=== PATIENT | female | born 1995 | race Caucasian/White ===

== ENCOUNTER 2022-10-13 21:14 | Observation (INO) | payer OTHER, MEDICAID, SELFPAY ==
[2022-10-13] VITALS (9 sets, daily range): BP systolic 105–123; BP diastolic 56–71; PULSE 82–90; TEMP 36.8; BMI 47.2
--- NOTE | ~2022-10-13 | US_ITS ---
EXAMINATION: US OB limited DATE: 10/14/2022 11:22 INDICATION: Assess placenta and amniotic fluid index during late second trimester . TECHNIQUE: Real-time ultrasound of the pelvis was performed. The interpreting radiologist was not pre sent for the study. COMPARISON: None. FINDINGS: There is a single living fetus in breech presentation. The placenta is anterior and fundal. he art rate is 148 beats per minute (bpm). The amniotic fluid index is 17.4 cm, which is normal (5th%-95 %: 9.8-21.9 cm at 24 weeks estimated gestational age). IMPRESSION: 1. Single living fetus in breech presentation with heart rate of 148 bpm. 2. Normal amniotic fluid index of 17.4 cm. 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 Single living fetus in breech presentation with heart rate of 148 bpm . 2. Normal amniotic fluid index of 17.4 cm.
--- NOTE | ~2022-10-13 | US_ITS ---
Limited Abdominal Sonogram: Real-time sonographic imaging of the right upper quadrant was performed. Clinical History: Abdominal pain Findings: The liver appears normal with no evidence of mass lesion or bile duct dilatation. Main por jolly vein demonstrates normal direction of flow. The gallbladder is absent, compatible with prior chol ecystectomy. The common bile duct measures 4 mm. The visualized pancreas, aorta, and IVC are unremar kable. Impression: Status post cholecystectomy. No other significant findings. Reviewed, dictated and finalized at location . 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 No other significant findings.
--- NOTE | 2022-10-13 22:28 | OBADM ---
This patient, Violet Cerda, admitted to the OB room OB Post 117 for observation at 2115 for C/O R upper quadrant pain. States had a history of PP Pre-E with last at 4-5 days PP. States had headache yesterday that was alleviated with PO Tylenol. Denies Marino today. Denies visual disturbances. States BP's have been WNL in office. Patient/family oriented to hospital policies and general routines including ID bracelet, bed and alarms, visiting hours, pain management, procedures, bathroom and other care routines, personal items, smoking policy, room service/diet, and visiting hours. Patient/Family are encouraged to report perceived risks to care and to ask questions if they do not understand what they are told or what they should do.
[2022-10-13 23:05] LABS: Appearance Urine Clear (Clear); Bilirubin Urine Negative (Negative); Blood Urine Negative (Negative); Color Urine Yellow (Yellow); Glucose Urine UA Negative (Negative); Ketones Urine Negative (Negative); Leukocyte Esterase Ur Negative LEU/UL (NEGATIVE); Nitrate Urine Negative (Negative); Protein Urine Negative (Negative); Specific Grav Ur 1.015 (1.001-1.035); Urobilinogen Urine 0.2 mg/dL (<2.0)
[2022-10-13 23:13] LABS: Bacteria Urine Trace /hpf; Mucus Urine Rare /lpf; RBC Urine 0-2 /hpf (0-2); Squamous Epithelial Cell Urine Many /hpf (Few); WBC Urine 0-3 /hpf (0-3)
[2022-10-13 23:14] LABS: Add Urine Microscopic? NO
--- NOTE | 2022-10-13 23:29 | PC.NURSE ---
Loki Brush to give report on patients s/s, urine lab results, and vital signs. Orders to give Pepsid and draw CBC, CMP, amylase, and lipase.
[2022-10-14] VITALS (7 sets, daily range): BP systolic 87–116; BP diastolic 35–62; PULSE 80–100; TEMP 36.5–36.6
[2022-10-14 00:06] LABS: Basophils Percent Auto 0.3 % (0.2-1.2); Eosinophils Absolute Auto 0.1 K/mm3 (0-0.3); Eosinophils Percent Auto 0.5 % (0-4.4); Hematocrit 32.8 % (37.0-47.0); Hemoglobin 11.2 g/dL (12.0-15.0); Immature Granulocyte Absolute 0.06 K/mm3 (0.00-0.031); Immature Granulocyte Percent A 0.5 % (0-0.5); Lymphocytes Absolute Auto 2.02 K/mm3 (0.9-3.2); Lymphocytes Percent Auto 17.2 % (18.3-44.2); Mean Corpuscular HGB Conc 34.1 g/dl (32-36); Mean Corpuscular Hemoglobin 30.5 pg (26-34); Mean Corpuscular Volume 89.4 fl (80-100); Mean Platelet Volume 9.7 fl (7.4-10.4); Monocytes Absolute Auto 0.6 K/mm3 (0.1-0.6); Monocytes Percent Auto 4.8 % (2.6-8.5); Neutrophils Percent Auto 76.7 % (45.5-73.1); Platelet Count Result 213 k/mm3 (150-375); Red Blood Count 3.67 M/mm3 (4.2-5.4); Red Cell Distribution Width 13.8 % (11.5-14.5); White Blood Count 11.7 K/mm3 (4.5-10.0)
[2022-10-14 00:21] LABS: Alanine Aminotransferase 10 U/L (6-35); Albumin Level 3.1 g/dL (3.5-5.1); Alkaline Phosphatase 73 U/L (38-126); Amylase 48 U/L (30-110); Anion Gap 3 mmol/L (8-16); Aspartate Amino Transferase 13 U/L (14-36); Bilirubin,Total 0.4 mg/dL (0.2-1.3); Blood Urea Nitrogen 7 mg/dL (7-17); Calcium 8.4 mg/dL (8.4-10.2); Carbon Dioxide 27 mmol/L (22-30); Chloride 105 mmol/L (98-107); Estimated CRCL calculation 174 ml/min; Estimated Glomerular Filt Rate > 60; Glucose 92 mg/dL (65-110); Lipase 56 U/L (23-300); Potassium 3.4 mmol/L (3.4-5.0); Sodium 135 mmol/L (137-145)
--- NOTE | 2022-10-14 00:22 | PC.NURSE ---
Heart tones found at 150s from . No Contractions noted on the monitor from .
--- NOTE | 2022-10-14 00:31 | PC.NURSE ---
Labs called to Mervin Brush. Orders to make patient NPO and to either d/c her to follow up in the morning for imaging to to stay the night and get imaging in the morning. Trudi said it can be patients choice.
--- NOTE | 2022-10-14 00:53 | PC.NURSE ---
Pt while deciding to stay or go gome got up to the restroom and had a back spasm rating it a 7/10. Previous pain was 4/10. Pt reports she wants to stay due to the increase in pain. Called Mervin Brush and orders to give 10 mg flexeril and if the pain is relieved then no need to imaging in the morning and she can be d/c.
[2022-10-14] MEDS: CYCLOBENZAPRINE HCL 10 MG TABLET PO (01:01)
[2022-10-14] MEDS: CALCIUM CARBONATE (TUMS) 500 MG (200 MG ELEMENTAL) PO (01:21)
[2022-10-14] MEDS: ACETAMINOPHEN 500 MG TABLET 1000 MG PO (04:17)
--- NOTE | 2022-10-14 06:28 | PC.NURSE ---
Report given to LUIS Fraga
--- NOTE | 2022-10-14 08:31 | PC.NURSE ---
Dorothea CABALLERO at the bedside.
[2022-10-14] MEDS: MAG HYDROX/AL HYDROX/SIMETH 30 ML UDC PO (10:06)
--- NOTE | 2022-10-14 10:08 | PC.NURSE ---
Mylanta was given to the pt. Regurgitation of medication noted no additional contents noted in emesis bag. Pt does state she is nauseous. Ultrasound notified and will call when the pt is not throwing up.
[2022-10-14] MEDS: ONDANSETRON HCL ODT 4 MG TABLET SUBLINGUAL (10:43)
--- NOTE | 2022-10-14 11:10 | PC.NURSE ---
pt in ultrasound.
--- NOTE | 2022-10-14 11:49 | PC.NURSE ---
Dorothea updated on the pt ultrasound. Orders received for discharge. Pt is to be started on a bland diet and follow up with [facility] in the next week.
--- NOTE | 2022-11-11 10:41 | P.PNOB_ITS ---
OB - Triage/Final Diagnosis Visit Information Comments/Additional reasons for admission: I have assessed the risk for this patient, Violet Cerda, and determined that she would benefit from observation care. Evaluation Laboratory results: Laboratory Tests 10/13/22 10/13/22 10/13/22 22:43 23:51 23:51 WBC 11.7 H RBC 3.67 L Hgb 11.2 L Hct 32.8 L MCV 89.4 MCH 30.5 MCHC 34.1 RDW 13.8 Plt Count 213 MPV 9.7 Immature Gran % (Auto) 0.5 Neut % (Auto) 76.7 H Lymph % (Auto) 17.2 L [place] % (Auto) 4.8 Eos % (Auto) 0.5 Baso % (Auto) 0.3 Lymph # (Auto) 2.02 [place] # (Auto) 0.6 Eos # (Auto) 0.1 Baso # (Auto) 0.0 Abs Immat Gran (auto) 0.06 H Absolute Neuts (auto) 9.0 H Absolute Nucleated RBC 0.0 Nucleated RBC % 0.0 Sodium 135 L Potassium 3.4 Chloride 105 Carbon Dioxide 27 Anion Gap 3 L BUN 7 Creatinine 0.50 L Estim Creat Clear Calc 174 Estimated GFR > 60 Glucose 92 Calcium 8.4 Total Bilirubin 0.4 AST 13 L ALT 10 Alkaline Phosphatase 73 Total Protein 6.0 L Albumin 3.1 L Amylase 48 Lipase 56 Urine Color Yellow Urine Appearance Clear Urine pH 7.0 Ur Specific Gibbs 1.015 Urine Protein Negative Urine Glucose (UA) Negative Urine Ketones Negative Ur Blood (Man) Negative Urine Nitrate Negative Urine Bilirubin Negative Urine Urobilinogen 0.2 Ur Leukocyte Esterase Negative Urine RBC 0-2 Urine WBC 0-3 Ur Squamous Epith Cells Many H Urine Bacteria Trace Urine Mucus Rare Final Diagnosis (1) Acid reflux: Code(s): K21.9 - Gastro-esophageal reflux disease without esophagitis Status: Acute
== END 2022-10-14 12:55 | disposition home or self-care (01) ==
PROVIDERS: Advanced Practice Midwife; Admitting Provider Obstetrics & Gynecology; PCP Nurse Practitioner Family; Visit Provider Obstetrics & Gynecology
DX: O99.612 Diseases of the digestive system complicating pregnancy, second trimester (principal); K21.9 Gastro-esophageal reflux disease without esophagitis; Z3A.24 24 weeks gestation of pregnancy
CPT/HCPCS: 36415; 76705; 76815; 80053; 81003; 82150; 83690; 85025; A9270; G0378; G0379

== ENCOUNTER 2022-11-25 16:35 | Observation (INO) | payer OTHER, MEDICAID, SELFPAY ==
--- NOTE | 2022-11-25 15:15 | OBADM ---
This patient, Violet Cerda, admitted to the OB room OB Post 116 for observation. Patient/family oriented to hospital policies and general routines including ID bracelet, bed and alarms, visiting hours, pain management, procedures, bathroom and other care routines, personal items, smoking policy, room service/diet, and visiting hours. Patient/Family are encouraged to report perceived risks to care and to ask questions if they do not understand what they are told or what they should do.
[2022-11-25 15:30] VITALS: BMI 49.8
[2022-11-25 15:40] VITALS: BP 109/61; PULSE 103
--- NOTE | 2022-11-25 15:40 | PC.NURSE ---
Susannah Allen notified of blood sugar on adm of 111. Orders to recheck patient sugars after dinner. Patient to remain on unit.
[2022-11-25 15:46] VITALS: BP 102/49; PULSE 103
[2022-11-25 16:01] VITALS: BP 106/63; PULSE 103
[2022-11-25 16:16] VITALS: BP 104/49; PULSE 98
[2022-11-25 16:31] VITALS: BP 100/43; PULSE 100
[2022-11-25 17:42] LABS: Glucose Point of Care 111 mg/dl (65-105)
--- NOTE | 2022-11-25 19:18 | PC.NURSE ---
Blood glucose compared to pt's blood glucose meter. Hospital meter-98, pt's meter-102.
--- NOTE | 2022-11-25 19:20 | PC.NURSE ---
Machelle Allen CNM on unit. Informed of blood glucose levels after dinner. December D/C home.
[2022-11-25 19:25] LABS: Glucose Point of Care 98 mg/dl (65-105)
--- NOTE | 2022-12-08 10:46 | PM.OBTRLD ---
OB - Triage/Final Diagnosis Visit Information Comments/Additional reasons for admission: I have assessed the risk for this patient, Violet Cerda, and determined that she would benefit from observation care. Evaluation Laboratory results: Laboratory Tests 11/25/22 11/25/22 15:37 19:21 POC Capillary Glucose 111 H 98 Final Diagnosis (1) Hyperglycemia: Code(s): R73.9 - Hyperglycemia, unspecified Status: Acute
== END 2022-11-25 19:44 | disposition home or self-care (01) ==
PROVIDERS: Admitting Provider Obstetrics & Gynecology; PCP Nurse Practitioner Family; Referring Provider Advanced Practice Midwife; Visit Provider Obstetrics & Gynecology
DX: O26.893 Other specified pregnancy related conditions, third trimester (principal); R73.9 Hyperglycemia, unspecified; Z3A.30 30 weeks gestation of pregnancy
CPT/HCPCS: 82948; G0378; G0379

== ENCOUNTER 2023-01-11 14:22 | Outpatient (CLI) | payer OTHER, MEDICAID, SELFPAY ==
[2023-01-11 16:02] VITALS: BP 122/61
--- NOTE | 2023-01-11 17:20 | PC.NURSE ---
Dr. Kirby notified of three negative ROM pluses. Patient with complaints of fluid still leaking. Dr. Kirby at bedside for sterile speculum exam. Dr. Kirby in agreement with intact membranes.
--- NOTE | 2023-01-11 17:45 | PC.NURSE ---
Dr. Kofi lara discharging patient. Patient given verbal instructions on when to return back.
== END 2023-01-11 17:44 | disposition home or self-care (01) ==
LOC: ANHOBOP 15:47
PROVIDERS: PCP Family Medicine; Visit Provider Obstetrics & Gynecology
DX: O42.90 Premature rupture of membranes, unspecified as to length of time between rupture and onset of labor, unspecified weeks of gestation (principal); Z3A.00 Weeks of gestation of pregnancy not specified
CPT/HCPCS: 59025; 84112

== ENCOUNTER 2023-01-15 16:11 | Outpatient (CLI) | payer OTHER, MEDICAID, SELFPAY ==
[2023-01-15] VITALS (10 sets, daily range): BP systolic 108–118; BP diastolic 48–76; PULSE 86–107; BMI 49.9
[2023-01-15 17:24] LABS: Glucose Point of Care 93 mg/dl (65-105)
[2023-01-15] MEDS: ACETAMINOPHEN/BUTALBITAL/CAFFEINE 325-50-40 MG TABLET (FIORICET) 1 TAB PO (17:26)
[2023-01-15] MEDS: METOCLOPRAMIDE HCL 5 MG TABLET PO (17:27)
--- NOTE | 2023-01-15 18:10 | OBADM ---
This patient, Violet Cerda, admitted to the OB room OB Post 115 for observation. Patient/family oriented to hospital policies and general routines including ID bracelet, bed and alarms, visiting hours, pain management, procedures, bathroom and other care routines, personal items, smoking policy, room service/diet, and visiting hours. Patient/Family are encouraged to report perceived risks to care and to ask questions if they do not understand what they are told or what they should do.
== END 2023-01-15 19:00 | disposition home or self-care (01) ==
LOC: ANHOBOP 16:18 → ANHOBPP 16:19
PROVIDERS: PCP Family Medicine; Visit Provider Obstetrics & Gynecology
DX: O13.9 Gestational [pregnancy-induced] hypertension without significant proteinuria, unspecified trimester (principal)
CPT/HCPCS: 82948; 99199; A9270

== ENCOUNTER 2023-01-25 10:10 | Outpatient (CLI) | payer OTHER, MEDICAID, SELFPAY ==
[2023-01-25 10:47] LABS: Hematocrit 36.5 % (37.0-47.0); Hemoglobin 12.4 g/dL (12.0-15.0); Mean Corpuscular Hemoglobin 29.8 pg (26-34); Mean Corpuscular Volume 87.7 fl (80-100); Mean Platelet Volume 11.2 fl (7.4-10.4); Platelet Count Result 201 k/mm3 (150-375); Red Blood Count 4.16 M/mm3 (4.2-5.4); Red Cell Distribution Width 13.3 % (11.5-14.5); White Blood Count 10.5 K/mm3 (4.5-10.0)
[2023-01-27 13:16] LABS: Rapid Plasma Reagin Non-Reactive (NonReactive)
== END 2023-01-25 10:11 | disposition home or self-care (01) ==
PROVIDERS: PCP Family Medicine; Visit Provider Obstetrics & Gynecology
DX: Z34.93 Encounter for supervision of normal pregnancy, unspecified, third trimester (principal); Z3A.00 Weeks of gestation of pregnancy not specified
CPT/HCPCS: 36415; 85027; 86592; 86850; 86900; 86901

== ENCOUNTER 2023-01-27 10:00 | Inpatient (IN) | payer OTHER, MEDICAID, SELFPAY ==
--- NOTE | 2023-01-07 13:16 | PC.NURSE ---
Patient states she is going to be C/S for transverse baby-- no on surgery schedule at time of pre-admit Instructed patient to be in OB 2 hours before surgery,NPO after midnight the night before surgery and to get labs drawn prior to surgery as instructed on paper work given to patient at pre-admit appointment
[2023-01-27] VITALS (56 sets, daily range): BP systolic 82–127; BP diastolic 31–94; PULSE 57–147; RESP 15–20; TEMP 36.2–36.8; O2SAT 88–100; BMI 50.5
[2023-01-27 10:56] LABS: Glucose Point of Care 76 mg/dl (65-105)
[2023-01-27] MEDS: CLINDAMYCIN 900 MG/D5W 50 ML 900 MG/50 ML PIGGYBACK 50 MG IVPB (11:06)
[2023-01-27] MEDS: LACTATED RINGERS 1,000 ML 125 ML IV CONT (11:06)
--- NOTE | 2023-01-27 11:51 | WPDANESEPPF ---
Anes - Initial Pre Proc Eval Procedure: Operation Date: 01/27/23 12:00 Proposed Procedures p Section - Mireya Kirby MD Date/Time: 01/27/23 11:51 Surgeon: Mireya Kirby MD Pre Op Diagnosis: C/S Patient Data Age: 27 Gender: F Height: 1.55 m Weight: 121.5 kg Last Vital Signs Pulse 90 01/27/23 11:01 BP 102/69 01/27/23 11:01 Allergies Allergy/AdvReac Type Severity Reaction Status Date / Time hydrocodone Allergy Severe Anaphylaxis Verified 10/14/22 04:07 Penicillins Allergy Severe Anaphylaxis Verified 10/14/22 04:07 amoxicillin Allergy Intermediate Rash Verified 10/14/22 04:07 doxycycline Allergy Intermediate Rash Verified 10/14/22 04:07 nitrofurantoin Allergy Intermediate Hives Verified 10/14/22 04:07 phentermine AdvReac Intermediate Hypertensio Verified 10/14/22 04:07 n Home Medications Medication Instructions Recorded Confirmed Type cholecalciferol (vitamin D3) 1,250 1,250 mcg PO DAILY 03/19/22 01/27/23 History mcg (50,000 unit) capsule aspirin 81 mg tablet,delayed 81 mg PO DIRECTED 10/13/22 01/27/23 History release (Hayley Low Dose Aspirin) vitamin with calcium 1 tablet PO DIRECTED 10/13/22 01/27/23 History no.72-iron 27 mg-folic acid 1 mg tablet ( Vitamins Plus Low Iron) Lactobacillus 1 cap PO DAILY 01/07/23 01/27/23 History acidophilus-Bifidobac.animalis 2.5 billion cell capsule (Daily Probiotic) insulin NPH isoph U-100 human 100 36 unit subcut HS 01/07/23 01/27/23 History unit/mL (3 mL) subcutaneous pen (Humulin N NPH U-100 Insulin KwikPen) Laboratory Tests 01/27/23 10:52 POC Capillary Glucose 76 mg/dl (65-105) Patient hx anesthesia problems: none Family hx anesthesia problems: none Results Review: All pre-operative results and documents have been reviewed as part of the pre-operative evaluation. [facility] Past Medical History Medical History Gestational diabetes Placental insufficiency Preeclampsia Vitamin D deficiency Surgical History Surgical History H/O eye surgery Hx of cholecystectomy Family History Family History Father Colon cancer Diabetes mellitus Heart disease Cirrhosis Patient's father is , Onset Age: 58 Cerebrovascular accident Grandparent Ovarian cancer Diabetes mellitus Heart disease Hypertension Cerebrovascular accident Sibling Yepez's palsy Social History Social History Social History: never smoker Smoking status: Never smoker Alcohol intake: never Substance use: never Lack of Transportation: No Lack of Food: Never True Current Housing: I Have Housing Concerned About Future Housing: No Difficulty Paying Gas/Electric Bills: No Difficulty Paying for Meds: No Currently Unemployed: No Education: High School Diploma/GED Difficulty w/ Childcare or Family Care: No Spiritual care concerns: No Anes - Eval Final PreProcedure Day of Procedure 01/27/23 11:51 Patient weight: super morbidly obese Heart: regular rate and rhythm Lungs: decreased breath sounds Airway: Mallampati scale class II Neurological: alert and oriented Last oral intake: >/= 8 hours ASA classification: III Emergent: no Anesthetic plan: proceed Anesthesia type and monitoring: regional spinal and standard monitoring Results Review: All pre-operative results and documents have been reviewed as part of the pre-operative evaluation. Informed Consent: The patient's anesthetic plan and its attendant risks and benefits were discussed with the patient/family/POA. Questions were solicited and answers provided to the satisfaction of the patient/family/POA.
--- NOTE | 2023-01-27 11:53 | PM.IMHP ---
H&P: HPI History of Present Illness Date/Time: 01/27/23 11:53 Chief Complaint: primary cs Narrative: Violet is a at 39.2 for primary CS for h/o shoulder dystocia with brachial plexus injury. complicated by COVID during , GDMA2 on insulin at HS, CF carrier (FOB neg), obesity. She had PP pRe E last . GBS neg. Review of Systems Review of Systems: All systems reviewed & are unremarkable except as noted in HPI and below PMFSH Past Medical History Medical History Gestational diabetes Placental insufficiency Preeclampsia Vitamin D deficiency Surgical History Surgical History H/O eye surgery Hx of cholecystectomy Family History Family History Father Colon cancer Diabetes mellitus Heart disease Cirrhosis Patient's father is , Onset Age: 58 Cerebrovascular accident Grandparent Ovarian cancer Diabetes mellitus Heart disease Hypertension Cerebrovascular accident Sibling Yepez's palsy Social History Social History Social History: never smoker Smoking status: Never smoker Alcohol intake: never Substance use: never Lack of Transportation: No Lack of Food: Never True Current Housing: I Have Housing Concerned About Future Housing: No Difficulty Paying Gas/Electric Bills: No Difficulty Paying for Meds: No Currently Unemployed: No Education: High School Diploma/GED Difficulty w/ Childcare or Family Care: No Spiritual care concerns: No Meds Home Medications and Allergies Home Medications Medication Instructions Recorded Confirmed Type cholecalciferol (vitamin D3) 1,250 1,250 mcg PO DAILY 03/19/22 01/27/23 History mcg (50,000 unit) capsule aspirin 81 mg tablet,delayed 81 mg PO DIRECTED 10/13/22 01/27/23 History release (Hayley Low Dose Aspirin) vitamin with calcium 1 tablet PO DIRECTED 10/13/22 01/27/23 History no.72-iron 27 mg-folic acid 1 mg tablet ( Vitamins Plus Low Iron) Lactobacillus 1 cap PO DAILY 01/07/23 01/27/23 History acidophilus-Bifidobac.animalis 2.5 billion cell capsule (Daily Probiotic) insulin NPH isoph U-100 human 100 36 unit subcut HS 01/07/23 01/27/23 History unit/mL (3 mL) subcutaneous pen (Humulin N NPH U-100 Insulin KwikPen) Allergies Allergy/AdvReac Type Severity Reaction Status Date / Time hydrocodone Allergy Severe Anaphylaxis Verified 10/14/22 04:07 Penicillins Allergy Severe Anaphylaxis Verified 10/14/22 04:07 amoxicillin Allergy Intermediate Rash Verified 10/14/22 04:07 doxycycline Allergy Intermediate Rash Verified 10/14/22 04:07 nitrofurantoin Allergy Intermediate Hives Verified 10/14/22 04:07 phentermine AdvReac Intermediate Hypertensio Verified 10/14/22 04:07 n Vital Signs Vital Signs - 24 hr 01/27/23 10:31 01/27/23 10:46 01/27/23 11:01 Pulse Rate 80 76 90 Blood Pressure 108/67 110/72 102/69 Exam Const: General: no acute distress Resp: Effort & Inspection: normal respiratory effort Auscultation: clear to auscultation bilaterally Cardio: Rate: regular rate Rhythm: regular rhythm GI: GI Palp: Yes Soft to palpation Extrem: General: normal to inspection Assessment and Plan Assessment and plan (1) GDM, class A2: Code(s): O24.419 - Gestational diabetes mellitus in , unspecified control Status: Acute (2) History of shoulder dystocia in prior : Code(s): Z87.59 - Personal history of other complications of , childbirth and the puerperium Status: Acute (3) Obesity affecting : Code(s): O99.210 - Obesity complicating , unspecified trimester Status: Acute Plan consented for primary CS for
--- NOTE | 2023-01-27 11:57 | WPDHPUPDATE1 ---
History and Physical Update Update Date/Time: 01/27/23 11:57 History and Physical has been reviewed, including an updated exam of the patient. There are NO changes in the patient's condition. Risks, benefits, and alternatives have been discussed and questions answered. Patient agrees to proceed with procedure.
[2023-01-27] MEDS: GENTAMICIN SULFATE INJ 385 MG in DEXTROSE 5% 100 ML 95.12 MG IVPB (12:07)
[2023-01-27] MEDS: KETOROLAC 30 MG/ML VIAL (*BKC) IV PUSH ×2 (12:45→18:07)
--- NOTE | 2023-01-27 13:25 | PM.OBPRVD ---
OB - Delivery Note Procedure Delivery date: 01/27/23 Procedure: Procedures Operation Date: 01/27/23 12:00 <No data on this case meets the specified criteria> primary low transverse section Events: Other (history of shoulder dystocia) Route of delivery: Prior to decision for section, ACOG/SMFM labor guidelines were considered and discussed with the patient and staff. Decision made to proceed with the section.: Yes Specimen: Yes (placenta) Quantitative Blood Loss (ml): 315 Anesthesia type: Spinal Disposition: Floor Complications: none Narrative: PreOp Dx: IUP 39.2, prior shoulder dystocia with brachial plexus injury Post op Dx: same The patient was taken to the OR and received spinal anesthesia. She was placed in dorsal supine position with left lateral tilt. SCDs and carrizales were placed. She was prepped and draped in the normal sterile fashion. A Pfannensteil skin incision was made and carried through to the underlying layer of fascia. The fascia was incised in the midline and then extended laterally using Lang scissors. The muscles were in the midline and the peritoneum was entered bluntly. The peritoneal incision was extended inferiorly and superiorly with care to avoid the bladder. The bladder blade was then inserted, the vesicouterine peritoneum was grasped, incised with Metzenbaum scissors, and a bladder flap created. The bladder blade was reinserted. A low transverse uterine incision was made with a scalpel and extended bluntly. AROM was performed and fluid was noted to be clear. The head was delivered, followed by the remainder of the baby. The baby's oropharynx was suctioned. After 30 seconds, the cord was clamped and cut and the was handed off. Cord blood was obtained and the placenta was then removed manually. The uterus was exteriorized. A moist lap sponge was used to curette the endometrium. The uterine incision was then closed with one layer of 0-Vicryl in a running, locking fashion. Good hemostasis was noted. The posterior cul de sac was irrigated with normal saline and cleared of all clot and debris. The uterus was returned to the abdomen. Both lateral gutters were then irrigated. The rectus muscles were inspected and found to be hemostatic. The fascia was reapproximated using 0-Vicryl in running fashion. The subcutaneous tissue was irrigated with normal saline and made hemostatic with Bovie electrocautery. The subcutaneous tissue was reapproximated with a layer of running 2-0 plain gut. The skin was then closed with absorbable susan. Steri strips and a bandage were applied. The uterus was evacuated. The patient tolerated the procedure very well. All counts were correct. She was taken to the recovery room in good condition. [place] Baby Date of : 01/27/23 Time of : 12:40 Weeks of gestation at delivery: 39 Infant gender: Male Weight (pounds): 7 Weight (ounces): 7 presentation: vertex Placenta delivery description: Manual Removal Cord Vessel Description: 3 Vessels and Delayed Cord Clamping score one minute: 8 score five minutes: 9
[2023-01-27] MEDS: OXYTOCIN 30 UNITS/NS 500 ML 30 UNITS/500 ML BAG 125 UNITS IV CONT (13:42)
[2023-01-27] MEDS: diphenhydrAMINE HCl INJ 50 MG/ML VIAL 25 MG IV PUSH (15:30)
--- NOTE | 2023-01-27 16:53 | PC.NURSE ---
Patient transferred to post room #292 via stretcher. Support person present. Oriented to unit, room, information board, rooming in, admission packet and security measures. Patient verbalizes understanding.
[2023-01-27] MEDS: KCL 20 MEQ/D5/0.45% SOD CHL 1,000 ML 125 ML IV CONT (18:03)
[2023-01-27] MEDS: oxyCODONE/ACETAMINOPHEN (*CRX) 5-325 MG TABLET 1 TABLET PO (22:39)
[2023-01-28] MEDS: KETOROLAC 30 MG/ML VIAL (*BKC) IV PUSH (00:01)
[2023-01-28] MEDS: oxyCODONE/ACETAMINOPHEN (*CRX) 5-325 MG TABLET 1 TABLET PO ×5 (05:42→22:58)
[2023-01-28] MEDS: IBUPROFEN 600 MG TABLET PO ×3 (05:43→18:51)
[2023-01-28 06:15] LABS: Basophils Percent Auto 0.2 % (0.2-1.2); Eosinophils Percent Auto 0.2 % (0-4.4); Hematocrit 30.7 % (37.0-47.0); Hemoglobin 10.1 g/dL (12.0-15.0); Immature Granulocyte Absolute 0.06 K/mm3 (0.00-0.031); Immature Granulocyte Percent A 0.6 % (0-0.5); Lymphocytes Absolute Auto 1.54 K/mm3 (0.9-3.2); Lymphocytes Percent Auto 15.7 % (18.3-44.2); Mean Corpuscular HGB Conc 32.9 g/dl (32-36); Mean Corpuscular Hemoglobin 29.6 pg (26-34); Mean Platelet Volume 11.5 fl (7.4-10.4); Monocytes Absolute Auto 0.6 K/mm3 (0.1-0.6); Monocytes Percent Auto 5.8 % (2.6-8.5); Neutrophils Absolute Auto 7.6 K/mm3 (1.3-6.7); Neutrophils Percent Auto 77.5 % (45.5-73.1); Platelet Count Result 151 k/mm3 (150-375); Red Blood Count 3.41 M/mm3 (4.2-5.4); Red Cell Distribution Width 13.5 % (11.5-14.5); White Blood Count 9.8 K/mm3 (4.5-10.0)
--- NOTE | 2023-01-28 07:52 | PM.OBPNVD ---
OB - PN: Subj Subjective Date/time seen: 01/28/23 07:52 Patient comments: no complaints and pain well controlled baby status: doing well [place] feeding status: breast and bottle feeding Narrative: POD 1 from primary CS. Doing well. Normal lochia. Eating, ambulating, carrizales still in. OB - PN: Obj Data Labs 01/28/23 04:53 Labs: Laboratory Results - last 24 hr 01/27/23 01/28/23 10:52 04:53 WBC 9.8 RBC 3.41 L Hgb 10.1 L Hct 30.7 L MCV 90.0 MCH 29.6 MCHC 32.9 RDW 13.5 Plt Count 151 MPV 11.5 H Immature Gran % (Auto) 0.6 H Neut % (Auto) 77.5 H Lymph % (Auto) 15.7 L [place] % (Auto) 5.8 Eos % (Auto) 0.2 Baso % (Auto) 0.2 Lymph # (Auto) 1.54 [place] # (Auto) 0.6 Eos # (Auto) 0.0 Baso # (Auto) 0.0 Abs Immat Gran (auto) 0.06 H Absolute Neuts (auto) 7.6 H Absolute Nucleated RBC 0.0 Nucleated RBC % 0.0 POC Capillary Glucose 76 OB - PN A/P Plan day: 1 Plan: routine care Comments: circumcision done Time Spent With Patient Time: Total time spent is greater than 50% in coordination of care (as documented) at patient's floor/unit and/or counseling patient: Exam Narrative: NAD abdomen soft, appropriately tender, incision bandaged Extremities nontender with 1+ edema
--- NOTE | 2023-01-28 08:01 | WPDANLDPN2 ---
Anes-Prog Note L&D Date/Time: 01/28/23 08:01 Neuro status: Neuro function grossly intact. Vital Signs: Last Vital Signs Temp 36.8 C 01/27/23 23:35 Pulse 88 01/27/23 23:35 Resp 20 01/27/23 23:35 BP 119/76 01/27/23 23:35 Pulse Ox 97 01/27/23 23:35 O2 Del Method Room Air 01/27/23 15:30 Pain score (VAS): 0 I/O: Intake & Output 01/27/23 01/28/23 01/28/23 23:59 07:59 15:59 Intake Total 1200 Output Total 725 800 Balance 475 -800 Patient feedback: Patient satisfied with anesthetic care.
--- NOTE | 2023-01-28 08:01 | WPDANLDNPN2 ---
Anes-Prog Note L&D-Neuraxial Date/Time: 01/28/23 08:01 Patient feedback: Patient satisfied with post-operative pain management.
[2023-01-28 08:55] VITALS: BP 116/67; PULSE 79; RESP 16; TEMP 36.5; O2SAT 98
[2023-01-28] MEDS: DOCUSATE SODIUM 100 MG CAPSULE PO ×2 (09:50→16:34)
[2023-01-28] MEDS: MULTIVIT/MIN/PREN/FOL AC/IRON TABLET 1 TAB PO (09:50)
[2023-01-28 12:33] VITALS: BP 120/82; PULSE 88; RESP 18; TEMP 36.7; O2SAT 97
--- NOTE | 2023-01-28 16:12 | PC.NURSE ---
[id number] Introductions were made, then consulted with patient to assess needs related to . Mother led the conversation with her?plans to feed?her infant and the?experience so far. Resources provided for inpatient and outpatient services with the feeding sheet, mom/baby guide and name written on the white board. Mother voiced understanding of information and requested assistance. Mother works well with her with encouragement and education. Encouraged understanding of the benefits of skin to skin (demonstrating unwrapping infant and placing upright on her chest), stimulating with massage touch, changing positions to encourage wakefulness, how to watch for early feeding cues, responsive feeding, feeding on demand (aiming for 8-12 times in 24 hours, about every 2-3 hours), milk production, building/maintaining a milk supply, duration of feeding, signs of adequate intake/output and how to record on the feeding sheet. Reviewed positioning and ear, shoulder, hip alignment, supporting the breast to facilitate a deep latch, asymmetrical latch (off-center), leading with the chin with a big, open, wide gape and body close to mother. Infant latched optimally to the right breast in football position. Education given to mother of how to visualize suck/swallow ratios and listen for drinking at the breast. Infant was able to maintain latch without discomfort to mother. Nipple care reviewed with optimal latch and good positioning. Reviewed good handwashing when or touching the breast/nipples to prevent infection. Resources used to facilitate learning were used with the tool. Mother voiced understanding of skin to skin, stimulating with massage touch, responsive feedings, hand expressed colostrum, talking to infant to encourage if it has been 2 -2.5 hours since the start of the last , to call if does not latch, or if there is discomfort with . Resources provided for inpatient/outpatient with business card, feeding sheet and the mom/baby guide. Mother voiced understanding of information, demonstrated learning and will call if there is a request for assistance. Reported to the primary RN.
[2023-01-29 00:04] VITALS: BP 105/68; PULSE 92; RESP 17; TEMP 36.5; O2SAT 98
[2023-01-29] MEDS: IBUPROFEN 600 MG TABLET PO ×2 (01:05→08:35)
[2023-01-29] MEDS: oxyCODONE/ACETAMINOPHEN (*CRX) 5-325 MG TABLET 1 TABLET PO ×3 (02:50→13:03)
--- NOTE | 2023-01-29 07:27 | PM.OBPNVD ---
OB - PN: Subj Subjective Date/time seen: 01/29/23 07:27 Patient comments: no complaints and pain well controlled baby status: doing well and bottle feeding well Narrative: ready for DC today OB - PN: Obj Data Labs 01/28/23 04:53 OB - PN A/P Plan day: 2 Plan: routine care and discharge home Time Spent With Patient Time: Total time spent is greater than 50% in coordination of care (as documented) at patient's floor/unit and/or counseling patient: Exam Narrative: NAD abdomen soft, appropriately tender, incision CDI Extremities nontender with 1+ edema
[2023-01-29 07:30] VITALS: BP 123/76; PULSE 88; RESP 16; TEMP 37; O2SAT 96
--- NOTE | 2023-01-29 07:30 | PM.OBDSVD ---
DS: Admitting Diagnosis Discharge Date 01/29/23 Admitting Diagnosis IUP 39w, history of shoulder dystocia DS: Discharge Diagnosis Discharge Diagnosis (1) delivery delivered: Code(s): O82 - Encounter for delivery without indication Status: Acute (2) History of shoulder dystocia in prior : Code(s): Z87.59 - Personal history of other complications of , childbirth and the puerperium Status: Acute OB - DS: Summary Hospital Course Hospital Course: Violet was admitted for primary section for history of shoulder dystocia. Her delivery and course were uncomplicated and she was discharged home on POD 2. OB Procedures : Ultrasound OB Procedures Intrapartum: OB Procedures: : None Peripartum Data Delivery Method: Section Procedures: Procedures Operation Date: 01/27/23 12:00 Actual Procedure Side Surgeon p Section Mireya Kirby MD complications: none Status at Discharge Functional status at discharge: independent ambulation Time Spent with Patient Time attestation: Total time spent providing and/or coordinating discharge services: Exam Narrative: NAD abdomen soft, appropriately tender, incision CDI Discharge Plan Discharge Attending physician on discharge: Mireya Kirby Discharging Clinician: Mireya Kirby Anticipated Discharge Date/Time: 01/29/23 07:27 Patient Disposition: Home, Self-Care Activity: may shower, may drive after 2 weeks and pelvic rest Diet: regular Patient Instructions: Antibiotic Form Stand Alone Forms: General Discharge Information Follow-up/Referrals: Mireya Kirby MD [Physician] - 1 Week Discharge Medications: New oxycodone-acetaminophen 5-325 mg Tablet 1 tablet PO Q4H PRN (Reason: Pain Rated 5-10) Qty: 30 0RF docusate sodium 100 mg Capsule 100 mg PO BID PRN (Reason: Constipation) Qty: 60 0RF ibuprofen 600 mg Tablet 600 mg PO Q6H PRN (Reason: Cramping) Qty: 60 0RF Continued cholecalciferol (vitamin D3) 1,250 mcg (50,000 unit) capsule 1,250 mcg PO DAILY Vitamin Plus Low Iron 27 mg iron- 1 mg Tablet 1 tablet PO DIRECTED Daily Probiotic 2.5 billion cell Capsule 1 cap PO DAILY Discontinued aspirin [Hayley Low Dose Aspirin] 81 mg Tablet,Delayed Release (Dr/Ec) 81 mg PO DIRECTED Humulin N NPH Insulin AshwiniPen 100 unit/mL (3 mL) Insulin Pen 36 unit SUBCUT HS Date of admission: 01/27/23 10:00 Primary Care Provider: Ene,[place] Carty Admitting Provider: Mireya Kirby Attending physician on admission: Mireya Kirby Condition: Stable
[2023-01-29] MEDS: MULTIVIT/MIN/PREN/FOL AC/IRON TABLET 1 TAB PO (08:35)
[2023-01-29] MEDS: DOCUSATE SODIUM 100 MG CAPSULE PO (08:36)
[2023-01-29] MEDS: SIMETHICONE 80 MG TAB.CHEW PO (08:36)
[2023-01-29] MEDS: TETANUS,DIPHTHERIA,AC PERTUSSIS ADULT (0.5 ML) BOOSTRIX IM (08:37)
[2023-01-29] MEDS: LANOLIN (LANSINOH) 7.5 GM CREAM 1 APPLIC TOPICAL (08:38)
[2023-01-29 08:45] VITALS: PULSE 88; RESP 16; O2SAT 96
--- NOTE | 2023-01-29 08:45 | PC.NURSE ---
PT introductions made and plan of care discussed per post op c section, pain management, breast feeding, pumping and supplementing, daily care activities and pending discharge to home. PT and spouse both recipients of such instructions and no barriers to learning identified at this time. PT received such instructions via one to one discussion, mom baby care guide and demonstrations this shift. PT verbalized understanding of such care.
--- NOTE | 2023-01-29 13:00 | PC.NURSE ---
Pt received discharge instructions per protocol and verbalized understanding of such care. Patient viewed the discharge video Mother & Baby Care, The First Two Weeks . Patient was given the opportunity and encouraged to ask questions. Patient verbalized understanding of information shared and has been given the mother/baby guide for home reference.
--- NOTE | 2023-01-29 13:28 | PC.NURSE ---
[id number] Purposefully rounded to assess needs. Mother is going to take a shower and call for assistance later. [phone] Mother requested assistance with . Mother led conversation with her experience with feeding baby so far and is concerned that isn't getting enough in his mouth. Mother works well with her with encouragement. Reviewed working with infant, supporting breast and how to protect the nipples with an optimal deep latch, good positioning, and good hand washing. Encouraged understanding the benefits of skin to skin, responding to feeding cues, frequencies of feeding 8-12 times in 24 hours (approximately 2-3 hours), duration of feedings, milk production, intake/output feeding sheet and signs of adequate intake encouraging swallowing at the breast. Reviewed positioning and alignment, supporting breast, off-centered (asymmetrical latch) and leading with the chin with big, open, wide gape. latched optimally to the left, then the right breast in football position. Mother states there is discomfort with the initial latch, then it subsides. Education given to mother of how to visualize suck/swallow ratios and listen for drinking at the breast. was able to maintain latch without discomfort to mother, however, at times mother states if felt pinchy . Slight misshaping was visualized after was detached from the left breast, which the parents state has been the more difficult side to latch to. Nipple care reviewed with optimal latch, good positioning and using clean hands when feeding her infant and touching her breast. Discussed deep latching without pain and suggested a conversation with the ICP concerning the lower frenulum visualized as tight. Mother states at times it is uncomfortable to latch but it subsides and other times it is painful. Reviewed how to detach, protecting her nipple with big, wide,open gape deep with a mouthful. If has difficulty or there is pain with latching to call for support and/or the ICP to reassess the lower frenulum. Infant was able to latch to the right breast without misshaping the nipple. Parents were given the risks and benefits of bottle feeding their infant breast milk, formula, and how to protect the milk supply.Resources used to facilitate learning were used from the tool, mom and baby guide, and several questions were asked from the parents and appropriately answered. Mother shares her confidence in her ability to feed her either with , pump and breast milk, or father feeding a bottle of formula. Reminded parents to use good handwashing technique to prevent infection and what to do if infection occurs. Mother is feeding appropriately for growth of infant and understands stimulating infant to eat if needed. has had appropriate feedings in the last 24 hours meets the outcomes for weight, output and jaundice at this time. Reinforced understanding of milk production, transition of milk, signs of adequate intake, transition of stool, prevention/relief of engorgement and masitis, responsive watching for feeding cues, the different methods of stimulating infant to breastfeed 2-3 hours after the start of the last feeding, community resources, medication information reviewed per [employer] and when to call a provider using the resource of the mom and baby guide. Parents voiced understanding of the education shared.
--- NOTE | 2023-01-29 14:00 | PC.NURSE ---
Pt discharged to home ambulatory accompanied by spouse and and taken to waiting car. follow up appts confirmed
[2023-01-31 10:25] VITALS: BP 133/88; PULSE 88; RESP 20; TEMP 36.8; O2SAT 100
== END 2023-01-29 14:00 | disposition home or self-care (01) | DRG 788 ==
LOC: ANHLDR 10:12 → ANHOB2 16:57
PROVIDERS: Admitting Provider Obstetrics & Gynecology; PCP Family Medicine; Visit Provider Obstetrics & Gynecology
PROC: 10D00Z1 Extraction of Products of Conception, Low, Open Approach (ICD-10-PCS; CPT 59514; principal; 2023-01-27 12:00)
DX: O34.219 Maternal care for unspecified type scar from previous cesarean delivery (principal); O99.214 Obesity complicating childbirth; O24.424 Gestational diabetes mellitus in childbirth, insulin controlled; Z3A.39 39 weeks gestation of pregnancy; Z37.0 Single live birth; Z87.59 Personal history of other complications of pregnancy, childbirth and the puerperium; Z86.16 Personal history of COVID-19
CPT/HCPCS: 36415; 82948; 85025; 85027; 86592; 86850; 86900; 86901; 90715; A9270; J1200; J1580; J1885; J2274; J2370; J2590; J3480; J7120

== ENCOUNTER 2023-01-30 16:39 | Outpatient (CLI) | payer OTHER, MEDICAID, SELFPAY ==
[2023-01-30 17:10] VITALS: BP 113/63; PULSE 85
[2023-01-30 17:13] VITALS: BP 128/78; PULSE 88
[2023-01-30 17:16] VITALS: BP 133/79; PULSE 87
[2023-01-30 17:31] VITALS: BP 120/76; PULSE 84
[2023-01-30 17:32] VITALS: BP 124/78; PULSE 86
--- NOTE | 2023-01-30 17:39 | PC.NURSE ---
Dr. No notified of patient in unit. Blood pressure readings given. OK to go home per Dr. No. Educated patient on pain medications, fluids and rest. Patient verbalized understanding.
== END 2023-01-30 17:40 | disposition home or self-care (01) ==
LOC: ANHOBPP 16:53 → ANHOBOP 01-31 10:25
PROVIDERS: PCP Family Medicine; Visit Provider Obstetrics & Gynecology
DX: O13.9 Gestational [pregnancy-induced] hypertension without significant proteinuria, unspecified trimester (principal)
CPT/HCPCS: 99199

== ENCOUNTER 2023-03-13 14:07 | Inpatient (IN) | payer OTHER, MEDICAID, SELFPAY ==
[2023-03-13] VITALS (25 sets, daily range): BP systolic 119–164; BP diastolic 72–118; PULSE 65–91; RESP 14–25; TEMP 36.2–36.9; O2SAT 97–100
--- NOTE | ~2023-03-13 | CT_ITS ---
EXAMINATION: CT brain wo con DATE: 03/13/2023 15:01 INDICATION: Headache. . TECHNIQUE: Computed tomography (CT) of the head was performed without intravenous contrast. The mA wa s adjusted according to patient size. Iterative reconstruction technique was employed. The dose-lengt h product was 605.33 mGy-cm. COMPARISON: None FINDINGS: There is no intracranial hemorrhage, acute infarction, or abnormal intracranial mass lesion . The ventricles are normal in size. The orbits are normal. There is mild mucosal thickening in the e thmoid sinuses. The mastoid air cells are normal. IMPRESSION: 1. Normal brain. Reviewed, dictated and finalized at location A. IMPRESSION: 1. Normal brain.
--- NOTE | ~2023-03-13 | XR_ITS ---
EXAMINATION: XR chest 1V DATE: 03/13/2023 15:05 INDICATION: Hypertension. Headache. TECHNIQUE: A single frontal view of the chest was obtained. COMPARISON: None. FINDINGS: The chest demonstrates clear lungs without pneumonia, pleural effusion, or pneumothorax. Th e heart size is normal. IMPRESSION: 1. No acute cardiopulmonary disease. Reviewed, dictated and finalized at location A.
--- NOTE | 2023-03-13 14:34 | ED.GENADULT ---
HPI - General Adult General Chief complaint: Recheck/Abnormal Lab/Rx <Jacek Darnell PA-C - Last Filed: 03/14/23 08:57> Stated complaint: htn, headache, <Jacek Darnell PA-C - Last Filed: 03/14/23 08:57> Time Seen by Provider: 03/13/23 14:22 <Jacek Darnell PA-C - Last Filed: 03/14/23 08:57> Source: patient <Jacek Darnell PA-C - Last Filed: 03/14/23 08:57> Mode of arrival: ambulatory <Jacek Darnell PA-C - Last Filed: 03/14/23 08:57> Limitations: no limitations <Jacek Darnell PA-C - Last Filed: 03/14/23 08:57> History of Present Illness HPI narrative: This is a 27-year-old female who presents to the ED with chief complaint of high blood pressures and headache ongoing for the past couple of days. She is 6 weeks . She reports headache is diffuse and has been mild for the past few days and easily controllable with Tylenol. However she started to have more severe headache today about 2 hours prior to arrival so she called her OB office. She states they instructed her to present to labor and delivery which she did and they sent her to the ER for initial evaluation. Patient also reports intermittent right upper quadrant pain. She is status post cholecystectomy. Denies numbness, weakness, vision changes, speech problems, LOC, injury. <Jacek Darnell PA-C - Last Filed: 03/14/23 08:57> Related Data Home medications: Home Medications Medication Instructions Recorded Confirmed cholecalciferol (vitamin D3) 1,250 1,250 mcg PO WEEKLY 03/19/22 03/15/23 mcg (50,000 unit) capsule vitamin with calcium 1 tablet PO DIRECTED 10/13/22 03/13/23 no.72-iron 27 mg-folic acid 1 mg tablet ( Vitamins Plus Low Iron) Lactobacillus 1 cap PO DAILY 01/07/23 03/13/23 acidophilus-Bifidobac.animalis 2.5 billion cell capsule (Daily Probiotic) acetaminophen 500 mg tablet 1,000 mg PO Q6H PRN Pain or 03/15/23 03/15/23 (Tylenol Extra Strength) Headache ibuprofen 600 mg tablet 600 mg PO Q6H PRN Cramping or 03/15/23 03/15/23 Headache <Jacek Darnell PA-C - Last Filed: 03/14/23 08:57> Allergies/adverse reactions: Allergies Allergy/AdvReac Type Severity Reaction Status Date / Time hydrocodone Allergy Severe Anaphylaxis Verified 03/14/23 10:03 Penicillins Allergy Severe Anaphylaxis Verified 03/14/23 10:03 amoxicillin Allergy Intermediate Rash Verified 03/14/23 10:03 doxycycline Allergy Intermediate Rash Verified 03/14/23 10:03 nitrofurantoin Allergy Intermediate Hives Verified 03/14/23 10:03 phentermine AdvReac Intermediate Hypertensio Verified 03/14/23 10:03 n <Jacek Darnell PA-C - Last Filed: 03/14/23 08:57> [facility] Past Medical History Medical History: Medical History Gestational diabetes Placental insufficiency Preeclampsia Vitamin D deficiency <Jacek Darnell PA-C - Last Filed: 03/14/23 08:57> Surgical History Surgical History: Surgical History H/O eye surgery Hx of cholecystectomy <Jacek Darnell PA-C - Last Filed: 03/14/23 08:57> Family History Family History: Family History Father Colon cancer Diabetes mellitus Heart disease Cirrhosis Patient's father is , Onset Age: 58 Cerebrovascular accident Grandparent Ovarian cancer Diabetes mellitus Heart disease Hypertension Cerebrovascular accident Sibling Yepez's palsy <Jacek Darnell PA-C - Last Filed: 03/14/23 08:57> Social History Social History: Social History Social History: never smoker Smoking status: Never smoker Alcohol intake: never Substance use: never Lack of Transportation: No Lack of Food: Never True Current Housing: I Have Housing Concerned About Future Housing: N
[2023-03-13 15:23] LABS: Basophils Percent Auto 0.6 % (0.2-1.2); Eosinophils Absolute Auto 0.1 K/mm3 (0-0.3); Eosinophils Percent Auto 1.6 % (0-4.4); Hemoglobin 13.3 g/dL (12.0-15.0); Immature Granulocyte Absolute 0.02 K/mm3 (0.00-0.031); Immature Granulocyte Percent A 0.3 % (0-0.5); Lymphocytes Absolute Auto 1.86 K/mm3 (0.9-3.2); Lymphocytes Percent Auto 29.3 % (18.3-44.2); Mean Corpuscular HGB Conc 32.4 g/dl (32-36); Mean Corpuscular Hemoglobin 28.1 pg (26-34); Mean Corpuscular Volume 86.7 fl (80-100); Mean Platelet Volume 10.1 fl (7.4-10.4); Monocytes Absolute Auto 0.3 K/mm3 (0.1-0.6); Monocytes Percent Auto 4.7 % (2.6-8.5); Neutrophils Percent Auto 63.5 % (45.5-73.1); Platelet Count Result 282 k/mm3 (150-375); Red Blood Count 4.73 M/mm3 (4.2-5.4); White Blood Count 6.4 K/mm3 (4.5-10.0)
[2023-03-13 15:32] LABS: Appearance Urine Clear (Clear); Bacteria Urine None Seen /hpf; Bilirubin Urine Negative (Negative); Blood Urine Negative (Negative); Color Urine Yellow (Yellow); Glucose Urine UA Negative (Negative); Ketones Urine Negative (Negative); Leukocyte Esterase Ur 2+ LEU/UL (Negative); Nitrate Urine Negative (Negative); Non Pathogenic Casts 0-2; Protein Urine Negative (Negative); RBC Urine 0-2 /hpf (0-2); Specific Grav Ur 1.019 (1.001-1.035); Squamous Epithelial Cell Urine None seen /hpf (Few); WBC Urine 51-100 /hpf
[2023-03-13 15:35] LABS: Add Urine Microscopic? YES; Alanine Aminotransferase 71 U/L (6-35); Albumin Level 4.6 g/dL (3.5-5.1); Alkaline Phosphatase 124 U/L (38-126); Anion Gap 6 mmol/L (8-16); Aspartate Amino Transferase 48 U/L (14-36); Blood Urea Nitrogen 13 mg/dL (7-17); Calcium 9.5 mg/dL (8.4-10.2); Carbon Dioxide 31 mmol/L (22-30); Chloride 102 mmol/L (98-107); Estimated CRCL calculation 139 ml/min; Estimated Glomerular Filt Rate > 60; Glucose 103 mg/dL (65-110); Magnesium 2.1 mg/dL (1.6-2.3); Phosphorus 4.3 mg/dL (2.5-4.5); Potassium 3.8 mmol/L (3.4-5.0); Sodium 139 mmol/L (137-145)
[2023-03-13] MEDS: MAGNESIUM SULF 4 GM/WATER100ML 4 GM/100 ML BAG IVPB (15:38)
[2023-03-13] MEDS: SODIUM CHLORIDE 0.9% IV 1,000 ML 125 ML IV CONT (16:47)
[2023-03-13] MEDS: ACETAMINOPHEN 325 MG TABLET 650 MG PO (17:07)
[2023-03-13] MEDS: LACTATED RINGERS 1,000 ML 75 ML IV CONT (19:04)
[2023-03-13] MEDS: MAGNESIUM SULF 20GM/WATER500ML 500 ML 50 MG IV CONT (19:10)
--- NOTE | 2023-03-13 19:55 | PC.NURSE ---
1930: pt states she feels much better than she did before, states she does not have any right upper abdominal pain, no visual disturbances, headache that is going from 1-3, no swelling, lung sounds clear in all quadrants, reflexes +2 bilateral patellar, no clonus, instructed pt to relax and turn lights out in room as well as keeping conversation with visitor minimal.
[2023-03-13] MEDS: ACETAMINOPHEN/BUTALBITAL/CAFFEINE 325-50-40 MG TABLET (FIORICET) 1 TAB PO (21:18)
[2023-03-13] MEDS: LABETALOL HCL 100 MG TABLET 200 MG PO (21:18)
[2023-03-14] VITALS (18 sets, daily range): BP systolic 104–143; BP diastolic 55–94; PULSE 69–97; RESP 15–18; TEMP 36.2–37.2; O2SAT 95–99
[2023-03-14] MEDS: MAGNESIUM SULF 20GM/WATER500ML 500 ML 50 MG IV CONT (04:30)
[2023-03-14 08:01] LABS: Alanine Aminotransferase 65 U/L (6-35); Albumin Level 3.9 g/dL (3.5-5.1); Alkaline Phosphatase 121 U/L (38-126); Anion Gap 8 mmol/L (8-16); Aspartate Amino Transferase 51 U/L (14-36); Bilirubin,Total 0.7 mg/dL (0.2-1.3); Blood Urea Nitrogen 10 mg/dL (7-17); Calcium 7.4 mg/dL (8.4-10.2); Carbon Dioxide 28 mmol/L (22-30); Chloride 104 mmol/L (98-107); Estimated CRCL calculation 120 ml/min; Estimated Glomerular Filt Rate > 60; Glucose 103 mg/dL (65-110); Potassium 4.1 mmol/L (3.4-5.0); Sodium 140 mmol/L (137-145)
--- NOTE | 2023-03-14 08:34 | PC.NURSE ---
rounded on patient this AM. Verbal orders received to discontinue magnesium sulfate drip at 24 hour christy and repeat [facility] labs tomorrow morning (03/15).
[2023-03-14 08:40] LABS: Alanine Aminotransferase 65 U/L (6-35); Albumin Level 3.9 g/dL (3.5-5.1); Alkaline Phosphatase 121 U/L (38-126); Anion Gap 8 mmol/L (8-16); Aspartate Amino Transferase 51 U/L (14-36); Bilirubin,Total 0.7 mg/dL (0.2-1.3); Blood Urea Nitrogen 10 mg/dL (7-17); Calcium 7.4 mg/dL (8.4-10.2); Carbon Dioxide 28 mmol/L (22-30); Chloride 104 mmol/L (98-107); Estimated CRCL calculation 120 ml/min; Estimated Glomerular Filt Rate > 60; Glucose 103 mg/dL (65-110); Potassium 4.1 mmol/L (3.4-5.0); Sodium 140 mmol/L (137-145); Uric Acid 6.1 mg/dL (2.5-7.5)
[2023-03-14 08:45] LABS: Basophils Percent Auto 0.6 % (0.2-1.2); Eosinophils Absolute Auto 0.1 K/mm3 (0-0.3); Eosinophils Percent Auto 1.7 % (0-4.4); Hematocrit 38.2 % (37.0-47.0); Hemoglobin 12.3 g/dL (12.0-15.0); Immature Granulocyte Absolute 0.02 K/mm3 (0.00-0.031); Immature Granulocyte Percent A 0.3 % (0-0.5); Lymphocytes Absolute Auto 1.85 K/mm3 (0.9-3.2); Lymphocytes Percent Auto 28.2 % (18.3-44.2); Mean Corpuscular HGB Conc 32.2 g/dl (32-36); Mean Corpuscular Hemoglobin 28.1 pg (26-34); Mean Corpuscular Volume 87.4 fl (80-100); Monocytes Absolute Auto 0.4 K/mm3 (0.1-0.6); Monocytes Percent Auto 5.3 % (2.6-8.5); Neutrophils Absolute Auto 4.2 K/mm3 (1.3-6.7); Neutrophils Percent Auto 63.9 % (45.5-73.1); Platelet Count Result 274 k/mm3 (150-375); Red Blood Count 4.37 M/mm3 (4.2-5.4); Red Cell Distribution Width 12.1 % (11.5-14.5); White Blood Count 6.6 K/mm3 (4.5-10.0)
--- NOTE | 2023-03-14 08:51 | PM.IMHP ---
H&P: HPI History of Present Illness Date/Time: 03/14/23 08:51 Chief Complaint: headache Narrative: Violte is 6weeks pp who presented to the ED yesterday afternoon with a severe mostly right sided WEEKS. Found to have severely elevated BPs and mildly elevated LFTs. Admitted for magnesium for pp preE, which she also had in a prior . She states she still has a WEEKS but not as severe as on presentation. Has been taking fioricet q 4 hours around the clock and it is not helping. UOP good. Slept well last night. Review of Systems Review of Systems: All systems reviewed & are unremarkable except as noted in HPI and below PMFSH Past Medical History Medical History Gestational diabetes Placental insufficiency Preeclampsia Vitamin D deficiency Surgical History Surgical History H/O eye surgery Hx of cholecystectomy Family History Family History Father Colon cancer Diabetes mellitus Heart disease Cirrhosis Patient's father is , Onset Age: 58 Cerebrovascular accident Grandparent Ovarian cancer Diabetes mellitus Heart disease Hypertension Cerebrovascular accident Sibling Yepez's palsy Social History Social History Social History: never smoker Smoking status: Never smoker Alcohol intake: never Substance use: never Lack of Transportation: No Lack of Food: Never True Current Housing: I Have Housing Concerned About Future Housing: No Difficulty Paying Gas/Electric Bills: No Difficulty Paying for Meds: No Currently Unemployed: No Education: High School Diploma/GED Difficulty w/ Childcare or Family Care: No Spiritual care concerns: No Meds Home Medications and Allergies Home Medications Medication Instructions Recorded Confirmed Type cholecalciferol (vitamin D3) 1,250 1,250 mcg PO DAILY 03/19/22 03/13/23 History mcg (50,000 unit) capsule vitamin with calcium 1 tablet PO DIRECTED 10/13/22 03/13/23 History no.72-iron 27 mg-folic acid 1 mg tablet ( Vitamins Plus Low Iron) Lactobacillus 1 cap PO DAILY 01/07/23 03/13/23 History acidophilus-Bifidobac.animalis 2.5 billion cell capsule (Daily Probiotic) Allergies Allergy/AdvReac Type Severity Reaction Status Date / Time hydrocodone Allergy Severe Anaphylaxis Verified 10/14/22 04:07 Penicillins Allergy Severe Anaphylaxis Verified 10/14/22 04:07 amoxicillin Allergy Intermediate Rash Verified 10/14/22 04:07 doxycycline Allergy Intermediate Rash Verified 10/14/22 04:07 nitrofurantoin Allergy Intermediate Hives Verified 10/14/22 04:07 phentermine AdvReac Intermediate Hypertensio Verified 10/14/22 04:07 n Vital Signs Vital Signs - 24 hr 03/13/23 14:11 03/13/23 14:24 03/13/23 14:22 Temperature 97.2 F L 98.5 F Pulse Rate 76 75 76 Respiratory Rate 18 16 22 H Blood Pressure 161/117 H 164/115 H 156/114 H Pulse Oximetry 100 100 Oxygen Delivery Room Air Room Air 03/13/23 14:23 03/13/23 14:24 03/13/23 14:30 Temperature Pulse Rate 75 74 74 Respiratory Rate 15 22 H 15 Blood Pressure 164/115 H Pulse Oximetry Oxygen Delivery 03/13/23 14:41 03/13/23 14:47 03/13/23 15:08 Temperature Pulse Rate 80 83 76 Respiratory Rate 19 23 H 20 Blood Pressure 163/118 H 149/88 H Pulse Oximetry 97 Oxygen Delivery 03/13/23 15:11 03/13/23 15:15 03/13/23 15:31 Temperature Pulse Rate 77 79 72 Respiratory Rate 16 25 H 21 H Blood Pressure Pulse Oximetry Oxygen Delivery 03/13/23 15:41 03/13/23 15:52 03/13/23 16:01 Temperature Pulse Rate 73 79 80 Respiratory Rate 23 H 21 H 17 Blood Pressure 135/104 H 140/84 Pulse Oximetry Oxygen Delivery 03/13/23 16:15 03/13/23 16:38 03/13/23 16:
[2023-03-14] MEDS: diphenhydrAMINE HCl CAP 25 MG CAPSULE 50 MG PO (08:52)
[2023-03-14] MEDS: PROCHLORPERAZINE MALEATE 5 MG TABLET 10 MG PO (08:52)
[2023-03-14] MEDS: LABETALOL HCL 100 MG TABLET 200 MG PO ×2 (08:52→21:18)
[2023-03-14] MEDS: LACTATED RINGERS 1,000 ML 75 ML IV CONT (09:10)
[2023-03-14] MEDS: ACETAMINOPHEN 500 MG TABLET 1000 MG PO ×3 (10:19→22:32)
[2023-03-14] MEDS: ALPRAZolam (*CRX) 0.5 MG TABLET 1 MG PO (10:20)
--- NOTE | 2023-03-14 10:39 | PC.NURSE ---
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 Paper charting reflects bag change, but due to strict I/O orders, day shift RN signed MAR documentation for new bag of magnesium hung before day shift started.
--- NOTE | 2023-03-14 12:00 | PC.NURSE ---
RN at bedside to round on patient. Patient sleeping.
--- NOTE | 2023-03-14 13:03 | PC.NURSE ---
RN at bedside to round on patient. Patient still sleeping.
[2023-03-15] VITALS (11 sets, daily range): BP systolic 110–131; BP diastolic 64–92; PULSE 60–95; RESP 18; TEMP 36.8–36.9; O2SAT 98–99
[2023-03-15 05:31] LABS: Basophils Percent Auto 0.3 % (0.2-1.2); Eosinophils Absolute Auto 0.1 K/mm3 (0-0.3); Eosinophils Percent Auto 1.7 % (0-4.4); Hemoglobin 12.3 g/dL (12.0-15.0); Immature Granulocyte Absolute 0.01 K/mm3 (0.00-0.031); Immature Granulocyte Percent A 0.2 % (0-0.5); Lymphocytes Absolute Auto 2.02 K/mm3 (0.9-3.2); Lymphocytes Percent Auto 34.9 % (18.3-44.2); Mean Corpuscular HGB Conc 32.4 g/dl (32-36); Mean Corpuscular Hemoglobin 28.5 pg (26-34); Mean Platelet Volume 9.6 fl (7.4-10.4); Monocytes Absolute Auto 0.3 K/mm3 (0.1-0.6); Monocytes Percent Auto 5.5 % (2.6-8.5); Neutrophils Absolute Auto 3.3 K/mm3 (1.3-6.7); Neutrophils Percent Auto 57.4 % (45.5-73.1); Platelet Count Result 267 k/mm3 (150-375); Red Blood Count 4.32 M/mm3 (4.2-5.4); Red Cell Distribution Width 12.5 % (11.5-14.5); White Blood Count 5.8 K/mm3 (4.5-10.0)
[2023-03-15 05:41] LABS: Alanine Aminotransferase 61 U/L (6-35); Albumin Level 3.7 g/dL (3.5-5.1); Alkaline Phosphatase 117 U/L (38-126); Anion Gap 8 mmol/L (8-16); Aspartate Amino Transferase 43 U/L (14-36); Bilirubin,Total 0.5 mg/dL (0.2-1.3); Blood Urea Nitrogen 10 mg/dL (7-17); Carbon Dioxide 26 mmol/L (22-30); Chloride 105 mmol/L (98-107); Estimated CRCL calculation 138 ml/min; Estimated Glomerular Filt Rate > 60; Glucose 103 mg/dL (65-110); Potassium 3.8 mmol/L (3.4-5.0); Sodium 139 mmol/L (137-145); Uric Acid 6.4 mg/dL (2.5-7.5)
--- NOTE | 2023-03-15 07:56 | PC.NURSE ---
Pt states she didn't have a headache when she first woke up but as she sat up for awhile can feel her headache coming back.
[2023-03-15] MEDS: ACETAMINOPHEN 500 MG TABLET 1000 MG PO (08:13)
--- NOTE | 2023-03-15 08:38 | PM.OBPNVD ---
OB - PN: Subj Subjective Date/time seen: 03/15/23 08:38 Interval history: blood pressure is stable and controlled in a relatively normal range, headache was relieved with Tylenol, no signs or symptoms of severe preeclampsia, liver enzymes improving. To discharge today. OB - PN: Obj Data Labs 03/15/23 05:24 03/15/23 05:24 Labs: Laboratory Results - last 24 hr 03/14/23 03/14/23 03/15/23 05:11 05:15 05:24 WBC 6.6 5.8 RBC 4.37 4.32 Hgb 12.3 12.3 Hct 38.2 38.0 MCV 87.4 88.0 MCH 28.1 28.5 MCHC 32.2 32.4 RDW 12.1 12.5 Plt Count 274 267 MPV 10.0 9.6 Immature Gran % (Auto) 0.3 0.2 Neut % (Auto) 63.9 57.4 Lymph % (Auto) 28.2 34.9 [place] % (Auto) 5.3 5.5 Eos % (Auto) 1.7 1.7 Baso % (Auto) 0.6 0.3 Lymph # (Auto) 1.85 2.02 [place] # (Auto) 0.4 0.3 Eos # (Auto) 0.1 0.1 Baso # (Auto) 0.0 0.0 Abs Immat Gran (auto) 0.02 0.01 Absolute Neuts (auto) 4.2 3.3 Absolute Nucleated RBC 0.0 0.0 Nucleated RBC % 0.0 0.0 Sodium 140 139 Potassium 4.1 3.8 Chloride 104 105 Carbon Dioxide 28 26 Anion Gap 8 8 BUN 10 10 Creatinine 0.70 0.60 L Estim Creat Clear Calc 120 138 Estimated GFR > 60 > 60 Glucose 103 103 Uric Acid 6.1 6.4 Calcium 7.4 L 8.0 L Total Bilirubin 0.7 0.5 AST 51 H 43 H ALT 65 H 61 H Alkaline Phosphatase 121 117 Total Protein 7.0 7.0 Albumin 3.9 3.7 OB - PN A/P Assessment and Plan (1) Preeclampsia in period: Code(s): O14.95 - Unspecified pre-eclampsia, complicating the puerperium Status: Acute Assessment and Plan: blood pressure is stable and controlled in a relatively normal range, headache was relieved with Tylenol, no signs or symptoms of severe preeclampsia, liver enzymes improving. To discharge today. Time Spent With Patient Time: Total time spent is greater than 50% in coordination of care (as documented) at patient's floor/unit and/or counseling patient: Exam Const: General: cooperative, healthy appearing, comfortable and no acute distress Orientation/consciousness: oriented to person, oriented to place and oriented to time HENMT: Head: normal to inspection Ears: external ears normal Face/Nose/Sinus: Normal external nose present and normal facial exam Face and sinus: normal facial exam Eyes: General: appearance normal, both eyes and all related structures Neck: Neck: normal visual inspection, trachea midline and supple Resp: Auscultation: clear to auscultation bilaterally, no crackles, no rales, no rhonchi and no wheezes Cardio: Rate: regular rate Rhythm: regular rhythm Heart sounds: no click, no murmurs and no rubs GI: GI Palp: No abdominal tenderness, No Soft to palpation, No Tenderness to palpation present (GI) and No Palpable mass present Auscultation: normal bowel sounds Skin: General skin exam: normal color and no rashes or lesions noted Neuro: General: oriented to person, oriented to place and oriented to time Extrem: General: normal to inspection, no joint enlargement, no clubbing, cyanosis or edema, no pedal edema and no calf tenderness Psych: Appearance: grossly normal Mental Status: mental status grossly normal Speech and movement: Normal speech and movement present
[2023-03-15] MEDS: LABETALOL HCL 100 MG TABLET 200 MG PO (08:41)
--- NOTE | 2023-03-15 08:42 | PM.OBDSVD ---
DS: Admitting Diagnosis Discharge Date 03/15/2023 Admitting Diagnosis preeclampsia DS: Discharge Diagnosis Discharge Diagnosis (1) Preeclampsia in period: Code(s): O14.95 - Unspecified pre-eclampsia, complicating the puerperium Status: Acute OB - DS: Summary OB Procedures : None OB Procedures Intrapartum: Spontaneous Vag Delivery OB Procedures: : None Time Spent with Patient Time attestation: Total time spent providing and/or coordinating discharge services: DS: Data Data Completed and Pending Labs on day of discharge: Labs from last 24 hours 03/15/23 03/14/23 05:24 05:11 WBC 5.8 6.6 RBC 4.32 4.37 Hgb 12.3 12.3 Hct 38.0 38.2 MCV 88.0 87.4 MCH 28.5 28.1 MCHC 32.4 32.2 RDW 12.5 12.1 Plt Count 267 274 MPV 9.6 10.0 Immature Gran % (Auto) 0.2 0.3 Neut % (Auto) 57.4 63.9 Lymph % (Auto) 34.9 28.2 [place] % (Auto) 5.5 5.3 Eos % (Auto) 1.7 1.7 Baso % (Auto) 0.3 0.6 Lymph # (Auto) 2.02 1.85 [place] # (Auto) 0.3 0.4 Eos # (Auto) 0.1 0.1 Baso # (Auto) 0.0 0.0 Abs Immat Gran (auto) 0.01 0.02 Absolute Neuts (auto) 3.3 4.2 Absolute Nucleated RBC 0.0 0.0 Nucleated RBC % 0.0 0.0 Sodium 139 Potassium 3.8 Chloride 105 Carbon Dioxide 26 Anion Gap 8 BUN 10 Creatinine 0.60 L Estim Creat Clear Calc 138 Estimated GFR > 60 Glucose 103 Uric Acid 6.4 Calcium 8.0 L Total Bilirubin 0.5 AST 43 H ALT 61 H Alkaline Phosphatase 117 Total Protein 7.0 Albumin 3.7 Discharge Plan Discharge Consulting providers: Jacek Darnell Discharging Clinician: Ling No Patient Disposition: Home, Self-Care Activity: pelvic rest Diet: regular Patient Instructions: Antibiotic Form Stand Alone Forms: General Discharge Information Follow-up/Referrals: Lign No MD [Physician] - Discharge Medications: New labetalol 100 mg Tablet 200 mg PO Q12HR Qty: 60 0RF Continued cholecalciferol (vitamin D3) 1,250 mcg (50,000 unit) capsule 1,250 mcg PO DAILY Vitamin Plus Low Iron 27 mg iron- 1 mg Tablet 1 tablet PO DIRECTED Daily Probiotic 2.5 billion cell Capsule 1 cap PO DAILY Date of admission: 03/14/23 09:58 Primary Care Provider: Ene,[place] Cart[place] Admitting Provider: Ling No Attending physician on admission: Ling No Condition: Stable
== END 2023-03-15 10:28 | disposition home or self-care (01) | DRG 776 ==
LOC: ANHED 15:48 → ANHOBPP 17:59
PROVIDERS: Admitting Provider Obstetrics & Gynecology; Emergency Provider Physician Assistant; PCP Family Medicine; Visit Provider Obstetrics & Gynecology
DX: O14.95 Unspecified pre-eclampsia, complicating the puerperium (principal)
CPT/HCPCS: 36415; 70450; 71045; 80048; 80053; 80076; 81001; 83735; 84100; 84550; 85025; 87086; 96361; 96365; 96366; 96367; 96375; 96376; 99285; A9270; G0378; J0696; J3475; J7030; J7120

== ENCOUNTER → 2023-05-02 09:08 | Outpatient (CLI) | payer OTHER, MEDICAID, SELFPAY ==
--- NOTE | ~2023-05-02 | CT_ITS ---
CT of the Abdomen and Pelvis: Indication: Abdominal pain Technique: 2.5 mm axial scans were obtained through the abdomen and pelvis following intravenous adm inistration of 100 cc of Omnipaque 350. Dose reduction technique was used on this scan by utilizing a utomated exposure control and iterative reconstruction technique. The dose-length product (DLP) was 1 120.54 mGy-cm. Findings: Scans through the lung bases are unremarkable. The liver, spleen, pancreas, adrenals and kidneys are within normal limits. Cholecystectomy clips are present. No evidence of aortic aneurysm. No lymphadenopathy. No bowel obstruction or bowel wall thickening. There is no evidence to suggest acute appendicitis. No subcutaneous mass seen along the section scar region. Images through the pelvis were performed. Urinary bladder is unremarkable. 2.7 cm right adnexal cyst present. No other adnexal mass present. No ascites. Impression: 2.7 cm right adnexal cyst, otherwise unremarkable exam. Reviewed, dictated and finalized at [facility]. Impression: 2.7 cm right adnexal cyst, otherwise unremarkable exam.
== END ==
PROVIDERS: PCP Family Medicine; Visit Provider Obstetrics & Gynecology
DX: R19.09 Other intra-abdominal and pelvic swelling, mass and lump (principal); R10.9 Unspecified abdominal pain
CPT/HCPCS: 74177; Q9967

== ENCOUNTER 2024-12-21 00:27 | Day surgery (SDC) | payer OTHER, MEDICAID, SELFPAY ==
[2024-12-20 09:47] VITALS: BMI 45.8
--- NOTE | 2024-12-20 09:48 | PC.NURSE ---
Report to the Outpatient Waiting Room, entrance under the green pavilion located off [facility], at time _0630_ on date _[id number]_. Planned Procedure Time: _0830_.? Time changes happen often and if your time is changed the preop area will call you the afternoon before. - You and your visitor will be asked to self-screen and do not enter if you have any COVID symptoms. Please call surgeon if you need to reschedule. - A mask is optional within the hospital at this time. Patients may have clear liquids (water, carbonated beverages, clear teas, apple juice) until 3 hours prior to surgery with a maximum of 20 ounces. - No food from midnight until time of surgery and no smoking, or chewing tobacco (or any form of nicotine). No chewing gum, candy or mints. Take only the following medications with a SIP of water on the morning of surgery: ___Acetaminophen if needed.__ DO NOT STOP ANY OF YOUR OTHER PRESCRIPTION MEDICATIONS PRIOR TO SURGERY EXCEPT THE FOLLOWING Hold all vitamins and supplements for 3 days per anesthesiologist. Medications to discontinue per physician ___Patient held Vitamin D3 this week and held Mounjaro this past friday.___ Date to take last dose Please no make-up, nail turkmen, hairspray, perfume, deodorant, or body powder the day of surgery.? No jewelry (including any body piercings) or valuables the day of surgery, leave them at home.? Please take a shower or bath the night before, or the morning of, surgery with an antibacterial soap.? Wear comfortable, loose fitting clothing. - Jewelry must be removed prior to entering the operating room.? Rings and piercings that are not removed may be cut off. - The hospital will not accept responsibility for valuables.? - Please leave all valuables, including medications, at home the day of surgery. If you are going home after surgery, a licensed taxi driver supervisor must drive you home.? - NO public transportation without another adult if you receive anesthesia. - We recommend that an adult stay with you for 24 hours following discharge. - We also recommend that you do not drive, make important decision, drink alcoholic beverages, or take any drugs that were not prescribed by your health care provider for at least 24 hours after your discharge time. Follow any additional instructions given to you from your surgeon. Telephone instructions given to __Violet__and asked if any additional questions and then verbalized understanding. Patient advised to call surgeon office or pre surgery nurse liaison [phone] if any additional questions.
[2024-12-21] VITALS (8 sets, daily range): BP systolic 90–127; BP diastolic 47–80; PULSE 56–84; RESP 16–19; TEMP 36.2–36.9; O2SAT 98–100
--- OUTSIDE RECORDS SUMMARY | 2024-12-21 00:34 | XMS_ITS | Referral Summary ---
Author Organization [facility] Address [address] [place] [id number] Care Team Providers Care Patient Transporter Name Role Phone Los Luque MD Primary Care Provider [phone] Tucker Esquivel MD, Baldomero Malik Unavailable [phone] Encounters Date Type Department Care Team Description 12/15/2024 7:30 AM CDT Office Visit [facility] [address] [phone] Addis Reddy NP Vitamin D deficiency (Primary Dx); Hypertension, essential; Lipid screening; Intractable migraine without aura and without status migrainosus; Sensation of fullness in both ears; Class 3 severe obesity due to excess calories with serious comorbidity and body mass index (BMI) of 45.0 to 49.9 in adult (HCC) 12/10/2024 8:20 AM CDT Lab [facility] [address] [place] [phone] Vitamin D deficiency; Hypertension, essential; Lipid screening 12/08/2024 Telephone [facility] [address] [phone] Rachelle Hemphill MA Labs Requested for Appointment 12/01/2024 2:15 PM CDT Office Visit [facility] Sleep Medicine at [address] [place] [address] Libertad Cruz MD Obstructive sleep apnea syndrome (Primary Dx); Obesity, unspecified class, unspecified obesity type, unspecified whether serious comorbidity present 11/17/2024 2:45 PM CDT Office Visit [facility] Medical [facility] at [address] [place] [address] Nida Marlow NP Non-recurrent acute suppurative otitis media of right ear without spontaneous rupture of tympanic membrane (Primary Dx) 11/02/2024 Documentation [facility] [address] [place], [place] [phone] Misti Bassett LCSW 11/02/2024 11:00 AM CDT Office Visit [facility] [address] [phone] Renata Madison NP Migraine without aura and without status migrainosus, not intractable (Primary Dx); Non-recurrent acute serous otitis media of left ear; Class 3 severe obesity due to excess calories with serious comorbidity and body mass index (BMI) of 45.0 to 49.9 in adult (HCC) 11/01/2024 Nurse Triage [facility] [address] [phone] Los Luque MD 10/27/2024 3:00 PM WALLPAPER INSTALLER - 10/27/2024 11:59 PM WALLPAPER INSTALLER Hospital Encounter [facility] [address] [place] [address] Obstructive sleep apnea syndrome Discharge Disposition: Discharge to home or self care 10/19/2024 9:30 AM WALLPAPER INSTALLER Office Visit [facility] Medical [facility] Care at [address] [place] [phone] Dian Sosa NP Acute maxillary sinusitis, recurrence not specified (Primary Dx); Other migraine without status migrainosus, intractable; Elevated blood pressure reading from Last 3 Months Allergies Active Allergy Reactions Criticality Noted Date Comments Amoxicillin Rash Reaction: Rash, Doxycycline Rash,Hives,Swelling ,Urticaria High 07/15/2018 Reaction: Rash, Hydrocodone Anaphylaxis,Hives,U rticaria High 05/01/2021 Reaction: ANAPHYLAXIS, Hydrocodone-Acetaminophen Swelling,Rash Medium 015 Vicodin Pt reports that she is only allergic to hydrocodone. Pt is able to take acetaminophen. Lisinopril Cough Low 10/24/2023 Nitrofurantoin Hives Medium Reaction: Pruritic rash, , Reaction: Pruritic rash, Nitrofurantoin Monohyd/M-Cryst Hives High 06/27/2020 Penicillins Anaphylaxis,Hives,S hortness of breath,Itching,Rash High Reaction: Anaphylaxis, Pheniramine Other (See comments) Low 10/20/2023 Elevated BP Tacrolimus Rash Medium 05/08/2024 Skin burning Medications etonogestreL (Nexplanon) 68 mg implant Inject by subcutaneous route. Active ergocalciferol (VITAMIN D) 50,000 unit capsule Take 1 capsule (50,000 Units total) by mouth once a week 12 capsule 2 04/06/20 24 2024 Active tirzepatide (Mounjaro) 5 mg/0.5 mL pen injector injection Inject 0.5 mL (5 mg total) under the skin every 7 days 2 mL 5 11/03/19 25 Active amitriptyline (ELAVIL) 25 mg tabletIndicati ons:Migraine without aura and without status migrainosus, not intractable Take 1 tablet (25 mg total) by mouth nightly 90 tablet 4 11/10/19 25 2025 Active Additional Information Patient not taking.Reported on 12/15/2024 rimegepant (NURTEC ODT) tablet,disinte gratingIndicat ions:Migraine Place 1 tablet (75 mg total) under the tongue daily as needed (headache) 8 tablet 12/11/19 25 Active rimegepant (NURTEC ODT) tablet,disinte gratingIndicat ions:Migraine Place 1 tablet (75 mg total) under the tongue daily as needed (headache) 8 tablet 11/03/19 25 2024 Discontinued(R eorder) meclizine (ANTIVERT) 12.5 mg tabletIndicati ons:Migraine without aura and without status migrainosus, not intractable Take 1 tablet (12.5 mg total) by mouth 3 (three) times a day as needed for dizziness 90 tablet 4 11/10/19 25 2024 Discontinued methylPREDNISo lone (MEDROL DOSEPACK) 4 mg DosepackIndica tions:Non-recu rrent acute suppurative otitis media of right ear without spontaneous rupture of tympanic membrane Take as directed on package. 21 tablet 11/18/19 25 2024 cefdinir (OMNICEF) 300 mg capsuleIndicat ions:Non-recur rent acute suppurative otitis media of right ear without spontaneous rupture of tympanic membrane Take 1 capsule (300 mg total) by mouth 2 (two) times a day for 7 days 14 capsule 11/18/19 25 2024 Active Problems Problem Noted Date Diagnosed Date Lipid screening 12/15/2024 Assessment & Plan (12/15/2024 7:47 AM CDT): Lipid panel reviewed. Reviewed lifestyle recommendations. Will continue to monitor. Non-recurrent acute serous otitis media of left ear 11/02/2024 Assessment & Plan (11/02/2024 2:08 PM CDT): Azithromycin given will see if this helps with dizziness. Will continue to monitor. Orders: azithromycin (ZITHROMAX) 250 mg tablet; Take 2 tabs (500 mg) by mouth today, than 1 tab (250 mg) daily for 4 days. Acute sinusitis 07/09/2024 Assessment & Plan (07/09/2024 12:56 PM WALLPAPER INSTALLER): No improvement with cefdinir. Prescribed a course of Levaquin instructed patient continue sinus rinses as well as Flonase nasal spray. Discussed concerns for GI upset or secondary infection such as diff with additional course of antibiotics and recommended patient take a probiotic while eating yogurt etc.. Be sure to take medication with food. Follow up if no improvement. Acute suppurative otitis med ia of left ear without spontaneous rupture of tympanic membrane 07/09/2024 Assessment & Plan (07/09/2024 12:56 PM WALLPAPER INSTALLER): See discussion above. Insulin resistance 04/06/2024 Assessment & Plan (08/10/2024 11:16 AM WALLPAPER INSTALLER): Chronic problem. She did very well with Mounjaro 2.5 mg, side effects when increasing to 5 mg. Recommended she stop it completely for a couple weeks, use PPI for any residual GI symptoms, then retry again at 2.5 mg dose and let us know if any issues. Assessment & Plan (04/06/2024 12:59 PM CDT): Encouraged the patient to start 30 minutes daily walks Work on a small portions, trying to avoid processed food and carb rich meals. Try to concentrate on vegetables and lean protein Will start GLP 1 with Ozempic 1st sample was provided and prescription was sent to the pharmacy Tear of right glenoid labrum 03/08/2024 Assessment & Plan (03/08/2024 8:15 AM CDT): No contraindication to upcoming surgery. Dizziness 03/02/2024 Assessment & Plan (03/08/2024 8:15 AM CDT): Improving; encouraged continued close monitoring. Discussed dizziness possibly as a result of postop state and new medication. Reviewed ER work up, no acute findings. Dizziness has improved some, encouraged continued hydration and close monitoring. Myalgia 01/22/2024 Spondylosis of cervical joint without myelopathy 01/22/2024 Musculoskeletal disorder and symptoms referable to neck 01/22/2024 Cervicalgia 01/02/2024 Assessment & Plan (01/02/2024 1:57 PM CDT): Reviewed MRI report, see scanned media. Patient is following with orthopedic/spine recommended further evaluation with pain management. She has had difficulty scheduling this appointment. She updated referral today. She continues to benefit therapy as well, updated referral to PT. Continue meloxicam and methocarbamol Cubital tunnel syndrome on right 01/02/2024 Assessment & Plan (01/02/2024 1:57 PM CDT): Working with OT and Orthopedic surgeon, Dr. Camacho Fatigue 12/16/2023 Assessment & Plan (12/16/2023 5:40 PM CDT): Discussed differential diagnoses and multiple factors influencing fatigue including anemia, endocrinopathies, vitamin deficiencies, hormonal imbalance, inadequate sleep, poor diet, and lack of exercise. Encouraged healthy eating and regular physical activity. Reviewed sleep hygiene. Will continue to monitor. Adjustment reaction with anxiety and depression 12/16/2023 Assessment & Plan (12/16/2023 5:41 PM CDT): Patient reports feeling frequently overwhelmed. Reviewed pharmacologic treatment options for management of moods including SSRI/SNRIs, and non-benzodiazepine anxiolytics. Will start prescription bupropion 150 mg daily. Reviewed medication and adverse effects. Encouraged patient to engage with counseling. Recommend healthy eating and regular exercise. Seek immediate medical attention if experiencing SI/HI. Will continue to monitor. Follow-up in 4 months. Class 3 severe obesity due t o excess calories with serious comorbidity and body mass index (BMI) of 45.0 to 49.9 in adult 12/16/2023 Assessment & Plan (12/15/2024 8:39 AM CDT): Continue excellent work with weight loss! Assessment & Plan (11/02/2024 2:08 PM CDT): Encouraged heart healthy diet and lifestyle. Advised 150 min/week of aerobic exercise. Assessment & Plan (08/10/2024 11:16 AM WALLPAPER INSTALLER): Continue working on healthy diet and exercise, adjust Mounjaro as tolerated. Assessment & Plan (06/10/2024 6:21 PM CDT): Working towards increasing exercise. Patient congratulated on avoiding soda. Assessment & Plan (04/06/2024 1:00 PM CDT): Diet and exercise I explained to the patient how she has a indication for bariatric surgery. This is a consideration for the near future Assessment & Plan (03/08/2024 8:16 AM CDT): Continue working towards weight loss. Discussed healthy diet and importance of regular physical activity. Assessment & Plan (12/16/2023 5:45 PM CDT): Encouraged patient to follow diet higher in protein and lower carb. Recommended several small meals frequently throughout the day. No contraindications to treatment with GLP 1, patient has tried and failed several prescription medications for weight loss. Unable to tolerate phentermine secondary to increased blood pressure and anxiety. Prescribed semaglutide 0.25 mg weekly injection today and will monitor response. Hypertension, essential 10/24/2023 Assessment & Plan (12/15/2024 7:49 AM CDT): Well controlled with lifestyle. Assessment & Plan (06/10/2024 6:20 PM CDT): Pressure today is well controlled, controlled with diet. Assessment & Plan (03/08/2024 8:12 AM CDT): Reviewed cardiac workup and cardiology note. Patient is holding Losartan, blood pressure today 114/72. Continue to hold losartan, periodically check blood pressure at home. Assessment & Plan (10/24/2023 12:17 PM WALLPAPER INSTALLER): Started on lisinopril July, reports she has had a dry cough since then. Will discontinue lisinopril and start losartan 25 mg daily. Encouraged patient to continue checking blood pressure periodically at home she will notify office for readings consistently greater than 130 systolic. Muscle strain 10/24/2023 Assessment & Plan (10/24/2023 12:19 PM WALLPAPER INSTALLER): Continue tramadol. Instructed patient to continue ibuprofen 800 mg 3 times daily with meals. Continue Flexeril. Explained to patient that she will likely feel soreness for the next 2 weeks or so. Continues alternating ice and heat. Discussed the importance of continued movement such as walking and gentle stretching/range of motion. Reviewed red flags warranting immediate evaluation. Intertrigo 10/24/2023 Assessment & Plan (10/24/2023 12:20 PM WALLPAPER INSTALLER): Discontinue nystatin. Recommended use of ketoconazole shampoo such as Selsun blue to affected areas a few times per week. Thoroughly dry skin after bathing. Apply clotrimazole cream twice daily, this can be purchased [id number]. Follow- up if no improvement. Upper respiratory tract infection 10/24/2023 Assessment & Plan (10/24/2023 12:27 PM WALLPAPER INSTALLER): Patient with nasal congestion and sinus pressure present for a little over 1 week. Given multiple allergies to antibiotics, prescribed azithromycin. Also prescribed prednisone taper for sinus pressure/headache as well as muscle strain. Encouraged continued symptomatic treatment and pushing fluids. Patient to follow-up if no improvement in the next 1-2 weeks. Patient to follow-up sooner if experiencing any new or worsening symptoms. Dermatitis 08/05/2023 Assessment & Plan (08/05/2023 1:33 PM WALLPAPER INSTALLER): Recommend OTC hydrocortisone to area. Will also place referral to floor hand for testing. Family history of early CAD 08/05/2023 Assessment & Plan (08/05/2023 1:33 PM WALLPAPER INSTALLER): Start lisinopril. Lipid panel ordered. Will also place referral to Cardiology as dad had 1st CO in his 30s. 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 Encouraged to take with high fat food. Will continue to follow. Assessment & Plan (08/10/2024 11:15 AM WALLPAPER INSTALLER): Continue 50k weekly. Assessment & Plan (06/10/2024 6:20 PM CDT): Vitamin-D = 27 despite weekly vitamin-D supplementation. Assessment & Plan (04/06/2024 12:59 PM CDT): Chronic, uncontrolled Restart ergocalciferol 50 K once a week Assessment & Plan (12/16/2023 5:40 PM CDT): Taking 10,000 international units daily since 07/2023 Will check labs today plan for referral if no improvement. Assessment & Plan (08/05/2023 1:32 PM WALLPAPER INSTALLER): Not currently taking supplement. Will check vitamin-D level and plan accordingly. Cystic fibrosis 08/04/2023 Overview (08/04/2023): Carrier - FOB - neg. Physical exam, annual 03/21/2023 Assessment & Plan (06/10/2024 6:21 PM CDT): Preventive exam; reviewed recommended preventive screenings and vaccinations. Encourage annual flu vaccine. Wear sunscreen/protective clothing when outdoors. -scheduled with paper winder later this week Assessment & Plan (03/21/2023 9:47 AM CDT): Preventive exam; reviewed recommended preventive screenings and vaccinations. Encourage annual flu vaccine. Wear sunscreen/protective clothing when outdoors. hypertension 03/21/2023 Assessment & Plan (08/05/2023 1:32 PM WALLPAPER INSTALLER): Will start lisinopril. Reviewed lifestyle recommendations as well. Labs ordered. Will continue to monitor. Red flags reviewed. Assessment & Plan (03/21/2023 9:47 AM CDT): Reviewed hospitalization records and labs. Blood pressure is well controlled with current regimen, labetalol 200 mg t.i.d.. Patient is following with paper winder now, Dr. Sugar purvis. LFTs trending down and hospital discharge, plan to repeat labs in 2 weeks. Follow up with paper winder scheduled 04/01/2023. Patient continues to have mild nausea with dull headache, prescribed Zofran p.r.n. scheduled for follow-up with Neurology 05/13/2023 Mixed hyperlipidemia 03/21/2023 Assessment & Plan (08/04/2023 3:42 PM WALLPAPER INSTALLER): Most recent lipid panel reviewed. Continue to work on diet exercise. Will recheck prior to next appointment. Assessment & Plan (03/21/2023 9:45 AM CDT): Reviewed cholesterol with patient, LDL =140. Discussed diet and exercise recommendations. Will continue to monitor, plan to repeat labs in about 6 months. Cystic fibrosis gene carrier 06/04/2022 Patent ductus arteriosus 06/04/2022 Obstructive sleep apnea syndrome 04/17/2022 Assessment & Plan (06/10/2024 6:19 PM CDT): Again discussed concerns sleep apnea, discussed concerns that untreated sleep apnea is contributing to obesity, cardiomegaly and fatigue. Patient is agreeable to referral to sleep med, referral placed today. Assessment & Plan (12/16/2023 5:43 PM CDT): Discussed concerns for untreated sleep apnea with weight gain. Recommended repeat sleep study, deferred for now. Cholelithiasis affecting pre gnancy in third trimester, antepartum 04/17/2022 Acute intractable tension-type headache 03/29/20 Assessment & Plan (11/02/2024 2:08 PM CDT): Will restart Amitriptyline and start Nurtec to see if that will help with migraines. Discussed red flags. Will continue to monitor. Orders: amitriptyline (ELAVIL) 10 mg tablet; Take 1 tablet (10 mg total) by mouth nightly rimegepant (NURTEC ODT) tablet,disintegrating; Place 1 tablet (75 mg total) under the tongue daily as needed (headache) Biliary colic 04/27/2021 Overview (08/04/2023): Added automatically from request for surgery [id number] Added automatically from request for surgery [id number] Gestational diabetes mellitus, class A2 03/12/20 Overview (08/04/2023): 30 - 32u NPH @ HS. h/o GDMa2. testing 01/21 - 32u NPH @ HS. h/o GDMa2. testing Acute hemorrhagic cystitis 11/14/2016 Overview (01/17/2017): Acute cystitis with hematuria Fluid level behind tympanic membrane 11/14/2016 Overview (01/17/2017): Middle ear effusion, bilateral Bronchitis 11/14/2016 Overview (01/17/2017): Bronchitis Bilateral low back pain 07/12/2015 Nocturia 07/12/2015 Migraine without aura 07/12/2015 Overview (08/04/2023): Note: Unchanged Assessment & Plan (12/15/2024 8:37 AM CDT): Reviewed lifestyle recommendations. Continue Nurtec p.r.n.. Will refer to neurologist for further management. Resolved Problems Problem Noted Date Diagnosed Date Resolved Date At risk for alteration in status 08/05/2023 08/05/2023 Overview (08/05/2023): History. Delivered at 39 - induction. Pre-eclampsia, severe, with delivery 04/09/2021 08/04/2023 Class 3 severe obesity due t o excess calories with serious comorbidity and body mass index (BMI) of 45.0 to 49.9 in adult 06/27/2020 4 History of urinary tract infection 07/12/2015 08/04/2023 Increased frequency of urination 07/12/2015 08/04/2023 Immunizations Immunization Administration Dates Next Due DTaP 04/05/2009, 3,04/05/1999,05/03,02/28/1998,1997 HPV, Quadrivalent 03/03/2013,07/06/2012,05/04/20 12 HPV, Unspecified 05/04/2012 Hep B Vaccine 05/03/1998,1997,1997 Hep B, Adolescent or Pediatric 8,1997,1997,10/04 HiB 04/05/1999, 8,02/28/1998,12/08 Hib (PRP-OMP) 04/05/1999, 8,02/28/1998,12/08 IPV 12/27/2002, 8,02/28/1998,12/08 Influenza, Quadrivalent, Spl it, Preservative Free, Intramuscular 06/16/2020,09/17/2016,05/12/2015 Influenza, Trivalent, Preser vative Free, Intramuscular 06/10/2024,05/11/2015 Influenza, Unspecified 03/08/2024(Deferr ed: Patient Refused),01/02/2024(Deferred: Patient Refused),12/05/2023(Deferred: Patient Refused),10/24/2023(Deferred: Patient Refused),05/25/2023(Deferred: Patient Refused),05/25/2023(Deferred: Patient Refused),05/25/2023(Deferred: Patient Refused),04/25/2023(Deferred: Patient Refused),06/08/2022,05/25/2022(Deferre d: Patient Refused),06/25/2021 MMR 12/27/2002,04/05/1999 Meningococcal C Conjugate 04/05/2009 Meningococcal MCV4P (Menactra) 06/12/2015,2008 Tdap 01/29/2023, 1,09/17/2016,04/05 Varicella 05/04/2012,12/27/2002 Social History Tobacco Use Types Packs/Day Years Used Date Smoking Tobacco: Never Smokeless Tobacco: Never Tobacco Cessation:Counseling Given: Not Answered Alcohol Use Standard Drinks/Week Comments No 0 (1 standard drink = 0.6 oz pur e alcohol) [facility] Utilities Answer Date Recorded In the past 12 months has th e electric, gas, oil, or water company threatened to shut off services in your home? No 11/02/2024 Humiliation, Afraid, Rape, and Kick questionnair e Answer Date Recorded Within the last year, have y ou been afraid of your partner or ex-partner? No 11/02/2024 Within the last year, have y ou been humiliated or emotionally abused in other ways by your partner or ex-partner? No Within the last year, have y ou been kicked, hit, slapped, or otherwise physically hurt by your partner or ex-partner? No 11/02/2024 Within the last year, have y ou been raped or forced to have any kind of sexual activity by your partner or ex-partner? No 11/02/2024 Social Connection and Isolat ion Panel [NHANES] Answer Date Recorded In a typical week, how many times do you talk on the phone with family, friends, or neighbors? More than three times a week 11/02/2024 How often do you get togethe r with friends or relatives? More than three times a week 11/02/2024 How often do you attend chur or protestant services? Never 11/02/2024 Do you belong to any clubs o r organizations such as christianity groups, unions, fraternal or athletic groups, or school groups? Yes 11/02/2024 How often do you attend meet ings of the clubs or organizations you belong to? More than 4 times per year 11/02/2024 Are you , , di vorced, , never , or living with a partner? 11/02/2024 AUDIT-C Answer Date Recorded Q1: How often do you have a drink containing alc ohol? Monthly or less 11/02/2024 Q2: How many drinks containi ng alcohol do you have on a typical day when you are drinking? 1 or 2 11/02/2024 Q3: How often do you have si x or more drinks on one occasion? Never 11/02/2024 Overall Financial Resource Strain (CARDIA) Answe r Date Recorded How hard is it for you to pa y for the very basics like food, housing, medical care, and heating? Not hard at all 11/02/2024 PHQ-2 Answer Date Recorded PHQ-2 Total Score (If total score is 3 or more points, staff should administer the PHQ-9) 0 11/02/2024 [facility] - Occupational Stress Questionnaire Answer Date Recorded Do you feel stress - tense, restless, nervous, or anxious, or unable to sleep at night because your mind is troubled all the time - these days? To some extent 11/02/2024 Exercise Vital Sign Answer Date Recorde d On average, how many days pe r week do you engage in moderate to strenuous exercise (like a brisk walk)? 7 days 11/02/2024 On average, how many minutes do you engage in exercise at this level? 30 min 11/02/2024 Hunger Vital Sign Answer Date Recorded Within the past 12 months, y ou worried that your food would run out before you got the money to buy more. Never true 11/03/19 25 Within the past 12 months, t he food you bought just didn't last and you didn't have money to get more. Never true 11/02/2024 PRAPARE - Transportation Answer Date Re corded In the past 12 months, has l ack of transportation kept you from medical appointments or from getting medications? No 10/23 In the past 12 months, has l ack of transportation kept you from meetings, work, or from getting things needed for daily living? No 11/02/2024 PHQ-9 Answer Date Recorded PHQ-9 Total Score 0 11/02/2024 Housing Stability Vital Sign Answer Sunny e Recorded In the last 12 months, was t here a time when you were not able to pay the mortgage or rent on time? No 11/02/2024 In the past 12 months, how m any times have you moved where you were living? 0 11/02/2024 At any time in the past 12 m [facility], were you homeless or living in a custodial (including now)? No 11/02/2024 Personal Safety Answer Date Recorded Have you ever been in or are you currently in a harmful physical or emotional relationship or is someone making you feel afraid or unsafe? Denies 08/03/2024 Comments No Sex and Gender Information Value Date Recorded Sex Assigned at Not on file Legal Sex Female 6:37 PM CDT Gender Identity Not on file Sexual Orientation Straight 04/06/2024 9: 59 AM CDT Last Filed Vital Signs Vital Sign Reading Time Taken Comments Blood Pressure 102/74 12/15/2024 7:31 AM CDT Pulse 89 12/15/2024 7:31 AM CDT Temperature 36.6 C (97.9 F) 12/15/2024 7:31 AM CDT Respiratory Rate 18 12/15/2024 7:31 AM CDT Oxygen Saturation 99% 12/15/2024 7:31 AM CDT Inhaled Oxygen Concentration - - Weight 112.6 kg (248 lb 3.2 oz) 12/15/2024 7:31 AM CDT Height 157.5 cm (5' 2.01 ) 12/15/2024 7:31 AM CD T Body Mass Index 45.38 12/15/2024 7:31 AM CDT Plan of Treatment Not on file Procedures Procedure Name Priority Date/Time Associated Diagnosis Comments EGFR Routine 12/10/2024 8:36 AM CDT Hypertension, essential Lipid screening DIFFERENTIAL AUTO Routine 12/10/2024 8:3 6 AM CDT Hypertension, essential Lipid screening CBC WITH AUTO DIFFERENTIAL Routine 12/10/2024 8:36 AM CDT Hypertension, essential Lipid screening COMPREHENSIVE METABOLIC PANEL Routine 12/10/2024 8:36 AM CDT Hypertension, essential Lipid screening LIPID PANEL Routine 12/10/2024 8:36 AM CDT Hypertension, essential Lipid screening VITAMIN D 25 HYDROXY Routine 12/10/2024 8:36 AM CDT Vitamin D deficiency PORTABLE/HOME SLEEP STUDY Routine 11/01/2024 Obstructive sleep apnea syndrome POC INFLUENZA A/B, COVID-19 ANTIGEN Routine 10/19/2024 9:54 AM WALLPAPER INSTALLER Acute maxillary sinusitis, recurrence not specified from Last 3 Months Results * eGFR (12/10/2024 8:36 AM CDT) eGFR >90 >=60 mL/min/1. 73 m2 Comment: Interpretive Data Reference Interval Normal >/= 90 mL/min/1.73m2 Mildly decreased* 60 - 89 mL/min/1.73m2 Mildly to moderately decreased 45 - 59 mL/min/1.73m2 Moderately to severely decreased 30 - 44 mL/min/1.73m2 Severely decreased 15 - 29 mL/min/1.73m2 Kidney Failure < 15 mL/min/1.73m2 *Relative to young adult level Estimated glomerular filtration rate is determined by the 2020 CKD-EPI equation recommended by the National Kidney Foundation (A Unifying Approach to GFR Estimation: Recommendations of the NKF-ASK Task Force on Reassessing the Inclusion of Race in Diagnosing Kidney Disease, JASN 2020). The CKD-EPI equation should not be used for patients with unstable renal function and has not been validated in children and those over 70. Current interpretive data was last reviewed 2021. Testing performed by: [address] [address] Blood 12/10/2024 8:36 AM CDT 12/10/2024 2:55 PM CDT us Addis Reddy NP LAB BLOOD ORDERABLES Final Result [facility] ([place]) 1 [facility] [place] [address] * Differential, auto (12/10/2024 8:36 AM CDT) Neutrophil abs 4.63 1.50 - 6.50 K/cumm Comment:Testing performed by : [facility], [address] [place] [address]., [address] Imm gran abs 0.02 0.00 - 0.10 K/cumm [facility] ([place]) Comment:Testing performed by : [facility], [address] [place] [address]., [address] Lymphocyte abs 1.66 0.80 - 3.30 K/cumm [facility] ([place]) Comment:Testing performed by : [facility], [address] [place] [address]., [address] Monocyte abs 0.42 0.20 - 0.80 K/cumm [facility] ([place]) Comment:Testing performed by : [facility], [address] [place] [address]., [address] Eosinophil abs 0.03 0.00 - 0.50 K/cumm [facility] ([place]) Comment:Testing performed by : [facility], [address] [place] [address]., [address] Basophil abs 0.04 0.00 - 0.10 K/cumm [facility] ([place]) Comment:Testing performed by : [address] [address] Neutrophil pct 68.1 % [facility] ([place]) Comment: Interpretive Data Percent cell count reference ranges are not reported, since discordance with absolute values may lead to misinterpretation of CBC data. Current Interpretive Data was last revised on 2017. Testing performed by: [facility], [address] [place] [address]., [address] Imm gran pct 0.3 % [facility] ([place]) Comment: Interpretive Data Percent cell count reference ranges are not reported, since discordance with absolute values may lead to misinterpretation of CBC data. Current Interpretive Data was last revised on 2017. Testing performed by: [address] [address] Lymphocyte pct 24.4 % [facility] ([place]) Comment: Interpretive Data Percent cell count reference ranges are not reported, since discordance with absolute values may lead to misinterpretation of CBC data. Current Interpretive Data was last revised on 2017. Testing performed by: [address] [address] Monocyte pct 6.2 % [facility] ([place]) Comment: Interpretive Data Percent cell count reference ranges are not reported, since discordance with absolute values may lead to misinterpretation of CBC data. Current Interpretive Data was last revised on 2017. Testing performed by: [address] [address] Eosinophil pct 0.4 % [facility] ([place]) Comment: Interpretive Data Percent cell count reference ranges are not reported, since discordance with absolute values may lead to misinterpretation of CBC data. Current Interpretive Data was last revised on 2017. Testing performed by: [address] [address] Basophil pct 0.6 % [facility] ([place]) Comment: Interpretive Data Percent cell count reference ranges are not reported, since discordance with absolute values may lead to misinterpretation of CBC data. Current Interpretive Data was last revised on 2017. Testing performed by: [address], [address] Blood 12/10/2024 8:36 AM CDT 12/10/2024 2:50 PM CDT Addis Reddy NP LAB BLOOD ORDERABLES Final Result [facility] ([place]) 1 [facility] Department [place] [address] * CBC with auto differential (12/10/2024 8:36 AM CDT) WBC 6.80 3.80 - 9.90 K/cumm Comment:Testing performed by : [address], [address] Hgb 13.4 11.9 - 15.5 g/dL [facility] ([place]) Comment:Testing performed by : [address], [address] Hct 41.0 35.6 - 45.5 % [facility] ([place]) Comment:Testing performed by : [address] [address] Plt 279 150 - 400 K/cumm [facility] ([place]) Comment:Testing performed by : [address], [address] MPV 10.8 9.1 - 12.3 fL [facility] ([place]) Comment:Testing performed by : [address], [address] RBC 4.58 3.90 - 5.20 M/cumm [facility] ([place]) Comment:Testing performed by : [facility], [address] [place] [address], [address] MCV 89.5 81.3 - 96.4 fL [facility] ([place]) Comment:Testing performed by : [facility], [address] [place] [address], [address] MCH 29.3 27.1 - 33.3 pg [facility] ([place]) Comment:Testing performed by : [facility], [address] [place] [address], [address] MCHC 32.7 32.3 - 35.7 g/dL [facility] ([place]) Comment:Testing performed by : [facility], [address] [place] [address], [address] RDW CV 12.6 11.1 - 14.9 % [facility] ([place]) Comment:Testing performed by : [facility], [address] [place] [address], [address] RDW SD 41.3 35.7 - 48.1 fL [facility] ([place]) Comment:Testing performed by : [facility], [address] [place] [address], [address] NRBC abs 0.00 0.00 - 0.01 K/cumm [facility] ([place]) Comment:Testing performed by : [address], [address] Blood 12/10/2024 8:36 AM CDT 12/10/2024 2:50 PM CDT Addis Reddy NP LAB BLOOD ORDERABLES Final Result [facility] ([place]) 1 [facility] Department [place] [address] * (ABNORMAL) Vitamin D 25 hydroxy (12/10/2024 8:36 AM CDT) Vitamin D 25-OH 16(L) 30 - 80 ng/mL Comment:Testing performed by : [address], [address] Blood 12/10/2024 8:36 AM CDT 12/10/2024 2:50 PM CDT us Addis Reddy NP LAB BLOOD ORDERABLES Final Result [facility] ([place]) 1 [facility] Department [place] [address] * (ABNORMAL) Lipid panel (12/10/2024 8:36 AM CDT) Cholesterol 149 30 - 199 mg/dL Comment: Interpretive Data Ages < or = 19 years Acceptable: <170 mg/dL Borderline high: 170-199 mg/dL High: >or= 200 mg/dL Ages > or = 20 years Desirable: <200 mg/dL Borderline high: 200-239 mg/dL High: >or= 240 mg/dL Literature References: 1. Expert Panel on Integrated Guidelines for Cardiovascular Health and Risk Reduction in Children and Adolescents. Pediatrics 2011;128:S213 2. NCEP Expert Panel. Circulation 2004;110:227 Current Interpretive Data was last revised on 2018. Testing performed by: [address] [address] Triglycerides 63 <=149 mg/dL [facility] ([place]) Comment: Interpretive Data Ages < or = 9 years Acceptable: <75 mg/dL Borderline high: 75-99 mg/dL High: >or= 100 mg/dL Ages 10 to 20 years Acceptable: <90 mg/dL Borderline high: 90-129 mg/dL High: >or= 130 mg/dL Ages > or = 20 years Desirable: <150 mg/dL Borderline high: 150-199 mg/dL High: 200-499 mg/dL Very high: >or= 499 mg/dL Literature References: 1. Expert Panel on Integrated Guidelines for Cardiovascular Health and Risk Reduction in Children and Adolescents. Pediatrics 2011;128:S213 2. NCEP Expert Panel. Circulation 2004;110:227 Current Interpretive Data was last revised on 2018. Testing performed by: [address] [address] HDL 39(L) >=40 mg/dL HAR[facility]AD [facility] ([place]) Comment: Interpretive Data Ages < or = 19 years Acceptable: >45 mg/dL Borderline low: 40-45 mg/dL Low: <40 mg/dL Ages > or = 20 years Desirable: >or= 60 mg/dL Low: <40 mg/dL Literature References: 1. Expert Panel on Integrated Guidelines for Cardiovascular Health and Risk Reduction in Children and Adolescents. Pediatrics 2011;128:S213 2. NCEP Expert Panel. Circulation 2004;110:227 Current Interpretive Data was last revised on 2018. Testing performed by: [facility], [address] [place] [address]., [address] LDL, calculated 97 <=129 mg/dL [facility] ([place]) Comment: Interpretive Data Ages < or = 19 years Acceptable: <110 mg/dL Borderline high: 110-129 mg/dL High: >or= 130 mg/dL Ages > or = 20 years Optimal: <100 mg/dL Near optimal: 100-129 mg/dL Borderline high: 130-159 mg/dL High: >160 mg/dL Calculated using the Mandeep LDL-C estimating equation. This equation was implemented on 2024. Prior to this date LDL-C was estimated using the Friedewald equation. Literature References: 1. Expert Panel on Integrated Guidelines for Cardiovascular Health and Risk Reduction in Children and Adolescents. Pediatrics 2011;128:S213 2. NCEP Expert Panel. Circulation 2004;110:227 3. Mandeep Keller et al. NOAH Cardiol. 2019December 23;5(5):540-548. doi: 10.1001/jamacardio.2020.0013 Current Interpretive Data was last revised on 2024. Testing performed by: [facility], [address] [place] [address]., [address] Non-HDL Cholesterol 110 mg/dL [facility] ([place]) Comment: Interpretive Data Ages < or = 19 years Acceptable: <120 mg/dL Borderline high: 120-144 mg/dL High: >145 mg/dL Ages > or = 20 years When triglycerides are >200 mg/dL, Non-HDL cholesterol is a secondary target of therapy with treatment goals that are 30 mg/dL greater than the LDL cholesterol target. Literature References: 1. Expert Panel on Integrated Guidelines for Cardiovascular Health and Risk Reduction in Children and Adolescents. Pediatrics 2011;128:S213 2. NCEP Expert Panel. Circulation 2004;110:227 Current Interpretive Data was last revised on 2018. Testing performed by: [facility], [address] [place] [address]., [address] Chol/HDL ratio 4 [facility] ([place]) Comment:Testing performed by : [address] [address] Blood 12/10/2024 8:36 AM CDT 12/10/2024 2:50 PM CDT Addis Reddy CASTING FINISHER LAB BLOOD ORDERABLES Final Result [facility] LI ([place]) 1 [facility] [place] [address] * Comprehensive metabolic panel (12/10/2024 8:36 AM CDT) Sodium 137 135 - 145 mmol/L Comment:Testing performed by : [address], [address] Potassium, pl 3.9 3.3 - 4.9 mmol/L [facility] ([place]) Comment:Testing performed by : [address], [address] Chloride 102 97 - 110 mmol/L [facility] ([place]) Comment:Testing performed by : [facility], [address] [place] [address], [address] CO2 26 22 - 32 mmol/L [facility] ([place]) Comment:Testing performed by : [address] [address] Anion gap 9 2 - 15 mmol/L [facility] ([place]) Comment:Testing performed by : [address], [address] BUN 9 6 - 25 mg/dL [facility] ([place]) Comment:Testing performed by : [address], [address] Creatinine 0.70 0.60 - 1.10 mg/dL [facility] ([place]) Comment:Testing performed by : [address], [address] Glucose 79 70 - 199 mg/dL [facility] ([place]) Comment: Interpretive Data Fasting glucose >/= 126 mg/dl is diagnostic for diabetes. Fasting is defined as no caloric intake for at least 8 hours. Fasting glucose between 100 mg/dl to 125 mg/dl is diagnostic of prediabetes. In a patient with classic symptoms of hyperglycemia or hyperglycemic crisis, a random glucose >/= 200 mg/dl is diagnostic for diabetes. In the absence of unequivocal hyperglycemia, results should be confirmed by repeat testing. The classification and Diagnosis of Diabetes Diabetes Care 2021; 46: S19-S40. Current interpretive data was last revised 2022. Testing performed by: [facility], [address] [place] [address]., [address] Calcium 9.3 8.5 - 10.3 mg/dL [facility] ([place]) Comment:Testing performed by : [address] [address] Bilirubin, total 0.8 0.1 - 1.2 mg/dL [facility] ([place]) Comment:Testing performed by : [address], [address] Protein, pl 6.8 6.5 - 8.5 g/dL [facility] ([place]) Comment:Testing performed by : [address], [address] Albumin 3.8 3.5 - 5.0 g/dL [facility] ([place]) Comment:Testing performed by : [address] [address] Alk phos 78 40 - 130 Units/L [facility] ([place]) Comment:Testing performed by : [address], [address] ALT 29 7 - 45 Units/L [facility] ([place]) Comment:Testing performed by : [address], [address] AST 25 10 - 45 Units/L [facility] ([place]) Comment:Testing performed by : [address], [address] Blood 12/10/2024 8:36 AM CDT 12/10/2024 2:50 PM CDT us Addis Reddy CASTING FINISHER LAB BLOOD ORDERABLES Final Result [facility] [place] 1 [facility] Department of Laboratories [place], [place] [id number] * Portable/Home Sleep Study (11/01/2024) Libertad Mccracken MD - 11/01/2024 HOME SLEEP APNEA TEST HISTORY: Jessica Cerda is a 29 y.o. female who presents for Home sleep apnea test. (HSAT). Reason for sleep study: snoring [place] Sleepiness Score: 3 Weight: 254 lbs BMI: 46.46 PROCEDURE: This is a single night diagnostic study. This Home Sleep apnea Test (HSAT) utilized an unattended FDA approved [employer] apnea link home air portable monitoring device investigating for obstructive sleep apnea. The patient was provided instructions of the device and application by the registered echo vascular technologist at the [facility]. This test was performed without a molecular technologist in attendance. In this study, the following parameters were monitored: Shalini-nasal airflow, snoring, chest respiratory effort, abdominal respiratory effort, body position, movement, oxygen saturation, and heart rate. Respiratory events are scored according to the criteria from The [place] Academy [employer] (AASM) Manual for the scoring of sleep and associated events - version 2.6. FINDINGS: The recorded bed time starts at 9:59 pm. The total recording duration is 7:17 hours. The respiratory events (RE) included 0 apneas and 1 hypopneas. The total Respiratory event index (JENNIFER) was 0.1 per hour. Obstructive apnea index was 0.0, central apnea index was 0.0, mixed apnea index was 0.0. Lowest SpO2 was 92 % and time spent < 88% was 0:00 hours. Oxygen desaturation index was 0.1. Patient spent 4:00 hours in supine and 1:23 hours in non-supine position. Average heart rate was 81/min, minimum heart rate was 60/min, and maximum heart rate was 120/min. INTERPRETATION: This is an adequate quality Home Sleep apnea Test. (HSAT) 1. This home sleep apnea study (HSAT) is negative for obstructive sleep apnea. RECOMMENDATIONS: 1. If there is strong clinical suspicion of sleep apnea, a repeat home sleep apnea test or in-lab attended sleep study should be considered. Limitations of the study: 1. A sleep EEG was not recorded; therefore, the actual amount of time spent in sleep, stages of sleep and respiratory events associated with arousals cannot be determined by this study. 2. All indexes are computed against monitoring time, not total sleep time. For this reason, the degree of severity may be underestimated * Please note: The severity of the sleep apnea may vary from night to night depending on body position during sleep, REM sleep and sleep efficiency. These factors should be taken into consideration. Libertad Cruz MD [facility] Sleep Medicine Narrative Libertad Cruz MD - 11/01/2024 Ocst is ready for review Libertad Cruz MD SLEEP CENTER ORDERABLES Final Re sult * POC Influenza A/B, COVID-19 antigen (10/19/2024 9:54 AM WALLPAPER INSTALLER) Influenza A Ag, POC Negative Negative [facility] Influenza B Ag, POC Negative Negative [facility] COVID-19 Ag POC Presumptive Negative Presumptive Negative, Invalid [facility] Nasal 10/19/2024 9:54 AM WALLPAPER INSTALLER Dian Sosa NP POINT OF CARE TEST ORDERABLES Fi nal Result [facility] [address] [place] [address], [facility] from Last 3 Months Insurance [facility] H[facility]/PPO Address: [address] [address] [place] [address] [employer] [facility] CHOICE PLUS [facility] H[facility]/PPO Address[facility] [address] [address] [place] [address] [facility] IDPA [facility] CHOICE PLUS [facility] H[facility]/PPO Address: [address] [address] [place] [address] [employer] Care Teams Patient Transporter Relationship Specialty Start Date End Date [place] MD [address] [place] [address] PCP - General Family Medicine 01/07/22 [place] [address] [facility] [address] [place] [address] Consulting Physician Orthopedic Surgery 01/22/24
--- OUTSIDE RECORDS SUMMARY | 2024-12-21 00:34 | XMS_ITS | Encounter Summary ---
Author Organization [facility] Address [address] [place] [address] Care Team Providers Care Genetic Technologist Name Role Phone Daivd Esquivel DO Primary Care Provider [phone] Robbie Gray MD Unavailable [phone] Encounter Details Date Type Department Care Team (Late st Contact Info) Description 03/28/2022 Ophth Exam [facility] [address] [place] [address] Adams Magallon MD [facility] [address] Social History Tobacco Use Types Packs/Day Years Used Date Smoking Tobacco: Never Assessed AUDIT-C Answer Date Recorded Q1: How often do you have a drink containing alc ohol? Never 03/29/2022 Average Number of Drinks Not on file 022 Frequency of Binge Drinking Not on file 12/2021 Comments Unknown Sex and Gender Information Value Date Recorded Sex Assigned at Not on file Legal Sex Female 2:30 AM CDT Gender Identity Not on file Sexual Orientation Not on file documented as of this encounter Functional Status documented as of this encounter Plan of Treatment Not on file documented as of this encounter Visit Diagnoses Not on filedocumented in this encounter Care Teams Genetic Technologist Relationship Specialty Start Date End Date David Esquivel DO [address] [place] [address] PCP - General Family Medicine 04/22/21 Robbie Gray MD [address] [id number] PCP - Attributed-[facility] Medicaid [place] 11/30/21 09/11/23 documented as of this encounter
--- OUTSIDE RECORDS SUMMARY | 2024-12-21 00:34 | XMS_ITS | Clinical Summary ---
Author Organization [facility] Address [address] [place] [address] Phone Care Team Providers Care Laboratory Helper Name Role Phone Unavailable Primary Care Provider Unavailabl e Allergies Active Allergy Reactions Criticality Noted Date Comments Amoxicillin Hives Low 01/11/2020 Doxycycline Swelling 07/15/2018 Hydrocodone-Acetaminophen Rash,Swelling 015 Pt reports that she is only allergic to hydrocodone. Pt is able to take acetaminophen. Nitrofurantoin Swelling,Nausea,Adam h 03/07/2015 Penicillins Swelling 07/15/2018 Pheniramine Other (see Comments) 10/20/2023 Elevated BP Medications montelukast (SINGULAIR) 10 MG Tablet Take 10 mg by mouth every evening. Active VENTOLIN HFA 108 (90 Base) MCG/ACT Aerosol Solution INHALE 2 PUFFS PO Q 4 TO 6 H PRN. 0 8 Active albuterol (PROAIR HFA) 108 (90 Base) MCG/ACT Aerosol SolutionIndicat ions:URI, acute take 2 Puffs by inhalation every 4 hours as needed for Wheezing or Cough. 1 Inhaler 9 Active Additional Information Patient not taking.Reported on 01/11/2020 XOFLUZA, 80 MG DOSE, 2 x 40 MG Tablet Therapy Pack TK 2 TS 1 DOSE 0 Active methylPREDNISol one (MEDROL) 4 MG Tablet Therapy PackIndications :Bug bite, initial encounter Use as per instructions on package. 21 Tab 0 Active Additional Information Patient not taking.Reported on 08/05/2021 promethazine-de xtromethorphan (PROMETHAZINE-D M) 6.25-15 MG/5ML SyrupIndication s:Acute viral bronchitis Take 5 mL by mouth every 4 hours as needed for Cough. 240 mL 1 Active Additional Information Patient not taking.Reported on 09/23/2021 albuterol (ProAir HFA) 108 (90 Base) MCG/ACT Aerosol SolutionIndicat ions:Acute viral bronchitis take 2 Puffs by inhalation every 4 hours as needed for Wheezing or Cough. 18 g 1 Active ondansetron (ZOFRAN-ODT) 4 MG TABLET DISPERSIBLEIndi cations:Nausea Take 1 Tablet by mouth every 8 hours as needed for Nausea - 1st line. 10 Tablet 2 Active Additional Information Patient not taking.Reported on 10/20/2023 azithromycin (ZITHROMAX) 250 MG Tablet 1 Active lisinopril (PRINIVIL, ZESTRIL) 10 MG Tablet 3 Active Fexofenadine HCl (ANASTASIIA PO) Take by mouth. Activ e Active Problems No known active problems Immunizations Immunization Administration Dates Next Due DTAP VACCINE 04/05/2009, 3,04/05/1999,05/03,02/28/1998,1997 Hepatitis B Vaccine, Pediatric/adolescent 05/03/1998,1997,1997,10/04 Hib Vaccine,unspecified Formulation 03/25,05/03/1998,02/28/1998,12/08 Human Papillomavirus (HPV) 9 -valent Vaccine 05/04/2012 Human Papillomavirus Vaccine (HPV), quadrivalent 03/03/2013,07/06/2012,05/04/2012 Inactivated Polio Vaccine 12/27/2002,04/1998,02/28/1998,12/08 Influenza Vaccine 05/11/2015 Influenza Vaccine, Quadrivalent, PF 09/17/2016 MMR Vaccine 12/27/2002,04/05/1999 Meningococcal C Conjugate Vaccine 04/05/2009 Meningococcal Vaccine 06/12/2015 TDAP Vaccine 02/05/2021,09/17/2016,04/05/2009 Varicella Vaccine Live 05/04/2012,12/27/2002 Social History Tobacco Use Types Packs/Day Years Used Date Smoking Tobacco: Never Smokeless Tobacco: Never Alcohol Use Standard Drinks/Week Comments No 0 (1 standard drink = 0.6 oz pur e alcohol) PHQ-2 Answer Date Recorded Total Score - Questions 1-9 0 02/2022 Sexually Active Control Partners Comments Yes I.U.D. Male Comments No Sex and Gender Information Value Date Recorded Sex Assigned at Not on file Legal Sex Female 2:50 PM [employer] Gender Identity Not on file Sexual Orientation Not on file Last Filed Vital Signs Vital Sign Reading Time Taken Comments Blood Pressure 108/70 10/20/2023 10:49 AM [employer] Pulse 96 10/20/2023 10:49 AM [employer] Temperature 36.1 C (97 F) 10/20/2023 10:49 AM [employer] Respiratory Rate 20 10/20/2023 10:49 AM [employer] Oxygen Saturation 97% 10/20/2023 10:49 AM [employer] Inhaled Oxygen Concentration - - Weight 109.3 kg (241 lb) 10/01/2021 1:53 PM [employer] Height 157.5 cm (5' 2 ) 10/01/2021 1:53 PM [employer] Body Mass Index 44.08 10/01/2021 1:53 PM [employer] Plan of Treatment Health Maintenance Due Date Last Done Comments Hepatitis C Virus (HCV) Screening 1997 Pap Smear 10/06/2023 10/06/2020 SARS-COV-2 Immunization ( season) 2024 01/15/2021, 12/25/2020 Influenza Immunization (Season Ended) 2025 06/08/2022, 06/25/2021, 06/16/2020, Additional history exists DTaP/Tdap/Td Immunization (11 - Td or Tdap) 01/29/2033 01/29/2023, 02/05/2021, 09/17/2016, Additional history exists Respiratory Syncytial Virus (RSV) Immunization (Adult) (1 - 1-dose 75+ series) 2072 Hepatitis B Immunization Completed 998, 1997, 1997, Additional history exists Human Papillomavirus (HPV) Immunization Discontinued 03/03/2013, 07/06/2012, 05/04/2012, Additional history exists Meningococcal Immunization (ACWY) Completed 06/12/2015 Pneumococcal Immunization Combined Aged Out No longer eligible based on patient's age to complete this topic Rotavirus Immunization Aged Out No lo nger eligible based on patient's age to complete this topic Insurance [place]ID [place] [address]
--- OUTSIDE RECORDS SUMMARY | 2024-12-21 00:34 | XMS_ITS | Clinical Summary ---
Author Organization [facility] Address [address] [place] [address] Care Team Providers Care Core Maker Helper Name Role Phone Los Luque MD Primary Care Provider [phone] Tucker Esquivel MD, Baldomero Malik Unavailable [phone] Allergies Active Allergy Reactions Criticality Noted Date [...] every 7 days 2 mL 5 11/03/19 Active amitriptyline (ELAVIL) 25 mg tabletIndicati ons:Migraine [...] 07/09/2024 Assessment & Plan (07/09/2024 12:56 PM POLICE COMMISSIONER): No improvement with cefdinir. Prescribed a course [...] 07/09/2024 Assessment & Plan (07/09/2024 12:56 PM POLICE COMMISSIONER): See discussion above. Insulin resistance 04/06/2024 Assessment & Plan (08/10/2024 11:16 AM POLICE COMMISSIONER): Chronic problem. She did very well with [...] exercise. Assessment & Plan (08/10/2024 11:16 AM POLICE COMMISSIONER): Continue working on healthy diet and exercise, [...] home. Assessment & Plan (10/24/2023 12:17 PM POLICE COMMISSIONER): Started on lisinopril July, she has had a dry cough since then. Will discontinue lisinopril and start losartan 25 mg daily. Encouraged patient to continue checking blood pressure periodically at home she will notify office for readings consistently greater than 130 systolic. Muscle strain 10/24/2023 Assessment & Plan (10/24/2023 12:19 PM POLICE COMMISSIONER): Continue tramadol. Instructed patient to continue ibuprofen [...] 10/24/2023 Assessment & Plan (10/24/2023 12:20 PM POLICE COMMISSIONER): Discontinue nystatin. Recommended use of ketoconazole shampoo such as Selsun blue to affected areas a few times per week. Thoroughly dry skin after bathing. Apply clotrimazole cream twice daily, this can be purchased [id number]. Follow- up if no improvement. Upper respiratory tract infection 10/24/2023 Assessment & Plan (10/24/2023 12:27 PM POLICE COMMISSIONER): Patient with nasal congestion and sinus pressure [...] 08/05/2023 Assessment & Plan (08/05/2023 1:33 PM POLICE COMMISSIONER): Recommend OTC hydrocortisone to area. Will also place referral to senior project engineer for testing. Family history of early CAD 08/05/2023 Assessment & Plan (08/05/2023 1:33 PM POLICE COMMISSIONER): Start lisinopril. Lipid panel ordered. Will also place referral to Cardiology as dad had 1st IA in his 30s. 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 Encouraged to take with high fat food. Will continue to follow. Assessment & Plan (08/10/2024 11:15 AM POLICE COMMISSIONER): Continue 50k weekly. Assessment & Plan (06/10/2024 6:20 PM CDT): Vitamin-D = 27 despite weekly vitamin-D supplementation. Assessment & Plan (04/06/2024 12:59 PM CDT): Chronic, uncontrolled Restart ergocalciferol 50 K once a week Assessment & Plan (12/16/2023 5:40 PM CDT): Taking 10,000 international units daily since 07/2023 Will check labs today plan for referral if no improvement. Assessment & Plan (08/05/2023 1:32 PM POLICE COMMISSIONER): Not currently taking supplement. Will check vitamin-D level and plan accordingly. Cystic fibrosis 08/04/2023 Overview (08/04/2023): Carrier - FOB - neg. Physical exam, annual 03/21/2023 Assessment & Plan (06/10/2024 6:21 PM CDT): Preventive exam; reviewed recommended preventive screenings and vaccinations. Encourage annual flu vaccine. Wear sunscreen/protective clothing when outdoors. -scheduled with senior clinical consultant later this week Assessment & Plan (03/21/2023 9:47 AM CDT): Preventive exam; reviewed recommended preventive screenings and vaccinations. Encourage annual flu vaccine. Wear sunscreen/protective clothing when outdoors. hypertension 03/21/2023 Assessment & Plan (08/05/2023 1:32 PM POLICE COMMISSIONER): Will start lisinopril. Reviewed lifestyle recommendations as well. Labs ordered. Will continue to monitor. Red flags reviewed. Assessment & Plan (03/21/2023 9:47 AM CDT): Reviewed hospitalization records and labs. Blood pressure is well controlled with current regimen, labetalol 200 mg t.i.d.. Patient is following with senior clinical consultant now, Dr. Sugar purivs. LFTs trending down and hospital discharge, plan to repeat labs in 2 weeks. Follow up with senior clinical consultant scheduled 04/01/2023. Patient continues to have mild nausea with dull headache, prescribed Zofran p.r.n. scheduled for follow-up with Neurology 05/13/2023 Mixed hyperlipidemia 03/21/2023 Assessment & Plan (08/04/2023 3:42 PM POLICE COMMISSIONER): Most recent lipid panel reviewed. Continue to [...] (08/04/2023): Added automatically from request for surgery [id number] Added automatically from request for surgery [id number] Gestational diabetes mellitus, class A2 03/12/20 21 Overview (08/04/2023): 30 - 32u NPH @ [...] of 45.0 to 49.9 in adult 06/27/2020 History of urinary tract infection 07/12/2015 08/04/2023 Increased frequency of urination 07/12/2015 08/04/2023 Encounters Date Type Department Care Team Description 12/15/2024 7:30 AM CDT Office Visit [facility] [address] [place] [address] Addis Reddy NP Vitamin D deficiency (Primary Dx); Hypertension, essential; Lipid screening; Intractable migraine without aura and without status migrainosus; Sensation of fullness in both ears; Class 3 severe obesity due to excess calories with serious comorbidity and body mass index (BMI) of 45.0 to 49.9 in adult ([facility]) 12/10/2024 8:20 AM CDT Lab [facility] [address] [place] [id number] Vitamin D deficiency; Hypertension, essential; Lipid screening 12/08/2024 Telephone [facility] [address] [place] [address] Rachelle Hemphill MA Labs Requested for Appointment 12/01/2024 2:15 PM CDT Office Visit [facility] Sleep Medicine at [place] [address] [facility] [address] [place] [id number] Libertad Cruz MD Obstructive sleep apnea syndrome (Primary Dx); Obesity, unspecified class, unspecified obesity type, unspecified whether serious comorbidity present 11/17/2024 2:45 PM CDT Office Visit [facility] Medical [facility] Care at [address] [place] [address] Nida Marlow NP Non-recurrent acute suppurative otitis media of right ear without spontaneous rupture of tympanic membrane (Primary Dx) 11/02/2024 11:00 AM CDT Office Visit [facility] [address] [address] Renata Madison NP Migraine without aura and without status migrainosus, not intractable (Primary Dx); Non-recurrent acute serous otitis media of left ear; Class 3 severe obesity due to excess calories with serious comorbidity and body mass index (BMI) of 45.0 to 49.9 in adult (HCC) 11/02/2024 Documentation [facility] Warm Hand Off Program [address] [place] [address] Misti aBssett LCSW 11/01/2024 Nurse Triage [facility] [address] [phone] Los Luque MD 10/27/2024 3:00 PM POLICE COMMISSIONER - 10/27/2024 11:59 PM POLICE COMMISSIONER Hospital Encounter [facility] [address] [place] [address] Obstructive sleep apnea syndrome Discharge Disposition: Discharge to home or self care 10/19/2024 9:30 AM POLICE COMMISSIONER Office Visit [facility] at [address] [place] [address] Dian Sosa NP Acute maxillary sinusitis, recurrence not specified (Primary Dx); Other migraine without status migrainosus, intractable; Elevated blood pressure reading from Last 3 Months Immunizations Immunization Administration Dates Next Due DTaP [...] Conjugate 04/05/2009 Meningococcal MCV4P (Menactra) 06/12/2015,2008 Tdap 01/29/2023,,09/17/2016,04/05 Varicella 05/04/2012,12/27/2002 Surgical History Surgery Date Site/Laterality Comments OTHER SURGICAL HISTORY Bilateral Eye surgery X2 CHOLECYSTECTOMY 04/25/2021 - 05/24/2021 SECTION 01/27/2023 Medical History Medical History Date Comments Asthma GERD (gastroesophageal reflux disease) Preeclampsia Placental insufficiency Increased frequency of urination 07/12/2015 History of urinary tract infection 07/12/2015 Migraines At risk for alteration in status 3 History. Delivered at 39 - induction. Gestational diabetes Family History Medical History Relation Name Comments Cirrhosis Father Stephon Colon cancer Father Stephon Diabetes Father Stephon Heart attack Father Stephon Heart disease Father Stephon Stroke Father Stephon No Known Problems Half-Brother No Known Problems Half-Sister No Known Problems Mother Colon cancer Other 1 Family history of Cancer, colon; Ovarian cancer Other 2 Family histor y of Cancer, ovarian; Diabetes Other 3 Family history of Diabetes mellitus; Hypertension Other 4 Family history of Hypertension; Hypertension Sister Tiffanie Relation Name Status Comments Father Stephon (Age 58) passed in 04/2020 Half-Brother Alive Half-Sister Alive Mother Alive Other 1 Other 2 Other 3 Other 4 Sister Tiffanie Alive Social History Tobacco Use Types Packs/Day Years Used Date Smoking Tobacco: Never Smokeless Tobacco: Never Tobacco Cessation:Counseling Given: Not Answered Alcohol Use Standard Drinks/Week Comments No 0 (1 standard drink = 0.6 oz pur e alcohol) [facility] [employer] Answer Date Recorded In the past 12 months has [employer], gas, oil, or water [employer] threatened to shut off services in your [...] 11/02/2024 How often do you attend chur ch or rastafarian services? Never 11/02/2024 Do you belong to any clubs o r organizations such as faith groups, unions, fraternal or athletic groups, or [...] staff should administer the PHQ-9) 0 11/02/2024 [facility] - Occupational Stress Questionnaire Answer Date Recorded [...] any time in the past [address] [facility], were you homeless or living in a chcf (including now)? No 11/02/2024 Personal Safety Answer [...] Orientation Straight 04/06/2024 9: 59 AM CDT Obstetrics History Para Term AB IAB SAB Ectopic Multiple Livin g Live Births 1 Date Outcome GA Total Labor Labor/2nd/3rd Weight Sex Type Anes PTL Johanna A1 A5 Name Clin Last Filed Vital Signs Vital Sign Reading [...] 12/15/2024 7:31 AM CDT Plan of Treatment Health Maintenance Due Date Last Done Comments Cervical Cancer Screening 1997 Hepatitis C Screening 1997 Covid-19 Vaccine ( season) 2024 01/15/2021, 12/25/2020 Regular Well Visit/Exam 18-64 06/10/2025 06/10/2024, 03/21/2023 Depression Screening 11/02/2025 11/02/2024, 11/02/2024, 08/10/2024, Additional history exists DTaP/Tdap/Td Vaccine (11 - Td or Tdap) 01/29/2033 01/29/2023, 02/05/2021, 09/17/2016, Additional history exists Hepatitis B Screening Completed 05/03/1998 , 05/03/1998, 1997, Additional history exists Varicella Vaccines Completed 05/04/2012, 12/27/2002 HPV Vaccines Completed 03/03/2013, 06/25, 05/04/2012, Additional history exists Influenza Vaccine Completed 06/10/2024, , 06/25/2021, Additional history exists Pneumococcal vaccine <65 Aged Out No longer eligible based on patient's age to complete this topic Procedures Procedure Name Priority Date/Time Associated Diagnosis [...] A/B, COVID-19 ANTIGEN Routine 10/19/2024 9:54 AM POLICE COMMISSIONER Acute maxillary sinusitis, recurrence not specified from [...] was last reviewed 2021. Testing performed by: [facility], [address] [place] [address]., [id number] Blood 12/10/2024 8:36 AM CDT 12/10/2024 2:55 PM CDT Addis Reddy NP LAB BLOOD ORDERABLES Final Result [facility] ([place]) [address] [facility] [place] [address] * Differential, auto (12/10/2024 8:36 AM CDT) Neutrophil abs 4.63 1.50 - 6.50 K/cumm Comment:Testing performed by : [address] [address] Imm gran abs 0.02 0.00 - 0.10 K/cumm [facility] ([place]) Comment:Testing performed by : [facility] [address] [place] [address]., [address] Lymphocyte abs 1.66 0.80 - 3.30 K/cumm [facility] ([place]) Comment:Testing performed by : [facility], [address] [place] [address]., [address] Monocyte abs 0.42 0.20 - 0.80 K/cumm [facility] ([place]) Comment:Testing performed by : [facility], [address] [place] [address]., [address] Eosinophil abs 0.03 0.00 - 0.50 K/cumm [facility] ([place]) Comment:Testing performed by : [facility], [address] [place] [address]., [address] Basophil abs 0.04 0.00 - 0.10 K/cumm [facility] ([place]) Comment:Testing performed by : [address] [address] Neutrophil pct 68.1 % [facility] ([place]) Comment: Interpretive Data Percent cell count reference ranges are not reported, since discordance with absolute values may lead to misinterpretation of CBC data. Current Interpretive Data was last revised on 2017. Testing performed by: [address] [address] Imm gran pct 0.3 % [facility] ([place]) Comment: Interpretive Data Percent cell count reference ranges are not reported, since discordance with absolute values may lead to misinterpretation of CBC data. Current Interpretive Data was last revised on 2017. Testing performed by: [address] [address] Lymphocyte pct 24.4 % [facility] ([place]) Comment: Interpretive Data Percent cell count reference ranges are not reported, since discordance with absolute values may lead to misinterpretation of CBC data. Current Interpretive Data was last revised on 2017. Testing performed by: [address] [address] Monocyte pct 6.2 % [facility] ([place]) Comment: Interpretive Data Percent cell count reference ranges are not reported, since discordance with absolute values may lead to misinterpretation of CBC data. Current Interpretive Data was last revised on 2017. Testing performed by: [facility], [address] [place] [address]., [address] Eosinophil pct 0.4 % [facility] ([place]) Comment: Interpretive Data Percent cell count reference ranges are not reported, since discordance with absolute values may lead to misinterpretation of CBC data. Current Interpretive Data was last revised on 2017. Testing performed by: [address] [address] Basophil pct 0.6 % [facility] ([place]) Comment: Interpretive Data Percent cell count reference ranges are not reported, since discordance with absolute values may lead to misinterpretation of CBC data. Current Interpretive Data was last revised on 2017. Testing performed by: [address] [address] Blood 12/10/2024 8:36 AM CDT 12/10/2024 2:50 PM CDT Addis Reddy NP LAB BLOOD ORDERABLES Final Result [facility] ([place]) [address] [facility] Department [place] [address] * CBC with auto differential (12/10/2024 8:36 AM CDT) WBC 6.80 3.80 - 9.90 K/cumm Comment:Testing performed by : [address], [address] Hgb 13.4 11.9 - 15.5 g/dL [facility] ([place]) Comment:Testing performed by : [address] [address] Hct 41.0 35.6 - 45.5 % [facility] ([place]) Comment:Testing performed by : [address] [address] Plt 279 150 - 400 K/cumm [facility] ([place]) Comment:Testing performed by : [address], [address] MPV 10.8 9.1 - 12.3 fL [facility] ([place]) Comment:Testing performed by : [facility], [address] [place] [address], [address] RBC 4.58 3.90 - 5.20 M/cumm [facility] ([place]) Comment:Testing performed by : [facility], [address] [place] [address], [address] MCV 89.5 81.3 - 96.4 fL [facility] ([place]) Comment:Testing performed by : [facility], [address] [place] [address], [address] MCH 29.3 27.1 - 33.3 pg [facility] ([place]) Comment:Testing performed by : [facility], [address] [place] [address], [address] MCHC 32.7 32.3 - 35.7 g/dL [facility] ([place]) Comment:Testing performed by : [address], [address] RDW CV 12.6 11.1 - 14.9 % [facility] ([place]) Comment:Testing performed by : [address], [address] RDW SD 41.3 35.7 - 48.1 fL [facility] ([place]) Comment:Testing performed by : [address], [address] NRBC abs 0.00 0.00 - 0.01 K/cumm [facility] ([place]) Comment:Testing performed by : [address], [address] Blood 12/10/2024 8:36 AM CDT 12/10/2024 2:50 PM CDT us Addis Reddy BUSINESS PROCESS EXPERT LAB BLOOD ORDERABLES Final Result [facility] ([place]) [address] [facility] Department of Laboratories [place], [place] [id number] * (ABNORMAL) Vitamin D 25 hydroxy (12/10/2024 8:36 AM CDT) Vitamin D 25-OH 16(L) 30 - 80 ng/mL Comment:Testing performed by : [address] [address] Blood 12/10/2024 8:36 AM CDT 12/10/2024 2:50 PM CDT Addis Reddy NP LAB BLOOD ORDERABLES Final Result [facility] ([place]) [address] [facility] Department [place] [address] * (ABNORMAL) Lipid panel (12/10/2024 8:36 AM [...] last revised on 2018. Testing performed by: [address] [address] Triglycerides 63 <=149 mg/dL [facility] ([place]) [...] last revised on 2018. Testing performed by: [address] [address] HDL 39(L) >=40 mg/dL [facility] ([place]) Comment: Interpretive Data Ages < or = [...] last revised on 2018. Testing performed by: [facility], [address] [place] [address]., [address] LDL, calculated 97 <=129 mg/dL [facility] ([place]) Comment: Interpretive Data [...] last revised on 2024. Testing performed by: [facility], [address] [place] [address]., [address] Non-HDL Cholesterol 110 mg/dL [facility] ([place]) Comment: Interpretive Data [...] last revised on 2018. Testing performed by: [address] [address] Chol/HDL ratio 4 [facility] ([place]) Comment:Testing performed by : [address], [address] Blood 12/10/2024 8:36 AM CDT 12/10/2024 2:50 PM CDT Addis Reddy NP LAB BLOOD ORDERABLES Final Result [facility] ([place]) [address] [facility] Department [place] [address] * Comprehensive metabolic panel (12/10/2024 8:36 AM CDT) Sodium 137 135 - 145 mmol/L Comment:Testing performed by : [address], [address] Potassium, pl 3.9 3.3 - 4.9 mmol/L [facility] ([place]) Comment:Testing performed by : [address], [address] Chloride 102 97 - 110 mmol/L [facility] ([place]) Comment:Testing performed by : [address], [address] CO2 26 22 - 32 mmol/L [facility] ([place]) Comment:Testing performed by : [address], [address] Anion gap 9 2 - 15 mmol/L [facility] ([place]) Comment:Testing performed by : [address], [address] BUN 9 6 - 25 mg/dL [facility] ([place]) Comment:Testing performed by : [address], [address] Creatinine 0.70 0.60 - 1.10 mg/dL [facility] ([place]) Comment:Testing performed by : [address] [address] Glucose 79 70 - 199 mg/dL [facility] [...] classification and Diagnosis of Diabetes Diabetes Care 202; 46: S19-S40. Current interpretive data was last revised 2022. Testing performed by: [address] [address] Calcium 9.3 8.5 - 10.3 mg/dL [facility] ([place]) Comment:Testing performed by : [address], [address] Bilirubin, total 0.8 0.1 - 1.2 mg/dL [facility] ([place]) Comment:Testing performed by : [address], [address] Protein, pl 6.8 6.5 - 8.5 g/dL [facility] ([place]) Comment:Testing performed by : [address], [address] Albumin 3.8 3.5 - 5.0 g/dL [facility] ([place]) Comment:Testing performed by : [address], [address] Alk phos 78 40 - 130 Units/L [facility] ([place]) Comment:Testing performed by : [address], [address] ALT 29 7 - 45 Units/L [facility] ([place]) Comment:Testing performed by : [address], [address] AST 25 10 - 45 Units/L [facility] ([place]) Comment:Testing performed by : [address], [address] Blood 12/10/2024 8:36 AM CDT 12/10/2024 2:50 PM CDT us Addis Reddy NP LAB BLOOD ORDERABLES Final Result [facility] [place] [facility] Department [place] [address] * Portable/Home Sleep Study (11/01/2024) Libertad Mccracken MD - 11/01/2024 HOME SLEEP APNEA TEST HISTORY: Jessica Cerda is a 29 y.o. female who presents for Home sleep apnea test. (HSAT). Reason for sleep study: snoring Freedom Sleepiness Score: 3 Weight: 254 lbs BMI: 46.46 PROCEDURE: This is a single night diagnostic study. This Home Sleep apnea Test (HSAT) utilized an unattended FDA approved RedMed apnea link home air portable monitoring device investigating for obstructive sleep apnea. The patient was provided instructions of the device and application by the registered supervisor microbiology technologists at the [facility]. This test was performed without a medical technologist chief in attendance. In this study, the following parameters were monitored: Shalini-nasal airflow, snoring, chest respiratory effort, abdominal respiratory effort, body position, movement, oxygen saturation, and heart rate. Respiratory events are scored according to the criteria from The [place] [employer] (AASM) Manual for [...] be taken into consideration. Libertad Cruz MD [facility] Sleep Medicine Narrative Libertad Cruz MD - 11/01/2024 Ocst is ready for review Libertad Cruz MD SLEEP CENTER ORDERABLES Final Re sult * POC Influenza A/B, COVID-19 antigen (10/19/2024 9:54 AM POLICE COMMISSIONER) Influenza A Ag, POC Negative Negative [facility] Influenza B Ag, POC Negative Negative [facility] COVID-19 Ag POC Presumptive Negative Presumptive Negative, Invalid [facility] Nasal 10/19/2024 9:54 AM POLICE COMMISSIONER Dian Sosa NP POINT OF CARE TEST ORDERABLES Fi nal Result [facility] [address] [place] [address], [facility] from Last 3 Months Insurance [facility] CHOICE PLUS [facility] HMO/PPO Address: [address] [place] [id number] [employer]PA [facility] CHOICE PLUS [facility] HMO/PPO Address: [address] [address] [place] [address] BLUE ACCESS [place] [facility] CHOICE PLUS [facility] HMO/PPO Address: [address] [address] [place] [address] [employer]PA Care Teams Core Maker Helper Relationship Specialty Start Date End Date Los Luque MD [address] [place] [address] PCP - General Family Medicine 01/07/22 [place] [address] [facility] [address] [place] [address] Consulting Physician Orthopedic Surgery 01/22/24
--- OUTSIDE RECORDS SUMMARY | 2024-12-21 00:34 | XMS_ITS | Data Portability ---
Author Organization [facility] Address [address] [place] [address] [place] [address] Care Team Providers Care Supervising Editor News Reel Name Role Phone MERRY CABELLO Primary Care Provider [phone] Assessment No assessment recorded. Plan of Treatment Reminders Order Date Submit Date Provider Last Modified By Organization Details Last Modified Time Details Appointments SURG Lap Ovarian Cystectom y 2024 08:30A Krishna NO MD Not available Not available Not available SURG POST OP 2024 08:30A Krishna NO MD Not available Not available Not available [facility] 2024 04:15P FRANCIS Sullivan Not available Not available Not available Lab None recorded. Referral None recorded. Procedures None recorded. Surgeries laparosco pic ovarian cystectom y (SURG) 2024 025 [facility], [address] [facility] [address], [place], [address], 12/20/2024 15:30:30 Imaging US, transvagi nal [address], [address], [place], [address], 12/08/2024 17:09:20 US, pelvis [address], [place], [address], 10/27/2024 17:38:23 US, transvagi nal 2024 025 ENRIQUETA Thomas[address], [address], [place], [address], 10/27/2024 18:43:22 Medication Orders estradiol 2 mg tablet 2024 025 [id number], [address], [place], [place], [id number], 10/30/2024 11:20:41 Patient TargetsNo targets recorded. Patient InstructionsNo instructions recorded. Reason for Referral None Reported. Results Created Date Observation Date Name Description Value Unit Range Abnormal Flag Note LastModifiedBy Organization Detail LastModifiedTime 09/01/1909/01/2024 US, trans vagin al No observ ation record ed. [email or web address] [place] [address], [place], [address], 09/01/2024 18:09:34 09/08/19 25 09/08/2024 US, pelvi s No observ ation record ed. [email or web address] [place] [address], [place], [address], 09/08/2024 18:17:57 09/08/19 25 09/08/2024 US, trans vagin al No observ ation record ed. [email or web address] [place] [address], [place], [address], 09/08/2024 18:18:07 09/08/19 25 09/08/2024 US, pelvi s No observ ation record ed. ENRIQUETA Lazaro [address], [place], [address], 09/13/2024 11:54:46 10/28/19 25 10/27/2024 US, pelvi s No observ ation record ed. [email or web address] [place] [address], [place], [address], 10/27/2024 18:43:13 03/05/20 25 10/27/2024 US, trans vagin al No observ ation record ed. [email or web address] [place] [address], [place], [address], 10/27/2024 18:43:22 10/28/19 25 10/27/2024 US, pelvi s No observ ation record ed. [email or web address] [address], [place], [address], 11/05/2024 18:34:46 12/09/19 25 12/08/2024 US, trans vagin al No observ ation record ed. [email or web address] [place] [address], [place], [address], 12/08/2024 15:22:37 12/09/19 25 12/08/2024 US, trans vagin al No observ ation record ed. [email or web address] [address], [place], [address], 12/09/2024 09:34:48 Result Notes None recorded. Problems Name Problem SNOMED Code Status Onset Date Resolution Date Notes Provider Name and Address Organization Details Recorded Time Carrier of cystic fibrosis gene mutation 144071213 Active 2021 Nelson No MD [address], [place], [address], [facility] 2 10:47:07 Pregnanc y 19471681 Completed 202102/07/2023 Steve ramírez, [facility] 3 15:54:22 Headache 42003530 Completed chronic Steve ramírez, [facility] 3 15:54:14 Pre-ecla mpsia 244481194 Completed post , started LD ASA Steve ramírez, [facility] 3 15:54:14 Nonreass uring status 187470703 Completed History. Delivere d at 39 - inductio n. Steve ramírez, [facility] 3 15:54:14 Gestatio nal diabetes mellitus 93746202 Completed 01/21 - 34u NPH @ HS. h/o GDMa2. Antenata l testing Steve ramírez, [facility] 3 15:54:14 Cystic fibrosis 005012081 Completed Carrier - FOB - neg. Steve Chaudhry [facility] 3 15:54:14 Obesity 858632356 Completed Class 3 - nsts at 34 wks. Steve ramírez, [facility] 3 15:54:13 SARS-CoV -2 Completed 2021 ASA & serial growth Steve ramírez, [facility] 3 15:54:13 Vitamin D deficien cy 38724027 Completed November - June range - Rpt Steve ramírez, [facility] 3 15:54:13 Disorder of placenta 717046479 Completed Bilobed Steve Chaudhry [facility], [facility] 3 15:54:14 Obesity 029459987 Active Class 3 - nsts at 34 wks. Steve ramírez, [facility] 3 15:54:13 Vitamin D deficien cy 92772853 Active November - June range - Rpt Steve ramírez, [facility] 3 15:54:13 Shoulder dystocia - delivere d 098193250 Completed 12/24/22- hx shoulder dystocia with brachial plexus injury SECTION Steve ramírez, [facility] 3 15:54:13 Past pregnanc y history of gestatio nal diabetes mellitus 733825260 Active 2022 Kathy Wolfe null, [facility] 3 10:32:18 Mixed anxiety and depressi ve disorder 520926831 Active [address] [facility], [facility] 4 11:46:08 Diabetes mellitus due to structur ally abnormal insulin 63493138 Active [address] [facility], [facility] 4 11:46:25 Problem Notes None recorded. Procedures Surgical History Date Name Laterality Status Provider Name and Address Organization Details Recorded Time 024 Date of Last Pap Smear completed Lucille Prajapati [facility] 09/15/2024 17:06:34 024 procedure on shoulder completed Kathyyadi Wolfe [facility] 06/12/2024 11:47:59 024 procedure on elbow completed Kathyyadi Wolfe [facility] 06/12/2024 11:48:13 023 Control Implant Insertion completed Mireya Kirby MD [address], [place], [address], [facility] 03/07/2023 10:35:41 023 SECTION (SURG) completed Sheridan Tenorio [facility] 01/28/2023 10:30:38 023 I&D completed Mireya Kirby MD [address], [place], [address], [facility] 09/20/2022 10:54:03 021 Cholecystectomy completed Maude Phelps [facility] 12/20/2021 12:09:13 005 procedure on eye completed Maude Mattie [facility] 12/20/2021 12:09:28 Imaging Results Imaging Date Name Status LastModified by Organization Details LastModified Time 09/01/2024 US, transvaginal completed [email or web address] [place] [address], [place], [address], 09/01/2024 18:09:34 09/08/2024 US, pelvis completed [email or web address] [place] [address], [place], [address], 09/08/2024 18:17:57 09/08/2024 US, transvaginal completed [email or web address] [place] [address], [place], [address], 09/08/2024 18:18:07 09/08/2024 US, pelvis completed ENRIQUETA [address], [place], [address], 09/13/2024 11:54:46 10/27/2024 US, pelvis completed [email or web address] [place] [address], [place], [address], 10/27/2024 18:43:13 10/27/2024 US, transvaginal completed [email or web address] [place] [address], [place], [address], 10/27/2024 18:43:22 10/27/2024 US, pelvis completed [email or web address] [address], [place], [address], 11/05/2024 18:34:46 12/08/2024 US, transvaginal completed [email or web address] [place] [address], [place], [address], 12/08/2024 15:22:37 12/08/2024 US, transvaginal completed [email or web address] [address], [place], [address], 12/09/2024 09:34:48 Procedure Notes None recorded. Medical Equipment None Reported. Allergies Allergen ID Allergen Name Allergen Category Reaction Reaction Severity Criticality Documentation Date Start Date Code Code System Note Provider Name and Address Organization Details Recorded Time amoxicill in medicatio n Not available Not available Not available 12/20/2021 723 RxNorm Maude Phelps [facility] 2 11:52:53 76364 Product containin g penicilli n (product) medicatio n Not available Not available Not available 12/20/2021 04762 8001 SNOMED Maude [facility] 2 11:53:06 79569 Macrobid medicatio n Not available Not available Not available 12/20/2021 62215 1 RxNorm Maude Phelps [facility] 2 11:53:14 68619 doxycycli ne Not available Not available Not available Not available 12/20/2021 3640 RxNorm Maude Phelps [facility] 2 11:53:25 60433 acetamino phen / hydrocodo ne medicatio n Not available Not available Not available 06/04/2022 06505 2 RxNorm Maude Phelps [facility] 2 10:27:39 61747 phentermi ne medicatio n other Not available Not available 10/30/2024 8152 RxNorm Kathy Wolfe [facility] 5 11:20:20 Medications Name Sig Start Date Stop Date Status Note LastModified by Organization Details LastModified Time binaxnow cov kit home alla 07/16 completed Not Available Not Available Not Available cyclobenzap rine 10 mg tablet 10/19 /2024 completed Not Available Not Available Not Available fluconazole 100 mg tablet TAKE 1.5 TABLETS BY MOUTH DAILY FOR 1 DOSE 04/18 completed Not Available Not Available Not Available methocarbam ol 500 mg tablet TAKE ONE TABLET BY MOUTH TWICE DAILY 09/01 completed Not Available Not Available Not Available terconazole 0.4 % vaginal cream 10/17 completed Not Available Not Available Not Available promethazin e-DM 6.25 mg-15 mg/5 mL oral syrup TAKE 5 ML BY MOUTH EVERY 4 HOURS NEEDED FOR COUGH 06/04 completed Not Available Not Available Not Available clindamycin HCl 300 mg capsule 06/12 completed Not Available Not Available Not Available albuterol sulfate 2.5 mg/3 mL (0.083 %) solution for nebulizatio n USE 1 VIAL VIA NEBULIZER EVERY 6 HOURS NEEDED FOR BREATHING PROBLEMS 03/03 completed Not Available Not Available Not Available azithromyci n 250 mg tablet TAKE 2 TABLETS BY MOUTH FOR 1 DAY THEN TAKE 1 TABLET BY MOUTH DAILY FOR 4 DAYS 12/15 completed Not Available Not Available Not Available fluconazole 150 mg tablet TAKE 1 TABLET BY MOUTH NOW. REPEAT IN 7 DAYS IF SYMPTOMS PERSIST 09/01 completed Not Available Not Available Not Available Nystop 100,000 unit/gram topical powder APPLY TO THE AFFECTED AREA TWICE DAILY 06/12 completed Not Available Not Available Not Available meloxicam 15 mg tablet TAKE 1 TABLET BY MOUTH EVERY DAY 06/12 completed Not Available Not Available Not Available prednisone 20 mg tablet 10/30 completed Not Available Not Available Not Available terconazole 0.8 % vaginal cream 10/17 completed Not Available Not Available Not Available clobetasol 0.05 % topical cream APPLY EXTERNALL Y TO THE AFFECTED AREA TWICE DAILY 10/30 completed Not Available Not Available Not Available phentermine 15 mg capsule TAKE 1 CAPSULE BY MOUTH EVERY DAY 06/04 completed Not Available Not Available Not Available sumatriptan 50 mg tablet 06/04 completed Not Available Not Available Not Available topiramate 25 mg tablet 06/04 completed Not Available Not Available Not Available metronidazo le 500 mg tablet TAKE 1 TABLET BY MOUTH TWICE DAILY WITH FOOD FOR 7 DAYS. AVOID ALCOHOL WHILE TAKING THIS MEDICATIO N 06/09 completed Not Available Not Available Not Available sulfamethox azole 800 mg-trimetho prim 160 mg tablet TAKE 1 TABLET BY MOUTH TWICE DAILY FOR 3 DAYS 09/01 completed Not Available Not Available Not Available tramadol 50 mg tablet TAKE 1 TABLET BY MOUTH EVERY 6 HOURS NEEDED ACUTE PAIN 06/12 completed Not Available Not Available Not Available amitriptyli ne 50 mg tablet TAKE 1 TABLET BY MOUTH EVERY DAY AT BEDTIME 06/04 completed Not Available Not Available Not Available zolmitripta n 5 mg tablet TAKE 1 TABLET BY MOUTH 1 TIME NEEDED FOR MIGRAINE HEADACHE. MAY REPEAT 1 TIME AT LEAST 2 HOURS. DO NOT EXCEED 2 DOSES IN 24 HOURS 06/04 completed Not Available Not Available Not Available ondansetron 8 mg disintegrat ing tablet DISSOLVE 1 TABLET ON THE TONGUE TWICE DAILY 10/08 completed Not Available Not Available Not Available nystatin-tr iamcinolone 100,000 unit/gram-0 .1 % topical ointment APPLY TO THE AFFECTED AREA(S) BY TOPICAL ROUTE 2 TIMES PER DAY FOR 5 DAYS 06/12 completed Not Available Not Available Not Available oxycodone-a cetaminophe n 5 mg-325 mg tablet TAKE 1 TABLET BY MOUTH DAILY NEEDED FOR POST-OP PAIN 09/01 completed Not Available Not Available Not Available alprazolam 0.25 mg tablet TAKE 1 TABLET BY MOUTH 1 HOUR PRIOR TO PROCEDURE MAY TAKE ADDITIONA L TABLET 1/2 HOUR PRIOR TO PROCEDURE IF NECESSARY . 06/12 completed Not Available Not Available Not Available oxycodone-a cetaminophe n 10 mg-325 mg tablet TAKE ONE TABLET BY MOUTH EVERY 6 TO 8 HOURS NEEDED FOR PAIN 06/12 completed Not Available Not Available Not Available OneTouch Ultra Test strips 03/03 completed Not Available Not Available Not Available amitriptyli ne 10 mg tablet TAKE 3 TABLETS BY MOUTH EVERY DAY AT BEDTIME active Not Available Not Available No t Available benzonatate 100 mg capsule 06/12 completed Not Available Not Available Not Available cephalexin 500 mg capsule TAKE 1 CAPSULE BY MOUTH TWICE DAILY FOR 10 DAYS 03/03 completed Not Available Not Available Not Available tacrolimus 0.1 % topical ointment APPLY TO RASH ON ABDOMEN TWICE DAILY UNTIL CONTROLLE D THEN 2 TIME A WEEK FOR MAINTENAN CE 06/12 completed Not Available Not Available Not Available clotrimazol e-betametha sone 1 %-0.05 % topical cream 11/04 completed Not Available Not Available Not Available lisinopril 10 mg tablet 06/12 completed Not Available Not Available Not Available prednisone 50 mg tablet 06/12 completed Not Available Not Available Not Available losartan 25 mg tablet 06/12 completed Not Available Not Available Not Available nystatin-tr iamcinolone 100,000 unit/g-0.1 % topical cream APPLY TOPICALLY TO THE AFFECTED AREA TWICE DAILY FOR 5 DAYS 06/12 completed Not Available Not Available Not Available estradiol 2 mg tablet TAKE 1 TABLET BY MOUTH EVERY DAY 10/30 completed Not Available Not Available Not Available ergocalcife rol (vitamin D2) 1,250 mcg (50,000 unit) capsule TAKE 1 CAPSULE BY MOUTH 1 TIME A WEEK active Not Available Not Available No t Available levofloxaci n 750 mg tablet 10/30 completed Not Available Not Available Not Available methylpredn isolone 4 mg tablets in a dose pack FOLLOW PACKAGE DIRECTION S 12/15 completed Not Available Not Available Not Available labetalol 100 mg tablet 06/09 completed Not Available Not Available Not Available albuterol sulfate HFA 90 mcg/actuati on aerosol inhaler INHALE 2 PUFFS BY MOUTH EVERY 4 HOURS NEEDED 06/12 completed Not Available Not Available Not Available ketoconazol e 2 % topical cream APPLY TOPICALLY TO THE AFFECTED AREA DAILY FOR 14 DAYS 09/01 completed Not Available Not Available Not Available ondansetron 4 mg disintegrat ing tablet DISSOLVE 1 TO 2 TABLETS BY MOUTH EVERY 8 HOURS NEEDED FOR NAUSEA 09/01 completed Not Available Not Available Not Available cefdinir 300 mg capsule 12/15 completed Not Available Not Available Not Available naproxen 500 mg tablet TAKE 1 TABLET BY MOUTH TWICE DAILY WITH FOOD NEEDED. DO NOT TAKE WITH OTHER ANTIINFLA MMATORIES 09/01 completed Not Available Not Available Not Available rizatriptan 5 mg tablet 06/04 completed Not Available Not Available Not Available azithromyci n 500 mg tablet TAKE 1 TABLET BY MOUTH DAILY FOR 3 DAYS 01/04 completed Not Available Not Available Not Available bupropion HCl XL 150 mg 24 hr tablet, extended release 10/30 completed Not Available Not Available Not Available Vitamin D3 10/30 completed Not Available Not Available Not Available Vitamin 03/03 completed Not Available Not Available Not Available Metrazole 06/04 completed Not Available Not Available Not Available One Daily Women's 10/17 completed Not Available Not Available Not Available cholecalcif cornelia (vitamin D3) 1,250 mcg (50,000 unit) capsule TAKE 1 CAPSULE BY MOUTH ONCE A WEEK 11/21 completed Not Available Not Available Not Available oxycodone 10 mg tablet 09/01 completed Not Available Not Available Not Available OneTouch Delica Lancets 33 gauge USE TO TEST BLOOD SUGARS FOUR TIMES DAILY 03/03 completed Not Available Not Available Not Available Vios Aerosol Delivery System DIRECTED 10/17 completed Not Available Not Available Not Available Nexplanon 68 mg subdermal implant Inject by subcutane ous route. active Not Available Not Available No t Available Fioricet 50 mg-300 mg-40 mg capsule 10/17 completed Not Available Not Available Not Available Humulin N NPH U-100 Insulin KwikPen 100 unit/mL (3 mL) subcutaneou s INJECT 5 UNITS UNDER THE SKIN AT BEDTIME 03/03 completed Not Available Not Available Not Available Arnuity Ellipta 200 mcg/actuati on powder for inhalation INHALE 1 INHALATIO N EVERY DAY. RINSE MOUTH AFTER USE. 06/12 completed Not Available Not Available Not Available TRUEplus Pen Needle 32 gauge x 5/32 TO USE WITH INSULIN 03/03 completed Not Available Not Available Not Available Ozempic 0.25 mg or 0.5 mg (2 mg/1.5 mL) subcutaneou s pen injector Inject 0.25 mg every week by subcutane ous route. 06/04 completed Not Available Not Available Not Available Alive 10/17 completed Not Available Not Available Not Available OneTouch Ultra2 Meter USE TO TEST BLOOD SUGAR FOUR TIMES DAILY 03/03 completed Not Available Not Available Not Available Ozempic 1 mg/dose (4 mg/3 mL) subcutaneou s pen injector INJECT 1 MG UNDER THE SKIN EVERY WEEK active Not Available Not Available No t Available BinaxNOW COVID-19 Ag Self Test kit TEST DIRECTED TODAY 09/01 completed Not Available Not Available Not Available Mounjaro 5 mg/0.5 mL subcutaneou s pen injector ADMINISTE R 5 MG UNDER THE SKIN EVERY 7 DAYS active Not Available Not Available No t Available Mounjaro 2.5 mg/0.5 mL subcutaneou s pen injector ADMINISTE R 2.5 MG UNDER THE SKIN EVERY 7 DAYS 12/15 completed Not Available Not Available Not Available Ozempic 0.25 mg or 0.5 mg (2 mg/3 mL) subcutaneou s pen injector INJECT 0.5 MG UNDER THE SKIN EVERY 7 DAYS 10/30 completed Not Available Not Available Not Available SpeedySwab COVID-19 and Flu kit DIRECTED 12/15 completed Not Available Not Available Not Available Vitals Date Recorded Body height Systolic blood pressure Diastolic blood pressure Provider Name and Address Organization Details Last Updated DateTime 09/15/2024 157.48 cm 135 mm[Hg] 81 mm[Hg] Lucille Prajapati [facility] 09/15/2024 17:06:05 Date Recorded Body height Body mass index (BMI) Body weight Systolic blood pressure Diastolic blood pressure Provider Name and Address Organization Details Last Updated DateTime 10/30/2024 157.48 cm 46.6 kg/m2 328062.0 5 g 118 mm[Hg] 85 mm[Hg] Kathy Wolfe [facility] 11:19:53 Date Recorded Body height Body mass index (BMI) Body weight Systolic blood pressure Diastolic blood pressure Provider Name and Address Organization Details Last Updated DateTime 12/15/2024 157.48 cm 45.5 kg/m2 303048.5 g 139 mm[Hg] 92 mm[Hg] Carole Bernstein [facility] 16:08:49 Social History Question Answer Notes LastModified by Organizat ion Details LastModified Time Tobacco Smoking Status Never Smoker Kathy ramírez, [facility] 06/09/2023 10:31:37 Do You Have An Advance Directive? No Information not available 01/04/2022 What Is Your Level Of Alcohol Consumption? None [email or web address] Information not available 08/29/2022 If You Are , What Was Your Level Of Alcohol Consumption Prior To ? Occasional [email or web address] Information not available 06/09/2023 Are You Blind Or Do You Have Difficulty Seeing? No Information not available 01/04/2022 What Is Your Level Of Caffeine Consumption? Occasional [email or web address] Information not available 06/12/2024 How Much Tobacco Do You Chew? None Information not available 01/04/2022 In The 14 Days Before Symptom Onset, Have You Had Close Contact With A Laboratory-confir med COVID-19 While That Case Was Ill? No Information not available 01/04/2022 In The 14 Days Before Symptom Onset, Have You Had Close Contact With A Person Who Is Under Investigation For COVID-19 While That Person Was Ill? No Information not available 01/04/2022 Have You Been To An Area Known To Be High Risk For COVID-19? No Information not available 01/04/2022 Are You Deaf Or Do You Have Serious Difficulty Hearing? No Information not available 01/04/2022 What Type Of Diet Are You Following? CARBOHYDRATE [email or web address] Information not available 06/12/2024 What Is The Highest Grade Or Level Of School You Have Completed Or The Highest Degree You Have Received? [id number] Information not available 01/04/2022 What Is Your Occupation? [employer] Information not available 01/04/2022 Are There Any Guns Present In Your Home? No Information not available 01/04/2022 Do You Use Protection During Sex? Always [email or web address] Information not available 06/09/2023 Do You Use Your Seat Belt Or Car Seat Routinely? Yes Information not available 01/04/2022 Do You Have Smoke And Carbon Monoxide Detectors In Your Home? Yes Information not available 01/04/2022 How Much Tobacco Do You Smoke? No Information not available 01/04/2022 Do You Feel Stressed (tense, Restless, Nervous, Or Anxious, Or Unable To Sleep At Night)? [id number] [email or web address] Information not available 06/09/2023 Do You Use Any Illicit Or Recreational Drugs? No Information not available 01/04/2022 Do You Use Sunscreen Routinely? No Information not available 01/04/2022 Have You Used IV Drugs? No Information not available 01/04/2022 Sex: Unknown Functional Status Question Answer Note LastModified by Organizat ion Details LastModified Time Do you have difficulty walking or climbing stairs? No [email or web address] Information not available 06/09/2023 Are you able to walk? [email or web address] Information not available 01/04/2022 Are you able to care for yourself? Yes [email or web address] Information not available 06/09/2023 Do you have difficulty dressing or bathing? No [email or web address] Information not available 06/09/2023 What is your exercise level? None [email or web address] Information not available 06/12/2024 Mental Status None recorded. Family History Relationship Description Onset Age of this Age Resolved Age Notes LastModified by Organization Details LastModified Time Maternal Grandmother Malignant tumor of breast Not available 2021 18:42:47 Maternal Grandmother Diabetes mellitus Not available 2021 18:43:21 Father Malignant tumor of colon Not available 2021 18:43:00 Father Diabetes mellitus Not available 2021 18:43:21 Maternal Grandfather Diabetes mellitus Not available 2021 18:43:21 Medical History Condition Response Allergies (Food, seasonal, environmental ) Y Other N Breast Cancer N Drug/Latex Allergies/Reactions Y Blood Transfusion N Dermatologic Disorders Y Lung Disease N Defects or Inherited Disease N Breast Problem N Gestational Diabetes Y Hematologic disorders N Anesthesia Complications N History of STI N Deep Vein Thrombosis N Polycystic ovary syndrome N Anxiety Disorder Y Autoimmune disease N Arthritis N Infertility N Polyps N Acid Reflux (GERD) N History of abnormal pap N Cancer N Stroke N Varicosities N Neurologic/Epilepsy Y Endometriosis N High Cholesterol Y Headaches Y Fibromyalgia N Kidney Disease N Heart Problems N Kidney or Bladder Problems N Thyroid Problems N GI Problems N Eating Disorder N Anemia N Art (IVF or FET) N Psychiatric Illness N Ovarian Cancer N Diabetes Y Pulmonary (TB, Asthma) N Hepatitis/Liver Disease N No Past Medical History N Eczema N Urinary Tract Infection N Abuse/Domestic Violence N Asthma Y Trauma/Violence N Depression/ depression N Heart Disease N Pre-Eclampsia Y Hypertension Y Osteoporosis N Thrombophilias N Gynecological History Statement/Question Response Date of Last Mammogram Date of LMP 10/29/2024 On BCP's at Conception? Y N Was last menstrual period normal Y STIs/STDs N HPV Vaccine Y Duration of Flow (days) 3 Current Control Method Implant Age at First Child 25 Date of control 03/14/2023 Date of Last Colonoscopy Frequency of Cycle (Q days) 24 Sexually Active? Y Date of DEXA bone scan Age of first menstrual cycle 17 Date of Last Pap Smear 06/14/2024 Sexual Problems? N Desired Control Method Implant LMP Approximate N Obstetrics History GPAL:G 3 P 2 0 1 2 Type Value Full Term 2 Spontaneous 1 Living 2 Total 3 Past Encounters Encounter ID Performer Location Encounter Start Date Encounter Closed Date Diagnosis/Indication Diagnosis SNOMED-CT Code Diagnosis ICD10 Code Diagnosis Note [id number] Nelson No MD [facility] [address] [address] 12/20/2021 11:48:43 12/20/2021 13:10:55 Visual disturbance 84270082 H53.9 Headache 94937691 R51.9 Abnormal u terine bleeding [id number] 9100 N93.9 This patient is 26-year-ol d female who presents for multiple problems. She reports vision changes and feeling weak in unsteady after carbohydra te consumptio n. She is concerned about diabetes. She has a strong family history and that gestationa l diabetes. She also reports headaches. She feels headaches may be associated with this. Is a tight squeezing around the head. There was maybe some light sensitivit y. But she does not report any phonophobi a and no prodrome. It is not pulsatile and frontal. We discussed contracept ion. We reviewed contracept krishna management in detail. She has had experience with multiple contracept krishna options is uncertain. She is going to consider her options airway agreed to laboratory evaluation . We also agreed to a 2 hour glucose tolerance test. We spent over 35 minutes face-to-fa ce. She will return 1 week. We discussed 3 complex problems. Contracept ion care management [id number] Z30.9 [id number] Nelson No MD [facility] [address] [address] 01/04/2022 15:39:40 01/07/2022 14:41:26 Contraception care management 610640493 Z30.9 Hyperlipidemia 35564065 E78.5 Syndrome o f carbohydrate intolerance 22983589 K90.49 this patient is a 26-year-ol d female presents for follow-up on laboratory evaluation . Sex hormones and diabetes testing were performed. She had concerns about her blood sugar. She reports neurologic symptoms after carbohydra te load. We discussed her results. She had a normal 2 hour glucose tolerance test. She does have some elevated cholestero l. We talked about those findings. She does have low vitamin- D. She is already being treated. Discussed contracept ion in detail. She is considerin g short-term contracept krishna option. We discussed the pill. We discussed the risks of the pill. She is going to hold off using any contracept ion at this time. She will contact us if she wants to start the pill. We spent over 40 minutes face-to-fa ce discussing Two complex issues. [id number] Nelson No MD [facility] [address] [address] 02/02/2022 11:18:19 02/04/2022 14:45:27 Obesity 006439553 E66.9 this patient is a 26-year-ol d female with class 3 obesity. We spent over an hour face-to-fa ce. We talked about energy consumptio n energy expenditur e is it relates to body compositio n. Talked about some ways of improving resting energy expenditur e her metabolism . We talked about exercise. We talked about diet. We talked about sleep in we reviewed her labs. She does have a mildly elevated LDL. She has low vitamin-D. She wants education on meals and meal prep. A, meal content. She has not required an EKG but she will get a evaluation for sleep study. She is going to have metabolic testing form of resting metabolic rate. She will see the dietitian. We will supplement vitamin-D and start phentermin e. She was given precaution s about phentermin e. [id number] Nelson No MD [facility] [address],[place] [address] 02/12/2022 09:31:50 02/13/2022 13:10:07 [id number] Nelson No MD [facility] [address],[place] [address] 02/19/2022 16:58:00 02/19/2022 17:52:10 Obesity 099510005 E66.9 this patient is a 26-year-ol d female presents for we management Follow-up. She has completed her evaluation . She has spoken with dietitian. She has got some helpful informatio n from the dietitian to eat with intention and appropriat e content. We spent over 20 minutes face-to-fa ce. More than 50% was counseling . Talked about the medication s in detail. We talked about all her options. Talked about the effectiven ess of each. We talked about the coverage of each. We checked on coverage of some of her medication s to the [employer] website. We agreed to continue to see coverage for the injectable s. She had a idiosyncra tic reaction to phentermin e with markedly increased heart rate and blood pressure. She had a panic attack At that time as well. She is going to check on more coverage and will get back together. She will contact me to tell me what she would like to some begin. We talked about Contrave in some detail. She is trying to get GLP 1 agonist covered. [id number] Nelson No MD [facility] [address],[place] [address] 03/12/2022 15:28:36 03/12/2022 17:08:02 Obesity 004415073 E66.9 This patient is a 26-year-ol d female presents for follow-up on weight management . She was able to start Ozempic. She is on the lowest dose of Ozempic. She will be taking steps to reach 0.5 mg per week. She is not noticing too much thus far. She is not noticing any early satiety or side effects. She is more active. She does not have a real exercise program but that is something she intends to work on. She does have a diet plan with the dietitian. She is not losing weight yet about is just started her medication s. She did have the event with phentermin e where she had reaction with elevated blood pressures in. Blood pressures have possibly been an issue. With a it is tender be normal elsewhere. Her primary care doctor knows about her blood pressure concerns. She will continue Ozempic. She will follow up in 4 weeks. [id number] Nelson No MD [facility] [address],[place] [address] 04/20/2022 10:12:48 04/22/2022 14:57:35 Obesity 563749871 E66.9 this patient is a 26-year-ol d female who presents for weight management follow-up. She has lost 6 lb over the last month. She is just was able to start her Ozempic. She is increasing dosage of Ozempic at intervals. She is feeling well. She was tolerating well. She has some reflux associated with the medication . Otherwise she is tolerating it well. She is taking omeprazole . We spent over 20 minutes face-to-fa ce. It was all counseling . We reviewed her goals. We reviewed exercise. We talked about energy consumptio n expenditur e. She is working with the dietitian. [id number] [facility] [address],[place] [address] 06/04/2022 09:24:02 06/04/2022 10:25:52 screening 738538233 Z36.87 [id number] Nelson No MD [facility] [address] [place] [address] 06/04/2022 09:26:41 06/04/2022 10:59:33 Carrier of cystic fibrosis gene mutation 251630842 Z14.1 Patent fredi tus arteriosus 65434987 Q25.0 Amenorrhea 84481686 N91. 2 this patient is a 26-year-ol d female presents for amenorrhea . She has positive test. Ultrasound reviewed today revealed an gestationa l sac with a yolk sac. Measuremen ts for this are consistent with a 5 week . At 5 week gestationa l age is also consistent with a last menstrual period. We will await a pole or embryo to measure before we assigned dates at the next visit. We discussed her medical history. She is a carrier cystic fibrosis and has a family history of patent ductus arteriosus . We discussed precaution s in pertain to diet, exercise, medication s. We spent more than 35 minutes face-to-fa ce. More than 50% was counseling . Discussed early care in detail [id number] Misty Buckley [facility] [address],[place] [address] 06/18/2022 09:17:07 06/18/2022 10:27:53 Uncertain viability of [id number] O36.80X0 Z3A.01 [id number] Misty Buckley [facility] [address],[place] [address] 07/16/2022 09:22:03 07/16/2022 14:18:14 screening 533270118 Z36.82 [id number] Nelson No MD [facility] [address],[place] [address] 07/16/2022 09:22:31 07/17/2022 16:38:29 Routine care 557964353 Z34.91 Vaginitis 36268368 N76.0 [id number] Nelson No MD [facility] [address],[place] [address] 08/15/2022 09:30:34 08/15/2022 10:23:47 Vulvovaginitis 41699390 N76.0 Headache 21554490 R51.9 [id number] Dorothea Alejandro [facility] [address],[place] [address] 08/29/2022 09:41:07 08/29/2022 10:46:27 Dysuria 76509294 R30.0 Urinary tr act infectious disease 58539420 N39.0 Increase water and avoid caffeine. Pt states she has taken keflex in the past without any allergic reaction. We did discuss risks and precaution s to take. If any s/s of allergic reaction she will take benadryl and present to ER. Vaginitis 74788729 N76.0 Discussed use of mild soap like dove or ivory, cotton underwear w/out dye, hypoallerg enic detergent, wipe from front to back, avoid tub baths, keep perineum clean and dry, d/c use of baby wipes. Encouraged daily intake of yogurt or womens health probiotic. Internal and external affirm collected along with STD screen. [id number] Jaz Ordoñez [facility] [address],[place] [address] 09/10/2022 15:19:13 09/10/2022 16:45:09 screening for malformation 882126401 Z36.3 [id number] [facility] [address],[place] [address] 09/10/2022 15:20:06 09/11/2022 17:43:11 Acute abscess of skin and/or subcutaneous tissue 167608160 L02.91 Urinary symptoms 4792351 08 R39.9 Vaginitis 58451269 N76.0 [id number] [facility] [address],[place] [address] 09/12/2022 16:56:45 09/13/2022 14:33:42 Acute abscess of skin and/or subcutaneous tissue 717177017 L02.91 [id number] Mireya Kirby MD [facility] [address],[place] [address] 09/18/2022 15:18:42 09/20/2022 14:46:02 Abscess of left thigh 1699277455 6508001 L02.416 [id number] Misty Buckley [facility] [address] [place] [address] 10/08/2022 10:58:21 10/08/2022 13:57:54 AND/OR placental disorder affecting management of mother 89510361 O36.92X0 U07.1 Z3A.23 [id number] Dorothea Allen [facility] [address],[place] [address] 10/08/2022 10:58:40 10/09/2022 12:18:53 Routine care 866518081 Z34.92 [id number] [facility] [address],[place] [address] 10/17/2022 09:35:57 10/17/2022 10:23:59 Routine care 530270701 Z34.92 [id number] [facility] [address],[place] [address] 11/04/2022 11:48:30 11/04/2022 12:42:45 Excessive growth affecting management of mother 92776706 O36.62X0 Z3A.27 [id number] [facility] [address],[place] [address] 11/04/2022 11:48:46 11/04/2022 18:40:11 Routine care 924773380 Z34.92 [id number] [facility] [address],[place] [address] 11/21/2022 09:52:05 11/22/2022 10:13:46 Routine care 101514758 Z34.92 [id number] Misty Buckley [facility] [address],[place] [address] 12/03/2022 09:35:50 12/03/2022 11:11:29 Gestational diabetes mellitus class A2 80828141 O24.414 O43.90 O99.213 Z86.16 Z3A.31 [id number] [facility] [address],[place] [address] 12/03/2022 09:37:05 12/04/2022 10:23:58 Routine care 289523488 Z34.92 [id number] Juliana Swanson [facility] [address],[place] [address] 12/10/2022 09:32:45 12/10/2022 10:58:55 Gestational diabetes mellitus 14250215 O24.419 [id number] Misty Buckley [facility] [address],[place] [address] 12/10/2022 09:32:59 12/10/2022 10:21:09 Gestational diabetes mellitus class A1 46719136 O24.410 Z3A.32 [id number] Dorothea Allen [facility] [address],[place] [address] 12/10/2022 09:33:14 12/11/2022 17:30:11 Routine care 360040044 Z34.92 [id number] [facility] [address],[place] [address] 12/13/2022 09:29:21 12/13/2022 10:29:46 Gestational diabetes mellitus 46344112 O24.419 [id number] Jaz Ordoñez [facility] [address],[place] [address] 12/17/2022 09:37:09 12/17/2022 10:35:34 Gestational diabetes mellitus 81215606 O24.414 O99.213 Z3A.33 [id number] [facility] [address],[place] [address] 12/17/2022 09:37:34 12/17/2022 11:08:59 Gestational diabetes mellitus 46824530 O24.414 O99.213 Z3A.33 [id number] Mireya Kirby MD [facility] [address],[place] [address] 12/17/2022 09:37:50 12/17/2022 11:08:48 Routine care 533730563 Z34.83 Gestationa l diabetes mellitus 13625652 O24.414 O99.213 Z3A.33 [id number] Talita Johnson [facility] [address],[place] [address] 12/20/2022 09:36:37 12/20/2022 10:11:40 Gestational diabetes mellitus 82721691 O24.414 O99.213 Z3A.33 [id number] [facility] [address],[place] [address] 12/24/2022 09:39:52 12/24/2022 10:48:34 Gestational diabetes mellitus 12023315 O24.414 O99.213 Z3A.33 [id number] [facility] [address],[place] [address] 12/24/2022 09:40:52 12/24/2022 10:14:45 Gestational diabetes mellitus 98118714 O24.414 Z3A.34 [id number] [facility] [address],[place] [address] 12/24/2022 09:41:16 12/24/2022 11:51:30 Routine care 718593702 Z34.92 [id number] [facility] [address],[place] [address] 12/27/2022 09:36:58 12/27/2022 12:17:15 Gestational diabetes mellitus 41090124 O24.414 Z3A.34 [id number] [facility] [address],[place] [address] 12/31/2022 09:38:37 12/31/2022 11:52:00 Gestational diabetes mellitus 65326080 O24.414 O99.213 Z3A.35 [id number] Kathy Wolfe [facility] [address],[place] [address] 12/31/2022 09:39:14 12/31/2022 11:38:25 Gestational diabetes mellitus 96169222 O24.419 [id number] Talita Johnson [facility] [address],[place] [address] 01/03/2023 09:33:55 01/03/2023 10:27:09 Gestational diabetes mellitus class A2 97066454 O24.414 [id number] Mireya Kirby MD [facility] [address],[place] [address] 01/03/2023 09:34:17 01/03/2023 11:42:38 Gestational diabetes mellitus 25997972 O24.414 O99.213 Z3A.35 Shoulder d ystocia with problem 497245223 O66.0 [id number] Misty Buckley [facility] [address],[place] [address] 01/07/2023 11:25:00 01/07/2023 12:36:54 Gestational diabetes mellitus class A2 08699362 O24.414 O99.213 Z3A.36 [id number] [facility] [address],[place] [address] 01/07/2023 11:27:35 01/07/2023 13:54:43 Gestational diabetes mellitus 05566820 O24.414 O99.213 Z3A.35 [id number] [facility] [address],[place] [address] 01/10/2023 09:29:34 01/10/2023 10:13:51 Gestational diabetes mellitus 47421591 O24.414 O99.213 Z3A.35 [id number] Mireya Kirby MD [facility] [address],[place] [address] 01/10/2023 09:29:57 01/15/2023 14:52:39 Gestational diabetes mellitus class A2 57141103 O24.414 O99.213 Z3A.37 [id number] [facility] [address],[place] [address] 01/14/2023 09:39:24 01/14/2023 11:01:48 Gestational diabetes mellitus class A2 11555833 O24.414 O99.213 Z3A.37 [id number] [facility] [address],[place] [address] 01/14/2023 09:39:40 01/14/2023 10:59:47 Gestational diabetes mellitus 02114799 O24.414 O99.213 Z3A.35 [id number] Mireya Kirby MD [facility] [address],[place] [address] 01/14/2023 09:39:52 01/14/2023 15:23:40 Gestational diabetes mellitus class A2 28943102 O24.414 O99.213 Z3A.37 [id number] [facility] [address],[place] [address] 01/17/2023 09:24:00 01/17/2023 12:36:47 Gestational diabetes mellitus 04394168 O24.414 O99.213 Z3A.35 [id number] [facility] [address],[place] [address] 01/21/2023 09:19:51 01/21/2023 10:36:45 Gestational diabetes mellitus 00189557 O24.414 O99.213 Z86.16 Z3A.38 [id number] [facility] [address],[place] [address] 01/21/2023 09:20:08 01/21/2023 10:31:38 Gestational diabetes mellitus 60762376 O24.414 O99.213 Z86.16 Z3A.38 [id number] [facility] [address],[place] [address] 01/24/2023 09:33:07 01/24/2023 10:12:01 Gestational diabetes mellitus class A2 18149643 O24.414 O99.213 Z3A.37 [id number] Mireya Kirby MD [facility] [address],[place] [address] 01/24/2023 09:33:27 01/24/2023 10:35:40 Gestational diabetes mellitus 69637520 O24.414 O99.213 Z86.16 Z3A.38 Shoulder d ystocia with problem 381325326 O66.0 [id number] Mrieya Kirby MD [facility] [address],[place] [address] 02/03/2023 11:10:16 02/03/2023 11:47:22 Postoperative visit 035059229 Z09 Candidal intertrigo 2661 98416 B37.2 [id number] Mireya Kirby MD [facility] [address],[place] [address] 03/03/2023 11:31:02 03/05/2023 14:53:40 care 957728771 Z39.2 [id number] Mireya Kirby MD [facility] [address],[place] [address] 03/07/2023 09:58:00 03/07/2023 10:36:44 Contraception care management 503748971 Z30.9 Implantati on of subcutaneous contraceptive 692865311 Z30.9 [id number] Mireya Kirby MD [facility] [address],[place] [address] 03/18/2023 10:13:42 03/18/2023 10:35:25 Pre-eclampsia 209818985 O14.20 [id number] Mireya Kirby MD [facility] [address],[place] [address] 04/01/2023 12:26:47 04/01/2023 13:15:31 Dysuria 13572282 R30.0 Candidal vulvovaginitis 11276109 B37.31 Liver enzy mes level above reference range 513495149 R74.01 [id number] Mireya Kirby MD [facility] [address],[place] [address] 04/18/2023 12:29:18 04/18/2023 13:41:37 Abdominal mass 539814341 R19.00 Past pregn cande history of section 831974520 Z98.890 Pain on ab dominal wall movement 186056462 R10.9 [id number] FRANCIS Samaniego [facility] [address],[place] [address] 06/09/2023 10:09:43 06/09/2023 11:53:35 Gynecologic examination 32158592 Z01.419 WWEBC - nexplanon, inserted 03/07/2023 iscussed common to have irregular/ unschedule d bleeding in the first few months following insertion, which may regulate 3-4 months post insertion. We discussed alternativ e methods. Labs ordered.bela ramirez updatedSTI testing declinedsu spect yeast infection, rx sent, r/b/a reviewedUT D with PCP for routine labsBP precaution s reviewed, encouraged continue f/u with PCP Take Calcium with Vitamin D daily if not receiving in daily diet.It is strongly advised to have an annual flu shot and up can obtain at most pharmacies . If you have not had a TDap shot in the last 10 years you should obtain one as well.Fitz ssed with patient & provided with informatio n regarding Gardisil vaccine to prevent the 4 strains for HPV that cause cervical cancer if under age 26.Encoura ge safe sexual practices, to use condoms and limit partners if not already in a monogamous relationsh ip.Do monthly self breast exams.Enga ge in daily exercise of low impact aerobic exercise 45-60 minutes 4-5 times weekly. Avoid tobacco and illicit drugs as well as using moderation with alcohol intake less than 1-2 8 oz beverages daily. This lifestyle behavior pattern will lead to less health conditions and longer life span. If BMI greater than 25 weight watchers or dietary consult advised.Bela mendiola received above instructio ns, and questions have been answered. If you have any questions please call or respond to this email.Chaya navarrete was made aware of the patient portal and may obtain a paper copy of today's plan if desired. Irregular periods 787344 07 N92.6 Contracept ion care management 468956491 Z30.9 Vaginitis 98518527 N76.0 [id number] Nelson No MD [facility] [address],[facility] [place] [address] 07/28/2023 16:57:15 07/29/2023 09:04:46 Contraception care management 794304532 Z30.9 27-year-ol d female who has concern about her Nexplanon. She is concerned about it breaking. Nexplanon was palpated. It arcs and bends normally. It is flexible. It is placed normally. Patient was given reassuranc e. She will follow-up as needed. [id number] Nelson No MD [facility] [address],[facility] [place] [address] 06/12/2024 11:29:05 06/12/2024 11:57:33 Gynecologic examination 13509700 Z01.419 Annual gynecologi miguel exam performed. Patient will come back in a year unless there are new symptoms. Suggest Calcium with Vitamin D if not eating in diet. Patient advised to get annual flu shot. Recommend yearly physicals and preform monthly breast exams. Genetic testing is available for patients with family history of cancer. Engage in safe sexual practices, use condoms. Encouraged to have daily exercise. Avoid tobacco and illicit drugs, moderation of alcohol. If BMI greater than 25 dietary consult advised. If you have any questions please call or email. Pap smear- done laboratory evaluation - done [id number] PEYMAN AVALOS NP [facility] [address] [address] 09/01/2024 17:08:53 09/01/2024 18:00:31 Irregular periods 25084487 N92.6 Discussed that irregular cycles can sometimes occur with Nexplanon. Recommende d that patient call office if prolonged bleeding continues as estradiol 2 mg PO daily x 14 days can be prescribed to help stop the bleeding.T VUS ordered to evaluate for endometria l hyperplasi a/abnormal ities contributi ng to prolonged bleeding. Pain in pelvis 90089266 R10.2 TVUS ordered to evaluate for causes of right-side d pelvic pain. Notable right-side d tenderness upon bimanual exam.F/U with pending results.Re quested CT [facility]. [id number] [facility] [address] [address] 09/08/2024 17:33:10 09/08/2024 18:13:14 Irregular periods 49277740 N92.6 R10.2 [id number] Nelson No MD [facility] [address] [address] 09/15/2024 16:46:48 09/16/2024 06:49:00 Abnormal uterine bleeding 7127814893 9100 N93.9 this patient is a 28-year-ol d female with abnormal uterine bleeding. She has a Nexplanon inserted. We talked about treatment of bleeding with the Nexplanon. We talked about estrogen add back therapy to remedy bleeding intermitte ntly. She agreed to that. We talked about her ovarian cyst and her ultrasound results. We talked about etiology, natural history, treatment of ovarian cyst. She has a 4-1/2 cm ovarian cyst on the left side. We will repeat ultrasound in 6 weeks. She was given precaution s on Torsion and worsening pain. I spent over 20 minutes on her care in total. [id number] [facility] [address],[place] [address] 10/27/2024 13:59:15 10/27/2024 14:36:14 Cyst of left ovary 9289385425 1107803 N83.202 R10.2 N93.9 [id number] Nelson No MD [facility] [address],[place] [address] 10/30/2024 10:44:39 11/01/2024 10:41:19 Pain in pelvis 26162506 R10.2 Cyst of ovary 83956786 N 83.209 This patient is a 29-year-ol d female who presents for follow-up on pelvic pain and ovarian cyst. She had an ultrasound . We reviewed those results. She has a persistent ovarian cyst on the left. It is now 3 cm. It was previously 4-1/2 cm. It grow smaller. We will continue to observe. We will repeat ultrasound in 6 weeks and discuss the results. I spent over 20 minutes on her care in total. [id number] [facility] [address],[place] [address] 12/08/2024 14:20:08 12/08/2024 14:56:08 Cyst of left ovary 6095452032 5361631 N83.202 R10.2 N93.9 [id number] Nelson No MD [facility] [address],[place] [address] 12/15/2024 16:02:17 12/15/2024 16:52:49 Cyst of left ovary 1866875179 5032188 N83.202 patient is a 29-year-ol d who female presents for follow-up on ovarian cyst and ultrasound . Her ultrasound showed a an ovarian cyst of increasing size. She continues to have pain. The ovarian cyst has persisted for many months. We agreed to perform laparoscop ic left ovarian cystectomy . We talked about the procedure. The patient understand s the procedure. The procedure was described to the patient in great detail. the patient also understand s the risks. The risks were also explained in detail. She understand s that injuries May occur during surgery. She understand s these injuries can result in hospitaliz ation, more surgery, and severe illness. She understand s there is risk of hemorrhage and infection. Health Concerns Section Related Observation LastModified by Organization Detai ls LastModified Time None Recorded Concern Status LastModified by Organization Details LastModified Time None Recorded Advance Directives Directive N: Payers Encounter Date Sequence Insurance Name Policy Number Policy Real Covered Member ID Real Member ID Guarantor Name 09/15/2024 1 [facility] [id number] Louis Zaida [id number] Violet L Zaida 09/15/2024 2 [place] [facility] Violet L Joe [id number] Violet L Zaida 10/27/2024 1 [facility] [id number] Louis Zaida [id number] Violet L Zaida 10/27/2024 2 [place] [facility] Violet L Joe [id number] Violet L Zaida 10/30/2024 1 [facility] [id number] Louis Zaida [id number] Violet L Zaida 10/30/2024 2 [place] [facility] Violet L Joe [id number] Violet L Zaida 12/08/2024 1 [facility] [id number] Louis Zaida [id number] Violet L Zaida 12/08/2024 2 [place] [facility] Violet L Joe [id number] Violet L Zaida 12/15/2024 1 [facility] [id number] Louis Zaida [id number] Violet L Zaida 12/15/2024 2 [place] [facility] Violet L Joe [id number] Violet L Zaida Notes Date Note Type Note Provider Name and Address Organization Details Recorded Time 09/15/2024 text/html this patient is a 28-year-old female with abnormal uterine bleeding. She has a Nexplanon inserted. We talked about treatment of bleeding with the Nexplanon. We talked about estrogen add back therapy to remedy bleeding intermittently. She agreed to that. We talked about her ovarian cyst and her ultrasound results. We talked about etiology, natural history, treatment of ovarian cyst. She has a 4-1/2 cm ovarian cyst on the left side. We will repeat ultrasound in 6 weeks. She was given precautions on Torsion and worsening pain. I spent over 20 minutes on her care in total. Nelson No MD [address], [place], [address], [facility] 09/15/2024 17:56:46 10/30/2024 text/html This patient is a 29-year-old female who presents for follow-up on pelvic pain and ovarian cyst. She had an ultrasound. We reviewed those results. She has a persistent ovarian cyst on the left. It is now 3 cm. It was previously 4-1/2 cm. It grow smaller. We will continue to observe. We will repeat ultrasound in 6 weeks and discuss the results. I spent over 20 minutes on her care in total. Nelson No MD [address], [place], [address], [facility] 10/30/2024 13:21:57 12/15/2024 text/html patient is a 29-year-old who female presents for follow-up on ovarian cyst and ultrasound. Her ultrasound showed a an ovarian cyst of increasing size. She continues to have pain. The ovarian cyst has persisted for many months. We agreed to perform laparoscopic left ovarian cystectomy. We talked about the procedure. The patient understands the procedure. The procedure was described to the patient in great detail. the patient also understands the risks. The risks were also explained in detail. She understands that injuries May occur during surgery. She understands these injuries can result in hospitalization, more surgery, and severe illness. She understands there is risk of hemorrhage and infection. Nelson No MD [address], [place], [address], [facility] 12/15/2024 16:52:10 OBGyn Episode Ob Episode Information Episode Created Date Number of Fetuses Patient Bloodtype Patient rh Status Prepregnancy Weight lbs Domestic Partner Domestic Partner Phone Father Name Direct Marketing Representative Status 07/16/20 22 1 O Positive Louis Cerda CLOSED Fetus Data First Name Last Name Admitted to NICU Weight (g) Sex Living Outcome Pediatric Complications Fetus ID Race Codes Race Delivery Type Paul richard [phone] M true Full Term [id number] Primary Problems Problem Notes family h/o patent ductus wit h males12/24/22- hx shoulder dystocia with brachial plexus injury Problem Name Start Date End Date Resolution Snomed Code Not e Headache 50604462 chronic Pre-eclampsia 420706617 post p artum, started LD ASA Nonreassuring status [id number] History. Delive red at 37 - induction. Gestational diabetes mellitus [id number] 01/21 - u NPH @ HS.h/o GDMa2. testing Cystic fibrosis [id number] Flores ier - FOB - neg. Obesity [id number] Class 3 - nsts at 34 wks. SARS-CoV-2 07/27/2022 [id number] ASA & se rial growth Vitamin D deficiency 95229822 November - June range 15-16 Rpt Aug/SEP Disorder of placenta [id number] Bilobed Shoulder dystocia - delivered [id number] 12/24/22- hx shou lder dystocia with brachial plexus injury SECTION Asher Calculation Initial Asher Date Initial Exam Date Initial Exam Provider Initial Ultrasound Date Last Menstrual Period Date Ultra Sound Weeks Gestation 02/01/2023 07/16/2022 07/16/2022 04/29/2022 11 Eighteen To Twenty Week Asher Update Ultra Sound Date Fundal Height At Umbil Quickening Date Ultra Sound Latest Weeks Gestation Final Asher Confirmed By Final Asher Confirmed Date Final Asher Date Ultra Sound Latest Days Gestation 0 [email or web address] 07/16/2022 02/02/20 23 0 Pre-geo Flowsheet Flowsheet Date 07/16/2022 Oates Score Blood Edema Fundus Height Fundus Units Glucose Ketones Leukocytes Nitrite Labor Signs Protein Cervic Dilation Cervic Effacement Cervic Station Type Weight in lbs Pre/Post Dialysis Refused BP Diastolic BP Location Tested BP Systolic BP Type Fetus Heart Rate Present Fetus Movement Comments Flowsheet Date 07/16/2022 Oates Score Blood Edema Fundus Height Fundus Units Glucose Ketones Leukocytes Nitrite Labor Signs Protein Cervic Dilation Cervic Effacement Cervic Station 12 Type Weight in lbs Pre/Post Dialysis Refused Weight 253.851162366970 BP Diastolic BP Location Tested BP Systolic BP Type 74 R arm 118 sitting Fetus Heart Rate Present A 165 Fetus Movement Comments this patient is a 26-year-ol d 3 para 1011 at 12 weeks gestation. She presents for initial care. she has positive cystic fibrosis carrier status with a negative father the baby. She has a history of preeclampsia. She was delivered at 37 weeks for distress or nonreassuring heart tones, possibly gestational hypertension. She has gestational diabetes. Needs early screening. Uncertain if she had a Miscarriage or not. Please confirm. she has chronic headache. Talked about care in detail. She is vaccinated for COVID. She was given vaccine recommendations in total. Flowsheet Date 08/15/2022 Oates Score Blood Edema Fundus Height Fundus Units Glucose Ketones Leukocytes Nitrite Labor Signs Protein Cervic Dilation Cervic Effacement Cervic Station Type Weight in lbs Pre/Post Dialysis Refused Weight 255.651534651256 BP Diastolic BP Location Tested BP Systolic BP Type 80 R arm 119 sitting Fetus Heart Rate Present A 145 Fetus Movement Comments vulvar irritation, to Difluc an and vulvar cream,For headache also with Fioricet, failed migraine tension Excedrin Flowsheet Date 08/29/2022 Oates Score Blood Edema Fundus Height Fundus Units Glucose Ketones Leukocytes Nitrite Labor Signs Protein Cervic Dilation Cervic Effacement Cervic Station neg none none trace Type Weight in lbs Pre/Post Dialysis Refused Weight 253.238664542729 BP Diastolic BP Location Tested BP Systolic BP Type 74 116 Fetus Heart Rate Present A 147 Fetus Movement A Yes Comments patient is having stinging p ain and burning with intercourse.C/O pain x 1 month. No itching. Burning/stinging around urethra after intercourse and after urination. No flank pain or sp tenderness. See Assessment/Plan. Flowsheet Date 09/10/2022 Oates Score Blood Edema Fundus Height Fundus Units Glucose Ketones Leukocytes Nitrite Labor Signs Protein Cervic Dilation Cervic Effacement Cervic Station Type Weight in lbs Pre/Post Dialysis Refused BP Diastolic BP Location Tested BP Systolic BP Type Fetus Heart Rate Present Fetus Movement Comments Flowsheet Date 09/10/2022 Oates Score Blood Edema Fundus Height Fundus Units Glucose Ketones Leukocytes Nitrite Labor Signs Protein Cervic Dilation Cervic Effacement Cervic Station none Type Weight in lbs Pre/Post Dialysis Refused Weight 257.071366227324 BP Diastolic BP Location Tested BP Systolic BP Type 76 R arm 118 sitting Fetus Heart Rate Present Fetus Movement A Yes Comments Large red area on left leg. Measures 7x12cm with a 2cm firm area in the center. Started out small and significantly increased overnight. Is uncomfortable when touched but not painful. I was able to get some fluid to culture. Dr Kirby in to evaluate. Plan to treat with Bactrim DS while awaiting culture. willams doing well. Early gtt today. Baseline anatomy today. Bilobed placenta. Will await recommendations. Flowsheet Date 09/12/2022 Oates Score Blood Edema Fundus Height Fundus Units Glucose Ketones Leukocytes Nitrite Labor Signs Protein Cervic Dilation Cervic Effacement Cervic Station Type Weight in lbs Pre/Post Dialysis Refused Weight 256.688718973219 BP Diastolic BP Location Tested BP Systolic BP Type 85 126 Fetus Heart Rate Present Fetus Movement Comments Significant improvement. Les s than half the size. Small firm area in the middle. No active draining. Pt states it definitely feels better. Instructed to continue antibiotics and keep clean and dry. Reminded about hand hygiene. Pt verbalized understanding. Flowsheet Date 09/18/2022 Oates Score Blood Edema Fundus Height Fundus Units Glucose Ketones Leukocytes Nitrite Labor Signs Protein Cervic Dilation Cervic Effacement Cervic Station Type Weight in lbs Pre/Post Dialysis Refused BP Diastolic BP Location Tested BP Systolic BP Type Fetus Heart Rate Present Fetus Movement Comments thigh cellulitis improved a lot, no redness around, but still soft area in middle with hard around. see I and D note. Flowsheet Date 10/08/2022 Oates Score Blood Edema Fundus Height Fundus Units Glucose Ketones Leukocytes Nitrite Labor Signs Protein Cervic Dilation Cervic Effacement Cervic Station Type Weight in lbs Pre/Post Dialysis Refused BP Diastolic BP Location Tested BP Systolic BP Type Fetus Heart Rate Present Fetus Movement Comments Flowsheet Date 10/08/2022 Oates Score Blood Edema Fundus Height Fundus Units Glucose Ketones Leukocytes Nitrite Labor Signs Protein Cervic Dilation Cervic Effacement Cervic Station neg none none trace Type Weight in lbs Pre/Post Dialysis Refused Weight 158.100548481917 BP Diastolic BP Location Tested BP Systolic BP Type 66 103 Fetus Heart Rate Present Fetus Movement A Yes Comments Doing well. Growth ultrasoun d today. Plan another gtt at 28 weeks. Flowsheet Date 10/17/2022 Oates Score Blood Edema Fundus Height Fundus Units Glucose Ketones Leukocytes Nitrite Labor Signs Protein Cervic Dilation Cervic Effacement Cervic Station neg none 26 none trace Type Weight in lbs Pre/Post Dialysis Refused Weight 255.196810929982 BP Diastolic BP Location Tested BP Systolic BP Type 62 129 Fetus Heart Rate Present A 149 Fetus Movement A Yes Comments Follow up from L&D upper abd discomfort after eating. Doing better. Has been taking pepcid and has significantly improved acid reflux up high and stomach discomfort. Not resolved but is improved. Will continue to monitor. Did have severe GERD with last . Discussed treatment options. Will continue with pepcid and if she does not have continued improvement we could consider other options. Flowsheet Date 11/04/2022 Oates Score Blood Edema Fundus Height Fundus Units Glucose Ketones Leukocytes Nitrite Labor Signs Protein Cervic Dilation Cervic Effacement Cervic Station Type Weight in lbs Pre/Post Dialysis Refused BP Diastolic BP Location Tested BP Systolic BP Type Fetus Heart Rate Present Fetus Movement Comments Flowsheet Date 11/04/2022 Oates Score Blood Edema Fundus Height Fundus Units Glucose Ketones Leukocytes Nitrite Labor Signs Protein Cervic Dilation Cervic Effacement Cervic Station neg none none trace Type Weight in lbs Pre/Post Dialysis Refused Weight 257.014756058650 BP Diastolic BP Location Tested BP Systolic BP Type 74 114 Fetus Heart Rate Present Fetus Movement A Yes Comments Doing well. GERD resolved wi th pepcid use. Growth ultrasound normal today. GTT today. Encouraged tdap and covid booster. Flowsheet Date 11/21/2022 Oates Score Blood Edema Fundus Height Fundus Units Glucose Ketones Leukocytes Nitrite Labor Signs Protein Cervic Dilation Cervic Effacement Cervic Station neg trace 31 none trace Type Weight in lbs Pre/Post Dialysis Refused Weight 262.787022089619 BP Diastolic BP Location Tested BP Systolic BP Type 70 104 Fetus Heart Rate Present A 146 Fetus Movement A Yes Comments Doing ok. Does have concerns about low blood pressure, dizziness, and low energy. 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 Will check tsh. Having vaginal discomfort/irritation with intercourse. Irritation at introitus. Swabs collected. Irritation noted. Otherwise, visual exam normal. Vulvar care guidelines given. Pt stopped up at front end manager after seeing sectional belt mold assembler today and she recommended that pt check her blood sugars as well with all her symptoms going on. Pt would like to start checking BS and needs testing supplies called out. Supplies sent and pt instructed to check BS QID and document levels and bring in to next appt. To call us if she has multiple elevated levels next week. Pt verbalized understanding. LUIS servin Flowsheet Date 12/03/2022 Oates Score Blood Edema Fundus Height Fundus Units Glucose Ketones Leukocytes Nitrite Labor Signs Protein Cervic Dilation Cervic Effacement Cervic Station Type Weight in lbs Pre/Post Dialysis Refused BP Diastolic BP Location Tested BP Systolic BP Type Fetus Heart Rate Present Fetus Movement Comments Flowsheet Date 12/03/2022 Oates Score Blood Edema Fundus Height Fundus Units Glucose Ketones Leukocytes Nitrite Labor Signs Protein Cervic Dilation Cervic Effacement Cervic Station neg trace none trace Type Weight in lbs Pre/Post Dialysis Refused Weight 262.074226549692 BP Diastolic BP Location Tested BP Systolic BP Type 75 107 Fetus Heart Rate Present Fetus Movement A Yes Comments Doing well. Rare contraction s. Growth ultrasound today in 78% and breech. Discussed positioning to encouraged vertex. Blood sugars good. Flowsheet Date 12/10/2022 Oates Score Blood Edema Fundus Height Fundus Units Glucose Ketones Leukocytes Nitrite Labor Signs Protein Cervic Dilation Cervic Effacement Cervic Station Type Weight in lbs Pre/Post Dialysis Refused BP Diastolic BP Location Tested BP Systolic BP Type Fetus Heart Rate Present Fetus Movement Comments Flowsheet Date 12/10/2022 Oates Score Blood Edema Fundus Height Fundus Units Glucose Ketones Leukocytes Nitrite Labor Signs Protein Cervic Dilation Cervic Effacement Cervic Station Type Weight in lbs Pre/Post Dialysis Refused BP Diastolic BP Location Tested BP Systolic BP Type Fetus Heart Rate Present Fetus Movement Comments Flowsheet Date 12/10/2022 Oates Score Blood Edema Fundus Height Fundus Units Glucose Ketones Leukocytes Nitrite Labor Signs Protein Cervic Dilation Cervic Effacement Cervic Station neg trace none trace Type Weight in lbs Pre/Post Dialysis Refused Weight 263.426509010042 BP Diastolic BP Location Tested BP Systolic BP Type 74 119 Fetus Heart Rate Present Fetus Movement A Yes Comments Doing well. Blood sugars all normal. testing today. Occasional contractions. PTL precautions given. Vaginal symptoms resolved. Flowsheet Date 12/13/2022 Oates Score Blood Edema Fundus Height Fundus Units Glucose Ketones Leukocytes Nitrite Labor Signs Protein Cervic Dilation Cervic Effacement Cervic Station Type Weight in lbs Pre/Post Dialysis Refused BP Diastolic BP Location Tested BP Systolic BP Type Fetus Heart Rate Present Fetus Movement Comments Flowsheet Date 12/17/2022 Oates Score Blood Edema Fundus Height Fundus Units Glucose Ketones Leukocytes Nitrite Labor Signs Protein Cervic Dilation Cervic Effacement Cervic Station Type Weight in lbs Pre/Post Dialysis Refused BP Diastolic BP Location Tested BP Systolic BP Type Fetus Heart Rate Present Fetus Movement Comments Flowsheet Date 12/17/2022 Oates Score Blood Edema Fundus Height Fundus Units Glucose Ketones Leukocytes Nitrite Labor Signs Protein Cervic Dilation Cervic Effacement Cervic Station Type Weight in lbs Pre/Post Dialysis Refused BP Diastolic BP Location Tested BP Systolic BP Type Fetus Heart Rate Present Fetus Movement Comments Flowsheet Date 12/17/2022 Oates Score Blood Edema Fundus Height Fundus Units Glucose Ketones Leukocytes Nitrite Labor Signs Protein Cervic Dilation Cervic Effacement Cervic Station neg trace none trace Type Weight in lbs Pre/Post Dialysis Refused Weight 263.174082788518 BP Diastolic BP Location Tested BP Systolic BP Type 66 105 Fetus Heart Rate Present A 160 Fetus Movement A Yes Comments Doing well. Vertex now. BPP 8/8. BS godd. 1 pp of 142, 1 fasting of 96. Dinners are mostly borderline, states she eats very late. Encouraged to have healthy snack earlier and smaller dinner then. Otherwise may need short acting insulin with dinner. Flowsheet Date 12/20/2022 Oates Score Blood Edema Fundus Height Fundus Units Glucose Ketones Leukocytes Nitrite Labor Signs Protein Cervic Dilation Cervic Effacement Cervic Station Type Weight in lbs Pre/Post Dialysis Refused BP Diastolic BP Location Tested BP Systolic BP Type 80 116 Fetus Heart Rate Present Fetus Movement Comments Flowsheet Date 12/24/2022 Oates Score Blood Edema Fundus Height Fundus Units Glucose Ketones Leukocytes Nitrite Labor Signs Protein Cervic Dilation Cervic Effacement Cervic Station Type Weight in lbs Pre/Post Dialysis Refused BP Diastolic BP Location Tested BP Systolic BP Type Fetus Heart Rate Present Fetus Movement Comments Flowsheet Date 12/24/2022 Oates Score Blood Edema Fundus Height Fundus Units Glucose Ketones Leukocytes Nitrite Labor Signs Protein Cervic Dilation Cervic Effacement Cervic Station Type Weight in lbs Pre/Post Dialysis Refused BP Diastolic BP Location Tested BP Systolic BP Type Fetus Heart Rate Present Fetus Movement Comments Flowsheet Date 12/24/2022 Oates Score Blood Edema Fundus Height Fundus Units Glucose Ketones Leukocytes Nitrite Labor Signs Protein Cervic Dilation Cervic Effacement Cervic Station neg none none trace Type Weight in lbs Pre/Post Dialysis Refused Weight 263.983842859509 BP Diastolic BP Location Tested BP Systolic BP Type 74 109 Fetus Heart Rate Present Fetus Movement A Yes Comments patient is having some back pain and cramping. reviewed precautions , seeing chiropractor. reviewed bs log increase to 8 units hs, pt informed me of hx of shoulder dystocia with brachial plexus injury, rec cesrean section will discuss with md at next visitcurrently has strep taking antibiotics Flowsheet Date 12/27/2022 Oates Score Blood Edema Fundus Height Fundus Units Glucose Ketones Leukocytes Nitrite Labor Signs Protein Cervic Dilation Cervic Effacement Cervic Station Type Weight in lbs Pre/Post Dialysis Refused BP Diastolic BP Location Tested BP Systolic BP Type Fetus Heart Rate Present Fetus Movement Comments Flowsheet Date 12/31/2022 Oates Score Blood Edema Fundus Height Fundus Units Glucose Ketones Leukocytes Nitrite Labor Signs Protein Cervic Dilation Cervic Effacement Cervic Station Type Weight in lbs Pre/Post Dialysis Refused BP Diastolic BP Location Tested BP Systolic BP Type Fetus Heart Rate Present Fetus Movement Comments Flowsheet Date 12/31/2022 Oates Score Blood Edema Fundus Height Fundus Units Glucose Ketones Leukocytes Nitrite Labor Signs Protein Cervic Dilation Cervic Effacement Cervic Station Type Weight in lbs Pre/Post Dialysis Refused Weight 263.147768383493 BP Diastolic BP Location Tested BP Systolic BP Type 76 114 Fetus Heart Rate Present Fetus Movement Comments Flowsheet Date 01/03/2023 Oates Score Blood Edema Fundus Height Fundus Units Glucose Ketones Leukocytes Nitrite Labor Signs Protein Cervic Dilation Cervic Effacement Cervic Station Type Weight in lbs Pre/Post Dialysis Refused BP Diastolic BP Location Tested BP Systolic BP Type Fetus Heart Rate Present Fetus Movement Comments Flowsheet Date 01/03/2023 Oates Score Blood Edema Fundus Height Fundus Units Glucose Ketones Leukocytes Nitrite Labor Signs Protein Cervic Dilation Cervic Effacement Cervic Station neg none none trace 1cm 10% Type Weight in lbs Pre/Post Dialysis Refused Weight 265.035147046132 BP Diastolic BP Location Tested BP Systolic BP Type 77 L arm 112 sitting Fetus Heart Rate Present A 140 Fetus Movement A Yes Comments Doing fine. NST reactive. US this week 44%. BS fastings 96-101, all pp normal, will increase NPH to 14 at night. We discussed her last delivery with a SD. Baby had a brachial plexus injury and ended up with physical therapy and deficits for a year, now no problems. We discussed the spectrum of shoulder dystocia deliveries from mild to devastating. Her last baby was a 6-15 baby at 37w. I recommend delivery for this baby to avoid the above risks. She agrees. Will schedule. GBS done. Flowsheet Date 01/07/2023 Oates Score Blood Edema Fundus Height Fundus Units Glucose Ketones Leukocytes Nitrite Labor Signs Protein Cervic Dilation Cervic Effacement Cervic Station Type Weight in lbs Pre/Post Dialysis Refused BP Diastolic BP Location Tested BP Systolic BP Type Fetus Heart Rate Present Fetus Movement Comments Flowsheet Date 01/07/2023 Oates Score Blood Edema Fundus Height Fundus Units Glucose Ketones Leukocytes Nitrite Labor Signs Protein Cervic Dilation Cervic Effacement Cervic Station Type Weight in lbs Pre/Post Dialysis Refused BP Diastolic BP Location Tested BP Systolic BP Type 83 119 Fetus Heart Rate Present Fetus Movement Comments Flowsheet Date 01/10/2023 Oates Score Blood Edema Fundus Height Fundus Units Glucose Ketones Leukocytes Nitrite Labor Signs Protein Cervic Dilation Cervic Effacement Cervic Station Type Weight in lbs Pre/Post Dialysis Refused BP Diastolic BP Location Tested BP Systolic BP Type Fetus Heart Rate Present Fetus Movement Comments Flowsheet Date 01/10/2023 Oates Score Blood Edema Fundus Height Fundus Units Glucose Ketones Leukocytes Nitrite Labor Signs Protein Cervic Dilation Cervic Effacement Cervic Station neg trace none trace Type Weight in lbs Pre/Post Dialysis Refused Weight 267.034772542070 BP Diastolic BP Location Tested BP Systolic BP Type 76 122 Fetus Heart Rate Present A 135 Fetus Movement A Yes Comments Doing fine. Fastings still e levated, increase HS NPH to 24. GERD still bothersome, increase omeprazole to BID. ST reactive. CS 6/5. GBS neg. Flowsheet Date 01/14/2023 Oates Score Blood Edema Fundus Height Fundus Units Glucose Ketones Leukocytes Nitrite Labor Signs Protein Cervic Dilation Cervic Effacement Cervic Station Type Weight in lbs Pre/Post Dialysis Refused BP Diastolic BP Location Tested BP Systolic BP Type Fetus Heart Rate Present Fetus Movement Comments Flowsheet Date 01/14/2023 Oates Score Blood Edema Fundus Height Fundus Units Glucose Ketones Leukocytes Nitrite Labor Signs Protein Cervic Dilation Cervic Effacement Cervic Station Type Weight in lbs Pre/Post Dialysis Refused BP Diastolic BP Location Tested BP Systolic BP Type Fetus Heart Rate Present Fetus Movement Comments Flowsheet Date 01/14/2023 Oates Score Blood Edema Fundus Height Fundus Units Glucose Ketones Leukocytes Nitrite Labor Signs Protein Cervic Dilation Cervic Effacement Cervic Station neg trace none trace Type Weight in lbs Pre/Post Dialysis Refused Weight 266.643404921484 BP Diastolic BP Location Tested BP Systolic BP Type 86 125 Fetus Heart Rate Present A 140 Fetus Movement A Yes Comments Doing well. [facility], [facility]-96. All pp normal. US today is vertex. BROCK 7.8, will watch. BPP 06/03. Precautions given. Insulin refilled.Precautions given. Flowsheet Date 01/17/2023 Oates Score Blood Edema Fundus Height Fundus Units Glucose Ketones Leukocytes Nitrite Labor Signs Protein Cervic Dilation Cervic Effacement Cervic Station Type Weight in lbs Pre/Post Dialysis Refused BP Diastolic BP Location Tested BP Systolic BP Type Fetus Heart Rate Present Fetus Movement Comments Flowsheet Date 01/21/2023 Oates Score Blood Edema Fundus Height Fundus Units Glucose Ketones Leukocytes Nitrite Labor Signs Protein Cervic Dilation Cervic Effacement Cervic Station Type Weight in lbs Pre/Post Dialysis Refused BP Diastolic BP Location Tested BP Systolic BP Type Fetus Heart Rate Present Fetus Movement Comments Flowsheet Date 01/21/2023 Oates Score Blood Edema Fundus Height Fundus Units Glucose Ketones Leukocytes Nitrite Labor Signs Protein Cervic Dilation Cervic Effacement Cervic Station Type Weight in lbs Pre/Post Dialysis Refused BP Diastolic BP Location Tested BP Systolic BP Type 85 126 Fetus Heart Rate Present Fetus Movement Comments Pt here for NST/Growth & BPP only. Pt states fasting BS levels have been elevated, but forgot to bring log in. Pt called in with sugars and 3/6 levels elevated. Reviewed with Dr. Kirby and to increase to 32u NPH @ HS. Pt informed and will bring in BS at 6/2 appt for review again before c/s next week. Pt verbalized understanding. LUIS servin Flowsheet Date 01/24/2023 Oates Score Blood Edema Fundus Height Fundus Units Glucose Ketones Leukocytes Nitrite Labor Signs Protein Cervic Dilation Cervic Effacement Cervic Station Type Weight in lbs Pre/Post Dialysis Refused BP Diastolic BP Location Tested BP Systolic BP Type Fetus Heart Rate Present Fetus Movement Comments Flowsheet Date 01/24/2023 Oates Score Blood Edema Fundus Height Fundus Units Glucose Ketones Leukocytes Nitrite Labor Signs Protein Cervic Dilation Cervic Effacement Cervic Station neg none none trace Type Weight in lbs Pre/Post Dialysis Refused Weight 267.260739861186 BP Diastolic BP Location Tested BP Systolic BP Type 80 119 Fetus Heart Rate Present A 140 Fetus Movement A Yes Comments Doing well. BROCK improved to 12. NST reactive. Fastings on 32u at HS are 96, 87, 93, will increase to 36u until delivery Friday. Flowsheet Date 01/27/2023 Oates Score Blood Edema Fundus Height Fundus Units Glucose Ketones Leukocytes Nitrite Labor Signs Protein Cervic Dilation Cervic Effacement Cervic Station Type Weight in lbs Pre/Post Dialysis Refused BP Diastolic BP Location Tested BP Systolic BP Type Fetus Heart Rate Present Fetus Movement Comments Flowsheet Date 02/03/2023 Oates Score Blood Edema Fundus Height Fundus Units Glucose Ketones Leukocytes Nitrite Labor Signs Protein Cervic Dilation Cervic Effacement Cervic Station Type Weight in lbs Pre/Post Dialysis Refused Weight 254.289178628262 BP Diastolic BP Location Tested BP Systolic BP Type 82 132 Fetus Heart Rate Present Fetus Movement Comments Menstrual History Last Menstrual Date Menses Monthly On Bcp Conception Prior Menses Frequency Hcg Plus Date Menarche Onset Age 0904/29/2022 true Genetic Screening And Infection History Question Response Note Mental Retardation/Autism false Patient's Age Will Be 35 Years Or Older At Estim ated Date of Delivery false Thalassemia (Kazakh, Ivorian, Mediterranean, Or Background): MCV < 80 false Neural Tube Defect (Meningomyelocele, Spina Bifi da, Or Anencephaly) false Congenital Heart Defect false Down Syndrome false Yury-Sachs (eg, Zoroastrianism, Cajun, Vietnamese-[place]) f alse Cristiano Disease false Sickle Cell Disease Or Trait () false Hemophilia Or Other Blood Disorders false Muscular Dystrophy false Cystic Fibrosis false Sedan's Chorea false Intellectual Disability/Autism false If Yes, Was Person Tested For Fragile X? false Other Inherited Genetic Or Chromosomal Disorder false Maternal Metabolic Disorder (eg, Type 1 Diabetes , PKU) false Patient Or Baby's Father Had A Child With Defects Not Listed Above false Recurrent Loss, Or A Stillbirth false Medications (including Suppl ements, Vitamins, Herbs, OTC Drugs), Illicit/Recreational Drugs, Alcohol false If Yes, Agent(s) And Strength/Dosage false Any Other Genetic History false Live With Someone With TB Or Exposed To TB false Patient Or Partner Has History Of Genital Herpes false Rash Or Viral Illness Since Last Menstrual Perio d false History Of STD, Gonorrhea, Chlamydia, HPV, Syphi lis false Other Infection History false History of HIV false History of Hepatitis false Prior GBS-infected child false Hemoglobinopathy Or Carrier false Other Structural Defect false Recent Travel History Outside of Country false Delivery Information Delivery Date Delivery Type Labor Anesthesia Weeks Gestation Incision Type Labor Labor Length Hrs Delivered By Post Complications Tubal Sterilization Discharge Date Comments 3 None Regional-Sp inal 39.2 Low Transvers e false Mireya Kirby MD Pre-eclam psia, GDM, Maternal Obesity, Disorder of placenta & Hx of shoulder dystocia Discharge Information Feeding Method Contraceptive Method Maternal HG B and HCT Levels Ob Episode Information Episode Created Date Number of Fetuses Patient Bloodtype Patient rh Status Prepregnancy Weight lbs Domestic Partner Domestic Partner Phone Father Name Direct Marketing Representative Status 07/25/20 22 1 CLOSED Fetus Data First Name Last Name Admitted to NICU Weight (g) Sex Living Outcome Pediatric Complications Fetus ID Race Codes Race Delivery Type , Spontane ous [id number] Asher Calculation Initial Asher Date Initial Exam Date Initial Exam Provider Initial Ultrasound Date Last Menstrual Period Date Ultra Sound Weeks Gestation 0 Eighteen To Twenty Week Asher Update Ultra Sound Date Fundal Height At Umbil Quickening Date Ultra Sound Latest Weeks Gestation Final Asher Confirmed By Final Asher Confirmed Date Final Asher Date Ultra Sound Latest Days Gestation 0 0 Menstrual History Last Menstrual Date Menses Monthly On Bcp Conception Prior Menses Frequency Hcg Plus Date Menarche Onset Age Delivery Information Delivery Date Delivery Type Labor Anesthesia Weeks Gestation Incision Type Labor Labor Length Hrs Delivered By Post Complications Tubal Sterilization Discharge Date Comments 6 Discharge Information Feeding Method Contraceptive Method Maternal HG B and HCT Levels Ob Episode Information Episode Created Date Number of Fetuses Patient Bloodtype Patient rh Status Prepregnancy Weight lbs Domestic Partner Domestic Partner Phone Father Name Direct Marketing Representative Status 12/21/19 22 1 CLOSED Fetus Data First Name Last Name Admitted to NICU Weight (g) Sex Living Outcome Pediatric Complications Fetus ID Race Codes Race Delivery Type [id number] F Full Term [id number] Vaginal Delivery Asher Calculation Initial Asher Date Initial Exam Date Initial Exam Provider Initial Ultrasound Date Last Menstrual Period Date Ultra Sound Weeks Gestation 0 Eighteen To Twenty Week Asher Update Ultra Sound Date Fundal Height At Umbil Quickening Date Ultra Sound Latest Weeks Gestation Final Asher Confirmed By Final Asher Confirmed Date Final Asher Date Ultra Sound Latest Days Gestation 0 0 Menstrual History Last Menstrual Date Menses Monthly On Bcp Conception Prior Menses Frequency Hcg Plus Date Menarche Onset Age Delivery Information Delivery Date Delivery Type Labor Anesthesia Weeks Gestation Incision Type Labor Labor Length Hrs Delivered By Post Complications Tubal Sterilization Discharge Date Comments 1 37 Sugar Gallstone s, GDM, postpartu m preeclamp marija, Discharge Information Feeding Method Contraceptive Method Maternal HG B and HCT Levels
--- OUTSIDE RECORDS SUMMARY | 2024-12-21 00:34 | XMS_ITS | Clinical Summary ---
Author Organization [facility] Address [address] [place] [address] Care Team Providers Care Java Lead Architect Name Role Phone EsquivelDavid parra DO Primary Care Provider [phone] Source Comments [facility],non-owned Affiliates and Associated Physician Practices is amultiple site organization consisting of ambulatory clinics and hospital sitesin [place], [place], [place] and [place]. This disclosure is being madepursuant to the Care Everywhere program and may not contain all information available regarding this patient. Last updated 18.[facility] Allergies Active Allergy Reactions Criticality Noted Date Comments Doxycycline Urticaria,Rash,Swelling High 07/15/2018 Reaction: Rash, Hydrocodone Anaphylaxis,Urticaria High 05/01/2021 Reaction: ANAPHYLAXIS, Nitrofurantoin Urticaria,Rash,Nause a and/or Vomiting,Swelling High 03/07/2015 Reaction: Pruritic rash, , Reaction: Pruritic rash, Penicillins Itching 04/22/2021 Medications * Be aware that medications may not be up to date on this document. Alwaysverify current medications with the patient. ondansetron, disintegrating, (ZOFRAN ODT) 4 MG tablet Take 1 (one) tablet by mouth every 6 hours as needed for Nausea/Vomiti ng Allow tablet to dissolve on the tongue 20 tablet 04/22/2021 Active amitriptyline (Elavil) 10 MG tablet Take 20 mg by mouth at bedtime Active multivitamins plus minerals chew tablet Take 1 tablet by mouth daily with food Active vitamin D3 (Cholecalcifero l) 25 MCG (1000 UNITS) tablet Take 1,000 Units by mouth once daily Takes 5,000 a day Active SUMAtriptan (Imitrex) 100 MG tablet Take 100 mg by mouth daily as needed - may repeat one time for Migraine No more than 2 doses in 24 hours. Active Active Problems Problem Noted Date Diagnosed Date Cholelithiasis affecting pre gnancy in third trimester, antepartum 04/17/2022 Obstructive sleep apnea syndrome 04/17/2022 Acute intractable tension-type headache 03/29/20 22 Biliary colic 04/27/2021 Overview (04/17/2022): Added automatically from request for surgery [id number] Pre-eclampsia, severe, with delivery 04/09/2021 Gestational diabetes mellitus, class A2 03/12/20 21 Morbid obesity with body mass index of 40.0-49.9 06/27/2020 Acute hemorrhagic cystitis 11/14/2016 Overview (04/17/2022): Acute cystitis with hematuria Bronchitis 11/14/2016 Overview (04/17/2022): Bronchitis Fluid level behind tympanic membrane 11/14/2016 Overview (04/17/2022): Middle ear effusion, bilateral Migraine without aura 07/12/2015 Overview (04/17/2022): Note: Unchanged Social History Tobacco Use Types Packs/Day Years Used Date Smoking Tobacco: Never Smokeless Tobacco: Never Alcohol Use Standard Drinks/Week Comments Never 0 (1 standard drink = 0.6 oz pur e alcohol) AUDIT-C Answer Date Recorded Q1: How often do you have a drink containing alc ohol? Never 03/29/2022 Average Number of Drinks Not on file 022 Frequency of Binge Drinking Not on file 12/2021 Comments No Sex and Gender Information Value Date Recorded Sex Assigned at Not on file Legal Sex Female 2:30 AM CDT Gender Identity Not on file Sexual Orientation Not on file Last Filed Vital Signs Vital Sign Reading Time Taken Comments Blood Pressure 118/82 03/30/2022 8:21 AM CDT Pulse 82 03/30/2022 8:21 AM CDT Temperature 36.5 C (97.7 F) 03/30/2022 8:21 AM CDT Respiratory Rate 18 03/30/2022 8:21 AM CDT Oxygen Saturation 95% 03/30/2022 8:21 AM CDT Inhaled Oxygen Concentration - - Weight 115.2 kg (254 lb) 03/29/2022 5:23 PM CDT Height 157.5 cm (5' 2 ) 03/29/2022 5:23 PM CDT Body Mass Index 46.46 03/29/2022 5:23 PM CDT Plan of Treatment Health Maintenance Due Date Last Done Comments PAP SMEAR 1997 HIV SCREENING 2012 HEPATITIS C SCREENING 09/30/2015 DTAP/TDAP/TD VACCINES (1 - Tdap) 2016 HEPATITIS B VACCINE (1 of 3 - 19+ 3-dose series) 2016 COVID-19 VACCINE (3 - season) 2024 01/15/2021, 12/25/2020 DEPRESSION SCREENING 08/25/2024 INFLUENZA VACCINE (Season Ended) 2025 06/25/2021, 06/16/2020, 09/17/2016, Additional history exists ZOSTER VACCINE (1 of 2) 2047 HIB VACCINE Aged Out No longer eligi ble based on patient's age to complete this topic HPV VACCINE Aged Out No longer eligi ble based on patient's age to complete this topic MENINGOCOCCAL (Group B) VACCINE SHARED DECISION-MAKING Aged Out No longer eligible based on patient's age to complete this topic MENINGOCOCCAL GROUPS A/C/Y/W VACCINE Aged Out No longer eligible based on patient's age to complete this topic PNEUMOCOCCAL VACCINE Aged Out No long er eligible based on patient's age to complete this topic Insurance MEDICAID - [place] MEDICAID [facility] Advance Directives * Full Code (Latest Code Status on File) Date Activated Date Inactivated Comments 03/29/2022 1:06 AM 03/30/2022 1:57 PM * Full Code Date Activated Date Inactivated Comments 03/28/2022 4:45 PM 03/29/2022 1:06 AM Care Teams Java Lead Architect Relationship Specialty Start Date End Date David Esquivel DO [address] [place] [address] PCP - General Family Medicine 04/22/21
--- OUTSIDE RECORDS SUMMARY | 2024-12-21 00:35 | XMS_ITS | Continuity of Care Document ---
Author Organization [employer] [place] Address [address] [place] [address] [address] [place] [address] Phone Care Team Providers Care Roll Over Loader Name Role Phone Rona CRISTIAN Yolanda Unavailable Unavailable Procedures Procedure Date Therapeutic Activities Neuromuscular Re-Ed Manual Therapy Hot or Cold Pack Therapeutic Activities Neuromuscular Re-Ed Manual Therapy PT Evaluation Moderate Complexity Therapeutic Activities Neuromuscular Re-Ed Manual Therapy Therapeutic Activities Neuromuscular Re-Ed Therapeutic Exercise Manual Therapy Progress Note Therapeutic Activities Neuromuscular Re-Ed Therapeutic Exercise Manual Therapy Therapeutic Activities Neuromuscular Re-Ed Therapeutic Exercise Manual Therapy Therapeutic Activities Neuromuscular Re-Ed Therapeutic Exercise Manual Therapy Therapeutic Activities Neuromuscular Re-Ed Therapeutic Exercise Manual Therapy Therapeutic Activities Neuromuscular Re-Ed Therapeutic Exercise Manual Therapy Therapeutic Activities Neuromuscular Re-Ed Therapeutic Exercise Manual Therapy Therapeutic Activities Neuromuscular Re-Ed Therapeutic Exercise Manual Therapy Hot or Cold Pack Therapeutic Activities Neuromuscular Re-Ed Therapeutic Exercise Manual Therapy Hot or Cold Pack Progress Note Therapeutic Activities Neuromuscular Re-Ed Therapeutic Exercise Manual Therapy Hot or Cold Pack Therapeutic Activities Neuromuscular Re-Ed Therapeutic Exercise Manual Therapy Therapeutic Activities Neuromuscular Re-Ed Therapeutic Exercise Manual Therapy Hot or Cold Pack Therapeutic Activities Neuromuscular Re-Ed Therapeutic Exercise Manual Therapy Therapeutic Activities Neuromuscular Re-Ed Therapeutic Exercise Manual Therapy Progress Note Therapeutic Activities Neuromuscular Re-Ed Manual Therapy Hot or Cold Pack Therapeutic Activities Neuromuscular Re-Ed Therapeutic Exercise Manual Therapy Hot or Cold Pack Therapeutic Activities Neuromuscular Re-Ed Therapeutic Exercise Manual Therapy Hot or Cold Pack Therapeutic Activities Neuromuscular Re-Ed Therapeutic Exercise Manual Therapy Hot or Cold Pack Therapeutic Activities Neuromuscular Re-Ed Therapeutic Exercise Hot or Cold Pack Therapeutic Activities Neuromuscular Re-Ed Therapeutic Exercise Manual Therapy Hot or Cold Pack Therapeutic Activities Neuromuscular Re-Ed Therapeutic Exercise Hot or Cold Pack Therapeutic Activities Neuromuscular Re-Ed Therapeutic Exercise Manual Therapy Therapeutic Activities Neuromuscular Re-Ed Therapeutic Exercise Hot or Cold Pack Therapeutic Activities Neuromuscular Re-Ed Therapeutic Exercise Manual Therapy Therapeutic Activities Neuromuscular Re-Ed Hot or Cold Pack Therapeutic Activities Neuromuscular Re-Ed Therapeutic Exercise Manual Therapy Hot or Cold Pack Progress Note Therapeutic Activities Neuromuscular Re-Ed Therapeutic Exercise Manual Therapy Hot or Cold Pack Therapeutic Activities Neuromuscular Re-Ed Therapeutic Exercise Manual Therapy Hot or Cold Pack Therapeutic Activities Neuromuscular Re-Ed Apr- Therapeutic Exercise Apr- Manual Therapy Hot or Cold Pack Progress Note Therapeutic Activities Neuromuscular Re-Ed Apr- Manual Therapy Apr- Hot or Cold Pack Therapeutic Activities Neuromuscular Re-Ed Apr- Manual Therapy Apr- Hot or Cold Pack Therapeutic Activities Neuromuscular Re-Ed Therapeutic Exercise Manual Therapy Hot or Cold Pack Therapeutic Activities Neuromuscular Re-Ed Therapeutic Exercise Manual Therapy Therapeutic Activities Neuromuscular Re-Ed Therapeutic Exercise Manual Therapy Hot or Cold Pack Therapeutic Activities Neuromuscular Re-Ed Manual Therapy Hot or Cold Pack Neuromuscular Re-Ed Therapeutic Activities Manual Therapy Hot or Cold Pack Therapeutic Activities Neuromuscular Re-Ed Therapeutic Exercise Hot or Cold Pack Therapeutic Activities Neuromuscular Re-Ed Manual Therapy Hot or Cold Pack PT Evaluation Moderate Complexity Therapeutic Activities Neuromuscular Re-Ed Therapeutic Exercise Hot or Cold Pack Therapeutic Activities Neuromuscular Re-Ed Hot or Cold Pack Therapeutic Activities Neuromuscular Re-Ed Therapeutic Exercise Hot or Cold Pack Doc neg elder mal no plan PRES/ABSN URINE INCON ASSESS Identified as not an unhealthy alcohol u ser Not identified as unhealthy alcohol via screening Identified as not an unhealthy alcohol u ser Not identified as unhealthy alcohol via screening OT Evaluation High Complexity Therapeutic Activities Therapeutic Exercise Hot or Cold Pack Therapeutic Activities Neuromuscular Re-Ed Therapeutic Exercise Hot or Cold Pack Therapeutic Activities Neuromuscular Re-Ed Hot or Cold Pack Manual Therapy Therapeutic Activities Neuromuscular Re-Ed Manual Therapy Hot or Cold Pack Therapeutic Activities Neuromuscular Re-Ed Manual Therapy Hot or Cold Pack Therapeutic Activities Neuromuscular Re-Ed Therapeutic Exercise Hot or Cold Pack Therapeutic Activities Neuromuscular Re-Ed Manual Therapy Hot or Cold Pack Progress Note Therapeutic Activities Neuromuscular Re-Ed Hot or Cold Pack Therapeutic Activities Neuromuscular Re-Ed Manual Therapy Hot or Cold Pack Therapeutic Activities Neuromuscular Re-Ed Hot or Cold Pack Therapeutic Activities Neuromuscular Re-Ed Hot or Cold Pack Therapeutic Activities Neuromuscular Re-Ed Manual Therapy Hot or Cold Pack Therapeutic Activities Neuromuscular Re-Ed Manual Therapy Hot or Cold Pack Therapeutic Activities Neuromuscular Re-Ed Manual Therapy Hot or Cold Pack Therapeutic Activities Manual Therapy Neuromuscular Re-Ed Hot or Cold Pack Therapeutic Activities Neuromuscular Re-Ed Manual Therapy Hot or Cold Pack Therapeutic Activities Neuromuscular Re-Ed Hot or Cold Pack Therapeutic Activities Neuromuscular Re-Ed Manual Therapy Hot or Cold Pack Therapeutic Activities Neuromuscular Re-Ed Hot or Cold Pack Therapeutic Activities Manual Therapy Neuromuscular Re-Ed Hot or Cold Pack Progress Note Therapeutic Activities Neuromuscular Re-Ed Hot or Cold Pack Progress Note Therapeutic Activities Neuromuscular Re-Ed Therapeutic Exercise Manual Therapy Therapeutic Activities Neuromuscular Re-Ed Manual Therapy Hot or Cold Pack Therapeutic Activities Neuromuscular Re-Ed Therapeutic Exercise Manual Therapy Hot or Cold Pack Therapeutic Activities Neuromuscular Re-Ed Therapeutic Exercise Manual Therapy Hot or Cold Pack Progress Note Therapeutic Activities Neuromuscular Re-Ed Manual Therapy Hot or Cold Pack Therapeutic Activities Neuromuscular Re-Ed Therapeutic Exercise Manual Therapy Hot or Cold Pack Therapeutic Activities Neuromuscular Re-Ed Therapeutic Exercise Manual Therapy Hot or Cold Pack Therapeutic Activities Neuromuscular Re-Ed Hot or Cold Pack Therapeutic Activities Neuromuscular Re-Ed Therapeutic Exercise Manual Therapy Hot or Cold Pack Therapeutic Activities Neuromuscular Re-Ed Hot or Cold Pack Therapeutic Activities Neuromuscular Re-Ed Therapeutic Exercise Manual Therapy Hot or Cold Pack Therapeutic Activities Neuromuscular Re-Ed Therapeutic Exercise Manual Therapy Hot or Cold Pack Therapeutic Activities Neuromuscular Re-Ed Therapeutic Activities Neuromuscular Re-Ed Therapeutic Exercise Manual Therapy Hot or Cold Pack Therapeutic Activities Neuromuscular Re-Ed Therapeutic Exercise Manual Therapy Hot or Cold Pack Therapeutic Activities Neuromuscular Re-Ed Therapeutic Activities Neuromuscular Re-Ed Therapeutic Activities Neuromuscular Re-Ed Therapeutic Exercise Manual Therapy PT Evaluation Moderate Complexity Therapeutic Activities Neuromuscular Re-Ed Manual Therapy Identified as not an unhealthy alcohol u ser Not identified as unhealthy alcohol via screening OT Evaluation Moderate Complexity Therapeutic Activities Neuromuscular Re-Ed Therapeutic Exercise Advance Directives Directive Yes / No Effective Date File Name No Information Encounters Encounter Description Practice Location Reason(s) For Visit Diagnoses Date Provider Providers Copied on Encounter [facility] [address], [place], [place], [id number], [place] tel:[phone] [place] No Information Scheldt Yolanda. . Referring Provider: Baldomero Ceballos Jr, [address] [place] [address], [address]. tel:[phone] [place] [address], [place], [place], [id number], tel:[phone] [place] No Information Scheldt Yolanda. . Referring Provider: Baldomero Ceballos Jr, [address] [place] [address], [address]. tel:[phone] [place] [address], [place], [place], [id number], tel:[phone] [place] No Information Jeremi Cruz. . Referring Provider: Baldomero Ceballos Jr, [address] [place] [address], [address]. tel:[phone] [place] [address], [place], [place], [id number], [place] tel:[phone] [place] No Information Jose Juan Oscar. . Referring Provider: Burak Olivera, [address] [place] [address], [place], [address]. tel:[phone] [place] [address], [id number], tel:[phone] [place]m No Information Hisky Oscar. . Referring Provider: Burak Olivera, [address] [place] [address], [place], [address]. tel:[phone] [place] [address], [place], [place], [id number], [place] tel:[phone] [place] No Information ky Oscar. . Referring Provider: Burak Olivera, [address] [place] [address], [place], [address]. tel:[phone] [place], [place] [address] [address], [place], [place], [id number], tel:[phone] [place]m No Information Rona Guerrero. . Referring Provider: Burak Olivera, [address] [place] [address], [place], [address]. tel:[phone] [address], [place], [id number], tel:[phone] [place] No Information Ryanne Mueller. [address] [place] [address], [address], [place], [place], [facility], . tel:[phone] Referring Provider: Burak Olivera, [address] [place] [address], [place], [place], [facility]. tel:[phone], [id number], tel:[phone] [place] No Information Ryanne Mueller. [address] [place] [address], [address], [place], [facility], . tel:[phone] Referring Provider: Burak Olivera, [address] [place] [address] Suite [facility], [place], [address]. tel:[phone] [address], [place], [place], [id number], tel:[phone] [place] No Information Jose Juan Moore. . Referring Provider: Burak Olivera, [address] [place] [address] Suite [facility], [place], [address]. tel:[phone], [place], [place], [id number], tel:[phone] [place] No Information Ryanne Mueller. [address] [place] [address], [address], [place], [facility], . tel:[phone] Referring Provider: Burak Olivera, [address] [place] [address] Suite [facility], [place], [address]. tel:[phone] [facility], [address] [place] [address], [id number], tel:[phone] [place] No Information Jeremi Cruz. . Referring Provider: Burak Olivera, [address] [place] [address], [place], [address]. tel:[phone], [id number], tel:[phone] [place] No Information Jose Juan Moore. . Referring Provider: Burak Olivera, [address] [place] [address], [place], [address]. tel:[phone], [id number], tel:[phone] [place] No Information Ryanne Mueller. [address] [place] [address], [address], [place], [facility], . tel:[phone] Referring Provider: Burak Olivera, [address] [place] [address], [place], [address]. tel:[phone], [id number], tel:[phone] [place] No Information Ryanne Mueller. [address] [facility], [address], [place], [facility], . tel:[phone] Referring Provider: Burak Olivera, [address] [place] [address] Suite [facility], [place], [address]. tel:[phone], [id number], tel:[phone] [place] No Information Rona Guerrero. . Referring Provider: Burak Olivera [address] [place] [address], [place], [address]. tel:[phone] [place] [address], [place], [place], [id number], tel:[phone] [place] No Information Rona Guerrero. . Referring Provider: Burak Olivera, [address] [place] [address], [place], [address]. tel:[phone] [place] [address], [place], [place], [id number], [place] tel:[phone] [place] No Information Ezekiel Donis. . Referring Provider: Bradly Camacho, [address] [place] [address] [address], [place], [address]. tel:[phone] [facility] [address] [place] [address], [place], [place], [id number], tel:[phone] [place] No Information Ezekiel Donis. . Referring Provider: Bradly Camacho, [address] [place] [address], [place], [address]. tel:[phone] [facility] [address] [place] [address], [id number], [place] tel:[phone] [place] No Information Jeremi Cruz. . Referring Provider: Burak Olivera, [address] [place] [address], [place], [address]. tel:[phone] [place] [address], [id number], [place] tel:[phone] [place] No Information Jeremi Cruz. . Referring Provider: Burak Olivera, [address] [place] [address], [place], [address]. tel:[phone] [facility] [address] [place] [address], [place], [place], [id number], tel:[phone] [place] No Information Ezekiel Donis. . Referring Provider: Bradly Camacho, [address] [facility] [address], [place], [address]. tel:[phone] [address], [place], [place], [id number], tel:[phone] [place] No Information Amiefranklynangela Mueller. [address] [facility], [address], [place], [address], [place]. tel:[phone] Referring Provider: Burak Olivera, [address] [place] [address] [address], [place], [address]. tel:[phone] [address], [place], [place], [id number], tel:[phone] [place] No Information Ezekiel Donis. . Referring Provider: Bradly Camacho, [address] [facility] [address], [place], [address]. tel:[phone] [facility], [address] [place] [address], [place], [place], [id number], [place] tel:[phone] [place] No Information Rona Guerrero. . Referring Provider: Burak Olivera, [address] [place] [address] [address], [place], [address]. tel:[phone], [id number], tel:[phone] [place]m No Information Ezekiel Donis. . Referring Provider: Bradly Camacho, [address] [facility] [address], [place], [address]. tel:[phone] [address], [place], [place], [id number], [place] tel:[phone] [place] No Information Jose Juan Moore. . Referring Provider: Burak Olivera, [address] [place] [address] [address], [place], [address]. tel:[phone] [facility] [address], [place], [id number], [place] tel:[phone] Dm No Information Ezekiel Donis. . Referring Provider: Bradly Camacho, [address] [place] [address] [address], [place], [address]. tel:[phone] [facility], [address] [facility], [place], [place], [id number], tel:[phone] Dm No Information Ryanne Mueller. [address] [place] [address], [address], [place], [facility], . tel:[phone] Referring Provider: Burak Olivera, [address] [place] [address] [address], [place], [address]. tel:[phone] [facility], [address] [place] [address], [place], [place], [id number], tel:[phone] [place]m No Information Jose Juan Moore. . Referring Provider: Burak Olivera, [address] [place] [address] [address], [place], [address]. tel:[phone] [facility] [address] [address], [place], [place], [id number], [place] tel:[phone] [place] No Information Ryanne Mueller. [address] [place] [address], [address], [place], [facility], . tel:[phone] Referring Provider: Burak Olivera, [address] [place] [address] [address], [place], [address]. tel:[phone] [facility] [address] [address], [place], [place], [id number], [place] tel:[phone] [place] No Information Jose Juan Moore. . Referring Provider: Burak Olivera, [address] [place] [address] [address], [place], [address]. tel:[phone] [facility], [address] [facility] 300, [place], [place], [id number], [place] tel:[phone] [place] No Information Ezekiel Donis. . Referring Provider: Bradly Camacho, [address] [facility] [address], [place], [address]. tel:[phone] [facility], [address] [place], [place] [address], [place], [place], [id number], [place] tel:[phone] [place] No Information Ezekiel Donis. . Referring Provider: Bradly Camacho, [address] [facility] [address], [place], [address]. tel:[phone] [facility], [address] [address], [place], [place], [id number], tel:[phone] [place] No Information Ryanne Mueller. [address] [place] [address], [address], [place], [facility], . tel:[phone] Referring Provider: Burak Olivera, [address] [place] [address] [address], [place], [address]. tel:[phone] [facility] [address] [place] [address], [place], [place], [id number], [place] tel:[phone] Dm No Information Jeremi Cruz. . Referring Provider: Burak Olivera [address] [place] [address] [address], [place], [address]. tel:[phone] [facility], [address] [place] [address], [place], [place], [id number], [place] tel:[phone] Dm No Information Jose Juan Moore. . Referring Provider: Burak Olivera [address] [place] [address] [address], [place], [address]. tel:[phone] [facility], [address] [place] [address], [place], [place], [id number], [place] tel:[phone] [place] No Information Ezekiel Donis. . Referring Provider: Bradly Camacho, [address], [place], [address]. tel:[phone] [address], [place], [place], [id number], tel:[phone] [place]m No Information Ezekiel Donis. . Referring Provider: Bradly Camacho, [address], [place], [address]. tel:[phone] [facility], [address] [place], [place] [address], [place], [place], [id number], [place] tel:[phone] [place] No Information Ryanne Mueller. [id number] [place] [address], [address], [place], [address], [place]. tel:[phone] Referring Provider: Burak Olivera, [address] [place] [address] [address], [place], [address]. tel:[phone] [address], [place], [place], [id number], [place] tel:[phone] [place] No Information Ezekiel Donis. . Referring Provider: Bradly Camacho, [address] [facility] [address], [place], [address]. tel:[phone] [address], [place], [place], [id number], [place] tel:[phone] [place] No Information Jose Juan Moore. . Referring Provider: Burak Olivera, [address] [place] [address] [address], [place], [address]. tel:[phone] [facility], [address] [place], [place] [address], [place], [place], [id number], [place] tel:[phone] [place] No Information Ezekiel Donis. . Referring Provider: Bradly Camacho, [address], [place], [address]. tel:[phone] [facility], [address], [place], [place], [id number], [place] tel:[phone] [place] No Information Ezekiel Donis. . Referring Provider: Bradly Camacho, [address], [place], [address]. tel:[phone] [facility], [place], [place], [id number], [place] tel:[phone] [place] No Information Ezekiel Donis. . Referring Provider: Bradly Camacho, [address], [place], [address]. tel:[phone] [facility] [address], [place], [place], [id number], [place] tel:[phone] [place] No Information Jose Juan Moore. . Referring Provider: Natividad Keller, [address], [place], [address]. tel:[phone] [facility] [address] [facility], [place], [place], [address], [place] tel:[phone] [place]m No Information Ryanne Mueller. [id number] [place] [address], [address], [place], [place], [facility], . tel:[phone] Referring Provider: Natividad Keller, [address], [place], [address]. tel:[phone] [facility] [address], [place], [id number], [place] tel:[phone] [place] No Information Jose Juan Moore. . Referring Provider: Natividad Keller, [address], [place], [address]. tel:[phone] [facility], [place], [place], [id number], [place] tel:[phone] [place] No Information Ryanne Mueller. [address] [facility], [address], [place], [facility], . tel:[phone] Referring Provider: Natividad Keller, [address], [place], [address]. tel:[phone] [facility] [address], [place], [id number], [place] tel:[phone] [place] No Information Jose Juan Moore. . Referring Provider: Natividad Keller, [address], [place], [address]. tel:[phone] [facility] [address] [place], [place] [address], [place], [id number], [place] tel:[phone] [place] No Information Ryanne Mueller. [address] [place] [address], [address], [place], [facility], . tel:[phone] Referring Provider: Natividad Keller, [address], [place], [address]. tel:[phone] [facility] [address], [place], [place], [address], [place] tel:[phone] [place] No Information Ezekiel Donis. . Referring Provider: Jordy Keller, [address], [place], [address]. tel:[phone] [facility], [place], [place], [id number], [place] tel:[phone] [place] No Information Jose Juan Moore. . Referring Provider: Natividad Keller, [address], [place], [address]. tel:[phone] [facility], [place], [place], [address], [place] tel:[phone] [place] No Information Ezekiel Donis. . Referring Provider: Jordy Keller, [address], [place], [address]. tel:[phone] [facility], [address] [facility] [address], [place], [place], [address], [place] tel:[phone] [place] No Information Ezekiel Donis. . Referring Provider: Jordy Keller, [address], [place], [address]. tel:[phone] [facility] [address] [facility] [address], [place], [place], [id number], tel:[phone] [place] No Information Jose Juan Moore. . Referring Provider: Natividad Keller, [address], [place], [address]. tel:[phone] [facility] [address] [place] [address], [place], [address], [place] tel:[phone] [place] No Information Ryanne Mueller. [address] [place] [address], [address], [place], [facility], . tel:[phone] Referring Provider: Natividad Keller, [address], [place], [address]. tel:[phone] [facility] [facility], [place], [place], [address], [place] tel:[phone] [place] No Information Ezekiel Donis. . Referring Provider: Jordy Keller, [address], [place], [address]. tel:[phone] [facility] [facility] [address], [place], [place], [address], [place] tel:[phone] [place] No Information Jeremi Cruz. . Referring Provider: Landen Holland, [address], [place], [address]. tel:[phone] [facility], [address] [place], [place] [address], [place], [place], [address], tel:[phone] [place] No Information Ezekiel Donis. . Referring Provider: Jordy Keller, [address], [place], [address]. tel:[phone] [facility], [address] [address] [place], [place] [address], [place], [place], [id number], [place] tel:[phone] Dm No Information Ezekiel Donis. . Referring Provider: Jordy Keller, [address], [place], [address]. tel:[phone] [address], [place], [place], [id number], [place] tel:[phone] [place] No Information Ryanne Mueller. [address] [facility], [address], [place], [place], [facility], . tel:[phone] Referring Provider: Landen Holland, [address], [place], [address]. tel:[phone] [address], [place], [place], [id number], [place] tel:[phone] [place] No Information Ezekiel Donis. . Referring Provider: Jordy Keller, [address], [place], [address]. tel:[phone] [facility] [address], [place], [place], [id number], tel:[phone] [place] No Information Ryanne Mueller. [address] [facility], [address], [place], [place], [facility], . tel:[phone] Referring Provider: [address], [place], [address]. tel:[phone] [facility], [address], [place], [place], [id number], [place] tel:[phone] [place] No Information Ezekiel Donis. . Referring Provider: Jordy Keller, [address], [place], [address]. tel:[phone] [facility], [address], [place], [place], [id number], [place] tel:[phone] Dm No Information Jose Juan Moore. . Referring Provider: [address], [place], [address]. tel:[phone] [facility], [address], [place], [place], [id number], [place] tel:[phone] Dm No Information Ezekiel Donis. . Referring Provider: Jordy Keller, [address], [place], [address]. tel:[phone] [facility], [address], [place], [place], [id number], [place] tel:[phone] [place] No Information Jose Juan Moore. . Referring Provider: [address], [place], [address]. tel:[phone] [facility], [address], [place], [place], [id number], [place] tel:[phone] Dm No Information Jose Juan Moore. . Referring Provider: [address], [place], [address]. tel:[phone] [facility], [address], [place], [place], [id number], [place] tel:[phone] Dm No Information Ezekiel Donis. . Referring Provider: Jordy Isaacpatricia Krishna, [address], [place], [address]. tel:[phone] [facility], [address], [place], [place], [id number], [place] tel:[phone] [place] No Information Ezekiel Donis. . Referring Provider: Jordy Henriquezdonis Krishna, [address], [place], [address]. tel:[phone] [facility], [address], [place], [place], [id number], [place] tel:[phone] Dm No Information Jose Juan Moore. . Referring Provider: Landen Holland, [address], [place], [address]. tel:[phone] [facility], [facility] [address], [place], [place], [id number], [place] tel:[phone] [place] No Information Ezekiel Donis. . Referring Provider: Sy[address], [place], [address]. tel:[phone] [facility] [address], [place], [place], [id number], [place] tel:[phone] Dm No Information Ryanne Mueller. [address] [facility], [address], [place], [address], [place]. tel:[phone] Referring Provider: Sy[address], [place], [address]. tel:[phone] [facility], [address], [place], [place], [id number], [place] tel:[phone] [place] No Information Marino Mayers. . Referring Provider: Sy[address], [place], [address]. tel:[phone] [place] [address] [address], [place], [place], [id number], tel:[phone] Dm No Information Jose Juan Moore. . Referring Provider: Sy[address], [place], [address]. tel:[phone] [place] [address], [address] [place] [address] [address], [place], [place], [id number], [place] tel:[phone] [place] No Information Jose Juan Moore. . Referring Provider: [address], [place], [address]. tel:[phone] [place] [address], [address] [place] [address] [facility], [place], [place], [id number], [place] tel:[phone] [place] No Information Ezekiel Donsi. . Referring Provider: Sy[address], [place], [address]. tel:[phone] [place] [address] [facility] [address], [place], [place], [id number], [place] tel:[phone] Dm No Information Jeremi Cruz. . Referring Provider: [address], [place], [address]. tel:[phone] [facility] [address], [place], [place], [id number], [place] tel:[phone] [place] No Information Ryanne Mueller. [address] [place] [address], [address], [place], [place], [facility], [place]. tel:[phone] Referring Provider: Sy[address], [place], [address]. tel:[phone] [facility], [address] [facility] [address] [place] [address], [id number], tel:[phone] [place] No Information Ezekiel Donis. . Referring Provider: Sy[address], [place], [place], [facility]. tel:[phone] [facility] [address] [place] [address], [place], [place], [id number], tel:[phone] D[place] No Information Ezekiel Donis. . Referring Provider: Sy[address], [place], [place], [facility]. tel:[phone] [facility] [address] [address], [place], [place], [id number], tel:[phone] [place] No Information Jeremi Cruz. . Referring Provider: Sy[address], [place], [facility]. tel:[phone] [facility] [address] [place] [address], [id number], tel:[phone] [place] No Information Jose Juan Moore. . Referring Provider: Sy[address], [place], [place], [facility]. tel:[phone] [facility] [address] [place] [address], [id number], tel:[phone] [place] No Information Ezekiel Donis. . Referring Provider: Syed [address], [place], [place], [facility]. tel:[phone] Family History Family Member Type Diagnosis Age At Onset No Information Payers Payer name Insurance type Covered green party ID Authorcya sera(s) Jermaine Cerda Social History Type Description Quantity Date Captured Comments Sex Female Smoking Status No Information Chief Complaint And Reason For Visit No Information Reason For Referral Reason For Referral No Information Plan Of Treatment Date Type Action Status Appointment Violet Cerda BOOKED Appointment Violet Cerda BOOKED Appointment Violet Cerda BOOKED History Of Present Illness Encounter Date Complaint History Of Prese nt Illness No Information Functional Status Date Functional Assessmen t No Information Instructions Date Instruction Additional Infor mation No Information Assessments Type Assessment Date No Information Patient Care Teams Name Effective Dates (start - stop) Status Members No Information
--- NOTE | 2024-12-21 06:55 | WPDANESEPPF ---
Anes - Initial Pre Proc Eval Procedure: Operation Date: 12/21/24 08:30 Proposed Procedures p Laparoscopic Left Ovarian Cystectomy - Nelson No MD Date/Time: 12/21/24 06:55 Surgeon: Nelson No MD Pre Op Diagnosis: Cyst Left Ovary Patient Data Age: 29 Gender: F Height: 1.57 m Weight: 113.6 kg Allergies Allergy/AdvReac Type Severity Reaction Status Date / Time hydrocodone Allergy Severe Anaphylaxis Verified 12/20/24 09:37 Penicillins Allergy Severe Anaphylaxis Verified 12/20/24 09:37 adhesive tape Allergy Intermediate Rash Verified 12/20/24 09:37 amoxicillin Allergy Intermediate Rash Verified 12/20/24 09:37 doxycycline Allergy Intermediate Rash Verified 12/20/24 09:37 nitrofurantoin Allergy Intermediate Hives Verified 12/20/24 09:37 phentermine AdvReac Intermediate Hypertensio Verified 12/20/24 09:37 n Home Medications ?Medication ?Instructions ?Recorded ?Confirmed ?Type cholecalciferol (vitamin D3) 1,250 1,250 mcg PO WEEKLY 03/19/22 12/20/24 History mcg (50,000 unit) capsule acetaminophen 500 mg tablet 1,000 mg PO Q6H PRN Pain or 03/15/23 12/20/24 History (Tylenol Extra Strength) Headache ibuprofen 600 mg tablet 600 mg PO Q6H PRN Cramping or 03/15/23 12/20/24 History Headache rimegepant 75 mg disintegrating 75 mg PO ONCE PRN migraine headache 12/20/24 12/20/24 History tablet (Nurtec ODT) tirzepatide 5 mg/0.5 mL 5 mg subcut WEEKLY 12/20/24 12/20/24 History subcutaneous pen injector (Mounjaro) Patient hx anesthesia problems: none Family hx anesthesia problems: none Results Review: All pre-operative results and documents have been reviewed as part of the pre-operative evaluation. [facility] Past Medical History Medical History (Updated 12/21/24 @ 06:55 by Ervin Schmidt MD) Asthma GERD (gastroesophageal reflux disease) Ovarian cyst Morbid obesity Surgical History Surgical History Hx of cholecystectomy H/O eye surgery Family History Family History Father Colon cancer Diabetes mellitus Heart disease Cirrhosis Patient's father is , Onset Age: 58 Cerebrovascular accident Grandparent Ovarian cancer Diabetes mellitus Heart disease Hypertension Cerebrovascular accident Sibling Yepez's palsy Social History Social History Social History: never smoker Smoking status: Never smoker Alcohol intake: never Substance use: never Lack of Transportation: No Lack of Food: Never True Current Housing: I Have Housing Concerned About Future Housing: No Difficulty Paying Gas/Electric Bills: No Difficulty Paying for Meds: No Currently Unemployed: No Education: High School Diploma/GED Difficulty w/ Childcare or Family Care: No Living arrangements: with family Spiritual care concerns: No Anes - Eval Final PreProcedure Day of Procedure 12/21/24 06:55 Patient weight: morbidly obese Heart: regular rate and rhythm Lungs: clear to auscultation Airway: Mallampati scale class II Neurological: alert and oriented Last oral intake: >/= 8 hours ASA classification: III Emergent: no Anesthetic plan: proceed Anesthesia type and monitoring: general ETT and standard monitoring Results Review: All pre-operative results and documents have been reviewed as part of the pre-operative evaluation. Informed Consent: The patient's anesthetic plan and its attendant risks and benefits were discussed with the patient/family/POA. Questions were solicited and answers provided to the satisfaction of the patient/family/POA.
[2024-12-21] MEDS: ACETAMINOPHEN 500 MG TABLET 1000 MG PO (07:00)
[2024-12-21] MEDS: LACTATED RINGERS 1,000 ML 30 ML IV CONT ×2 (07:00→10:46)
[2024-12-21] MEDS: KETOROLAC 15 MG/ML VIAL (*BKC) IV PUSH (07:05)
[2024-12-21 07:15] LABS: BEDSIDEPREGUCG Negative (Negative)
[2024-12-21] MEDS: SCOPOLAMINE 1 MG PATCH 1 PATCH TRANSDERM (07:27)
--- NOTE | 2024-12-21 08:09 | WPDHPUPDATE1 ---
History and Physical Update Update Date/Time: 12/21/24 08:09 History and Physical has been reviewed, including an updated exam of the patient. There are NO changes in the patient's condition. Risks, benefits, and alternatives have been discussed and questions answered. Patient agrees to proceed with procedure.
--- NOTE | 2024-12-21 09:04 | W.PM.PROC2 ---
Procedure Note - Detailed Date of Procedure 12/21/24 Pre-op Diagnosis Cyst Left Ovary Post-op Diagnosis Same Procedure Performed Laparoscopic left ovarian cystectomy Surgeon Nelson No MD Anesthesia General Indications Pelvic pain Findings 7 cm left ovarian cyst. Otherwise normal pelvic anatomy. Description of Procedure The patient was taken to the operating room. She was prepped and draped in the dorsal lithotomy position after induction general anesthesia. A 5 mm incision was made with a scalpel on the abdominal skin in the left upper quadrant of the abdomen. A 5 mm trocar was inserted into the intra-abdominal cavity under direct visualization the scope. In the same fashion a 5 mm left lower quadrant trocar was inserted and a 5 mm infraumbilical trocar was inserted. Left ovarian cystectomy was performed using LigaSure cautery. Cyst was opened and cyst capsule was removed. Cautery was used to make it hemostatic. The pelvis was irrigated. The pneumoperitoneum was reduced. The trocars were removed. Skin was closed with subcuticular 4 micro. The patient's incisions were covered with Dermabond. She was taken recovery room in stable condition. Sponge lap and needle counts were correct x2. Complications No immediate complications Condition Stable Disposition Same day
[2024-12-21] MEDS: fentaNYL CITRATE INJ (*CRX) 100 MCG/2 ML VIAL 25 MCG IV PUSH ×4 (09:21→09:34)
[2024-12-21] MEDS: oxyCODONE HCL (*CRX) 5 MG TAB IR PO (10:11)
[2024-12-21] MEDS: ONDANSETRON INJ 4 MG/2 ML VIAL IV PUSH (10:41)
== END 2024-12-21 11:15 | disposition home or self-care (01) ==
PROVIDERS: PCP Family Medicine; Visit Provider Obstetrics & Gynecology
PROC: (CPT 49320; principal; 2024-12-21 08:30)
DX: D27.1 Benign neoplasm of left ovary (principal); G89.18 Other acute postprocedural pain; I10 Essential (primary) hypertension; E11.9 Type 2 diabetes mellitus without complications; J45.909 Unspecified asthma, uncomplicated; K21.9 Gastro-esophageal reflux disease without esophagitis; F41.8 Other specified anxiety disorders; E66.01 Morbid (severe) obesity due to excess calories; Z68.42 Body mass index [BMI] 45.0-49.9, adult; Z79.1 Long term (current) use of non-steroidal anti-inflammatories (NSAID); Z79.85 Long-term (current) use of injectable non-insulin antidiabetic drugs; Z98.890 Other specified postprocedural states; Z90.49 Acquired absence of other specified parts of digestive tract; Z80.3 Family history of malignant neoplasm of breast; Z80.41 Family history of malignant neoplasm of ovary; Z80.0 Family history of malignant neoplasm of digestive organs; Z82.49 Family history of ischemic heart disease and other diseases of the circulatory system
CPT/HCPCS: 58662; 88305; A9270; J1885; J2003; J2250; J2405; J2704; J3010; J7030; J7120

== ENCOUNTER 2025-05-30 00:56 | Day surgery (SDC) | payer OTHER, MEDICAID, SELFPAY ==
--- OUTSIDE RECORDS SUMMARY | 2025-01-26 09:48 | XMS_ITS | Continuity of Care Document ---
Author Organization [employer] [place] Address [address] [place] [address] [address] [place] [address] Phone Care Team Providers Care Window Assembler Name Role Phone Rona CRISTIANJuan Davidi Unavailable [...] Diagnoses Date Provider Providers Copied on Encounter [facility] [address] [place] [address], [id number], tel:[phone] [place] No Information Scheldt Yolanda. . [facility] [address] [place] [address], [id number], tel:[phone] [place] No Information Scheldt Yolanda. . Referring Provider: Baldomero Ceballos Jr, [address] [place] [address], [address]. tel:[phone] [place] [address] [place] [address], [id number], tel:[phone] Dm No Information Jeremi Cruz. . Referring Provider: Baldomero Ceballos Jr, [address] [place] [address], [address]. tel:[phone] [place] [address], [id number], tel:[phone] Dm No Information Scheldt Yolanda. . Referring Provider: Baldomero Ceballos Jr, [address] [place] [address], [address]. tel:[phone] [place] [address], [id number], tel:[phone] Dm No Information Scheldt Yolanda. . Referring Provider: Baldomero Ceballos Jr, [address] [place] [address], [address]. tel:[phone] [place] [address], [id number], tel:[phone] [place] No Information Garenders Nancy. . Referring Provider: Baldomero Ceballos Jr, [address] [facility], [place], [address]. tel:[phone] [address], [place], [place], [id number], tel:[phone] Dm No Information Jose Juan Oscar. . Referring Provider: Burak Olivera, [address] [place] [address], [place], [address]. tel:[phone] [address], [place], [id number], [place] tel:[phone] Dm No Information ky Oscar. . Referring Provider: Burak Olivera, [address] [place] [address], [place], [address]. tel:[phone] [address], [place], [place], [id number], tel:[phone] Dm No Information ky Oscar. . Referring Provider: Burak Olivera, [address] [place] [address], [place], [address]. tel:[phone] [address], [place], [id number], [place] tel:[phone] [place] No Information Rona Guerrero. . Referring Provider: Burak Olivera, [address] [place] [address], [place], [address]. tel:[phone] [address] [address], [place], [id number], [place] tel:[phone] [place] No Information Ryanne Mueller. [address] [facility], [address], [place], [address], . tel:[phone] Referring Provider: Burak Olivera, [address] [place] [address], [place], [address]. tel:[phone] [facility], [address] [place] [address], [place], [place], [id number], [place] tel:[phone] Dm No Information Ryanne Mueller. [address] [place] [address], [address], [place], [place], [facility], . tel:[phone] Referring Provider: Burak Olivera, [address] [place] [address], [place], [address]. tel:[phone] [address], [place], [place], [id number], tel:[phone] Gu[place] No Information Jose Juan Moore. . Referring Provider: Burak Olivera, [address] [place] [address], [place], [address]. tel:[phone] [address], [place], [id number], tel:[phone] [place] No Information Ryanne Mueller. [address] [place] [address], [address], [place], [facility], . tel:[phone] Referring Provider: Burak Olivera, [address] [place] [address], [place], [address]. tel:[phone] [address] [address], [place], [place], [id number], tel:[phone] [place] No Information Jeremi Cruz. . Referring Provider: Burak Olivera, [address] [place] [address], [place], [address]. tel:[phone], [place], [place], [id number], [place] tel:[phone] Dm No Information Jose Juan Moore. . Referring Provider: Burak Olivera, [address] [place] [address], [place], [address]. tel:[phone], [place], [place], [id number], [place] tel:[phone] Dm No Information Ryanne Mueller. [address] [facility], [address], [place], [facility], . tel:[phone] Referring Provider: Burak Olivera, [address] [place] [address] [address], [place], [address]. tel:[phone] [facility], [address] [place] [address], [place], [place], [id number], [place] tel:[phone] [place] No Information Ryanne Mueller. [address] [facility], [address], [place], [facility], . tel:[phone] Referring Provider: Burak Olivera, [address] [place] [address] [address], [place], [address]. tel:[phone] [facility], [address] [place] [address], [id number], tel:[phone] Dm No Information Rona Guerrero. . Referring Provider: Burak Olivera, [address] [place] [address] 202, [place], [address]. tel:[phone] [facility], [address] [place] [address], [place], [place], [id number], tel:[phone] Dm No Information Rona Guerrero. . Referring Provider: Burak Olivera [address] [place] [address] 202, [place], [address]. tel:[phone] [address], [place], [id number], [place] tel:[phone] Dm No Information Ezekiel Donis. . Referring Provider: Bradly Camacho, [address] [facility] [address], [place], [address]. tel:[phone] [facility], [address] [place] [address], [place], [place], [address], [place] tel:[phone] [place] No Information Ezekiel Donis. . Referring Provider: Bradly Camacho, [address] [facility] [address], [place], [address]. tel:[phone] [facility], [address] [place] [address], [place], [place], [address], [place] tel:[phone] [place] No Information Devenrels Nancy. . Referring Provider: Burak Olivera, [address] [place] [address] 202, [place], [address]. tel:[phone] [address], [place], [place], [id number], tel:[phone] Dm No Information Enzos Nancy. . Referring Provider: Burak Olivera, [address] [place] [address] 202, [place], [address]. tel:[phone] [facility] [address] [place] [address], [place], [place], [address], [place] tel:[phone] [place] No Information Ezekiel Donis. . Referring Provider: Bradly Camacho, [address] [place] [address] [address], [place], [address]. tel:[phone] [address], [place], [place], [address], [place] tel:[phone] Dm No Information Ryanne Mueller. [address] [facility], [address], [place], [address], [place]. tel:[phone] Referring Provider: Burak Olivera, [address] [place] [address] 202, [place], [address]. tel:[phone] [facility], [address] [place] [address], [place], [place], [address], [place] tel:[phone] Dm No Information Ezekiel Donis. . Referring Provider: Bradly Camacho, [address] [facility] [address], [place], [address]. tel:[phone] [facility] [address] [place] [address], [place], [place], [id number], [place] tel:[phone] Dm No Information Rona Guerrero. . Referring Provider: Burak Olivera, [address] [place] [address] [address], [place], [address]. tel:[phone] [facility], [address] [place] [address], [place], [place], [id number], [place] tel:[phone] Dm No Information Ezekiel Donis. . Referring Provider: Bradly Camacho, [address] [facility] [address], [place], [address]. tel:[phone], [id number], [place] tel:[phone] Dm No Information Jose Juan Moore. . Referring Provider: Burak Olivera, [address] [place] [address] [address], [place], [address]. tel:[phone] [facility], [address] [address], [place], [place], [id number], [place] tel:[phone] [place] No Information Ezekiel Donis. . Referring Provider: Bradly Camacho, [address] [place] [address] [address], [place], [address]. tel:[phone] [address], [place], [address], [place] tel:[phone] Dm No Information Ryanne Mueller. [id number] [place] [address], [address], [place], [address], [place]. tel:[phone] Referring Provider: Burak Olivera, [address] [place] [address] [address], [place], [address]. tel:[phone] [facility], [address] [facility] [address], [place], [place], [id number], [place] tel:[phone] Dm No Information Jose Juan Moore. . Referring Provider: Burak Olivera, [address] [place] [address] [address], [place], [address]. tel:[phone] [facility] [address] [facility] [address], [place], [address], [place] tel:[phone] Dm No Information Ryanne Mueller. [address] [facility], [address], [place], [address], [place]. tel:[phone] Referring Provider: Burak Olivera, [address] [place] [address] [address], [place], [address]. tel:[phone] [facility], [address] [facility] [address], [place], [place], [address], [place] tel:[phone] Dm No Information Jose Juan Moore. . Referring Provider: Burak Olivera, [address] [place] [address] [address], [place], [address]. tel:[phone] [facility] [address] [facility] [address], [place], [address], [place] tel:[phone] Dm No Information Ezekiel Donis. . Referring Provider: Bradly Camacho, [address] [facility] [address], [place], [address]. tel:[phone] [facility] [address] [facility] [address], [place], [place], [address], [place] tel:[phone] [place] No Information Ezekiel Donis. . Referring Provider: Bradly Camacho, [address] [facility] [address], [place], [address]. tel:[phone] [facility], [address] [facility] [address], [place], [place], [address], [place] tel:[phone] Dm No Information Ryanne Mueller. [address] [facility], [address], [place], [place], [facility], [place]. tel:[phone] Referring Provider: Burak Olivera, [address] [place] [address] [address], [place], [address]. tel:[phone] [facility], [address] [place] [address], [place], [place], [address], [place] tel:[phone] [place] No Information Jeremi Cruz. . Referring Provider: Burak Olivera, [address] [place] [address] [address], [place], [address]. tel:[phone] [facility], [address] [place] [address], [place], [place], [address], tel:[phone] Dm No Information Jose Juan Moore. . Referring Provider: Burak Olivera, [address] [place] [address] [address], [place], [address]. tel:[phone] [facility], [address] [place] [address], [place], [place], [address], [place] tel:[phone] [place] No Information Ezekiel Donis. . Referring Provider: Bradly Camacho, [address] [facility] [address], [place], [address]. tel:[phone] [facility] [address] [address], [place], [place], [address], [place] tel:[phone] Dm No Information Ezekiel Donis. . Referring Provider: Bradly Camacho, [address] [facility] [address], [place], [address]. tel:[phone] [facility], [address] [facility] 300, [place], [place], [address], [place] tel:[phone] Dm No Information Ryanne Muleler. [address] [facility], [address], [place], [address], [place]. tel:[phone] Referring Provider: Burak Olivera, [address] [place] [address] [address], [place], [address]. tel:[phone] [facility], [address] [place] [address] 300, [place], [place], [address], tel:[phone] Dm No Information Ezekiel Donis. . Referring Provider: Bradly Camacho, [address], [place], [address]. tel:[phone] [address], [place], [place], [address], [place] tel:[phone] Guion No Information Jose Juan Moore. . Referring Provider: Burak Olivera, [address] [place] [address] [address], [place], [address]. tel:[phone] [address] [facility], [place], [place], [address], [place] tel:[phone] Dm No Information Ezekiel Donis. . Referring Provider: Bradly Camacho, [address], [place], [address]. tel:[phone] [address], [place], [place], [address], [place] tel:[phone] [place] No Information Ezekiel Donis. . Referring Provider: Bradly Camacho, [address], [place], [address]. tel:[phone], [place], [place], [address], [place] tel:[phone] Dm No Information Ezekiel Donis. . Referring Provider: Bradly Camacho, [address], [place], [address]. tel:[phone] [facility], [place], [place], [address], [place] tel:[phone] Gu[place] No Information estefania Moore. . [facility], [place], [place], [address], tel:[phone] Gu[place] No Information Ryanne Mueller. [address] [facility], [address], [place], [place], [facility], . tel:[phone] [facility], [place], [place], [address], [place] tel:[phone] Dm No Information Jose Juan Oscar. . [facility], [place], [place], [address], tel:[phone] Gu[place] No Information Ryanne Mueller. [address] [place] [address], [address], [place], [place], [facility], . tel:[phone] [facility], [place], [place], [address], [place] tel:[phone] Gu[place] No Information Jose Juan Moore. . [facility], [place], [place], [address], [place] tel:[phone] Dm No Information Ryanne Mueller. [address] [place] [address], [address], [place], [facility], . tel:[phone] [facility], [place], [place], [address], [place] tel:[phone] Gu[place] No Information Ezekiel Donis. . Referring Provider: Jordy Keller, [address], [place], [address]. tel:[phone] [facility], [place], [place], [address], [place] tel:[phone] Dm No Information Jose Juan Moore. . [facility] [facility] [address], [place], [place], [address], tel:[phone] Guion No Information Ezekiel Donis. . Referring Provider: Jordy Keller, [address], [place], [address]. tel:[phone] [facility] [facility] [address], [place], [place], [address], [place] tel:[phone] Guion No Information Ezekiel Donis. . Referring Provider: Jordy Keller, [address], [place], [address]. tel:[phone] [facility] [address], [place], [place], [address], tel:[phone] Guion No Information Jose Juan Moore. . [facility] [address], [place], [place], [address], [place] tel:[phone] Guion No Information Ryanne Mueller. [address] [facility], [address], [place], [facility], . tel:[phone] [facility] [address], [place], [place], [address], [place] tel:[phone] Dm No Information Ezekiel Donis. . Referring Provider: Jordy Keller, [address], [place], [address]. tel:[phone] [facility] [facility] 300, [place], [place], [address], tel:[phone] Dm No Information Jeremi Cruz. . [facility] [facility] 300, [place], [place], [address], tel:[phone] Guion No Information Ezekiel Donis. . Referring Provider: Jordy Veronika Krishna, [address], [place], [address]. tel:[phone] [facility] [address], [place], [place], [address], tel:[phone] Gu[place] No Information Ezekiel Donis. . Referring Provider: Jordy Veronika Keller, [address], [place], [address]. tel:[phone], [place], [place], [address], tel:[phone] Guion No Information Ryanne Mueller. [address] [facility], [address], [place], [facility], . tel:[phone] [facility] [address], [place], [place], [address], tel:[phone] Gu[place] No Information Ezekiel Donis. . Referring Provider: Jordy Veronika Keller, [address], [place], [address]. tel:[phone] [facility] [address], [place], [place], [address], tel:[phone] Guion No Information Ryanne Mueller. [address] [facility], [address], [place], [place], [facility], . tel:[phone] [facility] [address], [place], [place], [address], tel:[phone] Guion No Information Ezekiel Donis. . Referring Provider: Jordyteresa Keller, [address], [place], [address]. tel:[phone] [facility], [address], [place], [place], [address], [place] tel:[phone] Gu[place] No Information Hisky Oscar. . [facility], [address], [place], [place], [address], [place] tel:[phone] Dm No Information Ezekiel Donis. . Referring Provider: Jordy Keller, [address], [place], [address]. tel:[phone] [facility], [address], [place], [place], [address], [place] tel:[phone] Dm No Information Hisky Oscar. . [facility], [address], [place], [place], [address], [place] tel:[phone] Dm No Information Hisky Oscar. . [facility], [address], [place], [place], [address], [place] tel:[phone] Gu[place] No Information Ezekiel Donis. . Referring Provider: Jordy Keller, [address], [place], [address]. tel:[phone] [facility], [place], [place], [address], [place] tel:[phone] Dm No Information Ezekiel Donis. . Referring Provider: Jordy Keller, [address], [place], [address]. tel:[phone] [facility], [place], [place], [address], [place] tel:[phone] Guion No Information Hisky Oscar. . [facility], [place], [place], [address], [place] tel:[phone] Dm No Information Ezekiel Donis. . [facility] [facility] [address], [place], [place], [address], tel:[phone] Dm No Information Ryanne Mueller. [address] [facility], [address], [place], [place], [facility], [place]. tel:[phone] [facility], [address] [facility], [place], [place], [address], [place] tel:[phone] Gu[place] No Information Lamberto Mayers. . [facility] [facility] 300, [place], [place], [address], tel:[phone] Dm No Information Jose Juan Oscar. . [facility] [facility] [address], [place], [place], [address], [place] tel:[phone] Dm No Information Jose Juan Oscar. . [facility], [address] [facility] [address], [place], [place], [address], [place] tel:[phone] Gu[place] No Information Ezekiel Donis. . [facility] [facility] 300, [place], [place], [address], [place] tel:[phone] Dm No Information Jeremi Cruz. . [facility] [facility] [address], [place], [place], [address], [place] tel:[phone] Guion No Information Ryanne Mueller. [address] [facility], [address], [place], [place], [facility], . tel:[phone] [facility] [facility] 300, [place], [place], [address], [place] tel:[phone] Dm No Information Ezekiel Donis. . [facility], [address] [facility] 300, [place], [place], [address], tel:[phone] Dm No Information Ezekiel Donis. . [facility] [facility] [address], [place], [place], [address], tel:[phone] Guion No Information Jeremi Cruz. . [facility] [facility] 300, [place], [place], [address], tel:[phone] Dm No Information Jose Juan Moore. . [facility] [facility] 300, [place], [place], [address], tel:[phone] Guion No Information Ezekiel Donis. . Family History Family Member Type Diagnosis Age At Onset No Information Payers Payer name Insurance type Covered libertarian ID Authorakira zamora(s) Jermaine Cerda Social History [...]
[2025-05-23 14:47] VITALS: BMI 42.1
--- NOTE | 2025-05-23 14:57 | PC.NURSE ---
[facility] has started construction of its new state of the art ER which will open Spring 2026. With this, we anticipate parking may be a challenge for some our surgical patients and families. Parking spaces are limited but are available for all Surgical, obstetrics, and ER patients sharing this lot. If you arrive and find you are having a hard time finding a parking space, please note that we understand the challenges, please drive around the hospital and park near Hospital Entrance [address]. When you enter this entrance, you can ask a volunteer to direct or take you back to the surgical waiting area to check in. We appreciate everyone?s understanding of these expected challenges while we build for your future. Report to the Outpatient Waiting Room, entrance under the green pavilion located off [address], at time _1000_ on date _[phone]_. Planned Procedure Time: _1200_.? Time changes happen often and if your time is changed the preop area will call you the afternoon before. - You and your visitor will be asked to self-screen and do not enter if you have any COVID symptoms. Please call surgeon if you need to reschedule. - A mask is optional within the hospital at this time. Patients may have clear liquids (water, carbonated beverages, clear teas, apple juice) until 3 hours prior to surgery with a maximum of 20 ounces. - No food from midnight until time of surgery and no smoking, or chewing tobacco (or any form of nicotine). No chewing gum, candy or mints. Take only the following medications with a SIP of water on the morning of surgery: ___Tylenol if needed DO NOT STOP ANY OF YOUR OTHER PRESCRIPTION MEDICATIONS PRIOR TO SURGERY EXCEPT THE FOLLOWING Hold all vitamins and supplements for 3 days per anesthesiologist. Medications to discontinue per physician Please ask Dr Houston's office if ok to take Ibuprofen or if need to hold. Date to take last dose Holding Jt since 05-13-2025 Please no make-up, nail bulgarian, hairspray, perfume, deodorant, or body powder the day of surgery.? No jewelry (including any body piercings) or valuables the day of surgery, leave them at home.? Please take a shower or bath the night before, or the morning of, surgery with an antibacterial soap.? Wear comfortable, loose fitting clothing.? - Jewelry must be removed prior to entering the operating room.? Rings and piercings that are not removed may be cut off. - The hospital will not accept responsibility for valuables.? - Please leave all valuables, including medications, at home the day of surgery. If you are going home after surgery, a licensed heavy truck driver must drive you home.? - NO public transportation without another adult if you receive anesthesia. - We recommend that an adult stay with you for 24 hours following discharge. - We also recommend that you do not drive, make important decision, drink alcoholic beverages, or take any drugs that were not prescribed by your health care provider for at least 24 hours after your discharge time. Follow any additional instructions given to you from your surgeon. Telephone instructions given to _Violet___and asked if any additional questions and then verbalized understanding. Patient advised to call surgeon office or pre surgery nurse liaison [phone] if any additional questions.
[2025-05-30] VITALS (9 sets, daily range): BP systolic 108–119; BP diastolic 72–86; PULSE 53–78; RESP 12–18; TEMP 36.1; O2SAT 96–100
--- OUTSIDE RECORDS SUMMARY | 2025-05-30 01:00 | XMS_ITS | Clinical Summary ---
Author Organization [facility] Address [address] [place] [id number] Care Team Providers Care Deputy Assessor Name Role Phone Los Luque MD Primary Care Provider [phone] Tucker Esquivel MD, Baldomero Malik Unavailable [phone]- [phone] Allergies Active Allergy Reactions Criticality Noted Date [...] D) 50,000 unit capsule Take 1 capsule twice weekly 24 capsule 3 5 Active tirzepatide (Mounjaro) 7.5 mg/0.5 mL pen injector injection Inject 0.5 mL (7.5 mg total) under the skin every 7 days 2 mL 6 5 Active hydrOXYzine (ATARAX) 25 mg tablet Take 1 tablet (25 mg total) by mouth 2 (two) times a day as needed for itching 90 tablet 5 Active rimegepant (NURTEC ODT) tablet,disinte gratingIndicat ions:Migraine Place 1 tablet (75 mg total) under the tongue daily as needed (headache) 8 tablet 5 Active rimegepant (NURTEC ODT) tablet,disinte gratingIndicat ions:Migraine Place 1 tablet (75 mg total) under the tongue daily as needed (headache) 8 tablet 5 025 Discontin ued(Reord er) Active Problems Problem Noted Date Diagnosed Date Rash 04/12/2025 Assessment & Plan (04/12/2025 12:48 PM CDT): Interesting rash. No in sex noted with stone circular sawyer exam at home. She does note it has been improving. Will continue to we wash clothes that she use the new fabric softener on. Will also extend Bactrim for a few more days. Can also attempt decolonization for any bacterial component with Hibiclens at home. Will send in Atarax for the itching. Recommend follow-up with Dermatology. She is in agreement with plan and states understanding. Lipid screening 12/15/2024 Assessment & Plan (12/15/2024 [...] 07/09/2024 Assessment & Plan (07/09/2024 12:56 PM LAWN AND GARDEN TECHNICIAN): No improvement with cefdinir. Prescribed a course [...] 07/09/2024 Assessment & Plan (07/09/2024 12:56 PM LAWN AND GARDEN TECHNICIAN): See discussion above. Insulin resistance 04/06/2024 Assessment & Plan (12/29/2024 3:51 PM CDT): Chronic problem, improving with Mounjaro use. She prefers to stay at 5 mg dose now since still losing weight. If plateaus or she wants to increase dose let us know and we can send in 7.5 mg rx. Has h/o PCOS, with ovarian cysts, recent surgery for one. She has Nexplanon but planning to get it taken out as it causes constant bleeding. 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 She does not desire right now (possibly in next 1-2 years) so recommend she use condoms if Nexplanon removed. We also discussed metformin as an option although would still not be contraception which she understands. Assessment & Plan (08/10/2024 11:16 AM LAWN AND GARDEN TECHNICIAN): Chronic problem. She did very well with [...] exercise. Assessment & Plan (08/10/2024 11:16 AM LAWN AND GARDEN TECHNICIAN): Continue working on healthy diet and exercise, [...] home. Assessment & Plan (10/24/2023 12:17 PM LAWN AND GARDEN TECHNICIAN): Started on lisinopril July, she has had a dry cough since then. Will discontinue lisinopril and start losartan 25 mg daily. Encouraged patient to continue checking blood pressure periodically at home she will notify office for readings consistently greater than 130 systolic. Muscle strain 10/24/2023 Assessment & Plan (10/24/2023 12:19 PM LAWN AND GARDEN TECHNICIAN): Continue tramadol. Instructed patient to continue ibuprofen [...] 10/24/2023 Assessment & Plan (10/24/2023 12:20 PM LAWN AND GARDEN TECHNICIAN): Discontinue nystatin. Recommended use of ketoconazole shampoo such as Selsun blue to affected areas a few times per week. Thoroughly dry skin after bathing. Apply clotrimazole cream twice daily, this can be purchased [id number]. Follow- up if no improvement. Upper respiratory tract infection 10/24/2023 Assessment & Plan (10/24/2023 12:27 PM LAWN AND GARDEN TECHNICIAN): Patient with nasal congestion and sinus pressure [...] 08/05/2023 Assessment & Plan (08/05/2023 1:33 PM LAWN AND GARDEN TECHNICIAN): Recommend OTC hydrocortisone to area. Will also place referral to remote broadcast engineer for testing. Family history of early CAD 08/05/2023 Assessment & Plan (08/05/2023 1:33 PM LAWN AND GARDEN TECHNICIAN): Start lisinopril. Lipid panel ordered. Will also place referral to Cardiology as dad had 1st [place] in his 30s. 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 Taking 50k weekly and her D is lower. Increase to twice weekly. Assessment & Plan (12/15/2024 7:53 AM CDT): Following with endocrinology. Encouraged to take with high fat food. Will continue to follow. Assessment & Plan (08/10/2024 11:15 AM LAWN AND GARDEN TECHNICIAN): Continue 50k weekly. Assessment & Plan (06/10/2024 6:20 PM CDT): Vitamin-D = 27 despite weekly vitamin-D supplementation. Assessment & Plan (04/06/2024 12:59 PM CDT): Chronic, uncontrolled Restart ergocalciferol 50 K once a week Assessment & Plan (12/16/2023 5:40 PM CDT): Taking 10,000 international units daily since 07/2023 Will check labs today plan for referral if no improvement. Assessment & Plan (08/05/2023 1:32 PM LAWN AND GARDEN TECHNICIAN): Not currently taking supplement. Will check vitamin-D level and plan accordingly. Cystic fibrosis 08/04/2023 Overview (08/04/2023): Carrier - FOB - neg. Physical exam, annual 03/21/2023 Assessment & Plan (06/10/2024 6:21 PM CDT): Preventive exam; reviewed recommended preventive screenings and vaccinations. Encourage annual flu vaccine. Wear sunscreen/protective clothing when outdoors. -scheduled with water gas operator later this week Assessment & Plan (03/21/2023 9:47 AM CDT): Preventive exam; reviewed recommended preventive screenings and vaccinations. Encourage annual flu vaccine. Wear sunscreen/protective clothing when outdoors. hypertension 03/21/2023 Assessment & Plan (08/05/2023 1:32 PM LAWN AND GARDEN TECHNICIAN): Will start lisinopril. Reviewed lifestyle recommendations as well. Labs ordered. Will continue to monitor. Red flags reviewed. Assessment & Plan (03/21/2023 9:47 AM CDT): Reviewed hospitalization records and labs. Blood pressure is well controlled with current regimen, labetalol 200 mg t.i.d.. Patient is following with water gas operator now, Dr. Sugar purvis. LFTs trending down and hospital discharge, plan to repeat labs in 2 weeks. Follow up with water gas operator scheduled 04/01/2023. Patient continues to have mild nausea with dull headache, prescribed Zofran p.r.n. scheduled for follow-up with Neurology 05/13/2023 Mixed hyperlipidemia 03/21/2023 Assessment & Plan (08/04/2023 3:42 PM LAWN AND GARDEN TECHNICIAN): Most recent lipid panel reviewed. Continue to [...] (08/04/2023): Added automatically from request for surgery [id number] Added automatically from request for surgery [id number] Gestational diabetes mellitus, class A2 03/12/20 Overview (08/04/2023): 5/30 - 32u NPH @ HS. h/o GDMa2. testing 01/21 32u NPH @ HS. h/o GDMa2. testing [...] Encounters Date Type Department Care Team Description 04/12/2025 11:00 AM CDT [facility] [address] [address] Addis Reddy NP Rash 04/05/2025 6:15 PM CDT Office Visit [facility] at [address] [place] [id number] Kimmie Montaño NP Sore throat (Primary Dx); Suspected COVID-19 virus infection; Acute nasopharyngitis; Rash 03/30/2025 9:35 AM CDT Lab [facility] [address] [place] [phone] Abnormal bruising; Vitamin D deficiency 03/30/2025 Results Follow-Up [facility] [address] [phone] Renata Madison, MEGHA Vitamin D 25 hydroxy, Ferritin, Iron profile w/ IBC, Additional followed-up results: 2 03/25/2025 Telephone [facility] Medicine Scheduling [address] [place] [address] Talita Vallejo 03/05/2025 Results Follow-Up [facility] at [address] [place] [address] Nida Marlow NP Aerobic and anaerobic culture and gram stain Abscess Groin 03/04/2025 11:16 AM CDT - 03/04/2025 11:59 PM CDT Hospital Encounter [address] [address] Abscess of groin, left Discharge Disposition: Discharge to home or self care 03/04/2025 10:30 AM CDT Office Visit [facility] at [address] [place] [address] Nida Marlow NP Abscess of groin, left (Primary Dx) from Last 3 Months Immunizations Immunization Administration [...] (Menactra) 06/12/2015,2008 Tdap 01/29/2023, 1,09/17/2016,04/05 Varicella 05/04/2012,12/27/2002 Surgical History Surgery Date Site/Laterality [...] drink = 0.6 oz pur e alcohol) [facility] [employer] Answer Date Recorded In the past 12 months has e [employer], gas, oil, or water [place] threatened to shut off services in your [...] or ex-partner? No 11/02/2024 Social Connection and Isolation Panel Answer Date Recorded In a typical week, how many times do you talk on the phone with family, friends, or neighbors? More than three times a week 11/02/2024 How often do you get togethe r with friends or relatives? More than three times a week 11/02/2024 How often do you attend chur ch or samaritan services? Never 11/02/2024 Do you belong to any clubs o r organizations such as pentecostal groups, unions, fraternal or athletic groups, or [...] points, staff should administer the PHQ-9) 0 04/12/2025 [facility] - Occupational Stress [...] any time in the past 12 m [facility], were you homeless or living in a long term (including now)? No 11/02/2024 Personal Safety Answer [...] Sign Reading Time Taken Comments Blood Pressure 122/74 04/12/2025 10:53 AM CDT Pulse 92 04/12/2025 10:53 AM CDT Temperature 36.7 C (98 F) 04/12/2025 10:53 AM CDT Respiratory Rate 18 04/12/2025 10:53 AM CDT Oxygen Saturation 99% 04/12/2025 10:53 AM CDT Inhaled Oxygen Concentration - - Weight 104.8 kg (231 lb) 04/12/2025 10:53 AM CDT Height 157.5 cm (5' 2) 04/12/2025 10:53 AM CDT Body Mass Index 42.25 04/12/2025 10:53 AM CDT Plan of Treatment Health Maintenance Due Date Last Done Comments Cervical Cancer Screening 1997 Hepatitis C Screening 1997 Covid-19 Vaccine ( season) 2025 01/15/2021, 12/25/2020 Influenza Vaccine (#1) 2025 , 06/08/2022, 06/25/2021, Additional history exists Regular Well Visit/Exam 18-64 06/10/2025 06/10/2024, 03/21/2023 Depression Screening 04/12/2026 04/12/2025, 11/02/2024, 11/02/2024, Additional history exists DTaP/Tdap/Td Vaccine (11 - Td or Tdap) 01/29/2033 01/29/2023, 02/05/2021, 09/17/2016, Additional history exists Hepatitis B Screening Completed 05/03/1998 , 05/03/1998, 1997, Additional history exists Varicella Vaccines Completed 05/04/2012, 12/27/2002 HPV Vaccines Completed 03/03/2013, 06/25, 05/04/2012, Additional history exists Pneumococcal vaccine <65 Aged Out No longer eligible based on patient's age to complete this topic Procedures Procedure Name Priority Date/Time Associated Diagnosis Comments POC INFLUENZA A/B, COVID-19 ANTIGEN Routine 04/05/2025 6:48 PM CDT Sore throat Suspected COVID-19 virus infection POCT RAPID STREP Routine 04/05/2025 6:47 PM CDT Sore throat Suspected COVID-19 virus infection DIFFERENTIAL AUTO Routine 03/30/2025 10: 06 AM CDT Abnormal bruising CBC WITH AUTO DIFFERENTIAL Routine 03/30/2025 10:06 AM CDT Abnormal bruising IRON PROFILE W/ IBC Routine 03/30/2025 1 0:06 AM CDT Abnormal bruising FERRITIN Routine 03/30/2025 10:06 AM CDT Abnormal bruising VITAMIN D 25 HYDROXY Routine 03/30/2025 10:06 AM CDT Abnormal bruising Vitamin D deficiency AEROBIC AND ANAEROBIC CULTURE AND GRAM STAIN Routine 03/04/2025 11:16 AM CDT Abscess of groin, left from Last 3 Months Results * POC Influenza A/B, COVID-19 antigen (04/05/2025 6:48 PM CDT) Influenza A Ag, POC Negative Negative [facility] Influenza B Ag, POC Negative Negative [facility] COVID-19 Ag POC Presumptive Negative Presumptive Negative, Invalid [facility] Nasal 04/05/2025 6:48 PM CDT Kimmie Montaño NP POINT OF CARE TEST ORDERAB LES Final Result [facility] [address] [place] [address], [facility] * POCT rapid strep A (04/05/2025 6:47 PM CDT) Pathologist [facility] Rapid Strep A, POC Negative Negative Swab 04/05/2025 6:47 PM CDT Kimmie Montaño ELECTRONIC DATA INTERCHANGE SPECIALIST POINT OF CARE TEST ORDERAB LES Final Result * Differential, auto (03/30/2025 10:06 AM CDT) Pathologist [facility] Neutrophil abs 3.24 1.50 - 6.50 K/cumm Comment:Testing performed by : [facility], [address] [place] [address], [id number] Imm gran abs 0.01 0.00 - 0.10 K/cumm [facility] ([place]) Comment:Testing performed by : [address], [address] Lymphocyte abs 1.57 0.80 - 3.30 K/cumm [facility] ([place]) Comment:Testing performed by : [facility], [address] [place] [address], [id number] Monocyte abs 0.55 0.20 - 0.80 K/cumm [facility] ([place]) Comment:Testing performed by : [address], [address] Eosinophil abs 0.03 0.00 - 0.50 K/cumm [facility] ([place]) Comment:Testing performed by : [address], [address] Basophil abs 0.02 0.00 - 0.10 K/cumm [facility] ([place]) Comment:Testing performed by : [facility] [address] [place] [address]., [address] Neutrophil pct 59.7 % [facility] ([place]) Comment: Interpretive Data Percent cell count reference ranges are not reported, since discordance with absolute values may lead to misinterpretation of CBC data. Current Interpretive Data was last revised on 2017. Testing performed by: [facility], [address] [place] [address]., [address] Imm gran pct 0.2 % [facility] ([place]) Comment: Interpretive Data Percent cell count reference ranges are not reported, since discordance with absolute values may lead to misinterpretation of CBC data. Current Interpretive Data was last revised on 2017. Testing performed by: [facility], [address] [place] [address]., [address] Lymphocyte pct 29.0 % [facility] ([place]) Comment: Interpretive Data Percent cell count reference ranges are not reported, since discordance with absolute values may lead to misinterpretation of CBC data. Current Interpretive Data was last revised on 2017. Testing performed by: [facility], [address] [place] [address]., [address] Monocyte pct 10.1 % [facility] ([place]) Comment: Interpretive Data Percent cell count reference ranges are not reported, since discordance with absolute values may lead to misinterpretation of CBC data. Current Interpretive Data was last revised on 2017. Testing performed by: [facility], [address] [place] [address]., [address] Eosinophil pct 0.6 % [facility] ([place]) Comment: Interpretive Data Percent cell count reference ranges are not reported, since discordance with absolute values may lead to misinterpretation of CBC data. Current Interpretive Data was last revised on 2017. Testing performed by: [facility], [address] [place] [address]., [address] Basophil pct 0.4 % [facility] ([place]) Comment: Interpretive Data Percent cell count reference ranges are not reported, since discordance with absolute values may lead to misinterpretation of CBC data. Current Interpretive Data was last revised on 2017. Testing performed by: [address] [address] Blood 03/30/2025 10:0 6 AM CDT 03/30/2025 1:08 PM CDT Renata Madison NP LAB BLOOD ORDERABLES Final Re sult Performing Organization Address [facility]/ZIP Co de Phone Number HARSHAD LI (MAUREEN) 1 [facility] Department [place] [address] * Iron profile w/ IBC (03/30/2025 10:06 AM CDT) Pathologist [facility] Iron 79 35 - 145 mcg/dl Comment:Testing performed by : [facility], [address] [place] [address]., [address] TIBC 262 250 - 400 mcg/dL HARSHAD LI (MAUREEN) Comment:Testing performed by : [facility], [address] [place] [address], [address] Transferrin saturation 30 20 - 50 % HARSHAD LI (MAUREEN) Comment:Testing performed by : [facility], [address] [place] [address], [address] Blood 03/30/2025 10:0 6 AM CDT 03/30/2025 1:08 PM CDT Renata Madison NP LAB BLOOD ORDERABLES Final Re sult Performing Organization Address [facility]/ZIP Co de Phone Number HARSHAD LI (ARGONNE) 1 [facility] Department [place] [address] * CBC with auto differential (03/30/2025 10:06 AM CDT) WBC 5.42 3.80 - 9.90 K/cumm Comment:Testing performed by : [facility], [address] [place] [address]., [address] Hgb 13.8 11.9 - 15.5 g/dL HARSHAD LI (MAUREEN) Comment:Testing performed by : [facility], [address] [place] [address]., [address] Hct 42.0 35.6 - 45.5 % HARSHAD LI (MAUREEN) Comment:Testing performed by : [facility], [address] [place] [address]., [address] Plt 259 150 - 400 K/cumm [facility] ([place]) Comment:Testing performed by : [address], [address] MPV 10.8 9.1 - 12.3 fL [facility] ([place]) Comment:Testing performed by : [address], [address] RBC 4.71 3.90 - 5.20 M/cumm [facility] ([place]) Comment:Testing performed by : [facility], [address] [place] [address], [address] MCV 89.2 81.3 - 96.4 fL [facility] ([place]) Comment:Testing performed by : [address], [address] MCH 29.3 27.1 - 33.3 pg [facility] ([place]) Comment:Testing performed by : [address], [address] MCHC 32.9 32.3 - 35.7 g/dL [facility] ([place]) Comment:Testing performed by : [address], [address] RDW CV 13.0 11.1 - 14.9 % [facility] ([place]) Comment:Testing performed by : [address], [address] RDW SD 42.9 35.7 - 48.1 fL [facility] ([place]) Comment:Testing performed by : [address], [address] NRBC abs 0.00 0.00 - 0.01 K/cumm [facility] ([place]) Comment:Testing performed by : [address], [address] Blood 03/30/2025 10:0 6 AM CDT 03/30/2025 1:08 PM CDT us Renata Madison NP LAB BLOOD ORDERABLES Final Re sult [facility] ([place]) 1 [facility] Department [place] [employer] [place] [address] * (ABNORMAL) Vitamin D 25 hydroxy (03/30/2025 10:06 AM CDT) [facility] Vitamin D 25-OH 20(L) 30 - 80 ng/mL Comment:Testing performed by : [facility], [address] [place] [address], [address] Blood 03/30/2025 10:0 6 AM CDT 03/30/2025 1:08 PM CDT Renata Madison ELECTRONIC DATA INTERCHANGE SPECIALIST LAB BLOOD ORDERABLES Final Re sult HARSHAD LI (ARGONNE) [address] [place] [address] [place] [address] * Ferritin (03/30/2025 10:06 AM CDT) [facility] Ferritin 106 13 - 150 ng/mL Comment:Testing performed by : [facility], [address] [place] [address], [address] Blood 03/30/2025 10:0 6 AM CDT 03/30/2025 1:08 PM CDT Renata Madison ELECTRONIC DATA INTERCHANGE SPECIALIST LAB BLOOD ORDERABLES Final Re sult HARSHAD LI (ARGONNE) [address] [place] [address] * (ABNORMAL) Aerobic and anaerobic culture and gram stain Abscess Groin (03/04/2025 11:16 AM CDT) [facility] Direct Specimen Exam Stain: Rare polymorphonuclear leukocytes seen. Abundant Gram Positive Cocci Moderate Gram Negative Bacilli Comment:Testing performed by : [facility], [address] [facility] [place] [address] Report Final Report: Moderate Mixed aerobic and anaerobic microorganisms (.) [facility] Comment:Testing performed by : [facility], [address] [facility] [place]., [address] Organism MIXED AEROBIC AND ANAEROBIC MICROORGANISMS [facility] Abscess (Groin) 03/04/2025 1 1:16 AM CDT 03/04/2025 8:35 PM CDT Narrative HARSHAD CANCHOLA - 03/09/2025 7:53 AM CDT Specimen received on an ESwab. Testing performed by [facility] Microbiology Laboratory ([phone]) Specimens submitted from normally sterile body sites will have all bacterial morphotypes identified. Specimens that contain grossly mixed freddie and/or are from body sites that are not normally sterile will be examined for Staphylococcus aureus, Pseudomonas aeruginosa, beta-hemolytic strep, vancomycin-resistant Enterococcus, Bacteroides, Parabacteroides, Clostridium perfringens and fungus. If any of these are isolated, the organism will be reported. Current interpretive data was last revised on 2019. us Nida Marlow NP LAB MICROBIOLOGY - GENERAL ORD ERABLES Final Result [facility] [address] Department [place] [address] from Last 3 Months Insurance [facility] PLUS IDPA [facility] CHOICE PLUS IDPA [facility] CHOICE PLUS IDPA Care Teams Deputy Assessor Relationship Specialty Start Date End Date Los Luque MD [address] [place] [address] PCP - General Family Medicine 01/07/22 [place] [address] [facility] [address] [place] [address] Consulting Physician Orthopedic Surgery 01/22/24
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
--- OUTSIDE RECORDS SUMMARY | 2025-05-30 01:00 | XMS_ITS | Encounter Summary ---
Author Organization [facility] Address [address] [place] [address] Care Team Providers Care Hub Borer Name Role Phone David Esquivel DO Primary Care Provider [phone] Robbie Gray MD Unavailable [phone] Encounter Details Date Type Department Care Team (Late st Contact Info) Description 03/28/2022 Ophth Exam [facility] [address] [place] [phone] Adams Magallon MD [facility] [id number] Social History Tobacco Use Types [...] on filedocumented in this encounter Care Teams Hub Borer Relationship Specialty Start Date End Date David Esquivel DO [address] [place] [address] PCP - General Family Medicine 04/22/21 Robbie Gray MD [address] [place] [phone] PCP - Attributed-[facility] Medicaid [place] 11/30/21 09/11/23 documented as of this encounter
--- OUTSIDE RECORDS SUMMARY | 2025-05-30 01:00 | XMS_ITS | Clinical Summary ---
Author Organization [facility] [employer] Address [address] [place] [address] Care Team Providers Care Table Games Dealer Name Role Phone EsquivelDavid parra DO Primary Care Provider [phone] Source Comments [facility],non-owned Affiliates and Associated Physician Practices is amultiple site organization consisting of ambulatory clinics and hospital sitesin [place], [place], [place] and [place]. This disclosure is being madepursuant to the Care Everywhere program and may not contain all information available regarding this patient. Last updated 18.[facility] [employer] Allergies Active Allergy Reactions Criticality Noted Date [...] (04/17/2022): Added automatically from request for surgery [id number] Pre-eclampsia, severe, with delivery 04/09/2021 Gestational diabetes [...] 5:23 PM CDT Height 157.5 cm (5' 2) 03/29/2022 5:23 PM CDT Body Mass Index 46.46 03/29/2022 5:23 PM CDT Plan of Treatment Health Maintenance Due Date Last Done Comments HIV SCREENING 2012 HEPATITIS C SCREENING 09/30/2015 DTAP/TDAP/TD VACCINES (1 - Tdap) 2016 HEPATITIS B VACCINE (1 of 3 - 19+ 3-dose series) 2016 PAP SMEAR 2018 DEPRESSION SCREENING 08/25/2024 HPV VACCINE (1 - 3-dose SCDM series) 2024 COVID-19 VACCINE ( - 2024- season) 2025 01/15/2021, 12/25/2020 INFLUENZA VACCINE (#1) 2025 , 06/16/2020, 09/17/2016, Additional history exists ZOSTER VACCINE [...] complete this topic Insurance MEDICAID - [place] [facility] Advance Directives * Full Code (Latest Code Status on File) Date Activated Date Inactivated Comments 03/29/2022 1:06 AM 03/30/2022 1:57 PM * Full Code Date Activated Date Inactivated Comments 03/28/2022 4:45 PM 03/29/2022 1:06 AM Care Teams Table Games Dealer Relationship Specialty Start Date End Date David Esquivel DO [address] [place] [address] PCP - General Family Medicine 04/22/21
--- OUTSIDE RECORDS SUMMARY | 2025-05-30 01:01 | XMS_ITS | Clinical Summary ---
Author Organization [facility] Address [address] [place] [address] Phone Care Team Providers Care Guest Room Attendant Name Role Phone MAIKEL ARREDONDO, ROSSY Holland Primary Care Provider [phone] Reason for Visit and Chief Complaint The Chief Complaint is: PT IS COVID POS. PT C/O EAR PRESSURE, FEELS LIKE FLUID IN THEM, RT ONE IS CLOGGED Problems Includes: Problems addressed during this encounter and other active Problems All Visits Onset Date Resolved Date Provider Condition S tatus 07/12/2022 CANDY MONTANO [employer] Act krishna Last Documented On 2 9:34AM ; [facility] 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 Migrainosus 07/12/2015 FELIPA DAVIS [employer]-BC Active Last Documented On 5 6:11PM ; [facility] Note: Unchanged Plan of Treatment - The options include close observation - Last Documented On 07/14/2023 5:30PM ; [facility] - Watch for signs/symptoms of infection, return to the clinic if seen - Last Documented On 07/14/2023 5:30PM ; [facility] Instructions to patient Watch for signs/symptoms of infection, return to the clinic if seen Last Documented On 3 4:53PM ; [facility] Assessments Includes: Assessments from this encounter Findings - Acute suppurative otitis media of both ears [Acute suppurative otitis media without spontaneous rupture of ear drum, bilateral] - Last Documented On 07/14/2023 5:30PM ; [facility] Instructions Includes: Instructions from this encounter Instructions to patient Watch for signs/symptoms of infection, return to the clinic if seen Last Documented On 3 4:53PM ; [facility] Medical Equipment - Implanted Devices Includes: Current Devices No Medical Equipment Recorded Medications Includes: Medications discussed during this encounter and other current Medications New / Renewed during this visit CANDY POWELL on 07/14/2023 Azithromycin 250 MG Oral Tablet Provider: CANDY Bains 5 day supply: 6 tablet, 0 refills Diagnosis: Acute suppr otitis media w/o spon rupt ear drum, bilateral Take two tablets on day 1. T hen, take one tablet on day 2-5 [address]acy: [address], [phone] - Last Documented On 07/14/2023 5:02PM By Candy MAYES ; [facility] Current Medications (continue as prescribed) Lisinopril 10 MG Oral Tablet 08/04/2023 Provider: BRAVO DILL NP Diagnosis: Last Documented On 09/26/2023 7:15PM By Mireya Carrillo MA ; [facility] Nexplanon 68 MG Subcutaneous Implant 07/14/2023 Prov ider: Diagnosis: Last Documented On 07/14/2023 4:40PM By Mireya Carrillo MA ; [facility] Vitamin D (Ergocalciferol) 76864 UNIT Oral Capsule Provider: Diagnosis: once weekly Last Documented On 2 12:03PM By BYRON SCOTT ; [facility] GoodSense Vitamins 28-0.8 MG Oral Tablet 12/24 Provider: Diagnosis: PRN Last Documented On 2 11:22AM By BYRON SCOTT ; [facility] EQ Ibuprofen 200 MG Oral Tablet 09/17/2019 Provider: Diagnosis: 3 tablets Q8H Last Documented On 0 3:05PM By Pili POWELL ; [facility] Tylenol 325MG Oral Tablet 02/08/2019 Provider: Diagnosis: PRN-fever & pain Last Documented On 9 10:29AM By BYRON SCOTT ; [facility] Singulair 10MG Oral Tablet 10/14/2017 Provider: SHANT Samaniego Diagnosis: Allergic rhiniti s due to pollen One tablet daily Last Documented On 8 2:46PM By SHANT STRATTON PA-C ; [facility] ProAir HFA 108 (90 Base)MCG/ ACT Inhalation Aerosol Solution 08/24/2017 Provider: PILI GARZA [employer]- Diagnosis: Wheezing use as directed 2 puffs every 4-6 hours as neede d Last Documented On 7 1:23PM By PILI CALIXTO [facility]- ; [facility] Past Medications on file Zofran 8 MG Oral Tablet 12/20/2019 - 12/25/2019 Provid er: RODDY DELAROSA PA-C Diagnosis: 1 tab po q 8 hrs PRN. Last Documented On 0 9:47AM By RODDY DELAROSA PA-C ; [facility] Topamax 50 MG Oral Tablet 12/17/2019 - 02/15/2020 Prov ider: RODDY DELAROSA PA-C Diagnosis: One tablet twice a day--this is an increase. Last Documented On 0 9:49AM By RODDY DELAROSA PA-C ; [facility] Cyclobenzaprine HCl 10 MG Oral Tablet 12/03/2019 - 12/08/2019 Provider: LUIZ JAIMES MD Diagnosis: One tablet daily muscle relaxer Last Documented On 0 11:50AM By LUIZ ROLON MD ; [facility] Aviane 0.1-20 MG-MCG Oral Tablet 11/17/2019 - 02/09/2020 Provider: RUTHANN ROMANO RN MEGHA Diagnosis: Encounter for in itial prescription of contraceptive pills One tablet daily TAKE DIR ECTED START Friday AFTER NEXT MENSES back up method pack one Last Documented On 0 11:58AM By RUTHANN ROMANO MEGHA- ; [facility] Medications Administered Includes: Administered Medications from this encounter No Administered Medications Recorded Vital Signs Includes: Vital Signs from this encounter Vital Name 07/14/2023 04:41P Blood Pressure Sitting L 104/80 BP Cuff Size Large Pulse Rate-Sitting (bpm) 80 Respiration Rate (breaths/min) 21 Temp-Oral (F) 98.6 Height (in) 62 Weight (lb) 255.2 Body Mass Index 46.7 Body Surface Area 2.1 Oxygen Saturation (%) 99 Last Documented: On 07/14/2023 4:42PM ; [facility] Results Includes: Results discussed during this encounter No Results Recorded For Specified Dates History of Present Illness Includes: History of Present Illness from this encounter HPI JESSICA SPANGLER is a 27 year old female. - Allergy list reviewed - Medication list reviewed - Fever low (under 100 F by thermometer) - Not feeling poorly (malaise) - No chills - Headache - Sinus pain - No swollen glands in the neck - Earache in right ear - In left ear - The ears feel pressured on the right - On the left - Nasal discharge - Nasal passage blockage (stuffiness) - Sore throat - No postnasal drip - No sneezing - No nasal itching - No chest pain or discomfort - No dyspnea - No cough - No wheezing - Normal appetite - No nausea - No vomiting - No abdominal pain - No diarrhea Jessica is a 27-year-old female patient that presented to the walk-in clinic for bilateral ear pain and pressure-right worse than the left. She reports that she tested positive for COVID on 07/12/2023. She has been taking multiple OTC medications without relief. Social History Description Last Updated Tobacco non-user 07/14/2023 Last Documented On 3 5:30PM ; [facility] Smoking Status Unknown Procedures and Surgical History Includes: Procedures from this encounter Procedures Code Diagnosis Performing Provider Service L ocation Service Date Pt to use OTC fever/pain product as needed per product instruction.~ Last Documented On 3 4:53PM ; [facility] plan of care reviewed and agreed to Last Documented On 3 4:53PM ; [facility] use of tobacco assessment performed 1000F Last Documented On 3 4:41PM ; [facility] Medical History Includes: Medical History addressed during this encounter Description Last Updated Taking OTC medications 07/14/2023 Last Documented On 3 5:30PM ; [facility] Family History Includes: Family History addressed during this encounter No Family History Recorded Review of Systems Includes: Review of Systems from this encounter Systemic: Fever low (under 100 F by thermometer). Head: Headache. Otolaryngeal: Earache. No discharge from the ears. Nasal discharge and sore throat. Cardiovascular: No chest pain or discomfort. Pulmonary: Cough. No wheezing. Gastrointestinal: No vomiting, no abdominal pain, and no diarrhea. Neurological: No dizziness. Skin: No skin lesions. Mental Status Includes: Mental Status from this encounter No Mental Status Recorded Functional Status Includes: Functional Status from this encounter No Functional Status Recorded Physical Exam Includes: Physical Exam from this encounter Allergies Includes: Active Allergies Substance Type Reaction Onset Date Resolved Date Statu s Vicodin Allergy Skin Rashes / Eruption of skin 5 Active Last Documented On 4 7:16PM ; [facility] Penicillins Allergy Skin Rashes / Er uption of skin, Shortness of Breath / Dyspnea, keflex is ok 06/09/2013 Active Last Documented On 4 7:16PM ; [facility] Macrobid Allergy Skin Rashes / Eruption of skin, Nausea 0 03/07/2015 Active Last Documented On 4 7:16PM ; [facility] Doxycycline Hyclate Allergy Skin Rashes / Eruption of skin, Hives / Urticaria 07/08/2013 Active Last Documented On 4 7:16PM ; [facility] Amoxicillin Allergy Skin Rashes / Er uption of skin, Shortness of Breath / Dyspnea, does have epi pen 03/07/2015 Acti ve Last Documented On 4 7:16PM ; [facility] Encounters Encounter Provider Location Date Check-In Time Check-Out Time Diagnosis COVID SICK VISIT- ESTABLISHED PATIENT CANDY Tolbert CHARMAINE JAYP-C [facility] 07/14/20 23 4:05PM 4:52PM Otitis Media Acute Suppurative Both Ears Insurance Includes: Active Insurance Policies Plan Name Member ID Group # Subscriber Relationship Effect krishna Dates 1 - [facility] [id number] GARRY SPANGLER horace 2 - MEDICAID [place] [facility] [id number] JESSICA SPANGLER Self Clinical Notes Includes: Clinical Notes from this encounter * Progress note Date Encounter Last Documented by 07/14/2023 COVID SICK VISIT- ESTABLISHED IRINA VIOLETA Last documented on 07/14/2023; 5:30 PM, CANDY POWELL; [facility] Chief Complaint The Chief Complaint is: PT IS COVID POS. PT C/O EAR PRESSURE, FEELS LIKE FLUID IN THEM, RT ONE IS CLOGGED. History of Present Illness JESSICA SPANGLER is a 27 year old female. - Allergy list reviewed - Medication list reviewed - Fever low (under 100 F by thermometer) - Not feeling poorly (malaise) - No chills - Headache - Sinus pain - No swollen glands in the neck - Earache in right ear - In left ear - The ears feel pressured on the right - On the left - Nasal discharge - Nasal passage blockage (stuffiness) - Sore throat - No postnasal drip - No sneezing - No nasal itching - No chest pain or discomfort - No dyspnea - No cough - No wheezing - Normal appetite - No nausea - No vomiting - No abdominal pain - No diarrhea Jessica is a 27-year-old female patient that presented to the walk-in clinic for bilateral ear pain and pressure-right worse than the left. She reports that she tested positive for COVID on 07/12/2023. She has been taking multiple OTC medications without relief. Current Medication - EQ Ibuprofen 200 MG Oral Tablet as directed 3 tablets Q8H, 0 days, 0 refills - GoodSense Vitamins 28-0.8 MG Oral Tablet as directed PRN, 0 days, 0 refills - Nexplanon 68 MG Subcutaneous Implant 0 days, 0 refills - ProAir HFA [...] days, 0 refills - Vitamin D (Ergocalciferol) 54909 UNIT Oral Capsule as directed once weekly, 0 days, 0 refills Past Medical/Surgical History Reported: Medications: Taking OTC medications. Social History Tobacco use: Tobacco non-user. Allergies - Amoxicillin Reaction: Shortness of Breath / Dyspnea, Skin Rashes / Eruption of skin, does have epi pen - Doxycycline Hyclate Reaction: , Hives / Urticaria - Macrobid Reaction: Nausea, Skin Rashes / Eruption of skin - Penicillins Reaction: Shortness of Breath / Dyspnea, Skin Rashes / Eruption of skin, keflex is ok - Vicodin Reaction: Skin Rashes / Eruption of skin Review Of Systems Systemic: Fever low (under 100 F by thermometer). Head: Headache. Otolaryngeal: Earache. No discharge from the ears. Nasal discharge and sore throat. Cardiovascular: No chest pain or discomfort. Pulmonary: Cough. No wheezing. Gastrointestinal: No vomiting, no abdominal pain, and no diarrhea. Neurological: No dizziness. Skin: No skin lesions. Physical Findings - Vitals taken 07/14/2023 04:41 pm BP-Sitting L 104/80 mmHg BP Cuff Size Large Pulse Rate-Sitting 80 bpm Respiration Rate 21 per min Temp-Oral 98.6 F Height 62 in Weight 255 lbs 3.2 oz Body Mass Index 46.7 kg/m2 Body Surface Area 2.1 m2 Oxygen Saturation 99 % General Appearance: - Well-appearing. - Well developed. - Well nourished. - Well hydrated. - In no acute distress. Ears: Right Ear: External Auditory Canal: - Normal. - No external auditory canal discharge. Tympanic Membrane: - Examined. - Bulging tympanic membrane. - Erythematous. - No retraction of tympanic membrane. - No perforation. - No PET in place. - No pus behind tympanic membrane. - No serous exudate behind tympanic membrane. Left Ear: External Auditory Canal: - Normal. - No external auditory canal discharge. Tympanic Membrane: - Examined. - Bulging tympanic membrane. - Erythematous. - No retracted tympanic membrane. - No perforation. - No PET in place. - No pus behind tympanic membrane. - No serous exudate behind tympanic membrane. Nose: General/bilateral: Discharge: - Nasal discharge. Sinus Tenderness: - Tenderness of sinuses. Pharynx: Oropharynx: - Soft palate was normal. - Tonsils were not erythematous. - Tonsils were not enlarged. - Tonsils showed no exudate. Lymph Nodes: - Normal. Lungs: - Clear to auscultation. - No inspiratory wheezing was heard. - No expiratory wheezing was heard. Cardiovascular: Heart Rate And Rhythm: - Normal. Heart Sounds: - Normal. Skin: - Normal. - Mucous membranes were not dry. Assessment - Acute suppurative otitis media of both ears [Acute suppurative otitis media without spontaneous rupture of ear drum, bilateral] Therapy - Plan of care reviewed and agreed to. Pt to use OTC fever/pain product as needed per product instruction. . Plan StartCited - Acute suppr otitis media w/o spon rupt ear drum, bilateral Azithromycin 250 MG tablet Take two tablets on day 1. Then, take one tablet on day 2-5, 5 days, 0 refills EndCited - The options include close observation - Watch for signs/symptoms of infection, return to the clinic if seen Practice Management Use of tobacco assessment performed.
--- OUTSIDE RECORDS SUMMARY | 2025-05-30 01:01 | XMS_ITS | Clinical Summary ---
Author Organization [facility] Address [address] [place] [address] Phone Care Team Providers Care Relief Salesperson Name Role Phone MAIKEL ARREDONDO, ROSSY Holland Primary Care Provider [phone] Reason for Visit and Chief Complaint The Chief Complaint is: cough, headache, sore throat Problems Includes: Problems addressed during this encounter and other active Problems All Visits Onset Date Resolved Date Provider Condition S tatus 07/12/2022 ALYSSA MONTANO BRIDGE/[employer] LEADER-C Act krishna Last Documented On 2 9:34AM ; [facility] 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 Migrainosus 07/12/2015 FELIPA DAVIS BRIDGE/[employer] INS[employer]CTION TEAM LEADER-BC Active Last Documented On 5 6:11PM ; [facility] Note: Unchanged Plan of Treatment - Return to the clinic if condition worsens or new symptoms arise - Last Documented On 09/24/2023 12:15PM ; [facility] - Patient will call for appointment as needed - Last Documented On 09/24/2023 12:15PM ; [facility] Instructions to patient Instructions for patient Last Documented On 4 12:08PM ; [facility] Intervention and counseling on cessation of tobacco use Last Documented On 4 8:59AM ; [facility] Assessments Includes: Assessments from this encounter Findings - [J06.9 - Acute upper respiratory infection, unspecified] Acute upper respiratory infection - Last Documented On 09/24/2023 12:15PM ; [facility] Instructions Includes: Instructions from this encounter Instructions to patient Instructions for patient Last Documented On 4 12:08PM ; [facility] Intervention and counseling on cessation of tobacco use Last Documented On 4 8:59AM ; [facility] Medical Equipment - Implanted Devices Includes: Current Devices No Medical Equipment Recorded Medications Includes: Medications discussed during this encounter and other current Medications Current Medications (continue as prescribed) Lisinopril 10 MG Oral Tablet 08/04/2023 Provider: BRAVO DILL NP Diagnosis: Last Documented On 09/26/2023 7:15PM By Mireya Carrillo MA ; [facility] Nexplanon 68 MG Subcutaneous Implant 07/14/2023 Prov ider: Diagnosis: Last Documented On 07/14/2023 4:40PM By Mireya Carrillo MA ; [facility] Vitamin D (Ergocalciferol) 84592 UNIT Oral Capsule Provider: Diagnosis: once weekly Last Documented On 2 12:03PM By BYRON SCOTT ; [facility] GoodSense Vitamins 28-0.8 MG Oral Tablet 12/24 Provider: Diagnosis: PRN Last Documented On 2 11:22AM By BYRON SCOTT ; [facility] EQ Ibuprofen 200 MG Oral Tablet 09/17/2019 Provider: Diagnosis: 3 tablets Q8H Last Documented On 0 3:05PM By Pili Vasques BRIDGE/STRUCTURE INSPECTION TEAM LEADER-C ; [facility] Tylenol 325MG Oral Tablet 02/08/2019 Provider: Diagnosis: PRN-fever & pain Last Documented On 9 10:29AM By BYRON SCOTT ; [facility] Singulair 10MG Oral Tablet 10/14/2017 Provider: SHANT Samaniego Diagnosis: Allergic rhiniti s due to pollen One tablet daily Last Documented On 8 2:46PM By SHANT STRATTON PA-C ; [facility] ProAir HFA 108 (90 Base)MCG/ ACT Inhalation Aerosol Solution 08/24/2017 Provider: PILI GARZA BRIDGE/[employer] INSPECTION TEAM LEADER-BC Diagnosis: Wheezing use as directed 2 puffs every 4-6 hours as neede d Last Documented On 7 1:23PM By PILI MAYES- ; [facility] Medications Administered Includes: Administered Medications from this encounter No Administered Medications Recorded Vital Signs Includes: Vital Signs from this encounter Vital Name 09/24/2023 08:58A Pulse Rate-Sitting (bpm) 85 Temp-Oral (F) 98.1 Height (in) 62 Weight (lb) 263 Body Mass Index 48.1 Body Surface Area 2.1 Oxygen Saturation (%) 97 Last Documented: On 09/24/2023 8:59AM ; [facility] Results Includes: Results discussed during this encounter Group A strep [facility] Ordered by EZE VICKERS APRN on 2023 Collected: Reported: 09/24/2023 09:02 Last Documented On 4 9:02AM ; [facility] Reviewed on 09/24/2023; All test results are final unless otherwise noted. Rapid Strep neg N (Normal) Last Documented On 4 9:02AM ; [facility] LOT # AND EXP. DATE [id number] 05/25/26 N (Normal) Last Documented On 4 9:02AM ; [facility] INT. QC ACCEPTABLE? yes N (Normal) Last Documented On 4 9:02AM ; [facility] History of Present Illness Includes: History of Present Illness from this encounter PHILIPP SPANGLER is a 27 year old female. - Allergy list reviewed - Problem list reviewed - Medication list reviewed - Not feeling fine - Chills - Duration of symptoms one day - No fever - Headache - No sinus pain - No swollen glands on the right side of the neck - Not on the left side - No itching of the eyes - No discharge from the eyes - Sore throat - No earache - The ears do not feel full - No nasal discharge - No postnasal drip - No nasal passage blockage (stuffiness) - No sneezing - No hoarseness - No itchy throat - No bad breath - No chest pain or discomfort - No palpitations - No pounding heartbeat - Cough - Not feeling congested in the chest - No dyspnea - No wheezing - No nausea - No vomiting - No diarrhea - No myalgia Pt presents with complaints of a cough, headache, and sore throat. She denies runny nose and nasal congestion. She has had some chills, felt feverish, and has been fatigued. She has RSV about a month ago. She has been exposed to Covid. Social History Description Last Updated Tobacco non-user 09/24/2023 Last Documented On 4 12:15PM ; [facility] Smoking Status Unknown Procedures and Surgical History Includes: Procedures from this encounter Procedures Code Diagnosis Performing Provider Service L ocation Service Date intervention and counseling on cessation of tobacco use 4000F Last Documented On 4 8:59AM ; [facility] use of tobacco assessment performed 1000F Last Documented On 4 8:59AM ; [facility] review of medications documented 1160F Last Documented On 4 8:59AM ; [facility] Patient verbalizes understanding Last Documented On 4 12:08PM ; [facility] Increase fluids Last Documented On 4 12:08PM ; [facility] Clinical summary provided to patient Last Documented On 4 12:08PM ; [facility] Medical History Includes: Medical History addressed during this encounter Description Last Updated Not taking OTC medications 09/24/2023 Last Documented On 4 12:15PM ; [facility] Family History Includes: Family History addressed during this encounter No Family History Recorded Review of Systems Includes: Review of Systems from this encounter Systemic: No fever. Chills. Head: Headache. No facial pain and no sinus pain. Otolaryngeal: No hearing loss, no earache, no tinnitus, no nasal discharge, no nasal passage blockage (stuffiness), and no hoarseness. Sore throat. Pulmonary: No dyspnea. Cough. No wheezing. Gastrointestinal: Normal appetite, no nausea, no vomiting, and no diarrhea. Musculoskeletal: No muscle aches. Skin: No rash. Mental Status Includes: Mental Status from this [...] Active Last Documented On 4 7:16PM ; [facility] Penicillins Allergy Skin Rashes / Er uption of skin, Shortness of Breath / Dyspnea, keflex is ok 06/09/2013 Active Last Documented On 4 7:16PM ; [facility] Macrobid Allergy Skin Rashes / Eruption of skin, Nausea 0 03/07/2015 Active Last Documented On 4 7:16PM ; [facility] Doxycycline Hyclate Allergy Skin Rashes / Eruption of skin, Hives / Urticaria 07/08/2013 Active Last Documented On 4 7:16PM ; [facility] Amoxicillin Allergy Skin Rashes / Er uption of skin, Shortness of Breath / Dyspnea, does have epi pen 03/07/2015 Acti ve Last Documented On 4 7:16PM ; [facility] Encounters Encounter Provider Location Date Check-In Time Check-Out Time Diagnosis COVID SICK VISIT- ESTABLISHED PATIENT EZE VICKERS APRN [facility] 09/24/19 24 8:49AM 9:46AM Upper Respiratory Infection Acute Insurance Includes: Active Insurance Policies Plan Name Member ID Group # Subscriber Relationship Effect krishna Dates 1 - [facility] [id number] GARRY SPANGLER horace 2 - MEDICAID [facility] [id number] JESSICA SPANGLER Self Clinical Notes Includes: Clinical Notes from this encounter * Progress note Date Encounter Last Documented by 09/24/2023 COVID SICK VISIT- ESTABLISHED PA SAMUELNT Last documented on 09/24/2023; 12:15 PM, EZE VICKERS APRN; [facility] Chief Complaint The Chief Complaint is: Cough, headache, sore throat. History of Present Illness JESSICA SPANGLER is a 27 year old female. - Allergy list reviewed - Problem list reviewed - Medication list reviewed - Not feeling fine - Chills - Duration of symptoms one day - No fever - Headache - No sinus pain - No swollen glands on the right side of the neck - Not on the left side - No itching of the eyes - No discharge from the eyes - Sore throat - No earache - The ears do not feel full - No nasal discharge - No postnasal drip - No nasal passage blockage (stuffiness) - No sneezing - No hoarseness - No itchy throat - No bad breath - No chest pain or discomfort - No palpitations - No pounding heartbeat - Cough - Not feeling congested in the chest - No dyspnea - No wheezing - No nausea - No vomiting - No diarrhea - No myalgia Pt presents with complaints of a cough, headache, and sore throat. She denies runny nose and nasal congestion. She has had some chills, felt feverish, and has been fatigued. She has RSV about a month ago. She has been exposed to Covid. Past Medical/Surgical History Reported: Medications: Not taking OTC medications. Social History Tobacco use: Tobacco non-user. Review Of Systems Systemic: No fever. Chills. Head: Headache. No facial pain and no sinus pain. Otolaryngeal: No hearing loss, no earache, no tinnitus, no nasal discharge, no nasal passage blockage (stuffiness), and no hoarseness. Sore throat. Pulmonary: No dyspnea. Cough. No wheezing. Gastrointestinal: Normal appetite, no nausea, no vomiting, and no diarrhea. Musculoskeletal: No muscle aches. Skin: No rash. Physical Findings - Vitals taken 09/24/2023 08:58 am Pulse Rate-Sitting 85 bpm Temp-Oral 98.1 F Height 62 in Weight 263 lbs Body Mass Index 48.1 kg/m2 Body Surface Area 2.1 m2 Oxygen Saturation 97 % General Appearance: - Alert. - Well developed. - Well nourished. - In no acute distress. Eyes: General/bilateral: Pupils: - PERRLA. Ears: General/bilateral: External Auditory Canal: - External auditory meatus normal. Right Ear: Tympanic Membrane: - Not erythematous. - No perforation. - No pus behind tympanic membrane. - No serous exudate behind tympanic membrane. Left Ear: Tympanic Membrane: - Not erythematous. - No perforation. - No pus behind tympanic membrane. - No serous exudate behind tympanic membrane. Nose: General/bilateral: Discharge: - No nasal discharge. Cavity: - Nasal turbinate not swollen. Sinus Tenderness: - No sinus tenderness. Pharynx: Oropharynx: - Soft palate was normal. - Tonsils were not erythematous on the right. - Tonsils were not erythematous on the left. - Right tonsil was not enlarged. - Left tonsil was not enlarged. - No exudate on right tonsil. - No exudate on left tonsil. - Not inflamed. Mucosal: - Pharynx showed no accumulation of mucous. Lymph Nodes: - Anterior cervical lymph nodes were not enlarged. - Posterior cervical lymph nodes were not enlarged. - Submental lymph nodes were not enlarged. - Preauricular lymph nodes were not enlarged. - Postauricular lymph nodes were not enlarged. - Suboccipital lymph nodes were not enlarged. Lungs: - Clear to auscultation. - No decrease in breath sounds was heard. Cardiovascular: Heart Rate And Rhythm: - Normal. Murmurs: - No murmurs were heard. Neurological: - Oriented to time, place, and person. Skin: - General appearance was normal. Tests - Test: Group A strep Report Date: 09/24/2023 Rapid Strep neg Normal LOT # AND EXP. DATE [id number] 05/25/26 Normal INT. QC ACCEPTABLE? yes Normal Assessment - [J06.9 - Acute upper respiratory infection, unspecified] Acute upper respiratory infection Therapy - Increase fluids. - Intervention and counseling on cessation of tobacco use. - Patient verbalizes understanding. - Clinical summary provided to patient. Counseling/Education - Instructions for patient Discussed Increase fluid intake Rest as much as possible Encourage use of humidifier- Regularly clean the humidifier so that bacteria does not grow Saltwater gargles Encouraged vitamin C and Zinc Cool liquids to soothe the throat Acetaminophen or ibuprofen as needed for pain/fever Antihistamine as needed- such as zyrtec, claratin, or benadryl Saline Nasal spray as needed Plan StartCited - Acute upper respiratory infection, unspecified In office procedures/*Clia Waived Labs: SARS COVID-19 + flu A & B test EndCited - Return to the clinic if condition worsens or new symptoms arise - Patient will call for appointment as needed Practice Management Use of tobacco assessment performed Review of medications documented.
--- OUTSIDE RECORDS SUMMARY | 2025-05-30 01:01 | XMS_ITS | Data Portability ---
Author Organization [facility] Address [address] [place] [place] [address] Care Team Providers Care Principal Network Engineer Name Role Phone MERRY CABELLO Primary Care Provider [phone] Assessment Encounter Date Assessment Date Assessment LastModified by Organization Details LastModified Time 05/20/2025 05/20/2025 Greater than 30 minutes was spent in total between reviewing records, discussion with the patient, examination, and coordination of care. [email or web address] Not available 05/20/2025 17:04:32 Plan of Treatment Reminders Order Date Submit Date Provider Last Modified By Organization Details Last Modified Time Details Appointments SURG Lap Ovarian Cystect den 2024 12:00P M REDD WAITE MD Not available Not available Not available SURG POST OP 2024 03:15P M REDD WAITE MD Not available Not available Not available U/S VESSEL ENGINEER COMPLET E 2024 03:30P M ULTRASOUND Not available Not available Not available WELL WOMAN-E ST 2024 04:15P M FRANCIS Samaniego Not available Not available Not available U/S F/U 2024 03:30P M Ling NO MD Not available Not available Not available Lab None recorde d. Referral None recorde d. Procedures None recorde d. Surgeries None recorde d. Imaging US, transva ginal 2024/16/ 025 [email or web address] [facility], [address], [place], [address], 05/11/2025 09:46:56 Medication Orders None recorde d. Patient TargetsNo targets recorded. Patient InstructionsNo instructions recorded. Reason for Referral None Reported. Results Created Date Observation Date Name Description Value Unit Range Abnormal Flag Note LastModifiedBy Organization Detail LastModifiedTime 12/09/19 25 12/08/2024 US, trans vagin al No observ ation record ed. [email or web address] [facility] [address], [place], [address], 12/08/2024 15:22:37 12/09/19 25 12/08/2024 US, trans vagin al No observ ation record ed. [email or web address] [facility] [address], [place], [address], 12/09/2024 09:34:48 05/10/2005/11/2025 US, trans vagin al No observ ation record ed. [email or web address] [facility] [address], [place], [address], 05/11/2025 13:42:52 05/10/20 25 05/10/2025 US, trans vagin al No observ ation record ed. [email or web address] [facility] [address], [place], [address], 05/11/2025 15:13:24 Result Notes None recorded. Problems Name Problem SNOMED Code Status Onset Date Resolution Date Notes Provider Name and Address Organization Details Recorded Time Headache 01979793 Completed chronic Steve ramírez, [facility] 3 15:54:14 Pre-ecla mpsia 943582319 Completed post , started LD ASA Steve ramírez, [facility] 3 15:54:14 Nonreass uring status 750321999 Completed History. Delivere d at 39 - inductio n. Steve ramírez, [facility] 3 15:54:14 Gestatio nal diabetes mellitus 94047533 Completed 01/21 - u NPH @ HS. h/o GDMa2. Antenata l testing Steve ramírez, [facility] 3 15:54:14 Cystic fibrosis 957344935 Completed Carrier - FOB - neg. Steve ramírez, [facility] 3 15:54:14 Obesity 637470024 Completed Class 3 - nsts at 34 wks. Steve ramírez, [facility] 3 15:54:13 Vitamin D deficien cy 43959935 Completed November - June range - Rpt Steve ramírez, [facility] 3 15:54:13 Disorder of placenta 675859315 [facility], [facility] 3 15:54:14 Obesity 887428976 Active Class 3 - nsts at 34 wks. Steve ramírez, [facility] 3 15:54:13 Vitamin D deficien cy 47128442 Active November - June range - Rpt Steve ramírez, [facility] 3 15:54:13 Shoulder dystocia - delivere d 602817703 Completed 12/24/22- hx shoulder dystocia with brachial plexus injury SECTION Steve ramírez, [facility] 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 2 10:47:07 Pregnanc y 91707507 Completed 202102/07/2023 Steve ramírez, [facility] 3 15:54:22 SARS-CoV -2 Completed 2021 ASA & serial growth Steve Chaudhry [facility], [facility] 3 15:54:13 Past pregnanc y history of gestatio nal diabetes mellitus 490801911 Active 2022 Kathy ramírez, [facility] 3 10:32:18 Mixed anxiety and depressi ve disorder 782270521 Active 2023 Kathy Wolfe [facility], [facility] 4 11:46:08 Diabetes mellitus due to structur ally abnormal insulin 66427536 Active 2023 Kathy Wolfe [facility], [facility] 4 11:46:25 Problem Notes None recorded. Procedures Surgical History Date Name Laterality Status Provider Name and Address Organization Details Recorded Time 025 LAPAROSCOPIC OVARIAN CYSTECTOMY (SURG) completed Kathy Wolfe [facility] 12/22/2024 08:48:33 024 Date of Last Pap Smear completed Lucille Prajapati [facility] 09/15/2024 17:06:34 024 [facility] 06/12/2024 11:47:59 024 procedure on elbow completed Kathyyadi Wolfe [facility] 06/12/2024 11:48:13 023 Control Implant Insertion completed Mireya Kirby MD [address], [place], [address], [facility] 03/07/2023 10:35:41 023 SECTION (SURG) completed Sheridan Tenorio [facility] 01/28/2023 10:30:38 01/25/2 023 I&D completed Mireya Kirby MD [address], [place], [address], [place] [facility] 09/20/2022 10:54:03 021 Cholecystectomy completed Maude [facility] 12/20/2021 12:09:13 005 procedure on eye completed [facility] 12/20/2021 12:09:28 Imaging Results None recorded. Procedure Notes None recorded. Medical Equipment None Reported. Allergies Allergen ID Allergen Name Allergen Category Reaction Reaction Severity Criticality Documentation Date Start Date Code Code System Note Provider Name and Address Organization Details Recorded Time amoxicill in medicatio n Not available Not available Not available 12/20/2021 723 RxNorm Maude Phelps [facility] 2 11:52:53 03796 Product containin g penicilli n (product) medicatio n Not available Not available Not available 12/20/2021 47005 8001 SNOMED Maude Phelps [facility] 2 11:53:06 89321 Macrobid medicatio n Not available Not available Not available 12/20/2021 19191 1 RxNorm Maude Phelps [facility] 2 11:53:14 78910 doxycycli ne Not available Not available Not available Not available 12/20/2021 3640 RxNorm Maude Phelps [facility] 2 11:53:25 91408 acetamino phen / hydrocodo ne medicatio n Not available Not available Not available 06/04/2022 46153 2 RxNorm Maude Phelps [facility] 2 10:27:39 52628 phentermi ne medicatio n other Not available Not available 10/30/2024 8152 RxNorm Kathyyadi Wolfe [facility] 11:20:20 Medications Name Sig Start Date Stop Date Status Note LastModified by Organization Details LastModified Time binaxnow cov kit home alla 07/16 completed Not Available Not Available Not Available cyclobenzap rine 10 mg tablet 06/12 completed Not Available [...] 1 TABLET BY MOUTH TWICE DAILY FOR 7 DAYS 05/09 completed Not Available Not Available Not Available [...] 1 TABLET BY MOUTH EVERY 6 HOURS 05/09 completed Not Available Not Available Not Available [...] D THEN 2 TIME A WEEK FOR MAINMERLY CE 06/12 completed Not Available Not Available [...] completed Not Available Not Available Not Available mupirocin 2 % topical ointment APPLY TOPICALLY TO THE AFFECTED AREA THREE TIMES DAILY FOR 10 DAYS active Not Available Not Available No t Available ergocalcife rol (vitamin D2) 1,250 mcg [...] Available TRUEplus Pen Needle 32 gauge x 32 TO USE WITH INSULIN 03/03 completed Not Available Not Available Not Available Ozempic 0.25 mg or 0.5 mg (2 mg/1.5 mL) subcutaneou s pen injector Inject 0.25 mg every week by subcutane ous route. 10/11 /2022 completed Not Available Not Available Not Available Alive 10/17 completed Not Available Not Available Not Available OneTouch Ultra2 Meter USE TO TEST BLOOD SUGAR FOUR TIMES DAILY 03/03 completed Not Available Not Available Not Available Ozempic 1 mg/dose (4 mg/3 mL) subcutaneou s pen injector Inject 1 mg every week by subcutane ous route. 06/04 completed Not Available Not Available Not Available BinaxNOW COVID-19 Ag Self Test kit TEST DIRECTED TODAY 09/01 completed Not Available Not Available Not Available Mounjaro 7.5 mg/0.5 mL subcutaneou s pen injector ADMINISTE R 7.5 MG UNDER THE SKIN EVERY 7 DAYS active Not Available Not Available No t Available Mounjaro 5 mg/0.5 mL subcutaneou s pen injector ADMINISTE R 5 MG UNDER THE SKIN EVERY 7 DAYS 05/09 completed Not Available Not Available Not Available Mounjaro 2.5 mg/0.5 mL subcutaneou s [...] Not Available Vitals Date Recorded Body height Body mass index (BMI) Body weight Systolic And Diastolic Provider Name and Address Organization Details Last Updated DateTime 12/30/2024 157.48 cm 45.2 kg/m2 075751.32 g 126/84 mm[Hg] [facility] 12/30/2024 09:37:57 Date Recorded Body height Body mass index (BMI) Body weight Systolic And Diastolic Provider Name and Address Organization Details Last Updated DateTime 05/09/2025 157.48 cm 42.6 kg/m2 448978.02 g 126/80 mm[Hg] [facility] 05/09/2025 17:14:06 Date Recorded Body height Body mass index (BMI) Body weight Systolic And Diastolic Provider Name and Address Organization Details Last Updated DateTime 05/16/2025 157.48 cm 42.3 kg/m2 088666.27 g 136/84 mm[Hg] Abigail Sandoval [facility] 05/16/2025 17:28:59 Date Recorded Body height Body mass index (BMI) Body weight Systolic And Diastolic Provider Name and Address Organization Details Last Updated DateTime 05/20/2025 157.48 cm 42.3 kg/m2 611091.84 g 137/85 mm[Hg] Tracey Merinoulysses [facility] 05/20/2025 16:01:47 Social History Question Answer Notes LastModified by Organizat ion Details LastModified Time Tobacco Smoking Status Never Smoker Kathy ramírez, [facility] 06/09/2023 10:31:37 Do You Have An Advance Directive? No Information n ot available 01/04/2022 If You Are , What Was Your Level Of Alcohol Consumption Prior To ? Occasional [email or web address] Information not available 06/09/2023 Are You Blind Or Do You Have Difficulty Seeing? No Information n ot available 01/04/2022 What Is Your Level Of Caffeine Consumption? Occasional [email or web address] Information not available 06/12/2024 How Much Tobacco Do You Chew? None Information not available 01/04/2022 In The 14 Days Before Symptom Onset, Have You Had Close Contact With A Laboratory-confirm ed COVID-19 While That Case Was Ill? No Information n ot available 01/04/2022 In The 14 Days Before [...] Type Of Diet Are You Following? CARBOHYDRATE [email or web address] Information n ot available 06/12/2024 What Is The Highest Grade Or Level Of School You Have Completed Or The Highest Degree You Have Received? [id number] Information not available 01/04/2022 Are There Any Guns Present In Your Home? No Information not available 01/04/2022 Do You Use Protection During Sex? Always Information not available 06/09/2023 Do You Use [...] IV Drugs? No Information not available 01/04/2022 Do You Have Difficulty Walking Or Climbing Stairs? No [email or web address] Information not available 06/09/2023 Sex: Unknown Functional Status Question Answer Note LastModified by Organizat ion Details LastModified Time Do you use any illicit or recreational drugs? No Information not available 01/04/2022 What is your level of alcohol consumption? None [email or web address] Information not available 08/29/2022 Are you able to walk independently without assistance or assistive devices? [email or web address] Information not available 01/04/2022 Are you able to care for yourself independently? Yes [email or web address] Information not available 06/09/2023 What is your occupation? [email or web address] Information not available 01/04/2022 Do you have difficulty dressing, bathing, grooming, or toileting? No [email or web address] Information not available 06/09/2023 What is your exercise level? None [email or web address] Information not available 06/12/2024 Mental Status Question Answer Note LastModified by Organization D etails LastModified Time Do you feel stressed (tense, restless, nervous, or anxious, or unable to sleep at night)? [id number] [email or web address] Information not available 06/09/2023 Family History Relationship Description Onset Age of this Age Resolved Age Notes LastModified by Organization Details LastModified Time Maternal Grandmother Malignant neoplasm of breast Not available 2021 18:42:47 Maternal Grandmother Diabetes mellitus Not available 2021 18:43:21 Father Malignant neoplasm of colon Not available 2021 18:43:00 Father Diabetes mellitus Not available 2021 18:43:21 Maternal Grandfather Diabetes mellitus Not available 2021 18:43:21 Medical History Condition Response Allergies (Food, seasonal, environmental ) Y Other N Blood Transfusion N Drug/Latex Allergies/Reactions Y Breast Cancer N Dermatologic Disorders Y Lung Disease N [...] History Statement/Question Response Date of Last Mammogram Flow Heavy Date of LMP 12/22/2024 N Was last menstrual period normal Y STIs/STDs N Date of control 03/14/2023 Date of Last Colonoscopy Desired Control Method Implant On BCP's at Conception? Y HPV Vaccine Y Duration of Flow (days) 5 Current Control Method Implant Age at First Child 25 Frequency of Cycle (Q days) 24 Sexually Active? Y Menses Monthly N Date of DEXA bone scan Age of first menstrual cycle 17 Date of Last Pap Smear 06/14/2024 Sexual Problems? N LMP Definite N Obstetrics History GPAL:G 3 P 2 0 1 2 Type Value Full Term 2 Spontaneous 1 Living 2 Total 3 Past Encounters Encounter ID Performer Location Encounter Start Date Encounter Closed Date Diagnosis/Indication Diagnosis SNOMED-CT Code Diagnosis ICD10 Code Diagnosis IMO Codes Diagnosis Note [id number] Nelson No MD [facility] [address],[facility] [place] [address] 12/20/2021 11:48:43 12/20/2021 13:10:55 Visual disturbance 76147157 H53.9 Headache 74381508 R51.9 Abnormal u terine bleeding 5634431186 9100 N93.9 This patient is 26-year-ol d [...] 3 complex problems. Contracept ion care management 282693534 Z30.9 [id number] Nelson No MD [facility] [address] [address] 01/04/2022 15:39:40 01/07/2022 14:41:26 Contraception care management 199551014 Z30.9 Hyperlipidemia 11152000 E78.5 Syndrome o f carbohydrate intolerance 69326552 K90.49 this patient is a 26-year-ol d [...] minutes face-to-fa ce discussing Two complex issues. [id number] Nelson No MD [facility] [address],[place] [address] 02/02/2022 11:18:19 02/04/2022 14:45:27 Obesity 471691188 E66.9 this patient is a 26-year-ol d [...] was given precaution s about phentermin e. [id number] Nelson No MD [facility] [address],[place] [address] 02/12/2022 09:31:50 02/13/2022 13:10:07 [id number] Nelson No MD [facility] [address] [place] [address] 02/19/2022 16:58:00 02/19/2022 17:52:10 Obesity 242644725 E66.9 this patient is a 26-year-ol d [...] some of her medication s to the [employer] website. We agreed to continue to see [...] trying to get GLP 1 agonist covered. [id number] Nelson No MD [facility] [address],[place] [address] 03/12/2022 15:28:36 03/12/2022 17:08:02 Obesity 556913837 E66.9 This patient is a 26-year-ol d [...] She will follow up in 4 weeks. [id number] MD William Beck [address],[place] [address] 04/20/2022 10:12:48 04/22/2022 14:57:35 Obesity 779174713 E66.9 this patient is a 26-year-ol d [...] reviewed exercise. We talked about energy consumptio eliezer dahl. She is working with the dietitian. [id number] Nelson No MD [facility] [address],[place] [address] 06/04/2022 09:24:02 06/04/2022 10:25:52 screening 700763262 Z36.87 [id number] Nelson No MD [place] [address],[place] [address] 06/04/2022 09:26:41 06/04/2022 10:59:33 Carrier of cystic fibrosis gene mutation 216932224 Z14.1 Patent fredi tus arteriosus 52330806 Q25.0 Amenorrhea 86781247 N91. 2 this patient is a 26-year-ol [...] counseling . Discussed early care in detail [id number] MD William Beck [address],[place] [address] 06/18/2022 09:17:07 06/18/2022 10:27:53 Uncertain viability of 966335301 O36.80X0 Z3A.01 [id number] Nelson No MD [facility] [address],[place] [address] 07/16/2022 09:22:03 07/16/2022 14:18:14 screening 923749188 Z36.82 [id number] Nelson No MD [facility] [address],[place] [address] 07/16/2022 09:22:31 07/17/2022 16:38:29 Routine care 972346043 Z34.91 Vaginitis 61345484 N76.0 [id number] Nelson No MD [facility] [address],[place] [address] 08/15/2022 09:30:34 08/15/2022 10:23:47 Vulvovaginitis 59241138 N76.0 Headache 34560491 R51.9 [id number] [facility] [address],[place] [address] 08/29/2022 09:41:07 08/29/2022 10:46:27 Dysuria 90842952 R30.0 Urinary tr act infectious disease 86802702 N39.0 Increase water and avoid caffeine. Pt states she has taken keflex in the past without any allergic reaction. We did discuss risks and precaution s to take. If any s/s of allergic reaction she will take benadryl and present to ER. Vaginitis 40593892 N76.0 Discussed use of mild soap like dove or ivory, cotton underwear w/out dye, hypoallerg enic detergent, wipe from front to back, avoid tub baths, keep perineum clean and dry, d/c use of baby wipes. Encouraged daily intake of yogurt or womens health probiotic. Internal and external affirm collected along with STD screen. [id number] Nelson No MD [facility] [address],[place] [address] 09/10/2022 15:19:13 09/10/2022 16:45:09 screening for malformation 117734727 Z36.3 [id number] [facility] [address],[place] [address] 09/10/2022 15:20:06 09/11/2022 17:43:11 Acute abscess of skin and/or subcutaneous tissue 734135013 L02.91 Urinary symptoms 4698410 08 R39.9 Vaginitis 37727834 N76.0 [id number] Dorothea Allen CNM [facility] [address],[place] [address] 09/12/2022 16:56:45 09/13/2022 14:33:42 Acute abscess of skin and/or subcutaneous tissue 845642916 L02.91 [id number] Mireya Kirby MD [facility] [address],[place] [address] 09/18/2022 15:18:42 09/20/2022 14:46:02 Abscess of left thigh 7917979544 8481846 L02.416 [id number] Nelson No MD [facility] [address],[place] [address] 10/08/2022 10:58:21 10/08/2022 13:57:54 AND/OR placental disorder affecting management of mother 62998997 O36.92X0 U07.1 Z3A.23 [id number] Dorothea Allen CNM [facility] [address],[place] [address] 10/08/2022 10:58:40 10/09/2022 12:18:53 Routine care 315913527 Z34.92 [id number] Dorothea Allen CNM [facility] [address],[place] [address] 10/17/2022 09:35:57 10/17/2022 10:23:59 Routine care 142580390 Z34.92 [id number] Nelson No MD [facility] [address],[place] [address] 11/04/2022 11:48:30 11/04/2022 12:42:45 Excessive growth affecting management of mother 21125000 O36.62X0 Z3A.27 [id number] Dorothea Allen CNM [facility] [address] [address] 11/04/2022 11:48:46 11/04/2022 18:40:11 Routine care 332604765 Z34.92 [id number] Dorothea Allen [facility] [address],[place] [address] 11/21/2022 09:52:05 11/22/2022 10:13:46 Routine care 717047250 Z34.92 [id number] Nelson No MD [facility] [address],[place] [address] 12/03/2022 09:35:50 12/03/2022 11:11:29 Gestational diabetes mellitus class A2 54048814 O24.414 O43.90 O99.213 Z86.16 Z3A.31 [id number] [facility] [address],[place] [address] 12/03/2022 09:37:05 12/04/2022 10:23:58 Routine care 478987965 Z34.92 [id number] Nelson No MD [facility] [address],[place] [address] 12/10/2022 09:32:45 12/10/2022 10:58:55 Gestational diabetes mellitus 14782130 O24.419 [id number] Nelson No MD [facility] [address],[place] [address] 12/10/2022 09:32:59 12/10/2022 10:21:09 Gestational diabetes mellitus class A1 97922158 O24.410 Z3A.32 [id number] [facility] [address],[place] [address] 12/10/2022 09:33:14 12/11/2022 17:30:11 Routine care 270913118 Z34.92 [id number] Nelson No MD [facility] [address],[place] [address] 12/13/2022 09:29:21 12/13/2022 10:29:46 Gestational diabetes mellitus 97334856 O24.419 [id number] Mireya Kirby MD [facility] [address],[place] [address] 12/17/2022 09:37:09 12/17/2022 10:35:34 Gestational diabetes mellitus 80137844 O24.414 O99.213 Z3A.33 [id number] Mireya Kirby MD [facility] [address],[place] [address] 12/17/2022 09:37:34 12/17/2022 11:08:59 Gestational diabetes mellitus 35176149 O24.414 O99.213 Z3A.33 [id number] Mireya Kirby MD [facility] [address],[place] [address] 12/17/2022 09:37:50 12/17/2022 11:08:48 Routine care 495998129 Z34.83 Gestationa l diabetes mellitus 59420758 O24.414 O99.213 Z3A.33 [id number] Nelson No MD [facility] [address],[place] [address] 12/20/2022 09:36:37 12/20/2022 10:11:40 Gestational diabetes mellitus 48212941 O24.414 O99.213 Z3A.33 [id number] Nelson No MD [facility] [address],[place] [address] 12/24/2022 09:39:52 12/24/2022 10:48:34 Gestational diabetes mellitus 12067122 O24.414 O99.213 Z3A.33 [id number] Mireya Kirby MD [facility] [address],[place] [address] 12/24/2022 09:40:52 12/24/2022 10:14:45 Gestational diabetes mellitus 74835516 O24.414 Z3A.34 [id number] [facility] [address],[place] [address] 12/24/2022 09:41:16 12/24/2022 11:51:30 Routine care 634322011 Z34.92 [id number] Mireya Kirby MD [facility] [address],[place] [address] 12/27/2022 09:36:58 12/27/2022 12:17:15 Gestational diabetes mellitus 55442431 O24.414 Z3A.34 [id number] Mireya Kirby MD [facility] [address],[place] [address] 12/31/2022 09:38:37 12/31/2022 11:52:00 Gestational diabetes mellitus 97585357 O24.414 O99.213 Z3A.35 [id number] Nelson No MD [facility] [address],[place] [address] 12/31/2022 09:39:14 12/31/2022 11:38:25 Gestational diabetes mellitus 88253288 O24.419 [id number] Mireya Kirby MD [facility] [address],[place] [address] 01/03/2023 09:33:55 01/03/2023 10:27:09 Gestational diabetes mellitus class A2 42017719 O24.414 [id number] Mireya Kirby MD [facility] [address] [address] 01/03/2023 09:34:17 01/03/2023 11:42:38 Gestational diabetes mellitus 99580211 O24.414 O99.213 Z3A.35 Shoulder d ystocia with problem 545171704 O66.0 [id number] MD William Alberto [address],[place] [address] 01/07/2023 11:25:00 01/07/2023 12:36:54 Gestational diabetes mellitus class A2 15616263 O24.414 O99.213 Z3A.36 [id number] MD William Alberto [address],[place] [address] 01/07/2023 11:27:35 01/07/2023 13:54:43 Gestational diabetes mellitus 97664782 O24.414 O99.213 Z3A.35 [id number] MD William Alberto [address],[place] [address] 01/10/2023 09:29:34 01/10/2023 10:13:51 Gestational diabetes mellitus 51358316 O24.414 O99.213 Z3A.35 [id number] MD William Alberto [address],[place] [address] 01/10/2023 09:29:57 01/15/2023 14:52:39 Gestational diabetes mellitus class A2 18605060 O24.414 O99.213 Z3A.37 [id number] MD William Alberto [address],[place] [address] 01/14/2023 09:39:24 01/14/2023 11:01:48 Gestational diabetes mellitus class A2 53895194 O24.414 O99.213 Z3A.37 [id number] MD William Alberto [address],[place] [address] 01/14/2023 09:39:40 01/14/2023 10:59:47 Gestational diabetes mellitus 25838886 O24.414 O99.213 Z3A.35 [id number] MD William Alberto [address],[place] [address] 01/14/2023 09:39:52 01/14/2023 15:23:40 Gestational diabetes mellitus class A2 40266336 O24.414 O99.213 Z3A.37 [id number] MD William Alberto [address],[place] [address] 01/17/2023 09:24:00 01/17/2023 12:36:47 Gestational diabetes mellitus [id number] O24.414 O99.213 Z3A.35 [id number] MD William Alberto [address],[place] [address] 01/21/2023 09:19:51 01/21/2023 10:36:45 Gestational diabetes mellitus 12614853 O24.414 O99.213 Z86.16 Z3A.38 [id number] MD William Alberto [address],[place] [address] 01/21/2023 09:20:08 01/21/2023 10:31:38 Gestational diabetes mellitus 37854126 O24.414 O99.213 Z86.16 Z3A.38 [id number] MD William Alberto [address],[place] [address] 01/24/2023 09:33:07 01/24/2023 10:12:01 Gestational diabetes mellitus class A2 25241443 O24.414 O99.213 Z3A.37 [id number] Mireya Kirby MD [facility] [address],[place] [address] 01/24/2023 09:33:27 01/24/2023 10:35:40 Gestational diabetes mellitus 97629576 O24.414 O99.213 Z86.16 Z3A.38 Shoulder d ystocia with problem 079597112 O66.0 [id number] MD William Alberto [address],[place] [address] 01/28/2023 10:10:23 01/28/2023 10:17:37 [id number] MD William Alberto [address],[place] [address] 02/03/2023 11:10:16 02/03/2023 11:47:22 Postoperative visit 595382997 Z09 Candidal intertrigo 2661 05682 B37.2 [id number] MD William Alberto [address],[place] [address] 03/03/2023 11:31:02 03/05/2023 14:53:40 care 561834692 Z39.2 [id number] MD William Alberto [address],[place] [address] 03/07/2023 09:58:00 03/07/2023 10:36:44 Contraception care management 329957528 Z30.9 Implantati on of subcutaneous contraceptive 877264920 Z30.9 [id number] Mireya Kirby MD [facility] [address],[place] [address] 03/18/2023 10:13:42 03/18/2023 10:35:25 Pre-eclampsia 056702480 O14.20 [id number] Mireya Kirby MD [facility] [address],[place] [address] 04/01/2023 12:26:47 04/01/2023 13:15:31 Dysuria 49292516 R30.0 Candidal vulvovaginitis 89308068 B37.31 Liver enzy mes level above reference range 705165028 R74.01 [id number] Mireya Kirby MD [facility] [address],[place] [address] 04/18/2023 12:29:18 04/18/2023 13:41:37 Abdominal mass 027431911 R19.00 Past pregn cande history of section 027449476 Z98.890 Pain on ab dominal wall movement 138291463 R10.9 [id number] FRANCIS Samaniego [facility] [address],[place] [address] 06/09/2023 10:09:43 06/09/2023 11:53:35 Gynecologic examination 73770435 Z01.419 [facility] - nexplanon, inserted 03/07/2023 iscussed common to [...] 10 years you should obtain one as well.Discu ssed with patient & provided with informatio [...] of today's plan if desired. Irregular periods 293447 07 N92.6 Contracept ion care management 364755435 Z30.9 Vaginitis 63389189 N76.0 [id number] Nelson No MD [facility] [address],[place] [address] 07/28/2023 16:57:15 07/29/2023 09:04:46 Contraception care management 597953078 Z30.9 27-year-ol d female who has concern about her Nexplanon. She is concerned about it breaking. Nexplanon was palpated. It arcs and bends normally. It is flexible. It is placed normally. Patient was given reassuranc e. She will follow-up as needed. [id number] Nelson No MD [facility] [address],[place] [address] 06/12/2024 11:29:05 06/12/2024 11:57:33 Gynecologic examination 38352020 Z01.419 Annual gynecologi miguel exam performed. Patient [...] Pap smear- done laboratory evaluation - done [id number] Nelson No MD [facility] [address],[facility] [place] [address] 09/01/2024 17:08:53 09/01/2024 18:00:31 Irregular periods 69049338 N92.6 Discussed that irregular cycles can sometimes occur with Nexplanon. Recommende d that patient call office if prolonged bleeding continues as estradiol 2 mg PO daily x 14 days can be prescribed to help stop the bleeding.T VUS ordered to evaluate for endometria l hyperplasi a/abnormal ities contributi ng to prolonged bleeding. Pain in pelvis 26258011 R10.2 TVUS ordered to evaluate for causes of right-side d pelvic pain. Notable right-side d tenderness upon bimanual exam.F/U with MD pending results.Re quested CT scan from [facility]. [id number] Nelson No MD [facility] [address],[place] [address] 09/08/2024 17:33:10 09/08/2024 18:13:14 Irregular periods 89257763 N92.6 R10.2 [id number] Nelson No MD [facility] [address],[place] [address] 09/15/2024 16:46:48 09/16/2024 06:49:00 Abnormal uterine bleeding 0532800693 9100 N93.9 this patient is a 28-year-ol [...] 20 minutes on her care in total. [id number] Nelson No MD [facility] [address],[facility] [place] [address] 10/27/2024 13:59:15 10/27/2024 14:36:14 Cyst of left ovary 5336715666 5249494 N83.202 R10.2 N93.9 [id number] Nelson No MD [facility] [address],[place] [address] 10/30/2024 10:44:39 11/01/2024 10:41:19 Pain in pelvis 58378731 R10.2 Cyst of ovary 66539156 N 83.209 This patient is a 29-year-ol [...] 20 minutes on her care in total. [id number] Nelson No MD [facility] [address],[place] [address] 12/08/2024 14:20:08 12/08/2024 14:56:08 Cyst of left ovary 7833297024 0274492 N83.202 R10.2 N93.9 [id number] Nelson No MD [facility] [address],[place] [address] 12/15/2024 16:02:17 12/15/2024 16:52:49 Cyst of left ovary 7566675507 [id number] N83.202 [id number] patient is a 29-year-ol d who female [...] there is risk of hemorrhage and infection. [id number] Nelson No MD [facility] [address],[place] [address] 12/21/2024 08:47:04 12/21/2024 10:57:03 [id number] Nelson No MD [facility] [address],[place] [address] 12/30/2024 09:23:04 12/30/2024 09:59:25 Postoperative visit 881900987 Z48Bronson89 [id number] Is a 29-year-ol d female presents for postop follow-up. She had a laparoscop ic ovarian cystectomy . 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 There was probably residual tumor present. We agreed to periodical ly repeat ultrasound . Incisions are clean dry and intact. We discussed PCOS her subdermal contracept krishna implant. [id number] Nelson No MD [facility] [address],[place] [address] 05/09/2025 16:59:14 05/09/2025 17:53:27 Pain in female genitalia on intercourse 61216441 N94.10 [id number] Abnormal u terine bleeding 4842595928 9100 N93.9 [id number] this patient is a 29-year-ol d female presents for abnormal uterine bleeding and pelvic pain. She is irregularl y irregular bleeding. She has pain with intercours e. She has pain at the introitus and pain with deep insertion. We agreed to evaluation . We will obtain pelvic ultrasound . She is using a subdermal contracept krishna implant. We talked about removal of the implant. We talked about oral contracept krishna pills to control bleeding and prevent cyst formation. She has a history of recurrent cysts. She is tender on exam. [id number] Nelson No MD [facility] [address],[place] [address] 05/10/2025 17:16:33 05/10/2025 17:41:54 Abnormal uterine bleeding 5888579696 9100 N93.9 [id number] this patient is a 29-year-ol d female presents for abnormal uterine bleeding and pelvic pain. She is irregularl y irregular bleeding. She has pain with intercours e. She has pain at the introitus and pain with deep insertion. We agreed to evaluation . We will obtain pelvic ultrasound . She is using a subdermal contracept krishna implant. We talked about removal of the implant. We talked about oral contracept krishna pills to control bleeding and prevent cyst formation. She has a history of recurrent cysts. She is tender on exam. [id number] Nelson No MD [facility] [address],[place] [address] 05/16/2025 17:01:36 05/17/2025 09:05:58 Pain in pelvis 20782363 R10.2 78468 Cyst of right ovary 1223 516437 5394092 N83.201 [id number] this patient is a 29-year-ol d female with pelvic pain and an ovarian cyst. We reviewed the ultrasound results today. She has a 5 cm ovarian cyst. We agreed to observe the cyst and repeat ultrasound in 1 month. She will monitor her pain. She is considerin myles surgical remediatbridger n. Spent over 20 minutes on her care in total. We discussed risks, benefits, and alternativ es to surgical treatment. [id number] REDD WAITE MD [facility] [address],[place] [address] 05/20/2025 15:50:53 05/20/2025 17:39:35 Cyst of left ovary 8515923097 0034312 N83.202 168432 - hx of L cystadenom a removed in 11/2024- symptoms now returning (pressure, dyspareuni a, pelvic pain)- new L ovarian cyst measuring 5x2cm- discussed management options including expectant management with repeat US in 1 month as scheduled, Nexplanon removal (rare side effect of nexplanon but cannot rule out), or repeat L ovarian cystectomy - risks and benefits of each option discussed with patient- when patient does not desire , consider OCPs for ovulation suppressio n- patient to call clinic when she has decided what route she would like to take Irregular periods 197538 07 N92.6 07762 - reports irregular bleeding throughout the month- likely due to Nexplanon- would likely resolve with removal; consider removal especially as patient desires Health Concerns Section Related Observation LastModified by Organization Detai ls LastModified Time None Recorded Concern Status LastModified by Organization Details LastModified Time None Recorded Advance Directives Directive N: Payers Insurance Date Sequence Insurance Name Policy Number Policy Real Covered Member ID Real Member ID Guarantor Name 09/16/2022 1 [place] [id number] Louis Cerda [id number] Violet Cerda 05/27/2025 1 [facility] [id number] Louis Cerda [id number] Violet Cerda 05/27/2025 2 [place] [facility] PUBLIC [facility] Violet Joe [id number] Violet Cerda 09/25/2022 2 [place] [id number] Violet Cerda [id number] Violet Cerda Notes Date Note Type Note Provider Name and Address Organization Details Recorded Time 12/30/2024 text/html Is a 29-year-old female presents for postop follow-up. She had a laparoscopic ovarian cystectomy. 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 There was probably residual tumor present. We agreed to periodically repeat ultrasound. Incisions are clean dry and intact. We discussed PCOS her subdermal contraceptive implant. Nelson No MD [address], [place], [address], [facility] 12/30/2024 09:56:02 05/09/2025 text/html Beer - Abnormal BleedingReported by Patient this patient is a 29-year-old female presents for abnormal uterine bleeding and pelvic pain. She is irregularly irregular bleeding. She has pain with intercourse. She has pain at the introitus and pain with deep insertion. We agreed to evaluation. We will obtain pelvic ultrasound. She is using a subdermal contraceptive implant. We talked about removal of the implant. We talked about oral contraceptive pills to control bleeding and prevent cyst formation. She has a history of recurrent cysts. She is tender on exam. Nelson No MD [address], [place], [address], [facility] 05/09/2025 17:46:00 05/16/2025 text/html this patient is a 29-year-old female with pelvic pain and an ovarian cyst. We reviewed the ultrasound results today. She has a 5 cm ovarian cyst. We agreed to observe the cyst and repeat ultrasound in 1 month. She will monitor her pain. She is considering surgical remediation. Spent over 20 minutes on her care in total. We discussed risks, benefits, and alternatives to surgical treatment. Nelson No MD [address], [place], [address], [facility] 05/16/2025 18:25:31 05/20/2025 text/html ROS as noted in the HPI Patient presents for ultrasound follow up of ovarian cyst. She has a history of a left cystadenoma that was removed in 11/2024. She is now having pelvic pain, pressure, and dyspareunia again. She had a pelvic US that showed a simple L ovarian cyst measuring 5x2cm. She also reports irregular bleeding throughout the month. She is using Nexplanon for control but she is interested in conceiving in the near future. REDD WAITE MD [address], [place], [address], [facility] 05/20/2025 17:04:35 OBGyn Episode Ob Episode Information Episode Created Date Number of Fetuses Patient Bloodtype Patient rh Status Prepregnancy Weight lbs Domestic Partner Domestic Partner Phone Father Name Roofing Foreman Status 07/16/20 22 1 O Positive Louis Cerda CLOSED Fetus Data First Name Last Name Admitted to NICU Weight (g) Sex Living Outcome Pediatric Complications Fetus ID Race Codes Race Delivery Type Paul richard 3373.59 05 M true Full Term [id number] Primary Problems Problem Notes family h/o patent ductus wit h males12/24/22- hx shoulder dystocia with brachial plexus injury Problem Name Start Date End Date Resolution Snomed Code Not e Headache 08972159 chronic Pre-eclampsia 393367126 post p artum, started LD ASA Nonreassuring status 042553601 History. Delive red at 39 - induction. Gestational diabetes mellitus 62529572 01/21 - 32u NPH @ [facility].h/o GDMa2. testing Cystic fibrosis 889449730 Sandra ier - FOB - neg. Obesity 348035609 Class 3 - nsts at 34 wks. SARS-CoV-2 07/27/2022 939312948 ASA & se rial growth Vitamin D deficiency 56692966 November - June range 15-16 Rpt Aug/SEP Disorder of placenta 991978209 Bilobed Shoulder dystocia - delivered 587889021 12/24/22- hx miguelu lder dystocia with brachial plexus injury SECTION [...] Weight in lbs Pre/Post Dialysis Refused Weight 253.060445090575 BP Diastolic BP Location Tested BP Systolic [...] Weight in lbs Pre/Post Dialysis Refused Weight 255.130911899246 BP Diastolic BP Location Tested BP Systolic [...] Weight in lbs Pre/Post Dialysis Refused Weight 253.347660725686 BP Diastolic BP Location Tested BP Systolic [...] Weight in lbs Pre/Post Dialysis Refused Weight 257.647408513673 BP Diastolic BP Location Tested BP Systolic [...] Weight in lbs Pre/Post Dialysis Refused Weight 256.372149374373 BP Diastolic BP Location Tested BP Systolic [...] Weight in lbs Pre/Post Dialysis Refused Weight 158.129583708493 BP Diastolic BP Location Tested BP Systolic [...] Weight in lbs Pre/Post Dialysis Refused Weight 255.523586935612 BP Diastolic BP Location Tested BP Systolic [...] Weight in lbs Pre/Post Dialysis Refused Weight 257.374671467303 BP Diastolic BP Location Tested BP Systolic [...] Weight in lbs Pre/Post Dialysis Refused Weight 262.279510841016 BP Diastolic BP Location Tested BP Systolic [...] guidelines given. Pt stopped up at [facility] after seeing supervisor cured meats today and she recommended that pt check [...] Weight in lbs Pre/Post Dialysis Refused Weight 262.923990124939 BP Diastolic BP Location Tested BP Systolic [...] Weight in lbs Pre/Post Dialysis Refused Weight 263.074523440957 BP Diastolic BP Location Tested BP Systolic [...] Weight in lbs Pre/Post Dialysis Refused Weight 263.196527435412 BP Diastolic BP Location Tested BP Systolic [...] Weight in lbs Pre/Post Dialysis Refused Weight 263.952547585336 BP Diastolic BP Location Tested BP Systolic [...] Weight in lbs Pre/Post Dialysis Refused Weight 263.791225101788 BP Diastolic BP Location Tested BP Systolic [...] Weight in lbs Pre/Post Dialysis Refused Weight 265.152995211596 BP Diastolic BP Location Tested BP Systolic [...] Weight in lbs Pre/Post Dialysis Refused Weight 267.059171931516 BP Diastolic BP Location Tested BP Systolic [...] Weight in lbs Pre/Post Dialysis Refused Weight 266.433499722821 BP Diastolic BP Location Tested BP Systolic BP Type 86 125 Fetus Heart Rate Present A 140 Fetus Movement A Yes Comments Doing well. [facility] fasting finally normal, 84-96. All pp normal. US today is vertex. BROCK 7.8, will watch. BPP 10/10. Precautions given. Insulin refilled.Precautions given. Flowsheet Date [...] Weight in lbs Pre/Post Dialysis Refused Weight 267.822429851595 BP Diastolic BP Location Tested BP Systolic [...] Weight in lbs Pre/Post Dialysis Refused Weight 254.560142155478 BP Diastolic BP Location Tested BP Systolic [...] Estim ated Date of Delivery false Thalassemia (Kyrgyz, Spanish, Mediterranean, Or Background): MCV < 80 false Neural Tube Defect (Meningomyelocele, Spina Bifi da, Or Anencephaly) false Congenital Heart Defect false Down Syndrome false Yury-Sachs (eg, Yazdanism, Cajun, Uzbek-Delong) f alse Cristiano Disease false Sickle Cell Disease Or Trait () false Hemophilia Or Other Blood Disorders false Muscular Dystrophy false Cystic Fibrosis false Apache's Chorea false Intellectual Disability/Autism false If Yes, [...] None Regional-Sp [facility]al 39.2 Low Transvers e Mireya Whitt MD Pre-eclam psia, GDM, Maternal Obesity, Disorder of placenta & Hx of shoulder dystocia Discharge Information Feeding Method Contraceptive Method Maternal HG B and HCT Levels Ob Episode Information Episode Created Date Number of Fetuses Patient Bloodtype Patient rh Status Prepregnancy Weight lbs Domestic Partner Domestic Partner Phone Father Name Roofing Foreman Status 07/25/20 22 1 CLOSED Fetus Data First Name Last Name Admitted to NICU Weight (g) Sex Living Outcome Pediatric Complications Fetus ID Race Codes Race Delivery Type , Spontane ous [id number] Asher Calculation Initial Asher Date Initial Exam [...] Domestic Partner Domestic Partner Phone Father Name Roofing Foreman Status 12/21/19 22 1 CLOSED Fetus Data First Name Last Name Admitted to NICU Weight (g) Sex Living Outcome Pediatric Complications Fetus ID Race Codes Race Delivery Type 3146.56 7704 F Full Term [id number] Vaginal Delivery Asher Calculation Initial Asher Date [...]
--- OUTSIDE RECORDS SUMMARY | 2025-05-30 01:01 | XMS_ITS | Encounter Summary ---
Author Organization [facility] Healthcare Address [address] [place] [address] Care Team Providers Care Beef Ribber Name Role Phone Los Luque MD Primary Care Provider [phone] Tucker Esquivel MD, Baldomero Malik Unavailable [phone] Encounter Details Date Type Department Care Team (Late st Contact Info) Description 03/30/2025 Results Follow-Up [facility] [address] [address] Renata Madison, MEGHA [address] [place] [address] Vitamin D 25 hydroxy, Ferritin, Iron profile w/ IBC, Additional followed-up results: 2 Social History Tobacco Use Types Packs/Day Years Used Date Smoking Tobacco: Never Smokeless Tobacco: Never Alcohol Use Standard Drinks/Week Comments No 0 (1 standard drink = 0.6 oz pur e alcohol) [facility] Utilities Answer Date Recorded In the past 12 months has e electric, gas, oil, or water company [...] often do you attend chur ch or hinduism services? Never 11/02/2024 Do you belong to any clubs o r organizations such as jain groups, unions, fraternal or athletic groups, or [...] staff should administer the PHQ-9) 0 11/02/2024 [facility] Occupat ional [facility] - Occupational Stress [...] any time in the past 12 m [facility], were you homeless or living in a fci (including now)? No 11/02/2024 Personal Safety Answer [...] Orientation Straight 04/06/2024 9: 59 AM CDT documented as of this encounter Plan of Treatment Not on file documented as of this encounter Visit Diagnoses Not on filedocumented in this encounter Additional Health Concerns Infection Onset Date Last Indicated Resolved Time COVID: Suspected 04/05/2025 04/05/2025 04/05/2025 6:49 PM CDT documented as of this encounter Care Teams Beef Ribber Relationship Specialty Start Date End Date Los Luque MD [address] [address] PCP - General Family Medicine 01/07/22 [place] [address] [address] Consulting Physician Orthopedic Surgery 01/22/24 documented as of this encounter
--- OUTSIDE RECORDS SUMMARY | 2025-05-30 01:01 | XMS_ITS | Clinical Summary ---
Author Organization [facility] Address [address] [place] [address] Phone Care Team Providers Care Teasel Gig Operator Name Role Phone Unavailable Primary Care Provider [...] on file Legal Sex Female 2:50 PM LACE SEWER Gender Identity Not on file Sexual Orientation Not on file Last Filed Vital Signs Vital Sign Reading Time Taken Comments Blood Pressure 108/70 10/20/2023 10:49 AM LACE SEWER Pulse 96 10/20/2023 10:49 AM LACE SEWER Temperature 36.1 C (97 F) 10/20/2023 10:49 AM LACE SEWER Respiratory Rate 20 10/20/2023 10:49 AM LACE SEWER Oxygen Saturation 97% 10/20/2023 10:49 AM LACE SEWER Inhaled Oxygen Concentration - - Weight 109.3 kg (241 lb) 10/01/2021 1:53 PM LACE SEWER Height 157.5 cm (5' 2) 10/01/2021 1:53 PM LACE SEWER Body Mass Index 44.08 10/01/2021 1:53 PM LACE SEWER Plan of Treatment Health Maintenance Due Date Last Done Comments Hepatitis C Virus (HCV) Screening 1995 Pap Smear 10/06/2023 10/06/2020 Influenza Immunization (#1) 04/25/202505/25, 06/25/2021, 06/16/2020, Additional history exists SARS-COV-2 Immunization ( - 2024- season) 2025 01/15/2021, 12/25/2020 DTaP/Tdap/Td Immunization (11 - Td or Tdap) 01/29/2033 01/29/2023, 02/05/2021, 09/17/2016, Additional history exists Respiratory Syncytial Virus (RSV) Immunization (Adult) (1 - 1-dose 75+ series) 2072 Hepatitis B Immunization Completed 998, 1997, 1997, Additional history exists Human Papillomavirus (HPV) Immunization Completed 03/03/2013, 07/06/2012, 05/04/2012, Additional history exists Meningococcal Immunization (ACWY) Completed 06/12/2015 Pneumococcal Immunization Combined Aged Out No longer eligible based on patient's age to complete this topic Rotavirus Immunization Aged Out No lo nger eligible based on patient's age to complete this topic Insurance MEDICAID [place] [address]
--- OUTSIDE RECORDS SUMMARY | 2025-05-30 01:01 | XMS_ITS ---
Care Plan - [facility] Created on: May 30, 2025 ANÍBAL, JESSICA Holland : 1995 Sex: Female Author Organization [facility] Address [address] [place] [address] Phone Care Team Providers Care Geoduck Diver Name Role Phone MAIKEL ARREDONDO, ROSSY Holland Primary Care Provider [phone]
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
--- OUTSIDE RECORDS SUMMARY | 2025-05-30 01:02 | XMS_ITS ---
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 07/12/2015 FELIPA Ashley RIVERARIG BARYTES GRINDER-BC Active Last Documented On 5 6:11PM ; [facility] Note: Unchanged Conjunctivitis Mucopurulent 07/12/2015 Unknown FELIPA A KAHRIG BARYTES GRINDER-BC Resolved Last Documented On 6 4:03PM ; [facility] Note: Unchanged Plan of Treatment Findings Encounter Date Ordered return to the clinic if condition worsens or new symptoms arise COVID SICK VISIT- ESTABLISHED PATIENT with KRYSTAL FUENTES DNP 09/26/2023 Last Documented On 4 7:33PM ; [facility] Ordered patient will call fo r appointment as needed COVID SICK VISIT- ESTABLISHED PATIENT with EZE VICKERS APRN 09/24/2023 Last Documented On 4 12:15PM ; [facility] Ordered return to the clinic if condition worsens or new symptoms arise COVID SICK VISIT- ESTABLISHED PATIENT with EZE VICKERS [employer]ORER [employer]TE[employer] 09/24/2023 Last Documented On 4 12:15PM ; [facility] The options include close observation CO VID SICK VISIT- ESTABLISHED PATIENT with CANDY MONTANO BARYTES GRINDER-C 07/14/2023 Last Documented On 3 5:30PM ; [facility] Watch for signs/symptoms of infection, return to the clinic if seen COVID SICK VISIT- ESTABLISHED PATIENT with CANDY MONTANO BARYTES GRINDER-C 07/14/2023 Last Documented On 3 5:30PM ; [facility] Ordered patient will call fo r appointment as needed COVID SICK VISIT- ESTABLISHED PATIENT with PILI CALIXTO BARYTES GRINDER-BC 07/12/2023 Last Documented On 3 1:41PM ; [facility] Ordered return to the clinic if condition worsens or new symptoms arise COVID SICK VISIT- ESTABLISHED PATIENT with PILI CALIXTO BARYTES GRINDER-BC 07/12/2023 Last Documented On 3 1:41PM ; [facility] Ordered patient will call fo r appointment as needed COVID SICK VISIT- ESTABLISHED PATIENT with PILI CALIXTO BARYTES GRINDER-BC 07/26/2022 Last Documented On 2 10:28AM ; [facility] Ordered return to the clinic if condition worsens or new symptoms arise COVID SICK VISIT- ESTABLISHED PATIENT with PILI CALIXTO BARYTES GRINDER-BC 07/26/2022 Last Documented On 2 10:28AM ; [facility] Continue current medication COVID SICK V ISIT- ESTABLISHED PATIENT with CANDY MONTANO BARYTES GRINDER-C 07/12/2022 Last Documented On 2 10:46AM ; [facility] The options include close observation CO VID SICK VISIT- ESTABLISHED PATIENT with CANDY MONTANO BARYTES GRINDER-C 07/12/2022 Last Documented On 2 10:46AM ; [facility] Ordered follow-up visit in 1 -2 weeks with an office visit or sooner if symptoms persist or worsen COVID SICK VISIT- ESTABLISHED PATIENT with PILI CALIXTO BARYTES GRINDER-BC 08/22/2021 Last Documented On 1 6:26PM ; [facility] Ordered patient to call if ashley hoyos develops COVID SICK VISIT- ESTABLISHED PATIENT with PILI CALIXTO [facility]- 08/22/2021 Last Documented On 1 6:26PM ; [facility] Ordered return to the clinic if condition worsens or new symptoms arise COVID SICK VISIT- ESTABLISHED PATIENT with PILI CALIXTO [facility]- 08/22/2021 Last Documented On 1 6:26PM ; [facility] Ordered Clinical summary pro vided to patient . Plan discussed and patient/parent/caregiver states understanding 1 MONTH CHECK with RODDY DELAROSA PA-C 12/22/2019 Last Documented On 0 11:18AM ; [facility] Ordered follow-up visit as n eeded with an office visit. Wean off the Topamax for now and see how your headaches and stomach goes. May need to switch to propranolol if headaches become severe. Discussed symptoms could be due to OCPs. May need to discuss switching with your PROMOTION WRITER. Call sooner if needed 1 MONTH CHECK with RODDY DELAROSA PA-C 12/22/2019 Last Documented On 0 11:18AM ; [facility] Ordered Clinical summary pro vided to patient . Plan discussed and patient/parent/caregiver states understanding PROBLEM VISIT with RODDY DELAROSA PA-C 11/29/2019 Last Documented On 0 11:11AM ; [facility] Ordered follow-up visit 1 mo . Labs today. Will get MRI of head. See Ophthalmology. Call sooner if needed PROBLEM VISIT with RODDY DELAROSA PA-C 11/29/2019 Last Documented On 0 11:11AM ; [facility] Ordered Clinical summary pro vided to patient PROMOTION WRITER EXAM with RUTHANN ROMANO RN [facility] 11/17/2019 Last Documented On 0 11:49AM ; [facility] Ordered weight loss diet PROMOTION WRITER EXAM with RUTHANN AGUILAR RN [facility] 11/17/2019 Last Documented On 0 11:49AM ; [facility] Ordered Clinical summary pro vided to patient . Plan discussed and patient/parent/caregiver states understanding SICK VISIT with RODDY DELAROSA PA-C 10/18/2019 Last Documented On 0 4:02PM ; [facility] Ordered follow-up visit as n eeded with an office visit. Finish z pack. Go to ER if breathing worsens. Seek medical care if symptoms worsen/new symptoms arise SICK VISIT with RODDY DELAROSA PA-C 10/18/2019 Last Documented On 0 4:02PM ; [facility] Ordered follow-up visit in 1 -2 weeks with an office visit or sooner if symptoms persist or worsen WALK-IN CLINIC SICK VISIT with PILI CALIXTO [facility] 10/16/2019 Last Documented On 0 1:07PM ; [facility] Ordered patient to call if ashley hoyos develops WALK-IN CLINIC SICK VISIT with PILI CALIXTO [facility] 10/16/2019 Last Documented On 0 1:07PM ; [facility] Ordered return to the clinic if condition worsens or new symptoms arise WALK-IN CLINIC SICK VISIT with PILI CALIXTO [facility] 10/16/2019 Last Documented On 0 1:07PM ; [facility] Ordered Clinical summary pro vided to patient . Plan discussed and patient/parent/caregiver states understanding 1 WK CK-UP with RODDY DELAROSA PA-C 09/24/2019 Last Documented On 0 2:08PM ; [facility] Ordered follow-up visit 2 we eks. Take 800mg ibuprofen twice a day for 2 wks. Alternate local ice/heat during the day. Cont ankle brace during the day and off at night. Cont physical therapy. Discussed MRI if pain continues in 2 weeks. Call sooner if needed 1 WK CK-UP with RODDY DELAROSA PA-C 09/24/2019 Last Documented On 0 2:08PM ; [facility] Clinical summary provided to patient PRO BLEM VISIT with PILI SANDOVAL [facility] 09/17/2019 Last Documented On 0 3:12PM ; [facility] Plan of care reviewed and agreed to PROB CHANDU VISIT with PILI SANDOVAL [facility] 09/17/2019 Last Documented On 0 3:12PM ; [facility] Ordered Clinical summary pro vided to patient . Plan discussed and patient/parent/caregiver states understanding PROBLEM VISIT with RODDY DELAROSA PA-C 07/30/2019 Last Documented On 9 6:39PM ; [facility] Ordered follow-up visit as n eeded with an office visit. Recheck urine. Avoid fried/fatty, spicy foods that increase stomach acid or cause symptoms. Take ranitidine twice a day. Local heat to back and take 600-800mg ibuprofen twice a day for a good week. Discussed referral to specialist GI? Repeat ultrasound in 4 wks. Call sooner if needed. Go to ER if pain becomes severe PROBLEM VISIT with RODDY DELAROSA PA-C 07/30/2019 Last Documented On 9 6:39PM ; [facility] Ordered Clinical summary pro vided to patient . Plan discussed and patient/parent/caregiver states understanding PROBLEM VISIT with RODDY DELAROSA PA-C 07/14/2019 Last Documented On 9 5:17PM ; [facility] Ordered follow-up visit as n eeded with an office visit. Drink more water. Urinate often. Labs today. Will get ultrasound of your kidneys and gallbladder---checking for stones. Ranitidine for the acid/indigestion. Call sooner if needed. Go to ER if pain becomes severe PROBLEM VISIT with RODDY DELAROSA PA-C 07/14/2019 Last Documented On 9 5:17PM ; [facility] Ordered Clinical summary pro vided to patient . Plan discussed and patient/parent/caregiver states understanding CHECK UP with RODDY DELAROSA PA-C 02/16/2019 Last Documented On 9 10:51AM ; [facility] Ordered follow-up visit as n eeded with an office visit. Repeat labs today and will go from there. Tylenol/ibuprofen as needed for pain. Push fluids, stay hydrated. Stool softeners/laxatives as needed for constipation. Call sooner if needed CHECK UP with RODDY DELAROSA PA-C 02/16/2019 Last Documented On 9 10:51AM ; [facility] Ordered referred to primary care physician WALK-IN CLINIC SICK VISIT with PILI MERCADO 02/10/2019 Last Documented On 9 11:16AM ; [facility] Ordered Transition in care, clinical summary provided WALK-IN CLINIC SICK VISIT with PILI CALIXTO [facility]- 02/10/2019 Last Documented On 9 11:16AM ; [facility] Ordered follow-up visit as n eeded with an office visit if symptoms persist or worsen WALK-IN CLINIC SICK VISIT with PILI CALIXTO [facility]- 11/05/2018 Last Documented On 9 9:17AM ; [facility] Ordered patient to call if ashley hoyos develops WALK-IN CLINIC SICK VISIT with PILI CALIXTO [facility]- 11/05/2018 Last Documented On 9 9:17AM ; [facility] Ordered referred to primary care physician WALK-IN CLINIC SICK VISIT with PILI CALIXTO [facility]- 11/05/2018 Last Documented On 9 9:17AM ; [facility] Ordered return to the clinic if condition worsens or new symptoms arise WALK-IN CLINIC SICK VISIT with PILI CALIXTO [facility]- 11/05/2018 Last Documented On 9 9:17AM ; [facility] Ordered Transition in care, clinical summary provided WALK-IN CLINIC SICK VISIT with PILI CALIXTO [facility]- 11/05/2018 Last Documented On 9 9:17AM ; [facility] Ordered patient will call fo r appointment as needed WALK-IN CLINIC SICK VISIT with CANDACE GUERRERO [facility]- 11/03/2018 Last Documented On 9 3:24PM ; [facility] Ordered return to the clinic if condition worsens or new symptoms arise WALK-IN CLINIC SICK VISIT with CANDACE GUERRERO [facility]- 11/03/2018 Last Documented On 9 3:24PM ; [facility] Ordered Clinical summary pro vided to patient PROMOTION WRITER EXAM with RUTHANN ROMANO RN [facility] 09/01/2018 Last Documented On 9 2:27PM ; [facility] Ordered follow-up visit in 1 -2 weeks with an office visit or sooner if symptoms persist or worsen WALK-IN CLINIC SICK VISIT with PILI CALIXTO [facility]- 07/01/2018 Last Documented On 8 12:16PM ; [facility] Ordered patient to call if ashley hoyos develops WALK-IN CLINIC SICK VISIT with PILI CALIXTO [facility]- 07/01/2018 Last Documented On 8 12:16PM ; [facility] Ordered referred to primary care physician WALK-IN CLINIC SICK VISIT with PILI CALIXTO [facility]- 07/01/2018 Last Documented On 8 12:16PM ; [facility] Ordered return to the clinic if condition worsens or new symptoms arise WALK-IN CLINIC SICK VISIT with PILI CALIXTO [facility]- 07/01/2018 Last Documented On 8 12:16PM ; [facility] Ordered Transition in care, clinical summary provided WALK-IN CLINIC SICK VISIT with PILI CALIXTO [facility]- 07/01/2018 Last Documented On 8 12:16PM ; [facility] Ordered DNA probe for Neisse conrad gonorrhoeae and Chlamydia trachomatis 1 MONTH CHECK with CAROL PANG MD 03/17/2018 Last Documented On 8 11:13AM ; [facility] Post Concussion activity exp lained. Rest including brain rest, NO screen time. Once headache free for 24 hours may slowly advance activty PROBLEM VISIT with SHANT STRATTON PA-C 02/10/2018 Last Documented On 8 2:18PM ; [facility] Ordered return to the clinic if condition worsens or new symptoms arise PROBLEM VISIT with SHANT STRATTON PA-C 02/10/2018 Last Documented On 8 2:18PM ; [facility] Go to the emergency room if condition worsens WALK-IN CLINIC SICK VISIT with PILI CALIXTO [facility]- 11/24/2017 Last Documented On 8 4:05PM ; [facility] Ordered analgesics (non-ster oidal anti-inflammatory agents) WALK-IN CLINIC SICK VISIT with PILI CALIXTO [facility]- 11/24/2017 Last Documented On 8 4:05PM ; [facility] Ordered follow-up visit as n eeded with an office visit. WALK-IN CLINIC SICK VISIT with PILI CALIXTO [facility]- 11/24/2017 Last Documented On 8 4:05PM ; [facility] Ordered home range of motion exercises W ALK-IN CLINIC SICK VISIT with PILI CALIXTO BARYTES GRINDER-BC 11/24/2017 Last Documented On 8 4:05PM ; [facility] Ordered moist heat WALK-IN CLINIC SICK VISIT wit h PILI CALIXTO BARYTES GRINDER-BC 11/24/2017 Last Documented On 8 4:05PM ; [facility] Ordered referred to primary care physician WALK-IN CLINIC SICK VISIT with PILI CALIXTO BARYTES GRINDER-BC 11/24/2017 Last Documented On 8 4:05PM ; [facility] Ordered Transition in care, clinical summary provided WALK-IN CLINIC SICK VISIT with PILI CALIXTO BARYTES GRINDER-BC 11/24/2017 Last Documented On 8 4:05PM ; [facility] Continue current medication but instructed to take mobic in the morning and see how evening pain is. Encouraged to diet and exercise and continue with physical therapy exercises CHECK UP with SHANT STRATTON PA-C 09/12/2017 Last Documented On 8 2:09PM ; [facility] Ordered acetaminophen CHECK UP with SHANT HOWELL PA-C 09/12/2017 Last Documented On 8 2:09PM ; [facility] Ordered analgesics (non-ster oidal anti-inflammatory agents) CHECK UP with SHANT AREVALO-C 09/12/2017 Last Documented On 8 2:09PM ; [facility] Ordered home range of motion exercises C HECK UP with SHANT AREVALO-Naar 09/12/2017 Last Documented On 8 2:09PM ; [facility] Ordered moist heat CHECK UP with SHANT AREVALO-Nara 09/12/2017 Last Documented On 8 2:09PM ; [facility] Ordered return to the clinic if condition worsens or new symptoms arise CHECK UP with SHANT AREVALO-Nara 09/12/2017 Last Documented On 8 2:09PM ; [facility] Go to the emergency room if condition worsens WALK-IN CLINIC SICK VISIT with IPLI JAYP-BC 08/24/2017 Last Documented On 7 1:27PM ; [facility] Ordered referred to primary care physician WALK-IN CLINIC SICK VISIT with PILI CALIXTO [facility] 08/24/2017 Last Documented On 7 1:27PM ; [facility] Ordered return to the clinic if condition worsens or new symptoms arise WALK-IN CLINIC SICK VISIT with PILI CALIXTO [facility] 08/24/2017 Last Documented On 7 1:27PM ; [facility] Ordered Transition in care, clinical summary provided WALK-IN CLINIC SICK VISIT with PILI CALIXTO [facility] 08/24/2017 Last Documented On 7 1:27PM ; [facility] Ordered analgesics (non-ster oidal anti-inflammatory agents) CHECK UP with SHANT Bud KIMPRICH PA-C 07/02/2017 Last Documented On 8 3:21PM ; [facility] Ordered home range of motion exercises C HECK UP with SHANT Bud KIMPRICH PA-C 07/02/2017 Last Documented On 8 3:21PM ; [facility] Ordered moist heat CHECK UP with SHANT Bud ZIPPR ICH PA-C 07/02/2017 Last Documented On 8 3:21PM ; [facility] Ordered return to the clinic if condition worsens or new symptoms arise CHECK UP with SHANT Bud KIMPRICH PA-C 07/02/2017 Last Documented On 8 3:21PM ; [facility] Ordered work restrictions ma y return to work with no no restrictions CHECK UP with SHANT Bud KIMPRICH PA-C 07/02/2017 Last Documented On 8 3:21PM ; [facility] Ordered analgesics (non-ster oidal anti-inflammatory agents) CHECK UP with SHANT Bud KIMPRICH PA-C 06/18/2017 Last Documented On 7 1:48PM ; [facility] Ordered home range of motion exercises C HECK UP with SHANT Bud KIMPRICH PA-C 06/18/2017 Last Documented On 7 1:48PM ; [facility] Ordered moist heat CHECK UP with SHANT Bud ZIPPR ICH PA-C 06/18/2017 Last Documented On 7 1:48PM ; [facility] Ordered return to the clinic if condition worsens or new symptoms arise CHECK UP with SHANT KIMPRICH PA-C 06/18/2017 Last Documented On 7 1:48PM ; [facility] Ordered work restrictions ma y return to work with no lifting over 10 lbs x 2 more weeks CHECK UP with SHANT KIMPRICH PA-C 06/18/2017 Last Documented On 7 1:48PM ; [facility] Ordered analgesics (non-ster oidal anti-inflammatory agents) CHECK UP with SHANT KIMPRICH PA-C 06/04/2017 Last Documented On 7 9:07AM ; [facility] Ordered home range of motion exercises C HECK UP with SHANT KIMPRICH PA-C 06/04/2017 Last Documented On 7 9:07AM ; [facility] Ordered moist heat CHECK UP with SHANT KIMPR ICH PA-C 06/04/2017 Last Documented On 7 9:07AM ; [facility] Ordered return to the clinic if condition worsens or new symptoms arise CHECK UP with SHANT KIMPRICH PA-C 06/04/2017 Last Documented On 7 9:07AM ; [facility] Ordered work restrictions ma y return to work with no lifting over 10 lbs CHECK UP with SHANT KIMPRICH PA-C 06/04/2017 Last Documented On 7 9:07AM ; [facility] Ordered analgesics (non-ster oidal anti-inflammatory agents) EMERGENCY ROOM FOLLOW UP with SHANT KIMPRICH PA-C 05/26/2017 Last Documented On 7 10:14PM ; [facility] Ordered home range of motion exercises EMERGENCY ROOM FOLLOW UP with SHANT KIMPRICH PA-C 05/26/2017 Last Documented On 7 10:14PM ; [facility] Ordered moist heat EMERGENCY ROOM FOLLOW UP with SHANTTHANH KIMPRICH PA-C 05/26/2017 Last Documented On 7 10:14PM ; [facility] Ordered return to the clinic if condition worsens or new symptoms arise EMERGENCY ROOM FOLLOW UP with SHANT D VIRAL GRIFFITH 05/26/2017 Last Documented On 7 10:14PM ; [facility] Ordered work restrictions OF F WORK X 2 MORE WEEKS EMERGENCY ROOM FOLLOW UP with SHANT Farrell VIRAL GRIFFITH 05/26/2017 Last Documented On 7 10:14PM ; [facility] Ordered return to the clinic if condition worsens or new symptoms arise EMERGENCY ROOM FOLLOW UP with SHATNTHANH STRATTON PA-C 05/20/2017 Last Documented On 7 10:44AM ; [facility] Pt to use prescription as or dered. Purpose of and use of medication discussed. WALK-IN CLINIC SICK VISIT with FELIPA DAVIS [facility] 03/02/2017 Last Documented On 7 5:47PM ; [facility] Ordered disposition - Discus sed etiology and course of atopic dermatitis. Discussed limiting bathing and using oily soaps. Also discussed need for lubrication of skin on a regular basis, with intermittent use of topical steroids or topical immune modulator creams WALK-IN CLINIC SICK VISIT with PILI CALIXTO [facility] 12/04/2016 Last Documented On 7 10:53AM ; [facility] Ordered follow-up visit 5-7 days if symptoms persist or worsen WALK-IN CLINIC SICK VISIT with PILI CALIXTO [facility] 12/04/2016 Last Documented On 7 10:53AM ; [facility] Ordered referred to primary care physician WALK-IN CLINIC SICK VISIT with PILI CALIXTO [facility] 12/04/2016 Last Documented On 7 10:53AM ; [facility] Ordered return to the clinic if condition worsens or new symptoms arise WALK-IN CLINIC SICK VISIT with PILI CALIXTO [facility] 12/04/2016 Last Documented On 7 10:53AM ; [facility] Ordered Transition in care, clinical summary provided WALK-IN CLINIC SICK VISIT with PILI CALIXTO [facility] 12/04/2016 Last Documented On 7 10:53AM ; [facility] Ordered return to the clinic if condition worsens or new symptoms arise PROBLEM VISIT with SHANT STRATTON PA-C 11/20/2016 Last Documented On 7 3:44PM ; [facility] Pt to use prescription as or dered. Purpose of and use of medication discussed. WALK-IN CLINIC SICK VISIT with FELIPA Ashley DAV[facility] 10/07/2016 Last Documented On 7 1:10PM ; [facility] Ordered patient will call fo r appointment as needed WALK-IN CLINIC SICK VISIT with KRYSTAL GANN [facility]- 09/16/2016 Last Documented On 7 2:10PM ; [facility] Ordered follow-up visit as n eeded with an office visit if symptoms persist or worsen SICK VISIT with PILI CALIXTO [facility]- 07/04/2016 Last Documented On 6 4:55PM ; [facility] Ordered patient to call if p roblem develops SICK VISIT with PILI CALIXTO [facility]- 07/04/2016 Last Documented On 6 4:55PM ; [facility] Ordered referred to primary care physician SICK VISIT with PILI CALIXTO [facility]- 07/04/2016 Last Documented On 6 4:55PM ; [facility] Ordered return to the clinic if condition worsens or new symptoms arise SICK VISIT with PILI CALIXTO [facility]- 07/04/2016 Last Documented On 6 4:55PM ; [facility] Ordered Transition in care, clinical summary provided SICK VISIT with PILI CALIXTO [facility]- 07/04/2016 Last Documented On 6 4:55PM ; [facility] Ordered follow-up visit as n eeded with an office visit if symptoms persist or worsen SICK VISIT with KRYSTAL GANN [facility]- 01/13/2016 Last Documented On 6 2:26PM ; [facility] Ordered follow-up visit in 2 -3 days with an office visit SICK VISIT with KRYSTAL GANN [facility] 01/13/2016 Last Documented On 6 2:26PM ; [facility] Ordered patient to call if p roblem develops SICK VISIT with KRYSTAL GANN [facility] 01/13/2016 Last Documented On 6 2:26PM ; [facility] Ordered return to the clinic if condition worsens or new symptoms arise SICK VISIT with KRYSTALEliezer GANN [facility] 01/13/2016 Last Documented On 6 2:26PM ; [facility] Ordered follow-up visit in 3 -5 days with an office visit. With PCP SICK VISIT with FELIPA DAVIS [facility] 11/10/2015 Last Documented On 6 1:59PM ; [facility] Ordered patient to call if ashley hoyos develops SICK VISIT with MONO DURBIN PA-C 10/30/2015 Last Documented On 6 12:44PM ; [facility] Ordered return to the clinic if condition worsens or new symptoms arise SICK VISIT with MONO DURBIN PA-C 10/30/2015 Last Documented On 6 12:44PM ; [facility] Ordered return to the clinic if condition worsens or new symptoms arise SICK VISIT with SHANT AREVALO-C 10/24/2015 Last Documented On 6 10:33AM ; [facility] Ordered follow-up visit in 1 month with an office visit. F/U with PCP PROBLEM VISIT with FELIPA DAVIS [facility] 07/12/2015 Last Documented On 5 4:11PM ; [facility] Ordered return to the clinic if condition worsens or new symptoms arise COnt with referral to [facility] GENERAL OFFICE VISIT with SHANT AREVALO-C 06/14/2015 Last Documented On 5 1:50PM ; [facility] Ordered return to the clinic if condition worsens or new symptoms arise COnt with referral to [facility] PROBLEM VISIT with SHANT AREVALO-C 05/26/2015 Last Documented On 5 1:59PM ; [facility] Ordered follow-up visit to ER [facility] EM VISIT with FELIPA DAVIS BARYTES GRINDER-BC 05/18/2015 Last Documented On 5 7:07PM ; [facility] Increase fluids PROBLEM VISIT with SHANT AREVALO-C 05/11/2015 Last Documented On 5 2:13PM ; [facility] Ordered return to the clinic if condition worsens or new symptoms arise PROBLEM VISIT with SHANT Farrell VIRAL PA-C 05/11/2015 Last Documented On 5 2:13PM ; [facility] Increase fluids PROBLEM VISIT with SHANT KIM ARIELLA PA-C 05/08/2015 Last Documented On 5 8:41AM ; [facility] Ordered return to the clinic if condition worsens or new symptoms arise PROBLEM VISIT with SHANT Farrell VIRAL PA-C 05/08/2015 Last Documented On 5 8:41AM ; [facility] Ordered follow-up visit with PCP if symptoms not resolving within 10 days SICK VISIT with FELIPA DAVIS [facility]- 04/24/2015 Last Documented On 5 1:19PM ; [facility] return for pap smear when no t on menses CONSULTATION with SHANT Bud VIRAL PA-C 03/20/2015 Last Documented On 5 3:33PM ; [facility] Ordered return to the clinic if condition worsens or new symptoms arise CONSULTATION with SHANT Farrell VIRAL PA-C 03/20/2015 Last Documented On 5 3:33PM ; [facility] Ordered follow-up visit in 5 -7 days with an office visit if symptoms persist or soon if symptoms worsen. Go to ER if symptoms worsen while on antibiotics Throat culture sent will call patient with results SICK VISIT with PILI CALIXTO [facility]- 03/07/2015 Last Documented On 5 6:50PM ; [facility] Increase fluids SICK VISIT with SHANT Farrell MCKENZIE CANCHOLA PA-C 07/07/2013 Last Documented On 3 9:24AM ; [facility] OTC Ibuprofen as needed for pain, 600mg TID SICK VISIT with SHANT Farrell VIRAL PA-C 07/07/2013 Last Documented On 3 9:24AM ; [facility] Ordered follow-up visit as n eeded with an office visit. SICK VISIT with SHANT Farrell VIRAL PA-C 07/07/2013 Last Documented On 3 9:24AM ; [facility] Ordered return to the clinic if condition worsens or new symptoms arise SICK VISIT with SHANT STRATTON PA-C 07/07/2013 Last Documented On 3 9:24AM ; [facility] OTC Ibuprofen as needed for pain, 600mg TID NEW PATIENT VISIT with SHANT STRATTON PA-C 06/09/2013 Last Documented On 3 2:39PM ; [facility] Ordered follow-up visit as n eeded with an office visit. NEW PATIENT VISIT with SHANT STRATTON PA-C 06/09/2013 Last Documented On 3 2:39PM ; [facility] Ordered return to the clinic if condition worsens or new symptoms arise NEW PATIENT VISIT with SHANT STRATTON PA-C 06/09/2013 Last Documented On 3 2:39PM ; [facility] Referrals To Diagnosis ENT Specialist [facility] Last Documented On 4 11:05AM ; [facility] Rn Hemodialysis Pelvic and perin eal pain Last Documented On 6 3:08PM ; [facility] Urologist Other chronic cy stitis without hematuria Note: female Last Documented On 5 2:39PM ; [facility] Ophthalmology KATHARINA GOLD M.D. Unspecified v isual loss Last Documented On 0 2:59PM ; [facility] Instructions to patient Instructions for patient Last Documented On 4 12:08PM ; [facility] Intervention and counseling on cessation of tobacco use Last Documented On 4 8:59AM ; [facility] Watch for signs/symptoms of infection, return to the clinic if seen Last Documented On 3 4:53PM ; [facility] Instructions for patient Last Documented On 3 1:39PM ; [facility] Intervention and counseling on cessation of tobacco use Last Documented On 3 1:20PM ; [facility] Instructions for patient Last Documented On 2 10:24AM ; [facility] Go to the emergency room if condition worsens Last Documented On 1 6:20PM ; [facility] Watch for signs/symptoms of infection Last Documented On 1 6:20PM ; [facility] Watch for signs/symptoms of infection, return to the clinic if seen Last Documented On 1 6:20PM ; [facility] Instructions for patient : B reast Self Exam discussed and technique reviewed Last Documented On 0 11:23AM ; [facility] Use a condom during sexual i ntercourse Last Documented On 0 11:23AM ; [facility] Lose weight Last Documented On 0 11:23AM ; [facility] Instructed to call if excess krishna bleeding or abdominal/pelvic pain Last Documented On 0 11:23AM ; [facility] Recommend diet and exercise at least 30 min three times per week Last Documented On 0 11:23AM ; [facility] Go to the emergency room if condition worsens Last Documented On 0 12:45PM ; [facility] Watch for signs/symptoms of infection Last Documented On 0 12:45PM ; [facility] Watch for signs/symptoms of infection, return to the clinic if seen Last Documented On 0 12:45PM ; [facility] Go to the emergency room if condition worsens Last Documented On 9 9:12AM ; [facility] Watch for signs/symptoms of infection Last Documented On 9 9:12AM ; [facility] Watch for signs/symptoms of infection, return to the clinic if seen Last Documented On 9 9:12AM ; [facility] Instructions for patient : B reast Self Exam discussed and technique reviewed Last Documented On 9 2:07PM ; [facility] Use a condom during sexual i ntercourse Last Documented On 9 2:07PM ; [facility] Instructed to call if excess krishna bleeding or abdominal/pelvic pain Last Documented On 9 2:07PM ; [facility] Recommend diet and exercise at least 30 min three times per week Last Documented On 9 2:07PM ; [facility] Go to the emergency room if condition worsens Last Documented On 8 12:15PM ; [facility] Watch for signs/symptoms of infection Last Documented On 8 12:15PM ; [facility] Watch for signs/symptoms of infection, return to the clinic if seen Last Documented On 8 12:15PM ; [facility] Go to the emergency room if condition worsens Last Documented On 8 2:17PM ; [facility] Go to the emergency room if condition worsens Last Documented On 8 4:03PM ; [facility] Watch for signs/symptoms of infection, return to the clinic if seen Last Documented On 8 4:01PM ; [facility] Recommend diet and exercise at least 30 min three times per week Last Documented On 8 11:51AM ; [facility] Go to the emergency room if condition worsens Last Documented On 7 1:24PM ; [facility] Watch for signs/symptoms of infection, return to the clinic if seen Last Documented On 7 1:24PM ; [facility] Instructions for patient : B reast Self Exam discussed Last Documented On 7 1:31PM ; [facility] Go to the emergency room if condition worsens Last Documented On 7 1:39PM ; [facility] Go to the emergency room if condition worsens Last Documented On 7 8:59AM ; [facility] Go to the emergency room if condition worsens Last Documented On 7 2:28PM ; [facility] Go to the emergency room if condition worsens Last Documented On 7 9:45AM ; [facility] Watch for signs/symptoms of infection, return to the clinic if seen Last Documented On 7 10:52AM ; [facility] Go to the emergency room if condition worsens Last Documented On 6 4:53PM ; [facility] Watch for signs/symptoms of infection Last Documented On 6 4:53PM ; [facility] Watch for signs/symptoms of infection, return to the clinic if seen Last Documented On 6 4:53PM ; [facility] Instructions for patient : B reast Self Exam discussed Last Documented On 6 1:31PM ; [facility] Return to the clinic if cond ition worsens or new symptoms arise Last Documented On 6 2:22PM ; [facility] Go to the emergency room if condition worsens Last Documented On 6 2:22PM ; [facility] Watch for signs/symptoms of infection Last Documented On 6 2:22PM ; [facility] Watch for signs/symptoms of infection, return to the clinic if seen Last Documented On 6 2:22PM ; [facility] Go to the emergency room if condition worsens Last Documented On 5 1:40PM ; [facility] Go to the emergency room if condition worsens Last Documented On 5 1:55PM ; [facility] Go to the emergency room if condition worsens Last Documented On 5 1:31PM ; [facility] Go to the emergency room if condition worsens Last Documented On 5 3:05PM ; [facility] Recommend diet and exercise at least 30 min three times per week Last Documented On 5 3:05PM ; [facility] Watch for signs/symptoms of infection, return to the clinic if seen Last Documented On 5 6:45PM ; [facility] Education and Decision Aids were provided during visit for: Patient education about anti biotics: need to finish even if feeling better Last Documented On 1 6:20PM ; [facility] Patient education RE: navin bueno signals associated with hormonal contraceptive use including abdominal, chest, or leg pain, headaches or visual disturbances Last Documented On 0 11:23AM ; [facility] Patient Education: Daily miguel cium and vitamin D Last Documented On 0 11:23AM ; [facility] control consent review ed and signed Last Documented On 0 11:23AM ; [facility] Patient education about anti biotics: need to finish even if feeling better Last Documented On 0 12:45PM ; [facility] Plan of care discussed with patient. Understanding was verbalized by all and all questions were addressed and answered. Last Documented On 0 3:12PM ; [facility] Inquiry and counseling about contraceptive practices Last Documented On 9 3:42PM ; [facility] Patient education RE: tungeliezer myles signals associated with hormonal contraceptive use including abdominal, chest, or leg pain, headaches or visual disturbances Last Documented On 9 2:07PM ; [facility] Patient Education: Daily miguel cium and vitamin D Last Documented On 9 2:07PM ; [facility] Patient education about anti biotics: need to finish even if feeling better Last Documented On 8 12:15PM ; [facility] Patient counseling : STD pre vention. I discussed with the patient that condoms can reduce the chance of getting an STD but not eliminate it. Increased exposure from multiple sex partners also discussed Last Documented On 8 10:07AM ; [facility] HIV counseling given Last Documented On 8 10:07AM ; [facility] Patient counseling : Use of oral contraceptives discussed in detail including rare occurrence of heart attack, stroke, and leg clots. Patient understands that smoking increases the risk of serious side effects with any steroid-based contraceptive method Last Documented On 8 9:55AM ; [facility] Patient counseling : Use of oral contraceptives discussed in detail including rare occurrence of heart attack, stroke, and leg clots. Patient understands that smoking increases the risk of serious side effects with any steroid-based contraceptive method Last Documented On 8 3:39PM ; [facility] Dietary counseling pertainin g to obesity Last Documented On 8 2:08PM ; [facility] Patient counseling : Use of oral contraceptives discussed in detail including rare occurrence of heart attack, stroke, and leg clots. Patient understands that smoking increases the risk of serious side effects with any steroid-based contraceptive method Last Documented On 7 1:53PM ; [facility] STD screening offered and de clined Last Documented On 7 1:31PM ; [facility] STD screening desired and or dered (cultures only) Last Documented On 6 1:54PM ; [facility] Dietary counseling pertainin g to obesity Last Documented On 5 3:05PM ; [facility] Patient education about anti biotics: need to finish even if feeling better Last Documented On 3 9:14AM ; [facility] Patient education about anti biotics: need to finish even if feeling better Last Documented On 3 2:37PM ; [facility] Assessments Includes: Assessments for all patient encounters Findings Encounter Date Acute pharyngitis COVID SICK VISIT- ES TABLISHED PATIENT with KRYSTAL FUENTES DNP 09/26/2023 Last Documented On 4 7:33PM ; [facility] Acute upper respiratory infection COVID SICK VISIT- ESTABLISHED PATIENT with EZE VICKERS MARK 09/24/2023 Last Documented On 4 12:15PM ; [facility] Acute suppurative otitis med ia of both ears COVID SICK VISIT- ESTABLISHED PATIENT with CANDY MONTANO [facility]-C 07/14/2023 Last Documented On 3 5:30PM ; [facility] COVID-19 infection COVID SICK VISIT- ES TABLISHED PATIENT with PILI CALIXTO [facility]-BC 07/12/2023 Last Documented On 3 1:41PM ; [facility] Acute pharyngitis COVID SICK VISIT- ES TABLISHED PATIENT with PILI SANDOVAL B[facility]TES GRINDER-C 12/22/2022 Last Documented On 3 9:59AM ; [facility] Acute upper respiratory infection COVID SICK VISIT- ESTABLISHED PATIENT with PILI Didi CALIXTO [facility] 07/26/2022 Last Documented On 2 10:28AM ; [facility] Contact with and (Suspected) exposure to COVID-19 COVID SICK VISIT- ESTABLISHED PATIENT with CANDY MONTANO [facility] GR[facility]ER-C 07/12/2022 Last Documented On 2 10:46AM ; [facility] Upper respiratory infection COVID SICK V ISIT- ESTABLISHED PATIENT with CANDY MONTANO B[facility]TES GRINDER-C 07/12/2022 Last Documented On 2 10:46AM ; [facility] Acute pharyngitis COVID SICK VISIT- ES TABLISHED PATIENT with KRYSTAL Marquez GANN B[facility]TES GRINDER-C 05/12/2022 Last Documented On 2 11:31AM ; [facility] Acute serous otitis media COVID SICK VIS IT- ESTABLISHED PATIENT with KRYSTAL Marquez GANN BARYTES GRINDER-C 05/12/2022 Last Documented On 2 11:31AM ; [facility] Assessment of fever COVID SICK VISIT- ES TABLISHED PATIENT with KRYSTAL GANN BARYTES GRINDER-C 05/12/2022 Last Documented On 2 11:31AM ; [facility] Contact with and (Suspected) exposure to COVID-19 COVID SICK VISIT- ESTABLISHED PATIENT with KRSYTAL Marquez GANN B[facility]TES GRINDER-C 05/12/2022 Last Documented On 2 11:31AM ; [facility] Viral infection [B34.9 - Vir al infection, unspecified] COVID SICK VISIT- ESTABLISHED PATIENT with KRYSTAL Marquez GANN BARYTES GRINDER-C 05/12/2022 Last Documented On 2 11:31AM ; [facility] Contusion of right foot with intact skin surface WALK IN PATIENT - ESTABLISHED PT with KRYSTAL Marquez GANN BARYTES GRINDER-C 01/15/2022 Last Documented On 2 1:15PM ; [facility] Acute sinusitis COVID SICK VISIT- ES TABLISHED PATIENT with PILI CALIXTO [facility]-BC 08/22/2021 Last Documented On 1 6:26PM ; [facility] Common migraine (without aur a) without intractable migraine without status migrainosus 1 MONTH CHECK with RODDY DELAROSA PA-C 12/22/2019 Last Documented On 0 11:18AM ; [facility] Nausea 1 MONTH CHECK with RODDY RASMUSSEN INS PA-C 12/22/2019 Last Documented On 0 11:18AM ; [facility] Degree of visual impairment PROBLEM VISIT with Susannah DELAROSA PA-C 11/29/2019 Last Documented On 0 11:11AM ; [facility] Fatigue PROBLEM VISIT with RODDY RASMUSSEN INS PA-C 11/29/2019 Last Documented On 0 11:11AM ; [facility] Migraine headache PROBLEM VISIT with RODDY BRASWELL PA-C 11/29/2019 Last Documented On 0 11:11AM ; [facility] NORMAL FEMALE EXAM [facility] EXAM with RUTHANN Marquez MEGHA 11/17/2019 Last Documented On 0 11:49AM ; [facility] Screen malignant neoplasm cervix [facility]OM[facility] WRITER EXAM with Nara ROMANO RN [facility] 11/17/2019 Last Documented On 0 11:49AM ; [facility] Assessment of fever SICK VISIT with RODDY E MIKE KINS PA-C 10/18/2019 Last Documented On 0 4:02PM ; [facility] Influenza B SICK VISIT with RODDY E DELAROSA PA-C 10/18/2019 Last Documented On 0 4:02PM ; [facility] Acute sinusitis WALK-IN CLINIC SICK VISIT with Susannah CALIXTO [facility]- 10/16/2019 Last Documented On 0 1:07PM ; [facility] Sprain of the left ankle 1 WK CK-UP with RODDY E DELAROSA PA-C 09/24/2019 Last Documented On 0 2:08PM ; [facility] Cyst on the left ovary CHART UPDATE with RUTHANN ROMANO RN [facility] 08/05/2019 Last Documented On 9 12:45PM ; [facility] Contraceptive management PROBLEM VISIT with WILLIE ROMANO RN [facility] 08/03/2019 Last Documented On 9 4:20PM ; [facility] Cyst on the left ovary PROBLEM VISIT with RUTHANN ROMANO RN [facility] 08/03/2019 Last Documented On 9 4:20PM ; [facility] Female pelvic pain PROBLEM VISIT with RUTHANN BEARD RN [facility] 08/03/2019 Last Documented On 9 4:20PM ; [facility] Abdominal pain PROBLEM VISIT with RODDY E JENK INS PA-C 07/30/2019 Last Documented On 9 6:39PM ; [facility] Backache PROBLEM VISIT with RODDY E JENK INS PA-C 07/30/2019 Last Documented On 9 6:39PM ; [facility] Cyst on the left ovary PROBLEM VISIT with RODDY E DELAROSA PA-C 07/30/2019 Last Documented On 9 6:39PM ; [facility] GERD PROBLEM VISIT with RODDY E JENK INS PA-C 07/30/2019 Last Documented On 9 6:39PM ; [facility] SCREENING FOR STD PROBLEM VISIT with RODDY BRASWELL PA-C 07/30/2019 Last Documented On 9 6:39PM ; [facility] Abdominal pain PROBLEM VISIT with RODDY RASMUSSEN INS PA-C 07/14/2019 Last Documented On 9 5:17PM ; [facility] Infectious mononucleosis LAB with LUIZ ASH MD 02/24/2019 Last Documented On 9 12:03PM ; [facility] Constipation CHECK UP with RODDY DELAROSA P A-C 02/16/2019 Last Documented On 9 10:51AM ; [facility] Infectious mononucleosis CHECK UP with RODDY DELAROSA PA-C 02/16/2019 Last Documented On 9 10:51AM ; [facility] Viral infection [B34.9 - Vir al infection, unspecified] WALK-IN CLINIC SICK VISIT with PILI MAYES-BC 02/10/2019 Last Documented On 9 11:16AM ; [facility] Migraine headache [G43.019 - Migraine without aura, intractable, without status migrainosus] [facility] SICK VISIT with KRYSTAL MAYES-C 02/08/2019 Last Documented On 9 11:26AM ; [facility] Viral infection [B34.9 - Vir al infection, unspecified] WALK[facility]IN CLINIC SICK VISIT with KRYSTAL GANN BARYTES GRINDER-C 02/08/2019 Last Documented On 9 11:26AM ; [facility] Checking intrauterine device (IUD) PROBLEM VISIT with KATHY ZHU MD 01/06/2019 Last Documented On 9 12:18PM ; [facility] Dyspareunia PROBLEM VISIT with KATHY Lomeli MD 01/06/2019 Last Documented On 9 12:18PM ; [facility] Urinary tract infection PROBLEM VISIT with KATHY ZHU MD 01/06/2019 Last Documented On 9 12:18PM ; [facility] Acute pharyngitis WALK[facility]IN CLINIC SICK VISIT with PILI CALIXTO [facility]- 11/05/2018 Last Documented On 9 9:17AM ; [facility] Routine adult history and ph ysical (18 - 64 yrs) WALK-IN CLINIC SICK VISIT with CANDACE GUERRERO [facility]- 11/03/2018 Last Documented On 9 3:24PM ; [facility] NORMAL FEMALE EXAM PROMOTION WRITER EXAM with RUTHANN Marquez NP 09/01/2018 Last Documented On 9 2:27PM ; [facility] Vaginitis PROMOTION WRITER EXAM with RUTHANN ROMANO RN W P 09/01/2018 Last Documented On 9 2:27PM ; [facility] Acute sinusitis WALK[facility]IN CL[facility]IC SICK VISIT with Susannah CALIXTO [facility]- 07/01/2018 Last Documented On 8 12:16PM ; [facility] Contraceptive management 1 MONTH CHECK with CAROL PANG MD 03/17/2018 Last Documented On 8 11:13AM ; [facility] Contraceptive management: In sertion of IUD IUD INSERTION with CAROL PANG MD 02/24/2018 Last Documented On 8 2:04PM ; [facility] Menometrorrhagia CONSULTATION with CAROL PANG MD 02/20/2018 Last Documented On 8 10:12AM ; [facility] Concussion with no loss of consciousness PROBLEM VISIT with SHANT STRATTON PA-C 02/10/2018 Last Documented On 8 2:18PM ; [facility] Neck strain PROBLEM VISIT with SHANT KRISHNAN PA-C 02/10/2018 Last Documented On 8 2:18PM ; [facility] Contusion with intact skin s urface of the left anterior leg WALK[facility]IN [facility]IC SICK VISIT with PILI CALIXTO [facility]- 11/24/2017 Last Documented On 8 4:05PM ; [facility] Lumbosacral radiculopathy , improving CH CHRIS UP with SHANT STRATTON PA-C 09/12/2017 Last Documented On 8 2:09PM ; [facility] Morbid obesity CHECK UP with SHANT KIMPRICH PA-C 09/12/2017 Last Documented On 8 2:09PM ; [facility] Gastroenteritis WALK-IN CLINIC SICK VISIT with Susannah CALIXTO [facility] 08/24/2017 Last Documented On 7 1:27PM ; [facility] Lumbosacral radiculopathy , improving CH CHRIS UP with SHANT KIMPRICH PA-C 07/02/2017 Last Documented On 8 3:21PM ; [facility] Routine pelvic exam ANNUAL WELL WOMEN EXAM with CAROL PANG MD 06/18/2017 Last Documented On 7 1:53PM ; [facility] Lumbosacral radiculopathy CHECK UP with SHANT KIMPRICH PA-C 06/18/2017 Last Documented On 7 1:48PM ; [facility] Lumbosacral radiculopathy CHECK UP with SHANT KIMPRICH PA-C 06/04/2017 Last Documented On 7 9:07AM ; [facility] Lumbosacral radiculopathy EMERGENCY ROOM FOLLOW UP with SHANT KIMPRICH PA-C 05/26/2017 Last Documented On 7 10:14PM ; [facility] Pain in lower leg EMERGENCY ROOM FOLLOW UP with SHANT KIMPRICH PA-C 05/26/2017 Last Documented On 7 10:14PM ; [facility] Arthralgia of the right knee/patella/tibia/fibula EMERGENCY ROOM FOLLOW UP with SHANT KIMPRICH PA-C 05/20/2017 Last Documented On 7 10:44AM ; [facility] Pain in lower leg EMERGENCY ROOM FOLLOW UP with SHANT Bud ZIPPRICH PA-C 05/20/2017 Last Documented On 7 10:44AM ; [facility] Dermatitis due to contact wi th poison omid WALK-IN CLINIC SICK VISIT with FELIPA DAVIS BARYTES GRINDER-BC 03/02/2017 Last Documented On 7 5:47PM ; [facility] Lateral epicondylitis of right elbow [facility] SICK VISIT with FELIPA DAVIS [facility] 01/31/2017 Last Documented On 7 6:24PM ; [facility] Urticaria WALK-IN CLINIC SICK VISIT with Susannah CALIXTO [facility] 12/04/2016 Last Documented On 7 10:53AM ; [facility] Common migraine (without aur a) without intractable migraine without status migrainosus WALK[facility]IN CLINIC SICK VISIT with KRYSTAL GANN BARYTES GRINDER-C 11/22/2016 Last Documented On 7 1:22PM ; [facility] Nausea WALK-IN CLINIC SICK VISIT with Susannah COCO Marquez GANN BARYTES GRINDER-C 11/22/2016 Last Documented On 7 1:22PM ; [facility] Acute cystitis PROBLEM VISIT with SHANT Farrell JUDY KRISHNAN PA-C 11/20/2016 Last Documented On 7 3:44PM ; [facility] Fatigue PROBLEM VISIT with SHANT Farrell JUDY KRISHNAN PA-C 11/20/2016 Last Documented On 7 3:44PM ; [facility] Impaired fasting glucose PROBLEM VISIT with WILIAM Farrell VIRAL PA-C 11/20/2016 Last Documented On 7 3:44PM ; [facility] Pustular folliculitis WALK-IN CLINIC SIC K VISIT with FELIPA DAVIS [facility] 10/07/2016 Last Documented On 7 1:10PM ; [facility] Visit for: student physical WALK-IN CLIN IC SICK VISIT with KRYSTAL GANN BARYTES GRINDER-C 09/16/2016 Last Documented On 7 2:10PM ; [facility] A streptococcus: B hem olytic pharyngitis SICK VISIT with PILI CALIXTO [facility] 07/04/2016 Last Documented On 6 4:55PM ; [facility] Routine pelvic exam PROMOTION WRITER EXAM with CAROL PANG MD 06/12/2016 Last Documented On 6 1:55PM ; [facility] Urticaria allergic due to envenomation P ROBLEM VISIT with FELIPA DAVIS [facility] 04/03/2016 Last Documented On 6 5:32PM ; [facility] Infectious gastroenteritis SAME DAY SICK VISIT with FELIPA Ramirez SUSAN BARYTES GRINDER-BC 03/12/2016 Last Documented On 6 4:03PM ; [facility] Nausea SAME DAY SICK VISIT with ABDIRAHMAN EVY Ashley KAHRIG [facility] 03/12/2016 Last Documented On 6 4:03PM ; [facility] Contraceptive management CONSULTATION with CAROL PANG MD 02/23/2016 Last Documented On 6 10:59AM ; [facility] Female pelvic pain CONSULTATION with CAROL GRIJALVA MD 02/23/2016 Last Documented On 6 10:59AM ; [facility] Menometrorrhagia CONSULTATION with CAROL PANG MD 02/23/2016 Last Documented On 6 10:59AM ; [facility] Pharyngitis, Strep SICK VISIT with KRYSTAL TERESA BARYTES GRINDER-C 01/13/2016 Last Documented On 6 2:26PM ; [facility] Otitis externa of the right ear SICK VISIT with PILI CALIXTO [facility] 12/21/2015 Last Documented On 6 3:21PM ; [facility] Viral gastroenteritis SICK VISIT with PILI CALIXTO [facility] 12/21/2015 Last Documented On 6 3:21PM ; [facility] Internal hemorrhoids SICK VISIT with FELIPA A KAHRIG [facility] 11/10/2015 Last Documented On 6 1:59PM ; [facility] Assessment of cough SICK VISIT with MONO BRITO PA-C 10/30/2015 Last Documented On 6 12:44PM ; [facility] Upper respiratory infection SICK VISIT with AIDAN DURBIN PA-C 10/30/2015 Last Documented On 6 12:44PM ; [facility] Bilateral serous nonsuppurat krishna otitis media SICK VISIT with SHANT STRATTON PA-C 10/24/2015 Last Documented On 6 10:33AM ; [facility] Otitis externa SICK VISIT with SHANT RINCON CH PA-C 10/24/2015 Last Documented On 6 10:33AM ; [facility] Common migraine (without aur a) without intractable migraine PROBLEM VISIT with FELIPA A KAHRIG BARYTES GRINDER-BC 07/12/2015 Last Documented On 5 4:11PM ; [facility] Common migraine (without aur a) without intractable migraine without status migrainosus PROBLEM VISIT with FELIPA A KAHRIG BARYTES GRINDER-BC 07/12/2015 Last Documented On 5 4:11PM ; [facility] Discharge diagnosis of PRIMA RY CARE PROVIDER : JENN ZIPPRICH PROBLEM VISIT with FELIPA A KAHRIG BARYTES GRINDER-BC 07/12/2015 Last Documented On 5 4:11PM ; [facility] Mucopurulent conjunctivitis PROBLEM VISIT with C ATHARINE A KAHRIG BARYTES GRINDER-BC 07/12/2015 Last Documented On 5 4:11PM ; [facility] Female pelvic pain GENERAL OFFICE VISIT with RAFAELA THANH D ZIPPRICH PA-C 06/14/2015 Last Documented On 5 1:50PM ; [facility] Recurrent cystitis GENERAL OFFICE VISIT with RAFAELA THANH D ZIPPRICH PA-C 06/14/2015 Last Documented On 5 1:50PM ; [facility] Female pelvic pain NEW PROMOTION WRITER EXAM with CAROL GRIJALVA MD 06/05/2015 Last Documented On 5 9:52AM ; [facility] Female pelvic pain PROBLEM VISIT with SHANT D ZIPPRICH PA-C 05/26/2015 Last Documented On 5 1:59PM ; [facility] Female pelvic pain [Patient Encounter] with WILIAM SSA D ZIPPRICH PA-C 05/19/2015 Last Documented On 5 4:14PM ; [facility] Abdominal pain--RLQ PROBLEM VISIT with FELIPA A KAHRIG BARYTES GRINDER-BC 05/18/2015 Last Documented On 5 7:07PM ; [facility] Discharge diagnosis of PRIMA RY CARE PROVIDER : JENN ZIPPRICH PROBLEM VISIT with FELIPA A KAHRIG BARYTES GRINDER-BC 05/18/2015 Last Documented On 5 7:07PM ; [facility] Flank pain PROBLEM VISIT with FELIPA A Susannah GUEVARA BARYTES GRINDER-BC 05/18/2015 Last Documented On 5 7:07PM ; [facility] Vaginitis PROBLEM VISIT with SHANT Farrell JUDY KRISHNAN PA-C 05/11/2015 Last Documented On 5 2:13PM ; [facility] Allergic rhinitis PROBLEM VISIT with SHANT Blount PIETRO PA-C 05/08/2015 Last Documented On 5 8:41AM ; [facility] Dyspnea/SOB PROBLEM VISIT with SHANT Farrell JUDY KRISHNAN PA-C 05/08/2015 Last Documented On 5 8:41AM ; [facility] Urinary tract infection PROBLEM VISIT with GIULIANA Farrell ZIPPRJUAN PA-C 05/08/2015 Last Documented On 5 8:41AM ; [facility] Discharge diagnosis of PRIMA RY CARE PROVIDER : DR STRATTON SICK VISIT with FELIPA DAVIS [facility] 04/24/2015 Last Documented On 5 1:19PM ; [facility] Upper respiratory infection SICK VISIT with JOSE A DAVIS BARYTES GRINDER-BC 04/24/2015 Last Documented On 5 1:19PM ; [facility] Dysmenorrhea CONSULTATION with SHANT Farrell SHAGUFTA PICHARDO PA-C 03/20/2015 Last Documented On 5 3:33PM ; [facility] Discharge diagnosis of PRIMA RY CARE PROVIDER : DR. SANCHEZ/ VIRAL SICK VISIT with PILI CALIXTO [facility] 03/07/2015 Last Documented On 5 6:50PM ; [facility] Upper respiratory infection SICK VISIT with TAYE CALIXTO BARYTES GRINDER-BC 03/07/2015 Last Documented On 5 6:50PM ; [facility] Urinary tract infection SICK VISIT with PILI CALIXTO BARYTES GRINDER-BC 03/07/2015 Last Documented On 5 6:50PM ; [facility] Lymphadenopathy SICK VISIT with SHANT Farrell MCKENZIE CANCHOLA PA-C 07/07/2013 Last Documented On 3 9:24AM ; [facility] Otitis media of the right ea r , resistant SICK VISIT with SHANT Farrell VIRAL PA-C 07/07/2013 Last Documented On 3 9:24AM ; [facility] Urinary tract infection SICK VISIT with SHANT Farrell VIRAL GRIFFITH 07/07/2013 Last Documented On 3 9:24AM ; [facility] Otitis media of the right ear NEW PATIEN T VISIT with SHANT Farrell VIRAL GRIFFITH 06/09/2013 Last Documented On 3 2:39PM ; [facility] Instructions Includes: Instructions for all patient encounters Instructions to patient Instructions for patient Last Documented On 4 12:08PM ; [facility] Intervention and counseling on cessation of tobacco use Last Documented On 4 8:59AM ; [facility] Watch for signs/symptoms of infection, return to the clinic if seen Last Documented On 3 4:53PM ; [facility] Instructions for patient Last Documented On 3 1:39PM ; [facility] Intervention and counseling on cessation of tobacco use Last Documented On 3 1:20PM ; [facility] Instructions for patient Last Documented On 2 10:24AM ; [facility] Go to the emergency room if condition worsens Last Documented On 1 6:20PM ; [facility] Watch for signs/symptoms of infection Last Documented On 1 6:20PM ; [facility] Watch for signs/symptoms of infection, return to the clinic if seen Last Documented On 1 6:20PM ; [facility] Instructions for patient : B reast Self Exam discussed and technique reviewed Last Documented On 0 11:23AM ; [facility] Use a condom during sexual i ntercourse Last Documented On 0 11:23AM ; [facility] Lose weight Last Documented On 0 11:23AM ; [facility] Instructed to call if excess krishna bleeding or abdominal/pelvic pain Last Documented On 0 11:23AM ; [facility] Recommend diet and exercise at least 30 min three times per week Last Documented On 0 11:23AM ; [facility] Go to the emergency room if condition worsens Last Documented On 0 12:45PM ; [facility] Watch for signs/symptoms of infection Last Documented On 0 12:45PM ; [facility] Watch for signs/symptoms of infection, return to the clinic if seen Last Documented On 0 12:45PM ; [facility] Go to the emergency room if condition worsens Last Documented On 9 9:12AM ; [facility] Watch for signs/symptoms of infection Last Documented On 9 9:12AM ; [facility] Watch for signs/symptoms of infection, return to the clinic if seen Last Documented On 9 9:12AM ; [facility] Instructions for patient : B reast Self Exam discussed and technique reviewed Last Documented On 9 2:07PM ; [facility] Use a condom during sexual i ntercourse Last Documented On 9 2:07PM ; [facility] Instructed to call if excess krishna bleeding or abdominal/pelvic pain Last Documented On 9 2:07PM ; [facility] Recommend diet and exercise at least 30 min three times per week Last Documented On 9 2:07PM ; [facility] Go to the emergency room if condition worsens Last Documented On 8 12:15PM ; [facility] Watch for signs/symptoms of infection Last Documented On 8 12:15PM ; [facility] Watch for signs/symptoms of infection, return to the clinic if seen Last Documented On 8 12:15PM ; [facility] Go to the emergency room if condition worsens Last Documented On 8 2:17PM ; [facility] Go to the emergency room if condition worsens Last Documented On 8 4:03PM ; [facility] Watch for signs/symptoms of infection, return to the clinic if seen Last Documented On 8 4:01PM ; [facility] Recommend diet and exercise at least 30 min three times per week Last Documented On 8 11:51AM ; [facility] Go to the emergency room if condition worsens Last Documented On 7 1:24PM ; [facility] Watch for signs/symptoms of infection, return to the clinic if seen Last Documented On 7 1:24PM ; [facility] Instructions for patient : B reast Self Exam discussed Last Documented On 7 1:31PM ; [facility] Go to the emergency room if condition worsens Last Documented On 7 1:39PM ; [facility] Go to the emergency room if condition worsens Last Documented On 7 8:59AM ; [facility] Go to the emergency room if condition worsens Last Documented On 7 2:28PM ; [facility] Go to the emergency room if condition worsens Last Documented On 7 9:45AM ; [facility] Watch for signs/symptoms of infection, return to the clinic if seen Last Documented On 7 10:52AM ; [facility] Go to the emergency room if condition worsens Last Documented On 6 4:53PM ; [facility] Watch for signs/symptoms of infection Last Documented On 6 4:53PM ; [facility] Watch for signs/symptoms of infection, return to the clinic if seen Last Documented On 6 4:53PM ; [facility] Instructions for patient : B reast Self Exam discussed Last Documented On 6 1:31PM ; [facility] Return to the clinic if cond ition worsens or new symptoms arise Last Documented On 6 2:22PM ; [facility] Go to the emergency room if condition worsens Last Documented On 6 2:22PM ; [facility] Watch for signs/symptoms of infection Last Documented On 6 2:22PM ; [facility] Watch for signs/symptoms of infection, return to the clinic if seen Last Documented On 6 2:22PM ; [facility] Go to the emergency room if condition worsens Last Documented On 5 1:40PM ; [facility] Go to the emergency room if condition worsens Last Documented On 5 1:55PM ; [facility] Go to the emergency room if condition worsens Last Documented On 5 1:31PM ; [facility] Go to the emergency room if condition worsens Last Documented On 5 3:05PM ; [facility] Recommend diet and exercise at least 30 min three times per week Last Documented On 5 3:05PM ; [facility] Watch for signs/symptoms of infection, return to the clinic if seen Last Documented On 5 6:45PM ; [facility] Education and Decision Aids were provided during visit for: Patient education about anti biotics: need to finish even if feeling better Last Documented On 1 6:20PM ; [facility] Patient education RE: navin g signals associated with hormonal contraceptive use including abdominal, chest, or leg pain, headaches or visual disturbances Last Documented On 0 11:23AM ; [facility] Patient Education: Daily miguel cium and vitamin D Last Documented On 0 11:23AM ; [facility] control consent review ed and signed Last Documented On 0 11:23AM ; [facility] Patient education about anti biotics: need to finish even if feeling better Last Documented On 0 12:45PM ; [facility] Plan of care discussed with patient. Understanding was verbalized by all and all questions were addressed and answered. Last Documented On 0 3:12PM ; [facility] Inquiry and counseling about contraceptive practices Last Documented On 9 3:42PM ; [facility] Patient education RE: tungeliezer g signals associated with hormonal contraceptive use including abdominal, chest, or leg pain, headaches or visual disturbances Last Documented On 9 2:07PM ; [facility] Patient Education: Daily miguel cium and vitamin D Last Documented On 9 2:07PM ; [facility] Patient education about anti biotics: need to finish even if feeling better Last Documented On 8 12:15PM ; [facility] Patient counseling : STD pre vention. I discussed with the patient that condoms can reduce the chance of getting an STD but not eliminate it. Increased exposure from multiple sex partners also discussed Last Documented On 8 10:07AM ; [facility] HIV counseling given Last Documented On 8 10:07AM ; [facility] Patient counseling : Use of oral contraceptives discussed in detail including rare occurrence of heart attack, stroke, and leg clots. Patient understands that smoking increases the risk of serious side effects with any steroid-based contraceptive method Last Documented On 8 9:55AM ; [facility] Patient counseling : Use of oral contraceptives discussed in detail including rare occurrence of heart attack, stroke, and leg clots. Patient understands that smoking increases the risk of serious side effects with any steroid-based contraceptive method Last Documented On 8 3:39PM ; [facility] Dietary counseling pertainin g to obesity Last Documented On 8 2:08PM ; [facility] Patient counseling : Use of oral contraceptives discussed in detail including rare occurrence of heart attack, stroke, and leg clots. Patient understands that smoking increases the risk of serious side effects with any steroid-based contraceptive method Last Documented On 7 1:53PM ; [facility] STD screening offered and de clined Last Documented On 7 1:31PM ; [facility] STD screening desired and or dered (cultures only) Last Documented On 6 1:54PM ; [facility] Dietary counseling pertainin g to obesity Last Documented On 5 3:05PM ; [facility] Patient education about anti biotics: need to finish even if feeling better Last Documented On 3 9:14AM ; [facility] Patient education about anti biotics: need to finish even if feeling better Last Documented On 3 2:37PM ; [facility] Medical Equipment - Implanted Devices Includes: Current and historical Devices No Medical Equipment Recorded Medications Includes: Current and historical Medications Current Medications (continue as prescribed) Lisinopril 10 MG Oral Tablet 08/04/2023 Provider: BRAVO DILL NP Diagnosis: Last Documented On 09/26/2023 7:15PM By Mireya Carrillo MA ; [facility] Nexplanon 68 MG Subcutaneous Implant 07/14/2023 Prov ider: Diagnosis: Last Documented On 07/14/2023 4:40PM By Mireya Carrillo MA ; [facility] Vitamin D (Ergocalciferol) 01052 UNIT Oral Capsule Provider: Diagnosis: once weekly Last Documented On 05/24/202 2 12:03PM By BYRON SCOTT ; [facility] GoodSense Vitamins 28-0.8 MG Oral Tablet 12/24 Provider: Diagnosis: PRN Last Documented On 2 11:22AM By BYRON SCOTT ; [facility] EQ Ibuprofen 200 MG Oral Tablet 09/17/2019 Provider: Diagnosis: 3 tablets Q8H Last Documented On 0 3:05PM By Pili JAYP-C ; [facility] Tylenol 325MG Oral Tablet 02/08/2019 Provider: Diagnosis: PRN-fever & pain Last Documented On 9 10:29AM By BYRON SCOTT ; [facility] Singulair 10MG Oral Tablet 10/14/2017 Provider: SHANT Samaniego Diagnosis: Allergic rhiniti s due to pollen One tablet daily Last Documented On 8 2:46PM By SHANT STRATTON PA-C ; [facility] ProAir HFA 108 (90 Base)MCG/ ACT Inhalation Aerosol Solution 08/24/2017 Provider: PILI GARZA BARYTES GRINDER-BC Diagnosis: Wheezing use as directed 2 puffs every 4-6 hours as neede d Last Documented On 7 1:23PM By PILI CALIXTO [facility]- ; [facility] Past Medications on file Fluconazole 150 MG Oral Tablet 09/15/2023 - 09/26/2023 Provider: Diagnosis: Last Documented On 09/26/2023 7:16PM By Mireya Carrillo MA ; [facility] Azithromycin 250 MG Oral Tablet 07/14/2023 - 07/19/2023 Provider: CANDY MAYES-C Diagnosis: Acute suppr otit is media w/o spon rupt ear drum, bilateral Take two tablets on day 1. T hen, take one tablet on day 2-5 Last Documented On 07/14/2023 5:02PM By Candy MAYES ; [facility] Azithromycin 250 MG Oral Tablet 05/12/2022 - 07/12/2023 Provider: KRYSTAL GANN BARYTES GRINDER-C Diagnosis: Acute serous israel tis media, right ear as directed take 2 tab po qd for 1 day then take 1 tab po qd for 4 days Last Documented On 3 1:19PM By Flori SCOTT ; [facility] Zithromax Z-Kurt 250 MG Oral Tablet 08/22/2021 - 01/15/2022 Provider: PILI MAYES-BC Diagnosis: Acute maxillary sinusitis, unspecified as directed Last Documented On 2 11:20AM By BYRON PENDLETONA ; [facility] Zofran 8 MG Oral Tablet 12/20/2019 - 12/25/2019 Provid er: RODDY DELAROSA PA-C Diagnosis: 1 tab po q 8 hrs PRN. Last Documented On 0 9:47AM By RODDY DELAROSA PA-C ; [facility] Topamax 50 MG Oral Tablet 12/17/2019 - 02/15/2020 Prov ider: RODDY DELAROSA PA-C Diagnosis: One tablet twice a day--this is an increase. Last Documented On 0 9:49AM By RODDY DELAROSA PA-C ; [facility] Cyclobenzaprine HCl 10 MG Oral Tablet 12/03/2019 - 12/08/2019 Provider: LUIZ JAIMES MD Diagnosis: One tablet daily muscle relaxer Last Documented On 0 11:50AM By LUIZ ROLON MD ; [facility] Topamax 25 MG Oral Tablet 11/29/2019 - 12/22/2019 Provider: RODDY DELAROSA PA-C Diagnosis: Migraine w/o aur a, not intractable, w/o status migrainosus 1 tab PO daily x 1 wk then i ncrease to 1 tab BID. Use generic. Last Documented On 0 9:48AM By RODDY DELAROSA PA-C ; [facility] Aviane 0.1-20 MG-MCG Oral Tablet 11/17/2019 - 02/09/2020 Provider: RUTHANN ROMANO RN [facility] Diagnosis: Encounter for in itial prescription of contraceptive pills One tablet daily TAKE DIR ECTED START Friday AFTER NEXT MENSES back up method pack one Last Documented On 0 11:58AM By RUTHANN BLANCO-BC ; [facility] Benzonatate 200 MG Oral Capsule 10/18/2019 - 11/29/2019 Provider: RODDY DELAROSA PA-C Diagnosis: Fever, unspecifi ed One tablet three times a day One tablet 2-3 times a day PRN cough Last Documented On 11/29/2019 9:15AM By Dian Roberto CMA ; [facility] Xofluza 2 x 40 MG Oral Tablet Therapy Pack 10/18/2019 - 11/29/2019 Provider: RODDY DELAROSA PA-C Diagnosis: Flu due to oth i dent influenza virus w oth resp manifest 2 tabs PO qd x 1; has copay card Last Documented On 11/29/2019 9:16AM By Dian Roberto CMA ; [facility] Azithromycin 500 MG Oral Tablet 10/16/2019 - 11/29/2019 Provider: PILI CALIXTO [facility]- Diagnosis: Acute maxillary sinusitis, unspecified One tablet daily Last Documented On 11/29/2019 9:15AM By Dian Roberto CMA ; [facility] Ketorolac Tromethamine 10 MG Oral Tablet 08/03/2019 - 09/17/2019 Provider: Diagnosis: Last Documented On 0 2:24PM By PAYAL SCOTT ; [facility] Naproxen 500 MG Oral Tablet 08/03/2019 - 09/17/2019 Provider: RUTHANN ROMANO RN MEGHA Diagnosis: Pelvic and perin eal pain One tablet twice a day USE A S DIRECTED W/FOOD DON'T EXCEED 2 IN 24 HOURS Last Documented On 0 2:24PM By PAYAL SCOTT ; [facility] Condoms Miscellaneous 08/03/2019 - 09/17/2019 Provider: RUTHANN ROMANO RN MEGHA Diagnosis: Encounter for ot h general cnsl and advice on contraception as directed Last Documented On 0 2:23PM By PAYAL SCOTT ; [facility] Levaquin 250 MG Oral Tablet 08/02/2019 - 09/17/2019 Pr ovider: RODDY DELAROSA PA-C Diagnosis: ONE TAB BID Last Documented On 0 2:23PM By PAYAL SCOTT ; [facility] Zofran 8 MG Oral Tablet 07/16/2019 - 09/17/2019 Provid er: RODDY DELAROSA PA-C Diagnosis: 1 TAB BID PRN Last Documented On 0 2:24PM By PAYAL SCOTT ; [facility] traMADol HCl 50 MG Oral Tablet 07/16/2019 - 09/17/2019 Provider: RODDY DELAROSA PA-C Diagnosis: 1 tab BID-TID PRN pain. Last Documented On 0 2:24PM By PAYAL SCOTT ; [facility] raNITIdine HCl 150 MG Oral Capsule 07/14/2019 - 09/17/2019 Provider: RODDY DELAROSA PA-C Diagnosis: Unspecified abdo koki pain 1 capsule daily Last Documented On 0 2:24PM By PAYAL SCOTT ; [facility] Azithromycin 500MG Oral Tablet 02/10/2019 - 02/16/2019 Provider: PILI CALIXTO BARYTES GRINDER-BC Diagnosis: Acute sinusitis, unspecified One tablet daily Last Documented On 9 10:17AM By DIAMOND SCOTT ; [facility] Cefuroxime Axetil 500MG Oral Tablet 02/08/2019 - 02/16 Provider: Diagnosis: Last Documented On 9 10:18AM By DIAMOND SCOTT ; [facility] Cyclobenzaprine HCl 5MG Oral Tablet 02/08/2019 - 07/14/2019 Provider: KRYSTAL GANN BARYTES GRINDER-C Diagnosis: Migraine w/o aur a, intractable, without status migrainosus One tablet three times a day prn Last Documented On 9 1:09PM By PAYAL SCOTT ; [facility] Bactrim DS 800-160MG Oral Tablet 01/06/2019 - 02/08/2019 Provider: KATHY Farrell Diagnosis: Urinary tract infection, site not specified One tablet twice a day Last Documented On 9 10:28AM By BYRON SCOTT ; [facility] Azithromycin 500MG Oral Tablet 09/01/2018 - 07/14/2019 Provider: RUTHANN ROMANO RN [facility] BC Diagnosis: Acute vaginitis as directed 2 TABLETS NOW Last Documented On 9 1:04PM By PAYAL SCOTT ; [facility] Azithromycin 500MG Oral Tablet 09/01/2018 - 07/14/2019 Provider: RUTHANN ROMANO RN MEGHA Diagnosis: Acute vaginitis as directed 2 TABLETS NOW Last Documented On 9 1:04PM By PAYAL SCOTT ; [facility] Azithromycin 500MG Oral Tablet 07/01/2018 - 09/01/2018 Provider: PILI CALIXTO BARYTES GRINDER- Diagnosis: Cough One tablet daily Last Documented On 9 2:00PM By SWETA SCOTT ; [facility] Ventolin HFA 108 (90 Base)MCG/ACT Inhalation Aerosol, solution 07/01/2018 - 09/01/2018 Provider: PILI CALIXTO BARYTES GRINDER- Diagnosis: Wheezing as directed Last Documented On 9 2:00PM By SWETA SCOTT ; [facility] Medrol 4MG Oral Tablet Therapy Pack 07/01/2018 - 09/01/2018 Provider: PILI CALIXTO [facility]- Diagnosis: Wheezing as directed Last Documented On 9 2:00PM By SWETA SCOTT ; [facility] Kyleena 19.5MG Intrauterine Intrauterine device 02/24/2018 - 09/01/2019 Provider: Diagnosis: insertion 02/24/2018 Last Documented On 0 9:44AM By RUTHANN ROMANO MEGHA- ; [facility] Cyclobenzaprine HCl 10MG Oral Tablet 02/10/2018 - 07/14/2019 Provider: SHANT STRATTON PA-C Diagnosis: Strain of muscle , fascia and tendon at neck level, init 1 po q 8 hrs prn Last Documented On 9 1:09PM By PAYAL SCOTT ; [facility] Quasense 0.15-0.03MG Oral Tablet 10/14/2017 - 02/11/20 18 Provider: Diagnosis: Last Documented On 02/10/2018 1:45PM By DEBBIE SCOTT ; [facility] Levonorgest-Eth Estrad 91-Day 0.15-0.03MG Oral Tablet 10/14/2017 - 02/24/2018 Provider: CAROL PANG MD Diagnosis: Encounter for surveillance of contraceptive pills One tablet daily Last Documented On 02/24/2018 1:42PM By Sindi Hinton MA ; [facility] Mobic 15MG Oral Tablet 09/22/2017 - 07/14/2019 Provide r: SHANT STRATTON PA-C Diagnosis: One tablet daily Last Documented On 9 1:09PM By PAYAL SCOTT ; [facility] Cyclobenzaprine HCl 10MG Ora l Tablet 09/10/2017 - 07/14/2019 Provider: CANDACE FIERRO [facility]- Diagnosis: TAKE 1 TABLET BY MOUTH EVERY 8 HOURS NEEDED Last Documented On 9 1:08PM By PAYAL SCOTT ; [facility] Zithromax Z-Kurt 250MG Oral Tablet 08/27/2017 - 09/12/2017 Provider: PILI CALIXTO BARYTES GRINDER-BC Diagnosis: Cough as directed Last Documented On 09/12/2017 10:06AM By DEBBIE SCOTT ; [facility] Cyclobenzaprine HCl 10MG Ora l Tablet 07/08/2017 - 09/10/2017 Provider: CANDACE FIERRO [facility]- Diagnosis: TAKE 1 TABLET BY MOUTH EVERY 8 HOURS NEEDED Last Documented On 8 1:47PM By CANDACE GUERRERO [facility] ; [facility] Mobic 15MG Oral Tablet 07/02/2017 - 09/22/2017 Provider: SHANT RINCON CH, PA-C Diagnosis: Radiculopathy, lumbosacral region One tablet daily Last Documented On 8 9:16PM By SHANT STRATTON PA-C ; [facility] Cyclobenzaprine HCl 10MG Ora l Tablet 06/18/2017 - 07/08/2017 Provider: SHANT RINCON CH, PA-C Diagnosis: TAKE 1 TABLET BY MOUTH EVERY 8 HOURS NEEDED Last Documented On 7 1:09PM By CANDACE GUERRERO [facility] ; [facility] Levonorgest-Eth Estrad 91-Day 0.15-0.03MG Oral Tablet 06/18/2017 - 10/14/2017 Provider: CAROL PANG MD 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 One tablet daily starting Friday08/03/17 please Last Documented On 10/14/2017 3:37PM By CAROL PANG MD ; [facility] Naprosyn 500MG Oral Tablet 06/18/2017 - 07/14/2019 Provider: SHANT STRATTON PA-C Diagnosis: Radiculopathy, lumbosacral region One tablet twice a day Last Documented On 9 1:09PM By PAYAL SCOTT ; [facility] Cyclobenzaprine HCl 10MG Oral Tablet 06/18/2017 - 08/25 Provider: Diagnosis: Last Documented On 09/12/2017 10:06AM By DEBBIE SCOTT ; [facility] MedroxyPROGESTERone Acetate 150MG/ML Intramuscular Suspension 06/18/2017 - 09/12/2017 Provider: Diagnosis: Last Documented On 09/12/2017 10:13AM By DEBBIE SCOTT ; [facility] Cyclobenzaprine HCl 10MG Oral Tablet 06/04/2017 - 06/18/2017 Provider: SHANT STRATTON PA-C Diagnosis: Radiculopathy, lumbosacral region 1 po q 8 hrs prn Last Documented On 7 4:02PM By SHANT STRATTON PA-C ; [facility] Mobic 15MG Oral Tablet 06/04/2017 - 07/14/2019 Provider: SHANT RINCON CH, PA-C Diagnosis: Radiculopathy, lumbosacral region One tablet daily Last Documented On 9 1:06PM By PAYAL SCOTT ; [facility] PredniSONE 20MG Oral Tablet 05/20/2017 - 07/14/2019 Provider: SHANT RINCON CH, PA-C Diagnosis: Pain in right kn ee One tablet twice a day Last Documented On 9 1:06PM By PAYAL SCOTT ; [facility] Triamcinolone Acetonide 0.5% External Ointment 03/02/2017 - 05/20/2017 Provider: FELIPA DAVIS BARYTES GRINDER-BC Diagnosis: Unspecified cont act dermatitis due to plants, except food Apply twice a day Last Documented On 05/20/2017 9:17AM By DEBBIE SCOTT ; [facility] PredniSONE 20MG Oral Tablet 03/02/2017 - 05/20/2017 Provider: FELIPA DAVIS BARYTES GRINDER-BC Diagnosis: Unspecified cont act dermatitis due to plants, except food 1 tab three times daily for 3 days, then 1 tab twice daily for 2 days, then 1 tab once daily for 2 days Last Documented On 05/20/2017 9:17AM By DEBBIE SCOTT ; [facility] Vistaril 25MG Oral Capsule 12/04/2016 - 05/20/2017 Provider: PILI CALIXTO BARYTES GRINDER-BC Diagnosis: Urticaria, unspe cified 1 every 6 hours as needed Last Documented On 05/20/2017 9:18AM By DEBBIE SCOTT ; [facility] PredniSONE 20MG Oral Tablet 12/04/2016 - 01/31/2017 Provider: PILI CALIXTO BARYTES GRINDER-BC Diagnosis: Urticaria, unspe cified One tablet twice a day Last Documented On 7 5:59PM By FLORI SCOTT ; [facility] Tylenol with Codeine #3 300-30MG Oral Tablet 7 - 05/20/2017 Provider: Diagnosis: Last Documented On 05/20/2017 9:18AM By DEBBIE SCOTT ; [facility] Bactrim DS 800-160MG Oral Tablet 11/26/2016 - 07/14/2019 Provider: SHANT STRATTON PA-C Diagnosis: Other cystitis without hematuria One tablet twice a day Last Documented On 9 1:05PM By PAYAL SCOTT ; [facility] Fioricet/Codeine 95-487-73-30MG Oral Capsule, conventional 11/22/2016 - 11/26/2016 Provider: KRYSTAL GANN BARYTES GRINDER-C Diagnosis: Migraine w/o aur a, not intractable, w/o status migrainosus 1 every 6 hours as needed Last Documented On 7 3:17PM By SWETA SCOTT ; [facility] Ondansetron 4MG Oral Tablet Dispersible 11/22/2016 - 01/31/2017 Provider: KRYSTAL [place] BARYTES GRINDER-C Diagnosis: Nausea 1 every 6 hours as needed Last Documented On 7 5:59PM By FLORI SCOTT ; [facility] Clindamycin Phosphate 1% External Lotion 10/07/2016 - 11/20/2016 Provider: FELIPA DAVIS [facility] Diagnosis: Other specified follicular disorders apply twice daily to affecte d areas x 2 months Last Documented On 11/20/2016 3:22PM By DEBBIE SCOTT ; [facility] Singulair 10 MG Tablet 09/02/2016 - 10/14/2017 Provider: SHANT STRATTON PA-C Diagnosis: Allergic rhiniti s due to pollen One tablet daily Last Documented On 8 2:44PM By SHANT STRATTON PA-C ; [facility] Azithromycin 250 MG Tablet 07/04/2016 - 09/16/2016 Provider: PILI CALIXTO [facility] Diagnosis: Streptococcal pharyngitis as directed Last Documented On 7 1:38PM By VENECIA SCOTT ; [facility] MedroxyPROGESTERone Acetate 150 MG/ML Suspension 06/12/2016 - 07/14/2019 Provider: CAROL PANG MD Diagnosis: as directed Last Documented On 9 1:08PM By PAYAL SCOTT ; [facility] MedroxyPROGESTERone Acetate 150 MG/ML Suspension 05/30/2016 - 06/12/2016 Provider: Diagnosis: Last Documented On 06/12/2016 1:49PM By CAROL PANG MD ; [facility] Triamcinolone Acetonide 0.5 % Ointment 04/03/2016 - 06/12/2016 Provider: FELIPA DAVIS [facility] Diagnosis: Allergic urticar ia Apply twice a day to rash on left leg Last Documented On 06/12/2016 1:25PM By JAI FUNG ; [facility] Zofran ODT 4 MG Tablet Dispersible 03/12/2016 - 09/16/2016 Provider: FELIPA DAVIS [facility] Diagnosis: Infectious gastroenteritis and colitis, unspecified 1 every 6 hours as needed for nausea Last Documented On 7 1:38PM By VENECIA SCOTT ; [facility] Depo-Provera 150 MG/ML Suspension 02/23/2016 - 019 Provider: CAROL PANG MD Diagnosis: as directed Last Documented On 9 1:08PM By PAYAL SCOTT ; [facility] Singulair 5 MG Tablet, chewable 02/23/2016 - 7 Provider: Diagnosis: Last Documented On 11/20/2016 3:22PM By DEBBIE SCOTT ; [facility] Estradiol 1 MG Tablet 02/23/2016 - 07/14/2019 Provider: CAROL PANG MD Diagnosis: Excessive and fr equent menstruation with irregular cycle One tablet daily Last Documented On 9 1:09PM By PAYAL SCOTT ; [facility] Azithromycin 250 MG Tablet 01/13/2016 - 02/23/2016 Provider: KRYSTAL MAYES-C Diagnosis: Streptococcal pharyngitis take 2 tablets po qd for 1 d ay then take 1 tab po qd for 4 days Last Documented On 6 10:24AM By TONI SCOTT ; [facility] Ofloxacin 0.3 % Solution 12/21/2015 - 02/23/2016 Provider: KRYSTAL POWELL Diagnosis: Unspecified otit is externa, right ear 10 drops in left ear once daily for 7 days Last Documented On 6 10:24AM By TONI SCOTT ; [facility] Hydrocortisone Acetate 25 MG Suppository 11/10/2015 - 12/21/2015 Provider: FELIPA DAVIS BARYTES GRINDER-BC Diagnosis: Other hemorrhoid s once or twice daily, insert via rectum Last Documented On 12/21/2015 2:17PM By XAVI SCOTT ; [facility] Medrol (Kurt) 4 MG Tablet 10/30/2015 - 07/14/2019 Provider: MONO DURBIN PA-C Diagnosis: Acute upper respiratory infection, unspecified as directed Last Documented On 9 1:05PM By PAYAL SCOTT ; [facility] Zithromax Z-Kurt 250 MG Tablet 10/30/2015 - 07/14/2019 Provider: MONO DURBIN PA-C Diagnosis: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
--- OUTSIDE RECORDS SUMMARY | 2025-05-30 01:02 | XMS_ITS | Clinical Summary ---
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 Will send off throat culture and call patient with results once received. 1. Increase water intake. 2. Get plenty of rest. 3. Take OTC decongestant or antihistamine to help with symptoms. 4. May use salt water gargles, OTC Chloraseptic spray, or throat lozenges to help with symptoms. 5. Patient voiced understanding to the teaching. - Last Documented On 09/26/2023 7:33PM ; [facility] Assessments Includes: Assessments from this encounter Findings - [J02.9 - Acute pharyngitis, unspecified] Acute pharyngitis - Last Documented On 09/26/2023 7:33PM ; [facility] Medical Equipment - Implanted Devices Includes: Current Devices No Medical Equipment Recorded Medications Includes: Medications discussed during this encounter and other current Medications Discontinued / Stopped on this date on 09/15/2023 Fluconazole 150 MG Oral Tablet Provider: Diagnosis: Last Documented On 09/26/2023 7:16PM By Mireya Carrillo MA ; [facility] Current Medications (continue as prescribed) Lisinopril 10 MG Oral Tablet 08/04/2023 Provider: BRAVO DILL NP Diagnosis: Last Documented On 09/26/2023 7:15PM By Mireya Carrillo MA ; [facility] Nexplanon 68 MG Subcutaneous Implant 07/14/2023 Prov ider: Diagnosis: Last Documented On 07/14/2023 4:40PM By Mireya Carrillo MA ; [facility] Vitamin D (Ergocalciferol) 04055 UNIT Oral Capsule Provider: Diagnosis: once weekly Last Documented On 2 12:03PM By BYRON SCOTT ; [facility] GoodSense Vitamins 28-0.8 MG Oral Tablet 12/24 Provider: Diagnosis: PRN Last Documented On 2 11:22AM By BYRON SCOTT ; [facility] EQ Ibuprofen 200 MG Oral Tablet 09/17/2019 Provider: Diagnosis: 3 tablets Q8H Last Documented On 0 3:05PM By Pili ANDERSONC ; [facility] Tylenol 325MG Oral Tablet 02/08/2019 Provider: Diagnosis: PRN-fever & pain Last Documented On 9 10:29AM By BYRON SOCTT ; [facility] Singulair 10MG Oral Tablet 10/14/2017 Provider: SHANT Samaniego Diagnosis: Allergic rhiniti s due to pollen One tablet daily Last Documented On 8 2:46PM By SHANT STRATTON PA-C ; [facility] ProAir HFA 108 (90 Base)MCG/ ACT Inhalation Aerosol Solution 08/24/2017 Provider: PILI GARZA [facility] Diagnosis: Wheezing use as directed 2 puffs every 4-6 hours as neede d Last Documented On 7 1:23PM By PILI CALIXTO [facility] ; [facility] Medications Administered Includes: Administered Medications from this encounter No Administered Medications Recorded Vital Signs Includes: Vital Signs from this encounter Vital Name 09/26/2023 07:16P Blood Pressure Sitting L 100/76 BP Cuff Size Large Pulse Rate-Sitting (bpm) 78 Respiration Rate (breaths/min) 20 Temp-Oral (F) 98.3 Height (in) 62 Weight (lb) 262 Body Mass Index 47.9 Body Surface Area 2.1 Oxygen Saturation (%) 99 Last Documented: On 09/26/2023 7:17PM ; [facility] Results Includes: Results discussed during this encounter No Results Recorded For Specified Dates History of Present Illness Includes: History of Present Illness from this encounter HPI JESSICA SPANGLER is a 27 year old female. - Allergy list reviewed - Medication list reviewed - Not feeling fine - Feeling tired - No fever - No chills - No sinus pain - No neck pain - No neck stiffness - No swollen glands in the neck - No eye symptoms - Sore throat constantly - Triggered by swallowing - No ear symptoms - No nasal discharge - No nasal passage blockage (stuffiness) - No hoarseness - No excessive drooling - No chest pain or discomfort - No dyspnea - No cough - Decreased appetite - No heartburn - No nausea - No abdominal pain Jessica presents to the clinic with the above reported symptoms that have been going on for the past 4 days. She denies any fever, chills, or other associated symptoms. Patient has been exposed to COVID-19 but has been taking home COVID tests and they have all been negative. Social History Description Last Updated Tobacco non-user 09/26/2023 Last Documented On 4 7:33PM ; [facility] Smoking Status Unknown Procedures and Surgical History Includes: Procedures from this encounter Procedures Code Diagnosis Performing Provider Service L ocation Service Date Pt to use prescription as ordered. Purpose of and use of medication discussed.~ Last Documented On 4 7:30PM ; [facility] Pt to use OTC fever/pain product as need ed per product instruction.~ Last Documented On 4 7:30PM ; [facility] use of tobacco assessment performed 1000F Last Documented On 4 7:16PM ; [facility] review of medications documented 1160F Last Documented On 4 7:30PM ; [facility] Clinical summary provided to patient Last Documented On 4 7:30PM ; [facility] Medical History Includes: Medical History addressed during this encounter No Medical History Recorded Family History Includes: Family History addressed during this encounter No Family History Recorded Review of Systems Includes: Review of Systems from this encounter Systemic: Feeling poorly (malaise). No fever and no chills. Head: No headache and no sinus pain. Neck: No neck pain, no neck stiffness, and no lump or swelling in the neck. Eyes: No itching of the eyes and no eye pain. Otolaryngeal: No earache and no nasal discharge. Hoarseness and sore throat. Cardiovascular: No chest pain or discomfort. Pulmonary: No dyspnea and no cough. Gastrointestinal: No dysphagia, no nausea, no vomiting, no abdominal pain, and no diarrhea. Skin: No rash. Mental Status Includes: Mental [...] Active Last Documented On 4 7:16PM ; [facility] Penicillins Allergy Skin Rashes / Er uption of skin, Shortness of Breath / Dyspnea, keflex is ok 06/09/2013 Active Last Documented On 4 7:16PM ; [facility] Macrobid Allergy Skin Rashes / Eruption of skin, Nausea 0 03/07/2015 Active Last Documented On 4 7:16PM ; [facility] Doxycycline Hyclate Allergy Skin Rashes / Eruption of skin, Hives / Urticaria 07/08/2013 Active Last Documented On 4 7:16PM ; [facility] Amoxicillin Allergy Skin Rashes / Er uption of skin, Shortness of Breath / Dyspnea, does have epi pen 03/07/2015 Acti ve Last Documented On 4 7:16PM ; [facility] Encounters Encounter Provider Location Date Check-In Time Check-Out Time Diagnosis COVID SICK VISIT- ESTABLISHED PATIENT TONYA FUENTES DNP [facility] 09/26/19 24 6:54PM 7:30PM Pharyngitis Acute Insurance Includes: Active Insurance Policies Plan Name Member ID Group # Subscriber Relationship Effect krishna Dates 1 - [facility] [id number] GARRY SPANGLER Yumiko horace 2 - MEDICAID [facility] [id number] JESSICA SPANGLER Self Clinical Notes Includes: Clinical Notes from this encounter * Progress note Date Encounter Last Documented by 09/26/2023 COVID SICK VISIT- ESTABLISHED PA SAMUELNT Last documented on 09/26/2023; 7:33 PM, TONYA FUENTES DNP; [facility] Chief Complaint The Chief Complaint is: PT C/O SORE THROAT. History of Present Illness JESSICA SPANGLER is a 27 year old female. - Allergy list reviewed - Medication list reviewed - Not feeling fine - Feeling tired - No fever - No chills - No sinus pain - No neck pain - No neck stiffness - No swollen glands in the neck - No eye symptoms - Sore throat constantly - Triggered by swallowing - No ear symptoms - No nasal discharge - No nasal passage blockage (stuffiness) - No hoarseness - No excessive drooling - No chest pain or discomfort - No dyspnea - No cough - Decreased appetite - No heartburn - No nausea - No abdominal pain Jessica presents to the clinic with the above reported symptoms that have been going on for the past 4 days. She denies any fever, chills, or other associated symptoms. Patient has been exposed to COVID-19 but has been taking home COVID tests and they have all been negative. Social History Tobacco use: Tobacco non-user. Review Of Systems Systemic: Feeling poorly (malaise). No fever and no chills. Head: No headache and no sinus pain. Neck: No neck pain, no neck stiffness, and no lump or swelling in the neck. Eyes: No itching of the eyes and no eye pain. Otolaryngeal: No earache and no nasal discharge. Hoarseness and sore throat. Cardiovascular: No chest pain or discomfort. Pulmonary: No dyspnea and no cough. Gastrointestinal: No dysphagia, no nausea, no vomiting, no abdominal pain, and no diarrhea. Skin: No rash. Physical Findings - Vitals taken 09/26/2023 07:16 pm BP-Sitting L 100/76 mmHg BP Cuff Size Large Pulse Rate-Sitting 78 bpm Respiration Rate 20 per min Temp-Oral 98.3 F Height 62 in Weight 262 lbs Body Mass Index 47.9 kg/m2 Body Surface Area 2.1 m2 Oxygen Saturation 99 % General Appearance: - Awake. - Alert. - Well nourished. Eyes: General/bilateral: Pupils: - PERRLA. Ears: Right Ear: Tympanic Membrane: - Normal. - Not erythematous. Left Ear: Tympanic Membrane: - Normal. - Not erythematous. Nose: General/bilateral: Discharge: - No nasal discharge. Sinus Tenderness: - No sinus tenderness. Pharynx: Oropharynx: - Tonsils showed abnormalities. - Tonsils were enlarged. - Inflamed. - Tonsils showed no exudate. Lymph Nodes: - No adenopathy. - No tender lymph nodes. Lungs: - Clear to auscultation. Cardiovascular: Heart Rate And Rhythm: - Normal. Abdomen: Auscultation: - Bowel sounds were normal. Skin: - Normal. - Texture was normal. - Color and pigmentation were normal. - Mucous membranes were not dry. Assessment - [J02.9 - Acute pharyngitis, unspecified] Acute pharyngitis Therapy - Clinical summary provided to patient. Pt to use prescription as ordered. Purpose of and use of medication discussed. . Pt to use OTC fever/pain product as needed per product instruction. . Plan StartCited - Acute pharyngitis, unspecified Lab: CULTURE THROAT In office procedures/*Clia Waived Labs: Rapid Strep Test EndCited - Return to the clinic if condition worsens or new symptoms arise Strep test was negative at today's visit. Will send off throat culture and call patient with results once received. 1. Increase water intake. 2. Get plenty of rest. 3. Take OTC decongestant or antihistamine to help with symptoms. 4. May use salt water gargles, OTC Chloraseptic spray, or throat lozenges to help with symptoms. 5. Patient voiced understanding to the teaching. Practice Management Use of tobacco assessment performed Review of medications documented.
--- NOTE | 2025-05-30 07:30 | P.HP_ITS ---
H&P: HPI History of Present Illness Date/Time: 05/30/25 07:30 Chief Complaint: left ovarian cyst Narrative: Patient is a 29 year old female who presents for left ovarian cystectomy. 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 Over the past months, her symptoms have returned including pelvic pain and pressure. Pelvic US demonstrated a 5x2cm left ovarian cyst, new from prior imaging. Risks and benefits of expectant management vs surgical management were discussed with the patient who desires to proceed with surgical management. She would also like her Nexplanon implant removed today as she desires to conceive. She denies nausea, vomiting, abdominal pain, dysuria, fevers or chills. Review of Systems Review of Systems: All systems reviewed & are unremarkable except as noted in HPI and below PMFSH Past Medical History Medical History Asthma GERD (gastroesophageal reflux disease) Ovarian cyst Morbid obesity Surgical History Surgical History Hx of cholecystectomy H/O eye surgery Family History Family History Father Colon cancer Diabetes mellitus Heart disease Cirrhosis Patient's father is , Onset Age: 58 Cerebrovascular accident Grandparent Ovarian cancer Diabetes mellitus Heart disease Hypertension Cerebrovascular accident Sibling Yepez's palsy Social History Social History Social History: never smoker Smoking status: Never smoker Alcohol intake: never Substance use: never Lack of Transportation: No Lack of Food: Never True Current Housing: I Have Housing Concerned About Future Housing: No Difficulty Paying Gas/Electric Bills: No Difficulty Paying for Meds: No Currently Unemployed: No Education: High School Diploma/GED Difficulty w/ Childcare or Family Care: No Living arrangements: with family Spiritual care concerns: No Meds Home Medications and Allergies Home Medications ?Medication ?Instructions ?Recorded ?Confirmed ?Type cholecalciferol (vitamin D3) 1,250 1,250 mcg PO WEEKLY 03/19/22 05/23/25 History mcg (50,000 unit) capsule acetaminophen 500 mg tablet 1,000 mg PO Q6H PRN Pain o r 03/15/23 05/23/25 History (Tylenol Extra Strength) Headache ibuprofen 600 mg tablet 600 mg PO Q6H PRN Cramping o r 03/15/23 05/23/25 History Headache rimegepant 75 mg disintegrating 75 mg PO ONCE PRN migr fransisco headache 12/20/24 05/23/25 History tablet (Nurtec ODT) tirzepatide 5 mg/0.5 mL 5 mg subcut WEEKLY 12/20/24 05/23/25 History subcutaneous pen injector (Mounjaro) Allergies Allergy/AdvReac Type Severity Reaction Status Date / Time hydrocodone Allergy Severe Rash Verified 05/23/25 14:45 Penicillins Allergy Severe Anaphylaxis Verified 05/23/25 14:45 adhesive tape Allergy Intermediate Rash Verified 05/23/25 14:45 amoxicillin Allergy Intermediate Rash Verified 05/23/25 14:45 doxycycline Allergy Intermediate Rash Verified 05/23/25 14:45 nitrofurantoin Allergy Intermediate Hives Verified 05/23/25 14:45 phentermine AdvReac Intermediate Hypertensio Verified 05/23/25 14:45 n Exam Const: General: comfortable and no acute distress Eyes: General: appearance normal, both eyes and all related structures Resp: Effort & Inspection: normal respiratory effort Cardio: Rate: regular rate Skin: General skin exam: normal color Extrem: General: normal to inspection Psych: Mental Status: mental status grossly normal Assessment and Plan Assessment and plan (1) Left ovarian cyst: Code(s): N83.202 - Unspecified ovarian cyst, left side Status: Acute Assessment and Plan: - hx of L cystadenoma removed in 11/2024 - symptoms now returning (pressure, dyspareunia, pelvic pain) - new L ovarian cyst measuring 5x2cm - discussed expectant management vs surgical removal of ovarian cyst; risks and benefits of each discussed and patient desires to proceed with surgical management - patient also desires to conceive, currently has Nexplanon implant in place - will proceed with L ovarian cystectomy and Nexplanon removal
--- NOTE | 2025-05-30 10:07 | WPDANESEPPF ---
Anes - Initial Pre Proc Eval Procedure: Operation Date: 05/30/25 12:00 Proposed Procedures p Laparoscopic Left Ovarian Cystectomy - Daniel Houston MD Date/Time: 05/30/25 10:07 Surgeon: Daniel Houston MD Pre Op Diagnosis: Cyst left ovary Patient Data Age: 29 Gender: F Height: 1.57 m Weight: 104.5 kg Allergies Allergy/AdvReac Type Severity Reaction Status Date / Time hydrocodone Allergy Severe Rash Verified 05/30/25 09:58 Penicillins Allergy Severe Anaphylaxis Verified 05/30/25 09:58 adhesive tape Allergy Intermediate Rash Verified 05/30/25 09:58 amoxicillin Allergy Intermediate Rash Verified 05/30/25 09:58 doxycycline Allergy Intermediate Rash Verified 05/30/25 09:58 nitrofurantoin Allergy Intermediate Hives Verified 05/30/25 09:58 phentermine AdvReac Intermediate Hypertensio Verified 05/30/25 09:58 n Home Medications ?Medication ?Instructions ?Recorded ?Confirmed ?Type cholecalciferol (vitamin D3) 1,250 1,250 mcg PO WEEKLY 03/19/22 05/30/25 History mcg (50,000 unit) capsule acetaminophen 500 mg tablet 1,000 mg PO Q6H PRN Pain or 03/15/23 05/30/25 History (Tylenol Extra Strength) Headache ibuprofen 600 mg tablet 600 mg PO Q6H PRN Cramping or 03/15/23 05/23/25 History Headache rimegepant 75 mg disintegrating 75 mg PO ONCE PRN migraine headache 12/20/24 05/30/25 History tablet (Nurtec ODT) tirzepatide 5 mg/0.5 mL 5 mg subcut WEEKLY 12/20/24 05/30/25 History subcutaneous pen injector (Mounjaro) Patient hx anesthesia problems: none Family hx anesthesia problems: none Results Review: All pre-operative results and documents have been reviewed as part of the pre-operative evaluation. [facility] Past Medical History Medical History (Updated 05/30/25 @ 10:07 by Mikey Contreras DO) Diabetes type 2, controlled Asthma GERD (gastroesophageal reflux disease) Ovarian cyst Morbid obesity Surgical History Surgical History Hx of cholecystectomy H/O eye surgery Family History Family History Father Colon cancer Diabetes mellitus Heart disease Cirrhosis Patient's father is , Onset Age: 58 Cerebrovascular accident Grandparent Ovarian cancer Diabetes mellitus Heart disease Hypertension Cerebrovascular accident Sibling Yepez's palsy Social History Social History Social History: never smoker Smoking status: Never smoker Alcohol intake: never Substance use: never Lack of Transportation: No Lack of Food: Never True Current Housing: I Have Housing Concerned About Future Housing: No Difficulty Paying Gas/Electric Bills: No Difficulty Paying for Meds: No Currently Unemployed: No Education: High School Diploma/GED Difficulty w/ Childcare or Family Care: No Living arrangements: with family Spiritual care concerns: No Anes - Eval Final PreProcedure Day of Procedure 05/30/25 10:07 Patient weight: morbidly obese Heart: regular rate and rhythm Lungs: clear to auscultation Airway: Mallampati scale class II Neurological: alert and oriented Last oral intake: >/= 8 hours ASA classification: III Emergent: no Anesthetic plan: proceed Anesthesia type and monitoring: general ETT and standard monitoring Results Review: All pre-operative results and documents have been reviewed as part of the pre-operative evaluation. Informed Consent: The patient's anesthetic plan and its attendant risks and benefits were discussed with the patient/family/POA. Questions were solicited and answers provided to the satisfaction of the patient/family/POA.
[2025-05-30] MEDS: ACETAMINOPHEN 500 MG TABLET 1000 MG PO (10:24)
--- NOTE | 2025-05-30 10:44 | WPDHPUPDATE1 ---
History and Physical Update Update Date/Time: 05/30/25 10:44 History and Physical has been reviewed, including an updated exam of the patient. There are NO changes in the patient's condition. Discussed surgical plan with patient who would like left salpingo-oopherectomy if L ovarian cyst removal is not possible. Discussed risks including risk of decreased fertility with removal of one ovary and patient voices understanding. Consent updated for procedure: laparoscopic left ovarian cystectomy with Nexplanon removal and possible left salpingo-oopherectomy Risks, benefits, and alternatives have been discussed and questions answered. Patient agrees to proceed with procedure.
[2025-05-30] MEDS: LACTATED RINGERS 1,000 ML 30 ML IV CONT ×2 (10:45→12:10)
[2025-05-30] MEDS: KETOROLAC 15 MG/ML VIAL (*BKC) IV PUSH (10:49)
--- NOTE | 2025-05-30 11:38 | S_PTH ---
PATIENT: Violet Cerda LOC: [facility] U#:[id number] AGE/SX: 29/F ROOM: RE05/30/[address]: Daniel Houston MD : 1995 BED: DIS: 05/30/2025 SPEC #: [id number] RECD: 05/30/25 13:27 STATUS: RAMIRO REQ #: [id number] FELIX: 05/30/25 11:[address]: Daniel Houston DEPT: [facility] [place] Surgical RECD BY: Rosenda Trent ENTERED: 05/30/25 13:27 SP TYPE: Surgical OTHR DR: Los Luque, M.D. Tissues: A - Cyst Procedures: Hematoxylin and Eosin Stain Gross and Microscopic Level 4
[2025-05-30] MEDS: LIDO 1%/EPINEPHRINE 1:100,000 20 ML VIAL 10 ML INFILTRATE (11:41)
--- NOTE | 2025-05-30 12:05 | P.OP_ITS ---
Procedure Note - Detailed Date of Procedure 05/30/25 Pre-op Diagnosis Cyst left ovary Post-op Diagnosis Same Procedure Performed left ovarian cystectomy and Nexplanon removal Surgeon Daniel Houston MD Anesthesia General and Local Indications 5.2cm L ovarian cyst causing pelvic pain and pressure Findings Normal appearing uterus, right ovary and bilateral fallopian tubes; L ovarian cyst with serous fluid Description of Procedure The patient was taken to the operating room with IVFs running. She was placed into the dorsal supine position where she received general endotracheal anesthesia without difficulty. The patient was then placed in a dorsal lithotomy position, using Edgar stirrups. Exam under anesthesia revealed the above findings. Patient was then prepped and draped in the normal sterile fashion. A t nafisa-out procedure was performed and the OR team agreed on the patient and procedure. A red rubber catheter was inserted under sterile technique, draining clear urine. A bivalve speculum was inserted into the vagina. The anterior lip of the cervix was grasped with a single tooth tenaculum. An acorn uterine manipulator was then inserted into the cervix. The speculum was then removed. Gloves were t hen changed. Attention was turned to the patient's abdomen where the umbilicus was incised with a scalpel, making a 5 mm vertical incision. While tenting the patient's abdomen a 5 mm bladeless trocar was inserted into the peritoneal cavity under direct vision. Placement was confirmed by opening pressure of 6mmHg. Underlying organs were inspected and found to be free of injury. The patient's pelvis was examined and the above listed findings noted. Two 5 mm skin incisions were then made in the left upper and left lower quadrants. 5 mm bladeless trocar were then inserted into the peritoneal cavity under direct visualization. Using a blunt grasper and the L hook Ligasure, the cyst was incised and the serous fluid was drained. The cyst cavity and the ovary were irrigated. The cyst wall was then dissected off of the normal ovarian stroma using the [place] ligasure and [place] grasper until no cyst wall remained. The specimen was removed and sent to pathology. Hemostatic powder and bipolar cautery were used to obtain hemostasis of the ovarian bed. Care was taken to avoid the IP ligament throughout the case. The secondary trocars were then removed from the patient's abdomen. The pne umoperitoneum was expelled and the umbilical trocar removed. The skin incisions were then reapproximated with 4-0 Biosyn in a subcuticular fashion. All incisions were then injected with local anesthetic. Skin glue was then placed over the incisions. Attention was then turned to the patient's left arm. The previous nexplanon insertion site was cleaned with betadine and injected with 2cc of 1% lidocaine with epinephrine. A 2mm incision was made overlying the Nexplanon implant. The implant was easily grasped with Veronica forceps and removed. The incision was closed with steri strips. Attention was then turned to the patient's vaginal vault. The acorn uterine manipulator and tenaculum were then removed. A bivalve speculum was inserted into the patient's vagina. The cervix was found to be hemostatic. The speculum was removed. The patient tolerated the procedure well. Sponge, lap, needle, and instrument counts were correct X2. The patient was taken out of the dorsal lithotomy position and was awakened from anesthesia and taken to the recovery room in stable condition. Estimated Blood Loss 10 Urine Output 100 Pathology Yes Complications No immediate complications Condition Stable Disposition Same day
[2025-05-30] MEDS: fentaNYL CITRATE INJ (*CRX) 100 MCG/2 ML VIAL 25 MCG IV PUSH ×3 (12:34→12:55)
[2025-05-30] MEDS: ONDANSETRON INJ 4 MG/2 ML VIAL IV PUSH (12:35)
[2025-05-30] MEDS: oxyCODONE HCL (*CRX) 5 MG TAB IR PO (13:30)
== END 2025-05-30 14:34 | disposition home or self-care (01) ==
PROVIDERS: PCP Family Medicine; Visit Provider Obstetrics & Gynecology
PROC: (CPT 49320; principal; 2025-05-30 12:00)
DX: N83.12 Corpus luteum cyst of left ovary (principal); Z30.46 Encounter for surveillance of implantable subdermal contraceptive; E11.9 Type 2 diabetes mellitus without complications; J45.909 Unspecified asthma, uncomplicated; K21.9 Gastro-esophageal reflux disease without esophagitis; E66.01 Morbid (severe) obesity due to excess calories; Z68.41 Body mass index [BMI] 40.0-44.9, adult; Z79.1 Long term (current) use of non-steroidal anti-inflammatories (NSAID); Z79.85 Long-term (current) use of injectable non-insulin antidiabetic drugs; Z98.890 Other specified postprocedural states; Z90.49 Acquired absence of other specified parts of digestive tract; Z80.0 Family history of malignant neoplasm of digestive organs; Z80.41 Family history of malignant neoplasm of ovary; Z82.49 Family history of ischemic heart disease and other diseases of the circulatory system
CPT/HCPCS: 58662; 11982; 88305; A9270; J1100; J1200; J1885; J2003; J2004; J2250; J2405; J2704; J3010; J7030; J7120

== ENCOUNTER 2025-06-18 19:24 | Emergency (ER) | payer OTHER, MEDICAID, SELFPAY ==
--- OUTSIDE RECORDS SUMMARY | 2025-01-26 09:48 | XMS_ITS | Continuity of Care Document ---
Author Organization [facility] Address [address] [place] [address] [address] [place] [address] Phone Care Team Providers Care Mammal Keeper Name Role Phone Rona CRISTIANJuan Davidi Unavailable Unavailable Procedures Procedure Date Therapeutic Activities Neuromuscular Re-Ed Manual Therapy Therapeutic Activities Neuromuscular Re-Ed Manual [...] Therapeutic Activities Neuromuscular Re-Ed Apr- Manual Therapy Hot or Cold Pack Therapeutic Activities Neuromuscular Re-Ed Apr- Therapeutic Exercise Manual Therapy Hot or Cold Pack Therapeutic Activities Neuromuscular Re-Ed Apr- Therapeutic Exercise Manual Therapy Therapeutic Activities Neuromuscular Re-Ed Therapeutic Exercise Manual Therapy Hot or Cold Pack Therapeutic Activities Neuromuscular Re-Ed Apr- Manual Therapy Hot or Cold Pack Neuromuscular [...] Diagnoses Date Provider Providers Copied on Encounter [facility] [address] [place] [address], [id number], tel:[phone] Foster No Information Scheldt Yolanda. . [facility] [address] [place] [address], [id number], tel:[phone] Champion No Information Scheldt Yolanda. . Referring Provider: Baldomero Ceballos Jr, [address] [place] [address], [address]. tel:[phone] [place] [address] [place] [address], [id number], tel:[phone] Champion No Information Jeremi Cruz. . Referring Provider: Baldomero Ceballos Jr, [address] [place] [address], [address]. tel:[phone] [place] [address], [id number], tel:[phone] Champion No Information Scheldt Yolanda. . Referring Provider: Baldomero Ceballos Jr, [address] [place] [address], [address]. tel:[phone] [place] [address], [id number], tel:[phone] Dm No Information Scheldt Yolanda. . Referring Provider: Baldomero Ceballos Jr, [address] [place] [address], [address]. tel:[phone] [place] [address], [id number], tel:[phone] Champion No Information Garenders Nancy. . Referring Provider: Baldomero Ceballos Jr, [address] [facility], [place], [address]. tel:[phone] [address], [place], [place], [id number], tel:[phone] Dm No Information Jose Juan Oscar. . Referring Provider: Burak Olivera, [address] [place] [address], [place], [address]. tel:[phone] [address], [place], [place], [id number], [place] tel:[phone] Dm No Information ky Oscar. . Referring Provider: Burak Olivera, [address] [place] [address], [place], [address]. tel:[phone] [address] [address], [place], [place], [id number], tel:[phone] Champion No Information ky Oscar. . Referring Provider: Burak Olivera, [address] [place] [address], [place], [address]. tel:[phone] [address], [place], [place], [id number], [place] tel:[phone] Dm No Information Rona Guerrero. . Referring Provider: Burak Olivera, [address] [place] [address], [place], [address]. tel:[phone] [address] [address], [place], [place], [id number], [place] tel:[phone] Dm No Information Ryanne Mueller. [address] [facility], [address], [place], [address], . tel:[phone] Referring Provider: Burak Olivera, [address] [place] [address], [place], [address]. tel:[phone] [facility], [address] [place] [address], [place], [place], [id number], [place] tel:[phone] Champion No Information Ryanne Mueller. [address] [place] [address], [address], [place], [facility], . tel:[phone] Referring Provider: Burak Olivera, [address] [place] [address], [place], [address]. tel:[phone] [address], [place], [place], [id number], tel:[phone] Champion No Information Jose Juan Moore. . Referring Provider: Burak Olivera, [address] [place] [address], [place], [address]. tel:[phone] [address], [place], [place], [id number], tel:[phone] Dm No Information yRanne Mueller. [address] [place] [address], [address], [place], [facility], . tel:[phone] Referring Provider: Burak Olivera, [address] [place] [address], [place], [address]. tel:[phone] [address], [place], [id number], tel:[phone] Dm No Information Jeremi Cruz. . Referring Provider: Burak Olivera, [address] [place] [address], [place], [address]. tel:[phone], [place], [place], [id number], [place] tel:[phone] Dm No Information Jose Juan Moore. . Referring Provider: Burak Olivera, [address] [place] [address], [place], [address]. tel:[phone], [place], [id number], [place] tel:[phone] Dm No Information Ryanne Mueller. [address] [facility], [address], [place], [facility], . tel:[phone] Referring Provider: Burak Olivera, [address] [place] [address] [address], [place], [address]. tel:[phone] [facility], [address] [place] [address], [place], [place], [id number], [place] tel:[phone] Champion No Information Ryanne Mueller. [address] [facility], [address], [place], [facility], . tel:[phone] Referring Provider: Burak Olivera, [address] [place] [address], [place], [address]. tel:[phone] [facility], [address] [place] [address], [id number], tel:[phone] Dm No Information Rona Guerrero. . Referring Provider: Burak Olivera, [address] [place] [address], [place], [address]. tel:[phone] [facility], [address] [place] [address], [place], [place], [id number], tel:[phone] Champion No Information Rona Guerrero. . Referring Provider: Burak Olivera [address] [place] [address], [place], [address]. tel:[phone] [address], [place], [id number], [place] tel:[phone] Champion No Information Ezekiel Donis. . Referring Provider: Bradly Camacho, [address] [facility] [address], [place], [address]. tel:[phone] [facility], [address] [place] [address], [place], [place], [id number], [place] tel:[phone] Champion No Information Ezekiel Donis. . Referring Provider: Bradly Camacho, [address] [facility] [address], [place], [address]. tel:[phone] [facility], [address] [place] [address], [place], [place], [id number], [place] tel:[phone] Champion No Information Devenrels Nancy. . Referring Provider: Burak Olivera, [address] [place] [address], [place], [address]. tel:[phone] [address], [place], [place], [id number], tel:[phone] Dm No Information Enzos Nancy. . Referring Provider: Burak Olivera, [address] [place] [address], [place], [address]. tel:[phone] [facility] [address] [place] [address], [place], [place], [id number], [place] tel:[phone] Champion No Information Ezekiel Donis. . Referring Provider: Bradly Camacho, [address] [place] [address] [address], [place], [address]. tel:[phone] [address] [address], [place], [address], [place] tel:[phone] Champion No Information Ryanne Mueller. [address] [facility], [address], [place], [address], [place]. tel:[phone] Referring Provider: Burak Olivera, [address] [place] [address] 202, [place], [address]. tel:[phone] [facility], [address] [place] [address] 300, [place], [place], [id number], [place] tel:[phone] Champion No Information Ezekiel Donis. . Referring Provider: Bradly Camacho, [address] [facility] [address], [place], [address]. tel:[phone] [facility] [address] [place] [address], [place], [place], [id number], [place] tel:[phone] Champion No Information Rona Guerrero. . Referring Provider: Burak Olivera, [address] [place] [address] [address], [place], [address]. tel:[phone] [facility], [address] [place] [address], [place], [place], [id number], [place] tel:[phone] Champion No Information Ezekiel Donis. . Referring Provider: Bradly Camacho, [address] [facility] [address], [place], [address]. tel:[phone], [id number], [place] tel:[phone] Champion No Information Jose Juan Moore. . Referring Provider: Burak Olivera, [address] [place] [address] [address], [place], [address]. tel:[phone] [facility], [address] [address], [place], [place], [address], [place] tel:[phone] Dm No Information Ezekiel Donis. . Referring Provider: Bradly Camacho, [address] [place] [address] [address], [place], [address]. tel:[phone] [address] [address], [place], [place], [id number], [place] tel:[phone] Dm No Information Ryanne Mueller. [address] [place] [address], [address], [place], [address], [place]. tel:[phone] Referring Provider: Burak Olivera, [address] [place] [address] [address], [place], [address]. tel:[phone] [facility], [address] [facility], [place], [place], [id number], [place] tel:[phone] Dm No Information Jose Juan Moore. . Referring Provider: Burak Olivera, [address] [place] [address] [address], [place], [address]. tel:[phone] [facility] [address] [facility], [place], [place], [id number], [place] tel:[phone] Champion No Information Ryanne Mueller. [address] [facility], [address], [place], [address], [place]. tel:[phone] Referring Provider: Burak Olivera, [address] [place] [address] [address], [place], [address]. tel:[phone] [facility], [address] [facility], [place], [address], [place] tel:[phone] Champion No Information Jose Juan Moore. . Referring Provider: Burak Olivera, [address] [place] [address] [address], [place], [address]. tel:[phone] [facility] [address] [facility] [address], [place], [place], [address], [place] tel:[phone] Champion No Information Ezekiel Donis. . Referring Provider: Bradly Camacho, [address] [facility] [address], [place], [address]. tel:[phone] [facility] [address] [facility] [address], [place], [place], [address], [place] tel:[phone] Dm No Information Ezekiel Donis. . Referring Provider: Bradly Camacho, [address] [facility] [address], [place], [address]. tel:[phone] [facility], [address] [facility] [address], [place], [place], [address], [place] tel:[phone] Dm No Information Ryanne Mueller. [address] [facility], [address], [place], [facility], [place]. tel:[phone] Referring Provider: Burak Olivera, [address] [place] [address] [address], [place], [address]. tel:[phone] [facility], [address] [place] [address], [place], [place], [address], [place] tel:[phone] Champion No Information Jeremi Cruz. . Referring Provider: Burak Olivera, [address] [place] [address] [address], [place], [address]. tel:[phone] [facility], [address] [place] [address], [place], [place], [id number], tel:[phone] Dm No Information Jose Juan Moore. . Referring Provider: Burak Olivera, [address] [place] [address] [address], [place], [address]. tel:[phone] [facility], [address] [place] [address], [place], [place], [address], [place] tel:[phone] Champion No Information Ezekiel Donis. . Referring Provider: Bradly Camacho, [address] [facility] [address], [place], [address]. tel:[phone] [facility] [address] [address], [place], [place], [address], [place] tel:[phone] Dm No Information Ezekiel Donis. . Referring Provider: Bradly Camacho, [address] [facility] [address], [place], [address]. tel:[phone] [facility], [address] [facility] 300, [place], [place], [address], [place] tel:[phone] Champion No Information Ryanne Mueller. [address] [facility], [address], [place], [address], [place]. tel:[phone] Referring Provider: Burak Olivera, [address] [place] [address] [address], [place], [address]. tel:[phone] [facility], [address] [place] [address], [place], [place], [address], tel:[phone] Champion No Information Ezekiel Donis. . Referring Provider: Bradly Camacho, [address], [place], [address]. tel:[phone] [address], [place], [place], [address], [place] tel:[phone] Dm No Information Jose Juan Moore. . Referring Provider: Burak Olivera, [address] [place] [address] [address], [place], [address]. tel:[phone] [address] [facility], [place], [place], [address], [place] tel:[phone] Dm No Information Ezekiel Donis. . Referring Provider: Bradly Camacho, [address], [place], [address]. tel:[phone] [address] [address], [place], [place], [address], [place] tel:[phone] Dm No Information Ezekiel Donis. . Referring Provider: Bradly Camacho, [address], [place], [address]. tel:[phone], [place], [place], [address], [place] tel:[phone] Champion No Information Ezekiel Donis. . Referring Provider: Bradly Camacho, [address], [place], [address]. tel:[phone] [facility], [place], [place], [address], [place] tel:[phone] Champion No Information estefania Moore. . [facility], [place], [place], [address], tel:[phone] Dm No Information Ryanne Mueller. [address] [facility], [address], [place], [facility], . tel:[phone] [facility], [place], [place], [address], [place] tel:[phone] Dm No Information Jose Juan Oscar. . [facility], [place], [place], [address], tel:[phone] Champion No Information Ryanne Mueller. [address] [place] [address], [address], [place], [facility], . tel:[phone] [facility], [place], [place], [address], [place] tel:[phone] Dm No Information Jose Juan Moore. . [facility], [place], [place], [address], [place] tel:[phone] Dm No Information Ryanne Mueller. [address] [place] [address], [address], [place], [facility], . tel:[phone] [facility], [place], [place], [address], [place] tel:[phone] Dm No Information Ezekiel Donis. . Referring Provider: Jordy Keller, [address], [place], [address]. tel:[phone] [facility], [place], [place], [address], [place] tel:[phone] Champion No Information Jose Juan Moore. . [facility] [facility] [address], [place], [place], [address], tel:[phone] Champion No Information Ezekiel Donis. . Referring Provider: Jordy Keller, [address], [place], [address]. tel:[phone] [facility] [facility] [address], [place], [place], [address], [place] tel:[phone] Dm No Information Ezekiel Donis. . Referring Provider: Jordy Keller, [address], [place], [address]. tel:[phone] [facility] [address], [place], [place], [address], tel:[phone] Dm No Information Jose Juan Moore. . [facility] [address], [place], [place], [address], [place] tel:[phone] Champion No Information Ryanne Mueller. [address] [facility], [address], [place], [facility], . tel:[phone] [facility] [address], [place], [place], [address], [place] tel:[phone] Champion No Information Ezekiel Donis. . Referring Provider: Jordy Keller, [address], [place], [address]. tel:[phone] [facility] [facility] 300, [place], [place], [address], tel:[phone] Dm No Information Jeremi Cruz. . [facility] [facility] 300, [place], [place], [address], tel:[phone] Champion No Information Ezekiel Donis. . Referring Provider: Jordy Veronika Krishna, [address], [place], [address]. tel:[phone] [facility] [address], [place], [place], [address], tel:[phone] Dm No Information Ezekiel Donis. . Referring Provider: Jordy Veronika Keller, [address], [place], [address]. tel:[phone], [place], [place], [address], tel:[phone] Champion No Information Ryanne Mueller. [address] [facility], [address], [place], [facility], . tel:[phone] [facility] [address], [place], [place], [address], tel:[phone] Dm No Information Ezekiel Donis. . Referring Provider: Jordy Veronika Keller, [address], [place], [address]. tel:[phone] [facility] [address], [place], [place], [address], tel:[phone] Dm No Information Ryanne Mueller. [address] [facility], [address], [place], [facility], . tel:[phone] [facility] [address], [place], [place], [address], tel:[phone] Dm No Information Ezekiel Donis. . Referring Provider: Jordyteresa Keller, [address], [place], [address]. tel:[phone] [facility], [address], [place], [place], [address], [place] tel:[phone] Dm No Information Hisky Oscar. . [facility], [address], [place], [place], [address], [place] tel:[phone] Dm No Information Ezekiel Donis. . Referring Provider: Jordy Keller, [address], [place], [address]. tel:[phone] [facility], [address], [place], [place], [address], [place] tel:[phone] Dm No Information Hisky Oscar. . [facility], [address], [place], [place], [address], [place] tel:[phone] Dm No Information Hisky Oscar. . [facility], [address], [place], [place], [address], [place] tel:[phone] Champion No Information Ezekiel Donis. . Referring Provider: Jordy Keller, [address], [place], [address]. tel:[phone] [facility], [place], [place], [address], [place] tel:[phone] Champion No Information Ezekiel Donis. . Referring Provider: Jordy Keller, [address], [place], [address]. tel:[phone] [facility], [place], [place], [address], [place] tel:[phone] Dm No Information Hisky Oscar. . [facility], [place], [place], [address], [place] tel:[phone] Champion No Information Ezekiel Donis. . [facility] [facility] [address], [place], [place], [address], tel:[phone] Dm No Information Ryanne Mueller. [address] [facility], [address], [place], [facility], [place]. tel:[phone] [facility], [address] [facility] [address], [place], [place], [address], [place] tel:[phone] Champion No Information Lamberto Mayers. . [facility] [facility] 300, [place], [place], [address], tel:[phone] Champion No Information Jose Juan Oscar. . [facility] [facility] [address], [place], [place], [address], [place] tel:[phone] Champion No Information Jose Juan Oscar. . [facility], [address] [facility] [address], [place], [place], [address], [place] tel:[phone] Dm No Information Ezekiel Donis. . [facility] [facility] 300, [place], [address], [place] tel:[phone] Champion No Information Jeremi Cruz. . [facility] [facility] [address], [place], [place], [address], [place] tel:[phone] Champion No Information Ryanne Mueller. [address] [facility], [address], [place], [facility], . tel:[phone] [facility] [facility] 300, [place], [place], [address], [place] tel:[phone] Champion No Information Ezekiel Donis. . [facility], [address] [facility] 300, [place], [place], [address], tel:[phone] Champion No Information Ezekiel Donis. . [facility] [facility] [address], [place], [place], [address], tel:[phone] Dm No Information Jeremi Cruz. . [facility] [facility] 300, [place], [place], [address], tel:[phone] Champion No Information Jose Juan Moore. . [facility] [facility] 300, [place], [place], [address], tel:[phone] Champion No Information Ezekiel Donis. . Family History Family Member Type Diagnosis Age At Onset No Information Payers Payer name Insurance type Covered alliance party ID Authorakira zamora(s) Jermaine Cerda Social History Type Description Quantity Date Captured Comments Sex Female Smoking Status No Information Chief Complaint And Reason For Visit No Information Reason For Referral Reason For Referral No Information History Of Present Illness Encounter Date Complaint History Of Prese nt Illness No Information Functional Status Date Functional Assessmen t No Information Instructions Date Instruction Additional Infor mation No Information Assessments Type Assessment Date No Information Patient Care Teams Name Effective Dates (start - stop) Status Members No Information
--- OUTSIDE RECORDS SUMMARY | 2025-06-18 19:29 | XMS_ITS | Encounter Summary ---
Author Organization [facility] Address [address] [place] [address] Care Team Providers Care Ssrs Report Developer Name Role Phone David Esquivel DO Primary Care Provider [phone] Robbie Gray MD Unavailable [phone] Encounter Details Date Type Department Care Team (Late st Contact Info) Description 03/28/2022 Ophth Exam [facility] [address] [place] [id number] [address] [facility] [id number] Social History Tobacco Use Types [...] on filedocumented in this encounter Care Teams Ssrs Report Developer Relationship Specialty Start Date End Date David Esquivel DO [address] [place] [address] PCP - General Family Medicine 04/22/21 Robbie Gray MD [address] [phone] PCP - Attributed-[facility] Medicaid [place] 11/30/21 09/11/23 documented as of this encounter
--- OUTSIDE RECORDS SUMMARY | 2025-06-18 19:29 | XMS_ITS | Clinical Summary ---
Author Organization [facility] Address [address] [place] [id number] Care Team Providers Care Heel Seat Filler Name Role Phone Los Luque MD Primary Care Provider [phone] Tucker Esquivel MD, Baldomero Malik Unavailable [phone]- [phone] Allergies Active Allergy Reactions Criticality Noted Date [...] 90 tablet 5 Active rimegepant (NURTEC ODT) tablet,disinteg ratingIndicatio ns:Migraine Place 1 tablet (75 mg total) under the tongue daily as needed (headache) 8 tablet 5 Active Active Problems Problem Noted Date Diagnosed Date Rash 04/12/2025 Assessment & Plan (04/12/2025 12:48 PM CDT): Interesting rash. 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 She does note it [...] 07/09/2024 Assessment & Plan (07/09/2024 12:56 PM HEADING PINNER): No improvement with cefdinir. Prescribed a course [...] 07/09/2024 Assessment & Plan (07/09/2024 12:56 PM HEADING PINNER): See discussion above. Insulin resistance 04/06/2024 Assessment [...] know and as she may be switching [facility] providers. She does not desire right now (possibly in next 1-2 years) so recommend she use condoms if Nexplanon removed. We also discussed metformin as an option although would still not be contraception which she understands. Assessment & Plan (08/10/2024 11:16 AM HEADING PINNER): Chronic problem. She did very well with [...] exercise. Assessment & Plan (08/10/2024 11:16 AM HEADING PINNER): Continue working on healthy diet and exercise, [...] home. Assessment & Plan (10/24/2023 12:17 PM HEADING PINNER): Started on lisinopril July, reports she has had a dry cough since then. Will discontinue lisinopril and start losartan 25 mg daily. Encouraged patient to continue checking blood pressure periodically at home she will notify office for readings consistently greater than 130 systolic. Muscle strain 10/24/2023 Assessment & Plan (10/24/2023 12:19 PM HEADING PINNER): Continue tramadol. Instructed patient to continue ibuprofen [...] 10/24/2023 Assessment & Plan (10/24/2023 12:20 PM HEADING PINNER): Discontinue nystatin. Recommended use of ketoconazole shampoo such as Selsun blue to affected areas a few times per week. Thoroughly dry skin after bathing. Apply clotrimazole cream twice daily, this can be purchased [id number]. Follow- up if no improvement. Upper respiratory tract infection 10/24/2023 Assessment & Plan (10/24/2023 12:27 PM HEADING PINNER): Patient with nasal congestion and sinus pressure [...] 08/05/2023 Assessment & Plan (08/05/2023 1:33 PM HEADING PINNER): Recommend OTC hydrocortisone to area. Will also place referral to [facility] for testing. Family history of early CAD 08/05/2023 Assessment & Plan (08/05/2023 1:33 PM HEADING PINNER): Start lisinopril. Lipid panel ordered. Will also place referral to Cardiology as dad had 1st [place] in his 30s. Disorder of placenta 08/04/2023 [...] follow. Assessment & Plan (08/10/2024 11:15 AM HEADING PINNER): Continue 50k weekly. Assessment & Plan (06/10/2024 6:20 PM CDT): Vitamin-D = 27 despite weekly vitamin-D supplementation. Assessment & Plan (04/06/2024 12:59 PM CDT): Chronic, uncontrolled Restart ergocalciferol 50 K once a week Assessment & Plan (12/16/2023 5:40 PM CDT): Taking 10,000 international units daily since 07/2023 Will check labs today plan for referral if no improvement. Assessment & Plan (08/05/2023 1:32 PM HEADING PINNER): Not currently taking supplement. Will check vitamin-D level and plan accordingly. Cystic fibrosis 08/04/2023 Overview (08/04/2023): Carrier - FOB - neg. Physical exam, annual 03/21/2023 Assessment & Plan (06/10/2024 6:21 PM CDT): Preventive exam; reviewed recommended preventive screenings and vaccinations. Encourage annual flu vaccine. Wear sunscreen/protective clothing when outdoors. -scheduled with judicial clerk later this week Assessment & Plan (03/21/2023 9:47 AM CDT): Preventive exam; reviewed recommended preventive screenings and vaccinations. Encourage annual flu vaccine. Wear sunscreen/protective clothing when outdoors. hypertension 03/21/2023 Assessment & Plan (08/05/2023 1:32 PM HEADING PINNER): Will start lisinopril. Reviewed lifestyle recommendations as well. Labs ordered. Will continue to monitor. Red flags reviewed. Assessment & Plan (03/21/2023 9:47 AM CDT): Reviewed hospitalization records and labs. Blood pressure is well controlled with current regimen, labetalol 200 mg t.i.d.. Patient is following with judicial clerk now, Dr. Sugar purvis. LFTs trending down and hospital discharge, plan to repeat labs in 2 weeks. Follow up with judicial clerk scheduled 04/01/2023. Patient continues to have mild nausea with dull headache, prescribed Zofran p.r.n. scheduled for follow-up with Neurology 05/13/2023 Mixed hyperlipidemia 03/21/2023 Assessment & Plan (08/04/2023 3:42 PM HEADING PINNER): Most recent lipid panel reviewed. Continue to [...] (08/04/2023): Added automatically from request for surgery [id number] Added automatically from request for surgery [id number] Gestational diabetes mellitus, class A2 03/12/20 Overview (08/04/2023): 5/30 - 32u NPH @ HS. h/o GDMa2. testing 5/30 - 32u NPH @ HS. h/o [...] Encounters Date Type Department Care Team Description 06/09/2025 Results [facility] [address] [id number] Natividad Newberry NP XR Elbow Left 3+ Vw 06/07/2025 4:22 PM CDT - 06/07/2025 11:59 PM CDT Hospital Encounter [facility] [address] [place] [address] Injury of left elbow, initial encounter Discharge Disposition: Discharge to home or self care 06/07/2025 Telephone [facility] [address] [phone] Los Luque MD Additional Services Or Orders 04/12/2025 11:00 AM CDT Office Visit [facility] [address] [place] [phone] Addis Reddy NP Rash 04/05/2025 6:15 PM CDT Office Visit [facility] [place] [address] [place] [phone] Kimmie Montaño NP Sore throat (Primary Dx); Suspected COVID-19 virus infection; Acute nasopharyngitis; Rash 03/30/2025 9:35 AM CDT Lab [facility] [address] [place] [phone] Abnormal bruising; Vitamin D deficiency 03/30/2025 Results [facility] [address] [phone] Renata Madison, MEGHA Vitamin D 25 hydroxy, Ferritin, Iron profile w/ IBC, Additional followed-up results: 2 03/25/2025 Telephone [facility] Medicine Scheduling [address] [place] [address] Talita Vallejo from Last 3 Months Immunizations Immunization Administration [...] drink = 0.6 oz pur e alcohol) [facility] Utilities Answer Date Recorded In the [...] How often do you attend chur or faith services? Never 11/02/2024 Do you belong to any clubs o r organizations such as roman catholic groups, unions, fraternal or athletic groups, or [...] staff should administer the PHQ-9) 0 04/12/2025 [facility] - Occupational Stress Questionnaire Answer Date Recorded [...] any time in the past 12 m onths, were you homeless or living in a long-term (including now)? No 11/02/2024 Personal Safety Answer [...] Cancer Screening 1997 Hepatitis C Screening 1997 Pneumococcal vaccine <65 (1 of 2 - PCV) 2016 Covid-19 Vaccine (3 - 2024-2 6 season) 2025 01/15/2021, 12/25/2020 Influenza Vaccine (#1) 2025 , 06/08/2022, 06/25/2021, Additional history exists Regular Well Visit/Exam 18-64 06/10/2025 06/10/2024, 03/21/2023 Depression Screening 04/12/2026 04/12/2025, 11/02/2024, 11/02/2024, Additional history exists DTaP/Tdap/Td Vaccine (11 - T d or Tdap) 01/29/2033 01/29/2023, 02/05/2021, 09/17/2016, Additional history exists Hepatitis B Screening Completed 05/03/1998 , 05/03/1998, 1997, Additional history exists Varicella Vaccines Completed 05/04/2012, 12/27/2002 HPV Vaccines Completed 03/03/2013, 06/25, 05/04/2012, Additional history exists Procedures Procedure Name Priority Date/Time Associated Diagnosis Comments XR ELBOW LEFT 3 OR MORE VIEWS Schedule Routine, Read Routine (OP Routine) 06/07/2025 4:33 PM CDT Injury of left elbow, initial encounter XR RADIUS ULNA LEFT 2 VIEWS Schedule Routine, Read Routine (OP Routine) 06/07/2025 4:33 PM CDT Injury of left elbow, initial encounter POC INFLUENZA A/B, COVID-19 ANTIGEN Routine 04/05/2025 [...] AM CDT Abnormal bruising Vitamin D deficiency from Last 3 Months Results * XR Forearm Left 2 Vw (06/07/2025 4:33 PM CDT) Anatomical Region Laterality Modality Upper Extremities, Forearm Left Compu shayna Radiography 06/08/2025 10:2 4 AM CDT Narrative 06/08/2025 10:25 AM CDT EXAM DESCRIPTION: 1. XR ELBOW LEFT 3 OR MORE VIEWS; 2. XR RADIUS ULNA LEFT 2 VIEWS REASON FOR STUDY: Left elbow pain, fell off stairs 3 weeks ago. Left forearm pain Pt states she fell upstairs x 3.5 weeks Pain to the posterior aspect of the elbow since States painful to the touch FINDINGS: Four views left elbow and two views left forearm submitted without comparison. No acute fracture. The elbow joint spaces are normal. No effusion. Forearm alignment is normal. IMPRESSION: 1. No acute fracture. If persistent clinical concern for an occult fracture, conservative management with repeat radiographs in 2-3 weeks may be considered. THIS IS AN ELECTRONICALLY VERIFIED FINAL REPORT 06/08/2025 10:25 AM - Electronically signed by Meng [place] M.D. MF: ORLANDO Report ID: [id number] Reading Location: [id number] Procedure Note Meng [place] MD - 06/08/2025 EXAM DESCRIPTION: 1. XR ELBOW LEFT 3 OR MORE VIEWS; 2. XR RADIUS ULNA LEFT 2 VIEWS REASON FOR STUDY: Left elbow pain, fell off stairs 3 weeks ago. Left forearm pain Pt states she fell upstairs x 3.5 weeks Pain to the posterior aspect ofthe elbow since States painful to the touch FINDINGS: Four views left elbow and two views left forearm submitted withoutcomparison. No acute fracture. The elbow joint spaces are normal. No effusion.Forearm alignment is normal. IMPRESSION: 1. No acute fracture. If persistent clinical concern for an occultfracture, conservative management with repeat radiographs in 2-3 weeks may beconsidered. THIS IS AN ELECTRONICALLY VERIFIED FINAL REPORT 06/08/2025 10:25 AM - Electronically signed by Meng [place] M.D. MF: [place]O Report ID: [id number] Reading Location: [id number] Natividad Newberry [employer] IMG XR PROCEDURES Final Res ult * XR Elbow Left 3+ Vw (06/07/2025 4:33 PM CDT) Anatomical Region Laterality Modality Upper Extremities, Elbow Left Compute d Radiography 06/08/2025 10:2 4 AM CDT Narrative 06/08/2025 10:25 AM CDT EXAM DESCRIPTION: 1. XR ELBOW LEFT 3 OR MORE VIEWS; 2. XR RADIUS ULNA LEFT 2 VIEWS REASON FOR STUDY: Left elbow pain, fell off stairs 3 weeks ago. Left forearm pain Pt states she fell upstairs x 3.5 weeks Pain to the posterior aspect of the elbow since States painful to the touch FINDINGS: Four views left elbow and two views left forearm submitted without comparison. No acute fracture. The elbow joint spaces are normal. No effusion. Forearm alignment is normal. IMPRESSION: 1. No acute fracture. If persistent clinical concern for an occult fracture, conservative management with repeat radiographs in 2-3 weeks may be considered. THIS IS AN ELECTRONICALLY VERIFIED FINAL REPORT 06/08/2025 10:25 AM - Electronically signed by Meng [place] M.D. MF: OR[place]O Report ID: [id number] Reading Location: [id number] Procedure Note Meng [place] MD - 06/08/2025 EXAM DESCRIPTION: 1. XR ELBOW LEFT 3 OR MORE VIEWS; 2. XR RADIUS ULNA LEFT 2 VIEWS REASON FOR STUDY: Left elbow pain, fell off stairs 3 weeks ago. Left forearm pain Pt states she fell upstairs x 3.5 weeks Pain to the posterior aspect ofthe elbow since States painful to the touch FINDINGS: Four views left elbow and two views left forearm submitted withoutcomparison. No acute fracture. The elbow joint spaces are normal. No effusion.Forearm alignment is normal. IMPRESSION: 1. No acute fracture. If persistent clinical concern for an occultfracture, conservative management with repeat radiographs in 2-3 weeks may beconsidered. THIS IS AN ELECTRONICALLY VERIFIED FINAL REPORT 06/08/2025 10:25 AM - Electronically signed by Meng PERRY: [place] Report ID: [id number] Reading Location: [id number] Natividad Newberry [employer] IMG XR PROCEDURES Final Res ult * POC Influenza A/B, COVID-19 antigen (04/05/2025 6:48 PM CDT) [facility] Influenza A Ag, POC Negative Negative [facility] Influenza B Ag, POC Negative Negative [facility] COVID-19 Ag POC Presumptive Negative Presumptive Negative, Invalid [facility] Nasal 04/05/2025 6:48 PM CDT Kimmie Montaño NP POINT OF CARE TEST ORDERAB LES Final Result [facility] [address] [place] [address], [facility] * POCT rapid strep A (04/05/2025 6:47 PM CDT) [facility] Rapid Strep A, POC Negative Negative Swab 04/05/2025 6:47 PM CDT Kimmie Montaño [employer] POINT OF CARE TEST ORDERAB LES Final Result * Differential, auto (03/30/2025 10:06 AM CDT) [facility] Neutrophil abs 3.24 1.50 - 6.50 K/cumm Comment:Testing performed by : [facility], [address] [place] [address], [id number] Imm gran abs 0.01 0.00 - 0.10 K/cumm [facility] ([place]) Comment:Testing performed by : [facility], [address] [place] [address], [id number] Lymphocyte abs 1.57 0.80 - 3.30 K/cumm [facility] ([place]) Comment:Testing performed by : [address] [address] Monocyte abs 0.55 0.20 - 0.80 K/cumm [facility] ([place]) Comment:Testing performed by : [address] [address] Eosinophil abs 0.03 0.00 - 0.50 K/cumm [facility] ([place]) Comment:Testing performed by : [facility], [address] [place] [address]., [address] Basophil abs 0.02 0.00 - 0.10 K/cumm [facility] ([place]) Comment:Testing performed by : [facility], [address] [place] [address]., [address] Neutrophil pct 59.7 % [facility] ([place]) Comment: Interpretive Data Percent cell count reference ranges are not reported, since discordance with absolute values may lead to misinterpretation of CBC data. Current Interpretive Data was last revised on 2017. Testing performed by: [facility], [address] [place] [address]., [address] Imm gran pct 0.2 % [facility] ([place]) Comment: Interpretive Data Percent cell count reference ranges are not reported, since discordance with absolute values may lead to misinterpretation of CBC data. Current Interpretive Data was last revised on 2017. Testing performed by: [facility], [address] [place] [address]., [address] Lymphocyte pct 29.0 % [facility] ([place]) Comment: Interpretive Data Percent cell count reference ranges are not reported, since discordance with absolute values may lead to misinterpretation of CBC data. Current Interpretive Data was last revised on 2017. Testing performed by: [facility], [address] [place] [address]., [address] Monocyte pct 10.1 % [facility] ([place]) Comment: Interpretive Data Percent cell count reference ranges are not reported, since discordance with absolute values may lead to misinterpretation of CBC data. Current Interpretive Data was last revised on 2017. Testing performed by: [address] [address] Eosinophil pct 0.6 % [facility] ([place]) Comment: Interpretive Data Percent cell count reference ranges are not reported, since discordance with absolute values may lead to misinterpretation of CBC data. Current Interpretive Data was last revised on 2017. Testing performed by: [address] [address] Basophil pct 0.4 % [facility] ([place]) Comment: Interpretive Data Percent cell count reference ranges are not reported, since discordance with absolute values may lead to misinterpretation of CBC data. Current Interpretive Data was last revised on 2017. Testing performed by: [facility], [address] [place] [address]., [address] Blood 03/30/2025 10:0 6 AM CDT 03/30/2025 1:08 PM CDT Renata Madison [employer] LAB BLOOD ORDERABLES Final Re sult Performing Organization Address City/[facility]/ZIP Co de Phone Number HARSHAD LI (HAGUE) 1 [facility] [place] [address] * Iron profile w/ IBC (03/30/2025 10:06 AM CDT) Iron 79 35 - 145 mcg/dl Comment:Testing performed by : [facility], [address] [place] [address]., [address] TIBC 262 250 - 400 mcg/dL HARSHAD LI ([place]) Comment:Testing performed by : [facility], [address] [place] [address]., [address] Transferrin saturation 30 20 - 50 % HARSHAD LI ([place]) Comment:Testing performed by : [facility], [address] [place] [address]., [address] Blood 03/30/2025 10:0 6 AM CDT 03/30/2025 1:08 PM CDT Renata Madison NP LAB BLOOD ORDERABLES Final Re sult Performing Organization Address [facility]/ZIP Co de Phone Number HARSHAD LI (HAGUE) 1 [facility] [place] [address] * CBC with auto differential (03/30/2025 10:06 AM CDT) WBC 5.42 3.80 - 9.90 K/cumm Comment:Testing performed by : [address], [address] Hgb 13.8 11.9 - 15.5 g/dL [facility] ([facility]) Comment:Testing performed by : [address], [address] Hct 42.0 35.6 - 45.5 % [facility] ([place]) Comment:Testing performed by : [address], [address] Plt 259 150 - 400 K/cumm [facility] ([place]) Comment:Testing performed by : [address], [address] MPV 10.8 9.1 - 12.3 fL [facility] ([place]) Comment:Testing performed by : [address], [address] RBC 4.71 3.90 - 5.20 M/cumm [facility] ([place]) Comment:Testing performed by : [address], [address] MCV 89.2 81.3 - 96.4 fL [facility] ([place]) Comment:Testing performed by : [address], [address] MCH 29.3 27.1 - 33.3 pg [facility] ([place]) Comment:Testing performed by : [address], [address] MCHC 32.9 32.3 - 35.7 g/dL [facility] ([place]) Comment:Testing performed by : [address], [address] RDW CV 13.0 11.1 - 14.9 % [facility] ([place]) Comment:Testing performed by : [address], [address] RDW SD 42.9 35.7 - 48.1 fL [facility] ([place]) Comment:Testing performed by : [address], [address] NRBC abs 0.00 0.00 - 0.01 K/cumm [facility] ([place]) Comment:Testing performed by : [address], [address] Blood 03/30/2025 10:0 6 AM CDT 03/30/2025 1:08 PM CDT Renata Madison NP LAB BLOOD ORDERABLES Final Re sult HARSHAD LI ([place]) 1 [facility] [place] [address] * (ABNORMAL) Vitamin D 25 hydroxy (03/30/2025 10:06 AM CDT) Vitamin D 25-OH 20(L) 30 - 80 ng/mL Comment:Testing performed by : [facility], [address] [place] [address]., [address] Blood 03/30/2025 10:0 6 AM CDT 03/30/2025 1:08 PM CDT Renata Madison NP LAB BLOOD ORDERABLES Final Re sult Performing Organization Address [facility] Co de Phone Number HARSHAD LI (HAGUE) 1 [facility] [place] [address] * Ferritin (03/30/2025 10:06 AM CDT) Pathologist [facility] Ferritin 106 13 - 150 ng/mL Comment:Testing performed by : [facility], [address] [place] [address], [place]., [address] Blood 03/30/2025 10:0 6 AM CDT 03/30/2025 1:08 PM CDT Renata Madison NP LAB BLOOD ORDERABLES Final Re sult HARSHAD LI (HAG[place]) 1 [facility] [place] [address] from Last 3 Months Insurance [facility] H[facility]/PPO Address: [address] [place] [id number] [employer] [facility] CHO[employer] [facility] H[facility]/PPO Address: [id number] [place] [id number] [employer] [facility] [employer] H[facility]/PPO Address: [address] [address] [place] [address] [employer] Care Teams Heel Seat Filler Relationship Specialty Start Date End Date Los Luque MD [address] [place] [address] PCP - General Family Medicine 01/07/22 [place] [address] [place] [address] Consulting Physician Orthopedic Surgery 01/22/24
--- OUTSIDE RECORDS SUMMARY | 2025-06-18 19:29 | XMS_ITS | Data Portability ---
Author Organization [facility] Address [address] [place] [address] [place] [address] Care Team Providers Care Labor Service Representative Name Role Phone MERRY CABELLO Primary Care Provider [phone] Assessment Encounter Date Assessment Date Assessment LastModified by Organization Details LastModified Time 05/20/2025 05/20/2025 Greater than 30 minutes was spent in total between reviewing records, discussion with the patient, examination, and coordination of care. [email or web address] Not available 05/20/2025 17:04:32 Plan of Treatment Reminders Order Date Submit Date Provider Last Modified By Organization Details Last Modified Time Details Appointments None recorded. Lab None recorded. Referral None recorded. Procedures None recorded. Surgeries None recorded. Imaging US, transvagina l 2024 025 [email or web address] [address], [address], [place], [address], 09:46:56 Medication Orders oxycodone 5 mg tablet 2024 025 [id number], [address], [place], [place], [id number], 16:20:30 Patient TargetsNo targets recorded. Patient InstructionsNo instructions recorded. Reason for Referral None Reported. Results Created Date Observation Date Name Description Value Unit Range Abnormal Flag Note LastModifiedBy Organization Detail LastModifiedTime 05/10/2005/11/2025 US, trans vagin al No observ ation record ed. [facility] [address], [place], [address], 05/11/2025 13:42:52 05/10/20 25 05/10/2025 US, trans vagin al No observ ation record ed. [email or web address] [address], [place], [address], 05/11/2025 15:13:24 Result Notes None recorded. Problems Name Problem SNOMED Code Status Onset Date Resolution Date Notes Provider Name and Address Organization Details Recorded Time Headache 94962288 Completed chronic Steve Chaudhry null, [facility] 3 15:54:14 Pre-ecla mpsia 621914599 Completed post , started LD ASA Steve Chaudhry null, [facility] 3 15:54:14 Nonreass uring status 741396308 Completed History. Delivere d at 39 - inductio n. Steve ramírez, [facility] 3 15:54:14 Gestatio nal diabetes mellitus 98538473 Completed 01/21 - 34u NPH @ HS. h/o GDMa2. Antenata l testing [facility] 3 15:54:14 Cystic fibrosis 819436728 Completed Carrier - FOB - neg. Steve Chaudhry [facility] 3 15:54:14 Obesity 612905495 Completed Class 3 - nsts at 34 wks. Steve Chaudhry [facility], [facility] 3 15:54:13 Vitamin D deficien cy 88216910 Completed November - June range 15-16 Rpt Aug/SEP Steve Chaudhry [facility] 3 15:54:13 Disorder of placenta 328147385 Completed Bilobed Steve Chaudhry null, [facility] 3 15:54:14 Obesity 844128500 Active Class 3 - nsts at 34 wks. Steve ramírez, [facility] 3 15:54:13 Vitamin D deficien cy 17323247 Active November - June range 15-16 Rpt Steve ramírez, [facility] 3 15:54:13 Shoulder dystocia - delivere d 584146239 Completed 12/24/22- hx shoulder dystocia with brachial plexus injury SECTION Steve Chaudhry desiree, [facility] 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 2 10:47:07 Pregnanc y 88025276 Completed 202102/07/2023 Steve Chaudhry [facility] 3 15:54:22 SARS-CoV -2 Completed 2021 ASA & serial growth Steve Chaudhry [facility] 3 15:54:13 Past pregnanc y history of gestatio nal diabetes mellitus 433710055 Active 2022 Kathy Wolfe [facility] 3 10:32:18 Mixed anxiety and depressi ve disorder 526507381 Active 2023 Kathy Wolfe [facility], [facility] 4 11:46:08 Diabetes mellitus due to structur ally abnormal insulin 17441001 Active 2023 Kathy Wolfe [facility], [facility] 4 11:46:25 Problem Notes None recorded. Procedures Surgical History Date Name Laterality Status Provider Name and Address Organization Details Recorded Time 025 LAPAROSCOPIC OVARIAN CYSTECTOMY (SURG) completed Mireya Barker [facility] 05/30/2025 16:37:44 025 LAPAROSCOPIC OVARIAN CYSTECTOMY (SURG) [facility] 12/22/2024 08:48:33 024 Date of Last Pap Smear completed Lucille Cohenney [facility] 09/15/2024 17:06:34 024 procedure on shoulder completed [facility] 06/12/2024 11:47:59 024 procedure on elbow completed [facility] 06/12/2024 11:48:13 023 Control Implant Insertion completed Mireya Kirby MD [address], [place], [address], [facility] 03/07/2023 10:35:41 023 SECTION (SURG) completed Sheridan Tenorio [facility] 01/28/2023 10:30:38 023 I&D completed Mireya Kirby MD [address], [place], [address], [facility] 09/20/2022 10:54:03 021 Cholecystectomy completed Maude [facility] 12/20/2021 12:09:13 005 procedure on eye completed [facility] 12/20/2021 12:09:28 Imaging Results None recorded. Procedure Notes None recorded. Medical Equipment None Reported. Allergies Allergen ID Allergen Name Allergen Category Reaction Reaction Severity Criticality Documentation Date Start Date Code Code System Note Provider Name and Address Organization Details Recorded Time amoxicill in medicatio n Not available Not available Not available 12/20/2021 723 RxNorm Maude Phelps [facility] 2 11:52:53 36684 Product containin g penicilli n (product) medicatio n Not available Not available Not available 12/20/2021 04035 8001 SNOMED Maude Phelps [facility] 2 11:53:06 20122 Macrobid medicatio n Not available Not available Not available 12/20/2021 82598 1 RxNorm Muade Phelps [facility] 2 11:53:14 91253 doxycycli ne Not available Not available Not available Not available 12/20/2021 3640 RxNorm Maude Phelps [facility] 2 11:53:25 78516 acetamino phen / hydrocodo ne medicatio n Not available Not available Not available 06/04/2022 63130 2 RxNorm Maude Phelps [facility] 2 10:27:39 24791 phentermi ne medicatio n other Not available Not available 10/30/2024 8152 RxNorm Kathy Wolfe [facility] 5 11:20:20 Medications Name Sig Start [...] TABLETS BY MOUTH EVERY DAY AT BEDTIME 06/10 completed Not Available Not Available Not Available benzonatate 100 mg capsule 06/12 completed [...] AREA THREE TIMES DAILY FOR 10 DAYS 06/10 completed Not Available Not Available Not Available ergocalcife rol (vitamin D2) 1,250 mcg (50,000 unit) capsule TAKE 1 CAPSULE BY MOUTH 1 TIME A WEEK active Not Available Not Available No t Available ibuprofen 600 mg tablet TAKE 1 TABLET BY MOUTH EVERY 6 HOURS NEEDED FOR PAIN 06/10 completed Not Available Not Available Not Available levofloxaci n 750 mg tablet 10/30 [...] Not Available Not Available Not Available oxycodone 5 mg tablet TAKE 1 TABLET BY MOUTH EVERY 4 HOURS 06/10 completed Not Available Not Available Not Available [...] subdermal implant Inject by subcutane ous route. 06/10 completed Not Available Not Available Not Available Fioricet 50 mg-300 mg-40 mg capsule [...] completed Not Available Not Available Not Available Opzelura 1.5 % topical cream APPLY A THIN LAYER TO THE AFFECTED AREA(S) BY TOPICAL ROUTE 2 TIMES PER DAY (DO NOT EXCEED 60 GRAMS PER WEEK) active Not Available Not Available No t Available Mounjaro 7.5 mg/0.5 mL subcutaneou s [...] Updated DateTime 05/16/2025 157.48 cm 42.3 kg/m2 208768.27 g 136/84 mm[Hg] Abigail Lori [facility] 05/16/2025 17:28:59 Date Recorded Body height Body mass index (BMI) Body weight Systolic And Diastolic Provider Name and Address Organization Details Last Updated DateTime 05/20/2025 157.48 cm 42.3 kg/m2 718718.84 g 137/85 mm[Hg] Tracey Johann [facility] 05/20/2025 16:01:47 Date Recorded Body height Body mass index (BMI) Body weight Systolic And Diastolic Provider Name and Address Organization Details Last Updated DateTime 06/10/2025 157.48 cm 43.2 kg/m2 778890.8 g 100/65 mm[Hg] Abigail Sandoval [facility] 06/10/2025 16:27:53 Social History Question Answer Notes LastModified by Organizat ion Details LastModified Time Tobacco Smoking Status Never Smoker Kathy Yaneth ramírez, [facility] 06/09/2023 10:31:37 Do You Have An Advance Directive? No Information n ot available 01/04/2022 If You Are , What Was Your Level Of Alcohol Consumption Prior To ? Occasional [email or web address] Information not available 06/09/2023 Are You Blind Or Do You Have Difficulty Seeing? No Information n ot available 01/04/2022 What Is Your Level Of Caffeine Consumption? Occasional [email or web address] Information not available 06/12/2024 How Much Tobacco [...] Type Of Diet Are You Following? CARBOHYDRATE Information n ot available 06/12/2024 What Is The Highest Grade Or Level Of School You Have Completed Or The Highest Degree You Have Received? [id number] Information not available 01/04/2022 Are There Any Guns Present In Your Home? No Information not available 01/04/2022 Do You Use Protection During Sex? Always [email or web address] Information not available 06/09/2023 Do You Use [...] Have Difficulty Walking Or Climbing Stairs? No [email or web address] Information not available 06/09/2023 Sex: Unknown Functional Status Question Answer Note LastModified by Organizat ion Details LastModified Time Do you use any illicit or recreational drugs? No Information not available 01/04/2022 What is your level of alcohol consumption? None [email or web address] Information not available 08/29/2022 Are you able to walk independently without assistance or assistive devices? [email or web address] Information not available 01/04/2022 Are you able to care for yourself independently? Yes [email or web address] Information not available 06/09/2023 What is your occupation? [employer] Information not available 01/04/2022 Do you have difficulty dressing, bathing, grooming, or toileting? No [email or web address] Information not available 06/09/2023 What is your exercise level? None [email or web address] Information not available 06/12/2024 Mental Status Question Answer Note LastModified by Organization D etails LastModified Time Do you feel stressed (tense, restless, nervous, or anxious, or unable to sleep at night)? [id number] Information not available 06/09/2023 Family History Relationship [...] (Food, seasonal, environmental ) Y Other N Drug/Latex Allergies/Reactions Y Blood Transfusion N Breast Cancer N Dermatologic Disorders Y Lung Disease N Defects or Inherited Disease N Breast Problem N Gestational Diabetes Y Hematologic disorders N Anesthesia Complications N History of STI N Deep Vein Thrombosis N Polycystic ovary syndrome N Anxiety Disorder Y Autoimmune disease N Arthritis N Polyps N Infertility N Acid Reflux (GERD) N History of abnormal pap N Cancer N Varicosities N Stroke N Neurologic/Epilepsy Y Endometriosis N High Cholesterol Y Fibromyalgia N Headaches Y Kidney Disease N Heart Problems N Thyroid Problems N Kidney or Bladder Problems N GI Problems N Eating Disorder [...] Last Mammogram Flow Heavy Date of LMP 06/02/2025 N Was last menstrual period normal Y [...] ICD10 Code Diagnosis IMO Codes Diagnosis Note [id number] Nelson No MD David [address] [address] 12/20/2021 11:48:43 12/20/2021 13:10:55 Visual disturbance 65319924 H53.9 Headache 45261494 R51.9 Abnormal u terine bleeding 3871443955 9100 N93.9 This patient is 26-year-ol d [...] 3 complex problems. Contracept ion care management 337376775 Z30.9 [id number] MD William Beck [address],[facility] [place] [address] 01/04/2022 15:39:40 01/07/2022 14:41:26 Contraception care management 878496325 Z30.9 Hyperlipidemia 14556208 E78.5 Syndrome o f carbohydrate intolerance 54661366 K90.49 this patient is a 26-year-ol d [...] minutes face-to-fa ce discussing Two complex issues. [id number] MD William Beck [address],[facility] [place] [address] 02/02/2022 11:18:19 02/04/2022 14:45:27 Obesity 493224845 E66.9 this patient is a 26-year-ol d [...] was given precaution s about phentermin e. [id number] Nelson No MD David [address],[facility] [place] [address] 02/12/2022 09:31:50 02/13/2022 13:10:07 [id number] Nelson No MD David [address],[facility] [place] [address] 02/19/2022 16:58:00 02/19/2022 17:52:10 Obesity 527498515 E66.9 this patient is a 26-year-ol d [...] some of her medication s to the [employer] website. We agreed to continue to see [...] like to some begin. We talked about Contralmita in some detail. She is trying to get GLP 1 agonist covered. [id number] Nelson No MD David [address],[place] [address] 03/12/2022 15:28:36 03/12/2022 17:08:02 Obesity 068258282 E66.9 This patient is a 26-year-ol d [...] She will follow up in 4 weeks. [id number] Nelson No MD David [address],[place] [address] 04/20/2022 10:12:48 04/22/2022 14:57:35 Obesity 896794622 E66.9 this patient is a 26-year-ol d [...] e. She is working with the dietitian. [id number] Nelson No MD David [address],[place] [address] 06/04/2022 09:24:02 06/04/2022 10:25:52 screening 402935643 Z36.87 [id number] Nelson No MD David [address],[place] [address] 06/04/2022 09:26:41 06/04/2022 10:59:33 Carrier of cystic fibrosis gene mutation 084515391 Z14.1 Patent fredi tus arteriosus 97138808 Q25.0 Amenorrhea 68939025 N91. 2 this patient is a 26-year-ol [...] counseling . Discussed early care in detail [id number] Nelson No MD David [address],[place] [address] 06/18/2022 09:17:07 06/18/2022 10:27:53 Uncertain viability of 793228905 O36.80X0 Z3A.01 [id number] MD William Beck [address],[place] [address] 07/16/2022 09:22:03 07/16/2022 14:18:14 screening 710203963 Z36.82 [id number] MD William Beck [address],[place] [address] 07/16/2022 09:22:31 07/17/2022 16:38:29 Routine care 249382578 Z34.91 Vaginitis 32111498 N76.0 [id number] MD William Beck [address],[place] [address] 08/15/2022 09:30:34 08/15/2022 10:23:47 Vulvovaginitis 52663919 N76.0 Headache 66502818 R51.9 [id number] Dorothea Allen [facility] [address],[place] [address] 08/29/2022 09:41:07 08/29/2022 10:46:27 Dysuria 54530418 R30.0 Urinary tr act infectious disease 56570540 N39.0 Increase water and avoid caffeine. Pt states she has taken keflex in the past without any allergic reaction. We did discuss risks and precaution s to take. If any s/s of allergic reaction she will take benadryl and present to ER. Vaginitis 88207677 N76.0 Discussed use of mild soap like dove or ivory, cotton underwear w/out dye, hypoallerg enic detergent, wipe from front to back, avoid tub baths, keep perineum clean and dry, d/c use of baby wipes. Encouraged daily intake of yogurt or womens health probiotic. Internal and external affirm collected along with STD screen. [id number] Nelson No MD David [address],[place] [address] 09/10/2022 15:19:13 09/10/2022 16:45:09 screening for malformation 986365666 Z36.3 [id number] [facility] [address],[place] [address] 09/10/2022 15:20:06 09/11/2022 17:43:11 Acute abscess of skin and/or subcutaneous tissue 317414484 L02.91 Urinary symptoms 2663696 08 R39.9 Vaginitis 34874578 N76.0 [id number] [facility] [address],[place] [address] 09/12/2022 16:56:45 09/13/2022 14:33:42 Acute abscess of skin and/or subcutaneous tissue 711721961 L02.91 [id number] Mireya Kirby MD David [address],[place] [address] 09/18/2022 15:18:42 09/20/2022 14:46:02 Abscess of left thigh 6211732974 7168371 L02.416 [id number] MD William Beck [address],[place] [address] 10/08/2022 10:58:21 10/08/2022 13:57:54 AND/OR placental disorder affecting management of mother 12545955 O36.92X0 U07.1 Z3A.23 [id number] Dorothea Allen CNM David [address],[place] [address] 10/08/2022 10:58:40 10/09/2022 12:18:53 Routine care 989263953 Z34.92 [id number] Dorothea Allen CNM David [address],[place] [address] 10/17/2022 09:35:57 10/17/2022 10:23:59 Routine care 856464659 Z34.92 [id number] MD William Beck [address],[place] [address] 11/04/2022 11:48:30 11/04/2022 12:42:45 Excessive growth affecting management of mother 32164912 O36.62X0 Z3A.27 [id number] Dorothea Allen CNM David [address],[place] [address] 11/04/2022 11:48:46 11/04/2022 18:40:11 Routine care 840526988 Z34.92 [id number] Dorothea Allen CNM David [address],[place] [address] 11/21/2022 09:52:05 11/22/2022 10:13:46 Routine care 265192292 Z34.92 [id number] MD William Beck [address],[place] [address] 12/03/2022 09:35:50 12/03/2022 11:11:29 Gestational diabetes mellitus class A2 22690761 O24.414 O43.90 O99.213 Z86.16 Z3A.31 [id number] [facility] [address],[place] [address] 12/03/2022 09:37:05 12/04/2022 10:23:58 Routine care 977672848 Z34.92 [id number] Nelson No MD David [address],[place] [address] 12/10/2022 09:32:45 12/10/2022 10:58:55 Gestational diabetes mellitus 19790591 O24.419 [id number] MD William Beck [address],[place] [address] 12/10/2022 09:32:59 12/10/2022 10:21:09 Gestational diabetes mellitus class A1 16394470 O24.410 Z3A.32 [id number] Dorothea Allen [facility] [address],[place] [address] 12/10/2022 09:33:14 12/11/2022 17:30:11 Routine care 062681825 Z34.92 [id number] Nelson No MD David [address],[place] [address] 12/13/2022 09:29:21 12/13/2022 10:29:46 Gestational diabetes mellitus 41969783 O24.419 [id number] MD William Alberto [address],[place] [address] 12/17/2022 09:37:09 12/17/2022 10:35:34 Gestational diabetes mellitus 78092596 O24.414 O99.213 Z3A.33 [id number] MD William Alberto [address],[place] [address] 12/17/2022 09:37:34 12/17/2022 11:08:59 Gestational diabetes mellitus 60950383 O24.414 O99.213 Z3A.33 [id number] Mireya Kirby MD David [address],[place] [address] 12/17/2022 09:37:50 12/17/2022 11:08:48 Routine care 218306134 Z34.83 Gestationa l diabetes mellitus 22470072 O24.414 O99.213 Z3A.33 [id number] MD William Beck [address],[place] [address] 12/20/2022 09:36:37 12/20/2022 10:11:40 Gestational diabetes mellitus 48961118 O24.414 O99.213 Z3A.33 [id number] MD Neva [place] [address],[place] [address] 12/24/2022 09:39:52 12/24/2022 10:48:34 Gestational diabetes mellitus 24142516 O24.414 O99.213 Z3A.33 [id number] Mireya Kirby MD David [address],[place] [address] 12/24/2022 09:40:52 12/24/2022 10:14:45 Gestational diabetes mellitus 52285897 O24.414 Z3A.34 [id number] Dorothea Allen [facility] [address],[place] [address] 12/24/2022 09:41:16 12/24/2022 11:51:30 Routine care 186163507 Z34.92 [id number] MD William Alberto [address] [place] [address] 12/27/2022 09:36:58 12/27/2022 12:17:15 Gestational diabetes mellitus 56168999 O24.414 Z3A.34 [id number] MD Neva [place] [address] [place] [address] 12/31/2022 09:38:37 12/31/2022 11:52:00 Gestational diabetes mellitus 16236549 O24.414 O99.213 Z3A.35 [id number] Nelson No MD David [address],[place] [address] 12/31/2022 09:39:14 12/31/2022 11:38:25 Gestational diabetes mellitus 48847257 O24.419 [id number] MD William Alberto [address],[place] [address] 01/03/2023 09:33:55 01/03/2023 10:27:09 Gestational diabetes mellitus class A2 14594299 O24.414 [id number] Mireya Kirby MD David [address],[place] [address] 01/03/2023 09:34:17 01/03/2023 11:42:38 Gestational diabetes mellitus 16679316 O24.414 O99.213 Z3A.35 Shoulder d ystocia with problem 635965224 O66.0 [id number] MD William Alberto [address],[place] [address] 01/07/2023 11:25:00 01/07/2023 12:36:54 Gestational diabetes mellitus class A2 07037696 O24.414 O99.213 Z3A.36 [id number] MD William Alberto [address],[place] [address] 01/07/2023 11:27:35 01/07/2023 13:54:43 Gestational diabetes mellitus 90097129 O24.414 O99.213 Z3A.35 [id number] MD William Alberto [address],[place] [address] 01/10/2023 09:29:34 01/10/2023 10:13:51 Gestational diabetes mellitus 20215096 O24.414 O99.213 Z3A.35 [id number] MD Neva [place] [address],[place] [address] 01/10/2023 09:29:57 01/15/2023 14:52:39 Gestational diabetes mellitus class A2 98754796 O24.414 O99.213 Z3A.37 [id number] MD William Alberto [address],[place] [address] 01/14/2023 09:39:24 01/14/2023 11:01:48 Gestational diabetes mellitus class A2 35048445 O24.414 O99.213 Z3A.37 [id number] MD William Alberto [address],[place] [address] 01/14/2023 09:39:40 01/14/2023 10:59:47 Gestational diabetes mellitus 20557127 O24.414 O99.213 Z3A.35 [id number] MD William Alberto [address],[place] [address] 01/14/2023 09:39:52 01/14/2023 15:23:40 Gestational diabetes mellitus class A2 66882540 O24.414 O99.213 Z3A.37 [id number] MD William Alberto [address],[place] [address] 01/17/2023 09:24:00 01/17/2023 12:36:47 Gestational diabetes mellitus 40202286 O24.414 O99.213 Z3A.35 [id number] MD William Alberto [address],[place] [address] 01/21/2023 09:19:51 01/21/2023 10:36:45 Gestational diabetes mellitus 48301430 O24.414 O99.213 Z86.16 Z3A.38 [id number] MD William Alberto [address],[place] [address] 01/21/2023 09:20:08 01/21/2023 10:31:38 Gestational diabetes mellitus 59893899 O24.414 O99.213 Z86.16 Z3A.38 [id number] MD William Alberto [address],[place] [address] 01/24/2023 09:33:07 01/24/2023 10:12:01 Gestational diabetes mellitus class A2 78099618 O24.414 O99.213 Z3A.37 [id number] MD William Alberto [address],[place] [address] 01/24/2023 09:33:27 01/24/2023 10:35:40 Gestational diabetes mellitus 06841909 O24.414 O99.213 Z86.16 Z3A.38 Shoulder d ystocia with problem 675666050 O66.0 [id number] MD William Alberto [address],[place] [address] 01/28/2023 10:10:23 01/28/2023 10:17:37 [id number] Mireya Kirby MD David [address],[place] [address] 02/03/2023 11:10:16 02/03/2023 11:47:22 Postoperative visit 823966211 Z09 Candidal intertrigo 2661 89553 B37.2 [id number] MD Neva [place] [address],[place] [address] 03/03/2023 11:31:02 03/05/2023 14:53:40 care 415002580 Z39.2 [id number] MD William Alberto [address],[place] [address] 03/07/2023 09:58:00 03/07/2023 10:36:44 Contraception care management 575410199 Z30.9 Implantati on of subcutaneous contraceptive 404233697 Z30.9 [id number] MD William Alberto [address],[place] [address] 03/18/2023 10:13:42 03/18/2023 10:35:25 Pre-eclampsia 375502586 O14.20 [id number] MD William Alberto [address],[place] [address] 04/01/2023 12:26:47 04/01/2023 13:15:31 Dysuria 72419677 R30.0 Candidal vulvovaginitis 12838102 B37.31 Liver enzy mes level above reference range 303732650 R74.01 [id number] Mireya Kirby MD David [address] [address] 04/18/2023 12:29:18 04/18/2023 13:41:37 Abdominal mass 704177691 R19.00 Past pregn cande history of section 398156727 Z98.890 Pain on ab dominal wall movement [id number] R10.9 [id number] FRANCIS Samaniego David [address] [address] 06/09/2023 10:09:43 06/09/2023 11:53:35 Gynecologic examination 76354915 Z01.419 WWEBC - nexplanon, inserted 03/07/2023 iscussed [...] of today's plan if desired. Irregular periods 345352 07 N92.6 Contracept ion care management [id number] Z30.9 Vaginitis 01774664 N76.0 [id number] Nelson No MD David [address] [address] 07/28/2023 16:57:15 07/29/2023 09:04:46 Contraception care management [id number] Z30.9 27-year-ol d female who has concern about her Nexplanon. She is concerned about it breaking. Nexplanon was palpated. It arcs and bends normally. It is flexible. It is placed normally. Patient was given reassuranc e. She will follow-up as needed. [id number] Nelson No MD David [address],[place] [address] 06/12/2024 11:29:05 06/12/2024 11:57:33 Gynecologic examination 27609363 Z01.419 Annual gynecologi miguel exam performed. Patient [...] Pap smear- done laboratory evaluation - done [id number] Nelson No MD David [address] [address] 09/01/2024 17:08:53 09/01/2024 18:00:31 Irregular periods 62249921 N92.6 Discussed that irregular cycles can sometimes occur with Nexplanon. Recommende d that patient call office if prolonged bleeding continues as estradiol 2 mg PO daily x 14 days can be prescribed to help stop the bleeding.T VUS ordered to evaluate for endometria l hyperplasi a/abnormal ities contributi ng to prolonged bleeding. Pain in pelvis 83259470 R10.2 TVUS ordered to evaluate for causes of right-side d pelvic pain. Notable right-side d tenderness upon bimanual exam.F/U with MD pending results.Re quested CT scan from [facility]. [id number] Nelson No MD David [address],[place] [address] 09/08/2024 17:33:10 09/08/2024 18:13:14 Irregular periods 33798650 N92.6 R10.2 [id number] Nelson No MD David [address],[place] [address] 09/15/2024 16:46:48 09/16/2024 06:49:00 Abnormal uterine bleeding 5155585709 9100 N93.9 this patient is a 28-year-ol [...] 20 minutes on her care in total. [id number] Nelson No MD David [address],[place] [address] 10/27/2024 13:59:15 10/27/2024 14:36:14 Cyst of left ovary [id number] 0557860 N83.202 R10.2 N93.9 [id number] Nelson No MD David [address],[place] [address] 10/30/2024 10:44:39 11/01/2024 10:41:19 Pain in pelvis 83272206 R10.2 Cyst of ovary 07424291 N 83.209 This patient is a 29-year-ol [...] 20 minutes on her care in total. [id number] Nelson No MD David [address],[place] [address] 12/08/2024 14:20:08 12/08/2024 14:56:08 Cyst of left ovary 9269759476 [id number] N83.202 R10.2 N93.9 [id number] MD William Beck [address],[place] [address] 12/15/2024 16:02:17 12/15/2024 16:52:49 Cyst of left ovary 8474716923 5134837 N83.202 [id number] patient is a 29-year-ol d who female [...] there is risk of hemorrhage and infection. [id number] Nelson No MD David [address],[place] [address] 12/21/2024 08:47:04 12/21/2024 10:57:03 [id number] Nelson No MD David [address],[place] [address] 12/30/2024 09:23:04 12/30/2024 09:59:25 Postoperative visit 416829245 Z48.89 [id number] Is a 29-year-ol d female presents for postop follow-up. She had a laparoscop ic ovarian cystectomy . 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 There was probably residual tumor present. We agreed to periodical ly repeat ultrasound . Incisions are clean dry and intact. We discussed PCOS her subdermal contracept krishna implant. [id number] Nelson No MD David [address],[place] [address] 05/09/2025 16:59:14 05/09/2025 17:53:27 Pain in female genitalia on intercourse 61952052 N94.10 [id number] Abnormal u terine bleeding 6296244529 9100 N93.9 [id number] this patient is a 29-year-ol d female [...] recurrent cysts. She is tender on exam. [id number] Nelson No MD David [address],[place] [address] 05/10/2025 17:16:33 05/10/2025 17:41:54 Abnormal uterine bleeding 5518909794 9100 N93.9 [id number] this patient is a 29-year-ol d female [...] recurrent cysts. She is tender on exam. [id number] Nelson No MD David [address],[place] [address] 05/16/2025 17:01:36 05/17/2025 09:05:58 Pain in pelvis 80762096 R10.2 82869 Cyst of right ovary 1223 552798 2799316 N83.201 [id number] this patient is a 29-year-ol d female with pelvic pain and an ovarian cyst. We reviewed the ultrasound results today. She has a 5 cm ovarian cyst. We agreed to observe the cyst and repeat ultrasound in 1 month. She will monitor her pain. She is considerin g surgical remediatbridger n. Spent over 20 minutes on her care in total. We discussed risks, benefits, and alternativ es to surgical treatment. [id number] REDD WAITE MD David [address] [address] 05/20/2025 15:50:53 05/20/2025 17:39:35 Cyst of left ovary 1062367311 0709869 N83.202 194666 - hx of L cystadenom a removed [...] she would like to take Irregular periods 322053 07 N92.6 40162 - reports irregular bleeding throughout the month- likely due to Nexplanon- would likely resolve with removal; consider removal especially as patient desires [id number] REDD WAITE MD David [address] [address] 05/30/2025 08:40:44 05/30/2025 12:02:33 Postoperative pain 787958628 G89.18 715183 [id number] REDD WAITE MD David [address] [address] 06/10/2025 16:11:55 06/10/2025 16:49:18 Postoperative visit 463576270 Z48.89 [id number] - S/p lap ovarian cystectomy on 06/01- meeting post op milestones , pain well controlled - incisions c/d/i- ok to d/c restrictio ns- RTC 1 year for annual exam Health Concerns Section Related Observation LastModified by Organization Detai ls LastModified Time None Recorded Concern Status LastModified by Organization Details LastModified Time None Recorded Advance Directives Directive N: Payers Insurance Date Sequence Insurance Name Policy Number Policy Real Covered Member ID Real Member ID Guarantor Name 09/16/2022 1 [facility] [id number] Louis Cerda [id number] Violet Cerda 06/13/2025 1 [facility] [id number] Louis Cerda [id number] Violet Cerda 05/27/2025 2 [place] [facility] Violet Joe [id number] Violet Cerda 09/25/2022 2 [place] [id number] Violet Cerda [id number] Violet Cerda Notes Date Note Type Note Provider Name and Address Organization Details Recorded Time 05/16/2025 text/html this patient is a 29-year-old [...] treatment. Nelson No MD [address], [place], [address], [facility] 05/16/2025 18:25:31 05/20/2025 text/html ROS as [...] future. REDD WAITE MD [address], [place], [address], [facility] 05/20/2025 17:04:35 06/10/2025 text/html S/p lap ovarian cystectomy 06/01. Patient doing well, no complaints. Pain resolved. Tolerating general diet. Denies nausea or vomiting. No shortness of breath or chest pain. Ambulating. No bleeding. REDD WAITE MD [address], [place], [address], [facility] 06/10/2025 16:47:45 OBGyn Episode Ob Episode Information Episode Created Date Number of Fetuses Patient Bloodtype Patient rh Status Prepregnancy Weight lbs Domestic Partner Domestic Partner Phone Father Name Churn Operator Margarine Status 07/16/20 22 1 O Positive Louis Cerda CLOSED Fetus Data First Name Last Name Admitted to NICU Weight (g) Sex Living Outcome Pediatric Complications Fetus ID Race Codes Race Delivery Type Paul richard 3373.59 05 M true Full Term [id number] Primary Problems Problem Notes family h/o patent ductus wit h males12/24/22- hx shoulder dystocia with brachial plexus injury Problem Name Start Date End Date Resolution Snomed Code Not e Headache 77997793 chronic Pre-eclampsia 526310847 post p artum, started LD ASA Nonreassuring status 483291571 History. Delive red at 39 - induction. Gestational diabetes mellitus 81948768 01/21 - 32u NPH @ HS.h/o GDMa2. testing Cystic fibrosis 034779917 Flores ier - FOB - neg. Obesity 106752479 Class 3 - nsts at 34 wks. SARS-CoV-2 07/27/2022 556085374 ASA & se rial growth Vitamin D deficiency 69932418 November - June range 15-16 Rpt Aug/SEP Disorder of placenta 216523185 Bilobed Shoulder dystocia - delivered 476090152 12/24/22- hx shou lder dystocia with brachial [...] Gestation 0 [email or web address] 07/16/2022 02/02/20 23 0 Pre- Flowsheet Flowsheet Date 07/16/2022 Oates Score Blood [...] Weight in lbs Pre/Post Dialysis Refused Weight 253.026892594077 BP Diastolic BP Location Tested BP Systolic [...] Weight in lbs Pre/Post Dialysis Refused Weight 255.455708306070 BP Diastolic BP Location Tested BP Systolic [...] Weight in lbs Pre/Post Dialysis Refused Weight 253.777124429231 BP Diastolic BP Location Tested BP Systolic [...] Weight in lbs Pre/Post Dialysis Refused Weight 257.481062529493 BP Diastolic BP Location Tested BP Systolic [...] Weight in lbs Pre/Post Dialysis Refused Weight 256.290411223628 BP Diastolic BP Location Tested BP Systolic [...] Weight in lbs Pre/Post Dialysis Refused Weight 158.372336127165 BP Diastolic BP Location Tested BP Systolic [...] Weight in lbs Pre/Post Dialysis Refused Weight 255.927829158480 BP Diastolic BP Location Tested BP Systolic [...] Weight in lbs Pre/Post Dialysis Refused Weight 257.550160265535 BP Diastolic BP Location Tested BP Systolic [...] Weight in lbs Pre/Post Dialysis Refused Weight 262.813605211188 BP Diastolic BP Location Tested BP Systolic [...] care guidelines given. Pt stopped up at [facility] after seeing director consumer today and she recommended that pt check [...] Weight in lbs Pre/Post Dialysis Refused Weight 262.800583654748 BP Diastolic BP Location Tested BP Systolic [...] Weight in lbs Pre/Post Dialysis Refused Weight 263.608908799340 BP Diastolic BP Location Tested BP Systolic [...] Weight in lbs Pre/Post Dialysis Refused Weight 263.985825953346 BP Diastolic BP Location Tested BP Systolic [...] Weight in lbs Pre/Post Dialysis Refused Weight 263.405295610535 BP Diastolic BP Location Tested BP Systolic [...] Weight in lbs Pre/Post Dialysis Refused Weight 263.964863954669 BP Diastolic BP Location Tested BP Systolic [...] Weight in lbs Pre/Post Dialysis Refused Weight 265.950343304241 BP Diastolic BP Location Tested BP Systolic [...] Weight in lbs Pre/Post Dialysis Refused Weight 267.567520220092 BP Diastolic BP Location Tested BP Systolic [...] Weight in lbs Pre/Post Dialysis Refused Weight 266.945237775086 BP Diastolic BP Location Tested BP Systolic BP Type 86 125 Fetus Heart Rate Present A 140 Fetus Movement A Yes Comments Doing well. On 28u NPH at [facility] fasting finally normal, 84-96. All pp [...] Weight in lbs Pre/Post Dialysis Refused Weight 267.952933270947 BP Diastolic BP Location Tested BP Systolic [...] Weight in lbs Pre/Post Dialysis Refused Weight 254.888479544183 BP Diastolic BP Location Tested BP Systolic [...] Estim ated Date of Delivery false Thalassemia (Hebrew, Ugandan, Mediterranean, Or Background): MCV < 80 false Neural Tube Defect (Meningomyelocele, Spina Bifi da, Or Anencephaly) false Congenital Heart Defect false Down Syndrome false Yury-Sachs (eg, Latter-Day, Cajun, Icelandic-Uruguayan) f alse Cristiano Disease false Sickle Cell Disease Or Trait () false Hemophilia Or Other Blood Disorders false Muscular Dystrophy false Cystic Fibrosis false Bulloch's Chorea false Intellectual Disability/Autism false If Yes, [...] Domestic Partner Domestic Partner Phone Father Name Churn Operator Margarine Status 07/25/20 22 1 CLOSED Fetus Data First Name Last Name Admitted to NICU Weight (g) Sex Living Outcome Pediatric Complications Fetus ID Race Codes Race Delivery Type , Spontane ous [id number] Asher Calculation Initial Asher Date Initial Exam [...] Domestic Partner Domestic Partner Phone Father Name Churn Operator Margarine Status 12/21/19 22 1 CLOSED Fetus Data First Name Last Name Admitted to NICU Weight (g) Sex Living Outcome Pediatric Complications Fetus ID Race Codes Race Delivery Type 3146.56 7704 F Full Term [id number] Vaginal Delivery Asher Calculation Initial Asher Date [...]
--- OUTSIDE RECORDS SUMMARY | 2025-06-18 19:29 | XMS_ITS | Clinical Summary ---
Author Organization [facility] [employer] Address [address] [place] [address] Care Team Providers Care Clerical Support Name Role Phone EsquivelDavid parra DO Primary Care Provider [phone] Source Comments [facility],non-owned Affiliates and Associated Physician Practices is amultiple site organization consisting of ambulatory clinics and hospital sitesin [place], [place], [place] and [place]. This disclosure is being madepursuant to the Care Everywhere program and may not contain all information available regarding this patient. Last updated 18.[facility] [employer] Allergies Active Allergy Reactions Criticality Noted Date [...] (04/17/2022): Added automatically from request for surgery [id number] Pre-eclampsia, severe, with delivery 04/09/2021 Gestational diabetes [...] complete this topic Insurance MEDICAID - [place] [employer] [facility] SELF PAY NO INSURANCE Member Subscriber Plan / Payer (Ef fective for All Dates) Name:Violet Cerda Member ID:Not on file Relation to Subscriber:Not on file Name:VIOLET CERDA Subscriber ID:Not on file (Home) Address: [address] [place] [id number] Payer ID:Not on file Group ID:Not on file Type:Self Pay Address: [facility] Advance Directives * Full Code (Latest Code Status on File) Date Activated Date Inactivated Comments 03/29/2022 1:06 AM 03/30/2022 1:57 PM * Full Code Date Activated Date Inactivated Comments 03/28/2022 4:45 PM 03/29/2022 1:06 AM Care Teams Clerical Support Relationship Specialty Start Date End Date David Esquivel DO [address] [place] [address] PCP - General Family Medicine 04/22/21
--- OUTSIDE RECORDS SUMMARY | 2025-06-18 19:30 | XMS_ITS | Clinical Summary ---
Author Organization [facility] [[email or web address]] Address [address] [place] [address] Phone Care Team Providers Care Wood Inspector Name Role Phone MAIKEL ARREDONDO, ROSSY Holland Primary Care Provider [phone] Reason for Visit and Chief Complaint The Chief Complaint is: PT IS COVID POS. PT C/O EAR PRESSURE, FEELS LIKE FLUID IN THEM, RT ONE IS CLOGGED Problems Includes: Problems addressed during this encounter and other active Problems All Visits Onset Date Resolved Date Provider Condition S tatus 07/12/2022 CANDY MONTANO WIRELINE FIELD OPERATOR-C Act krishna Last Documented On 2 9:34AM ; [facility] 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 Migrainosus 07/12/2015 FELIPA DAVIS WIRELINE FIELD OPERATOR-BC Active Last Documented On 5 6:11PM ; [facility] Note: Unchanged Plan of Treatment - The options include close observation - Last Documented On 07/14/2023 5:30PM ; [facility] - Watch for signs/symptoms of infection, return to the clinic if seen - Last Documented On 07/14/2023 5:30PM ; [facility] Instructions to patient Watch for signs/symptoms of infection, return to the clinic if seen Last Documented On 3 4:53PM ; [facility] Assessments Includes: Assessments from this encounter Findings - Acute suppurative otitis media of both ears [Acute suppurative otitis media without spontaneous rupture of ear drum, bilateral] - Last Documented On 07/14/2023 5:30PM ; [facility] Instructions Includes: Instructions from this encounter Instructions to patient Watch for signs/symptoms of infection, return to the clinic if seen Last Documented On 3 4:53PM ; [facility] Medical Equipment - Implanted Devices Includes: [...] take one tablet on day 2-5 [address]: [address], [phone] - Last Documented On 07/14/2023 5:02PM By Candy MAYES ; [facility] Current Medications (continue as prescribed) Lisinopril 10 MG Oral Tablet 08/04/2023 Provider: BRAVO DILL NP Diagnosis: Last Documented On 09/26/2023 7:15PM By Mireya Carrillo MA ; [facility] Nexplanon 68 MG Subcutaneous Implant 07/14/2023 Prov ider: Diagnosis: Last Documented On 07/14/2023 4:40PM By Mireya Carrillo MA ; [facility] Vitamin D (Ergocalciferol) 64508 UNIT Oral Capsule Provider: Diagnosis: once weekly Last Documented On 2 12:03PM By BYRON SCOTT ; [facility] GoodSense Vitamins 28-0.8 MG Oral Tablet 12/24 Provider: Diagnosis: PRN Last Documented On 2 11:22AM By BYRON SCOTT ; [facility] EQ Ibuprofen 200 MG Oral Tablet 09/17/2019 Provider: Diagnosis: 3 tablets Q8H Last Documented On 0 3:05PM By Pili POWELL ; [facility] Tylenol 325MG Oral Tablet 02/08/2019 Provider: Diagnosis: PRN-fever & pain Last Documented On 9 10:29AM By BYRON SCOTT ; [facility] Singulair 10MG Oral Tablet 10/14/2017 Provider: SHANT Samaniego Diagnosis: Allergic rhiniti s due to pollen One tablet daily Last Documented On 8 2:46PM By SHANT STRATTON PA-C ; [facility] ProAir HFA 108 (90 Base)MCG/ ACT Inhalation Aerosol Solution 08/24/2017 Provider: PILI GARZA WIRELINE FIELD OPERATOR- Diagnosis: Wheezing use as directed 2 puffs every 4-6 hours as neede d Last Documented On 7 1:23PM By PILI CALIXTO [facility]- ; [facility] Past Medications on file Zofran 8 MG Oral Tablet 12/20/2019 - 12/25/2019 Provid er: RODDY DELAROSA PA-C Diagnosis: 1 tab po q 8 hrs PRN. Last Documented On 0 9:47AM By RODDY DELAROSA PA-C ; [facility] Topamax 50 MG Oral Tablet 12/17/2019 - 02/15/2020 Prov ider: RODDY DELAROSA PA-C Diagnosis: One tablet twice a day--this is an increase. Last Documented On 0 9:49AM By RODDY DELAROSA PA-C ; [facility] Cyclobenzaprine HCl 10 MG Oral Tablet 12/03/2019 - 12/08/2019 Provider: LUIZ JAIMES MD Diagnosis: One tablet daily muscle relaxer Last Documented On 0 11:50AM By LUIZ ROLON MD ; [facility] Aviane 0.1-20 MG-MCG Oral Tablet 11/17/2019 - 02/09/2020 Provider: RUTHANN ROMANO RN MEGHA Diagnosis: Encounter for in itial prescription of contraceptive pills One tablet daily TAKE DIR ECTED START Friday AFTER NEXT MENSES back up method pack one Last Documented On 0 11:58AM By RUTHANN ROMANO MEGHA- ; [facility] Medications Administered Includes: Administered [...] 99 Last Documented: On 07/14/2023 4:42PM ; [facility] Results Includes: Results discussed [...] 07/14/2023 Last Documented On 3 5:30PM ; [facility] [[email or web address]] Smoking Status Unknown Procedures and Surgical History Includes: Procedures from this encounter Procedures Code Diagnosis Performing Provider Service L ocation Service Date Pt to use OTC fever/pain product as needed per product instruction.~ Last Documented On 3 4:53PM ; [facility] plan of care reviewed and agreed to Last Documented On 3 4:53PM ; [facility] use of tobacco assessment performed 1000F Last Documented On 3 4:41PM ; [facility] [[email or web address]] Medical History Includes: Medical History addressed during this encounter Description Last Updated Taking OTC medications 07/14/2023 Last Documented On 3 5:30PM ; [facility] Family History Includes: Family History addressed during [...] Last Documented On 4 7:16PM ; [facility] Penicillins Allergy Skin Rashes / Er uption of skin, Shortness of Breath / Dyspnea, keflex is ok 06/09/2013 Active Last Documented On 4 7:16PM ; [facility] Macrobid Allergy Skin Rashes / Eruption of skin, Nausea 0 03/07/2015 Active Last Documented On 4 7:16PM ; [facility] Doxycycline Hyclate Allergy Skin Rashes / Eruption of skin, Hives / Urticaria 07/08/2013 Active Last Documented On 4 7:16PM ; [facility] Amoxicillin Allergy Skin Rashes / Er uption of skin, Shortness of Breath / Dyspnea, does have epi pen 03/07/2015 Acti ve Last Documented On 4 7:16PM ; [facility] [[email or web address]] Encounters Encounter Provider Location Date Check-In Time Check-Out Time Diagnosis COVID SICK VISIT- ESTABLISHED PATIENT CANDY Tolbert CHARMAINE JAYP-C [facility] 07/14/20 23 4:05PM 4:52PM Otitis Media Acute Suppurative Both Ears Insurance Includes: Active Insurance Policies Plan Name Member ID Group # Subscriber Relationship Effect krishna Dates 1 - [facility] [id number] GARRY SPANGLER horace 2 - MED[facility]ID [place] [facility] [id number] JESSICA SPANGLER Self Clinical Notes Includes: Clinical Notes from this encounter * Progress note Date Encounter Last Documented by 07/14/2023 COVID SICK VISIT- ESTABLISHED IRINA VIOLETA Last documented on 07/14/2023; 5:30 PM, CANDY POWELL; [facility] Chief Complaint The Chief Complaint [...] days, 0 refills - Vitamin D (Ergocalciferol) 15065 UNIT Oral Capsule as directed once weekly, [...]
--- OUTSIDE RECORDS SUMMARY | 2025-06-18 19:30 | XMS_ITS | Clinical Summary ---
Author Organization [facility] Address [address] [place] [address] Phone Care Team Providers Care Securities Counselor Name Role Phone MAIKEL ARREDONDO, ROSSY Holland Primary Care Provider [phone] Reason for Visit and Chief Complaint The Chief Complaint is: PT C/O SORE THROAT Problems Includes: Problems addressed during this encounter and other active Problems All Visits Onset Date Resolved Date Provider Condition S tatus 07/12/2022 ALYSSA MONTANO CIRCUIT TESTER-C Act krishna Last Documented On 2 9:34AM ; [facility] 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 Migrainosus 07/12/2015 FELIPA DAVIS CIRCUIT TESTER-BC Active Last Documented On 5 6:11PM ; [facility] Note: Unchanged Plan of Treatment - Return to the clinic if condition worsens or new symptoms arise - Last Documented On 09/26/2023 7:33PM ; [facility] Strep test was negative [...] - Last Documented On 09/26/2023 7:33PM ; [facility] Assessments Includes: Assessments from this encounter Findings - [J02.9 - Acute pharyngitis, unspecified] Acute pharyngitis - Last Documented On 09/26/2023 7:33PM ; [facility] Medical Equipment - Implanted Devices Includes: Current Devices No Medical Equipment Recorded Medications Includes: Medications discussed during this encounter and other current Medications Discontinued / Stopped on this date on 09/15/2023 Fluconazole 150 MG Oral Tablet Provider: Diagnosis: Last Documented On 09/26/2023 7:16PM By Mireya Carrillo MA ; [facility] Current Medications (continue as prescribed) Lisinopril 10 MG Oral Tablet 08/04/2023 Provider: BRAVO DILL NP Diagnosis: Last Documented On 09/26/2023 7:15PM By Mireya Carrillo MA ; [facility] Nexplanon 68 MG Subcutaneous Implant 07/14/2023 Prov ider: Diagnosis: Last Documented On 07/14/2023 4:40PM By Mireya Carrillo MA ; [facility] Vitamin D (Ergocalciferol) 55624 UNIT Oral Capsule Provider: Diagnosis: once weekly Last Documented On 2 12:03PM By BYRON SCOTT ; [facility] GoodSense Vitamins 28-0.8 MG Oral Tablet 12/24 Provider: Diagnosis: PRN Last Documented On 2 11:22AM By BYRON SCOTT ; [facility] EQ Ibuprofen 200 MG Oral Tablet 09/17/2019 Provider: Diagnosis: 3 tablets Q8H Last Documented On 0 3:05PM By Pili ANDERSONC ; [facility] Tylenol 325MG Oral Tablet 02/08/2019 Provider: Diagnosis: PRN-fever & pain Last Documented On 9 10:29AM By BYRON SCOTT ; [facility] Singulair 10MG Oral Tablet 10/14/2017 Provider: SHANT Samaniego Diagnosis: Allergic rhiniti s due to pollen One tablet daily Last Documented On 8 2:46PM By SHANT STRATTON PA-C ; [facility] ProAir HFA 108 (90 Base)MCG/ ACT Inhalation Aerosol Solution 08/24/2017 Provider: PILI GARZA [facility] Diagnosis: Wheezing use as directed 2 puffs every 4-6 hours as neede d Last Documented On 7 1:23PM By PILI CALIXTO [facility] ; [facility] Medications Administered Includes: Administered [...] 99 Last Documented: On 09/26/2023 7:17PM ; [facility] Results Includes: Results discussed [...] 09/26/2023 Last Documented On 4 7:33PM ; [facility] Smoking Status Unknown Procedures and Surgical History Includes: Procedures from this encounter Procedures Code Diagnosis Performing Provider Service L ocation Service Date Pt to use prescription as ordered. Purpose of and use of medication discussed.~ Last Documented On 4 7:30PM ; [facility] Pt to use OTC fever/pain product as need ed per product instruction.~ Last Documented On 4 7:30PM ; [facility] use of tobacco assessment performed 1000F Last Documented On 4 7:16PM ; [facility] review of medications documented 1160F Last Documented On 4 7:30PM ; [facility] Clinical summary provided to patient Last Documented On 4 7:30PM ; [facility] Medical History Includes: Medical History addressed [...] Documented On 4 7:16PM ; [facility] Penicillins Allergy Skin Rashes / Er uption of skin, Shortness of Breath / Dyspnea, keflex is ok 06/09/2013 Active Last Documented On 4 7:16PM ; [facility] Macrobid Allergy Skin Rashes / Eruption of skin, Nausea 0 03/07/2015 Active Last Documented On 4 7:16PM ; [facility] Doxycycline Hyclate Allergy Skin Rashes / Eruption of skin, Hives / Urticaria 07/08/2013 Active Last Documented On 4 7:16PM ; [facility] Amoxicillin Allergy Skin Rashes / Er uption of skin, Shortness of Breath / Dyspnea, does have epi pen 03/07/2015 Acti ve Last Documented On 4 7:16PM ; [facility] Encounters Encounter Provider Location Date Check-In Time Check-Out Time Diagnosis COVID SICK VISIT- ESTABLISHED PATIENT TONYA FUENTES DNP [facility] 09/26/19 24 6:54PM 7:30PM Pharyngitis Acute Insurance Includes: Active Insurance Policies Plan Name Member ID Group # Subscriber Relationship Effect krishna Dates 1 - [facility] [id number] GARRY SPANGLER Yumiko horace 2 - MEDICAID [place] [facility] [id number] JESSICA SPANGLER Self Clinical Notes Includes: Clinical Notes from this encounter * Progress note Date Encounter Last Documented by 09/26/2023 COVID SICK VISIT- ESTABLISHED PA SAMUELNT Last documented on 09/26/2023; 7:33 PM, TONYA FUENTES DNP; [facility] Chief Complaint The Chief Complaint is: [...]
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
--- OUTSIDE RECORDS SUMMARY | 2025-06-18 19:30 | XMS_ITS | Clinical Summary ---
Author Organization [facility] Address [address] [place] [address] Phone Care Team Providers Care Sales Service Rep Name Role Phone MAIKEL ARREDONDO, ROSSY Holland Primary Care Provider [phone] Reason for Visit and Chief Complaint The Chief Complaint is: cough, headache, sore throat Problems Includes: Problems addressed during this encounter and other active Problems All Visits Onset Date Resolved Date Provider Condition S tatus 07/12/2022 ALYSSA MONTANO HONEY PROCESSOR-C Act krishna Last Documented On 2 9:34AM ; [facility] 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 Migrainosus 07/12/2015 FELIPA DAVIS HONEY PROCESSOR-BC Active Last Documented On 5 6:11PM ; [facility] Note: Unchanged Plan of Treatment - Return to the clinic if condition worsens or new symptoms arise - Last Documented On 09/24/2023 12:15PM ; [facility] - Patient will call for appointment as needed - Last Documented On 09/24/2023 12:15PM ; [facility] Instructions to patient Instructions for patient Last Documented On 4 12:08PM ; [facility] Intervention and counseling on cessation of tobacco use Last Documented On 4 8:59AM ; [facility] Assessments Includes: Assessments from this encounter Findings - [J06.9 - Acute upper respiratory infection, unspecified] Acute upper respiratory infection - Last Documented On 09/24/2023 12:15PM ; [facility] Instructions Includes: Instructions from this encounter Instructions to patient Instructions for patient Last Documented On 4 12:08PM ; [facility] Intervention and counseling on cessation of tobacco use Last Documented On 4 8:59AM ; [facility] Medical Equipment - Implanted Devices Includes: Current Devices No Medical Equipment Recorded Medications Includes: Medications discussed during this encounter and other current Medications Current Medications (continue as prescribed) Lisinopril 10 MG Oral Tablet 08/04/2023 Provider: BRAVO DILL NP Diagnosis: Last Documented On 09/26/2023 7:15PM By Mireya Carrillo MA ; [facility] Nexplanon 68 MG Subcutaneous Implant 07/14/2023 Prov ider: Diagnosis: Last Documented On 07/14/2023 4:40PM By Mireya Carrillo MA ; [facility] Vitamin D (Ergocalciferol) 69039 UNIT Oral Capsule Provider: Diagnosis: once weekly Last Documented On 2 12:03PM By BYRON SCOTT ; [facility] GoodSense Vitamins 28-0.8 MG Oral Tablet 12/24 Provider: Diagnosis: PRN Last Documented On 2 11:22AM By BYRON SCOTT ; [facility] EQ Ibuprofen 200 MG Oral Tablet 09/17/2019 Provider: Diagnosis: 3 tablets Q8H Last Documented On 0 3:05PM By Pili Vasques HONEY PROCESSOR-C ; [facility] Tylenol 325MG Oral Tablet 02/08/2019 Provider: Diagnosis: PRN-fever & pain Last Documented On 9 10:29AM By BYRON SCOTT ; [facility] Singulair 10MG Oral Tablet 10/14/2017 Provider: SHANT Samaniego Diagnosis: Allergic rhiniti s due to pollen One tablet daily Last Documented On 8 2:46PM By SHANT STRATTON PA-C ; [facility] ProAir HFA 108 (90 Base)MCG/ ACT Inhalation Aerosol Solution 08/24/2017 Provider: PILI GARZA HONEY PROCESSOR-BC Diagnosis: Wheezing use as directed 2 puffs every 4-6 hours as neede d Last Documented On 7 1:23PM By PILI MAYES- ; [facility] Medications Administered Includes: Administered Medications from this encounter No Administered Medications Recorded Vital Signs Includes: Vital Signs from this encounter Vital Name 09/24/2023 08:58A Pulse Rate-Sitting (bpm) 85 Temp-Oral (F) 98.1 Height (in) 62 Weight (lb) 263 Body Mass Index 48.1 Body Surface Area 2.1 Oxygen Saturation (%) 97 Last Documented: On 09/24/2023 8:59AM ; [facility] Results Includes: Results discussed during this encounter Group A strep [facility] Ordered by EZE VICKERS APRN on 2023 Collected: Reported: 09/24/2023 09:02 Last Documented On 4 9:02AM ; [facility] Reviewed on 09/24/2023; All test results are final unless otherwise noted. Rapid Strep neg N (Normal) Last Documented On 4 9:02AM ; [facility] LOT # AND EXP. DATE [id number] 05/25/26 N (Normal) Last Documented On 4 9:02AM ; [facility] INT. QC ACCEPTABLE? yes N (Normal) Last Documented On 4 9:02AM ; [facility] History of Present Illness Includes: History of [...] 09/24/2023 Last Documented On 4 12:15PM ; [facility] Smoking Status Unknown Procedures and Surgical History Includes: Procedures from this encounter Procedures Code Diagnosis Performing Provider Service L ocation Service Date intervention and counseling on cessation of tobacco use 4000F Last Documented On 4 8:59AM ; [facility] use of tobacco assessment performed 1000F Last Documented On 4 8:59AM ; [facility] review of medications documented 1160F Last Documented On 4 8:59AM ; [facility] Patient verbalizes understanding Last Documented On 4 12:08PM ; [facility] Increase fluids Last Documented On 4 12:08PM ; [facility] Clinical summary provided to patient Last Documented On 4 12:08PM ; [facility] Medical History Includes: Medical History addressed during this encounter Description Last Updated Not taking OTC medications 09/24/2023 Last Documented On 4 12:15PM ; [facility] Family History Includes: Family History [...] Active Last Documented On 4 7:16PM ; [facility] Penicillins Allergy Skin Rashes / Er uption of skin, Shortness of Breath / Dyspnea, keflex is ok 06/09/2013 Active Last Documented On 4 7:16PM ; [facility] Macrobid Allergy Skin Rashes / Eruption of skin, Nausea 0 03/07/2015 Active Last Documented On 4 7:16PM ; [facility] Doxycycline Hyclate Allergy Skin Rashes / Eruption of skin, Hives / Urticaria 07/08/2013 Active Last Documented On 4 7:16PM ; [facility] Amoxicillin Allergy Skin Rashes / Er uption of skin, Shortness of Breath / Dyspnea, does have epi pen 03/07/2015 Acti ve Last Documented On 4 7:16PM ; [facility] Encounters Encounter Provider Location Date Check-In Time Check-Out Time Diagnosis COVID SICK VISIT- ESTABLISHED PATIENT EZE VICKERS APRN [facility] 09/24/19 24 8:49AM 9:46AM Upper Respiratory Infection Acute Insurance Includes: Active Insurance Policies Plan Name Member ID Group # Subscriber Relationship Effect krishna Dates 1 - [facility] [id number] GARRY SPANGLER horace 2 - MEDICAID [place] [facility] [id number] JESSICA SPANGLER Self Clinical Notes Includes: Clinical Notes from this encounter * Progress note Date Encounter Last Documented by 09/24/2023 COVID SICK VISIT- ESTABLISHED PA SAMUELNT Last documented on 09/24/2023; 12:15 PM, EZE VICKERS APRN; [facility] Chief Complaint The Chief Complaint is: Cough, [...] neg Normal LOT # AND EXP. DATE [id number] 05/25/26 Normal INT. QC ACCEPTABLE? yes Normal [...]
--- OUTSIDE RECORDS SUMMARY | 2025-06-18 19:30 | XMS_ITS | Clinical Summary ---
Author Organization [facility] Address [address] [place] [address] Phone Care Team Providers Care Dental Mold Maker Name Role Phone Unavailable Primary Care Provider [...] on file Legal Sex Female 2:50 PM CLIENT SALES AND SERVICE OFFICER Gender Identity Not on file Sexual Orientation Not on file Last Filed Vital Signs Vital Sign Reading Time Taken Comments Blood Pressure 108/70 10/20/2023 10:49 AM CLIENT SALES AND SERVICE OFFICER Pulse 96 10/20/2023 10:49 AM CLIENT SALES AND SERVICE OFFICER Temperature 36.1 C (97 F) 10/20/2023 10:49 AM CLIENT SALES AND SERVICE OFFICER Respiratory Rate 20 10/20/2023 10:49 AM CLIENT SALES AND SERVICE OFFICER Oxygen Saturation 97% 10/20/2023 10:49 AM CLIENT SALES AND SERVICE OFFICER Inhaled Oxygen Concentration - - Weight 109.3 kg (241 lb) 10/01/2021 1:53 PM CLIENT SALES AND SERVICE OFFICER Height 157.5 cm (5' 2) 10/01/2021 1:53 PM CLIENT SALES AND SERVICE OFFICER Body Mass Index 44.08 10/01/2021 1:53 PM CLIENT SALES AND SERVICE OFFICER Plan of Treatment Health Maintenance Due Date [...] to complete this topic Insurance MEDICAID [place] [id number]
--- OUTSIDE RECORDS SUMMARY | 2025-06-18 19:30 | XMS_ITS | Encounter Summary ---
Author Organization [facility] Address [address] [place] [address] Care Team Providers Care Ticket Dispatcher Name Role Phone Los Luque MD Primary Care Provider [phone] Tucker Esquivel MD, Baldomero Malik Unavailable [phone] Encounter Details Date Type Department Care Team (Late Contact Info) Description 06/09/2025 Results [facility] [address] [place] [address] Natividad Newberry, MEGHA [address] [place] [address] XR Elbow Left 3+ Vw Social History Tobacco Use Types Packs/Day Years Used Date Smoking Tobacco: Never Smokeless Tobacco: Never Alcohol Use Standard Drinks/Week Comments No 0 (1 standard drink = 0.6 oz pur e alcohol) [facility] Utilities Answer Date Recorded In the past 12 months has e [employer], gas, oil, or water [employer] threatened to shut off services in your [...] often do you attend chur ch or christian services? Never 11/02/2024 Do you belong to any clubs o r organizations such as holiness groups, unions, fraternal or athletic groups, or [...] staff should administer the PHQ-9) 0 04/12/2025 [facility] - Occupational Stress [...] the past [address] [facility], were you homeless or living in a halfway (including now)? No 11/02/2024 Personal Safety Answer [...] AM CDT documented as of this encounter Miscellaneous Notes * Telephone Encounter - Veronika Mayfield MA - 06/14/2025 8:24 AM CDT Can you please advise on next steps? Thanks. It does look like pt has a follow up scheduled for 06/21/25 documented in this encounter Plan of Treatment Not on file documented as of this encounter Visit Diagnoses Not on filedocumented in this encounter Care Teams Ticket Dispatcher Relationship Specialty Start Date End Date Los Luque MD [address] [address] PCP - General Family Medicine 01/07/22 [place] [address] [place] [address] Consulting Physician Orthopedic Surgery 01/22/24 documented as of this encounter
--- OUTSIDE RECORDS SUMMARY | 2025-06-18 19:30 | XMS_ITS ---
Care Plan - [facility] Created on: June 18, 2025 ANÍBAL JESSICA Holland : 1995 Sex: Female Author Organization [facility] Address [address] [place] [address] Phone Care Team Providers Care Manager Of Quality Name Role Phone MAIKEL ARREDONDO, ROSSY Holland Primary Care Provider [phone]
--- OUTSIDE RECORDS SUMMARY | 2025-06-18 19:31 | XMS_ITS ---
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 07/12/2015 FELIPA Ashley RIVERARIG [employer] POLIC[employer] SPECIALIST-BC Active Last Documented On 5 6:11PM ; [facility] Note: Unchanged Conjunctivitis Mucopurulent 07/12/2015 Unknown FELIPA A KAHRIG [employer] POLICY SPECIALIST-BC Resolved Last Documented On 6 4:03PM ; [facility] Note: Unchanged Plan of Treatment Findings Encounter Date Ordered return to the clinic if condition worsens or new symptoms arise COVID SICK VISIT- ESTABLISHED PATIENT with KRYSTAL FUENTES DNP 09/26/2023 Last Documented On 4 7:33PM ; [facility] Ordered patient will call fo r appointment as needed COVID SICK VISIT- ESTABLISHED PATIENT with EZE VICKERS APRN 09/24/2023 Last Documented On 4 12:15PM ; [facility] Ordered return to the clinic if condition worsens or new symptoms arise COVID SICK VISIT- ESTABLISHED PATIENT with EZE VICKERS HANDBAG FRAMER 09/24/2023 Last Documented On 4 12:15PM ; [facility] The options include close observation CO VID SICK VISIT- ESTABLISHED PATIENT with CANDY MONTANO [employer] POLICY SPECIALIST-C 07/14/2023 Last Documented On 3 5:30PM ; [facility] Watch for signs/symptoms of infection, return to the clinic if seen COVID SICK VISIT- ESTABLISHED PATIENT with CANDY MONTANO [employer] POLIC[employer] SPECIALIST-C 07/14/2023 Last Documented On 3 5:30PM ; [facility] Ordered patient will call fo r appointment as needed COVID SICK VISIT- ESTABLISHED PATIENT with PILI CALIXTO [employer] POLICY SPECIALIST-BC 07/12/2023 Last Documented On 3 1:41PM ; [facility] Ordered return to the clinic if condition worsens or new symptoms arise COVID SICK VISIT- ESTABLISHED PATIENT with PILI CALIXTO [employer] POLICY SPECIALIST-BC 07/12/2023 Last Documented On 3 1:41PM ; [facility] Ordered patient will call fo r appointment as needed COVID SICK VISIT- ESTABLISHED PATIENT with PILI CALIXTO [employer] POLICY SPECIALIST-BC 07/26/2022 Last Documented On 2 10:28AM ; [facility] Ordered return to the clinic if condition worsens or new symptoms arise COVID SICK VISIT- ESTABLISHED PATIENT with PILI CALIXTO [employer] POLICY SPECIALIST-BC 07/26/2022 Last Documented On 2 10:28AM ; [facility] Continue current medication COVID SICK V ISIT- ESTABLISHED PATIENT with CANDY MONTANO [employer] POLICY SPECIALIST-C 07/12/2022 Last Documented On 2 10:46AM ; [facility] The options include close observation CO VID SICK VISIT- ESTABLISHED PATIENT with CANDY MONTANO [employer] POLICY SPECIALIST-C 07/12/2022 Last Documented On 2 10:46AM ; [facility] Ordered follow-up visit in 1 -2 weeks with an office visit or sooner if symptoms persist or worsen COVID SICK VISIT- ESTABLISHED PATIENT with PILI CALIXTO [employer] POLICY SPECIALIST-BC 08/22/2021 Last Documented On 1 6:26PM ; [facility] Ordered patient to call if ashley hoyos develops COVID SICK VISIT- ESTABLISHED PATIENT with PILI CALIXTO [facility]- 08/22/2021 Last Documented On 1 6:26PM ; [facility] Ordered return to the clinic if condition worsens or new symptoms arise COVID SICK VISIT- ESTABLISHED PATIENT with PILI CALIXTO [facility]- 08/22/2021 Last Documented On 1 6:26PM ; [facility] Ordered Clinical summary pro vided to patient . Plan discussed and patient/parent/caregiver states understanding 1 MONTH CHECK with RODDY DELAROSA PA-C 12/22/2019 Last Documented On 0 11:18AM ; [facility] Ordered follow-up visit as n eeded with an office visit. Wean off the Topamax for now and see how your headaches and stomach goes. May need to switch to propranolol if headaches become severe. Discussed symptoms could be due to OCPs. May need to discuss switching with your OVERSEER KOSHER KITCHEN. Call sooner if needed 1 MONTH CHECK with RODDY DELAROSA PA-C 12/22/2019 Last Documented On 0 11:18AM ; [facility] Ordered Clinical summary pro vided to patient . Plan discussed and patient/parent/caregiver states understanding PROBLEM VISIT with RODDY DELAROSA PA-C 11/29/2019 Last Documented On 0 11:11AM ; [facility] Ordered follow-up visit 1 mo . Labs today. Will get MRI of head. See Ophthalmology. Call sooner if needed PROBLEM VISIT with RODDY DELAROSA PA-C 11/29/2019 Last Documented On 0 11:11AM ; [facility] Ordered Clinical summary pro vided to patient OVERSEER KOSHER KITCHEN EXAM with RUTHANN ROMANO RN [facility] 11/17/2019 Last Documented On 0 11:49AM ; [facility] Ordered weight loss diet OVERSEER KOSHER KITCHEN EXAM with RUTHANN AGUILAR RN [facility] 11/17/2019 Last Documented On 0 11:49AM ; [facility] Ordered Clinical summary pro vided to patient . Plan discussed and patient/parent/caregiver states understanding SICK VISIT with RODDY DELAROSA PA-C 10/18/2019 Last Documented On 0 4:02PM ; [facility] Ordered follow-up visit as n eeded with an office visit. Finish z pack. Go to ER if breathing worsens. Seek medical care if symptoms worsen/new symptoms arise SICK VISIT with RODDY DELAROSA PA-C 10/18/2019 Last Documented On 0 4:02PM ; [facility] Ordered follow-up visit in 1 -2 weeks with an office visit or sooner if symptoms persist or worsen WALK-IN CLINIC SICK VISIT with PILI CALIXTO [facility] 10/16/2019 Last Documented On 0 1:07PM ; [facility] Ordered patient to call if ashley hoyos develops WALK-IN CLINIC SICK VISIT with PILI CALIXTO [facility] 10/16/2019 Last Documented On 0 1:07PM ; [facility] Ordered return to the clinic if condition worsens or new symptoms arise WALK-IN CLINIC SICK VISIT with PILI CALIXTO [facility] 10/16/2019 Last Documented On 0 1:07PM ; [facility] Ordered Clinical summary pro vided to patient . Plan discussed and patient/parent/caregiver states understanding 1 WK CK-UP with RODDY DELAROSA PA-C 09/24/2019 Last Documented On 0 2:08PM ; [facility] Ordered follow-up visit 2 we eks. Take 800mg ibuprofen twice a day for 2 wks. Alternate local ice/heat during the day. Cont ankle brace during the day and off at night. Cont physical therapy. Discussed MRI if pain continues in 2 weeks. Call sooner if needed 1 WK CK-UP with RODDY DELAROSA PA-C 09/24/2019 Last Documented On 0 2:08PM ; [facility] Clinical summary provided to patient PRO BLEM VISIT with PILI SANDOVAL [facility] 09/17/2019 Last Documented On 0 3:12PM ; [facility] Plan of care reviewed and agreed to PROB CHANDU VISIT with PILI SANDOVAL [facility] 09/17/2019 Last Documented On 0 3:12PM ; [facility] Ordered Clinical summary pro vided to patient . Plan discussed and patient/parent/caregiver states understanding PROBLEM VISIT with RODDY DELAROSA PA-C 07/30/2019 Last Documented On 9 6:39PM ; [facility] Ordered follow-up visit as n [...] 07/30/2019 Last Documented On 9 6:39PM ; [facility] Ordered Clinical summary pro vided to patient . Plan discussed and patient/parent/caregiver states understanding PROBLEM VISIT with RODDY DELAROSA PA-C 07/14/2019 Last Documented On 9 5:17PM ; [facility] Ordered follow-up visit as n eeded with an office visit. Drink more water. Urinate often. Labs today. Will get ultrasound of your kidneys and gallbladder---checking for stones. Ranitidine for the acid/indigestion. Call sooner if needed. Go to ER if pain becomes severe PROBLEM VISIT with RODDY DELAROSA PA-C 07/14/2019 Last Documented On 9 5:17PM ; [facility] Ordered Clinical summary pro vided to patient . Plan discussed and patient/parent/caregiver states understanding CHECK UP with RODDY DELAROSA PA-C 02/16/2019 Last Documented On 9 10:51AM ; [facility] Ordered follow-up visit as n eeded with an office visit. Repeat labs today and will go from there. Tylenol/ibuprofen as needed for pain. Push fluids, stay hydrated. Stool softeners/laxatives as needed for constipation. Call sooner if needed CHECK UP with RODDY DELAROSA PA-C 02/16/2019 Last Documented On 9 10:51AM ; [facility] Ordered referred to primary care physician WALK-IN CLINIC SICK VISIT with PILI MERCADO 02/10/2019 Last Documented On 9 11:16AM ; [facility] Ordered Transition in care, clinical summary provided WALK-IN CLINIC SICK VISIT with PILI CALIXTO [facility]- 02/10/2019 Last Documented On 9 11:16AM ; [facility] Ordered follow-up visit as n eeded with an office visit if symptoms persist or worsen WALK-IN CLINIC SICK VISIT with PILI CALIXTO [facility]- 11/05/2018 Last Documented On 9 9:17AM ; [facility] Ordered patient to call if ashley hoyos develops WALK-IN CLINIC SICK VISIT with PILI CALIXTO [facility]- 11/05/2018 Last Documented On 9 9:17AM ; [facility] Ordered referred to primary care physician WALK-IN CLINIC SICK VISIT with PILI CALIXTO [facility]- 11/05/2018 Last Documented On 9 9:17AM ; [facility] Ordered return to the clinic if condition worsens or new symptoms arise WALK-IN CLINIC SICK VISIT with PILI CALIXTO [facility]- 11/05/2018 Last Documented On 9 9:17AM ; [facility] Ordered Transition in care, clinical summary provided WALK-IN CLINIC SICK VISIT with PILI CALIXTO [facility]- 11/05/2018 Last Documented On 9 9:17AM ; [facility] Ordered patient will call fo r appointment as needed WALK-IN CLINIC SICK VISIT with CANDACE GUERRERO [facility]- 11/03/2018 Last Documented On 9 3:24PM ; [facility] Ordered return to the clinic if condition worsens or new symptoms arise WALK-IN CLINIC SICK VISIT with CANDACE GUERRERO [facility]- 11/03/2018 Last Documented On 9 3:24PM ; [facility] Ordered Clinical summary pro vided to patient OVERSEER KOSHER KITCHEN EXAM with RUTHANN ROMANO RN [facility] 09/01/2018 Last Documented On 9 2:27PM ; [facility] Ordered follow-up visit in 1 -2 weeks with an office visit or sooner if symptoms persist or worsen WALK-IN CLINIC SICK VISIT with PILI CALIXTO [facility]- 07/01/2018 Last Documented On 8 12:16PM ; [facility] Ordered patient to call if ashley hoyos develops WALK-IN CLINIC SICK VISIT with PILI CALIXTO [facility]- 07/01/2018 Last Documented On 8 12:16PM ; [facility] Ordered referred to primary care physician WALK-IN CLINIC SICK VISIT with PILI CALIXTO [facility]- 07/01/2018 Last Documented On 8 12:16PM ; [facility] Ordered return to the clinic if condition worsens or new symptoms arise WALK-IN CLINIC SICK VISIT with PILI CALIXTO [facility]- 07/01/2018 Last Documented On 8 12:16PM ; [facility] Ordered Transition in care, clinical summary provided WALK-IN CLINIC SICK VISIT with PILI CALIXTO [facility]- 07/01/2018 Last Documented On 8 12:16PM ; [facility] Ordered DNA probe for Neisse conrad gonorrhoeae and Chlamydia trachomatis 1 MONTH CHECK with CAROL PANG MD 03/17/2018 Last Documented On 8 11:13AM ; [facility] Post Concussion activity exp lained. Rest including brain rest, NO screen time. Once headache free for 24 hours may slowly advance activty PROBLEM VISIT with SHANT STRATTON PA-C 02/10/2018 Last Documented On 8 2:18PM ; [facility] Ordered return to the clinic if condition worsens or new symptoms arise PROBLEM VISIT with SHANT STRATTON PA-C 02/10/2018 Last Documented On 8 2:18PM ; [facility] Go to the emergency room if condition worsens WALK-IN CLINIC SICK VISIT with PILI CALIXTO [facility]- 11/24/2017 Last Documented On 8 4:05PM ; [facility] Ordered analgesics (non-ster oidal anti-inflammatory agents) WALK-IN CLINIC SICK VISIT with PILI CALIXTO [facility]- 11/24/2017 Last Documented On 8 4:05PM ; [facility] Ordered follow-up visit as n eeded with an office visit. WALK-IN CLINIC SICK VISIT with PILI CALIXTO [facility]- 11/24/2017 Last Documented On 8 4:05PM ; [facility] Ordered home range of motion exercises W ALK-IN CLINIC SICK VISIT with PILI CALIXTO [employer]DI[employer] POLICY SPECIALIST-BC 11/24/2017 Last Documented On 8 4:05PM ; [facility] Ordered moist heat WALK-IN CLINIC SICK VISIT wit h PILI CALIXTO AMER[employer]DIAN POLICY SPECIALIST-BC 11/24/2017 Last Documented On 8 4:05PM ; [facility] Ordered referred to primary care physician WALK-IN CLINIC SICK VISIT with PILI CALIXTO AMER[employer]DIAN POLICY SPECIALIST-BC 11/24/2017 Last Documented On 8 4:05PM ; [facility] Ordered Transition in care, clinical summary provided WALK-IN CLINIC SICK VISIT with PILI CALIXTO AMER[employer]DIAN POLICY SPECIALIST-BC 11/24/2017 Last Documented On 8 4:05PM ; [facility] Continue current medication but instructed to take mobic in the morning and see how evening pain is. Encouraged to diet and exercise and continue with physical therapy exercises CHECK UP with SHANT STRATTON PA-C 09/12/2017 Last Documented On 8 2:09PM ; [facility] Ordered acetaminophen CHECK UP with SHANT HOWELL PA-C 09/12/2017 Last Documented On 8 2:09PM ; [facility] Ordered analgesics (non-ster oidal anti-inflammatory agents) CHECK UP with SHANT AREVALO-C 09/12/2017 Last Documented On 8 2:09PM ; [facility] Ordered home range of motion exercises C HECK UP with SHANT AREVALO-Nara 09/12/2017 Last Documented On 8 2:09PM ; [facility] Ordered moist heat CHECK UP with SAHNT AREVALO-Nara 09/12/2017 Last Documented On 8 2:09PM ; [facility] Ordered return to the clinic if condition worsens or new symptoms arise CHECK UP with SHANT AREVALO-Nara 09/12/2017 Last Documented On 8 2:09PM ; [facility] Go to the emergency room if condition worsens WALK-IN CLINIC SICK VISIT with PILI JAYP-BC 08/24/2017 Last Documented On 7 1:27PM ; [facility] Ordered referred to primary care physician WALK-IN CLINIC SICK VISIT with PILI CALIXTO [facility] 08/24/2017 Last Documented On 7 1:27PM ; [facility] Ordered return to the clinic if condition worsens or new symptoms arise WALK-IN CLINIC SICK VISIT with PILI CALIXTO [facility] 08/24/2017 Last Documented On 7 1:27PM ; [facility] Ordered Transition in care, clinical summary provided WALK-IN CLINIC SICK VISIT with PILI CALIXTO [facility] 08/24/2017 Last Documented On 7 1:27PM ; [facility] Ordered analgesics (non-ster oidal anti-inflammatory agents) CHECK UP with SHANT Bud KIMPRICH PA-C 07/02/2017 Last Documented On 8 3:21PM ; [facility] Ordered home range of motion exercises C HECK UP with SHANT Bud KIMPRICH PA-C 07/02/2017 Last Documented On 8 3:21PM ; [facility] Ordered moist heat CHECK UP with SHANT Bud ZIPPR ICH PA-C 07/02/2017 Last Documented On 8 3:21PM ; [facility] Ordered return to the clinic if condition worsens or new symptoms arise CHECK UP with SHANT Bud KIMPRICH PA-C 07/02/2017 Last Documented On 8 3:21PM ; [facility] Ordered work restrictions ma y return to work with no no restrictions CHECK UP with SHANT Bud KIMPRICH PA-C 07/02/2017 Last Documented On 8 3:21PM ; [facility] Ordered analgesics (non-ster oidal anti-inflammatory agents) CHECK UP with SHANT Bud KIMPRICH PA-C 06/18/2017 Last Documented On 7 1:48PM ; [facility] Ordered home range of motion exercises C HECK UP with SHANT Bud KIMPRICH PA-C 06/18/2017 Last Documented On 7 1:48PM ; [facility] Ordered moist heat CHECK UP with SHANT Bud ZIPPR ICH PA-C 06/18/2017 Last Documented On 7 1:48PM ; [facility] Ordered return to the clinic if condition worsens or new symptoms arise CHECK UP with SHANT KIMPRICH PA-C 06/18/2017 Last Documented On 7 1:48PM ; [facility] Ordered work restrictions ma y return to work with no lifting over 10 lbs x 2 more weeks CHECK UP with SHANT KIMPRICH PA-C 06/18/2017 Last Documented On 7 1:48PM ; [facility] Ordered analgesics (non-ster oidal anti-inflammatory agents) CHECK UP with SHANT KIMPRICH PA-C 06/04/2017 Last Documented On 7 9:07AM ; [facility] Ordered home range of motion exercises C HECK UP with SHANT KIMPRICH PA-C 06/04/2017 Last Documented On 7 9:07AM ; [facility] Ordered moist heat CHECK UP with SHANT KIMPR ICH PA-C 06/04/2017 Last Documented On 7 9:07AM ; [facility] Ordered return to the clinic if condition worsens or new symptoms arise CHECK UP with SHANT KIMPRICH PA-C 06/04/2017 Last Documented On 7 9:07AM ; [facility] Ordered work restrictions ma y return to work with no lifting over 10 lbs CHECK UP with SHANT KIMPRICH PA-C 06/04/2017 Last Documented On 7 9:07AM ; [facility] Ordered analgesics (non-ster oidal anti-inflammatory agents) EMERGENCY ROOM FOLLOW UP with SHANT KIMPRICH PA-C 05/26/2017 Last Documented On 7 10:14PM ; [facility] Ordered home range of motion exercises EMERGENCY ROOM FOLLOW UP with SHANT KIMPRICH PA-C 05/26/2017 Last Documented On 7 10:14PM ; [facility] Ordered moist heat EMERGENCY ROOM FOLLOW UP with SHANTTHANH KIMPRICH PA-C 05/26/2017 Last Documented On 7 10:14PM ; [facility] Ordered return to the clinic if condition worsens or new symptoms arise EMERGENCY ROOM FOLLOW UP with SHANT D VIRAL GRIFFITH 05/26/2017 Last Documented On 7 10:14PM ; [facility] Ordered work restrictions OF F WORK X 2 MORE WEEKS EMERGENCY ROOM FOLLOW UP with SHANT Farrell VIRAL GRIFFITH 05/26/2017 Last Documented On 7 10:14PM ; [facility] Ordered return to the clinic if condition worsens or new symptoms arise EMERGENCY ROOM FOLLOW UP with SHANTTHANH STRATTON PA-C 05/20/2017 Last Documented On 7 10:44AM ; [facility] Pt to use prescription as or dered. Purpose of and use of medication discussed. WALK-IN CLINIC SICK VISIT with FELIPA DAVIS [facility] 03/02/2017 Last Documented On 7 5:47PM ; [facility] Ordered disposition - Discus sed etiology and course of atopic dermatitis. Discussed limiting bathing and using oily soaps. Also discussed need for lubrication of skin on a regular basis, with intermittent use of topical steroids or topical immune modulator creams WALK-IN CLINIC SICK VISIT with PILI CALIXTO [facility] 12/04/2016 Last Documented On 7 10:53AM ; [facility] Ordered follow-up visit 5-7 days if symptoms persist or worsen WALK-IN CLINIC SICK VISIT with PILI CALIXTO [facility] 12/04/2016 Last Documented On 7 10:53AM ; [facility] Ordered referred to primary care physician WALK-IN CLINIC SICK VISIT with PILI CALIXTO [facility] 12/04/2016 Last Documented On 7 10:53AM ; [facility] Ordered return to the clinic if condition worsens or new symptoms arise WALK-IN CLINIC SICK VISIT with PILI CALIXTO [facility] 12/04/2016 Last Documented On 7 10:53AM ; [facility] Ordered Transition in care, clinical summary provided WALK-IN CLINIC SICK VISIT with PILI CALIXTO [facility] 12/04/2016 Last Documented On 7 10:53AM ; [facility] Ordered return to the clinic if condition worsens or new symptoms arise PROBLEM VISIT with SHANT STRATTON PA-C 11/20/2016 Last Documented On 7 3:44PM ; [facility] Pt to use prescription as or dered. Purpose of and use of medication discussed. WALK-IN CLINIC SICK VISIT with FELIPA Ashley DAVIS [facility] 10/07/2016 Last Documented On 7 1:10PM ; [facility] Ordered patient will call fo r appointment as needed WALK-IN CLINIC SICK VISIT with KRYSTAL GANN [facility] 09/16/2016 Last Documented On 7 2:10PM ; [facility] Ordered follow-up visit as n eeded with an office visit if symptoms persist or worsen SICK VISIT with PILI CAL[facility]TO [facility] [facility] 07[facility]04/2016 Last Documented On 6 4:55PM ; [facility] Ordered patient to call if p roblem develops SICK VISIT with PILI CALIXTO [facility]- 07/04/2016 Last Documented On 6 4:55PM ; [facility] Ordered referred to primary care physician SICK VISIT with PILI CALIXTO [facility]- 07/04/2016 Last Documented On 6 4:55PM ; [facility] Ordered return to the clinic if condition worsens or new symptoms arise SICK VISIT with PILI CALIXTO [facility]- 07/04/2016 Last Documented On 6 4:55PM ; [facility] Ordered Transition in care, clinical summary provided SICK VISIT with PILI CALIXTO [facility]- 07/04/2016 Last Documented On 6 4:55PM ; [facility] Ordered follow-up visit as n eeded with an office visit if symptoms persist or worsen SICK VISIT with KRYSTAL GANN [facility]- 01/13/2016 Last Documented On 6 2:26PM ; [facility] Ordered follow-up visit in 2 -3 days with an office visit SICK VISIT with KRYSTAL GANN [facility] 01/13/2016 Last Documented On 6 2:26PM ; [facility] Ordered patient to call if p roblem develops SICK VISIT with KRYSTAL GANN [facility] 01/13/2016 Last Documented On 6 2:26PM ; [facility] Ordered return to the clinic if condition worsens or new symptoms arise SICK VISIT with KRYSTALEliezer GANN [employer]-C 01/13/2016 Last Documented On 6 2:26PM ; [facility] Ordered follow-up visit in 3 -5 days with an office visit. With PCP SICK VISIT with FELIPA DAVIS [employer]IC[employer] SPECIALIST-BC 11/10/2015 Last Documented On 6 1:59PM ; [facility] Ordered patient to call if ashley hoyos develops SICK VISIT with MONO DURBIN PA-C 10/30/2015 Last Documented On 6 12:44PM ; [facility] Ordered return to the clinic if condition worsens or new symptoms arise SICK VISIT with MONO DURBIN PA-C 10/30/2015 Last Documented On 6 12:44PM ; [facility] Ordered return to the clinic if condition worsens or new symptoms arise SICK VISIT with SHANT AREVALO-C 10/24/2015 Last Documented On 6 10:33AM ; [facility] Ordered follow-up visit in 1 month with an office visit. F/U with PCP PROBLEM VISIT with FELIPA DAVIS [employer] POLIC[employer] SPECIALIST-BC 07/12/2015 Last Documented On 5 4:11PM ; [facility] Ordered return to the clinic if condition worsens or new symptoms arise COnt with referral to [facility] GENERAL OFFICE VISIT with SHANT AREVALO-C 06/14/2015 Last Documented On 5 1:50PM ; [facility] Ordered return to the clinic if condition worsens or new symptoms arise COnt with referral to [facility] PROBLEM VISIT with SHANT AREVALO-C 05/26/2015 Last Documented On 5 1:59PM ; [facility] Ordered follow-up visit to ER [facility] EM VISIT with FELIPA DAVIS [employer] POLIC[employer] SPECIALIST-BC 05/18/2015 Last Documented On 5 7:07PM ; [facility] Increase fluids PROBLEM VISIT with SHANT AREVALO-C 05/11/2015 Last Documented On 5 2:13PM ; [facility] Ordered return to the clinic if condition worsens or new symptoms arise PROBLEM VISIT with SHANT Farrell VIRAL PA-C 05/11/2015 Last Documented On 5 2:13PM ; [facility] Increase fluids PROBLEM VISIT with SHANT KIM ARIELLA PA-C 05/08/2015 Last Documented On 5 8:41AM ; [facility] Ordered return to the clinic if condition worsens or new symptoms arise PROBLEM VISIT with SHANT Farrell VIRAL PA-C 05/08/2015 Last Documented On 5 8:41AM ; [facility] Ordered follow-up visit with PCP if symptoms not resolving within 10 days SICK VISIT with FELIPA DAVIS [facility]- 04/24/2015 Last Documented On 5 1:19PM ; [facility] return for pap smear when no t on menses CONSULTATION with SHANT Bud VIRAL PA-C 03/20/2015 Last Documented On 5 3:33PM ; [facility] Ordered return to the clinic if condition worsens or new symptoms arise CONSULTATION with SHANT Farrell VIRAL PA-C 03/20/2015 Last Documented On 5 3:33PM ; [facility] Ordered follow-up visit in 5 -7 days with an office visit if symptoms persist or soon if symptoms worsen. Go to ER if symptoms worsen while on antibiotics Throat culture sent will call patient with results SICK VISIT with PILI CALIXTO [facility]- 03/07/2015 Last Documented On 5 6:50PM ; [facility] Increase fluids SICK VISIT with SHANT Farrell MCKENZIE CANCHOLA PA-C 07/07/2013 Last Documented On 3 9:24AM ; [facility] OTC Ibuprofen as needed for pain, 600mg TID SICK VISIT with SHANT Farrell VIRAL PA-C 07/07/2013 Last Documented On 3 9:24AM ; [facility] Ordered follow-up visit as n eeded with an office visit. SICK VISIT with SHANT Farrell VIRAL PA-C 07/07/2013 Last Documented On 3 9:24AM ; [facility] Ordered return to the clinic if condition worsens or new symptoms arise SICK VISIT with SHANT STRATTON PA-C 07/07/2013 Last Documented On 3 9:24AM ; [facility] OTC Ibuprofen as needed for pain, 600mg TID NEW PATIENT VISIT with SHANT STRATTON PA-C 06/09/2013 Last Documented On 3 2:39PM ; [facility] Ordered follow-up visit as n eeded with an office visit. NEW PATIENT VISIT with SHANT STRATTON PA-C 06/09/2013 Last Documented On 3 2:39PM ; [facility] Ordered return to the clinic if condition worsens or new symptoms arise NEW PATIENT VISIT with SHANT STRATTON PA-C 06/09/2013 Last Documented On 3 2:39PM ; [facility] Referrals To Diagnosis ENT Specialist OTITIS MEDIA NOS Last Documented On 4 11:05AM ; [facility] Warehouse Order Filler Pelvic and perin eal pain Last Documented On 6 3:08PM ; [facility] Urologist Other chronic cy stitis without hematuria Note: female Last Documented On 5 2:39PM ; [facility] Ophthalmology KATHARINA GOLD M.D. Unspecified v isual loss Last Documented On 0 2:59PM ; [facility] Instructions to patient Instructions for patient Last Documented On 4 12:08PM ; [facility] Intervention and counseling on cessation of tobacco use Last Documented On 4 8:59AM ; [facility] Watch for signs/symptoms of infection, return to the clinic if seen Last Documented On 3 4:53PM ; [facility] Instructions for patient Last Documented On 3 1:39PM ; [facility] Intervention and counseling on cessation of tobacco use Last Documented On 3 1:20PM ; [facility] Instructions for patient Last Documented On 2 10:24AM ; [facility] Go to the emergency room if condition worsens Last Documented On 1 6:20PM ; [facility] Watch for signs/symptoms of infection Last Documented On 1 6:20PM ; [facility] Watch for signs/symptoms of infection, return to the clinic if seen Last Documented On 1 6:20PM ; [facility] Instructions for patient : B reast Self Exam discussed and technique reviewed Last Documented On 0 11:23AM ; [facility] Use a condom during sexual i ntercourse Last Documented On 0 11:23AM ; [facility] Lose weight Last Documented On 0 11:23AM ; [facility] Instructed to call if excess krishna bleeding or abdominal/pelvic pain Last Documented On 0 11:23AM ; [facility] Recommend diet and exercise at least 30 min three times per week Last Documented On 0 11:23AM ; [facility] Go to the emergency room if condition worsens Last Documented On 0 12:45PM ; [facility] Watch for signs/symptoms of infection Last Documented On 0 12:45PM ; [facility] Watch for signs/symptoms of infection, return to the clinic if seen Last Documented On 0 12:45PM ; [facility] Go to the emergency room if condition worsens Last Documented On 9 9:12AM ; [facility] Watch for signs/symptoms of infection Last Documented On 9 9:12AM ; [facility] Watch for signs/symptoms of infection, return to the clinic if seen Last Documented On 9 9:12AM ; [facility] Instructions for patient : B reast Self Exam discussed and technique reviewed Last Documented On 9 2:07PM ; [facility] Use a condom during sexual i ntercourse Last Documented On 9 2:07PM ; [facility] Instructed to call if excess krishna bleeding or abdominal/pelvic pain Last Documented On 9 2:07PM ; [facility] Recommend diet and exercise at least 30 min three times per week Last Documented On 9 2:07PM ; [facility] Go to the emergency room if condition worsens Last Documented On 8 12:15PM ; [facility] Watch for signs/symptoms of infection Last Documented On 8 12:15PM ; [facility] Watch for signs/symptoms of infection, return to the clinic if seen Last Documented On 8 12:15PM ; [facility] Go to the emergency room if condition worsens Last Documented On 8 2:17PM ; [facility] Go to the emergency room if condition worsens Last Documented On 8 4:03PM ; [facility] Watch for signs/symptoms of infection, return to the clinic if seen Last Documented On 8 4:01PM ; [facility] Recommend diet and exercise at least 30 min three times per week Last Documented On 8 11:51AM ; [facility] Go to the emergency room if condition worsens Last Documented On 7 1:24PM ; [facility] Watch for signs/symptoms of infection, return to the clinic if seen Last Documented On 7 1:24PM ; [facility] Instructions for patient : B reast Self Exam discussed Last Documented On 7 1:31PM ; [facility] Go to the emergency room if condition worsens Last Documented On 7 1:39PM ; [facility] Go to the emergency room if condition worsens Last Documented On 7 8:59AM ; [facility] Go to the emergency room if condition worsens Last Documented On 7 2:28PM ; [facility] Go to the emergency room if condition worsens Last Documented On 7 9:45AM ; [facility] Watch for signs/symptoms of infection, return to the clinic if seen Last Documented On 7 10:52AM ; [facility] Go to the emergency room if condition worsens Last Documented On 6 4:53PM ; [facility] Watch for signs/symptoms of infection Last Documented On 6 4:53PM ; [facility] Watch for signs/symptoms of infection, return to the clinic if seen Last Documented On 6 4:53PM ; [facility] Instructions for patient : B reast Self Exam discussed Last Documented On 6 1:31PM ; [facility] Return to the clinic if cond ition worsens or new symptoms arise Last Documented On 6 2:22PM ; [facility] Go to the emergency room if condition worsens Last Documented On 6 2:22PM ; [facility] Watch for signs/symptoms of infection Last Documented On 6 2:22PM ; [facility] Watch for signs/symptoms of infection, return to the clinic if seen Last Documented On 6 2:22PM ; [facility] Go to the emergency room if condition worsens Last Documented On 5 1:40PM ; [facility] Go to the emergency room if condition worsens Last Documented On 5 1:55PM ; [facility] Go to the emergency room if condition worsens Last Documented On 5 1:31PM ; [facility] Go to the emergency room if condition worsens Last Documented On 5 3:05PM ; [facility] Recommend diet and exercise at least 30 min three times per week Last Documented On 5 3:05PM ; [facility] Watch for signs/symptoms of infection, return to the clinic if seen Last Documented On 5 6:45PM ; [facility] Education and Decision Aids were provided during visit for: Patient education about anti biotics: need to finish even if feeling better Last Documented On 1 6:20PM ; [facility] Patient education RE: navin bueno signals associated with hormonal contraceptive use including abdominal, chest, or leg pain, headaches or visual disturbances Last Documented On 0 11:23AM ; [facility] Patient Education: Daily miguel cium and vitamin D Last Documented On 0 11:23AM ; [facility] control consent review ed and signed Last Documented On 0 11:23AM ; [facility] Patient education about anti biotics: need to finish even if feeling better Last Documented On 0 12:45PM ; [facility] Plan of care discussed with patient. Understanding was verbalized by all and all questions were addressed and answered. Last Documented On 0 3:12PM ; [facility] Inquiry and counseling about contraceptive practices Last Documented On 9 3:42PM ; [facility] Patient education RE: tungeliezer myles signals associated with hormonal contraceptive use including abdominal, chest, or leg pain, headaches or visual disturbances Last Documented On 9 2:07PM ; [facility] Patient Education: Daily miguel cium and vitamin D Last Documented On 9 2:07PM ; [facility] Patient education about anti biotics: need to finish even if feeling better Last Documented On 8 12:15PM ; [facility] Patient counseling : STD pre vention. I discussed with the patient that condoms can reduce the chance of getting an STD but not eliminate it. Increased exposure from multiple sex partners also discussed Last Documented On 8 10:07AM ; [facility] HIV counseling given Last Documented On 8 10:07AM ; [facility] Patient counseling : Use of oral contraceptives discussed in detail including rare occurrence of heart attack, stroke, and leg clots. Patient understands that smoking increases the risk of serious side effects with any steroid-based contraceptive method Last Documented On 8 9:55AM ; [facility] Patient counseling : Use of oral contraceptives discussed in detail including rare occurrence of heart attack, stroke, and leg clots. Patient understands that smoking increases the risk of serious side effects with any steroid-based contraceptive method Last Documented On 8 3:39PM ; [facility] Dietary counseling pertainin g to obesity Last Documented On 8 2:08PM ; [facility] Patient counseling : Use of oral contraceptives discussed in detail including rare occurrence of heart attack, stroke, and leg clots. Patient understands that smoking increases the risk of serious side effects with any steroid-based contraceptive method Last Documented On 7 1:53PM ; [facility] STD screening offered and de clined Last Documented On 7 1:31PM ; [facility] STD screening desired and or dered (cultures only) Last Documented On 6 1:54PM ; [facility] Dietary counseling pertainin g to obesity Last Documented On 5 3:05PM ; [facility] Patient education about anti biotics: need to finish even if feeling better Last Documented On 3 9:14AM ; [facility] Patient education about anti biotics: need to finish even if feeling better Last Documented On 3 2:37PM ; [facility] Assessments Includes: Assessments for all patient encounters Findings Encounter Date Acute pharyngitis COVID SICK VISIT- ES TABLISHED PATIENT with KRYSTAL FUENTES DNP 09/26/2023 Last Documented On 4 7:33PM ; [facility] Acute upper respiratory infection COVID SICK VISIT- ESTABLISHED PATIENT with EZE VICKERS MARK 09/24/2023 Last Documented On 4 12:15PM ; [facility] Acute suppurative otitis med ia of both ears COVID SICK VISIT- ESTABLISHED PATIENT with CANDY MONTANO [employer]IC[employer] SPECIALIST-C 07/14/2023 Last Documented On 3 5:30PM ; [facility] COVID-19 infection COVID SICK VISIT- ES TABLISHED PATIENT with PILI CALIXTO [employer] POLIC[employer] SPECIALIST-BC 07/12/2023 Last Documented On 3 1:41PM ; [facility] Acute pharyngitis COVID SICK VISIT- ES TABLISHED PATIENT with PILI SANDOVAL [employer] POLICY SPECIALIST-C 12/22/2022 Last Documented On 3 9:59AM ; [facility] Acute upper respiratory infection COVID SICK VISIT- ESTABLISHED PATIENT with PLII Didi CALXITO [employer] POLICY SPECIALIST-BC 07/26/2022 Last Documented On 2 10:28AM ; [facility] Contact with and (Suspected) exposure to COVID-19 COVID SICK VISIT- ESTABLISHED PATIENT with CANDY MONTANO [employer] POLICY SPECIALIST-C 07/12/2022 Last Documented On 2 10:46AM ; [facility] Upper respiratory infection COVID SICK V ISIT- ESTABLISHED PATIENT with CANDY MONTANO [employer] POLICY SPECIALIST-C 07/12/2022 Last Documented On 2 10:46AM ; [facility] Acute pharyngitis COVID SICK VISIT- ES TABLISHED PATIENT with KRYSTAL Marquez GANN [employer] POLICY SPECIALIST-C 05/12/2022 Last Documented On 2 11:31AM ; [facility] Acute serous otitis media COVID SICK VIS IT- ESTABLISHED PATIENT with KRYSTAL Marquez GANN [employer] POLICY SPECIALIST-C 05/12/2022 Last Documented On 2 11:31AM ; [facility] Assessment of fever COVID SICK VISIT- ES TABLISHED PATIENT with KRYSTAL GANN [employer] POLICY SPECIALIST-C 05/12/2022 Last Documented On 2 11:31AM ; [facility] Contact with and (Suspected) exposure to COVID-19 COVID SICK VISIT- ESTABLISHED PATIENT with KRYSTAL Marquez GANN [employer] POLICY SPECIALIST-C 05/12/2022 Last Documented On 2 11:31AM ; [facility] Viral infection [B34.9 - Vir al infection, unspecified] COVID SICK VISIT- ESTABLISHED PATIENT with KRYSTAL Marquez GANN [employer] POLICY SPECIALIST-C 05/12/2022 Last Documented On 2 11:31AM ; [facility] Contusion of right foot with intact skin surface WALK IN PATIENT - ESTABLISHED PT with KRYSTAL Marquez GANN [employer] POLICY SPECIALIST-C 01/15/2022 Last Documented On 2 1:15PM ; [facility] Acute sinusitis COVID SICK VISIT- ES TABLISHED PATIENT with PILI CALIXTO [employer] POLIC[employer] SPECIALIST-BC 08/22/2021 Last Documented On 1 6:26PM ; [facility] Common migraine (without aur a) without intractable migraine without status migrainosus 1 MONTH CHECK with RODDY DELAROSA PA-C 12/22/2019 Last Documented On 0 11:18AM ; [facility] Nausea 1 MONTH CHECK with RODDY RASMUSSEN INS PA-C 12/22/2019 Last Documented On 0 11:18AM ; [facility] Degree of visual impairment PROBLEM VISIT with Susannah DELAROSA PA-C 11/29/2019 Last Documented On 0 11:11AM ; [facility] Fatigue PROBLEM VISIT with RODDY RASMUSSEN INS PA-C 11/29/2019 Last Documented On 0 11:11AM ; [facility] Migraine headache PROBLEM VISIT with RODDY BRASWELL PA-C 11/29/2019 Last Documented On 0 11:11AM ; [facility] NORMAL FEMALE EXAM [facility] EXAM with RUTHANN Marquez MEGHA 11/17/2019 Last Documented On 0 11:49AM ; [facility] Screen malignant neoplasm cervix [facility] [employer] EXAM with Nara ROMANO RN [facility] 11/17/2019 Last Documented On 0 11:49AM ; [facility] Assessment of fever SICK VISIT with RODDY E MIKE KINS PA-C 10/18/2019 Last Documented On 0 4:02PM ; [facility] Influenza B SICK VISIT with RODDY E DELAROSA PA-C 10/18/2019 Last Documented On 0 4:02PM ; [facility] Acute sinusitis WALK-IN CLINIC SICK VISIT with Susannah CALIXTO [facility]- 10/16/2019 Last Documented On 0 1:07PM ; [facility] Sprain of the left ankle 1 WK CK-UP with RODDY E DELAROSA PA-C 09/24/2019 Last Documented On 0 2:08PM ; [facility] Cyst on the left ovary CHART UPDATE with RUTHANN ROMANO RN [facility] 08/05/2019 Last Documented On 9 12:45PM ; [facility] Contraceptive management PROBLEM VISIT with WILLIE RMOANO RN [facility] 08/03/2019 Last Documented On 9 4:20PM ; [facility] Cyst on the left ovary PROBLEM VISIT with RUTHANN ROMANO RN [facility] 08/03/2019 Last Documented On 9 4:20PM ; [facility] Female pelvic pain PROBLEM VISIT with RUTHANN BEARD RN [facility] 08/03/2019 Last Documented On 9 4:20PM ; [facility] Abdominal pain PROBLEM VISIT with RODDY E JENK INS PA-C 07/30/2019 Last Documented On 9 6:39PM ; [facility] Backache PROBLEM VISIT with RODDY E JENK INS PA-C 07/30/2019 Last Documented On 9 6:39PM ; [facility] Cyst on the left ovary PROBLEM VISIT with RODDY E DELAROSA PA-C 07/30/2019 Last Documented On 9 6:39PM ; [facility] GERD PROBLEM VISIT with RODDY E JENK INS PA-C 07/30/2019 Last Documented On 9 6:39PM ; [facility] SCREENING FOR STD PROBLEM VISIT with RODDY BRASWELL PA-C 07/30/2019 Last Documented On 9 6:39PM ; [facility] Abdominal pain PROBLEM VISIT with RODDY RASMUSSEN INS PA-C 07/14/2019 Last Documented On 9 5:17PM ; [facility] Infectious mononucleosis LAB with LUIZ ASH MD 02/24/2019 Last Documented On 9 12:03PM ; [facility] Constipation CHECK UP with RODDY DELAROSA P A-C 02/16/2019 Last Documented On 9 10:51AM ; [facility] Infectious mononucleosis CHECK UP with RODDY DELAROSA PA-C 02/16/2019 Last Documented On 9 10:51AM ; [facility] Viral infection [B34.9 - Vir al infection, unspecified] [facility] SICK VISIT with PILI MAYES-BC 02/10/2019 Last Documented On 9 11:16AM ; [facility] Migraine headache [G43.019 - Migraine without aura, intractable, without status migrainosus] [facility] SICK VISIT with KRYSTAL MAYES-C 02/08/2019 Last Documented On 9 11:26AM ; [facility] Viral infection [B34.9 - Vir al infection, unspecified] W[facility]IN CL[facility]IC SICK VISIT with KRYSTAL GANN [employer] POLICY SPECIALIST-C 02/08/2019 Last Documented On 9 11:26AM ; [facility] Checking intrauterine device (IUD) PROBLEM VISIT with KATHY ZHU MD 01/06/2019 Last Documented On 9 12:18PM ; [facility] Dyspareunia PROBLEM VISIT with KATHY Lomeli MD 01/06/2019 Last Documented On 9 12:18PM ; [facility] Urinary tract infection PROBLEM VISIT with KATHY ZHU MD 01/06/2019 Last Documented On 9 12:18PM ; [facility] Acute pharyngitis WALK[facility]IN CLINIC SICK VISIT with PILI CALIXTO [facility]- 11/05/2018 Last Documented On 9 9:17AM ; [facility] Routine adult history and ph ysical (18 - 64 yrs) WALK[facility]IN CLINIC SICK VISIT with CANDACE GUERRERO [facility]- 11/03/2018 Last Documented On 9 3:24PM ; [facility] NORMAL FEMALE EXAM OVERSEER KOSHER KITCHEN EXAM with RUTHANN Marquez NP 09/01/2018 Last Documented On 9 2:27PM ; [facility] Vaginitis OVERSEER KOSHER KITCHEN EXAM with RUTHANN ROMANO RN W P 09/01/2018 Last Documented On 9 2:27PM ; [facility] Acute sinusitis WALK[facility]IN CLINIC SICK VISIT with Susannah CALIXTO [facility]- 07/01/2018 Last Documented On 8 12:16PM ; [facility] Contraceptive management 1 MONTH CHECK with CAROL PANG MD 03/17/2018 Last Documented On 8 11:13AM ; [facility] Contraceptive management: In sertion of IUD IUD INSERTION with CAROL PANG MD 02/24/2018 Last Documented On 8 2:04PM ; [facility] Menometrorrhagia CONSULTATION with CAROL PANG MD 02/20/2018 Last Documented On 8 10:12AM ; [facility] Concussion with no loss of consciousness PROBLEM VISIT with SHANT STRATTON PA-C 02/10/2018 Last Documented On 8 2:18PM ; [facility] Neck strain PROBLEM VISIT with SHANT KRISHNAN PA-C 02/10/2018 Last Documented On 8 2:18PM ; [facility] Contusion with intact skin s urface of the left anterior leg WALK[facility]IN [facility]IC SICK VISIT with PILI CALIXTO [facility]- 11/24/2017 Last Documented On 8 4:05PM ; [facility] Lumbosacral radiculopathy , improving CH CHRIS UP with SHANT STRATTON PA-C 09/12/2017 Last Documented On 8 2:09PM ; [facility] Morbid obesity CHECK UP with SHANT KIMPRICH PA-C 09/12/2017 Last Documented On 8 2:09PM ; [facility] Gastroenteritis WALK-IN CLINIC SICK VISIT with Susannah CALIXTO [employer]IC[employer] SPECIALIST-BC 08/24/2017 Last Documented On 7 1:27PM ; [facility] Lumbosacral radiculopathy , improving CH CHRIS UP with SHANT KIMPRICH PA-C 07/02/2017 Last Documented On 8 3:21PM ; [facility] Routine pelvic exam ANNUAL WELL WOMEN EXAM with CAROL PANG MD 06/18/2017 Last Documented On 7 1:53PM ; [facility] Lumbosacral radiculopathy CHECK UP with SHANT KIMPRICH PA-C 06/18/2017 Last Documented On 7 1:48PM ; [facility] Lumbosacral radiculopathy CHECK UP with SHANT KIMPRICH PA-C 06/04/2017 Last Documented On 7 9:07AM ; [facility] Lumbosacral radiculopathy EMERGENCY ROOM FOLLOW UP with SHANT KIMPRICH PA-C 05/26/2017 Last Documented On 7 10:14PM ; [facility] Pain in lower leg EMERGENCY ROOM FOLLOW UP with SHANT KIMPRICH PA-C 05/26/2017 Last Documented On 7 10:14PM ; [facility] Arthralgia of the right knee/patella/tibia/fibula EMERGENCY ROOM FOLLOW UP with SHANT KIMPRICH PA-C 05/20/2017 Last Documented On 7 10:44AM ; [facility] Pain in lower leg EMERGENCY ROOM FOLLOW UP with SHANT Bud ZIPPRICH PA-C 05/20/2017 Last Documented On 7 10:44AM ; [facility] Dermatitis due to contact wi th poison omid WALK-IN CLINIC SICK VISIT with FELIPA DAVIS [employer] POLICY SPECIALIST-BC 03/02/2017 Last Documented On 7 5:47PM ; [facility] Lateral epicondylitis of right elbow [facility] SICK VISIT with FELIPA DAVIS [facility]-BC 01/31/2017 Last Documented On 7 6:24PM ; [facility] Urticaria WALK-IN CLINIC SICK VISIT with Susannah CALIXTO [facility]-BC 12/04/2016 Last Documented On 7 10:53AM ; [facility] Common migraine (without aur a) without intractable migraine without status migrainosus WALK-IN CLINIC SICK VISIT with KRYSTAL GANN [employer] POLICY SPECIALIST-C 11/22/2016 Last Documented On 7 1:22PM ; [facility] Nausea WALK-IN CLINIC SICK VISIT with Susannah COCO Marquez GANN [employer] POLICY SPECIALIST-C 11/22/2016 Last Documented On 7 1:22PM ; [facility] Acute cystitis PROBLEM VISIT with SHANT Farrell JUDY KRISHNAN PA-C 11/20/2016 Last Documented On 7 3:44PM ; [facility] Fatigue PROBLEM VISIT with SHANT Farrell JUDY KRISHNAN PA-C 11/20/2016 Last Documented On 7 3:44PM ; [facility] Impaired fasting glucose PROBLEM VISIT with WILIAM Farrell VIRAL PA-C 11/20/2016 Last Documented On 7 3:44PM ; [facility] Pustular folliculitis WALK-IN CLINIC SIC K VISIT with FELIPA DAVIS [facility]-BC 10/07/2016 Last Documented On 7 1:10PM ; [facility] Visit for: student physical WALK-IN CLIN IC SICK VISIT with KRYSTAL GANN AMER[employer]DI[employer] POLICY SPECIALIST-C 09/16/2016 Last Documented On 7 2:10PM ; [facility] Group A streptococcus: B hem olytic pharyngitis SICK VISIT with PILI CALIXTO [facility]-BC 07/04/2016 Last Documented On 6 4:55PM ; [facility] Routine pelvic exam OVERSEER KOSHER KITCHEN EXAM with CAROL PANG MD 06/12/2016 Last Documented On 6 1:55PM ; [facility] Urticaria allergic due to envenomation P ROBLEM VISIT with FELIPA DAVIS [facility]-BC 04/03/2016 Last Documented On 6 5:32PM ; [facility] Infectious gastroenteritis SAME DAY SICK VISIT with FELIPA Ramirez SUSAN AMER[employer]DIAN POLICY SPECIALIST-BC 03/12/2016 Last Documented On 6 4:03PM ; [facility] Nausea SAME DAY SICK VISIT with ABDIRAHMAN EVY Ashley KAHRIG [facility]-BC 03/12/2016 Last Documented On 6 4:03PM ; [facility] Contraceptive management CONSULTATION with CAROL PANG MD 02/23/2016 Last Documented On 6 10:59AM ; [facility] Female pelvic pain CONSULTATION with CAROL GRIJALVA MD 02/23/2016 Last Documented On 6 10:59AM ; [facility] Menometrorrhagia CONSULTATION with CAROL PANG MD 02/23/2016 Last Documented On 6 10:59AM ; [facility] Pharyngitis, Strep SICK VISIT with KRYSTAL TERESA AMER[employer]AN POLICY SPECIALIST-C 01/13/2016 Last Documented On 6 2:26PM ; [facility] Otitis externa of the right ear SICK VISIT with PILI CALIXTO [facility]-BC 12/21/2015 Last Documented On 6 3:21PM ; [facility] Viral gastroenteritis SICK VISIT with PILI CALIXTO [facility]-BC 12/21/2015 Last Documented On 6 3:21PM ; [facility] Internal hemorrhoids SICK VISIT with FELIPA A KAHRIG [facility]-BC 11/10/2015 Last Documented On 6 1:59PM ; [facility] Assessment of cough SICK VISIT with MONO BRITO PA-C 10/30/2015 Last Documented On 6 12:44PM ; [facility] Upper respiratory infection SICK VISIT with AIDAN DURBIN PA-C 10/30/2015 Last Documented On 6 12:44PM ; [facility] Bilateral serous nonsuppurat krishna otitis media SICK VISIT with SHANT STRATTON PA-C 10/24/2015 Last Documented On 6 10:33AM ; [facility] Otitis externa SICK VISIT with SHANT RINCON CH PA-C 10/24/2015 Last Documented On 6 10:33AM ; [facility] Common migraine (without aur a) without intractable migraine PROBLEM VISIT with FELIPA A KAHRIG [employer] POLICY SPECIALIST-BC 07/12/2015 Last Documented On 5 4:11PM ; [facility] Common migraine (without aur a) without intractable migraine without status migrainosus PROBLEM VISIT with FELIPA A KAHRIG AMER[employer]DI[employer] POLICY SPECIALIST-BC 07/12/2015 Last Documented On 5 4:11PM ; [facility] Discharge diagnosis of PRIMA RY CARE PROVIDER : JENN ZIPPRICH PROBLEM VISIT with FELIPA A KAHRIG AMER[employer] POLICY SPECIALIST-BC 07/12/2015 Last Documented On 5 4:11PM ; [facility] Mucopurulent conjunctivitis PROBLEM VISIT with C ATHARINE A KAHRIG AMER[employer] POLICY SPECIALIST-BC 07/12/2015 Last Documented On 5 4:11PM ; [facility] Female pelvic pain GENERAL OFFICE VISIT with RAFAELA THANH D ZIPPRICH PA-C 06/14/2015 Last Documented On 5 1:50PM ; [facility] Recurrent cystitis GENERAL OFFICE VISIT with RAFAELA THANH D ZIPPRICH PA-C 06/14/2015 Last Documented On 5 1:50PM ; [facility] Female pelvic pain NEW OVERSEER KOSHER KITCHEN EXAM with CAROL GRIJALVA MD 06/05/2015 Last Documented On 5 9:52AM ; [facility] Female pelvic pain PROBLEM VISIT with SHANT D ZIPPRICH PA-C 05/26/2015 Last Documented On 5 1:59PM ; [facility] Female pelvic pain [Patient Encounter] with WILIAM SSA D ZIPPRICH PA-C 05/19/2015 Last Documented On 5 4:14PM ; [facility] Abdominal pain--RLQ PROBLEM VISIT with FELIPA A KAHRIG AMER[employer]DI[employer] POLICY SPECIALIST-BC 05/18/2015 Last Documented On 5 7:07PM ; [facility] Discharge diagnosis of PRIMA RY CARE PROVIDER : JENN ZIPPRICH PROBLEM VISIT with FELIPA A KAHRIG AMER[employer]DI[employer] POLICY SPECIALIST-BC 05/18/2015 Last Documented On 5 7:07PM ; [facility] Flank pain PROBLEM VISIT with FELIPA A Susannah GUEVARA AMER[employer]DI[employer] POLICY SPECIALIST-BC 05/18/2015 Last Documented On 5 7:07PM ; [facility] Vaginitis PROBLEM VISIT with SHANT Farrell JUDY KRISHNAN PA-C 05/11/2015 Last Documented On 5 2:13PM ; [facility] Allergic rhinitis PROBLEM VISIT with SHANT Blount PIETRO PA-C 05/08/2015 Last Documented On 5 8:41AM ; [facility] Dyspnea/SOB PROBLEM VISIT with SHANT Farrell JUDY KRISHNAN PA-C 05/08/2015 Last Documented On 5 8:41AM ; [facility] Urinary tract infection PROBLEM VISIT with GIULIANA Farrell ZIPPRJUAN PA-C 05/08/2015 Last Documented On 5 8:41AM ; [facility] Discharge diagnosis of PRIMA RY CARE PROVIDER : DR STRATTON SICK VISIT with FELIPA DAVIS [facility]-BC 04/24/2015 Last Documented On 5 1:19PM ; [facility] Upper respiratory infection SICK VISIT with JOSE A DAVIS AMER[employer] POLICY SPECIALIST-BC 04/24/2015 Last Documented On 5 1:19PM ; [facility] Dysmenorrhea CONSULTATION with SHANT Farrell SHAGUFTA PICHARDO PA-C 03/20/2015 Last Documented On 5 3:33PM ; [facility] Discharge diagnosis of PRIMA RY CARE PROVIDER : DR. SANCHEZ/ VIRAL SICK VISIT with PILI CALIXTO [facility]-BC 03/07/2015 Last Documented On 5 6:50PM ; [facility] Upper respiratory infection SICK VISIT with TAYE CALIXTO AMER[employer] POLICY SPECIALIST-BC 03/07/2015 Last Documented On 5 6:50PM ; [facility] Urinary tract infection SICK VISIT with PILI CALIXTO AMER[employer] POLICY SPECIALIST-BC 03/07/2015 Last Documented On 5 6:50PM ; [facility] Lymphadenopathy SICK VISIT with SHANT Farrell MCKENZIE CANCHOLA PA-C 07/07/2013 Last Documented On 3 9:24AM ; [facility] Otitis media of the right ea r , resistant SICK VISIT with SHANT Farrell VIRAL PA-C 07/07/2013 Last Documented On 3 9:24AM ; [facility] Urinary tract infection SICK VISIT with SHANT Farrell VIRAL GRIFFITH 07/07/2013 Last Documented On 3 9:24AM ; [facility] Otitis media of the right ear NEW PATIEN T VISIT with SHANT Farrell VIRAL GRIFFITH 06/09/2013 Last Documented On 3 2:39PM ; [facility] Instructions Includes: Instructions for all patient encounters Instructions to patient Instructions for patient Last Documented On 4 12:08PM ; [facility] Intervention and counseling on cessation of tobacco use Last Documented On 4 8:59AM ; [facility] Watch for signs/symptoms of infection, return to the clinic if seen Last Documented On 3 4:53PM ; [facility] Instructions for patient Last Documented On 3 1:39PM ; [facility] Intervention and counseling on cessation of tobacco use Last Documented On 3 1:20PM ; [facility] Instructions for patient Last Documented On 2 10:24AM ; [facility] Go to the emergency room if condition worsens Last Documented On 1 6:20PM ; [facility] Watch for signs/symptoms of infection Last Documented On 1 6:20PM ; [facility] Watch for signs/symptoms of infection, return to the clinic if seen Last Documented On 1 6:20PM ; [facility] Instructions for patient : B reast Self Exam discussed and technique reviewed Last Documented On 0 11:23AM ; [facility] Use a condom during sexual i ntercourse Last Documented On 0 11:23AM ; [facility] Lose weight Last Documented On 0 11:23AM ; [facility] Instructed to call if excess krishna bleeding or abdominal/pelvic pain Last Documented On 0 11:23AM ; [facility] Recommend diet and exercise at least 30 min three times per week Last Documented On 0 11:23AM ; [facility] Go to the emergency room if condition worsens Last Documented On 0 12:45PM ; [facility] Watch for signs/symptoms of infection Last Documented On 0 12:45PM ; [facility] Watch for signs/symptoms of infection, return to the clinic if seen Last Documented On 0 12:45PM ; [facility] Go to the emergency room if condition worsens Last Documented On 9 9:12AM ; [facility] Watch for signs/symptoms of infection Last Documented On 9 9:12AM ; [facility] Watch for signs/symptoms of infection, return to the clinic if seen Last Documented On 9 9:12AM ; [facility] Instructions for patient : B reast Self Exam discussed and technique reviewed Last Documented On 9 2:07PM ; [facility] Use a condom during sexual i ntercourse Last Documented On 9 2:07PM ; [facility] Instructed to call if excess krishna bleeding or abdominal/pelvic pain Last Documented On 9 2:07PM ; [facility] Recommend diet and exercise at least 30 min three times per week Last Documented On 9 2:07PM ; [facility] Go to the emergency room if condition worsens Last Documented On 8 12:15PM ; [facility] Watch for signs/symptoms of infection Last Documented On 8 12:15PM ; [facility] Watch for signs/symptoms of infection, return to the clinic if seen Last Documented On 8 12:15PM ; [facility] Go to the emergency room if condition worsens Last Documented On 8 2:17PM ; [facility] Go to the emergency room if condition worsens Last Documented On 8 4:03PM ; [facility] Watch for signs/symptoms of infection, return to the clinic if seen Last Documented On 8 4:01PM ; [facility] Recommend diet and exercise at least 30 min three times per week Last Documented On 8 11:51AM ; [facility] Go to the emergency room if condition worsens Last Documented On 7 1:24PM ; [facility] Watch for signs/symptoms of infection, return to the clinic if seen Last Documented On 7 1:24PM ; [facility] Instructions for patient : B reast Self Exam discussed Last Documented On 7 1:31PM ; [facility] Go to the emergency room if condition worsens Last Documented On 7 1:39PM ; [facility] Go to the emergency room if condition worsens Last Documented On 7 8:59AM ; [facility] Go to the emergency room if condition worsens Last Documented On 7 2:28PM ; [facility] Go to the emergency room if condition worsens Last Documented On 7 9:45AM ; [facility] Watch for signs/symptoms of infection, return to the clinic if seen Last Documented On 7 10:52AM ; [facility] Go to the emergency room if condition worsens Last Documented On 6 4:53PM ; [facility] Watch for signs/symptoms of infection Last Documented On 6 4:53PM ; [facility] Watch for signs/symptoms of infection, return to the clinic if seen Last Documented On 6 4:53PM ; [facility] Instructions for patient : B reast Self Exam discussed Last Documented On 6 1:31PM ; [facility] Return to the clinic if cond ition worsens or new symptoms arise Last Documented On 6 2:22PM ; [facility] Go to the emergency room if condition worsens Last Documented On 6 2:22PM ; [facility] Watch for signs/symptoms of infection Last Documented On 6 2:22PM ; [facility] Watch for signs/symptoms of infection, return to the clinic if seen Last Documented On 6 2:22PM ; [facility] Go to the emergency room if condition worsens Last Documented On 5 1:40PM ; [facility] Go to the emergency room if condition worsens Last Documented On 5 1:55PM ; [facility] Go to the emergency room if condition worsens Last Documented On 5 1:31PM ; [facility] Go to the emergency room if condition worsens Last Documented On 5 3:05PM ; [facility] Recommend diet and exercise at least 30 min three times per week Last Documented On 5 3:05PM ; [facility] Watch for signs/symptoms of infection, return to the clinic if seen Last Documented On 5 6:45PM ; [facility] Education and Decision Aids were provided during visit for: Patient education about anti biotics: need to finish even if feeling better Last Documented On 1 6:20PM ; [facility] Patient education RE: navin g signals associated with hormonal contraceptive use including abdominal, chest, or leg pain, headaches or visual disturbances Last Documented On 0 11:23AM ; [facility] Patient Education: Daily miguel cium and vitamin D Last Documented On 0 11:23AM ; [facility] control consent review ed and signed Last Documented On 0 11:23AM ; [facility] Patient education about anti biotics: need to finish even if feeling better Last Documented On 0 12:45PM ; [facility] Plan of care discussed with patient. Understanding was verbalized by all and all questions were addressed and answered. Last Documented On 0 3:12PM ; [facility] Inquiry and counseling about contraceptive practices Last Documented On 9 3:42PM ; [facility] Patient education RE: tungeliezer g signals associated with hormonal contraceptive use including abdominal, chest, or leg pain, headaches or visual disturbances Last Documented On 9 2:07PM ; [facility] Patient Education: Daily miguel cium and vitamin D Last Documented On 9 2:07PM ; [facility] Patient education about anti biotics: need to finish even if feeling better Last Documented On 8 12:15PM ; [facility] Patient counseling : STD pre vention. I discussed with the patient that condoms can reduce the chance of getting an STD but not eliminate it. Increased exposure from multiple sex partners also discussed Last Documented On 8 10:07AM ; [facility] HIV counseling given Last Documented On 8 10:07AM ; [facility] Patient counseling : Use of oral contraceptives discussed in detail including rare occurrence of heart attack, stroke, and leg clots. Patient understands that smoking increases the risk of serious side effects with any steroid-based contraceptive method Last Documented On 8 9:55AM ; [facility] Patient counseling : Use of oral contraceptives discussed in detail including rare occurrence of heart attack, stroke, and leg clots. Patient understands that smoking increases the risk of serious side effects with any steroid-based contraceptive method Last Documented On 8 3:39PM ; [facility] Dietary counseling pertainin g to obesity Last Documented On 8 2:08PM ; [facility] Patient counseling : Use of oral contraceptives discussed in detail including rare occurrence of heart attack, stroke, and leg clots. Patient understands that smoking increases the risk of serious side effects with any steroid-based contraceptive method Last Documented On 7 1:53PM ; [facility] STD screening offered and de clined Last Documented On 7 1:31PM ; [facility] STD screening desired and or dered (cultures only) Last Documented On 6 1:54PM ; [facility] Dietary counseling pertainin g to obesity Last Documented On 5 3:05PM ; [facility] Patient education about anti biotics: need to finish even if feeling better Last Documented On 3 9:14AM ; [facility] Patient education about anti biotics: need to finish even if feeling better Last Documented On 3 2:37PM ; [facility] Medical Equipment - Implanted Devices Includes: Current and historical Devices No Medical Equipment Recorded Medications Includes: Current and historical Medications Current Medications (continue as prescribed) Lisinopril 10 MG Oral Tablet 08/04/2023 Provider: BRAVO DILL NP Diagnosis: Last Documented On 09/26/2023 7:15PM By Mireya Carrillo MA ; [facility] Nexplanon 68 MG Subcutaneous Implant 07/14/2023 Prov ider: Diagnosis: Last Documented On 07/14/2023 4:40PM By Mireya Carrillo MA ; [facility] Vitamin D (Ergocalciferol) 06753 UNIT Oral Capsule Provider: Diagnosis: once weekly Last Documented On 05/24/202 2 12:03PM By BYRON SCOTT ; [facility] GoodSense Vitamins 28-0.8 MG Oral Tablet 12/24 Provider: Diagnosis: PRN Last Documented On 2 11:22AM By BYRON SCOTT ; [facility] EQ Ibuprofen 200 MG Oral Tablet 09/17/2019 Provider: Diagnosis: 3 tablets Q8H Last Documented On 0 3:05PM By Pili JAYP-C ; [facility] Tylenol 325MG Oral Tablet 02/08/2019 Provider: Diagnosis: PRN-fever & pain Last Documented On 9 10:29AM By BYRON SCOTT ; [facility] Singulair 10MG Oral Tablet 10/14/2017 Provider: SHANT Samaniego Diagnosis: Allergic rhiniti s due to pollen One tablet daily Last Documented On 8 2:46PM By SHANT STRATTON PA-C ; [facility] ProAir HFA 108 (90 Base)MCG/ ACT Inhalation Aerosol Solution 08/24/2017 Provider: PILI GARZA [employer]-BC Diagnosis: Wheezing use as directed 2 puffs every 4-6 hours as neede d Last Documented On 7 1:23PM By PILI CALIXTO [facility]- ; [facility] Past Medications on file Fluconazole 150 MG Oral Tablet 09/15/2023 - 09/26/2023 Provider: Diagnosis: Last Documented On 09/26/2023 7:16PM By Mireya Carrillo MA ; [facility] Azithromycin 250 MG Oral Tablet 07/14/2023 - 07/19/2023 Provider: CANDY MAYES-C Diagnosis: Acute suppr otit is media w/o spon rupt ear drum, bilateral Take two tablets on day 1. T hen, take one tablet on day 2-5 Last Documented On 07/14/2023 5:02PM By Candy MAYES ; [facility] Azithromycin 250 MG Oral Tablet 05/12/2022 - 07/12/2023 Provider: KRYSTAL GANN [employer]-C Diagnosis: Acute serous israel tis media, right ear as directed take 2 tab po qd for 1 day then take 1 tab po qd for 4 days Last Documented On 3 1:19PM By Flori SCOTT ; [facility] Zithromax Z-Kurt 250 MG Oral Tablet 08/22/2021 - 01/15/2022 Provider: PILI MAYES-BC Diagnosis: Acute maxillary sinusitis, unspecified as directed Last Documented On 2 11:20AM By BYRON PENDLETONA ; [facility] Zofran 8 MG Oral Tablet 12/20/2019 - 12/25/2019 Provid er: RODDY DELAROSA PA-C Diagnosis: 1 tab po q 8 hrs PRN. Last Documented On 0 9:47AM By RODDY DELAROSA PA-C ; [facility] Topamax 50 MG Oral Tablet 12/17/2019 - 02/15/2020 Prov ider: RODDY DELAROSA PA-C Diagnosis: One tablet twice a day--this is an increase. Last Documented On 0 9:49AM By RODDY DELAROSA PA-C ; [facility] Cyclobenzaprine HCl 10 MG Oral Tablet 12/03/2019 - 12/08/2019 Provider: LUIZ JAIMES MD Diagnosis: One tablet daily muscle relaxer Last Documented On 0 11:50AM By LUIZ ROLON MD ; [facility] Topamax 25 MG Oral Tablet 11/29/2019 - 12/22/2019 Provider: RODDY DELAROSA PA-C Diagnosis: Migraine w/o aur a, not intractable, w/o status migrainosus 1 tab PO daily x 1 wk then i ncrease to 1 tab BID. Use generic. Last Documented On 0 9:48AM By RODDY DEALROSA PA-C ; [facility] Aviane 0.1-20 MG-MCG Oral Tablet 11/17/2019 - 02/09/2020 Provider: RUTHANN ROMANO RN [facility] Diagnosis: Encounter for in itial prescription of contraceptive pills One tablet daily TAKE DIR ECTED START Friday AFTER NEXT MENSES back up method pack one Last Documented On 0 11:58AM By URTHANN BLANCO-BC ; [facility] Benzonatate 200 MG Oral Capsule 10/18/2019 - 11/29/2019 Provider: RODDY DELAROSA PA-C Diagnosis: Fever, unspecifi ed One tablet three times a day One tablet 2-3 times a day PRN cough Last Documented On 11/29/2019 9:15AM By Dian Roberto CMA ; [facility] Xofluza 2 x 40 MG Oral Tablet Therapy Pack 10/18/2019 - 11/29/2019 Provider: RODDY DELAROSA PA-C Diagnosis: Flu due to oth i dent influenza virus w oth resp manifest 2 tabs PO qd x 1; has copay card Last Documented On 11/29/2019 9:16AM By Dian Roberto CMA ; [facility] Azithromycin 500 MG Oral Tablet 10/16/2019 - 11/29/2019 Provider: PILI CALIXTO [facility]- Diagnosis: Acute maxillary sinusitis, unspecified One tablet daily Last Documented On 11/29/2019 9:15AM By Dian Roberto CMA ; [facility] Ketorolac Tromethamine 10 MG Oral Tablet 08/03/2019 - 09/17/2019 Provider: Diagnosis: Last Documented On 0 2:24PM By PAYAL SCOTT ; [facility] Naproxen 500 MG Oral Tablet 08/03/2019 - 09/17/2019 Provider: RUTHANN ROMANO RN MEGHA Diagnosis: Pelvic and perin eal pain One tablet twice a day USE A S DIRECTED W/FOOD DON'T EXCEED 2 IN 24 HOURS Last Documented On 0 2:24PM By PAYAL SCOTT ; [facility] Condoms Miscellaneous 08/03/2019 - 09/17/2019 Provider: RUTHANN ROMANO RN [facility] Diagnosis: Encounter for ot h general cnsl and advice on contraception as directed Last Documented On 0 2:23PM By PAYAL SCOTT ; [facility] Levaquin 250 MG Oral Tablet 08/02/2019 - 09/17/2019 Pr ovider: RODDY DELAROSA PA-C Diagnosis: ONE TAB BID Last Documented On 0 2:23PM By PAYAL SCOTT ; [facility] Zofran 8 MG Oral Tablet 07/16/2019 - 09/17/2019 Provid er: RODDY DELAROSA PA-C Diagnosis: 1 TAB BID PRN Last Documented On 0 2:24PM By PAYAL SCOTT ; [facility] traMADol HCl 50 MG Oral Tablet 07/16/2019 - 09/17/2019 Provider: RODDY DELAROSA PA-C Diagnosis: 1 tab BID-TID PRN pain. Last Documented On 0 2:24PM By PAYAL SCOTT ; [facility] raNITIdine HCl 150 MG Oral Capsule 07/14/2019 - 09/17/2019 Provider: RODDY DELAROSA PA-C Diagnosis: Unspecified abdo koki pain 1 capsule daily Last Documented On 0 2:24PM By PAYAL SCOTT ; [facility] Azithromycin 500MG Oral Tablet 02/10/2019 - 02/16/2019 Provider: PILI CALIXTO [employer]-BC Diagnosis: Acute sinusitis, unspecified One tablet daily Last Documented On 9 10:17AM By DIAMOND SCOTT ; [facility] Cefuroxime Axetil 500MG Oral Tablet 02/08/2019 - 02/16 Provider: Diagnosis: Last Documented On 9 10:18AM By DIAMOND SCOTT ; [facility] Cyclobenzaprine HCl 5MG Oral Tablet 02/08/2019 - 07/14/2019 Provider: KRYSTAL GANN [employer]-C Diagnosis: Migraine w/o aur a, intractable, without status migrainosus One tablet three times a day prn Last Documented On 9 1:09PM By PAYAL SCOTT ; [facility] Bactrim DS 800-160MG Oral Tablet 01/06/2019 - 02/08/2019 Provider: KATHY Farrell Diagnosis: Urinary tract infection, site not specified One tablet twice a day Last Documented On 9 10:28AM By BYRON SCOTT ; [facility] Azithromycin 500MG Oral Tablet 09/01/2018 - 07/14/2019 Provider: RUTHANN ROMANO RN [facility] Diagnosis: Acute vaginitis as directed 2 TABLETS NOW Last Documented On 9 1:04PM By PAYAL SCOTT ; [facility] Azithromycin 500MG Oral Tablet 09/01/2018 - 07/14/2019 Provider: RUTHANN ROMANO RN MEGHA Diagnosis: Acute vaginitis as directed 2 TABLETS NOW Last Documented On 9 1:04PM By PAYAL SCOTT ; [facility] Azithromycin 500MG Oral Tablet 07/01/2018 - 09/01/2018 Provider: PILI CALIXTO [employer]IST- Diagnosis: Cough One tablet daily Last Documented On 9 2:00PM By SWETA SCOTT ; [facility] Ventolin HFA 108 (90 Base)MCG/ACT Inhalation Aerosol, solution 07/01/2018 - 09/01/2018 Provider: PILI CALIXTO [employer]IST- Diagnosis: Wheezing as directed Last Documented On 9 2:00PM By SWETA SCOTT ; [facility] Medrol 4MG Oral Tablet Therapy Pack 07/01/2018 - 09/01/2018 Provider: PILI CALIXTO [facility]- Diagnosis: Wheezing as directed Last Documented On 9 2:00PM By SWETA SCOTT ; [facility] Kyleena 19.5MG Intrauterine Intrauterine device 02/24/2018 - 09/01/2019 Provider: Diagnosis: insertion 02/24/2018 Last Documented On 0 9:44AM By RUTHANN ROMANO MEGHA- ; [facility] Cyclobenzaprine HCl 10MG Oral Tablet 02/10/2018 - 07/14/2019 Provider: SHANT STRATTON PA-C Diagnosis: Strain of muscle , fascia and tendon at neck level, init 1 po q 8 hrs prn Last Documented On 9 1:09PM By PAYAL SCOTT ; [facility] Quasense 0.15-0.03MG Oral Tablet 10/14/2017 - 02/11/20 18 Provider: Diagnosis: Last Documented On 02/10/2018 1:45PM By DEBBIE SCOTT ; [facility] Levonorgest-Eth Estrad 91-Day 0.15-0.03MG Oral Tablet 10/14/2017 - 02/24/2018 Provider: CAROL PANG MD Diagnosis: Encounter for surveillance of contraceptive pills One tablet daily Last Documented On 02/24/2018 1:42PM By Sindi Hinton MA ; [facility] Mobic 15MG Oral Tablet 09/22/2017 - 07/14/2019 Provide r: SHANT STRATTON PA-C Diagnosis: One tablet daily Last Documented On 9 1:09PM By PAYAL SCOTT ; [facility] Cyclobenzaprine HCl 10MG Ora l Tablet 09/10/2017 - 07/14/2019 Provider: CANDACE FIERRO [facility]- Diagnosis: TAKE 1 TABLET BY MOUTH EVERY 8 HOURS NEEDED Last Documented On 9 1:08PM By PAYAL SCOTT ; [facility] Zithromax Z-Kurt 250MG Oral Tablet 08/27/2017 - 09/12/2017 Provider: PILI CALIXTO [employer]IST-BC Diagnosis: Cough as directed Last Documented On 09/12/2017 10:06AM By DEBBIE SCOTT ; [facility] Cyclobenzaprine HCl 10MG Ora l Tablet 07/08/2017 - 09/10/2017 Provider: CANDACE FIERRO [facility]- Diagnosis: TAKE 1 TABLET BY MOUTH EVERY 8 HOURS NEEDED Last Documented On 8 1:47PM By CANDACE GUERRERO [facility] ; [facility] Mobic 15MG Oral Tablet 07/02/2017 - 09/22/2017 Provider: SHANT RINCON CH, PA-C Diagnosis: Radiculopathy, lumbosacral region One tablet daily Last Documented On 8 9:16PM By SHANT STRATTON PA-C ; [facility] Cyclobenzaprine HCl 10MG Ora l Tablet 06/18/2017 - 07/08/2017 Provider: SHANT RINCON CH, PA-C Diagnosis: TAKE 1 TABLET BY MOUTH EVERY 8 HOURS NEEDED Last Documented On 7 1:09PM By CANDACE GUERRERO [facility] ; [facility] Levonorgest-Eth Estrad 91-Day 0.15-0.03MG Oral Tablet 06/18/2017 - 10/14/2017 Provider: CAROL PANG MD 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 One tablet daily starting Friday08/03/17 please Last Documented On 10/14/2017 3:37PM By CAROL PANG MD ; [facility] Naprosyn 500MG Oral Tablet 06/18/2017 - 07/14/2019 Provider: SHANT STRATTON PA-C Diagnosis: Radiculopathy, lumbosacral region One tablet twice a day Last Documented On 9 1:09PM By PAYAL SCOTT ; [facility] Cyclobenzaprine HCl 10MG Oral Tablet 06/18/2017 - 08/25 Provider: Diagnosis: Last Documented On 09/12/2017 10:06AM By DEBBIE SCOTT ; [facility] MedroxyPROGESTERone Acetate 150MG/ML Intramuscular Suspension 06/18/2017 - 09/12/2017 Provider: Diagnosis: Last Documented On 09/12/2017 10:13AM By DEBBIE SCOTT ; [facility] Cyclobenzaprine HCl 10MG Oral Tablet 06/04/2017 - 06/18/2017 Provider: SHANT STRATTON PA-C Diagnosis: Radiculopathy, lumbosacral region 1 po q 8 hrs prn Last Documented On 7 4:02PM By SHANT STRATTON PA-C ; [facility] Mobic 15MG Oral Tablet 06/04/2017 - 07/14/2019 Provider: SHANT RINCON CH, PA-C Diagnosis: Radiculopathy, lumbosacral region One tablet daily Last Documented On 9 1:06PM By PAYAL SCOTT ; [facility] PredniSONE 20MG Oral Tablet 05/20/2017 - 07/14/2019 Provider: SHANT RINCON CH, PA-C Diagnosis: Pain in right kn ee One tablet twice a day Last Documented On 9 1:06PM By PAYAL SCOTT ; [facility] Triamcinolone Acetonide 0.5% External Ointment 03/02/2017 - 05/20/2017 Provider: FELIPA DAVIS [employer]IST-BC Diagnosis: Unspecified cont act dermatitis due to plants, except food Apply twice a day Last Documented On 05/20/2017 9:17AM By DEBBIE SCOTT ; [facility] PredniSONE 20MG Oral Tablet 03/02/2017 - 05/20/2017 Provider: FELIPA DAVIS [employer]IC[employer] SPECIALIST-BC Diagnosis: Unspecified cont act dermatitis due to plants, except food 1 tab three times daily for 3 days, then 1 tab twice daily for 2 days, then 1 tab once daily for 2 days Last Documented On 05/20/2017 9:17AM By DEBBIE SCOTT ; [facility] Vistaril 25MG Oral Capsule 12/04/2016 - 05/20/2017 Provider: PILI CALIXTO [employer]IST-BC Diagnosis: Urticaria, unspe cified 1 every 6 hours as needed Last Documented On 05/20/2017 9:18AM By DEBBIE SCOTT ; [facility] PredniSONE 20MG Oral Tablet 12/04/2016 - 01/31/2017 Provider: PILI CALIXTO [employer]IST-BC Diagnosis: Urticaria, unspe cified One tablet twice a day Last Documented On 7 5:59PM By FLORI SCOTT ; [facility] Tylenol with Codeine #3 300-30MG Oral Tablet 7 - 05/20/2017 Provider: Diagnosis: Last Documented On 05/20/2017 9:18AM By DEBBIE SCOTT ; [facility] Bactrim DS 800-160MG Oral Tablet 11/26/2016 - 07/14/2019 Provider: SHANT STRATTON PA-C Diagnosis: Other cystitis without hematuria One tablet twice a day Last Documented On 9 1:05PM By PAYAL SCOTT ; [facility] Fioricet/Codeine 83-769-08-30MG Oral Capsule, conventional 11/22/2016 - 11/26/2016 Provider: KRYSTAL GANN [employer]IST-C Diagnosis: Migraine w/o aur a, not intractable, w/o status migrainosus 1 every 6 hours as needed Last Documented On 7 3:17PM By SWETA SCOTT ; [facility] Ondansetron 4MG Oral Tablet Dispersible 11/22/2016 - 01/31/2017 Provider: KRYSTAL [place] [employer]IC[employer] SPECIALIST-C Diagnosis: Nausea 1 every 6 hours as needed Last Documented On 7 5:59PM By FLORI SCOTT ; [facility] Clindamycin Phosphate 1% External Lotion 10/07/2016 - 11/20/2016 Provider: FELIPA DAVIS [facility] Diagnosis: Other specified follicular disorders apply twice daily to affecte d areas x 2 months Last Documented On 11/20/2016 3:22PM By DEBBIE SCTOT ; [facility] Singulair 10 MG Tablet 09/02/2016 - 10/14/2017 Provider: SHANT STRATTON PA-C Diagnosis: Allergic rhiniti s due to pollen One tablet daily Last Documented On 8 2:44PM By SHANT STRATTON PA-C ; [facility] Azithromycin 250 MG Tablet 07/04/2016 - 09/16/2016 Provider: PILI CALIXTO [facility] Diagnosis: Streptococcal pharyngitis as directed Last Documented On 7 1:38PM By VENECIA SCOTT ; [facility] MedroxyPROGESTERone Acetate 150 MG/ML Suspension 06/12/2016 - 07/14/2019 Provider: CAROL PANG MD Diagnosis: as directed Last Documented On 9 1:08PM By PAYAL SCOTT ; [facility] MedroxyPROGESTERone Acetate 150 MG/ML Suspension 05/30/2016 - 06/12/2016 Provider: Diagnosis: Last Documented On 06/12/2016 1:49PM By CAROL PANG MD ; [facility] Triamcinolone Acetonide 0.5 % Ointment 04/03/2016 - 06/12/2016 Provider: FELIPA DAVIS [facility] Diagnosis: Allergic urticar ia Apply twice a day to rash on left leg Last Documented On 06/12/2016 1:25PM By JAI FUNG ; [facility] Zofran ODT 4 MG Tablet Dispersible 03/12/2016 - 09/16/2016 Provider: FELIPA DAVIS [facility] Diagnosis: Infectious gastroenteritis and colitis, unspecified 1 every 6 hours as needed for nausea Last Documented On 7 1:38PM By VENECIA SOCTT ; [facility] Depo-Provera 150 MG/ML Suspension 02/23/2016 - 019 Provider: CAROL PANG MD Diagnosis: as directed Last Documented On 9 1:08PM By PAYAL SCOTT ; [facility] Singulair 5 MG Tablet, chewable 02/23/2016 - 7 Provider: Diagnosis: Last Documented On 11/20/2016 3:22PM By DEBBIE SCOTT ; [facility] Estradiol 1 MG Tablet 02/23/2016 - 07/14/2019 Provider: CAROL PANG MD Diagnosis: Excessive and fr equent menstruation with irregular cycle One tablet daily Last Documented On 9 1:09PM By PAYAL SCOTT ; [facility] Azithromycin 250 MG Tablet 01/13/2016 - 02/23/2016 Provider: KRYSTAL MAYES-C Diagnosis: Streptococcal pharyngitis take 2 tablets po qd for 1 d ay then take 1 tab po qd for 4 days Last Documented On 6 10:24AM By TONI SCOTT ; [facility] Ofloxacin 0.3 % Solution 12/21/2015 - 02/23/2016 Provider: KRYSTAL POWELL Diagnosis: Unspecified otit is externa, right ear 10 drops in left ear once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
[2025-06-18 19:39] VITALS: BP 133/83; PULSE 85; RESP 18; TEMP 36.7; O2SAT 100
--- NOTE | 2025-06-18 19:47 | ED_ITS ---
HPI - Extremity Injury (Lower) General Chief Complaint: Extremity Injury, Lower Stated Complaint: Fall Injury/Right Ankle Time Seen by Provider: 06/18/25 19:30 Source: patient Mode of arrival: ambulatory Limitations: no limitations History of Present Illness HPI Narrative: 29 yo F presents with R ankle pain. Rolled her ankle while going down steps out to garage. Tripped over piece of a vacuum. Ambulatory with limp. All systems reviewed and negative except as noted above. Related Data Home Medications ?Medication ?Instructions ?Recorded ?Confirmed ?Last Taken ?Type cholecalciferol (vitamin D3) 1,250 1,250 mcg PO WEEKLY 03/19/22 05/30/25 05/22/25 History mcg (50,000 unit) capsule acetaminophen 500 mg tablet 1,000 mg PO Q6H PRN Pain o r 03/15/23 05/30/25 05/28/25 History (Tylenol Extra Strength) Headache ibuprofen 600 mg tablet 600 mg PO Q6H PRN Cramping o r 03/15/23 05/23/25 03/13/23 09:00 History Headache rimegepant 75 mg disintegrating 75 mg PO ONCE PRN migr [place] headache 12/20/24 05/30/25 05/28/25 History tablet (Nurtec ODT) tirzepatide 5 mg/0.5 mL 5 mg subcut WEEKLY 12/20/24 05/30/25 05/18/25 History subcutaneous pen injector (Mounjaro) Allergies Allergy/AdvReac Type Severity Reaction Status Date / Time hydrocodone Allergy Severe Rash Verified 05/30/25 09:58 Penicillins Allergy Severe Anaphylaxis Verified 05/30/25 09:58 adhesive tape Allergy Intermediate Rash Verified 05/30/25 09:58 amoxicillin Allergy Intermediate Rash Verified 05/30/25 09:58 doxycycline Allergy Intermediate Rash Verified 05/30/25 09:58 nitrofurantoin Allergy Intermediate Hives Verified 05/30/25 09:58 phentermine AdvReac Intermediate Hypertensio Verified 05/30/25 09:58 n PMFSH Past Medical History Medical History (Updated 06/18/25 @ 19:37 by Addis Hilton APRN) Asthma GERD (gastroesophageal reflux disease) Ovarian cyst Morbid obesity Surgical History Surgical History Hx of cholecystectomy H/O eye surgery Family History Family History Father Colon cancer Diabetes mellitus Heart disease Cirrhosis Patient's father is , Onset Age: 58 Cerebrovascular accident Grandparent Ovarian cancer Diabetes mellitus Heart disease Hypertension Cerebrovascular accident Sibling Yepez's palsy Social History Social History Social History: never smoker Smoking status: Never smoker Alcohol intake: never Substance use: never Lack of Transportation: No Lack of Food: Never True Current Housing: I Have Housing Concerned About Future Housing: No Difficulty Paying Gas/Electric Bills: No Difficulty Paying for Meds: No Currently Unemployed: No Education: High School Diploma/GED Difficulty w/ Childcare or Family Care: No Living arrangements: with family Spiritual care concerns: No Comments At time of signature, agree with nursing past medical, surgical, social and family history. There is no relevant family history pertinent to the presenting complaint. Exam Narrative: GENERAL: This is a well-nourished, well-developed patient, in no apparent distress. HEAD: normocephalic, atraumatic. EYES: PERRL. Sclera clear/white. Vision is grossly intact. EARS: External ears normal NOSE: External nose normal NECK: Neck supple, non-tender without lymphadenopathy, masses or thyromegaly. CARDIOVASCULAR: Regular rate and rhythm without murmurs, gallops, or rubs. RESPIRATORY: Clear to auscultation. Breath sounds equal bilaterally. No wheezes, rales, or rhonchi. SKIN: warm, Dry, intact with no suspicious lesions or rash, good texture and turgor. NEURO: awake, alert, and oriented to person, place and time. There were no obvious focal neurologic abnormalities. EXTREMITIES:Mild swelling noted to right ankle. Tenderness to anterior and lateral aspect of right ankle. No deformity noted. Range of motion decreased due to pain. Distal neurovascularly intact. Course Course Level of Care: Express Care Visit Vital Signs Vital signs: Vital Signs Temperature 36.7 C 06/18/25 19:39 Pulse Rate 85 06/18/25 19:39 Respiratory Rate 18 06/18/25 19:39 Blood Pressure 133/83 06/18/25 19:39 Pulse Oximetry 100 06/18/25 19:39 Oxygen Delivery Room Air 06/18/25 19:39 Temperature 36.7 C 06/18/25 19:39 Pulse Rate 85 06/18/25 19:39 Respiratory Rate 18 06/18/25 19:39 Blood Pressure 133/83 06/18/25 19:39 Pulse Oximetry 100 06/18/25 19:39 Oxygen Delivery Room Air 06/18/25 19:39 Reviewed MDM - Extremity Injury (Lower) MDM Narrative Medical decision making narrative: no technical operations specialist today. Unable to do a ankle x-ray to rule out fracture. Offered to send patient to [facility] for x-ray to night and patient did not want to arrive they were late in evening. Will come back tomorrow for ankle x-ray. Differential Diagnosis Differential diagnosis: Likely ankle sprain and strain and ankle fracture Discharge Plan Discharge Clinical Impression: Acute right ankle pain Patient Disposition: Home Condition: Stable Instructions: Ankle Sprain (ED) Additional Instructions: We are not able to do an x-ray tonight due to no technical operations specialist. Take ibuprofen or tylenol every 6 to 8 hours as needed for pain. Elevate when at rest. Apply ice as needed for pain. Patient Language: Andorran Prescriptions: No Action cholecalciferol (vitamin D3) 1,250 mcg (50,000 unit) capsule 1,250 mcg PO WEEKLY Mounjaro 5 mg/0.5 mL pen injector 5 mg subcut WEEKLY Patient Comments: Fridays Nurtec ODT 75 mg tablet,disintegrating 75 mg PO ONCE PRN (Reason: migraine headache) Rx Instructions: as a single dose ibuprofen 600 mg tablet 600 mg PO Q6H PRN (Reason: pain) Qty: 30 0RF acetaminophen [Tylenol Extra Strength] 500 mg Tablet 1,000 mg PO Q6H PRN (Reason: Pain or Headache) ibuprofen 600 mg Tablet 600 mg PO Q6H PRN (Reason: Cramping or Headache) Follow-up/Referrals: Harms,Los Carty M.D. [Primary Care Provider] Time of Disposition: 19:37
== END 2025-06-18 19:47 | disposition home or self-care (01) ==
PROVIDERS: Emergency Provider Nurse Practitioner Family; PCP Family Medicine
DX: M25.571 Pain in right ankle and joints of right foot (principal); J45.909 Unspecified asthma, uncomplicated; K21.9 Gastro-esophageal reflux disease without esophagitis; E66.01 Morbid (severe) obesity due to excess calories; Z68.41 Body mass index [BMI] 40.0-44.9, adult
CPT/HCPCS: 99212; G0463

== ENCOUNTER 2025-06-19 09:28 | Emergency (ER) | payer OTHER, MEDICAID, SELFPAY ==
--- OUTSIDE RECORDS SUMMARY | 2025-01-26 09:48 | XMS_ITS | Continuity of Care Document ---
Author Organization [facility] [place] Address [address] [place] [address] [address] [place] [address] Phone Care Team Providers Care [employer] Clerk Name Role Phone Rona CRISTIANJuan Davidi Unavailable [...] Diagnoses Date Provider Providers Copied on Encounter [facility] [address] [place] [address], [id number], tel:[phone] Clymer No Information Scheldt Yolanda. . [facility] [address] [place] [address], [id number], tel:[phone] [place] No Information Scheldt Yolanda. . Referring Provider: Baldomero Ceballos Jr, [address] [place] [address], [address]. tel:[phone] [place] [address] [place] [address], [id number], tel:[phone] [place] No Information Jeremi Cruz. . Referring Provider: Baldomero Ceballos Jr, [address] [place] [address], [address]. tel:[phone] [place] [address], [id number], tel:[phone] [place] No Information Scheldt Yolanda. . Referring Provider: Baldomero Ceballos Jr, [address] [place] [address], [address]. tel:[phone] [place] [address], [id number], tel:[phone] Dm No Information Scheldt Yolanda. . Referring Provider: Baldomero Ceballos Jr, [address] [place] [address], [address]. tel:[phone] [place] [address], [id number], tel:[phone] [place] No Information Garenders Nancy. . Referring Provider: Baldomero Ceballos Jr, [address] [facility], [place], [address]. tel:[phone] [address], [place], [place], [id number], tel:[phone] Dm No Information Jose Juan Oscar. . Referring Provider: Burak Olivera, [address] [place] [address], [place], [address]. tel:[phone] [address], [place], [place], [id number], [place] tel:[phone] Md No Information ky Oscar. . Referring Provider: Burak Olivera, [address] [place] [address], [place], [address]. tel:[phone] [address], [place], [place], [id number], tel:[phone] [place] No Information ky Oscar. . Referring Provider: Burak Olivera, [address] [place] [address], [place], [address]. tel:[phone] [address], [place], [place], [id number], [place] tel:[phone] Dm No Information Rona Guerrero. . Referring Provider: Burak Olivera, [address] [place] [address], [place], [address]. tel:[phone] [address], [place], [place], [id number], [place] tel:[phone] Dm No Information Ryanne Mueller. [address] [facility], [address], [place], [address], . tel:[phone] Referring Provider: Burak Olivera, [address] [place] [address], [place], [address]. tel:[phone] [facility], [address] [place] [address], [place], [place], [id number], [place] tel:[phone] [place] No Information Ryanne Mueller. [address] [place] [address], [address], [place], [facility], . tel:[phone] Referring Provider: Burak Olivera, [address] [place] [address], [place], [address]. tel:[phone] [address], [place], [place], [id number], tel:[phone] [place] No Information Jose Juan Moore. . Referring Provider: Burak Olivera, [address] [place] [address], [place], [address]. tel:[phone] [address], [place], [place], [id number], tel:[phone] Dm No Information Ryanne Mueller. [address] [place] [address], [address], [place], [facility], . tel:[phone] Referring Provider: Burak Olivera, [address] [place] [address], [place], [address]. tel:[phone] [address], [place], [place], [id number], tel:[phone] Dm No Information Jeremi Cruz. . Referring Provider: Burak Olivera, [address] [place] [address], [place], [address]. tel:[phone], [place], [place], [id number], [place] tel:[phone] Dm No Information Jose Juan Moore. . Referring Provider: Burak Olivera, [address] [place] [address], [place], [address]. tel:[phone], [place], [place], [id number], [place] tel:[phone] Dm No Information Ryanne Mueller. [address] [facility], [address], [place], [facility], . tel:[phone] Referring Provider: Burak Olivera, [address] [place] [address] [address], [place], [address]. tel:[phone] [facility], [address] [place] [address], [place], [place], [id number], [place] tel:[phone] [place] No Information Ryanne Mueller. [address] [facility], [address], [place], [facility], . tel:[phone] Referring Provider: Burak Olivera, [address] [place] [address], [place], [address]. tel:[phone] [facility], [address] [place] [address], [id number], tel:[phone] Dm No Information Rona Guerrero. . Referring Provider: Burak Olivera, [address] [place] [address], [place], [address]. tel:[phone] [facility], [address] [place] [address], [place], [place], [id number], tel:[phone] [place] No Information Rona Guerrero. . Referring Provider: Burak Olivera [address] [place] [address], [place], [address]. tel:[phone] [address], [place], [place], [id number], [place] tel:[phone] [place] No Information Ezekiel Donis. . Referring Provider: Bradly Camacho, [address] [facility] [address], [place], [address]. tel:[phone] [facility], [address] [place] [address], [place], [place], [id number], [place] tel:[phone] [place] No Information Ezekiel Donis. . Referring Provider: Bradly Camacho, [address] [facility] [address], [place], [address]. tel:[phone] [facility], [address] [place] [address], [place], [place], [id number], [place] tel:[phone] [place] No Information Devenrels Nancy. . Referring Provider: Burak Olivera, [address] [place] [address], [place], [address]. tel:[phone] [address], [place], [place], [address], tel:[phone] Dm No Information Enzos Nancy. . Referring Provider: Burak Olivera, [address] [place] [address], [place], [address]. tel:[phone] [facility] [address] [place] [address], [place], [place], [id number], [place] tel:[phone] [place] No Information Ezekiel Donis. . Referring Provider: Bradly Camacho, [address] [place] [address] [address], [place], [address]. tel:[phone] [address], [place], [place], [id number], [place] tel:[phone] [place] No Information Ryanne Mueller. [address] [facility], [address], [place], [address], [place]. tel:[phone] Referring Provider: Burak Olivera, [address] [place] [address], [place], [address]. tel:[phone] [facility], [address] [place] [address] [address], [place], [place], [id number], [place] tel:[phone] [place] No Information Ezekiel Donis. . Referring Provider: Bradly Camacho, [address] [facility] [address], [place], [address]. tel:[phone] [facility] [address] [place] [address], [place], [place], [address], [place] tel:[phone] [place] No Information Rona Guerrero. . Referring Provider: Burak Olivera, [address] [place] [address] [address], [place], [address]. tel:[phone] [facility], [address] [place] [address], [place], [place], [id number], [place] tel:[phone] [place] No Information Ezekiel Donis. . Referring Provider: Bradly Camacho, [address] [facility] [address], [place], [address]. tel:[phone], [id number], [place] tel:[phone] [place] No Information Jose Juan Moore. . Referring Provider: Burak Olivera, [address] [place] [address] [address], [place], [address]. tel:[phone] [facility], [address] [address], [place], [place], [address], [place] tel:[phone] Dm No Information Ezekiel Donis. . Referring Provider: Bradly Camacho, [address] [place] [address] [address], [place], [address]. tel:[phone] [address], [place], [place], [address], [place] tel:[phone] Dm No Information Ryanne Mueller. [id number] [place] [address], [address], [place], [address], [place]. tel:[phone] Referring Provider: Burak Olivera, [address] [place] [address] [address], [place], [address]. tel:[phone] [facility], [address] [facility] [address], [place], [place], [address], [place] tel:[phone] Dm No Information Jose Juan Moore. . Referring Provider: Burak Olivera, [address] [place] [address] [address], [place], [address]. tel:[phone] [facility] [address] [facility] [address], [place], [place], [id number], [place] tel:[phone] [place] No Information Ryanne Mueller. [address] [facility], [address], [place], [address], [place]. tel:[phone] Referring Provider: Burak Olivera, [address] [place] [address] [address], [place], [address]. tel:[phone] [facility], [address] [facility] [address], [place], [place], [id number], [place] tel:[phone] [place] No Information Jose Juan Moore. . Referring Provider: Burak Olivera, [address] [place] [address] [address], [place], [address]. tel:[phone] [facility] [address] [facility], [place], [place], [id number], [place] tel:[phone] [place] No Information Ezekiel Donis. . Referring Provider: Bradly Camacho, [address] [facility] [address], [place], [address]. tel:[phone] [facility] [address] [facility] [address], [place], [place], [address], [place] tel:[phone] Dm No Information Ezekiel Donis. . Referring Provider: Bradly Camacho, [address] [facility] [address], [place], [address]. tel:[phone] [facility], [address] [facility] [address], [place], [place], [address], [place] tel:[phone] Dm No Information Ryanne Mueller. [address] [facility], [address], [place], [facility], [place]. tel:[phone] Referring Provider: Burak Olivera, [address] [place] [address] [address], [place], [address]. tel:[phone] [facility], [address] [place] [address], [place], [place], [address], [place] tel:[phone] [place] No Information Jeremi Cruz. . Referring Provider: Burak Olivera, [address] [place] [address] [address], [place], [address]. tel:[phone] [facility], [address] [place] [address], [place], [place], [address], tel:[phone] Dm No Information Jose Juan Moore. . Referring Provider: Burak Olivera, [address] [place] [address] [address], [place], [address]. tel:[phone] [facility], [address] [place] [address], [place], [place], [address], [place] tel:[phone] [place] No Information Ezekiel Donis. . Referring Provider: Bradly Camacho, [address] [facility] [address], [place], [address]. tel:[phone] [facility] [address] [address], [place], [place], [address], [place] tel:[phone] Dm No Information Ezekiel Donis. . Referring Provider: Bradly Camacho, [address] [facility] [address], [place], [address]. tel:[phone] [facility], [address] [facility] [address], [place], [place], [address], [place] tel:[phone] [place] No Information Ryanne Mueller. [address] [facility], [address], [place], [address], [place]. tel:[phone] Referring Provider: Burak Olivera, [address] [place] [address] [address], [place], [address]. tel:[phone] [facility], [address] [place] [address], [place], [place], [address], tel:[phone] [place] No Information Ezekiel Donis. . Referring Provider: Bradly Camacho, [address], [place], [address]. tel:[phone] [address], [place], [place], [address], [place] tel:[phone] Dm No Information Jose Juan Moore. . Referring Provider: Burak Olivera, [address] [place] [address] [address], [place], [address]. tel:[phone] [address] [facility] [address], [place], [place], [address], [place] tel:[phone] Dm No Information Ezekiel Donis. . Referring Provider: Bradly Camacho, [address], [place], [address]. tel:[phone] [address], [place], [place], [address], [place] tel:[phone] Dm No Information Ezekiel Donis. . Referring Provider: Bradly Camacho, [address], [place], [address]. tel:[phone], [place], [place], [address], [place] tel:[phone] [place] No Information Ezekiel Donis. . Referring Provider: Bradly Camacho, [address], [place], [address]. tel:[phone] [facility], [place], [place], [address], [place] tel:[phone] [place] No Information estefania Moore. . [facility], [place], [place], [address], tel:[phone] Dm No Information Ryanne Mueller. [address] [facility], [address], [place], [facility], . tel:[phone] [facility], [place], [place], [address], [place] tel:[phone] Dm No Information Jose Juan Oscar. . [facility], [place], [place], [address], tel:[phone] [place] No Information Ryanne Mueller. [address] [place] [address], [address], [place], [facility], . tel:[phone] [facility], [place], [place], [address], [place] tel:[phone] Dm No Information Jose Juan Moore. . [facility], [place], [place], [address], [place] tel:[phone] Dm No Information Ryanne Mueller. [address] [place] [address], [address], [place], [facility], . tel:[phone] [facility], [place], [place], [address], [place] tel:[phone] Dm No Information Ezekiel Donis. . Referring Provider: Jordy Keller, [address], [place], [address]. tel:[phone] [facility], [place], [place], [address], [place] tel:[phone] [place] No Information Jose Juan Moore. . [facility] [facility] [address], [place], [place], [address], tel:[phone] [place] No Information Eezkiel Donis. . Referring Provider: Jordy Keller, [address], [place], [address]. tel:[phone] [facility] [facility] [address], [place], [place], [address], [place] tel:[phone] Dm No Information Ezekiel Donis. . Referring Provider: Jordy Keller, [address], [place], [address]. tel:[phone] [facility] [address], [place], [place], [address], tel:[phone] Dm No Information Jose Juan Moore. . [facility] [address], [place], [place], [address], [place] tel:[phone] [place] No Information Ryanne Mueller. [address] [facility], [address], [place], [facility], . tel:[phone] [facility] [address], [place], [place], [address], [place] tel:[phone] [place] No Information Ezekiel Donis. . Referring Provider: Jordy Keller, [address], [place], [address]. tel:[phone] [facility] [facility] 300, [place], [place], [address], tel:[phone] Dm No Information Jeremi Cruz. . [facility] [facility] [address], [place], [place], [address], tel:[phone] [place] No Information Ezekiel Donis. . Referring Provider: Jordy Veronika Krishna, [address], [place], [address]. tel:[phone] [facility] [address], [place], [place], [address], tel:[phone] Dm No Information Ezekiel Donis. . Referring Provider: Jordy Veronika [place], [address], [place], [address]. tel:[phone], [place], [place], [address], tel:[phone] [place] No Information Ryanne Mueller. [address] [facility], [address], [place], [facility], . tel:[phone] [facility] [address], [place], [place], [address], tel:[phone] Dm No Information Ezekiel Donis. . Referring Provider: Jordy Veronika Keller, [address], [place], [address]. tel:[phone] [facility] [address], [place], [place], [address], tel:[phone] Dm No Information Ryanne Mueller. [address] [facility], [address], [place], [facility], . tel:[phone] [facility] [address], [place], [place], [address], tel:[phone] Dm No Information Ezekiel oDnis. . Referring Provider: Jordyteresa Keller, [address], [place], [address]. tel:[phone] [facility], [address], [place], [place], [address], [place] tel:[phone] Dm No Information Hisky Oscar. . [facility], [address], [place], [place], [address], [place] tel:[phone] Dm No Information Ezekiel Donis. . Referring Provider: Jordy Keller, [address], [place], [address]. tel:[phone] [facility], [address], [place], [place], [address], [place] tel:[phone] Dm No Information Hisky Oscar. . [facility], [address], [place], [place], [address], [place] tel:[phone] Dm No Information Hisky Oscar. . [facility], [address], [place], [place], [address], [place] tel:[phone] [place] No Information Ezekiel Donis. . Referring Provider: Jordy Keller, [address], [place], [address]. tel:[phone] [facility], [place], [place], [address], [place] tel:[phone] [place] No Information Ezekiel Donis. . Referring Provider: Jordy Keller, [address], [place], [address]. tel:[phone] [facility], [place], [place], [address], [place] tel:[phone] Dm No Information Hisky Oscar. . [facility], [place], [place], [address], [place] tel:[phone] [place] No Information Ezekiel Donis. . [facility] [facility] [address], [place], [place], [address], tel:[phone] Dm No Information Ryanne Mueller. [address] [facility], [address], [place], [facility], [place]. tel:[phone] [facility], [address] [facility] [address], [place], [place], [address], [place] tel:[phone] [place] No Information Lamberto Mayers. . [facility] [facility] 300, [place], [place], [address], tel:[phone] [place] No Information Jose Juan Oscar. . [facility] [facility] [address], [place], [place], [address], [place] tel:[phone] [place] No Information Jose Juan Oscar. . [facility], [address] [facility] [address], [place], [place], [address], [place] tel:[phone] Dm No Information Ezekiel Donis. . [facility] [facility] [address], [place], [place], [address], [place] tel:[phone] [place] No Information Jeremi Cruz. . [facility] [facility] [address], [place], [place], [address], [place] tel:[phone] [place] No Information Ryanne Mueller. [address] [facility], [address], [place], [facility], . tel:[phone] [facility] [facility] [address], [place], [place], [address], [place] tel:[phone] [place] No Information Ezekiel Donis. . [facility], [address] [facility] [address], [place], [place], [address], tel:[phone] [place] No Information Ezekiel Donis. . [facility] [facility] [address], [place], [place], [address], tel:[phone] Dm No Information Jeremi Cruz. . [facility] [facility] [address], [place], [place], [address], tel:[phone] [place] No Information Jose Juan Moore. . [facility] [facility] [address], [place], [place], [address], tel:[phone] [place] No Information Ezekiel Donis. . Family History [...]
--- NOTE | ~2025-06-19 | XR_ITS ---
Examination: XR ankle RT min 3V Clinical History: tenderness lateral aspect after inversion fall Comparison: None Technique: 4 views right ankle Findings/impression: 1. No fracture or dislocation right ankle. 2. Lateral ankle soft tissue swelling. Reviewed, dictated and finalized at location R.
[2025-06-19 09:34] VITALS: BP 117/75; PULSE 81; RESP 16; TEMP 36.4; O2SAT 99
--- OUTSIDE RECORDS SUMMARY | 2025-06-19 09:34 | XMS_ITS | Clinical Summary ---
Author Organization [facility] Address [address] [place] [address] Phone Care Team Providers Care Component Prep Operator Name Role Phone MAIKEL ARREDONDO, ROSSY Holland Primary Care Provider [phone] Reason for Visit and Chief Complaint The Chief Complaint is: PT IS COVID POS. PT C/O EAR PRESSURE, FEELS LIKE FLUID IN THEM, RT ONE IS CLOGGED Problems Includes: Problems addressed during this encounter and other active Problems All Visits Onset Date Resolved Date Provider Condition S tatus 07/12/2022 CANDY MONTANO [employer] CHIEF-C Act krishna Last Documented On 2 9:34AM ; [facility] 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 Migrainosus 07/12/2015 FELIPA DAVIS [employer] CHIEF-BC Active Last Documented On 5 6:11PM ; [facility] Note: Unchanged Plan of Treatment - The options include close observation - Last Documented On 07/14/2023 5:30PM ; [facility] - Watch for signs/symptoms of infection, return to the clinic if seen - Last Documented On 07/14/2023 5:30PM ; [facility] Instructions to patient Watch for signs/symptoms of infection, return to the clinic if seen Last Documented On 3 4:53PM ; [facility] Assessments Includes: Assessments from this encounter Findings - Acute suppurative otitis media of both ears [Acute suppurative otitis media without spontaneous rupture of ear drum, bilateral] - Last Documented On 07/14/2023 5:30PM ; [facility] Instructions Includes: Instructions from this encounter Instructions to patient Watch for signs/symptoms of infection, return to the clinic if seen Last Documented On 3 4:53PM ; [facility] Medical Equipment - Implanted Devices Includes: [...] take one tablet on day 2-5 [address]: [address], [id number] - Last Documented On 07/14/2023 5:02PM By Candy MAYES ; [facility] Current Medications (continue as prescribed) Lisinopril 10 MG Oral Tablet 08/04/2023 Provider: BRAVO DILL NP Diagnosis: Last Documented On 09/26/2023 7:15PM By Mireya Carrillo MA ; [facility] Nexplanon 68 MG Subcutaneous Implant 07/14/2023 Prov ider: Diagnosis: Last Documented On 07/14/2023 4:40PM By Mireya Carrillo MA ; [facility] Vitamin D (Ergocalciferol) 90482 UNIT Oral Capsule Provider: Diagnosis: once weekly Last Documented On 2 12:03PM By BYRON SCOTT ; [facility] GoodSense Vitamins 28-0.8 MG Oral Tablet 12/24 Provider: Diagnosis: PRN Last Documented On 2 11:22AM By BYRON SCOTT ; [facility] EQ Ibuprofen 200 MG Oral Tablet 09/17/2019 Provider: Diagnosis: 3 tablets Q8H Last Documented On 0 3:05PM By Pili POWELL ; [facility] Tylenol 325MG Oral Tablet 02/08/2019 Provider: Diagnosis: PRN-fever & pain Last Documented On 9 10:29AM By BYRON SCOTT ; [facility] Singulair 10MG Oral Tablet 10/14/2017 Provider: SHANT Samaniego Diagnosis: Allergic rhiniti s due to pollen One tablet daily Last Documented On 8 2:46PM By SHANT STRATTON PA-C ; [facility] ProAir HFA 108 (90 Base)MCG/ ACT Inhalation Aerosol Solution 08/24/2017 Provider: PILI GARZA METER READER CHIEF- Diagnosis: Wheezing use as directed 2 puffs every 4-6 hours as neede d Last Documented On 7 1:23PM By PILI [facility]- ; [facility] Past Medications on file Zofran 8 MG Oral Tablet 12/20/2019 - 12/25/2019 Provid er: RODDY DELAROSA PA-C Diagnosis: 1 tab po q 8 hrs PRN. Last Documented On 0 9:47AM By RODDY DELAROSA PA-C ; [facility] Topamax 50 MG Oral Tablet 12/17/2019 - 02/15/2020 Prov ider: RODDY DELAROSA PA-C Diagnosis: One tablet twice a day--this is an increase. Last Documented On 0 9:49AM By RODDY DELAROSA PA-C ; [facility] Cyclobenzaprine HCl 10 MG Oral Tablet 12/03/2019 - 12/08/2019 Provider: LUIZ JAIMES MD Diagnosis: One tablet daily muscle relaxer Last Documented On 0 11:50AM By LUIZ ROLON MD ; [facility] Aviane 0.1-20 MG-MCG Oral Tablet 11/17/2019 - 02/09/2020 Provider: RUTHANN ROMANO RN MEGHA Diagnosis: Encounter for in itial prescription of contraceptive pills One tablet daily TAKE DIR ECTED START Friday AFTER NEXT MENSES back up method pack one Last Documented On 0 11:58AM By RUTHANN ROMANO MEGHA- ; [facility] Medications Administered Includes: Administered Medications [...] 99 Last Documented: On 07/14/2023 4:42PM ; [facility] Results Includes: Results discussed during [...] 07/14/2023 Last Documented On 3 5:30PM ; [facility] Smoking Status Unknown Procedures and Surgical History Includes: Procedures from this encounter Procedures Code Diagnosis Performing Provider Service L ocation Service Date Pt to use OTC fever/pain product as needed per product instruction.~ Last Documented On 3 4:53PM ; [facility] plan of care reviewed and agreed to Last Documented On 3 4:53PM ; [facility] use of tobacco assessment performed 1000F Last Documented On 3 4:41PM ; [facility] Medical History Includes: Medical History addressed during this encounter Description Last Updated Taking OTC medications 07/14/2023 Last Documented On 3 5:30PM ; [facility] Family History Includes: Family History addressed during [...] Active Last Documented On 4 7:16PM ; [facility] Penicillins Allergy Skin Rashes / Er uption of skin, Shortness of Breath / Dyspnea, keflex is ok 06/09/2013 Active Last Documented On 4 7:16PM ; [facility] Macrobid Allergy Skin Rashes / Eruption of skin, Nausea 0 03/07/2015 Active Last Documented On 4 7:16PM ; [facility] Doxycycline Hyclate Allergy Skin Rashes / Eruption of skin, Hives / Urticaria 07/08/2013 Active Last Documented On 4 7:16PM ; [facility] Amoxicillin Allergy Skin Rashes / Er uption of skin, Shortness of Breath / Dyspnea, does have epi pen 03/07/2015 Acti ve Last Documented On 4 7:16PM ; [facility] Encounters Encounter Provider Location Date Check-In Time Check-Out Time Diagnosis COVID SICK VISIT- ESTABLISHED PATIENT CANDY Tolbert CHARMAINE JAYP-C [facility] 07/14/20 23 4:05PM 4:52PM Otitis Media Acute Suppurative Both Ears Insurance Includes: Active Insurance Policies Plan Name Member ID Group # Subscriber Relationship Effect krishna Dates 1 - [facility] [id number] GARRY SPANGLER horace 2 - MED[facility]ID [facility] [id number] JESSICA SPANGLER Self Clinical Notes Includes: Clinical Notes from this encounter * Progress note Date Encounter Last Documented by 07/14/2023 COVID SICK VISIT- ESTABLISHED IRINA VIOLETA Last documented on 07/14/2023; 5:30 PM, CANDY POWELL; [facility] Chief Complaint The Chief Complaint [...] days, 0 refills - Vitamin D (Ergocalciferol) 61685 UNIT Oral Capsule as directed once weekly, [...]
--- OUTSIDE RECORDS SUMMARY | 2025-06-19 09:34 | XMS_ITS ---
Care Plan - [facility] Created on: June 19, 2025 ANÍBAL JESSICA Holland : 1995 Sex: Female Author Organization [facility] Address [address] [place] [address] Phone Care Team Providers Care Venetian Blind Installer Name Role Phone MAIKEL ARRDEONDO, ROSSY Holland Primary Care Provider [phone]
--- OUTSIDE RECORDS SUMMARY | 2025-06-19 09:34 | XMS_ITS | Clinical Summary ---
Author Organization [facility] Address [address] [place] [address] Care Team Providers Care Mandrel Cleaner Name Role Phone EsquivelDavid parra DO Primary Care Provider [phone] Source Comments [facility],non-owned Affiliates and Associated Physician Practices is amultiple site organization consisting of ambulatory clinics and hospital sitesin [place], [place], [place] and [place]. This disclosure is being madepursuant to the Care Everywhere program and may not contain all information available regarding this patient. Last updated 18.[facility] Allergies Active Allergy Reactions Criticality Noted Date [...] (04/17/2022): Added automatically from request for surgery [id number] Pre-eclampsia, severe, with delivery 04/09/2021 Gestational diabetes [...] CERDA Subscriber ID:Not on file (Home) Address: [address] [place] [id number] Payer ID:Not on file Group ID:Not on file Type:Self Pay Address: [facility] Advance Directives * Full Code (Latest Code Status on File) Date Activated Date Inactivated Comments 03/29/2022 1:06 AM 03/30/2022 1:57 PM * Full Code Date Activated Date Inactivated Comments 03/28/2022 4:45 PM 03/29/2022 1:06 AM Care Teams Mandrel Cleaner Relationship Specialty Start Date End Date David Esquivel DO [address] [place] [address] PCP - General Family Medicine 04/22/21
--- OUTSIDE RECORDS SUMMARY | 2025-06-19 09:34 | XMS_ITS | Encounter Summary ---
Author Organization [facility] Address [address] [place] [address] Care Team Providers Care Fabrication And Assembly Supervisor Name Role Phone David Esquivel DO Primary Care Provider [phone] Robbie Gray MD Unavailable [phone] Encounter Details Date Type Department Care Team (Late st Contact Info) Description 03/28/2022 Ophth Exam [facility] [address] [place] [phone] Adams Magallon MD [address] [place] [phone] Social History Tobacco Use Types Packs/Day [...] on filedocumented in this encounter Care Teams Fabrication And Assembly Supervisor Relationship Specialty Start Date End Date David Esquivel DO [address] [place] [address] PCP - General Family Medicine 04/22/21 Robbie Gray MD [address] [id number] PCP - Attributed-[facility] Medicaid [place] 11/30/21 09/11/23 documented as of this encounter
--- OUTSIDE RECORDS SUMMARY | 2025-06-19 09:34 | XMS_ITS | Clinical Summary ---
Author Organization [facility] Address [address] [place] [address] Phone Care Team Providers Care Athletic Director Name Role Phone MAIKEL ARREDONDO, ROSSY Holland Primary Care Provider [phone] Reason for Visit and Chief Complaint The Chief Complaint is: cough, headache, sore throat Problems Includes: Problems addressed during this encounter and other active Problems All Visits Onset Date Resolved Date Provider Condition S tatus 07/12/2022 ALYSSA MONTANO [employer] Act krishna Last Documented On 2 9:34AM ; [facility] 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 Migrainosus 07/12/2015 FELIPA DAVIS [employer]-BC Active Last Documented On 5 6:11PM ; [facility] Note: Unchanged Plan of Treatment - Return to the clinic if condition worsens or new symptoms arise - Last Documented On 09/24/2023 12:15PM ; [facility] - Patient will call for appointment as needed - Last Documented On 09/24/2023 12:15PM ; [facility] Instructions to patient Instructions for patient Last Documented On 4 12:08PM ; [facility] Intervention and counseling on cessation of tobacco use Last Documented On 4 8:59AM ; [facility] Assessments Includes: Assessments from this encounter Findings - [J06.9 - Acute upper respiratory infection, unspecified] Acute upper respiratory infection - Last Documented On 09/24/2023 12:15PM ; [facility] Instructions Includes: Instructions from this encounter Instructions to patient Instructions for patient Last Documented On 4 12:08PM ; [facility] Intervention and counseling on cessation of tobacco use Last Documented On 4 8:59AM ; [facility] Medical Equipment - Implanted Devices Includes: Current Devices No Medical Equipment Recorded Medications Includes: Medications discussed during this encounter and other current Medications Current Medications (continue as prescribed) Lisinopril 10 MG Oral Tablet 08/04/2023 Provider: BRAVO DILL NP Diagnosis: Last Documented On 09/26/2023 7:15PM By Mireya Carrillo MA ; [facility] Nexplanon 68 MG Subcutaneous Implant 07/14/2023 Prov ider: Diagnosis: Last Documented On 07/14/2023 4:40PM By Mireya Carrillo MA ; [facility] Vitamin D (Ergocalciferol) 21634 UNIT Oral Capsule Provider: Diagnosis: once weekly Last Documented On 2 12:03PM By BYRON SCOTT ; [facility] GoodSense Vitamins 28-0.8 MG Oral Tablet 12/24 Provider: Diagnosis: PRN Last Documented On 2 11:22AM By BYRON SCOTT ; [facility] EQ Ibuprofen 200 MG Oral Tablet 09/17/2019 Provider: Diagnosis: 3 tablets Q8H Last Documented On 0 3:05PM By Pili Vasques [employer]-C ; [facility] Tylenol 325MG Oral Tablet 02/08/2019 Provider: Diagnosis: PRN-fever & pain Last Documented On 9 10:29AM By BYRON SCOTT ; [facility] Singulair 10MG Oral Tablet 10/14/2017 Provider: SHANT Samaniego Diagnosis: Allergic rhiniti s due to pollen One tablet daily Last Documented On 8 2:46PM By SHANT STRATTON PA-C ; [facility] ProAir HFA 108 (90 Base)MCG/ ACT Inhalation Aerosol Solution 08/24/2017 Provider: PILI GARZA [employer] Diagnosis: Wheezing use as directed 2 puffs every 4-6 hours as neede d Last Documented On 7 1:23PM By PILI MAYES- ; [facility] Medications Administered Includes: Administered Medications from this encounter No Administered Medications Recorded Vital Signs Includes: Vital Signs from this encounter Vital Name 09/24/2023 08:58A Pulse Rate-Sitting (bpm) 85 Temp-Oral (F) 98.1 Height (in) 62 Weight (lb) 263 Body Mass Index 48.1 Body Surface Area 2.1 Oxygen Saturation (%) 97 Last Documented: On 09/24/2023 8:59AM ; [facility] Results Includes: Results discussed during this encounter Group A strep [facility] Ordered by EZE VICKERS APRN on 2023 Collected: Reported: 09/24/2023 09:02 Last Documented On 4 9:02AM ; [facility] Reviewed on 09/24/2023; All test results are final unless otherwise noted. Rapid Strep neg N (Normal) Last Documented On 4 9:02AM ; [facility] LOT # AND EXP. DATE [id number] 05/25/26 N (Normal) Last Documented On 4 9:02AM ; [facility] INT. QC ACCEPTABLE? yes N (Normal) Last Documented On 4 9:02AM ; [facility] History of Present Illness Includes: History of [...] 09/24/2023 Last Documented On 4 12:15PM ; [facility] Smoking Status Unknown Procedures and Surgical History Includes: Procedures from this encounter Procedures Code Diagnosis Performing Provider Service L ocation Service Date intervention and counseling on cessation of tobacco use 4000F Last Documented On 4 8:59AM ; [facility] use of tobacco assessment performed 1000F Last Documented On 4 8:59AM ; [facility] review of medications documented 1160F Last Documented On 4 8:59AM ; [facility] Patient verbalizes understanding Last Documented On 4 12:08PM ; [facility] Increase fluids Last Documented On 4 12:08PM ; [facility] Clinical summary provided to patient Last Documented On 4 12:08PM ; [facility] Medical History Includes: Medical History addressed during this encounter Description Last Updated Not taking OTC medications 09/24/2023 Last Documented On 4 12:15PM ; [facility] Family History Includes: Family History addressed during [...] 4 7:16PM ; [facility] Penicillins Allergy Skin Rashes / Er uption of skin, Shortness of Breath / Dyspnea, keflex is ok 06/09/2013 Active Last Documented On 4 7:16PM ; [facility] Macrobid Allergy Skin Rashes / Eruption of skin, Nausea 0 03/07/2015 Active Last Documented On 4 7:16PM ; [facility] Doxycycline Hyclate Allergy Skin Rashes / Eruption of skin, Hives / Urticaria 07/08/2013 Active Last Documented On 4 7:16PM ; [facility] Amoxicillin Allergy Skin Rashes / Er uption of skin, Shortness of Breath / Dyspnea, does have epi pen 03/07/2015 Acti ve Last Documented On 4 7:16PM ; [facility] Encounters Encounter Provider Location Date Check-In Time Check-Out Time Diagnosis COVID SICK VISIT- ESTABLISHED PATIENT EZE VICKERS APRN [facility] 09/24/19 24 8:49AM 9:46AM Upper Respiratory Infection Acute Insurance Includes: Active Insurance Policies Plan Name Member ID Group # Subscriber Relationship Effect krishna Dates 1 - [facility] [id number] GARRY SPANGLER horace 2 - MED[employer]ID [facility] [id number] JESSICA SPANGLER Self Clinical Notes Includes: Clinical Notes from this encounter * Progress note Date Encounter Last Documented by 09/24/2023 COVID SICK VISIT- ESTABLISHED PA SAMUELNT Last documented on 09/24/2023; 12:15 PM, EZE VICKERS APRN; [facility] Chief Complaint The Chief Complaint is: Cough, [...] neg Normal LOT # AND EXP. DATE [id number] 05/25/26 Normal INT. QC ACCEPTABLE? yes Normal [...]
--- OUTSIDE RECORDS SUMMARY | 2025-06-19 09:34 | XMS_ITS | Clinical Summary ---
Author Organization [facility] Address [address] [place] [address] Phone Care Team Providers Care Time Clerk Name Role Phone MAIKEL ARREDONDO, ROSSY Holland Primary Care Provider [phone] Reason for Visit and Chief Complaint The Chief Complaint is: PT C/O SORE THROAT Problems Includes: Problems addressed during this encounter and other active Problems All Visits Onset Date Resolved Date Provider Condition S tatus 07/12/2022 ALYSSA MONTANO [employer] Act krishna Last Documented On 2 9:34AM ; [facility] 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 Migrainosus 07/12/2015 FELIPA DAVIS [employer]-BC Active Last Documented On 5 6:11PM ; [facility] Note: Unchanged Plan of Treatment - Return to the clinic if condition worsens or new symptoms arise - Last Documented On 09/26/2023 7:33PM ; [facility] Strep test was negative [...] - Last Documented On 09/26/2023 7:33PM ; [facility] Assessments Includes: Assessments from this encounter Findings - [J02.9 - Acute pharyngitis, unspecified] Acute pharyngitis - Last Documented On 09/26/2023 7:33PM ; [facility] Medical Equipment - Implanted Devices Includes: Current Devices No Medical Equipment Recorded Medications Includes: Medications discussed during this encounter and other current Medications Discontinued / Stopped on this date on 09/15/2023 Fluconazole 150 MG Oral Tablet Provider: Diagnosis: Last Documented On 09/26/2023 7:16PM By Mireya Carrillo MA ; [facility] Current Medications (continue as prescribed) Lisinopril 10 MG Oral Tablet 08/04/2023 Provider: BRAVO DILL NP Diagnosis: Last Documented On 09/26/2023 7:15PM By Mireya Carrillo MA ; [facility] Nexplanon 68 MG Subcutaneous Implant 07/14/2023 Prov ider: Diagnosis: Last Documented On 07/14/2023 4:40PM By Mireya Carrillo MA ; [facility] Vitamin D (Ergocalciferol) 84494 UNIT Oral Capsule Provider: Diagnosis: once weekly Last Documented On 2 12:03PM By BYRON SCOTT ; [facility] GoodSense Vitamins 28-0.8 MG Oral Tablet 12/24 Provider: Diagnosis: PRN Last Documented On 2 11:22AM By BYRON SCOTT ; [facility] EQ Ibuprofen 200 MG Oral Tablet 09/17/2019 Provider: Diagnosis: 3 tablets Q8H Last Documented On 0 3:05PM By Pili ANDERSONC ; [facility] Tylenol 325MG Oral Tablet 02/08/2019 Provider: Diagnosis: PRN-fever & pain Last Documented On 9 10:29AM By BYRON SCOTT ; [facility] Singulair 10MG Oral Tablet 10/14/2017 Provider: SHANT Samaniego Diagnosis: Allergic rhiniti s due to pollen One tablet daily Last Documented On 8 2:46PM By SHANT STRATTON PA-C ; [facility] ProAir HFA 108 (90 Base)MCG/ ACT Inhalation Aerosol Solution 08/24/2017 Provider: PILI GARZA [facility] Diagnosis: Wheezing use as directed 2 puffs every 4-6 hours as neede d Last Documented On 7 1:23PM By PILI CALIXTO [facility] ; [facility] Medications Administered Includes: Administered [...] 99 Last Documented: On 09/26/2023 7:17PM ; [facility] Results Includes: Results discussed [...] 09/26/2023 Last Documented On 4 7:33PM ; [facility] Smoking Status Unknown Procedures and Surgical History Includes: Procedures from this encounter Procedures Code Diagnosis Performing Provider Service L ocation Service Date Pt to use prescription as ordered. Purpose of and use of medication discussed.~ Last Documented On 4 7:30PM ; [facility] Pt to use OTC fever/pain product as need ed per product instruction.~ Last Documented On 4 7:30PM ; [facility] use of tobacco assessment performed 1000F Last Documented On 4 7:16PM ; [facility] review of medications documented 1160F Last Documented On 4 7:30PM ; [facility] Clinical summary provided to patient Last Documented On 4 7:30PM ; [facility] Medical History Includes: Medical History addressed [...] Last Documented On 4 7:16PM ; [facility] Penicillins Allergy Skin Rashes / Er uption of skin, Shortness of Breath / Dyspnea, keflex is ok 06/09/2013 Active Last Documented On 4 7:16PM ; [facility] Macrobid Allergy Skin Rashes / Eruption of skin, Nausea 0 03/07/2015 Active Last Documented On 4 7:16PM ; [facility] Doxycycline Hyclate Allergy Skin Rashes / Eruption of skin, Hives / Urticaria 07/08/2013 Active Last Documented On 4 7:16PM ; [facility] Amoxicillin Allergy Skin Rashes / Er uption of skin, Shortness of Breath / Dyspnea, does have epi pen 03/07/2015 Acti ve Last Documented On 4 7:16PM ; [facility] Encounters Encounter Provider Location Date Check-In Time Check-Out Time Diagnosis COVID SICK VISIT- ESTABLISHED PATIENT TONYA FUENTES DNP [facility] 09/26/19 24 6:54PM 7:30PM Pharyngitis Acute Insurance Includes: Active Insurance Policies Plan Name Member ID Group # Subscriber Relationship Effect krishna Dates 1 - [facility] [id number] GARRY SPANGLER Yumiko horace 2 - MED[employer]ID [facility] [id number] JESSICA SPANGLER Self Clinical Notes Includes: Clinical Notes from this encounter * Progress note Date Encounter Last Documented by 09/26/2023 COVID SICK VISIT- ESTABLISHED PA SAMUELNT Last documented on 09/26/2023; 7:33 PM, TONYA FUENTES DNP; [facility] Chief Complaint The Chief Complaint is: PT [...]
--- OUTSIDE RECORDS SUMMARY | 2025-06-19 09:34 | XMS_ITS | Encounter Summary ---
Author Organization [facility] Healthcare Address [address] [place] [address] Care Team Providers Care Cytogenetic Technician Name Role Phone Los Luque MD Primary Care Provider [phone] Tucker Esquivel MD, Baldomero Malik Unavailable [phone] Encounter Details Date Type Department Care Team (Late Contact Info) Description 06/09/2025 Results [facility]-Up [facility] [address] [place] [address] Natividad Newberry, MEGHA [address] [place] [address] XR Elbow Left 3+ Vw Social History Tobacco Use Types Packs/Day Years Used Date Smoking Tobacco: Never Smokeless Tobacco: Never Alcohol Use Standard Drinks/Week Comments No 0 (1 standard drink = 0.6 oz pur e alcohol) [facility] Utilities Answer Date Recorded In the past 12 months has e [employer], gas, oil, or water [employer] threatened to shut off services in your [...] often do you attend chur ch or restorationism services? Never 11/02/2024 Do you belong to any clubs o r organizations such as jewish groups, unions, fraternal or athletic groups, or [...] staff should administer the PHQ-9) 0 04/12/2025 [facility] [place] of Occupat ional Health - Occupational Stress [...] [facility] in the [facility], were you homeless or living in [...] on filedocumented in this encounter Care Teams Cytogenetic Technician Relationship Specialty Start Date End Date Los Luque MD [address] [address] PCP - General Family Medicine 01/07/22 [place] [address] [place] [address] Consulting Physician Orthopedic Surgery 01/22/24 documented as of this encounter
--- OUTSIDE RECORDS SUMMARY | 2025-06-19 09:34 | XMS_ITS | Clinical Summary ---
Author Organization [facility] Address [address] [place] [address] Phone Care Team Providers Care Pan Cleaner Name Role Phone Unavailable Primary Care Provider [...] on file Legal Sex Female 2:50 PM ANGIOGRAPHY TECHNOLOGIST Gender Identity Not on file Sexual Orientation Not on file Last Filed Vital Signs Vital Sign Reading Time Taken Comments Blood Pressure 108/70 10/20/2023 10:49 AM ANGIOGRAPHY TECHNOLOGIST Pulse 96 10/20/2023 10:49 AM ANGIOGRAPHY TECHNOLOGIST Temperature 36.1 C (97 F) 10/20/2023 10:49 AM ANGIOGRAPHY TECHNOLOGIST Respiratory Rate 20 10/20/2023 10:49 AM ANGIOGRAPHY TECHNOLOGIST Oxygen Saturation 97% 10/20/2023 10:49 AM ANGIOGRAPHY TECHNOLOGIST Inhaled Oxygen Concentration - - Weight 109.3 kg (241 lb) 10/01/2021 1:53 PM ANGIOGRAPHY TECHNOLOGIST Height 157.5 cm (5' 2) 10/01/2021 1:53 PM ANGIOGRAPHY TECHNOLOGIST Body Mass Index 44.08 10/01/2021 1:53 PM ANGIOGRAPHY TECHNOLOGIST Plan of Treatment Health Maintenance Due Date [...] to complete this topic Insurance MEDICAID [place] [address]
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
--- OUTSIDE RECORDS SUMMARY | 2025-06-19 09:34 | XMS_ITS | Clinical Summary ---
Author Organization [facility] Address [address] [place] [id number] Care Team Providers Care Hoist Worker Name Role Phone Los Luque MD Primary Care Provider [phone] Tucker Esquivel MD, Baldomero Malik Unavailable [phone]- [phone] Allergies Active Allergy Reactions Criticality Noted Date [...] Interesting rash. No in sex noted with learning and development assistant exam at home. She does note it [...] 07/09/2024 Assessment & Plan (07/09/2024 12:56 PM TRANSIT PLANNING DIRECTOR): No improvement with cefdinir. Prescribed a course [...] 07/09/2024 Assessment & Plan (07/09/2024 12:56 PM TRANSIT PLANNING DIRECTOR): See discussion above. Insulin resistance 04/06/2024 Assessment [...] know and as she may be switching DECONTAMINATOR providers. She does not desire right now (possibly in next 1-2 years) so recommend she use condoms if Nexplanon removed. We also discussed metformin as an option although would still not be contraception which she understands. Assessment & Plan (08/10/2024 11:16 AM TRANSIT PLANNING DIRECTOR): Chronic problem. She did very well with [...] exercise. Assessment & Plan (08/10/2024 11:16 AM TRANSIT PLANNING DIRECTOR): Continue working on healthy diet and exercise, [...] home. Assessment & Plan (10/24/2023 12:17 PM TRANSIT PLANNING DIRECTOR): Started on lisinopril July, reports she has had a dry cough since then. Will discontinue lisinopril and start losartan 25 mg daily. Encouraged patient to continue checking blood pressure periodically at home she will notify office for readings consistently greater than 130 systolic. Muscle strain 10/24/2023 Assessment & Plan (10/24/2023 12:19 PM TRANSIT PLANNING DIRECTOR): Continue tramadol. Instructed patient to continue ibuprofen [...] 10/24/2023 Assessment & Plan (10/24/2023 12:20 PM TRANSIT PLANNING DIRECTOR): Discontinue nystatin. Recommended use of ketoconazole shampoo such as Selsun blue to affected areas a few times per week. Thoroughly dry skin after bathing. Apply clotrimazole cream twice daily, this can be purchased [id number]. Follow- up if no improvement. Upper respiratory tract infection 10/24/2023 Assessment & Plan (10/24/2023 12:27 PM TRANSIT PLANNING DIRECTOR): Patient with nasal congestion and sinus pressure [...] 08/05/2023 Assessment & Plan (08/05/2023 1:33 PM TRANSIT PLANNING DIRECTOR): Recommend OTC hydrocortisone to area. Will also place referral to cart driver for testing. Family history of early CAD 08/05/2023 Assessment & Plan (08/05/2023 1:33 PM TRANSIT PLANNING DIRECTOR): Start lisinopril. Lipid panel ordered. Will also place referral to Cardiology as dad had 1st NM in his 30s. Disorder of placenta 08/04/2023 [...] follow. Assessment & Plan (08/10/2024 11:15 AM TRANSIT PLANNING DIRECTOR): Continue 50k weekly. Assessment & Plan (06/10/2024 6:20 PM CDT): Vitamin-D = 27 despite weekly vitamin-D supplementation. Assessment & Plan (04/06/2024 12:59 PM CDT): Chronic, uncontrolled Restart ergocalciferol 50 K once a week Assessment & Plan (12/16/2023 5:40 PM CDT): Taking 10,000 international units daily since 07/2023 Will check labs today plan for referral if no improvement. Assessment & Plan (08/05/2023 1:32 PM TRANSIT PLANNING DIRECTOR): Not currently taking supplement. Will check vitamin-D level and plan accordingly. Cystic fibrosis 08/04/2023 Overview (08/04/2023): Carrier - FOB - neg. Physical exam, annual 03/21/2023 Assessment & Plan (06/10/2024 6:21 PM CDT): Preventive exam; reviewed recommended preventive screenings and vaccinations. Encourage annual flu vaccine. Wear sunscreen/protective clothing when outdoors. -scheduled with children counselor later this week Assessment & Plan (03/21/2023 9:47 AM CDT): Preventive exam; reviewed recommended preventive screenings and vaccinations. Encourage annual flu vaccine. Wear sunscreen/protective clothing when outdoors. hypertension 03/21/2023 Assessment & Plan (08/05/2023 1:32 PM TRANSIT PLANNING DIRECTOR): Will start lisinopril. Reviewed lifestyle recommendations as well. Labs ordered. Will continue to monitor. Red flags reviewed. Assessment & Plan (03/21/2023 9:47 AM CDT): Reviewed hospitalization records and labs. Blood pressure is well controlled with current regimen, labetalol 200 mg t.i.d.. Patient is following with children counselor now, Dr. Sugar purvis. LFTs trending down and hospital discharge, plan to repeat labs in 2 weeks. Follow up with children counselor scheduled 04/01/2023. Patient continues to have mild nausea with dull headache, prescribed Zofran p.r.n. scheduled for follow-up with Neurology 05/13/2023 Mixed hyperlipidemia 03/21/2023 Assessment & Plan (08/04/2023 3:42 PM TRANSIT PLANNING DIRECTOR): Most recent lipid panel reviewed. Continue to [...] (08/04/2023): Added automatically from request for surgery [id number] Added automatically from request for surgery [id number] Gestational diabetes mellitus, class A2 03/12/20 Overview [...] Description 06/09/2025 Results [facility] [address] [address] Natividad Newberry NP XR Elbow Left 3+ Vw 06/07/2025 4:22 PM CDT - 06/07/2025 11:59 PM CDT Hospital Encounter [facility] [address] [place] [address] Injury of left elbow, initial encounter Discharge Disposition: Discharge to home or self care 06/07/2025 Telephone [facility] [address] [phone] Los Luque MD Additional Services Or Orders 04/12/2025 11:00 AM CDT Office Visit [facility] [address] [place] [id number] Addis Reddy NP Rash 04/05/2025 6:15 PM CDT Office Visit [facility] [place] [address] [place] [id number] Kimmie Montaño NP Sore throat (Primary Dx); Suspected COVID-19 virus infection; Acute nasopharyngitis; Rash 03/30/2025 9:35 AM CDT Lab [facility] [address] [place] [id number] Abnormal bruising; Vitamin D deficiency 03/30/2025 Results [facility] [address] [phone] Renata Madison, MEGHA Vitamin D 25 hydroxy, Ferritin, Iron profile w/ IBC, Additional followed-up results: 2 03/25/2025 Telephone [facility] Scheduling [address] [place] [address] Talita Vallejo from Last 3 Months Immunizations [...] drink = 0.6 oz pur e alcohol) [facility] Utilities Answer Date Recorded In the past [...] How often do you attend chur or christian services? Never 11/02/2024 Do you belong to any clubs o r organizations such as adventist groups, unions, fraternal or athletic groups, or [...] staff should administer the PHQ-9) 0 04/12/2025 [facility] - Occupational Stress Questionnaire Answer Date [...] were you homeless or living in a prison (including now)? No 11/02/2024 Personal Safety Answer [...] Meng Walton M.D. MF: [place] Report ID: [id number] Reading Location: [id number] Procedure Note Meng Walton MD - 06/08/2025 [...] Meng Walton M.D. MF: [place] Report ID: [id number] Reading Location: [id number] Natividad Newberry LEAD MANUFACTURING TECHNICIAN IMG XR PROCEDURES Final Res ult * [...] Meng Walton M.D. MF: [place] Report ID: [id number] Reading Location: [id number] Procedure Note Meng Walton MD - 06/08/2025 [...] signed by Meng PERRY: [place] Report ID: [id number] Reading Location: [id number] Natividad Newberry LEAD MANUFACTURING TECHNICIAN IMG XR PROCEDURES Final Res ult * POC Influenza A/B, COVID-19 antigen (04/05/2025 6:48 PM CDT) [facility] Influenza A Ag, POC Negative Negative [facility] Influenza B Ag, POC Negative Negative [facility] COVID-19 Ag POC Presumptive Negative Presumptive Negative, Invalid [facility] Nasal 04/05/2025 6:48 PM CDT Kimmie Montaño NP POINT OF CARE TEST ORDERAB LES Final Result [facility] [address] [place] [address], [facility] * POCT rapid strep A (04/05/2025 6:47 PM CDT) [facility] Rapid Strep A, POC Negative Negative Swab 04/05/2025 6:47 PM CDT Kimmie Montaño LEAD MANUFACTURING TECHNICIAN POINT OF CARE TEST ORDERAB LES Final Result * Differential, auto (03/30/2025 10:06 AM CDT) [facility] Neutrophil abs 3.24 1.50 - 6.50 K/cumm Comment:Testing performed by : [facility], [address] [place] [address], [address] Imm gran abs 0.01 0.00 - 0.10 K/cumm [facility] ([place]) Comment:Testing performed by : [facility], [address] [place] [address], [address] Lymphocyte abs 1.57 0.80 - 3.30 K/cumm [facility] ([place]) Comment:Testing performed by : [address] [address] Monocyte abs 0.55 0.20 - 0.80 K/cumm [facility] ([place]) Comment:Testing performed by : [address] [address] Eosinophil abs 0.03 0.00 - 0.50 K/cumm [facility] ([place]) Comment:Testing performed by : [facility], [address] [place] [address]., [address] Basophil abs 0.02 0.00 - 0.10 K/cumm [facility] ([place]) Comment:Testing performed by : [facility], [address] [place] [address]., [address] Neutrophil pct 59.7 % [facility] ([place]) Comment: Interpretive Data Percent cell count reference ranges are not reported, since discordance with absolute values may lead to misinterpretation of CBC data. Current Interpretive Data was last revised on 2017. Testing performed by: [facility], [address] [place] [address]., [address] Imm gran pct 0.2 % [facility] ([place]) Comment: Interpretive Data Percent cell count reference ranges are not reported, since discordance with absolute values may lead to misinterpretation of CBC data. Current Interpretive Data was last revised on 2017. Testing performed by: [facility], [address] [place] [address]., [address] Lymphocyte pct 29.0 % [facility] ([place]) Comment: Interpretive Data Percent cell count reference ranges are not reported, since discordance with absolute values may lead to misinterpretation of CBC data. Current Interpretive Data was last revised on 2017. Testing performed by: [facility], [address] [place] [address]., [address] Monocyte pct 10.1 % [facility] ([place]) Comment: Interpretive Data Percent cell count reference ranges are not reported, since discordance with absolute values may lead to misinterpretation of CBC data. Current Interpretive Data was last revised on 2017. Testing performed by: [address] [address] Eosinophil pct 0.6 % [facility] ([place]) Comment: Interpretive Data Percent cell count reference ranges are not reported, since discordance with absolute values may lead to misinterpretation of CBC data. Current Interpretive Data was last revised on 2017. Testing performed by: [address] [address] Basophil pct 0.4 % [facility] ([place]) Comment: Interpretive Data Percent cell count reference ranges are not reported, since discordance with absolute values may lead to misinterpretation of CBC data. Current Interpretive Data was last revised on 2017. Testing performed by: [facility], [address] [place] [address]., [address] Blood 03/30/2025 10:0 6 AM CDT 03/30/2025 1:08 PM CDT Renata Madison LEAD MANUFACTURING TECHNICIAN LAB BLOOD ORDERABLES Final Re sult Performing Organization Address City/[facility]/ZIP Co de Phone Number HARSHAD LI ([place]) 1 [facility] [place] [address] * Iron profile w/ IBC (03/30/2025 10:06 AM CDT) Iron 79 35 - 145 mcg/dl Comment:Testing performed by : [facility], [address] [place] [address]., [address] TIBC 262 250 - 400 mcg/dL HARSHAD LI ([place]) Comment:Testing performed by : [facility], [address] [place] [address]., [address] Transferrin saturation 30 20 - 50 % HARSHAD LI ([place]) Comment:Testing performed by : [facility], [address] [place] [address]., [address] Blood 03/30/2025 10:0 6 AM CDT 03/30/2025 1:08 PM CDT Renata Madison NP LAB BLOOD ORDERABLES Final Re sult Performing Organization Address [facility]/ZIP Co de Phone Number HARSHAD LI ([place]) 1 [facility] [place] [address] * CBC with auto differential (03/30/2025 10:06 AM CDT) WBC 5.42 3.80 - 9.90 K/cumm Comment:Testing performed by : [address], [address] Hgb 13.8 11.9 - 15.5 g/dL [facility] ([place]) Comment:Testing performed by : [address], [address] Hct 42.0 35.6 - 45.5 % [facility] ([place]) Comment:Testing performed by : [address], [address] Plt 259 150 - 400 K/cumm [facility] ([place]) Comment:Testing performed by : [address], [address] MPV 10.8 9.1 - 12.3 fL [facility] ([place]) Comment:Testing performed by : [address], [address] RBC 4.71 3.90 - 5.20 M/cumm [facility] ([place]) Comment:Testing performed by : [address], [address] MCV 89.2 81.3 - 96.4 fL [facility] ([place]) Comment:Testing performed by : [address], [address] MCH 29.3 27.1 - 33.3 pg [facility] ([place]) Comment:Testing performed by : [address], [address] MCHC 32.9 32.3 - 35.7 g/dL [facility] ([place]) Comment:Testing performed by : [address], [address] RDW CV 13.0 11.1 - 14.9 % [facility] ([place]) Comment:Testing performed by : [address], [address] RDW SD 42.9 35.7 - 48.1 fL [facility] ([place]) Comment:Testing performed by : [address], [address] NRBC abs 0.00 0.00 - 0.01 K/cumm [facility] ([place]) Comment:Testing performed by : [address], [address] Blood 03/30/2025 10:0 6 AM CDT 03/30/2025 1:08 PM CDT Renata Madison NP LAB BLOOD ORDERABLES Final Re sult HARSHAD LI ([place]) 1 [facility] [place] [address] * (ABNORMAL) Vitamin D 25 hydroxy (03/30/2025 10:06 AM CDT) Vitamin D 25-OH 20(L) 30 - 80 ng/mL Comment:Testing performed by : [facility], [address] [place] [address]., [address] Blood 03/30/2025 10:0 6 AM CDT 03/30/2025 1:08 PM CDT Renata Madison NP LAB BLOOD ORDERABLES Final Re sult Performing Organization Address [facility] Co de Phone Number HARSHAD LI ([place]) 1 [facility] [place] [address] * Ferritin (03/30/2025 10:06 AM CDT) Pathologist [facility] Ferritin 106 13 - 150 ng/mL Comment:Testing performed by : [facility], [address] [place] [address], [place]., [address] Blood 03/30/2025 10:0 6 AM CDT 03/30/2025 1:08 PM CDT Renata Madison NP LAB BLOOD ORDERABLES Final Re sult HARSHAD LI ([place]) 1 [facility] [place] [address] from Last 3 Months Insurance [facility] CHOICE PLUS IDPA [facility] CHOICE PLUS IDPA [facility] CHOICE PLUS IDPA Care Teams Hoist Worker Relationship Specialty Start Date End Date Los Luque MD [address] [place] [address] PCP - General Family Medicine 01/07/22 [place] [address] [place] [address] Consulting Physician Orthopedic Surgery 01/22/24
--- OUTSIDE RECORDS SUMMARY | 2025-06-19 09:35 | XMS_ITS ---
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 07/12/2015 FELIPA Ashley RIVERARIG BARREL RIFLER OPERATOR-BC Active Last Documented On 5 6:11PM ; [facility] Note: Unchanged Conjunctivitis Mucopurulent 07/12/2015 Unknown FELIPA A KAHRIG BARREL RIFLER OPERATOR-BC Resolved Last Documented On 6 4:03PM ; [facility] Note: Unchanged Plan of Treatment Findings Encounter Date Ordered return to the clinic if condition worsens or new symptoms arise COVID SICK VISIT- ESTABLISHED PATIENT with KRYSTAL FUENTES DNP 09/26/2023 Last Documented On 4 7:33PM ; [facility] Ordered patient will call fo r appointment as needed COVID SICK VISIT- ESTABLISHED PATIENT with EZE VICKERS APRN 09/24/2023 Last Documented On 4 12:15PM ; [facility] Ordered return to the clinic if condition worsens or new symptoms arise COVID SICK VISIT- ESTABLISHED PATIENT with EZE VICKERS PREDICTIVE MAINTENANCE SPECIALIST 09/24/2023 Last Documented On 4 12:15PM ; [facility] The options include close observation CO VID SICK VISIT- ESTABLISHED PATIENT with CANDY MONTANO BARREL RIFLER OPERATOR-C 07/14/2023 Last Documented On 3 5:30PM ; [facility] Watch for signs/symptoms of infection, return to the clinic if seen COVID SICK VISIT- ESTABLISHED PATIENT with CANDY MONTANO BARREL RIFLER OPERATOR-C 07/14/2023 Last Documented On 3 5:30PM ; [facility] Ordered patient will call fo r appointment as needed COVID SICK VISIT- ESTABLISHED PATIENT with IPLI CALIXTO BARREL RIFLER OPERATOR-BC 07/12/2023 Last Documented On 3 1:41PM ; [facility] Ordered return to the clinic if condition worsens or new symptoms arise COVID SICK VISIT- ESTABLISHED PATIENT with PILI CALIXTO BARREL RIFLER OPERATOR-BC 07/12/2023 Last Documented On 3 1:41PM ; [facility] Ordered patient will call fo r appointment as needed COVID SICK VISIT- ESTABLISHED PATIENT with PILI CALIXTO BARREL RIFLER OPERATOR-BC 07/26/2022 Last Documented On 2 10:28AM ; [facility] Ordered return to the clinic if condition worsens or new symptoms arise COVID SICK VISIT- ESTABLISHED PATIENT with PILI CALIXTO BARREL RIFLER OPERATOR-BC 07/26/2022 Last Documented On 2 10:28AM ; [facility] Continue current medication COVID SICK V ISIT- ESTABLISHED PATIENT with CANDY MONTANO BARREL RIFLER OPERATOR-C 07/12/2022 Last Documented On 2 10:46AM ; [facility] The options include close observation CO VID SICK VISIT- ESTABLISHED PATIENT with CANDY MONTANO BARREL RIFLER OPERATOR-C 07/12/2022 Last Documented On 2 10:46AM ; [facility] Ordered follow-up visit in 1 -2 weeks with an office visit or sooner if symptoms persist or worsen COVID SICK VISIT- ESTABLISHED PATIENT with PILI CALIXTO BARREL RIFLER OPERATOR-BC 08/22/2021 Last Documented On 1 6:26PM ; [facility] Ordered patient to call if aslhey hoyos develops COVID SICK VISIT- ESTABLISHED PATIENT with PILI CALIXTO [facility]- 08/22/2021 Last Documented On 1 6:26PM ; [facility] Ordered return to the clinic if condition worsens or new symptoms arise COVID SICK VISIT- ESTABLISHED PATIENT with PILI CALIXTO [facility]- 08/22/2021 Last Documented On 1 6:26PM ; [facility] Ordered Clinical summary pro vided to patient . Plan discussed and patient/parent/caregiver states understanding 1 MONTH CHECK with RODDY DELAROSA PA-C 12/22/2019 Last Documented On 0 11:18AM ; [facility] Ordered follow-up visit as n eeded with an office visit. Wean off the Topamax for now and see how your headaches and stomach goes. May need to switch to propranolol if headaches become severe. Discussed symptoms could be due to OCPs. May need to discuss switching with your SEMICONDUCTOR LAB TECHNICIAN. Call sooner if needed 1 MONTH CHECK with RODDY DELRAOSA PA-C 12/22/2019 Last Documented On 0 11:18AM ; [facility] Ordered Clinical summary pro vided to patient . Plan discussed and patient/parent/caregiver states understanding PROBLEM VISIT with RODDY DELAROSA PA-C 11/29/2019 Last Documented On 0 11:11AM ; [facility] Ordered follow-up visit 1 mo . Labs today. Will get MRI of head. See Ophthalmology. Call sooner if needed PROBLEM VISIT with RODDY DELAROSA PA-C 11/29/2019 Last Documented On 0 11:11AM ; [facility] Ordered Clinical summary pro vided to patient SEMICONDUCTOR LAB TECHNICIAN EXAM with RUTHANN ROMANO RN [facility] 11/17/2019 Last Documented On 0 11:49AM ; [facility] Ordered weight loss diet SEMICONDUCTOR LAB TECHNICIAN EXAM with RUTHANN AGUILAR RN [facility] 11/17/2019 Last Documented On 0 11:49AM ; [facility] Ordered Clinical summary pro vided to patient . Plan discussed and patient/parent/caregiver states understanding SICK VISIT with RODDY DELAROSA PA-C 10/18/2019 Last Documented On 0 4:02PM ; [facility] Ordered follow-up visit as n eeded with an office visit. Finish z pack. Go to ER if breathing worsens. Seek medical care if symptoms worsen/new symptoms arise SICK VISIT with RODDY DELAROSA PA-C 10/18/2019 Last Documented On 0 4:02PM ; [facility] Ordered follow-up visit in 1 -2 weeks with an office visit or sooner if symptoms persist or worsen WALK-IN CLINIC SICK VISIT with PILI CALIXTO [facility] 10/16/2019 Last Documented On 0 1:07PM ; [facility] Ordered patient to call if ashley hoyos develops WALK-IN CLINIC SICK VISIT with PILI CALIXTO [facility] 10/16/2019 Last Documented On 0 1:07PM ; [facility] Ordered return to the clinic if condition worsens or new symptoms arise WALK-IN CLINIC SICK VISIT with PILI CALIXTO [facility] 10/16/2019 Last Documented On 0 1:07PM ; [facility] Ordered Clinical summary pro vided to patient . Plan discussed and patient/parent/caregiver states understanding 1 WK CK-UP with RODDY DELAROSA PA-C 09/24/2019 Last Documented On 0 2:08PM ; [facility] Ordered follow-up visit 2 we eks. Take 800mg ibuprofen twice a day for 2 wks. Alternate local ice/heat during the day. Cont ankle brace during the day and off at night. Cont physical therapy. Discussed MRI if pain continues in 2 weeks. Call sooner if needed 1 WK CK-UP with RODDY DELAROSA PA-C 09/24/2019 Last Documented On 0 2:08PM ; [facility] Clinical summary provided to patient PRO BLEM VISIT with PILI SANDOVAL [facility] 09/17/2019 Last Documented On 0 3:12PM ; [facility] Plan of care reviewed and agreed to PROB CHANDU VISIT with PILI SANDOVAL [facility] 09/17/2019 Last Documented On 0 3:12PM ; [facility] Ordered Clinical summary pro vided to patient . Plan discussed and patient/parent/caregiver states understanding PROBLEM VISIT with RODDY DELAROSA PA-C 07/30/2019 Last Documented On 9 6:39PM ; [facility] Ordered follow-up visit as n [...] 07/30/2019 Last Documented On 9 6:39PM ; [facility] Ordered Clinical summary pro vided to patient . Plan discussed and patient/parent/caregiver states understanding PROBLEM VISIT with RODDY DELAROSA PA-C 07/14/2019 Last Documented On 9 5:17PM ; [facility] Ordered follow-up visit as n eeded with an office visit. Drink more water. Urinate often. Labs today. Will get ultrasound of your kidneys and gallbladder---checking for stones. Ranitidine for the acid/indigestion. Call sooner if needed. Go to ER if pain becomes severe PROBLEM VISIT with RODDY DELAROSA PA-C 07/14/2019 Last Documented On 9 5:17PM ; [facility] Ordered Clinical summary pro vided to patient . Plan discussed and patient/parent/caregiver states understanding CHECK UP with RODDY DELAROSA PA-C 02/16/2019 Last Documented On 9 10:51AM ; [facility] Ordered follow-up visit as n eeded with an office visit. Repeat labs today and will go from there. Tylenol/ibuprofen as needed for pain. Push fluids, stay hydrated. Stool softeners/laxatives as needed for constipation. Call sooner if needed CHECK UP with RODDY DELAROSA PA-C 02/16/2019 Last Documented On 9 10:51AM ; [facility] Ordered referred to primary care physician WALK-IN CLINIC SICK VISIT with PILI MERCADO 02/10/2019 Last Documented On 9 11:16AM ; [facility] Ordered Transition in care, clinical summary provided WALK-IN CLINIC SICK VISIT with PILI CALIXTO [facility]- 02/10/2019 Last Documented On 9 11:16AM ; [facility] Ordered follow-up visit as n eeded with an office visit if symptoms persist or worsen WALK-IN CLINIC SICK VISIT with PILI CALIXTO [facility]- 11/05/2018 Last Documented On 9 9:17AM ; [facility] Ordered patient to call if ashley hoyos develops WALK-IN CLINIC SICK VISIT with PILI CALIXTO [facility]- 11/05/2018 Last Documented On 9 9:17AM ; [facility] Ordered referred to primary care physician WALK-IN CLINIC SICK VISIT with PILI CALIXTO [facility]- 11/05/2018 Last Documented On 9 9:17AM ; [facility] Ordered return to the clinic if condition worsens or new symptoms arise WALK-IN CLINIC SICK VISIT with PILI CALIXTO [facility]- 11/05/2018 Last Documented On 9 9:17AM ; [facility] Ordered Transition in care, clinical summary provided WALK-IN CLINIC SICK VISIT with PILI CALIXTO [facility]- 11/05/2018 Last Documented On 9 9:17AM ; [facility] Ordered patient will call fo r appointment as needed WALK-IN CLINIC SICK VISIT with CANDACE GUERRERO [facility]- 11/03/2018 Last Documented On 9 3:24PM ; [facility] Ordered return to the clinic if condition worsens or new symptoms arise WALK-IN CLINIC SICK VISIT with CANDACE GUERRERO [facility]- 11/03/2018 Last Documented On 9 3:24PM ; [facility] Ordered Clinical summary pro vided to patient SEMICONDUCTOR LAB TECHNICIAN EXAM with RUTHANN ROMANO RN [facility] 09/01/2018 Last Documented On 9 2:27PM ; [facility] Ordered follow-up visit in 1 -2 weeks with an office visit or sooner if symptoms persist or worsen WALK-IN CLINIC SICK VISIT with PILI CALIXTO [facility]- 07/01/2018 Last Documented On 8 12:16PM ; [facility] Ordered patient to call if ashley hoyos develops WALK-IN CLINIC SICK VISIT with PILI CALIXTO [facility]- 07/01/2018 Last Documented On 8 12:16PM ; [facility] Ordered referred to primary care physician WALK-IN CLINIC SICK VISIT with PILI CALIXTO [facility]- 07/01/2018 Last Documented On 8 12:16PM ; [facility] Ordered return to the clinic if condition worsens or new symptoms arise WALK-IN CLINIC SICK VISIT with PILI CALIXTO [facility]- 07/01/2018 Last Documented On 8 12:16PM ; [facility] Ordered Transition in care, clinical summary provided WALK-IN CLINIC SICK VISIT with PILI CALIXTO [facility]- 07/01/2018 Last Documented On 8 12:16PM ; [facility] Ordered DNA probe for Neisse conrad gonorrhoeae and Chlamydia trachomatis 1 MONTH CHECK with CAROL PANG MD 03/17/2018 Last Documented On 8 11:13AM ; [facility] Post Concussion activity exp lained. Rest including brain rest, NO screen time. Once headache free for 24 hours may slowly advance activty PROBLEM VISIT with SHANT STRATTON PA-C 02/10/2018 Last Documented On 8 2:18PM ; [facility] Ordered return to the clinic if condition worsens or new symptoms arise PROBLEM VISIT with SHANT STRATTON PA-C 02/10/2018 Last Documented On 8 2:18PM ; [facility] Go to the emergency room if condition worsens WALK-IN CLINIC SICK VISIT with PILI CALIXTO [facility]- 11/24/2017 Last Documented On 8 4:05PM ; [facility] Ordered analgesics (non-ster oidal anti-inflammatory agents) WALK-IN CLINIC SICK VISIT with PILI CALIXTO [facility]- 11/24/2017 Last Documented On 8 4:05PM ; [facility] Ordered follow-up visit as n eeded with an office visit. WALK-IN CLINIC SICK VISIT with PILI CALIXTO [facility]- 11/24/2017 Last Documented On 8 4:05PM ; [facility] Ordered home range of motion exercises W ALK-IN CLINIC SICK VISIT with PILI CALIXTO BARREL RIFLER OPERATOR-BC 11/24/2017 Last Documented On 8 4:05PM ; [facility] Ordered moist heat WALK-IN CLINIC SICK VISIT wit h PILI CALIXTO BARREL RIFLER OPERATOR-BC 11/24/2017 Last Documented On 8 4:05PM ; [facility] Ordered referred to primary care physician WALK-IN CLINIC SICK VISIT with PILI CALIXTO BARREL RIFLER OPERATOR-BC 11/24/2017 Last Documented On 8 4:05PM ; [facility] Ordered Transition in care, clinical summary provided WALK-IN CLINIC SICK VISIT with PILI CALIXTO BARREL RIFLER OPERATOR-BC 11/24/2017 Last Documented On 8 4:05PM ; [facility] Continue current medication but instructed to take mobic in the morning and see how evening pain is. Encouraged to diet and exercise and continue with physical therapy exercises CHECK UP with SHANT STRATTON PA-C 09/12/2017 Last Documented On 8 2:09PM ; [facility] Ordered acetaminophen CHECK UP with SHANT HOWELL PA-C 09/12/2017 Last Documented On 8 2:09PM ; [facility] Ordered analgesics (non-ster oidal anti-inflammatory agents) CHECK UP with SHANT AREVALO-C 09/12/2017 Last Documented On 8 2:09PM ; [facility] Ordered home range of motion exercises C HECK UP with SHANT AREVALO-Nara 09/12/2017 Last Documented On 8 2:09PM ; [facility] Ordered moist heat CHECK UP with SHANT AREVALO-Nara 09/12/2017 Last Documented On 8 2:09PM ; [facility] Ordered return to the clinic if condition worsens or new symptoms arise CHECK UP with SHANT AREVALO-Nara 09/12/2017 Last Documented On 8 2:09PM ; [facility] Go to the emergency room if condition worsens WALK-IN CLINIC SICK VISIT with PILI JAYP-BC 08/24/2017 Last Documented On 7 1:27PM ; [facility] Ordered referred to primary care physician WALK-IN CLINIC SICK VISIT with PILI CALIXTO [facility] 08/24/2017 Last Documented On 7 1:27PM ; [facility] Ordered return to the clinic if condition worsens or new symptoms arise WALK-IN CLINIC SICK VISIT with PILI CALIXTO [facility] 08/24/2017 Last Documented On 7 1:27PM ; [facility] Ordered Transition in care, clinical summary provided WALK-IN CLINIC SICK VISIT with PILI CALIXTO [facility] 08/24/2017 Last Documented On 7 1:27PM ; [facility] Ordered analgesics (non-ster oidal anti-inflammatory agents) CHECK UP with SHANT Bud KIMPRICH PA-C 07/02/2017 Last Documented On 8 3:21PM ; [facility] Ordered home range of motion exercises C HECK UP with SHANT Bud KIMPRICH PA-C 07/02/2017 Last Documented On 8 3:21PM ; [facility] Ordered moist heat CHECK UP with SHANT Bud ZIPPR ICH PA-C 07/02/2017 Last Documented On 8 3:21PM ; [facility] Ordered return to the clinic if condition worsens or new symptoms arise CHECK UP with SHANT Bud KIMPRICH PA-C 07/02/2017 Last Documented On 8 3:21PM ; [facility] Ordered work restrictions ma y return to work with no no restrictions CHECK UP with SHANT Bud KIMPRICH PA-C 07/02/2017 Last Documented On 8 3:21PM ; [facility] Ordered analgesics (non-ster oidal anti-inflammatory agents) CHECK UP with SHANT Bud KIMPRICH PA-C 06/18/2017 Last Documented On 7 1:48PM ; [facility] Ordered home range of motion exercises C HECK UP with SHANT Bud KIMPRICH PA-C 06/18/2017 Last Documented On 7 1:48PM ; [facility] Ordered moist heat CHECK UP with SHANT Bud ZIPPR ICH PA-C 06/18/2017 Last Documented On 7 1:48PM ; [facility] Ordered return to the clinic if condition worsens or new symptoms arise CHECK UP with SHANT KMIPRICH PA-C 06/18/2017 Last Documented On 7 1:48PM ; [facility] Ordered work restrictions ma y return to work with no lifting over 10 lbs x 2 more weeks CHECK UP with SHANT KIMPRICH PA-C 06/18/2017 Last Documented On 7 1:48PM ; [facility] Ordered analgesics (non-ster oidal anti-inflammatory agents) CHECK UP with SHANT KIMPRICH PA-C 06/04/2017 Last Documented On 7 9:07AM ; [facility] Ordered home range of motion exercises C HECK UP with SHANT KIMPRICH PA-C 06/04/2017 Last Documented On 7 9:07AM ; [facility] Ordered moist heat CHECK UP with SAHNT KIMPR ICH PA-C 06/04/2017 Last Documented On 7 9:07AM ; [facility] Ordered return to the clinic if condition worsens or new symptoms arise CHECK UP with SHANT KIMPRICH PA-C 06/04/2017 Last Documented On 7 9:07AM ; [facility] Ordered work restrictions ma y return to work with no lifting over 10 lbs CHECK UP with SHANT KIMPRICH PA-C 06/04/2017 Last Documented On 7 9:07AM ; [facility] Ordered analgesics (non-ster oidal anti-inflammatory agents) EMERGENCY ROOM FOLLOW UP with SHANT KIMPRICH PA-C 05/26/2017 Last Documented On 7 10:14PM ; [facility] Ordered home range of motion exercises EMERGENCY ROOM FOLLOW UP with SHANT KIMPRICH PA-C 05/26/2017 Last Documented On 7 10:14PM ; [facility] Ordered moist heat EMERGENCY ROOM FOLLOW UP with SHANTTHANH KIMPRICH PA-C 05/26/2017 Last Documented On 7 10:14PM ; [facility] Ordered return to the clinic if condition worsens or new symptoms arise EMERGENCY ROOM FOLLOW UP with SHANT D VIRAL GRIFFITH 05/26/2017 Last Documented On 7 10:14PM ; [facility] Ordered work restrictions OF F WORK X 2 MORE WEEKS EMERGENCY ROOM FOLLOW UP with SHANT Farrell VIRAL GRIFFITH 05/26/2017 Last Documented On 7 10:14PM ; [facility] Ordered return to the clinic if condition worsens or new symptoms arise EMERGENCY ROOM FOLLOW UP with SHANTTHANH STRATTON PA-C 05/20/2017 Last Documented On 7 10:44AM ; [facility] Pt to use prescription as or dered. Purpose of and use of medication discussed. WALK-IN CLINIC SICK VISIT with FELIPA DAVIS [facility] 03/02/2017 Last Documented On 7 5:47PM ; [facility] Ordered disposition - Discus sed etiology and course of atopic dermatitis. Discussed limiting bathing and using oily soaps. Also discussed need for lubrication of skin on a regular basis, with intermittent use of topical steroids or topical immune modulator creams WALK-IN CLINIC SICK VISIT with PILI CALIXTO [facility] 12/04/2016 Last Documented On 7 10:53AM ; [facility] Ordered follow-up visit 5-7 days if symptoms persist or worsen WALK-IN CLINIC SICK VISIT with PILI CALIXTO [facility] 12/04/2016 Last Documented On 7 10:53AM ; [facility] Ordered referred to primary care physician WALK-IN CLINIC SICK VISIT with PILI CALIXTO [facility] 12/04/2016 Last Documented On 7 10:53AM ; [facility] Ordered return to the clinic if condition worsens or new symptoms arise WALK-IN CLINIC SICK VISIT with PILI CALIXTO [facility] 12/04/2016 Last Documented On 7 10:53AM ; [facility] Ordered Transition in care, clinical summary provided WALK-IN CLINIC SICK VISIT with PILI CALIXTO [facility] 12/04/2016 Last Documented On 7 10:53AM ; [facility] Ordered return to the clinic if condition worsens or new symptoms arise PROBLEM VISIT with SHANT STRATTON PA-C 11/20/2016 Last Documented On 7 3:44PM ; [facility] Pt to use prescription as or dered. Purpose of and use of medication discussed. WALK-IN CLINIC SICK VISIT with FELIPA Ashley DAVIS [facility]- 10/07/2016 Last Documented On 7 1:10PM ; [facility] Ordered patient will call fo r appointment as needed WALK-IN CLINIC SICK VISIT with KRYSTAL GANN [facility]- 09/16/2016 Last Documented On 7 2:10PM ; [facility] Ordered follow-up visit as n eeded with an office visit if symptoms persist or worsen SICK VISIT with PILI CALIXTO [facility]- 07/04/2016 Last Documented On 6 4:55PM ; [facility] Ordered patient to call if p roblem develops SICK VISIT with PILI CALIXTO [facility]- 07/04/2016 Last Documented On 6 4:55PM ; [facility] Ordered referred to primary care physician SICK VISIT with PILI CALIXTO [facility]- 07/04/2016 Last Documented On 6 4:55PM ; [facility] Ordered return to the clinic if condition worsens or new symptoms arise SICK VISIT with PILI CALIXTO [facility]- 07/04/2016 Last Documented On 6 4:55PM ; [facility] Ordered Transition in care, clinical summary provided SICK VISIT with PILI CALIXTO [facility]- 07/04/2016 Last Documented On 6 4:55PM ; [facility] Ordered follow-up visit as n eeded with an office visit if symptoms persist or worsen SICK VISIT with KRYSTAL GANN [facility]- 01/13/2016 Last Documented On 6 2:26PM ; [facility] Ordered follow-up visit in 2 -3 days with an office visit SICK VISIT with KRYSTAL GANN [facility] 01/13/2016 Last Documented On 6 2:26PM ; [facility] Ordered patient to call if p roblem develops SICK VISIT with KRYSTAL GANN [facility] 01/13/2016 Last Documented On 6 2:26PM ; [facility] Ordered return to the clinic if condition worsens or new symptoms arise SICK VISIT with KRYSTALEliezer GANN BARREL RIFLER OPERATOR-C 01/13/2016 Last Documented On 6 2:26PM ; [facility] Ordered follow-up visit in 3 -5 days with an office visit. With PCP SICK VISIT with FELIPA DAVIS BARREL RIFLER OPERATOR-BC 11/10/2015 Last Documented On 6 1:59PM ; [facility] Ordered patient to call if ashley hoyos develops SICK VISIT with MONO DURBIN PA-C 10/30/2015 Last Documented On 6 12:44PM ; [facility] Ordered return to the clinic if condition worsens or new symptoms arise SICK VISIT with MONO DURBIN PA-C 10/30/2015 Last Documented On 6 12:44PM ; [facility] Ordered return to the clinic if condition worsens or new symptoms arise SICK VISIT with SHANT AREVALO-C 10/24/2015 Last Documented On 6 10:33AM ; [facility] Ordered follow-up visit in 1 month with an office visit. F/U with PCP PROBLEM VISIT with FELIPA DAVIS BARREL RIFLER OPERATOR-BC 07/12/2015 Last Documented On 5 4:11PM ; [facility] Ordered return to the clinic if condition worsens or new symptoms arise COnt with referral to SEMICONDUCTOR LAB TECHNICIAN GENERAL OFFICE VISIT with SHANT AREVALO-C 06/14/2015 Last Documented On 5 1:50PM ; [facility] Ordered return to the clinic if condition worsens or new symptoms arise COnt with referral to SEMICONDUCTOR LAB TECHNICIAN PROBLEM VISIT with SHANT AREVALO-C 05/26/2015 Last Documented On 5 1:59PM ; [facility] Ordered follow-up visit to ER [facility] EM VISIT with FELIPA DAVIS BARREL RIFLER OPERATOR-BC 05/18/2015 Last Documented On 5 7:07PM ; [facility] Increase fluids PROBLEM VISIT with SHANT AREVALO-C 05/11/2015 Last Documented On 5 2:13PM ; [facility] Ordered return to the clinic if condition worsens or new symptoms arise PROBLEM VISIT with SHANT Farrell VIRAL PA-C 05/11/2015 Last Documented On 5 2:13PM ; [facility] Increase fluids PROBLEM VISIT with SHANT KIM ARIELLA PA-C 05/08/2015 Last Documented On 5 8:41AM ; [facility] Ordered return to the clinic if condition worsens or new symptoms arise PROBLEM VISIT with SHANT Farrell VIRAL PA-C 05/08/2015 Last Documented On 5 8:41AM ; [facility] Ordered follow-up visit with PCP if symptoms not resolving within 10 days SICK VISIT with FELIPA DAVIS [facility]- 04/24/2015 Last Documented On 5 1:19PM ; [facility] return for pap smear when no t on menses CONSULTATION with SHANT Bud VIRAL PA-C 03/20/2015 Last Documented On 5 3:33PM ; [facility] Ordered return to the clinic if condition worsens or new symptoms arise CONSULTATION with SHANT Farrell VIRAL PA-C 03/20/2015 Last Documented On 5 3:33PM ; [facility] Ordered follow-up visit in 5 -7 days with an office visit if symptoms persist or soon if symptoms worsen. Go to ER if symptoms worsen while on antibiotics Throat culture sent will call patient with results SICK VISIT with PILI CALIXTO [facility]- 03/07/2015 Last Documented On 5 6:50PM ; [facility] Increase fluids SICK VISIT with SHANT Farrell MCKENZIE CANCHOLA PA-C 07/07/2013 Last Documented On 3 9:24AM ; [facility] OTC Ibuprofen as needed for pain, 600mg TID SICK VISIT with SHANT Farrell VIRAL PA-C 07/07/2013 Last Documented On 3 9:24AM ; [facility] Ordered follow-up visit as n eeded with an office visit. SICK VISIT with SHANT Farrell VIRAL PA-C 07/07/2013 Last Documented On 3 9:24AM ; [facility] Ordered return to the clinic if condition worsens or new symptoms arise SICK VISIT with SHANT STRATTON PA-C 07/07/2013 Last Documented On 3 9:24AM ; [facility] OTC Ibuprofen as needed for pain, 600mg TID NEW PATIENT VISIT with SHANT STRATTON PA-C 06/09/2013 Last Documented On 3 2:39PM ; [facility] Ordered follow-up visit as n eeded with an office visit. NEW PATIENT VISIT with SHANT STRATTON PA-C 06/09/2013 Last Documented On 3 2:39PM ; [facility] Ordered return to the clinic if condition worsens or new symptoms arise NEW PATIENT VISIT with SHANT STRATTON PA-C 06/09/2013 Last Documented On 3 2:39PM ; [facility] Referrals To Diagnosis ENT Specialist OTITIS MEDIA NOS Last Documented On 4 11:05AM ; [facility] Graphics Manager Pelvic and perin eal pain Last Documented On 6 3:08PM ; [facility] Urologist Other chronic cy stitis without hematuria Note: female Last Documented On 5 2:39PM ; [facility] Ophthalmology KATHARINA GOLD M.D. Unspecified v isual loss Last Documented On 0 2:59PM ; [facility] Instructions to patient Instructions for patient Last Documented On 4 12:08PM ; [facility] Intervention and counseling on cessation of tobacco use Last Documented On 4 8:59AM ; [facility] Watch for signs/symptoms of infection, return to the clinic if seen Last Documented On 3 4:53PM ; [facility] Instructions for patient Last Documented On 3 1:39PM ; [facility] Intervention and counseling on cessation of tobacco use Last Documented On 3 1:20PM ; [facility] Instructions for patient Last Documented On 2 10:24AM ; [facility] Go to the emergency room if condition worsens Last Documented On 1 6:20PM ; [facility] Watch for signs/symptoms of infection Last Documented On 1 6:20PM ; [facility] Watch for signs/symptoms of infection, return to the clinic if seen Last Documented On 1 6:20PM ; [facility] Instructions for patient : B reast Self Exam discussed and technique reviewed Last Documented On 0 11:23AM ; [facility] Use a condom during sexual i ntercourse Last Documented On 0 11:23AM ; [facility] Lose weight Last Documented On 0 11:23AM ; [facility] Instructed to call if excess krishna bleeding or abdominal/pelvic pain Last Documented On 0 11:23AM ; [facility] Recommend diet and exercise at least 30 min three times per week Last Documented On 0 11:23AM ; [facility] Go to the emergency room if condition worsens Last Documented On 0 12:45PM ; [facility] Watch for signs/symptoms of infection Last Documented On 0 12:45PM ; [facility] Watch for signs/symptoms of infection, return to the clinic if seen Last Documented On 0 12:45PM ; [facility] Go to the emergency room if condition worsens Last Documented On 9 9:12AM ; [facility] Watch for signs/symptoms of infection Last Documented On 9 9:12AM ; [facility] Watch for signs/symptoms of infection, return to the clinic if seen Last Documented On 9 9:12AM ; [facility] Instructions for patient : B reast Self Exam discussed and technique reviewed Last Documented On 9 2:07PM ; [facility] Use a condom during sexual i ntercourse Last Documented On 9 2:07PM ; [facility] Instructed to call if excess krishna bleeding or abdominal/pelvic pain Last Documented On 9 2:07PM ; [facility] Recommend diet and exercise at least 30 min three times per week Last Documented On 9 2:07PM ; [facility] Go to the emergency room if condition worsens Last Documented On 8 12:15PM ; [facility] Watch for signs/symptoms of infection Last Documented On 8 12:15PM ; [facility] Watch for signs/symptoms of infection, return to the clinic if seen Last Documented On 8 12:15PM ; [facility] Go to the emergency room if condition worsens Last Documented On 8 2:17PM ; [facility] Go to the emergency room if condition worsens Last Documented On 8 4:03PM ; [facility] Watch for signs/symptoms of infection, return to the clinic if seen Last Documented On 8 4:01PM ; [facility] Recommend diet and exercise at least 30 min three times per week Last Documented On 8 11:51AM ; [facility] Go to the emergency room if condition worsens Last Documented On 7 1:24PM ; [facility] Watch for signs/symptoms of infection, return to the clinic if seen Last Documented On 7 1:24PM ; [facility] Instructions for patient : B reast Self Exam discussed Last Documented On 7 1:31PM ; [facility] Go to the emergency room if condition worsens Last Documented On 7 1:39PM ; [facility] Go to the emergency room if condition worsens Last Documented On 7 8:59AM ; [facility] Go to the emergency room if condition worsens Last Documented On 7 2:28PM ; [facility] Go to the emergency room if condition worsens Last Documented On 7 9:45AM ; [facility] Watch for signs/symptoms of infection, return to the clinic if seen Last Documented On 7 10:52AM ; [facility] Go to the emergency room if condition worsens Last Documented On 6 4:53PM ; [facility] Watch for signs/symptoms of infection Last Documented On 6 4:53PM ; [facility] Watch for signs/symptoms of infection, return to the clinic if seen Last Documented On 6 4:53PM ; [facility] Instructions for patient : B reast Self Exam discussed Last Documented On 6 1:31PM ; [facility] Return to the clinic if cond ition worsens or new symptoms arise Last Documented On 6 2:22PM ; [facility] Go to the emergency room if condition worsens Last Documented On 6 2:22PM ; [facility] Watch for signs/symptoms of infection Last Documented On 6 2:22PM ; [facility] Watch for signs/symptoms of infection, return to the clinic if seen Last Documented On 6 2:22PM ; [facility] Go to the emergency room if condition worsens Last Documented On 5 1:40PM ; [facility] Go to the emergency room if condition worsens Last Documented On 5 1:55PM ; [facility] Go to the emergency room if condition worsens Last Documented On 5 1:31PM ; [facility] Go to the emergency room if condition worsens Last Documented On 5 3:05PM ; [facility] Recommend diet and exercise at least 30 min three times per week Last Documented On 5 3:05PM ; [facility] Watch for signs/symptoms of infection, return to the clinic if seen Last Documented On 5 6:45PM ; [facility] Education and Decision Aids were provided during visit for: Patient education about anti biotics: need to finish even if feeling better Last Documented On 1 6:20PM ; [facility] Patient education RE: navin bueno signals associated with hormonal contraceptive use including abdominal, chest, or leg pain, headaches or visual disturbances Last Documented On 0 11:23AM ; [facility] Patient Education: Daily miguel cium and vitamin D Last Documented On 0 11:23AM ; [facility] control consent review ed and signed Last Documented On 0 11:23AM ; [facility] Patient education about anti biotics: need to finish even if feeling better Last Documented On 0 12:45PM ; [facility] Plan of care discussed with patient. Understanding was verbalized by all and all questions were addressed and answered. Last Documented On 0 3:12PM ; [facility] Inquiry and counseling about contraceptive practices Last Documented On 9 3:42PM ; [facility] Patient education RE: tungeliezer myles signals associated with hormonal contraceptive use including abdominal, chest, or leg pain, headaches or visual disturbances Last Documented On 9 2:07PM ; [facility] Patient Education: Daily miguel cium and vitamin D Last Documented On 9 2:07PM ; [facility] Patient education about anti biotics: need to finish even if feeling better Last Documented On 8 12:15PM ; [facility] Patient counseling : STD pre vention. I discussed with the patient that condoms can reduce the chance of getting an STD but not eliminate it. Increased exposure from multiple sex partners also discussed Last Documented On 8 10:07AM ; [facility] HIV counseling given Last Documented On 8 10:07AM ; [facility] Patient counseling : Use of oral contraceptives discussed in detail including rare occurrence of heart attack, stroke, and leg clots. Patient understands that smoking increases the risk of serious side effects with any steroid-based contraceptive method Last Documented On 8 9:55AM ; [facility] Patient counseling : Use of oral contraceptives discussed in detail including rare occurrence of heart attack, stroke, and leg clots. Patient understands that smoking increases the risk of serious side effects with any steroid-based contraceptive method Last Documented On 8 3:39PM ; [facility] Dietary counseling pertainin g to obesity Last Documented On 8 2:08PM ; [facility] Patient counseling : Use of oral contraceptives discussed in detail including rare occurrence of heart attack, stroke, and leg clots. Patient understands that smoking increases the risk of serious side effects with any steroid-based contraceptive method Last Documented On 7 1:53PM ; [facility] STD screening offered and de clined Last Documented On 7 1:31PM ; [facility] STD screening desired and or dered (cultures only) Last Documented On 6 1:54PM ; [facility] Dietary counseling pertainin g to obesity Last Documented On 5 3:05PM ; [facility] Patient education about anti biotics: need to finish even if feeling better Last Documented On 3 9:14AM ; [facility] Patient education about anti biotics: need to finish even if feeling better Last Documented On 3 2:37PM ; [facility] Assessments Includes: Assessments for all patient encounters Findings Encounter Date Acute pharyngitis COVID SICK VISIT- ES TABLISHED PATIENT with KRYSTAL FUENTES DNP 09/26/2023 Last Documented On 4 7:33PM ; [facility] Acute upper respiratory infection COVID SICK VISIT- ESTABLISHED PATIENT with EZE VICKERS MARK 09/24/2023 Last Documented On 4 12:15PM ; [facility] Acute suppurative otitis med ia of both ears COVID SICK VISIT- ESTABLISHED PATIENT with CANDY MONTANO BARREL RIFLER OPERATOR-C 07/14/2023 Last Documented On 3 5:30PM ; [facility] COVID-19 infection COVID SICK VISIT- ES TABLISHED PATIENT with PILI CALIXTO BARREL RIFLER OPERATOR-BC 07/12/2023 Last Documented On 3 1:41PM ; [facility] Acute pharyngitis COVID SICK VISIT- ES TABLISHED PATIENT with PILI SANDOVAL BARREL RIFLER OPERATOR-C 12/22/2022 Last Documented On 3 9:59AM ; [facility] Acute upper respiratory infection COVID SICK VISIT- ESTABLISHED PATIENT with PILI Didi CALIXTO BARREL RIFLER OPERATOR-BC 07/26/2022 Last Documented On 2 10:28AM ; [facility] Contact with and (Suspected) exposure to COVID-19 COVID SICK VISIT- ESTABLISHED PATIENT with CANDY MONTANO BARREL RIFLER OPERATOR-C 07/12/2022 Last Documented On 2 10:46AM ; [facility] Upper respiratory infection COVID SICK V ISIT- ESTABLISHED PATIENT with CANDY MONTANO BARREL RIFLER OPERATOR-C 07/12/2022 Last Documented On 2 10:46AM ; [facility] Acute pharyngitis COVID SICK VISIT- ES TABLISHED PATIENT with KRYSTAL Marquez GANN BARREL RIFLER OPERATOR-C 05/12/2022 Last Documented On 2 11:31AM ; [facility] Acute serous otitis media COVID SICK VIS IT- ESTABLISHED PATIENT with KRYSTAL Marquez GANN BARREL RIFLER OPERATOR-C 05/12/2022 Last Documented On 2 11:31AM ; [facility] Assessment of fever COVID SICK VISIT- ES TABLISHED PATIENT with KRYSTAL GANN BARREL RIFLER OPERATOR-C 05/12/2022 Last Documented On 2 11:31AM ; [facility] Contact with and (Suspected) exposure to COVID-19 COVID SICK VISIT- ESTABLISHED PATIENT with KRYSTAL Marquez GANN BARREL RIFLER OPERATOR-C 05/12/2022 Last Documented On 2 11:31AM ; [facility] Viral infection [B34.9 - Vir al infection, unspecified] COVID SICK VISIT- ESTABLISHED PATIENT with KRYSTAL Marquez GANN BARREL RIFLER OPERATOR-C 05/12/2022 Last Documented On 2 11:31AM ; [facility] Contusion of right foot with intact skin surface WALK IN PATIENT - ESTABLISHED PT with KRYSTAL Marquez GANN BARREL RIFLER OPERATOR-C 01/15/2022 Last Documented On 2 1:15PM ; [facility] Acute sinusitis COVID SICK VISIT- ES TABLISHED PATIENT with PILI CALIXTO BARREL RIFLER OPERATOR-BC 08/22/2021 Last Documented On 1 6:26PM ; [facility] Common migraine (without aur a) without intractable migraine without status migrainosus 1 MONTH CHECK with RODDY DELAROSA PA-C 12/22/2019 Last Documented On 0 11:18AM ; [facility] Nausea 1 MONTH CHECK with RODDY RASMUSSEN INS PA-C 12/22/2019 Last Documented On 0 11:18AM ; [facility] Degree of visual impairment PROBLEM VISIT with Susannah DELAROSA PA-C 11/29/2019 Last Documented On 0 11:11AM ; [facility] Fatigue PROBLEM VISIT with RODDY RASMUSSEN INS PA-C 11/29/2019 Last Documented On 0 11:11AM ; [facility] Migraine headache PROBLEM VISIT with RODDY BRASWELL PA-C 11/29/2019 Last Documented On 0 11:11AM ; [facility] NORMAL FEMALE EXAM SEMICONDUCTOR LAB TECHNICIAN EXAM with RUTHANN Marquez MEGHA 11/17/2019 Last Documented On 0 11:49AM ; [facility] Screen malignant neoplasm cervix SEMICONDUCTOR LAB TECHNICIAN EXAM with Nara ROMANO RN [facility] 11/17/2019 Last Documented On 0 11:49AM ; [facility] Assessment of fever SICK VISIT with RODDY E MIKE KINS PA-C 10/18/2019 Last Documented On 0 4:02PM ; [facility] Influenza B SICK VISIT with RDODY E DELAROSA PA-C 10/18/2019 Last Documented On 0 4:02PM ; [facility] Acute sinusitis WALK[facility]IN CLINIC SICK VISIT with Susannah CALIXTO [facility]- 10/16/2019 Last Documented On 0 1:07PM ; [facility] Sprain of the left ankle 1 WK CK-UP with RODDY E DELAROSA PA-C 09/24/2019 Last Documented On 0 2:08PM ; [facility] Cyst on the left ovary CHART UPDATE with RUTHANN ROMANO RN [facility] 08/05/2019 Last Documented On 9 12:45PM ; [facility] Contraceptive management PROBLEM VISIT with WILLIE ROMANO RN [facility] 08/03/2019 Last Documented On 9 4:20PM ; [facility] Cyst on the left ovary PROBLEM VISIT with RUTHANN ROMANO RN [facility] 08/03/2019 Last Documented On 9 4:20PM ; [facility] Female pelvic pain PROBLEM VISIT with RUTHANN BEARD RN [facility] 08/03/2019 Last Documented On 9 4:20PM ; [facility] Abdominal pain PROBLEM VISIT with RODDY E JENK INS PA-C 07/30/2019 Last Documented On 9 6:39PM ; [facility] Backache PROBLEM VISIT with RODDY E JENK INS PA-C 07/30/2019 Last Documented On 9 6:39PM ; [facility] Cyst on the left ovary PROBLEM VISIT with RODDY E DELAROSA PA-C 07/30/2019 Last Documented On 9 6:39PM ; [facility] GERD PROBLEM VISIT with RODDY E JENK INS PA-C 07/30/2019 Last Documented On 9 6:39PM ; [facility] SCREENING FOR STD PROBLEM VISIT with RODDY BRASWELL PA-C 07/30/2019 Last Documented On 9 6:39PM ; [facility] Abdominal pain PROBLEM VISIT with RODDY RASMUSSEN INS PA-C 07/14/2019 Last Documented On 9 5:17PM ; [facility] Infectious mononucleosis LAB with LUIZ ASH MD 02/24/2019 Last Documented On 9 12:03PM ; [facility] Constipation CHECK UP with RODDY DELAROSA P A-C 02/16/2019 Last Documented On 9 10:51AM ; [facility] Infectious mononucleosis CHECK UP with RODDY DELAROSA PA-C 02/16/2019 Last Documented On 9 10:51AM ; [facility] Viral infection [B34.9 - Vir al infection, unspecified] [facility]IN CL[facility]IC SICK VISIT with PILI MAYES-BC 02/10/2019 Last Documented On 9 11:16AM ; [facility] Migraine headache [G43.019 - Migraine without aura, intractable, without status migrainosus] [facility]IC SICK VISIT with KRYSTAL MAYES-C 02/08/2019 Last Documented On 9 11:26AM ; [facility] Viral infection [B34.9 - Vir al infection, unspecified] [facility] SICK VISIT with KRYSTAL GANN BARREL RIFLER OPERATOR-C 02/08/2019 Last Documented On 9 11:26AM ; [facility] Checking intrauterine device (IUD) PROBLEM VISIT with KATHY ZHU MD 01/06/2019 Last Documented On 9 12:18PM ; [facility] Dyspareunia PROBLEM VISIT with KATHY Lomeli MD 01/06/2019 Last Documented On 9 12:18PM ; [facility] Urinary tract infection PROBLEM VISIT with KATHY ZHU MD 01/06/2019 Last Documented On 9 12:18PM ; [facility] Acute pharyngitis WALK[facility]IN [facility] SICK VISIT with PILI CALIXTO [facility]- 11/05/2018 Last Documented On 9 9:17AM ; [facility] Routine adult history and ph ysical (18 - 64 yrs) WALK[facility]IN [facility] SICK VISIT with CANDACE GUERRERO [facility]- 11/03/2018 Last Documented On 9 3:24PM ; [facility] NORMAL FEMALE EXAM SEMICONDUCTOR LAB TECHNICIAN EXAM with RUTHANN Marquez NP 09/01/2018 Last Documented On 9 2:27PM ; [facility] Vaginitis SEMICONDUCTOR LAB TECHNICIAN EXAM with RUTHANN ROMANO RN W P 09/01/2018 Last Documented On 9 2:27PM ; [facility] Acute sinusitis [facility]ALK[facility] SICK VISIT with Susannah CALIXTO [facility]- 07/01/2018 Last Documented On 8 12:16PM ; [facility] Contraceptive management 1 MONTH CHECK with CAROL PANG MD 03/17/2018 Last Documented On 8 11:13AM ; [facility] Contraceptive management: In sertion of IUD IUD INSERTION with CAROL PANG MD 02/24/2018 Last Documented On 8 2:04PM ; [facility] Menometrorrhagia CONSULTATION with CAROL PANG MD 02/20/2018 Last Documented On 8 10:12AM ; [facility] Concussion with no loss of consciousness PROBLEM VISIT with SHANT STRATTON PA-C 02/10/2018 Last Documented On 8 2:18PM ; [facility] Neck strain PROBLEM VISIT with SHANT KRISHNAN PA-C 02/10/2018 Last Documented On 8 2:18PM ; [facility] Contusion with intact skin s urface of the left anterior leg [facility] SICK VISIT with PILI CALIXTO [facility]- 11/24/2017 Last Documented On 8 4:05PM ; [facility] Lumbosacral radiculopathy , improving CH CHRIS UP with SHANT STRATTON PA-C 09/12/2017 Last Documented On 8 2:09PM ; [facility] Morbid obesity CHECK UP with SHANT KIMPRICH PA-C 09/12/2017 Last Documented On 8 2:09PM ; [facility] Gastroenteritis WALK[facility]IN CLINIC SICK VISIT with Susannah CALIXTO BARREL RIFLER OPERATOR-BC 08/24/2017 Last Documented On 7 1:27PM ; [facility] Lumbosacral radiculopathy , improving CH CHRIS UP with SHANT KIMPRICH PA-C 07/02/2017 Last Documented On 8 3:21PM ; [facility] Routine pelvic exam ANNUAL WELL WOMEN EXAM with CAROL PANG MD 06/18/2017 Last Documented On 7 1:53PM ; [facility] Lumbosacral radiculopathy CHECK UP with SHANT KIMPRICH PA-C 06/18/2017 Last Documented On 7 1:48PM ; [facility] Lumbosacral radiculopathy CHECK UP with SHANT KIMPRICH PA-C 06/04/2017 Last Documented On 7 9:07AM ; [facility] Lumbosacral radiculopathy EMERGENCY ROOM FOLLOW UP with SHANT KIMPRICH PA-C 05/26/2017 Last Documented On 7 10:14PM ; [facility] Pain in lower leg EMERGENCY ROOM FOLLOW UP with SHANT KIMPRICH PA-C 05/26/2017 Last Documented On 7 10:14PM ; [facility] Arthralgia of the right knee/patella/tibia/fibula EMERGENCY ROOM FOLLOW UP with SHANT KIMPRICH PA-C 05/20/2017 Last Documented On 7 10:44AM ; [facility] Pain in lower leg EMERGENCY ROOM FOLLOW UP with SHANT Bud ZIPPRICH PA-C 05/20/2017 Last Documented On 7 10:44AM ; [facility] Dermatitis due to contact wi th poison omid [facility] SICK VISIT with FELIPA DAVIS BARREL RIFLER OPERATOR-BC 03/02/2017 Last Documented On 7 5:47PM ; [facility] Lateral epicondylitis of right elbow [facility] SICK VISIT with FELIPA DAVIS [facility] 01/31/2017 Last Documented On 7 6:24PM ; [facility] Urticaria [facility]ALK[facility]IN CLINIC SICK VISIT with Susannah CALIXTO [facility] 12/04/2016 Last Documented On 7 10:53AM ; [facility] Common migraine (without aur a) without intractable migraine without status migrainosus [facility] SICK VISIT with KRYSTAL GANN BARREL RIFLER OPERATOR-C 11/22/2016 Last Documented On 7 1:22PM ; [facility] Nausea WALK[facility]IN CLINIC SICK VISIT with Susannah COCO Marquez GANN BARREL RIFLER OPERATOR-C 11/22/2016 Last Documented On 7 1:22PM ; [facility] [facility] Acute cystitis PROBLEM VISIT with SHANT Farrell JUDY KRISHNAN PA-C 11/20/2016 Last Documented On 7 3:44PM ; [facility] Fatigue PROBLEM VISIT with SHANT Farrell JUDY KRISHNAN PA-C 11/20/2016 Last Documented On 7 3:44PM ; [facility] Impaired fasting glucose PROBLEM VISIT with WILIAM Farrell VIRAL PA-C 11/20/2016 Last Documented On 7 3:44PM ; [facility] Pustular folliculitis WALK-IN CLINIC SIC K VISIT with FELIPA DAVIS [facility] 10/07/2016 Last Documented On 7 1:10PM ; [facility] Visit for: student physical WALK-IN CLIN IC SICK VISIT with KRYSTAL GANN BARREL RIFLER OPERATOR-C 09/16/2016 Last Documented On 7 2:10PM ; [facility] Group A streptococcus: B hem olytic pharyngitis SICK VISIT with PILI CALIXTO [facility] 07/04/2016 Last Documented On 6 4:55PM ; [facility] Routine pelvic exam SEMICONDUCTOR LAB TECHNICIAN EXAM with CAROL PANG MD 06/12/2016 Last Documented On 6 1:55PM ; [facility] Urticaria allergic due to envenomation P ROBLEM VISIT with FELIPA DAVIS [facility] 04/03/2016 Last Documented On 6 5:32PM ; [facility] Infectious gastroenteritis SAME DAY SICK VISIT with FELIPA Ramirez SUSAN BARREL RIFLER OPERATOR-BC 03/12/2016 Last Documented On 6 4:03PM ; [facility] Nausea SAME DAY SICK VISIT with ABDIRAHMAN EVY Ashley KAHRIG [facility] 03/12/2016 Last Documented On 6 4:03PM ; [facility] Contraceptive management CONSULTATION with CAROL PANG MD 02/23/2016 Last Documented On 6 10:59AM ; [facility] Female pelvic pain CONSULTATION with CAROL GRIJALVA MD 02/23/2016 Last Documented On 6 10:59AM ; [facility] Menometrorrhagia CONSULTATION with CAROL PANG MD 02/23/2016 Last Documented On 6 10:59AM ; [facility] Pharyngitis, Strep SICK VISIT with KRYSTAL TERESA BARREL RIFLER OPERATOR-C 01/13/2016 Last Documented On 6 2:26PM ; [facility] Otitis externa of the right ear SICK VISIT with PILI CALIXTO [facility] 12/21/2015 Last Documented On 6 3:21PM ; [facility] Viral gastroenteritis SICK VISIT with PILI CALIXTO [facility] 12/21/2015 Last Documented On 6 3:21PM ; [facility] Internal hemorrhoids SICK VISIT with FELIPA A KAHRIG [facility] 11/10/2015 Last Documented On 6 1:59PM ; [facility] Assessment of cough SICK VISIT with MONO BRITO PA-C 10/30/2015 Last Documented On 6 12:44PM ; [facility] Upper respiratory infection SICK VISIT with AIDAN DURBIN PA-C 10/30/2015 Last Documented On 6 12:44PM ; [facility] Bilateral serous nonsuppurat krishna otitis media SICK VISIT with SHANT STRATTON PA-C 10/24/2015 Last Documented On 6 10:33AM ; [facility] Otitis externa SICK VISIT with SHANT RINCON CH PA-C 10/24/2015 Last Documented On 6 10:33AM ; [facility] Common migraine (without aur a) without intractable migraine PROBLEM VISIT with FELIPA A KAHRIG BARREL RIFLER OPERATOR-BC 07/12/2015 Last Documented On 5 4:11PM ; [facility] Common migraine (without aur a) without intractable migraine without status migrainosus PROBLEM VISIT with FELIPA A KAHRIG BARREL RIFLER OPERATOR-BC 07/12/2015 Last Documented On 5 4:11PM ; [facility] Discharge diagnosis of PRIMA RY CARE PROVIDER : JENN ZIPPRICH PROBLEM VISIT with FELIPA A KAHRIG BARREL RIFLER OPERATOR-BC 07/12/2015 Last Documented On 5 4:11PM ; [facility] Mucopurulent conjunctivitis PROBLEM VISIT with C ATHARINE A KAHRIG BARREL RIFLER OPERATOR-BC 07/12/2015 Last Documented On 5 4:11PM ; [facility] Female pelvic pain GENERAL OFFICE VISIT with RAFAELA THANH D ZIPPRICH PA-C 06/14/2015 Last Documented On 5 1:50PM ; [facility] Recurrent cystitis GENERAL OFFICE VISIT with RAFAELA THANH D ZIPPRICH PA-C 06/14/2015 Last Documented On 5 1:50PM ; [facility] Female pelvic pain NEW SEMICONDUCTOR LAB TECHNICIAN EXAM with CAROL GRIJALVA MD 06/05/2015 Last Documented On 5 9:52AM ; [facility] Female pelvic pain PROBLEM VISIT with SHANT D ZIPPRICH PA-C 05/26/2015 Last Documented On 5 1:59PM ; [facility] Female pelvic pain [Patient Encounter] with WILIAM SSA D ZIPPRICH PA-C 05/19/2015 Last Documented On 5 4:14PM ; [facility] Abdominal pain--RLQ PROBLEM VISIT with FELIPA A KAHRIG BARREL RIFLER OPERATOR-BC 05/18/2015 Last Documented On 5 7:07PM ; [facility] Discharge diagnosis of PRIMA RY CARE PROVIDER : JENN ZIPPRICH PROBLEM VISIT with FELIPA A KAHRIG BARREL RIFLER OPERATOR-BC 05/18/2015 Last Documented On 5 7:07PM ; [facility] Flank pain PROBLEM VISIT with FELIPA A Susannah GUEVARA BARREL RIFLER OPERATOR-BC 05/18/2015 Last Documented On 5 7:07PM ; [facility] Vaginitis PROBLEM VISIT with SHANT Farrell JUDY KRISHNAN PA-C 05/11/2015 Last Documented On 5 2:13PM ; [facility] Allergic rhinitis PROBLEM VISIT with SHANT Blount PIETRO PA-C 05/08/2015 Last Documented On 5 8:41AM ; [facility] Dyspnea/SOB PROBLEM VISIT with SHANT Farrell JUDY KRISHNAN PA-C 05/08/2015 Last Documented On 5 8:41AM ; [facility] Urinary tract infection PROBLEM VISIT with GIULIANA Farrell ZIPPRJUAN PA-C 05/08/2015 Last Documented On 5 8:41AM ; [facility] Discharge diagnosis of PRIMA RY CARE PROVIDER : DR STRATTON SICK VISIT with FELIPA DAVIS [facility] 04/24/2015 Last Documented On 5 1:19PM ; [facility] Upper respiratory infection SICK VISIT with JOSE A DAVIS BARREL RIFLER OPERATOR-BC 04/24/2015 Last Documented On 5 1:19PM ; [facility] Dysmenorrhea CONSULTATION with SHANT Farrell SHAGUFTA PICHARDO PA-C 03/20/2015 Last Documented On 5 3:33PM ; [facility] Discharge diagnosis of PRIMA RY CARE PROVIDER : DR. SANCHEZ/ VIRAL SICK VISIT with PILI CALIXTO [facility] 03/07/2015 Last Documented On 5 6:50PM ; [facility] Upper respiratory infection SICK VISIT with TAYE CALIXTO BARREL RIFLER OPERATOR-BC 03/07/2015 Last Documented On 5 6:50PM ; [facility] Urinary tract infection SICK VISIT with PILI CALIXTO BARREL RIFLER OPERATOR-BC 03/07/2015 Last Documented On 5 6:50PM ; [facility] Lymphadenopathy SICK VISIT with SHANT Farrell MCKENZIE CANCHOLA PA-C 07/07/2013 Last Documented On 3 9:24AM ; [facility] Otitis media of the right ea r , resistant SICK VISIT with SHANT Farrell VIRAL PA-C 07/07/2013 Last Documented On 3 9:24AM ; [facility] Urinary tract infection SICK VISIT with SHANT Farrell VIRAL GRIFFITH 07/07/2013 Last Documented On 3 9:24AM ; [facility] Otitis media of the right ear NEW PATIEN T VISIT with SHANT Farrell VIRAL GRIFFITH 06/09/2013 Last Documented On 3 2:39PM ; [facility] Instructions Includes: Instructions for all patient encounters Instructions to patient Instructions for patient Last Documented On 4 12:08PM ; [facility] Intervention and counseling on cessation of tobacco use Last Documented On 4 8:59AM ; [facility] Watch for signs/symptoms of infection, return to the clinic if seen Last Documented On 3 4:53PM ; [facility] Instructions for patient Last Documented On 3 1:39PM ; [facility] Intervention and counseling on cessation of tobacco use Last Documented On 3 1:20PM ; [facility] Instructions for patient Last Documented On 2 10:24AM ; [facility] Go to the emergency room if condition worsens Last Documented On 1 6:20PM ; [facility] Watch for signs/symptoms of infection Last Documented On 1 6:20PM ; [facility] Watch for signs/symptoms of infection, return to the clinic if seen Last Documented On 1 6:20PM ; [facility] Instructions for patient : B reast Self Exam discussed and technique reviewed Last Documented On 0 11:23AM ; [facility] Use a condom during sexual i ntercourse Last Documented On 0 11:23AM ; [facility] Lose weight Last Documented On 0 11:23AM ; [facility] Instructed to call if excess krishna bleeding or abdominal/pelvic pain Last Documented On 0 11:23AM ; [facility] Recommend diet and exercise at least 30 min three times per week Last Documented On 0 11:23AM ; [facility] Go to the emergency room if condition worsens Last Documented On 0 12:45PM ; [facility] Watch for signs/symptoms of infection Last Documented On 0 12:45PM ; [facility] Watch for signs/symptoms of infection, return to the clinic if seen Last Documented On 0 12:45PM ; [facility] Go to the emergency room if condition worsens Last Documented On 9 9:12AM ; [facility] Watch for signs/symptoms of infection Last Documented On 9 9:12AM ; [facility] Watch for signs/symptoms of infection, return to the clinic if seen Last Documented On 9 9:12AM ; [facility] Instructions for patient : B reast Self Exam discussed and technique reviewed Last Documented On 9 2:07PM ; [facility] Use a condom during sexual i ntercourse Last Documented On 9 2:07PM ; [facility] Instructed to call if excess krishna bleeding or abdominal/pelvic pain Last Documented On 9 2:07PM ; [facility] Recommend diet and exercise at least 30 min three times per week Last Documented On 9 2:07PM ; [facility] Go to the emergency room if condition worsens Last Documented On 8 12:15PM ; [facility] Watch for signs/symptoms of infection Last Documented On 8 12:15PM ; [facility] Watch for signs/symptoms of infection, return to the clinic if seen Last Documented On 8 12:15PM ; [facility] Go to the emergency room if condition worsens Last Documented On 8 2:17PM ; [facility] Go to the emergency room if condition worsens Last Documented On 8 4:03PM ; [facility] Watch for signs/symptoms of infection, return to the clinic if seen Last Documented On 8 4:01PM ; [facility] Recommend diet and exercise at least 30 min three times per week Last Documented On 8 11:51AM ; [facility] Go to the emergency room if condition worsens Last Documented On 7 1:24PM ; [facility] Watch for signs/symptoms of infection, return to the clinic if seen Last Documented On 7 1:24PM ; [facility] Instructions for patient : B reast Self Exam discussed Last Documented On 7 1:31PM ; [facility] Go to the emergency room if condition worsens Last Documented On 7 1:39PM ; [facility] Go to the emergency room if condition worsens Last Documented On 7 8:59AM ; [facility] Go to the emergency room if condition worsens Last Documented On 7 2:28PM ; [facility] Go to the emergency room if condition worsens Last Documented On 7 9:45AM ; [facility] Watch for signs/symptoms of infection, return to the clinic if seen Last Documented On 7 10:52AM ; [facility] Go to the emergency room if condition worsens Last Documented On 6 4:53PM ; [facility] Watch for signs/symptoms of infection Last Documented On 6 4:53PM ; [facility] Watch for signs/symptoms of infection, return to the clinic if seen Last Documented On 6 4:53PM ; [facility] Instructions for patient : B reast Self Exam discussed Last Documented On 6 1:31PM ; [facility] Return to the clinic if cond ition worsens or new symptoms arise Last Documented On 6 2:22PM ; [facility] Go to the emergency room if condition worsens Last Documented On 6 2:22PM ; [facility] Watch for signs/symptoms of infection Last Documented On 6 2:22PM ; [facility] Watch for signs/symptoms of infection, return to the clinic if seen Last Documented On 6 2:22PM ; [facility] Go to the emergency room if condition worsens Last Documented On 5 1:40PM ; [facility] Go to the emergency room if condition worsens Last Documented On 5 1:55PM ; [facility] Go to the emergency room if condition worsens Last Documented On 5 1:31PM ; [facility] Go to the emergency room if condition worsens Last Documented On 5 3:05PM ; [facility] Recommend diet and exercise at least 30 min three times per week Last Documented On 5 3:05PM ; [facility] Watch for signs/symptoms of infection, return to the clinic if seen Last Documented On 5 6:45PM ; [facility] Education and Decision Aids were provided during visit for: Patient education about anti biotics: need to finish even if feeling better Last Documented On 1 6:20PM ; [facility] Patient education RE: navin g signals associated with hormonal contraceptive use including abdominal, chest, or leg pain, headaches or visual disturbances Last Documented On 0 11:23AM ; [facility] Patient Education: Daily miguel cium and vitamin D Last Documented On 0 11:23AM ; [facility] control consent review ed and signed Last Documented On 0 11:23AM ; [facility] Patient education about anti biotics: need to finish even if feeling better Last Documented On 0 12:45PM ; [facility] Plan of care discussed with patient. Understanding was verbalized by all and all questions were addressed and answered. Last Documented On 0 3:12PM ; [facility] Inquiry and counseling about contraceptive practices Last Documented On 9 3:42PM ; [facility] Patient education RE: tungeliezer g signals associated with hormonal contraceptive use including abdominal, chest, or leg pain, headaches or visual disturbances Last Documented On 9 2:07PM ; [facility] Patient Education: Daily miguel cium and vitamin D Last Documented On 9 2:07PM ; [facility] Patient education about anti biotics: need to finish even if feeling better Last Documented On 8 12:15PM ; [facility] Patient counseling : STD pre vention. I discussed with the patient that condoms can reduce the chance of getting an STD but not eliminate it. Increased exposure from multiple sex partners also discussed Last Documented On 8 10:07AM ; [facility] HIV counseling given Last Documented On 8 10:07AM ; [facility] Patient counseling : Use of oral contraceptives discussed in detail including rare occurrence of heart attack, stroke, and leg clots. Patient understands that smoking increases the risk of serious side effects with any steroid-based contraceptive method Last Documented On 8 9:55AM ; [facility] Patient counseling : Use of oral contraceptives discussed in detail including rare occurrence of heart attack, stroke, and leg clots. Patient understands that smoking increases the risk of serious side effects with any steroid-based contraceptive method Last Documented On 8 3:39PM ; [facility] Dietary counseling pertainin g to obesity Last Documented On 8 2:08PM ; [facility] Patient counseling : Use of oral contraceptives discussed in detail including rare occurrence of heart attack, stroke, and leg clots. Patient understands that smoking increases the risk of serious side effects with any steroid-based contraceptive method Last Documented On 7 1:53PM ; [facility] STD screening offered and de clined Last Documented On 7 1:31PM ; [facility] STD screening desired and or dered (cultures only) Last Documented On 6 1:54PM ; [facility] Dietary counseling pertainin g to obesity Last Documented On 5 3:05PM ; [facility] Patient education about anti biotics: need to finish even if feeling better Last Documented On 3 9:14AM ; [facility] Patient education about anti biotics: need to finish even if feeling better Last Documented On 3 2:37PM ; [facility] Medical Equipment - Implanted Devices Includes: Current and historical Devices No Medical Equipment Recorded Medications Includes: Current and historical Medications Current Medications (continue as prescribed) Lisinopril 10 MG Oral Tablet 08/04/2023 Provider: BRAVO DILL NP Diagnosis: Last Documented On 09/26/2023 7:15PM By Mireya Carrillo MA ; [facility] Nexplanon 68 MG Subcutaneous Implant 07/14/2023 Prov ider: Diagnosis: Last Documented On 07/14/2023 4:40PM By Mireya Carrillo MA ; [facility] Vitamin D (Ergocalciferol) 85263 UNIT Oral Capsule Provider: Diagnosis: once weekly Last Documented On 05/24/202 2 12:03PM By BYRON SCOTT ; [facility] GoodSense Vitamins 28-0.8 MG Oral Tablet 12/24 Provider: Diagnosis: PRN Last Documented On 2 11:22AM By BYRON SCOTT ; [facility] EQ Ibuprofen 200 MG Oral Tablet 09/17/2019 Provider: Diagnosis: 3 tablets Q8H Last Documented On 0 3:05PM By Pili JAYP-C ; [facility] Tylenol 325MG Oral Tablet 02/08/2019 Provider: Diagnosis: PRN-fever & pain Last Documented On 9 10:29AM By BYRON SCOTT ; [facility] Singulair 10MG Oral Tablet 10/14/2017 Provider: SHANT Samaniego Diagnosis: Allergic rhiniti s due to pollen One tablet daily Last Documented On 8 2:46PM By SHANT STRATTON PA-C ; [facility] ProAir HFA 108 (90 Base)MCG/ ACT Inhalation Aerosol Solution 08/24/2017 Provider: PILI GARZA BARREL RIFLER OPERATOR-BC Diagnosis: Wheezing use as directed 2 puffs every 4-6 hours as neede d Last Documented On 7 1:23PM By PILI CALIXTO [facility] ; [facility] Past Medications on file Fluconazole 150 MG Oral Tablet 09/15/2023 - 09/26/2023 Provider: Diagnosis: Last Documented On 09/26/2023 7:16PM By Mireya Carrillo MA ; [facility] Azithromycin 250 MG Oral Tablet 07/14/2023 - 07/19/2023 Provider: CANDY MAYES-C Diagnosis: Acute suppr otit is media w/o spon rupt ear drum, bilateral Take two tablets on day 1. T hen, take one tablet on day 2-5 Last Documented On 07/14/2023 5:02PM By Candy MAYES ; [facility] Azithromycin 250 MG Oral Tablet 05/12/2022 - 07/12/2023 Provider: KRYSTAL GANN BARREL RIFLER OPERATOR-C Diagnosis: Acute serous israel tis media, right ear as directed take 2 tab po qd for 1 day then take 1 tab po qd for 4 days Last Documented On 3 1:19PM By Flori SCOTT ; [facility] Zithromax Z-Kurt 250 MG Oral Tablet 08/22/2021 - 01/15/2022 Provider: PILI MAYES-BC Diagnosis: Acute maxillary sinusitis, unspecified as directed Last Documented On 2 11:20AM By BYRON PENDLETONA ; [facility] Zofran 8 MG Oral Tablet 12/20/2019 - 12/25/2019 Provid er: RODDY DELAROSA PA-C Diagnosis: 1 tab po q 8 hrs PRN. Last Documented On 0 9:47AM By RODDY DELAROSA PA-C ; [facility] Topamax 50 MG Oral Tablet 12/17/2019 - 02/15/2020 Prov ider: RODDY DELAROSA PA-C Diagnosis: One tablet twice a day--this is an increase. Last Documented On 0 9:49AM By RODDY DELAROSA PA-C ; [facility] Cyclobenzaprine HCl 10 MG Oral Tablet 12/03/2019 - 12/08/2019 Provider: LUIZ JAIMES MD Diagnosis: One tablet daily muscle relaxer Last Documented On 0 11:50AM By LUIZ ROLON MD ; [facility] Topamax 25 MG Oral Tablet 11/29/2019 - 12/22/2019 Provider: RODDY DELAROSA PA-C Diagnosis: Migraine w/o aur a, not intractable, w/o status migrainosus 1 tab PO daily x 1 wk then i ncrease to 1 tab BID. Use generic. Last Documented On 0 9:48AM By RODDY DELAROSA PA-C ; [facility] Aviane 0.1-20 MG-MCG Oral Tablet 11/17/2019 - 02/09/2020 Provider: RUTHANN ROMANO RN [facility] Diagnosis: Encounter for in itial prescription of contraceptive pills One tablet daily TAKE DIR ECTED START Friday AFTER NEXT MENSES back up method pack one Last Documented On 0 11:58AM By RUTHANN BLANCO-BC ; [facility] Benzonatate 200 MG Oral Capsule 10/18/2019 - 11/29/2019 Provider: RODDY DELAROSA PA-C Diagnosis: Fever, unspecifi ed One tablet three times a day One tablet 2-3 times a day PRN cough Last Documented On 11/29/2019 9:15AM By Dian Roberto CMA ; [facility] Xofluza 2 x 40 MG Oral Tablet Therapy Pack 10/18/2019 - 11/29/2019 Provider: RODDY DELAROSA PA-C Diagnosis: Flu due to oth i dent influenza virus w oth resp manifest 2 tabs PO qd x 1; has copay card Last Documented On 11/29/2019 9:16AM By Dian Roberto CMA ; [facility] Azithromycin 500 MG Oral Tablet 10/16/2019 - 11/29/2019 Provider: PILI CALIXTO [facility]- Diagnosis: Acute maxillary sinusitis, unspecified One tablet daily Last Documented On 11/29/2019 9:15AM By Dian Roberto CMA ; [facility] Ketorolac Tromethamine 10 MG Oral Tablet 08/03/2019 - 09/17/2019 Provider: Diagnosis: Last Documented On 0 2:24PM By PAYAL SCOTT ; [facility] Naproxen 500 MG Oral Tablet 08/03/2019 - 09/17/2019 Provider: RUTHANN ROMANO RN MEGHA Diagnosis: Pelvic and perin eal pain One tablet twice a day USE A S DIRECTED W/FOOD DON'T EXCEED 2 IN 24 HOURS Last Documented On 0 2:24PM By PAYAL SCOTT ; [facility] Condoms Miscellaneous 08/03/2019 - 09/17/2019 Provider: RUTHANN ROMANO RN MEGHA Diagnosis: Encounter for ot h general cnsl and advice on contraception as directed Last Documented On 0 2:23PM By PAYAL SCOTT ; [facility] Levaquin 250 MG Oral Tablet 08/02/2019 - 09/17/2019 Pr ovider: RODDY DELAROSA PA-C Diagnosis: ONE TAB BID Last Documented On 0 2:23PM By PAYAL SCOTT ; [facility] Zofran 8 MG Oral Tablet 07/16/2019 - 09/17/2019 Provid er: RODDY DELAROSA PA-C Diagnosis: 1 TAB BID PRN Last Documented On 0 2:24PM By PAYAL SCOTT ; [facility] traMADol HCl 50 MG Oral Tablet 07/16/2019 - 09/17/2019 Provider: RODDY DELAROSA PA-C Diagnosis: 1 tab BID-TID PRN pain. Last Documented On 0 2:24PM By PAYAL SCOTT ; [facility] raNITIdine HCl 150 MG Oral Capsule 07/14/2019 - 09/17/2019 Provider: RODDY DELAROSA PA-C Diagnosis: Unspecified abdo koki pain 1 capsule daily Last Documented On 0 2:24PM By PAYAL SCOTT ; [facility] Azithromycin 500MG Oral Tablet 02/10/2019 - 02/16/2019 Provider: PILI CALIXTO BARREL RIFLER OPERATOR-BC Diagnosis: Acute sinusitis, unspecified One tablet daily Last Documented On 9 10:17AM By DIAMOND SCOTT ; [facility] Cefuroxime Axetil 500MG Oral Tablet 02/08/2019 - 02/16 Provider: Diagnosis: Last Documented On 9 10:18AM By DIAMOND SCOTT ; [facility] Cyclobenzaprine HCl 5MG Oral Tablet 02/08/2019 - 07/14/2019 Provider: KRYSTAL GANN BARREL RIFLER OPERATOR-C Diagnosis: Migraine w/o aur a, intractable, without status migrainosus One tablet three times a day prn Last Documented On 9 1:09PM By PAYAL SCOTT ; [facility] Bactrim DS 800-160MG Oral Tablet 01/06/2019 - 02/08/2019 Provider: KATHY Farrell Diagnosis: Urinary tract infection, site not specified One tablet twice a day Last Documented On 9 10:28AM By BYRON SCOTT ; [facility] Azithromycin 500MG Oral Tablet 09/01/2018 - 07/14/2019 Provider: RUTHANN ROMANO RN [facility] BC Diagnosis: Acute vaginitis as directed 2 TABLETS NOW Last Documented On 9 1:04PM By PAYAL SCOTT ; [facility] Azithromycin 500MG Oral Tablet 09/01/2018 - 07/14/2019 Provider: RUTHANN ROMANO RN MEGHA Diagnosis: Acute vaginitis as directed 2 TABLETS NOW Last Documented On 9 1:04PM By PAYAL SCOTT ; [facility] Azithromycin 500MG Oral Tablet 07/01/2018 - 09/01/2018 Provider: PILI CALIXTO BARREL RIFLER OPERATOR- Diagnosis: Cough One tablet daily Last Documented On 9 2:00PM By SWETA SCOTT ; [facility] Ventolin HFA 108 (90 Base)MCG/ACT Inhalation Aerosol, solution 07/01/2018 - 09/01/2018 Provider: PILI CALIXTO BARREL RIFLER OPERATOR- Diagnosis: Wheezing as directed Last Documented On 9 2:00PM By SWETA SCOTT ; [facility] Medrol 4MG Oral Tablet Therapy Pack 07/01/2018 - 09/01/2018 Provider: PILI CALIXTO [facility]- Diagnosis: Wheezing as directed Last Documented On 9 2:00PM By SWETA SCOTT ; [facility] Kyleena 19.5MG Intrauterine Intrauterine device 02/24/2018 - 09/01/2019 Provider: Diagnosis: insertion 02/24/2018 Last Documented On 0 9:44AM By RUTHANN ROMANO MEGHA- ; [facility] Cyclobenzaprine HCl 10MG Oral Tablet 02/10/2018 - 07/14/2019 Provider: SHANT STRATTON PA-C Diagnosis: Strain of muscle , fascia and tendon at neck level, init 1 po q 8 hrs prn Last Documented On 9 1:09PM By PAYAL SCOTT ; [facility] Quasense 0.15-0.03MG Oral Tablet 10/14/2017 - 02/11/20 18 Provider: Diagnosis: Last Documented On 02/10/2018 1:45PM By DEBBIE SCOTT ; [facility] Levonorgest-Eth Estrad 91-Day 0.15-0.03MG Oral Tablet 10/14/2017 - 02/24/2018 Provider: CAROL PANG MD Diagnosis: Encounter for surveillance of contraceptive pills One tablet daily Last Documented On 02/24/2018 1:42PM By Sindi Hinton MA ; [facility] Mobic 15MG Oral Tablet 09/22/2017 - 07/14/2019 Provide r: SHANT STRATTON PA-C Diagnosis: One tablet daily Last Documented On 9 1:09PM By PAYAL SCOTT ; [facility] Cyclobenzaprine HCl 10MG Ora l Tablet 09/10/2017 - 07/14/2019 Provider: CANDACE FIERRO [facility]- Diagnosis: TAKE 1 TABLET BY MOUTH EVERY 8 HOURS NEEDED Last Documented On 9 1:08PM By PAYAL SCOTT ; [facility] Zithromax Z-Kurt 250MG Oral Tablet 08/27/2017 - 09/12/2017 Provider: PILI CALIXTO BARREL RIFLER OPERATOR-BC Diagnosis: Cough as directed Last Documented On 09/12/2017 10:06AM By DEBBIE SCOTT ; [facility] Cyclobenzaprine HCl 10MG Ora l Tablet 07/08/2017 - 09/10/2017 Provider: CANDACE FIERRO [facility]- Diagnosis: TAKE 1 TABLET BY MOUTH EVERY 8 HOURS NEEDED Last Documented On 8 1:47PM By CANDACE GUERRERO [facility] ; [facility] Mobic 15MG Oral Tablet 07/02/2017 - 09/22/2017 Provider: SHANT RINCON CH, PA-C Diagnosis: Radiculopathy, lumbosacral region One tablet daily Last Documented On 8 9:16PM By SHANT STRATTON PA-C ; [facility] Cyclobenzaprine HCl 10MG Ora l Tablet 06/18/2017 - 07/08/2017 Provider: SHANT RINCON CH, PA-C Diagnosis: TAKE 1 TABLET BY MOUTH EVERY 8 HOURS NEEDED Last Documented On 7 1:09PM By CANDACE GUERRERO [facility] ; [facility] Levonorgest-Eth Estrad 91-Day 0.15-0.03MG Oral Tablet 06/18/2017 - 10/14/2017 Provider: CAROL PANG MD Diagnosis: 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) w/o abn findings One tablet daily starting Friday08/03/17 please Last Documented On 10/14/2017 3:37PM By CAROL PANG MD ; [facility] Naprosyn 500MG Oral Tablet 06/18/2017 - 07/14/2019 Provider: SHANT STRATTON PA-C Diagnosis: Radiculopathy, lumbosacral region One tablet twice a day Last Documented On 9 1:09PM By PAYAL SCOTT ; [facility] Cyclobenzaprine HCl 10MG Oral Tablet 06/18/2017 - 08/25 Provider: Diagnosis: Last Documented On 09/12/2017 10:06AM By DEBBIE SCOTT ; [facility] MedroxyPROGESTERone Acetate 150MG/ML Intramuscular Suspension 06/18/2017 - 09/12/2017 Provider: Diagnosis: Last Documented On 09/12/2017 10:13AM By DEBBIE SCOTT ; [facility] Cyclobenzaprine HCl 10MG Oral Tablet 06/04/2017 - 06/18/2017 Provider: SHANT STRATTON PA-C Diagnosis: Radiculopathy, lumbosacral region 1 po q 8 hrs prn Last Documented On 7 4:02PM By SHANT STRATTON PA-C ; [facility] Mobic 15MG Oral Tablet 06/04/2017 - 07/14/2019 Provider: SHANT RINCON CH, PA-C Diagnosis: Radiculopathy, lumbosacral region One tablet daily Last Documented On 9 1:06PM By PAYAL SCOTT ; [facility] PredniSONE 20MG Oral Tablet 05/20/2017 - 07/14/2019 Provider: SHANT RINCON CH, PA-C Diagnosis: Pain in right kn ee One tablet twice a day Last Documented On 9 1:06PM By PAYAL SCOTT ; [facility] Triamcinolone Acetonide 0.5% External Ointment 03/02/2017 - 05/20/2017 Provider: FELIPA DAVIS BARREL RIFLER OPERATOR-BC Diagnosis: Unspecified cont act dermatitis due to plants, except food Apply twice a day Last Documented On 05/20/2017 9:17AM By DEBBIE SCOTT ; [facility] PredniSONE 20MG Oral Tablet 03/02/2017 - 05/20/2017 Provider: FELIPA DAVIS BARREL RIFLER OPERATOR-BC Diagnosis: Unspecified cont act dermatitis due to plants, except food 1 tab three times daily for 3 days, then 1 tab twice daily for 2 days, then 1 tab once daily for 2 days Last Documented On 05/20/2017 9:17AM By DEBBIE SCOTT ; [facility] Vistaril 25MG Oral Capsule 12/04/2016 - 05/20/2017 Provider: PILI CALIXTO BARREL RIFLER OPERATOR-BC Diagnosis: Urticaria, unspe cified 1 every 6 hours as needed Last Documented On 05/20/2017 9:18AM By DEBBIE SCOTT ; [facility] PredniSONE 20MG Oral Tablet 12/04/2016 - 01/31/2017 Provider: PILI CALIXTO BARREL RIFLER OPERATOR-BC Diagnosis: Urticaria, unspe cified One tablet twice a day Last Documented On 7 5:59PM By FLORI SCOTT ; [facility] Tylenol with Codeine #3 300-30MG Oral Tablet 7 - 05/20/2017 Provider: Diagnosis: Last Documented On 05/20/2017 9:18AM By DEBBIE SCOTT ; [facility] Bactrim DS 800-160MG Oral Tablet 11/26/2016 - 07/14/2019 Provider: SHANT STRATTON PA-C Diagnosis: Other cystitis without hematuria One tablet twice a day Last Documented On 9 1:05PM By PAYAL SCOTT ; [facility] Fioricet/Codeine 10-300-85-30MG Oral Capsule, conventional 11/22/2016 - 11/26/2016 Provider: KRYSTAL GANN BARREL RIFLER OPERATOR-C Diagnosis: Migraine w/o aur a, not intractable, w/o status migrainosus 1 every 6 hours as needed Last Documented On 7 3:17PM By SWETA SCOTT ; [facility] Ondansetron 4MG Oral Tablet Dispersible 11/22/2016 - 01/31/2017 Provider: KRYSTAL [place] BARREL RIFLER OPERATOR-C Diagnosis: Nausea 1 every 6 hours as needed Last Documented On 7 5:59PM By FLORI SCOTT ; [facility] Clindamycin Phosphate 1% External Lotion 10/07/2016 - 11/20/2016 Provider: FELIPA DAVIS [facility] Diagnosis: Other specified follicular disorders apply twice daily to affecte d areas x 2 months Last Documented On 11/20/2016 3:22PM By DEBBIE SCOTT ; [facility] Singulair 10 MG Tablet 09/02/2016 - 10/14/2017 Provider: SHANT STRATTON PA-C Diagnosis: Allergic rhiniti s due to pollen One tablet daily Last Documented On 8 2:44PM By SHANT STRATTON PA-C ; [facility] Azithromycin 250 MG Tablet 07/04/2016 - 09/16/2016 Provider: PILI CALIXTO [facility] Diagnosis: Streptococcal pharyngitis as directed Last Documented On 7 1:38PM By VENECIA SCOTT ; [facility] MedroxyPROGESTERone Acetate 150 MG/ML Suspension 06/12/2016 - 07/14/2019 Provider: CAROL PANG MD Diagnosis: as directed Last Documented On 9 1:08PM By PAYAL SCOTT ; [facility] MedroxyPROGESTERone Acetate 150 MG/ML Suspension 05/30/2016 - 06/12/2016 Provider: Diagnosis: Last Documented On 06/12/2016 1:49PM By CAROL PANG MD ; [facility] Triamcinolone Acetonide 0.5 % Ointment 04/03/2016 - 06/12/2016 Provider: FELIPA DAVIS [facility] Diagnosis: Allergic urticar ia Apply twice a day to rash on left leg Last Documented On 06/12/2016 1:25PM By JAI FUNG ; [facility] Zofran ODT 4 MG Tablet Dispersible 03/12/2016 - 09/16/2016 Provider: FELIPA DAVIS [facility] Diagnosis: Infectious gastroenteritis and colitis, unspecified 1 every 6 hours as needed for nausea Last Documented On 7 1:38PM By VENECIA SCOTT ; [facility] Depo-Provera 150 MG/ML Suspension 02/23/2016 - 019 Provider: CAROL PANG MD Diagnosis: as directed Last Documented On 9 1:08PM By PAYAL SCOTT ; [facility] Singulair 5 MG Tablet, chewable 02/23/2016 - 7 Provider: Diagnosis: Last Documented On 11/20/2016 3:22PM By DEBBIE SCOTT ; [facility] Estradiol 1 MG Tablet 02/23/2016 - 07/14/2019 Provider: CAROL PANG MD Diagnosis: Excessive and fr equent menstruation with irregular cycle One tablet daily Last Documented On 9 1:09PM By PAYAL SCOTT ; [facility] Azithromycin 250 MG Tablet 01/13/2016 - 02/23/2016 Provider: KRYSTAL MAYES-C Diagnosis: Streptococcal pharyngitis take 2 tablets po qd for 1 d ay then take 1 tab po qd for 4 days Last Documented On 6 10:24AM By TONI SCOTT ; [facility] Ofloxacin 0.3 % Solution 12/21/2015 - 02/23/2016 Provider: KRYSTAL POWELL Diagnosis: Unspecified otit is externa, right ear 10 drops in left ear once daily for 7 days Last Documented On 6 10:24AM By TONI SCOTT ; [facility] Hydrocortisone Acetate 25 MG Suppository 11/10/2015 - 12/21/2015 Provider: FELIPA DAVIS BARREL RIFLER OPERATOR-BC Diagnosis: Other hemorrhoid s once or twice daily, insert via rectum Last Documented On 12/21/2015 2:17PM By XAVI SCOTT ; [facility] Medrol (Kurt)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
--- NOTE | 2025-06-19 09:37 | ED.FALL ---
HPI - Fall General Stated Complaint: Right Ankle Injury Time Seen by Provider: 06/19/25 09:37 Source: patient Mode of arrival: ambulatory Limitations: no limitations History of Present Illness HPI Narrative: 29-year-old female returned today for x-ray of right ankle. She was seen here last night when we did not have an x-ray tech to do imaging. Yesterday she was walking out to garage and rolled right ankle. Swelling is worse today. Distal neurovascularly intact, range of motion decreased due to pain. All systems reviewed and negative except as noted above. Related Data Home Medications ?Medication ?Instructions ?Recorded ?Confirmed ?Last Taken ?Type cholecalciferol (vitamin D3) 1,250 1,250 mcg PO WEEKLY 03/19/22 05/30/25 05/22/25 History mcg (50,000 unit) capsule Allergies Allergy/AdvReac Type Severity Reaction Status Date / Time hydrocodone Allergy Severe Rash Verified 06/19/25 10:25 Penicillins Allergy Severe Anaphylaxis Verified 06/19/25 10:25 adhesive tape Allergy Intermediate Rash Verified 06/19/25 10:25 amoxicillin Allergy Intermediate Rash Verified 06/19/25 10:25 doxycycline Allergy Intermediate Rash Verified 06/19/25 10:25 nitrofurantoin Allergy Intermediate Hives Verified 06/19/25 10:25 phentermine AdvReac Intermediate Hypertensio Verified 06/19/25 10:25 n PMFSH Past Medical History Medical History (Updated 06/19/25 @ 10:23 by Addis Hilton APRN) Asthma GERD (gastroesophageal reflux disease) Ovarian cyst Morbid obesity Surgical History Surgical History Hx of cholecystectomy H/O eye surgery Family History Family History Father Colon cancer Diabetes mellitus Heart disease Cirrhosis Patient's father is , Onset Age: 58 Cerebrovascular accident Grandparent Ovarian cancer Diabetes mellitus Heart disease Hypertension Cerebrovascular accident Sibling Yepez's palsy Social History Social History Social History: never smoker Smoking status: Never smoker Alcohol intake: never Substance use: never Lack of Transportation: No Lack of Food: Never True Current Housing: I Have Housing Concerned About Future Housing: No Difficulty Paying Gas/Electric Bills: No Difficulty Paying for Meds: No Currently Unemployed: No Education: High School Diploma/GED Difficulty w/ Childcare or Family Care: No Living arrangements: with family Spiritual care concerns: No Comments At time of signature, agree with nursing past medical, surgical, social and family history. There is no relevant family history pertinent to the presenting complaint. Exam Narrative: GENERAL: This is a well-nourished, well-developed patient, in no apparent distress. HEAD: normocephalic, atraumatic. EYES: PERRL. Sclera clear/white. Vision is grossly intact. EARS: External ears normal NOSE: External nose normal NECK: Neck supple, non-tender without lymphadenopathy, masses or thyromegaly. CARDIOVASCULAR: Regular rate and rhythm without murmurs, gallops, or rubs. RESPIRATORY: Clear to auscultation. Breath sounds equal bilaterally. No wheezes, rales, or rhonchi. SKIN: warm, Dry, intact with no suspicious lesions or rash, good texture and turgor. NEURO: awake, alert, and oriented to person, place and time. There were no obvious focal neurologic abnormalities. EXTREMITIES: Oqea-tl-[id number] amount of swelling to lateral aspect of right ankle with tenderness on exam. No deformity noted. Range of motion decreased due to pain. Distal neurovascularly intact. Course Course Level of Care: Express Care Visit Vital Signs Vital signs: Reviewed MDM - Fall MDM Narrative Medical decision making narrative: x-ray of right ankle negative for fracture. Discussed results with patient. Will continue to wear Leo wrap to compress swelling. Patient given crutches last night. Recommend rice. Will follow up with primary care physician if pain is not improving. Differential Diagnosis Differential diagnosis: Likely other ( ankle fracture, ankle sprain) Imaging Data My impression: agree with radiologist Radiologist's impression: Examination: XR ankle RT min 3V Clinical History: tenderness lateral aspect after inversion fall Comparison: None Technique: 4 views right ankle Findings/impression: 1. No fracture or dislocation right ankle. 2. Lateral ankle soft tissue swelling. Discharge Plan Discharge Clinical Impression: Moderate right ankle sprain Qualifiers: Encounter type: initial encounter Qualified Code(s): S93.401A - Sprain of unspecified ligament of right ankle, initial encounter Patient Disposition: Home Condition: Stable Instructions: Ankle Sprain (ED) Additional Instructions: The x-ray of your right ankle was negative for fracture. Use crutches for the next 5-7 days. Take ibuprofen or Tylenol every 6-8 hours as needed for pain. Elevate when at rest. Apply ice as needed for pain. Avoid activities that increase pain such as running and jumping. See your primary care physician if symptoms are not improving. Patient Language: Lao Prescriptions: No Action cholecalciferol (vitamin D3) 1,250 mcg (50,000 unit) capsule 1,250 mcg PO WEEKLY Follow-up/Referrals: Harms,Los Carty M.D. [Primary Care Provider] Stand Alone Forms: Work/School Release IP Time of Disposition: 10:23
== END 2025-06-19 10:26 | disposition home or self-care (01) ==
PROVIDERS: Emergency Provider Nurse Practitioner Family; PCP Family Medicine
DX: S93.401A Sprain of unspecified ligament of right ankle, initial encounter (principal); X50.9XXA Other and unspecified overexertion or strenuous movements or postures, initial encounter; J45.909 Unspecified asthma, uncomplicated; K21.9 Gastro-esophageal reflux disease without esophagitis; E66.01 Morbid (severe) obesity due to excess calories; Z68.41 Body mass index [BMI] 40.0-44.9, adult
CPT/HCPCS: 73610; 99213; G0463